=== PATIENT | male | born 1940 | race Caucasian/White ===

== ENCOUNTER 2016-06-24 04:19 | Emergency (ER) | payer MEDICARE, BC ==
[2016-06-24 04:48] VITALS: RESP 18; TEMP 97.8
[2016-06-24] MEDS ORDERED: LORazepam 2 MG/ML SYRINGE IV STA (05:15)
[2016-06-24] MEDS ORDERED: SODIUM CHLORIDE 0.9% 1,000 ML IV STA (05:15)
[2016-06-24] MEDS ORDERED: SODIUM CHLORIDE 0.9% 500 ML IV STA (05:15)
[2016-06-24] MEDS ORDERED: methylPREDNISolone SOD SUCCI 125 MG/2 ML VIAL IV STA (05:15)
[2016-06-24] MEDS ORDERED: HYDROmorphone 1 MG/ML 1 ML SYRINGE IVP STA (05:15)
--- NOTE | 2016-06-24 05:21 | ED ---
Neck Injury/Pain HPI - General Chief Complaint: Neck Pain/Injury Stated Complaint: back/neck pain, corey Time Seen by Provider: 06/24/16 04:55 Source: patient, RN notes reviewed Mode of arrival: wheelchair Limitations: no limitations - History of Present Illness Initial Comments: This is a 76-year-old male who states he had the onset about one week ago some left-sided neck pain it went away and came back as across both sides of his neck he states he has difficulty turning his head because of neck pain he points to the the paraspinous muscles especially on the left he denies any fevers chills sweats blurry vision loss of function to his upper or lower extremities no trauma. He states pain is sharp and 03/05 MD Complaint: neck pain - Related Data Home Medications Medication Instructions Recorded Confirmed Losartan [Cozaar] 50 mg PO DAILY 06/02/15 06/24/16 Metoprolol Tartrate 25 mg PO BID 06/02/15 06/24/16 Tamsulosin HCl [Flomax] 0.4 mg PO HS 06/02/15 06/24/16 Terazosin HCl 5 mg PO HS 06/02/15 06/24/16 Aspirin 81 mg PO DAILY 09/19/15 06/24/16 Prasugrel [Effient] 10 mg PO DAILY 09/19/15 06/24/16 Previous Rx's Medication Instructions Recorded Atorvastatin [Lipitor] 80 mg PO HS #30 tab 06/04/15 Nitroglycerin Sl Tabs [Nitrostat] 0.4 mg SUBLINGUAL Q5M PRN #25 tab 06/04/15 Hydrocodone/Acetaminophen [[place] 1 each PO Q6HR PRN #20 tab 06/24/16 5-325] predniSONE 20 mg PO BID #10 tab 06/24/16 Allergies Allergy/AdvReac Type Severity Reaction Status Date / Time No Known Allergies Allergy Verified 09/19/15 09:12 Review of Systems ROS Statement: Those systems with pertinent positive or pertinent negative responses have been documented in the HPI. ROS Other: All systems not noted in ROS Statement are negative. Past Medical History Past Medical History: Coronary Artery Disease (CAD), Heart Failure, GERD/Reflux , Hyperlipidemia, Hypertension, Myocardial Infarction ([place]), Osteoarthritis (OA) , Prostate Disorder, Thyroid Disorder Additional Past Medical History / Comment(s): Lumbar disc disease, HERNIATED DISC IN BACK. Diverticular disease with diverticulosis BPH dysthymia Last Myocardial Infarction Date:: UNK History of Any Multi-Drug Resistant Organisms: None Reported Past Surgical History: Adenoidectomy, Heart Catheterization With Stent, Joint Replacement, Tonsillectomy Additional Past Surgical History / Comment(s): LT KNEE REPLACMENT. polypectomy colon 2010, epidural steroid injections, 09-19-15 HEART CATH W/STENT TO CIRC. Past Anesthesia/Blood Transfusion Reactions: No Reported Reaction Date of Last Stent Placement:: UNK Past Psychological History: No Psychological Hx Reported Smoking Status: Former smoker Past Alcohol Use History: Occasional Past Drug Use History: None Reported - Past Family History Father History Unknown: Yes Family Medical History: Cancer Mother History Unknown: Yes Family Medical History: Congestive Heart Failure (CHF) Additional Family Medical History / Comment(s): AT AGE 94 General Exam - General Exam Comments Initial Comments: This is a well-developed well-nourished awake alert oriented x 3 male Limitations: no limitations General appearance: alert, in no apparent distress, anxious Head exam: Present: atraumatic, normocephalic, normal inspection Eye exam: Present: normal appearance, PERRL, EOMI. Absent: scleral icterus, conjunctival injection, periorbital swelling ENT exam: Present: normal exam, mucous membranes moist Neck exam: Present: normal inspection, tenderness, other (Tennis palpation of the paraspinous muscles especially the upper cervical spine.). Absent: meningismus, full ROM, lymphadenopathy Respiratory exam: Present: normal lung sounds bilaterally. Absent: respiratory distress, wheezes, rales, rhonchi, stridor Cardiovascular Exam: Present: regular rate, normal rhythm, normal heart sounds. Absent: systolic murmur, diastolic murmur, rubs, gallop, clicks GI/Abdominal exam: Present: soft, normal bowel sounds. Absent: distended, tenderness, guarding, rebound, rigid Extremities exam: Present: normal inspection, full ROM, normal capillary refill. Absent: tenderness, pedal edema, joint swelling, calf tenderness Back exam: Present: normal inspection Neurological exam: Present: alert, oriented X3, CN II-XII intact Psychiatric exam: Present: normal affect, normal mood Skin exam: Present: warm, dry, intact, normal color. Absent: rash Course Vital Signs 06/24/16 04:43 Temperature 97.8 F Pulse Rate 71 Respiratory 18 Rate Blood Pressure 118/65 O2 Sat by Pulse 98 Oximetry Medical Decision Making - Medical Decision Making Patient states he's been much improved his pain is on O2 at this time elected: Be discharged on appropriate medication is a follow-up with his doctor and return when necessary - Lab Data Result diagrams: 06/24/16 05:30 06/24/16 05:30 Lab Results 06/24/16 06/24/16 Range/Units 05:30 05:30 WBC 7.5 (3.8-10.6) k/uL RBC 5.06 (4.30-5.90) m/uL Hgb 14.1 (13.0-17.5) gm/dL Hct 43.3 (39.0-53.0) % MCV 85.5 (80.0-100.0) fL MCH 27.8 (25.0-35.0) pg MCHC 32.5 (31.0-37.0) g/dL RDW 13.7 (11.5-15.5) % Plt Count 124 L (150-450) k/uL Neutrophils % 68 % Lymphocytes % 22 % Monocytes % 6 % Eosinophils % 3 % Basophils % 1 % Neutrophils # 5.1 (1.3-7.7) k/uL Lymphocytes # 1.7 (1.0-4.8) k/uL Monocytes # 0.4 (0-1.0) k/uL Eosinophils # 0.2 (0-0.7) k/uL Basophils # 0.0 (0-0.2) k/uL Sodium 138 (137-145) mmol/L Potassium 4.6 (3.5-5.1) mmol/L Chloride 105 (98-107) mmol/L Carbon Dioxide 20 L (22-30) mmol/L Anion Gap 13 mmol/L BUN 32 H (9-20) mg/dL Creatinine 1.10 (0.66-1.25) mg/dL Est GFR (MDRD) Af Amer >60 (>60 ml/min/1.73 sqM) Est GFR (MDRD) Non-Af >60 (>60 ml/min/1.73 sqM) Glucose 105 H (74-99) mg/dL Calcium 9.5 (8.4-10.2) mg/dL Magnesium 2.1 (1.6-2.3) mg/dL Total Bilirubin 0.7 (0.2-1.3) mg/dL AST 16 L (17-59) U/L ALT 36 (21-72) U/L Alkaline Phosphatase 80 (38-126) U/L Total Protein 7.4 (6.3-8.2) g/dL Albumin 4.1 (3.5-5.0) g/dL - Radiology Data Radiology results: report reviewed (I did review the x-ray reports and degenerative changes noted.), image reviewed Disposition Clinical Impression: Strain of neck muscle Disposition: HOME SELF-CARE Condition: Good Instructions: Cervical Strain (ED) Prescriptions: Hydrocodone/Acetaminophen [[place] 5-325] 1 each PO Q6HR PRN #20 tab PRN Reason: Pain predniSONE 20 mg PO BID #10 tab
[2016-06-24 05:51] LABS: Basophils % (A) 1 %; CHCM 34.1; Eosinophils # (A) 0.2 k/uL (0-0.7); Eosinophils % (A) 3 %; HCT 43.3 % (39.0-53.0); HDW 2.51; HGB 14.1 gm/dL (13.0-17.5); Luc # (Auto) 0.07; Luc % (Auto) 1; Lymphocytes # (A) 1.7 k/uL (1.0-4.8); Lymphocytes % (A) 22 %; MCH 27.8 pg (25.0-35.0); MCHC 32.5 g/dL (31.0-37.0); MCV 85.5 fL (80.0-100.0); Mean Platelet Volume 8.1; Monocytes # (A) 0.4 k/uL (0-1.0); Monocytes % (A) 6 %; Neutrophils # (A) 5.1 k/uL (1.3-7.7); Neutrophils % (A) 68 %; RBC 5.06 m/uL (4.30-5.90); RDW 13.7 % (11.5-15.5); WBC 7.5 k/uL (3.8-10.6); WBC (Perox) 7.84
[2016-06-24 06:06] LABS: ALT 36 U/L (21-72); AST 16 U/L (17-59); Alkaline Phosphatase 80 U/L (38-126); Anion Gap 13 mmol/L; Blood Urea Nitrogen 32 mg/dL (9-20); Calcium 9.5 mg/dL (8.4-10.2); Carbon Dioxide 20 mmol/L (22-30); Chloride 105 mmol/L (98-107); Glucose 105 mg/dL (74-99); Magnesium 2.1 mg/dL (1.6-2.3); Non-African American GFR(MDRD) >60 (>60 ml/min/1.73 sqM); Potassium 4.6 mmol/L (3.5-5.1); Sodium 138 mmol/L (137-145); Total Bilirubin 0.7 mg/dL (0.2-1.3); Total Protein 7.4 g/dL (6.3-8.2)
--- NOTE | 2016-06-24 06:18 | XR ---
EXAMINATION TYPE: XR cervical spine comp DATE OF EXAM: 06/24/2016 6:02 AM COMPARISON: NONE HISTORY: Neck pain TECHNIQUE: 6 views FINDINGS: The vertebra have Fairly normal alignment. There are no cervical ribs. Atlantoaxial facet joint is no t displaced. There is mild spurring of the endplates. Posterior elements are intact. There is uncover tebral spurring and mild bilateral C5-6 neural foraminal impingement. IMPRESSION: Mild spondylotic changes. No fracture.
[2016-06-24 06:42] LABS: Creatine Kinase MB 0.4 ng/mL (0.0-2.4)
[2016-06-24 06:55] VITALS: BP 140/68; PULSE 74
== END 2016-06-24 06:54 | disposition home or self-care (01) ==
LOC: EC 04:19
DX: S16.1XXA Strain of muscle, fascia and tendon at neck level, initial encounter (principal); X58.XXXA Exposure to other specified factors, initial encounter; I10 Essential (primary) hypertension; E78.5 Hyperlipidemia, unspecified; I25.2 Old myocardial infarction; N40.0 Benign prostatic hyperplasia without lower urinary tract symptoms; I25.10 Atherosclerotic heart disease of native coronary artery without angina pectoris; Z79.02 Long term (current) use of antithrombotics/antiplatelets; Z79.899 Other long term (current) drug therapy; Z79.82 Long term (current) use of aspirin; Z95.5 Presence of coronary angioplasty implant and graft; Z87.891 Personal history of nicotine dependence
CPT/HCPCS: 36415; 80053; 82550; 82553; 83735; 85025; 72050; 99283; 96374; 96375; 96361; J2060; J2930; J1170

== ENCOUNTER 2020-03-20 05:23 | Observation (INO) | payer MEDICARE, BC ==
[2020-03-20 05:40] LABS: Glucose,Whole Blood 110 mg/dL (75-99)
[2020-03-20] MEDS ORDERED: MECLIZINE 12.5 MG TAB PO STA ×2 (05:48→08:25)
--- NOTE | 2020-03-20 05:59 | ED ---
Dizziness HPI - General Source: EMS Mode of arrival: EMS Limitations: no limitations - History of Present Illness MD Complaint: other (Vertigo) Onset/Timin -: hour(s) Timing: gradual onset Description: "room spinning" History of Same: No History of Trauma: No Severity: moderate Improves With: remaining still Worsens With: movement Associated Symptoms: denies other symptoms <Tomer Castanon - Last Filed: 03/20/20 05:55> <Issa Gonsalves - Last Filed: 03/20/20 10:19> - General Chief Complaint: Dizziness Stated Complaint: Dizziness Time Seen by Provider: 03/20/20 05:34 - History of Present Illness Initial Comments: This patient is an 79-year-old man who states that he had gotten up to use the bathroom tonight around 2 AM. When he sat up at the bedside he noticed that he had an intense spinning sensation and that he wanted to fall towards his right side. Patient states that now every time he tries to move his head the sensation recurs. The symptoms do improve if he remains very still. There is no chest pain, dyspnea, diaphoresis. No neurologic symptoms. No headache. (Tomer Castanon) - Related Data Home Medications Medication Instructions Recorded Confirmed Metoprolol Tartrate 25 mg PO BID 06/02/15 03/20/20 Terazosin HCl 5 mg PO HS 06/02/15 03/20/20 Aspirin 81 mg PO DAILY 09/19/15 03/20/20 Prasugrel [Effient] 10 mg PO DAILY 09/19/15 06/24/16 Hydrocodone/Acetaminophen [[place] 1 tab PO Q12H PRN 03/20/20 03/20/20 5-325] Losartan Potassium [Cozaar] 100 mg PO DAILY 03/20/20 03/20/20 Prednisolone Acetate/Pf 1 drop BOTH EYES BID 03/20/20 03/20/20 [Prednisolone Acet 1% Eye Drop] valACYclovir [Valtrex] 500 mg PO BID 03/20/20 03/20/20 Previous Rx's Medication Instructions Recorded Atorvastatin [Lipitor] 80 mg PO HS #30 tab 06/04/15 Nitroglycerin Sl Tabs [Nitrostat] 0.4 mg SUBLINGUAL Q5M PRN #25 tab 06/04/15 Allergies Allergy/AdvReac Type Severity Reaction Status Date / Time No Known Allergies Allergy Verified 03/20/20 05:36 Review of Systems ROS Other: All systems not noted in ROS Statement are negative. Constitutional: Denies: fever, chills, weakness Eyes: Denies: eye pain, vision change ENT: Denies: ear pain, hearing loss Respiratory: Denies: cough, dyspnea Cardiovascular: Denies: chest pain, palpitations, orthopnea, edema, syncope Gastrointestinal: Reports: nausea. Denies: abdominal pain, vomiting, diarrhea Genitourinary: Denies: dysuria, hematuria Musculoskeletal: Denies: back pain Skin: Denies: rash Neurological: Reports: vertigo. Denies: headache, weakness, numbness, paresthesias, confusion <KinaTomer - Last Filed: 03/20/20 05:55> ROS Other: All systems not noted in ROS Statement are negative. <Issa Gonsalves - Last Filed: 03/20/20 10:19> ROS Statement: Those systems with pertinent positive or pertinent negative responses have been documented in the HPI. Past Medical History Past Medical History: Coronary Artery Disease (CAD), Heart Failure, GERD/Reflux, Hyperlipidemia, Hypertension, Myocardial Infarction ([place]), Osteoarthritis (OA), Prostate Disorder, Thyroid Disorder Additional Past Medical History / Comment(s): Lumbar disc disease, HERNIATED DISC IN BACK. Diverticular disease with diverticulosis BPH dysthymia Last Myocardial Infarction Date:: UNK History of Any Multi-Drug Resistant Organisms: None Reported Past Surgical History: Adenoidectomy, Heart Catheterization With Stent, Joint Replacement, Tonsillectomy Additional Past Surgical History / Comment(s): LT KNEE REPLACMENT. polypectomy colon 2010, epidural steroid injections, 09-19-15 HEART CATH W/STENT TO CIRC. Past Anesthesia/Blood Transfusion Reactions: No Reported Reaction Date of Last Stent Placement:: UNK Past Psychological History: No Psychological Hx Reported Smoking Status: Former smoker Past Alcohol Use History: Occasional Past Drug Use History: None Reported - Past Family History Father History Unknown: Yes Family Medical History: Cancer Mother History Unknown: Yes Family Medical History: Congestive Heart Failure (CHF) Additional Family Medical History / Comment(s): AT AGE 94 <KinaTomer - Last Filed: 03/20/20 05:55> General Exam Limitations: no limitations General appearance: alert, in no apparent distress Head exam: Present: atraumatic, normocephalic Eye exam: Present: normal appearance, PERRL, EOMI, nystagmus. Absent: scleral icterus, conjunctival injection ENT exam: Present: normal oropharynx Neck exam: Present: normal inspection, full ROM. Absent: tenderness Respiratory exam: Present: normal lung sounds bilaterally. Absent: respiratory distress, wheezes, rales, rhonchi, stridor Cardiovascular Exam: Present: regular rate, normal rhythm, normal heart sounds. Absent: systolic murmur, diastolic murmur, rubs, gallop GI/Abdominal exam: Present: soft. Absent: distended, tenderness, guarding, rebound Extremities exam: Present: normal inspection, normal capillary refill. Absent: pedal edema, calf tenderness Neurological exam: Present: alert, oriented X3, CN II-XII intact. Absent: motor sensory deficit Skin exam: Present: warm, dry, intact, normal color. Absent: rash <Tomer Castanon - Last Filed: 03/20/20 05:55> Expanded Motor strength exam: RUE: 5, LUE: 5, RLE: 5, LLE: 5 <Issa Gonsalves - Last Filed: 03/20/20 10:19> Course <Issa Gonsalves - Last Filed: 03/20/20 10:19> Vital Signs 03/20/20 03/20/20 03/20/20 05:29 06:41 07:26 Temperature 98.3 F Pulse Rate 72 74 78 Respiratory 20 18 20 Rate Blood Pressure 170/101 142/91 146/89 O2 Sat by Pulse 98 95 98 Oximetry 03/20/20 08:54 Temperature 98.1 F Pulse Rate 77 Respiratory 16 Rate Blood Pressure 158/95 O2 Sat by Pulse 98 Oximetry - Reevaluation(s) Reevaluation #1: 03/20/20 08:31 patient reevaluated by myself, Dr. Gonsalves. Patient had earlier told Dr. Davis that he had felt better however at this time states he does feel no better than previous. Patient will be provided further medication and reevaluated. 03/20/20 09:53 patient again reevaluated and still does not feel all that much better. Patient states when he moves and tries to sit up he does feel dizzy and off balance. Patient updated on results and plan. Dr. Melvin has been paged for admission covering for Dr. Adames. 03/20/20 10:19 case was discussed with Dr. Melvin, who will admit. 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 - EKG Results: EKG: interpreted by ERMD, sinus rhythm (Rate 70 bpm), normal axis, normal ST/T <Tomer Castanon - Last Filed: 03/20/20 05:55> Medical Decision Making - Lab Data Result diagrams: 03/20/20 05:51 03/20/20 05:51 - Radiology Data Radiology results: report reviewed (CT angiogram head and neck shows moderate atrophy. No focal stenosis or aneurysmal change Stenosis right internal carotid artery 65% and left internal carotid artery 70%. No acute hemorrhage.) <Issa Gonsalves - Last Filed: 03/20/20 10:19> - Lab Data Lab Results 03/20/20 03/20/20 03/20/20 Range/Units 05:38 05:51 05:51 WBC 6.5 (3.8-10.6) k/uL RBC 4.96 (4.30-5.90) m/uL Hgb 14.2 (13.0-17.5) gm/dL Hct 44.3 (39.0-53.0) % MCV 89.3 (80.0-100.0) fL MCH 28.7 (25.0-35.0) pg MCHC 32.1 (31.0-37.0) g/dL RDW 14.2 (11.5-15.5) % Plt Count 153 (150-450) k/uL Neutrophils % 62 % Lymphocytes % 28 % Monocytes % 6 % Eosinophils % 3 % Basophils % 0 % Neutrophils # 4.0 (1.3-7.7) k/uL Lymphocytes # 1.8 (1.0-4.8) k/uL Monocytes # 0.4 (0-1.0) k/uL Eosinophils # 0.2 (0-0.7) k/uL Basophils # 0.0 (0-0.2) k/uL Sodium 135 L (137-145) mmol/L Potassium 4.6 (3.5-5.1) mmol/L Chloride 108 H (98-107) mmol/L Carbon Dioxide 20 L (22-30) mmol/L Anion Gap 7 mmol/L BUN 25 H (9-20) mg/dL Creatinine 1.00 (0.66-1.25) mg/dL Est GFR (CKD-EPI)AfAm 81 (>60 ml/min/1.73 sqM) Est GFR (CKD-EPI)NonAf 70 (>60 ml/min/1.73 sqM) Glucose 123 H (74-99) mg/dL POC Glucose (mg/dL) 110 H (75-99) mg/dL POC Glu [employer] Zarina Harrison Calcium 9.0 (8.4-10.2) mg/dL Total Bilirubin 0.5 (0.2-1.3) mg/dL AST 21 (17-59) U/L ALT 17 (4-49) U/L Alkaline Phosphatase 84 (38-126) U/L Troponin I (0.000-0.034) ng/mL Total Protein 7.0 (6.3-8.2) g/dL Albumin 3.9 (3.5-5.0) g/dL 03/20/20 Range/Units 05:51 WBC (3.8-10.6) k/uL RBC (4.30-5.90) m/uL Hgb (13.0-17.5) gm/dL Hct (39.0-53.0) % MCV (80.0-100.0) fL MCH (25.0-35.0) pg MCHC (31.0-37.0) g/dL RDW (11.5-15.5) % Plt Count (150-450) k/uL Neutrophils % % Lymphocytes % % Monocytes % % Eosinophils % % Basophils % % Neutrophils # (1.3-7.7) k/uL Lymphocytes # (1.0-4.8) k/uL Monocytes # (0-1.0) k/uL Eosinophils # (0-0.7) k/uL Basophils # (0-0.2) k/uL Sodium (137-145) mmol/L Potassium (3.5-5.1) mmol/L Chloride (98-107) mmol/L Carbon Dioxide (22-30) mmol/L Anion Gap mmol/L BUN (9-20) mg/dL Creatinine (0.66-1.25) mg/dL Est GFR (CKD-EPI)AfAm (>60 ml/min/1.73 sqM) Est GFR (CKD-EPI)NonAf (>60 ml/min/1.73 sqM) Glucose (74-99) mg/dL POC Glucose (mg/dL) (75-99) mg/dL POC Glu [employer]er D[employer] Ring ID Calcium (8.4-10.2) mg/dL Total Bilirubin (0.2-1.3) mg/dL AST (17-59) U/L ALT (4-49) U/L Alkaline Phosphatase (38-126) U/L Troponin I <0.012 (0.000-0.034) ng/mL Total Protein (6.3-8.2) g/dL Albumin (3.5-5.0) g/dL Disposition <Tomer Castanon - Last Filed: 03/20/20 05:55> Is patient prescribed a controlled substance at d/c from ED?: No Decision Time: 09:54 <Issa Gonsalves - Last Filed: 03/20/20 10:19> Clinical Impression: Vertigo Disposition: ADMITTED IP TO THIS HOSP
[2020-03-20 06:03] LABS: Basophils % (A) 0 %; Eosinophils # (A) 0.2 k/uL (0-0.7); Eosinophils % (A) 3 %; HCT 44.3 % (39.0-53.0); HGB 14.2 gm/dL (13.0-17.5); Lymphocytes # (A) 1.8 k/uL (1.0-4.8); Lymphocytes % (A) 28 %; MCH 28.7 pg (25.0-35.0); MCHC 32.1 g/dL (31.0-37.0); MCV 89.3 fL (80.0-100.0); Mean Platelet Volume 7.7; Monocytes # (A) 0.4 k/uL (0-1.0); Monocytes % (A) 6 %; Neutrophils % (A) 62 %; Platelet Count 153 k/uL (150-450); RBC 4.96 m/uL (4.30-5.90); RDW 14.2 % (11.5-15.5); WBC 6.5 k/uL (3.8-10.6)
[2020-03-20 06:10] LABS: Albumin 3.9 g/dL (3.5-5.0); Potassium 4.6 mmol/L (3.5-5.1); Total Bilirubin 0.5 mg/dL (0.2-1.3)
[2020-03-20] MEDS ORDERED: METOCLOPRAMIDE 5 MG/ML 2 ML VIAL IVP STA (08:25)
[2020-03-20] MEDS ORDERED: SCOPOLAMINE 1.5MG/72HR PATCH TRANSDERM STA (08:25)
--- NOTE | 2020-03-20 08:28 | CT ---
EXAMINATION TYPE: CT angio head neck DATE OF EXAM: 03/20/2020 HISTORY: dizziness code stroke. Acute onset neuro deficit. COMPARISON: None. CT DLP: 1741.4 mGycm. Automated Exposure Control for Dose Reduction was Utilized. TECHNIQUE: CTA scan of the head and neck are performed without and with IV Contrast, patient injecte d with 65 mL of Isovue 370, axial images are obtained, coronal and sagittal reformatted images are re viewed. Three-D reconstructed images are created on an independent workstation and reviewed. Noncontr ast CT head. FINDINGS: Carotid/Vascular Structures: Bovine-type arch. Moderate peripheral plaque in the arch vessels greates t in the left subclavian artery causing stenosis approaching but under 50%. Right common carotid ana maría ry shows normal origin from the right brachiocephalic artery. Some tortuous course to the right commo n carotid artery with mild to moderate mixed plaque distal aspects. No significant stenosis. Moderate mixed plaque right carotid bulb extends into proximal internal carotid artery with significant steno sis as there is more prominent posterior plaque, luminal diameter narrowed to 2.1 mm raw data image 3 95 and reconstitutes to 6.2 mm distal to this image 425. Remainder of right internal carotid artery shows mild to moderate calcified plaque supraclinoid segment without significant stenosis. Right exte rnal carotid artery shows no significant plaque or stenosis. Left common carotid artery shows tortuous course without significant plaque or stenosis. There is mor e severe mixed plaque predominantly noncalcified plaque at the left carotid bulb extending into proxi mal internal carotid artery causing significant stenosis. Lumen diameter narrowed to 2.1 mm raw data image 400 with reconstitution to 6.6 mm distally. Remainder left internal carotid artery shows mild t o moderate calcified plaque supraclinoid segment without significant stenosis. Patent external caroti d artery without significant stenosis. Codominant vertebrobasilar system. Vertebral arteries patent to basilar junction. No significant foca l stenosis or aneurysmal change in the posterior circulation. Patent left posterior communicating art garth. Hypoplastic right posterior communicating artery. Anterior circulation shows patent anterior communicating artery without significant focal stenosis or aneurysmal change. Incidental small caliber right A1 segment noted. Other: Noncontrast CT brain shows no acute intracranial hemorrhage or midline shift. Diffuse ventricu lar and sulcal prominence. Low-attenuation in the deep and periventricular white matter. Visualized s inuses are clear and globes are intact. Moderate to severe disc space narrowing C5-C6 and C6-C7 levels with mild to moderate spurring. Scolio tic curvature on coronal images. IMPRESSION: 1. Diffuse moderate cerebral atrophy and mild chronic small vessel ischemic change. 2. No significant focal stenosis or aneurysmal change at the level of the [place]. 3. Left greater than right atherosclerotic changes, hemodynamic significant stenosis proximal right i nternal carotid artery measured 65% and slightly Greater proximal left internal carotid artery measur ed near 70% noted.
[2020-03-20] MEDS ORDERED: NALOXONE 0.4 MG/ML 1 ML VIAL IV PRN (09:55)
[2020-03-20] MEDS ORDERED: MECLIZINE 25 MG TAB PO PRN (09:56)
[2020-03-20] MEDS: SODIUM CHLORIDE 0.9% 1,000 ML IV SCH ×2 (10:22→23:20)
--- NOTE | 2020-03-20 11:24 | P.CRDCN ---
History of Present Illness Consult date: 03/20/20 History of present illness: CHIEF COMPLAINT: dizziness HISTORY OF PRESENT ILLNESS: This is a 79-year old male with a past medical history significant for hypertension hyperlipidemia, chronic vertigo, and coronary disease. Patient follows in the office with Dr. Ritter. We have been asked to see the patient in consultation for vertigo. Patient examined this point the bedside with Dr. Ritter. Patient has a history of vertigo. Patient reports getting up to use them in the middle of the night and reports having a spinning sensation. According to the nurse the patient was swaying [id number] in the emergency room. However the patient was able to walk without any issues from the wheelchair to his bed upon admission to the medical floor. He currently denies chest pain or pressure. Denies shortness of breath. patient underwent cardiac catheterization with Dr. Ritter in 2016 with stent placement to the circumflex. Dr. Ritter reports patient had an echocardiogram completed recently on an outpatient basis which revealed an ejection fraction of 45%. Patient also underwent a Cassie scan stress test last week which was negative for reversible ischemia. EKG reviewed by Dr. Ritter revealed old inferior [place] with no evidence of ischemic changes. DIAGNOSTICS: EKG reviewed by Dr. Ritter revealed old inferior [place] with no evidence of ischemic changes. Similar to previous EKG Laboratory data: WBC 6.5. Hemoglobin 14.2. Platelet count 153. Sodium 135. Potassium 4.6. BUN 25. Creatinine 1.0. Troponin negative 1. Current home cardiac medications include metoprolol 25 mg daily, Cozaar 100 mg daily, aspirin [address] angiogram revealed 65% stenosis of right internal carotid artery and 70% elyssa nosis of left internal carotid artery REVIEW OF SYSTEMS: At the time of my exam: CONSTITUTIONAL: Denies fever or chills. HEENT: Denies blurred vision, vision changes, or eye pain. Denies hemoptysis CARDIOVASCULAR: Denies chest pain, orthopnea, PND or palpitations RESPIRATORY: No shortness of breath. GASTROINTESTINAL: Denies abdominal pain. Denies nausea or vomiting. HEMATOLOGIC: Denies bleeding disorders. GENITOURINARY: Denies any blood in urine. SKIN: Denies pruitis. Denies rash. PHYSICAL EXAM: VITAL SIGNS: Reviewed. GENERAL: Well-developed in no acute distress. HEENT: Head is normocephalic. Pupils are equal, round. Sclerae anicteric. Mucous membranes of the mouth are moist. Neck supple. No JVD or thyromegaly LUNGS: Respirations even and unlabored. Lungs essentially clear to auscultation bilaterally. HEART: Regular rate and rhythm. S1 and S2 heard. ABDOMEN: Soft. Nondistended. Nontender. EXTREMITIES: Normal range of motion. No clubbing or cyanosis. Peripheral pulses intact. No lower extremity edema NEUROLOGIC: Awake and alert. Oriented x 3. ASSESSMENT: Acute on chronic vertigo Coronary artery disease with previous stent placement to circumflex, 2016 Ischemic cardiomyopathy, EF 45% Hypertension Hyperlipidemia Carotid stenosis PLAN: Orthostatic blood pressures reviewed and were unremarkable Resume home cardiac medications Continue telemetry monitoring Vascular surgery and neurology on consult. Await evaluation. Patient had recent echo and stress test performed on an outpatient basis No intervention to be performed from a cardiac standpoint. Nurse practitioner note has been reviewed by physician. Signing provider agrees with the documented findings, assessment, and plan of care. Past Medical History Past Medical History: Coronary Artery Disease (CAD), Heart Failure, GERD/Reflux, Hyperlipidemia, Hypertension, Myocardial Infarction ([place]), Osteoarthritis (OA), Prostate Disorder, Thyroid Disorder Additional Past Medical History / Comment(s): Lumbar disc disease, HERNIATED DISC IN BACK. Diverticular disease with diverticulosis BPH dysthymia Last Myocardial Infarction Date:: UNK History of Any Multi-Drug Resistant Organisms: None Reported Past Surgical History: Adenoidectomy, Heart Catheterization With Stent, Joint Replacement, Tonsillectomy Additional Past Surgical History / Comment(s): LT KNEE REPLACMENT. polypectomy colon 2010, epidural steroid injections, 09-19-15 HEART CATH W/STENT TO CIRC. Past Anesthesia/Blood Transfusion Reactions: No Reported Reaction Date of Last Stent Placement:: UNK Past Psychological History: No Psychological Hx Reported Smoking Status: Former smoker Past Alcohol Use History: Occasional Past Drug Use History: None Reported - Past Family History Father History Unknown: Yes Family Medical History: Cancer Mother History Unknown: Yes Family Medical History: Congestive Heart Failure (CHF) Additional Family Medical History / Comment(s): AT AGE 94 Medications and Allergies Home Medications Medication Instructions Recorded Confirmed Type Metoprolol Tartrate 25 mg PO BID 06/02/15 03/20/20 History Terazosin HCl 5 mg PO HS 06/02/15 03/20/20 History Nitroglycerin Sl Tabs [Nitrostat] 0.4 mg SUBLINGUAL Q5M PRN #25 tab 06/04/15 03/20/20 Rx Aspirin 81 mg PO DAILY 09/19/15 03/20/20 History Hydrocodone/Acetaminophen [[place] 1 tab PO Q12H PRN 03/20/20 03/20/20 History 5-325] Losartan Potassium [Cozaar] 100 mg PO DAILY 03/20/20 03/20/20 History Prednisolone Acetate/Pf 1 drop BOTH EYES BID 03/20/20 03/20/20 History [Prednisolone Acet 1% Eye Drop] Tamsulosin [Flomax] 0.4 mg PO DAILY 03/20/20 03/20/20 History valACYclovir [Valtrex] 500 mg PO BID 03/20/20 03/20/20 History Allergies Allergy/AdvReac Type Severity Reaction Status Date / Time No Known Allergies Allergy Verified 03/20/20 05:36 Physical Exam Vitals: Vital Signs Temp Pulse Pulse Pulse Pulse Resp BP 03/20/20 10:59 97.5 F L 80 83 86 18 03/20/20 10:20 97.8 F 79 18 149/91 03/20/20 08:54 98.1 F 77 16 158/95 03/20/20 07:26 78 20 146/89 03/20/20 06:41 74 18 142/91 03/20/20 05:29 98.3 F 72 20 170/101 BP BP BP Pulse Ox 03/20/20 10:59 156/91 161/88 160/90 98 03/20/20 10:20 98 03/20/20 08:54 98 03/20/20 07:26 98 03/20/20 06:41 95 03/20/20 05:29 98 Intake and Output 03/19/20 03/20/20 03/20/20 22:59 06:59 14:59 Other: Weight 97.069 kg Results 03/20/20 05:51 03/20/20 05:51 Cardiac Enzymes 03/20/20 03/20/20 Range/Units 05:51 05:51 AST 21 (17-59) U/L Troponin I <0.012 (0.000-0.034) ng/mL CBC 03/20/20 Range/Units 05:51 WBC 6.5 (3.8-10.6) k/uL RBC 4.96 (4.30-5.90) m/uL Hgb 14.2 (13.0-17.5) gm/dL Hct 44.3 (39.0-53.0) % Plt Count 153 (150-450) k/uL Comprehensive Metabolic Panel 03/20/20 Range/Units 05:51 Sodium 135 L (137-145) mmol/L Potassium 4.6 (3.5-5.1) mmol/L Chloride 108 H (98-107) mmol/L Carbon Dioxide 20 L (22-30) mmol/L BUN 25 H (9-20) mg/dL Creatinine 1.00 (0.66-1.25) mg/dL Glucose 123 H (74-99) mg/dL Calcium 9.0 (8.4-10.2) mg/dL AST 21 (17-59) U/L ALT 17 (4-49) U/L Alkaline Phosphatase 84 (38-126) U/L Total Protein 7.0 (6.3-8.2) g/dL Albumin 3.9 (3.5-5.0) g/dL Current Medications Generic Name Dose Route Start Last Admin Trade Name Freq PRN Reason Stop Dose Admin Aspirin 81 mg 03/20/20 11:15 Aspirin 81 Mg PO DAILY ROSEANNA Atorvastatin Calcium 80 mg 03/20/20 21:00 Atorvastatin 80 Mg Tab PO HS ROSEANNA Sodium Chloride 1,000 mls @ 75 mls/hr 03/20/20 10:00 03/20/20 10:22 Saline 0.9% IV 75 mls/hr .[id number] ROSEANNA Administration Losartan Potassium 100 mg 03/20/20 11:15 Losartan 50 Mg Tab PO DAILY ROSEANNA Meclizine HCl 25 mg 03/20/20 16:00 Meclizine 25 Mg Tab PO TID ROSEANNA Metoclopramide HCl 10 mg 03/20/20 12:30 Metoclopramide 10 Mg Tab PO ACHS ROSEANNA Naloxone HCl 0.2 mg 03/20/20 09:55 Naloxone 0.4 Mg/Ml 1 Ml Vial IV Q2M PRN Opioid Reversal Intake and Output 03/19/20 03/20/20 03/20/20 22:59 06:59 14:59 Other: Weight 97.069 kg 03/20/20 05:51 03/20/20 05:51
[2020-03-20] MEDS: ASPIRIN 81 MG PO SCH (11:27)
[2020-03-20] MEDS: METOPROLOL TARTRATE 25 MG TAB PO SCH ×2 (11:28→20:26)
[2020-03-20] MEDS: LOSARTAN 50 MG TAB PO SCH (11:28)
[2020-03-20] MEDS ORDERED: HYDROcodone/APAP 5-325MG 1 EACH TAB PO PRN (12:30)
--- NOTE | 2020-03-20 12:38 | P.HPIM ---
History of Present Illness H&P Date: 03/20/20 HISTORY OF PRESENT ILLNESS This is an 79-year-old male patient of Dr. Ladd with past medical history of chronic back pain, coronary artery disease, hypertension, h yperlipidemia. History of acute DE in 2016 status post angioplasty and stent placement of the circumflex with previous angioplasty of the RCA. Patient states that he woke up at 2:30 in the morning to get to the bathroom and he had to sit on the side of the bed and all the sudden he had onset of dizziness and he had to hold onto the bed. He sat for a few minutes and then was able to get himself to the bathroom by hanging onto the regan. He returned to the bed and once he closed his eyes and laid down he felt better. He denies having any difficulty with eating or drinking. He denies any fever or chills. He denies any runny nose, ear pain. No ear pain, no sore throat No diarrhea. He denies any recent changes to medications. He is following with an dye house worker, Dr. Casper, regarding shingles to the left eye area. Patient presented to [facility] emergency center for evaluation. CBC unremarkable. Sodium 135, potassium 4.6, chloride 108, CO2 20, BUN 25 and creatinine 1. Blood sugar 123. Liver function tests normal. Troponin negative. CT angiogram of the brain revealed diffuse moderate cerebral atrophy and mild chronic small vessel ischemic change. No significant focal stenosis or aneurysm change at the [place]. Left greater than right atherosclerotic changes, hemodynamically significant stenosis in the proximal right internal carotid artery measuring 65% and slightly greater at 70% in the left internal carotid artery. He is status post scopolamine patch, Reglan, Antivert. He has been placed on the cardiac observation unit and neurology consult, cardiology consult, vascular surgery consult and MRI of the brain ordered. REVIEW OF SYSTEMS Constitutional: No fever, no chills, no night sweats. No weight change. No weakness, fatigue or lethargy. No daytime sleepiness. EENT: No headache. No blurred vision or double vision, no loss of vision. No loss of Hearing, no ringing in the ears, no dizziness. No nasal drainage or congestion. No epistaxis. No sore throat. Lungs: No shortness of breath, cough, no sputum production. No wheezing. Cardiovascular: No chest pain, no lower extremity edema. No palpitations. No paroxysmal nocturnal dyspnea. No orthopnea. No lightheadedness or dizziness. No syncopal episodes. Abdominal: No abdominal pain. No nausea, vomiting. No diarrhea. No constipation. No bloody or tarry stools.. No loss of appetite. Genitourinary: No dysuria, increased frequency, urgency. No urinary retention. Musculoskeletal: No myalgias. No muscle weakness, no gait dysfunction, no frequent falls. No back pain. No neck pain. Integumentary: No wounds, no lesions. No rash or pruritus. No unusual bruising. No change in hair or nails. Neurologic: No aphasia. No facial droop. No change in mentation. No head injury. No headache. No paralysis. No paresthesia. Psychiatric: No depression. No anxiety. No mood swings. Endocrine: No abnormal blood sugars. No weight change. No excessive sweating or thirst. No cold intolerance. PHYSICAL EXAMINATION Gen: This is an 79-year-old male. He is resting in bed and appears to be comfortable and in no acute distress. HEENT: Head is atraumatic, normocephalic. Pupils equal, round. Sclerae is anicteric. No nystagmus. NECK: Supple. No JVD. No lymphadenopathy. No thyromegaly. LUNGS: Clear to auscultation. No wheezes or rhonchi. No intercostal retractions. HEART: Regular rate and rhythm. Systolic murmur. ABDOMEN: Soft. Bowel sounds are present. No masses. No tenderness. EXTREMITIES: No pedal edema. No calf tenderness. NEUROLOGICAL: Patient is awake, alert and oriented x3. Cranial nerves 2 through 12 are grossly intact. ASSESSMENT AND PLAN 1. Dizziness. MRI of the brain, cardiology consult, neurology consult, mecliz ine 3 times daily, orthostatic vital signs. 2. Carotid artery disease, 70% left, 65% right. Consult with vascular surgery. 3. Hypertension. Continue Lopressor and Cozaar 100 mg daily. 4. Hyperlipidemia. Start Lipitor 80 mg at bedtime per cardiology. 5. History of coronary artery disease with previous DE and stenting. Continue aspirin 81 mg daily, Lipitor 80 mg daily, Lopressor 25 mg twice daily. 6. Shingles. Continue Valtrex 500 mg twice daily, prednisolone eyedrops. 7. Benign prostatic hypertrophy. Continue tamsulosin 0.4 mg daily, terazosin 5 mg at bedtime. 8. DVT prophylaxis. Heparin subcu. 9. GI prophylaxis. Protonix. Patient placed as an observation status. Discharge plan: Most likely home on Saturday. Impression and plan of care have been directed as dictated by the signing physician. Minerva Amador nurse practitioner acting as scribe for signing physician. 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 Diverticular disease with diverticulosis BPH dysthymia Last Myocardial Infarction Date:: UNK History of Any Multi-Drug Resistant Organisms: None Reported Past Surgical History: Adenoidectomy, Heart Catheterization With Stent, Joint Replacement, Tonsillectomy Additional Past Surgical History / Comment(s): LT KNEE REPLACMENT. polypectomy colon 2010, epidural steroid injections, 09-19-15 HEART CATH W/STENT TO CIRC. Past Anesthesia/Blood Transfusion Reactions: No Reported Reaction Date of Last Stent Placement:: UNK Past Psychological History: No Psychological Hx Reported Smoking Status: Former smoker Past Alcohol Use History: Occasional Past Drug Use History: None Reported - Past Family History Father History Unknown: Yes Family Medical History: Cancer Mother History Unknown: Yes Family Medical History: Congestive Heart Failure (CHF) Additional Family Medical History / Comment(s): AT AGE 94 Medications and Allergies Home Medications Medication Instructions Recorded Confirmed Type Metoprolol Tartrate 25 mg PO BID 06/02/15 03/20/20 History Terazosin HCl 5 mg PO HS 06/02/15 03/20/20 History Nitroglycerin Sl Tabs [Nitrostat] 0.4 mg SUBLINGUAL Q5M PRN #25 tab 06/04/15 03/20/20 Rx Aspirin 81 mg PO DAILY 09/19/15 03/20/20 History Hydrocodone/Acetaminophen [[place] 1 tab PO Q12H PRN 03/20/20 03/20/20 History 5-325] Losartan Potassium [Cozaar] 100 mg PO DAILY 03/20/20 03/20/20 History Prednisolone Acetate/Pf 1 drop BOTH EYES BID 03/20/20 03/20/20 History [Prednisolone Acet 1% Eye Drop] Tamsulosin [Flomax] 0.4 mg PO DAILY 03/20/20 03/20/20 History valACYclovir [Valtrex] 500 mg PO BID 03/20/20 03/20/20 History Allergies Allergy/AdvReac Type Severity Reaction Status Date / Time No Known Allergies Allergy Verified 03/20/20 05:36 Physical Exam Vitals: Vital Signs Temp Pulse Resp BP Pulse Ox 03/20/20 08:54 98.1 F 77 16 158/95 98 03/20/20 07:26 78 20 146/89 98 03/20/20 06:41 74 18 142/91 95 03/20/20 05:29 98.3 F 72 20 170/101 98 Intake and Output 03/19/20 03/20/20 03/20/20 22:59 06:59 14:59 Other: Weight 97.069 kg Results CBC & Chem 7: 03/20/20 05:51 03/20/20 05:51 Labs: Abnormal Lab Results - Last 24 Hours (Table) 03/20/20 03/20/20 Range/Units 05:38 05:51 Sodium 135 L (137-145) mmol/L Chloride 108 H (98-107) mmol/L Carbon Dioxide 20 L (22-30) mmol/L BUN 25 H (9-20) mg/dL Glucose 123 H (74-99) mg/dL POC Glucose (mg/dL) 110 H (75-99) mg/dL
[2020-03-20] MEDS: METOCLOPRAMIDE 10 MG TAB PO SCH ×3 (13:36→20:26)
[2020-03-20] MEDS: MECLIZINE 25 MG TAB PO SCH ×2 (15:28→21:45)
--- NOTE | 2020-03-20 15:35 | P.GSCN ---
History of Present Illness History of present illness: 79-year-old white male, patient came to the emergency room with history of dizziness this morning came to the emergency room. There is no history of TIA or M [place] S. Patient has been put on Antivert 3 times a day patient has hypertension, hyperlipidemia, coronary artery disease patient had a stroke ton CT angiogram showed chronic small vessel disease Right carotid is 65% stenosis left is 70% stenosis Surgical history patient had a history of coronary angioplasty by Dr. Ritter Neck examination neck is supple no bruit appreciated Chest is clear first and second sound normal Abdomen soft nontender Center system well oriented time and place normal motor function up lower extremity and a CT angiogram showed right-sided 65% left side 70% stenosis and chronic small vessel disease of the brain with atrophy Plan is patient is on Antivert, control of hypertension patient on her aspirin a day at this point no surgical intervention we'll follow with you Past Medical History Past Medical History: Coronary Artery Disease (CAD), Heart Failure, GERD/Reflux, Hyperlipidemia, Hypertension, Myocardial Infarction ([place]), Osteoarthritis (OA), Prostate Disorder, Thyroid Disorder Additional Past Medical History / Comment(s): Lumbar disc disease, HERNIATED DISC IN BACK. Diverticular disease with diverticulosis BPH dysthymia Last Myocardial Infarction Date:: UNK History of Any Multi-Drug Resistant Organisms: None Reported Past Surgical History: Adenoidectomy, Heart Catheterization With Stent, Joint Replacement, Tonsillectomy Additional Past Surgical History / Comment(s): LT KNEE REPLACMENT. polypectomy colon 2010, epidural steroid injections, 09-19-15 HEART CATH W/STENT TO CIRC. Past Anesthesia/Blood Transfusion Reactions: No Reported Reaction Date of Last Stent Placement:: UNK Past Psychological History: No Psychological Hx Reported Smoking Status: Former smoker Past Alcohol Use History: Occasional Past Drug Use History: None Reported - Past Family History Father History Unknown: Yes Family Medical History: Cancer Mother History Unknown: Yes Family Medical History: Congestive Heart Failure (CHF) Additional Family Medical History / Comment(s): AT AGE 94 Medications and Allergies Home Medications Medication Instructions Recorded Confirmed Type Metoprolol Tartrate 25 mg PO BID 06/02/15 03/20/20 History Terazosin HCl 5 mg PO HS 06/02/15 03/20/20 History Nitroglycerin Sl Tabs [Nitrostat] 0.4 mg SUBLINGUAL Q5M PRN #25 tab 01/09/16 10/25/20 Rx Aspirin 81 mg PO DAILY 09/19/15 03/20/20 History Hydrocodone/Acetaminophen [[place] 1 tab PO Q12H PRN 03/20/20 03/20/20 History 5-325] Losartan Potassium [Cozaar] 100 mg PO DAILY 03/20/20 03/20/20 History Prednisolone Acetate/Pf 1 drop BOTH EYES BID 03/20/20 03/20/20 History [Prednisolone Acet 1% Eye Drop] Tamsulosin [Flomax] 0.4 mg PO DAILY 03/20/20 03/20/20 History valACYclovir [Valtrex] 500 mg PO BID 03/20/20 03/20/20 History Allergies Allergy/AdvReac Type Severity Reaction Status Date / Time No Known Allergies Allergy Verified 03/20/20 05:36 Surgical - Exam Vital Signs Temp Pulse Resp BP Pulse Ox 98.3 F 72 20 170/101 98 03/20/20 05:29 03/20/20 05:29 03/20/20 05:29 03/20/20 05:29 03/20/20 05:29 Results - Labs 03/20/20 05:51 03/20/20 05:51 Abnormal Lab Results - Last 24 Hours (Table) 03/20/20 03/20/20 Range/Units 05:38 05:51 Sodium 135 L (137-145) mmol/L Chloride 108 H (98-107) mmol/L Carbon Dioxide 20 L (22-30) mmol/L BUN 25 H (9-20) mg/dL Glucose 123 H (74-99) mg/dL POC Glucose (mg/dL) 110 H (75-99) mg/dL Diabetes panel 03/20/20 Range/Units 05:51 Sodium 135 L (137-145) mmol/L Potassium 4.6 (3.5-5.1) mmol/L Chloride 108 H (98-107) mmol/L Carbon Dioxide 20 L (22-30) mmol/L BUN 25 H (9-20) mg/dL Creatinine 1.00 (0.66-1.25) mg/dL Glucose 123 H (74-99) mg/dL Calcium 9.0 (8.4-10.2) mg/dL AST 21 (17-59) U/L ALT 17 (4-49) U/L Alkaline Phosphatase 84 (38-126) U/L Total Protein 7.0 (6.3-8.2) g/dL Albumin 3.9 (3.5-5.0) g/dL Calcium panel 03/20/20 Range/Units 05:51 Calcium 9.0 (8.4-10.2) mg/dL Albumin 3.9 (3.5-5.0) g/dL Pituitary panel 03/20/20 Range/Units 05:51 Sodium 135 L (137-145) mmol/L Potassium 4.6 (3.5-5.1) mmol/L Chloride 108 H (98-107) mmol/L Carbon Dioxide 20 L (22-30) mmol/L BUN 25 H (9-20) mg/dL Creatinine 1.00 (0.66-1.25) mg/dL Glucose 123 H (74-99) mg/dL Calcium 9.0 (8.4-10.2) mg/dL Adrenal panel 03/20/20 Range/Units 05:51 Sodium 135 L (137-145) mmol/L Potassium 4.6 (3.5-5.1) mmol/L Chloride 108 H (98-107) mmol/L Carbon Dioxide 20 L (22-30) mmol/L BUN 25 H (9-20) mg/dL Creatinine 1.00 (0.66-1.25) mg/dL Glucose 123 H (74-99) mg/dL Calcium 9.0 (8.4-10.2) mg/dL Total Bilirubin 0.5 (0.2-1.3) mg/dL AST 21 (17-59) U/L ALT 17 (4-49) U/L Alkaline Phosphatase 84 (38-126) U/L Total Protein 7.0 (6.3-8.2) g/dL Albumin 3.9 (3.5-5.0) g/dL
[2020-03-20] MEDS: valACYclovir 500 MG TAB PO SCH (20:26)
[2020-03-20] MEDS: HEPARIN SODIUM,PORCINE 5,000 UNIT/ML 1 ML VIAL SQ SCH (20:26)
[2020-03-20] MEDS: prednisoLONE ACETATE 1% OPHTH DROPS 5 ML BTL BOTH EYES SCH (20:27)
[2020-03-20] MEDS ORDERED: ATORVASTATIN 80 MG TAB PO SCH (21:00)
[2020-03-20] MEDS ORDERED: DOXAZOSIN 4 MG TAB PO SCH (21:00)
[2020-03-21] MEDS: METOCLOPRAMIDE 10 MG TAB PO SCH ×2 (06:46→13:39)
[2020-03-21] MEDS ORDERED: PANTOPRAZOLE 40 MG TABLET PO SCH (07:30)
--- NOTE | 2020-03-21 08:00 | P.DS ---
Providers Date of admission: 03/20/20 09:57 Expected date of discharge: 03/21/20 Attending physician: Edna Melvin Consults: 03/20/20 09:55 Consult Physician Urgent Consulting Provider: Nohemy Norton Consult Reason/Comments: intractable vertigo Do you want consulting provider notified?: Yes 03/20/20 10:13 Consult Physician Routine Consulting Provider: Tl Magana Consult Reason/Comments: carotid artery disease Do you want consulting provider notified?: Yes 03/20/20 10:43 Consult Physician Routine Consulting Provider: Qiana Ritter Consult Reason/Comments: dizziness Do you want consulting provider notified?: Yes Primary care physician: [facility] Course: HISTORY OF PRESENT ILLNESS This is an 79-year-old male patient of Dr. Adames with past medical history of chronic back pain, coronary artery disease, hypertension, hyperlipidemia. History of acute AK in 2016 status post angioplasty and stent placement of the circumflex with previous angioplasty of the RCA. Patient states that he woke up at 2:30 in the morning to get to the bathroom and he had to sit on the side of the bed and all the sudden he had onset of dizziness and he had to hold onto the bed. He sat for a few minutes and then was able to get himself to the bathroom by hanging onto the regan. He returned to the bed and once he closed his eyes and laid down he felt better. He denies having any difficulty with eating or drinking. He denies any fever or chills. He denies any runny nose, ear pain. No ear pain, no sore throat No diarrhea. He denies any recent changes to medications. He is following with an skip loader, Dr. Casper, regarding shingles to the left eye area. Patient presented to [facility] emergency center for evaluation. CBC unremarkable. Sodium 135, potassium 4.6, chloride 108, CO2 20, BUN 25 and creatinine 1. Blood sugar 123. Liver function tests normal. Troponin negative. CT angiogram of the brain revealed diffuse moderate cerebral atrophy and mild chronic small vessel ischemic change. No significant focal stenosis or aneurysm change at the [place]. Left greater than right atherosclerotic changes, hemodynamically significant stenosis in the proximal right internal carotid artery measuring 65% and slightly greater at 70% in the left internal carotid artery. He is status post scopolamine patch, Reglan, Antivert. He has been placed on the cardiac observation unit and neurology consult, cardiology consult, vascular surgery consult and MRI of the brain ordered. 03/21: Patient has been seen by Dr. Samano with recommendations to continue meclizine 25 mg 3 times daily along with aspirin and Plavix but patient stated he had side effects from Plavix and thus Brilinta 90 mg twice daily was recommended as well as continuing Lipitor for the carotid stenosis. Patient will discuss use of Brilinta in the office on his next visit with Dr. Adames. Dr. Magana with recommendations to follow OP. MRI of the brain reveals age related changes of atrophy and probable chronic small vessel ischemia. Mild sinus disease. Patient will be discharged home today in stable condition. She was also cleared for discharge by Dr. Ritter with plan for follow-up in the office. Patient's dizziness is improved today. He has some slight nystagmus. Patient w ill be discharged home today in stable condition. ASSESSMENT AND PLAN 1. Acute vertigo, benign positional vertigo. 2. Carotid artery disease, 70% left, 65% right. 3. Hypertension. 4. Hyperlipidemia. 5. History of coronary artery disease with previous AK and stenting. 6. Shingles. 7. Benign prostatic hypertrophy. Discharge plan: home Impression and plan of care have been directed as dictated by the signing physician. Minerva Amador nurse practitioner acting as scribe for signing physician. Patient Condition at Discharge: Good Plan - Discharge Summary Discharge Rx Participant: No New Discharge Prescriptions: New Meclizine [Antivert] 25 mg PO TID tab Atorvastatin [Lipitor] 80 mg PO HS tab Continue Terazosin HCl 5 mg PO HS Metoprolol Tartrate 25 mg PO BID Nitroglycerin Sl Tabs [Nitrostat] 0.4 mg SUBLINGUAL Q5M PRN #25 tab PRN Reason: Chest Pain Aspirin 81 mg PO DAILY Hydrocodone/Acetaminophen [[place] 5-325] 1 tab PO Q12H PRN PRN Reason: Pain Losartan Potassium [Cozaar] 100 mg PO DAILY valACYclovir [Valtrex] 500 mg PO BID Prednisolone Acetate/Pf [Prednisolone Acet 1% Eye Drop] 1 drop BOTH EYES BID Tamsulosin [Flomax] 0.4 mg PO DAILY Discontinued Prasugrel [Effient] 10 mg PO DAILY Discharge Medication List Metoprolol Tartrate 25 mg PO BID 06/02/15 [History] Terazosin HCl 5 mg PO HS 06/02/15 [History] Nitroglycerin Sl Tabs [Nitrostat] 0.4 mg SUBLINGUAL Q5M PRN #25 tab 06/04/15 [Rx] Aspirin 81 mg PO DAILY 09/19/15 [History] Hydrocodone/Acetaminophen [[place] 5-325] 1 tab PO Q12H PRN 03/20/20 [History] Losartan Potassium [Cozaar] 100 mg PO DAILY 03/20/20 [History] Prednisolone Acetate/Pf [Prednisolone Acet 1% Eye Drop] 1 drop BOTH EYES BID 03/20/20 [History] Tamsulosin [Flomax] 0.4 mg PO DAILY 03/20/20 [History] valACYclovir [Valtrex] 500 mg PO BID 03/20/20 [History] Atorvastatin [Lipitor] 80 mg PO HS tab 03/21/20 [Rx] Meclizine [Antivert] 25 mg PO TID tab 03/21/20 [Rx] Follow up Appointment(s)/Referral(s): Qiana Ritter MD [STAFF PHYSICIAN] - 04/04/20 3:30 pm Armen Adames MD [Primary Care Provider] - 1 Week (Office is currently closed, please call the office Saturday am (03/22/20) to schedule appointment.) Patient Instructions/Handouts: Vertigo (DC) Discharge Disposition: HOME SELF-CARE
[2020-03-21] MEDS: ASPIRIN 81 MG PO SCH (08:14)
[2020-03-21] MEDS: LOSARTAN 50 MG TAB PO SCH (08:14)
[2020-03-21] MEDS: HEPARIN SODIUM,PORCINE 5,000 UNIT/ML 1 ML VIAL SQ SCH (08:14)
[2020-03-21] MEDS: MECLIZINE 25 MG TAB PO SCH ×2 (08:14→16:37)
[2020-03-21] MEDS: prednisoLONE ACETATE 1% OPHTH DROPS 5 ML BTL BOTH EYES SCH (08:15)
[2020-03-21] MEDS: METOPROLOL TARTRATE 25 MG TAB PO SCH (08:15)
[2020-03-21] MEDS: valACYclovir 500 MG TAB PO SCH (08:16)
[2020-03-21] MEDS ORDERED: TAMSULOSIN 0.4 MG CAP.ER.24H PO SCH (09:00)
--- NOTE | 2020-03-21 10:13 | P.PN ---
Subjective Progress Note Date: 03/21/20 CHIEF COMPLAINT: dizziness HISTORY OF PRESENT ILLNESS: Patient examined this morning at the bedside. He denies chest pain or pressure. Denies short of breath. Denies dizziness at the time of my examination. Vital signs are stable. PHYSICAL EXAM: VITAL SIGNS: Reviewed. GENERAL: Well-developed in no acute distress. HEENT: Head is normocephalic. Pupils are equal, round. Sclerae anicteric. Mucous membranes of the mouth are moist. Neck supple. No JVD or thyromegaly LUNGS: Respirations even and unlabored. Lungs essentially clear to auscultation bilaterally. HEART: Regular rate and rhythm. S1 and S2 heard. ABDOMEN: Soft. Nondistended. Nontender. EXTREMITIES: Normal range of motion. No clubbing or cyanosis. Peripheral pulses intact. No lower extremity edema NEUROLOGIC: Awake and alert. Oriented x 3. ASSESSMENT: Acute on chronic vertigo Coronary artery disease with previous stent placement to circumflex, 2016 Ischemic cardiomyopathy, EF 45% Hypertension Hyperlipidemia Carotid stenosis PLAN: Patient is stable for discharge home today from a cardiac standpoint. Will defer to internal medicine Patient to follow-up outpatient with Dr. Ritter Nurse practitioner note has been reviewed by physician. Signing provider agrees with the documented findings, assessment, and plan of care. Objective - Vital Signs Vital signs: Vital Signs Temp 97.4 F L 03/21/20 03:10 Pulse 63 03/21/20 03:10 Resp 18 03/21/20 03:10 BP 150/80 03/21/20 03:10 Pulse Ox 97 03/21/20 03:10 Intake & Output 03/20/20 03/21/20 03/21/20 18:59 06:59 18:59 Intake Total 775 Balance 775 Weight 97.069 kg Intake: Intake, IV Titration 525 Amount Sodium Chloride 0.9% 1, 525 000 ml @ 75 mls/hr IV . [id number] [facility] Rx#:[id number] Oral 250 Other: Voiding Method Toilet Toilet # Voids 3 1 # Bowel Movements 1 1 - Labs CBC & Chem 7: 03/20/20 05:51 03/20/20 05:51
[2020-03-21 10:34] VITALS: BP 138/81; RESP 16
--- NOTE | 2020-03-21 12:05 | P.CNNES ---
History of Present Illness Consult date: 03/21/20 Requesting physician: Issa Gonsalves Reason for Consult: dizziness History of Present Illness: 79-year-old right-handedgentleman with a medical history of coronary artery disease, hypertension, hyperlipidemia, myocardial infarction in 2016 status post angioplasty and stent that presented to the emergency department on 03/20/2020 for dizziness. On 03/20/2020 patient stated that he woke up to go the bathroom at around 2:30am and he felt the dizzy getting out of bed. He felt backward in bed. He could not describe the dizziness. Patient to hold onto the bed. Therefore he had to sit down for a few minutes and the patient was holding onto the regan to go to the bathroom. Upon returning to the bed he felt better. He felt the dizziness are provoked with position and alleviated with rest. Denies nausea or vomitting. Denies fever or chills. Denies ringing of the ears or new hearing loss. 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 Patient denies of any recent change in medication. Currently the patient is doing much better after starting on Meclizine. Of note patient sees an offal separator regarding shingles of the left eye. Hospital workup consisted of: Patient had the CT head with angiography of the head and neck which was reported as diffuse moderate cerebral atrophy and mild chronic small vessel ischemic change. No significant focal stenosis or aneurysm changes at the level of [place]. Left greater than right of his chronic changes, hemodynamic significant stenosis proximal right internal carotid artery measured 65% and slightly greater proximal left internal carotid artery measured near 70%. I personally reviewed the CT of the head and I did not see any acute ischemia or hemorrhage. There is no appreciable encephalomalacia seen. EKG was reported as normal sinus rhythm. Ventricular rate of 70. Anterior infarct, age undetermined. Abnormal EKG. Orthostatic vitals with heart rate was negative for orthostatic hypotension. Because of the carotid stenosis the vascular surgery team was consulted and they stated that no surgical intervention. Review of Systems Review of system: The 12 point system was reviewed and apparent positive and negative per HPI. Past Medical History Past Medical History: Coronary Artery Disease (CAD), Heart Failure, GERD/Reflux, Hyperlipidemia, Hypertension, Myocardial Infarction ([place]), Osteoarthritis (OA), Prostate Disorder, Thyroid Disorder Additional Past Medical History / Comment(s): Lumbar disc disease, HERNIATED DISC IN BACK. Diverticular disease with diverticulosis BPH dysthymia Last Myocardial Infarction Date:: UNK History of Any Multi-Drug Resistant Organisms: None Reported Past Surgical History: Adenoidectomy, Heart Catheterization With Stent, Joint Replacement, Tonsillectomy Additional Past Surgical History / Comment(s): LT KNEE REPLACMENT. polypectomy colon 2010, epidural steroid injections, 09-19-15 HEART CATH W/STENT TO CIRC. Past Anesthesia/Blood Transfusion Reactions: No Reported Reaction Date of Last Stent Placement:: UNK Past Psychological History: No Psychological Hx Reported Smoking Status: Former smoker Past Alcohol Use History: Occasional Past Drug Use History: None Reported - Past Family History Father History Unknown: Yes Family Medical History: Cancer Mother History Unknown: Yes Family Medical History: Congestive Heart Failure (CHF) Additional Family Medical History / Comment(s): AT AGE 94 Medications and Allergies Home Medications Medication Instructions Recorded Confirmed Type Metoprolol Tartrate 25 mg PO BID 06/02/15 03/20/20 History Terazosin HCl 5 mg PO HS 06/02/15 03/20/20 History Nitroglycerin Sl Tabs [Nitrostat] 0.4 mg SUBLINGUAL Q5M PRN #25 tab 06/04/15 03/20/20 Rx Aspirin 81 mg PO DAILY 09/19/15 03/20/20 History Hydrocodone/Acetaminophen [[place] 1 tab PO Q12H PRN 03/20/20 03/20/20 History 5-325] Losartan Potassium [Cozaar] 100 mg PO DAILY 03/20/20 03/20/20 History Prednisolone Acetate/Pf 1 drop BOTH EYES BID 03/20/20 03/20/20 History [Prednisolone Acet 1% Eye Drop] Tamsulosin [Flomax] 0.4 mg PO DAILY 03/20/20 03/20/20 History valACYclovir [Valtrex] 500 mg PO BID 03/20/20 03/20/20 History Atorvastatin [Lipitor] 80 mg PO HS tab 03/21/20 Rx Meclizine [Antivert] 25 mg PO TID tab 03/21/20 Rx Allergies Allergy/AdvReac Type Severity Reaction Status Date / Time No Known Allergies Allergy Verified 03/20/20 05:36 Physical Examination - Vital Signs Vital Signs: Vital Signs Temp Pulse Pulse Pulse Resp BP BP 03/21/20 09:00 98 F 64 69 58 L 16 123/68 123/68 03/21/20 03:10 97.4 F L 63 18 03/20/20 19:30 97.9 F 68 80 69 18 131/72 143/71 03/20/20 15:00 97.5 F L 65 16 BP Pulse Ox 03/21/20 09:00 138/81 97 03/21/20 03:10 150/80 97 03/20/20 19:30 138/90 95 03/20/20 15:00 132/70 96 Intake and Output 03/20/20 03/21/20 03/21/20 22:59 06:59 14:59 Intake Total 775 350 Balance 775 350 Intake: Intake, IV Titration 525 150 Amount Sodium Chloride 0.9% 1, 525 150 000 ml @ 75 mls/hr IV . [id number] [facility] Rx#:[id number] Oral 250 Tube Feeding 200 Other: Voiding Method Toilet Toilet Toilet # Voids 1 2 # Bowel Movements 1 GENERAL: The patient is lying in bed and is not in acute distress. CHEST: The heart rate is regular rate rhythm. No murmurs to auscultation. Carotid bruit on the left. . LUNG: Clear to auscultation bilaterally no wheezing noted throughout. Not labored breathing. ABDOMEN/GI: Bowel sounds present in all 4 quadrants. No tenderness to palpation throughout. NEUROLOGICAL: Higher mental function: The patient is awake, alert, oriented to self, place and time. Patient is following commands. No aphasia and no neglect. Cranial nerves: The pupils are round, equal and reactive to light and accommodation. Visual saini are full to confrontation throughout. Extraocular movement is intact no nystagmus is noted. Facial sensation is normal to touch throughout. The facial strength is normal throughout. Hearing is normal bilaterally to hand rub. Tongue is midline and moved [id number] without any difficulty. No dysarthria is noted. Shoulder shrug is normal bilaterally. Motor: Gait is wide based (has chronic knee problems). The strength is 5 over 5 throughout. Normal tone and bulk. Cerebellum: Normal finger to nose heel bilaterally. Sensation: Sensation is normal to touch throughout. Reflexes (right/left): 1+ throughout. Plantars are downgoing bilaterally. Results AST of 21, ALT of 17. - Laboratory Findings CBC and BMP: 03/20/20 05:51 03/20/20 05:51 Abnormal Lab Findings: Abnormal Labs 03/20/20 03/20/20 05:38 05:51 Sodium 135 L Chloride 108 H Carbon Dioxide 20 L BUN 25 H Glucose 123 H POC Glucose (mg/dL) 110 H Assessment and Plan Assessment: Acute vertigo and seem possibly benign position vertigo--improved Bilateral carotid stenosis (left > right with left 70% and right 65%) both are asymptomatic Hypertension Hyperlipidemia Coronary artery disease Plan: Continue meclizine 25 mg 1 tablet 3 times a day. Because of the carotid stenosis the vascular surgery team was consulted and they stated that no surgical intervention. For cartoid stenosis, patient is currently on aspirin 81 mg. Recommend the patient to be on dual antiplatelets aspirin 81mg and adding Plavix 75mg daily b ut he stated he had side-effects from Plavix but couldn't tell what. I recommended Adding Brilinta 90mg bid, he said he will talk to his Primary upon following-up with him as outpatient and will consider it Continue Lipitor 80 mg Thank you for the consult. No further work-up needed. Recommend patient to follow-up with neurologist and vascular team as outpatient for bilateral carotid stenosis. Moe Samano M.D. Neuro-hospitalist Time with Patient: Greater than 30
--- NOTE | 2020-03-21 12:53 | P.PN ---
Progress Note - Text 79-year-old gentleman came to the emergency room with history of dizzy spell no history of TIA or murmurs few venous patient responded to an to work head is angiogram which showe bilateral carotid stenosis(. Patient to has normal motor function patient is responding to antevert going home on aspirin and Plavix patient will follow with Dr. Keith Santa is office
--- NOTE | 2020-03-21 15:39 | MR ---
MR brain without contrast HISTORY: Dizziness Multiplanar multisequence imaging through the brain Correlation to head CT 03/20/2020 There is no restricted diffusion. Cortical atrophy is again seen. No hemorrhage or hydrocephalus. Cer ebellopontine angles, corpus callosum, pituitary, cervical medullary junction are normal. Periventric ular scattered hyperintensities are present on inversion recovery T2-weighted sequences, approximatel y 10-15 lesions. There are normal vascular flow voids. The orbits show symmetric appearance. Mild inf lammatory changes present in the ethmoid air cells, mastoids are well aerated. IMPRESSION: Age-related changes of atrophy and probable chronic small vessel ischemia. Mild sinus dis ease.
[2020-03-21 15:52] VITALS: PULSE 72; TEMP 97.6
== END 2020-03-21 16:52 | disposition home or self-care (01) ==
LOC: EC 05:23 → 3NCARDOBS 09:57
PROVIDERS: ADMIT Internal Medicine; ATTEND Internal Medicine
DX: R42 Dizziness and giddiness (principal); B02.9 Zoster without complications; E78.5 Hyperlipidemia, unspecified; H91.91 Unspecified hearing loss, right ear; I11.0 Hypertensive heart disease with heart failure; I25.10 Atherosclerotic heart disease of native coronary artery without angina pectoris; I25.2 Old myocardial infarction; I25.5 Ischemic cardiomyopathy; I50.9 Heart failure, unspecified; I65.23 Occlusion and stenosis of bilateral carotid arteries; I73.9 Peripheral vascular disease, unspecified; N40.0 Benign prostatic hyperplasia without lower urinary tract symptoms; Z79.02 Long term (current) use of antithrombotics/antiplatelets; Z79.82 Long term (current) use of aspirin; Z79.899 Other long term (current) drug therapy; Z82.49 Family history of ischemic heart disease and other diseases of the circulatory system; Z87.891 Personal history of nicotine dependence; Z95.5 Presence of coronary angioplasty implant and graft
CPT/HCPCS: 93005 ×2; 96361 ×2; 96372 ×2; 96374; 99285; 36415; 80053; 84484; 85025; 70496; 70498; 70551; G0378 ×2; J1644 ×2; J2765; Q9967

== ENCOUNTER 2020-07-22 13:16 | Emergency (ER) | payer MEDICARE, BC ==
[2020-07-22 13:32] VITALS: BP 148/87; PULSE 89; RESP 18; TEMP 97.6
--- NOTE | 2020-07-22 14:07 | ED ---
Eye Problem HPI - General Chief complaint: Eye Problems Stated complaint: eye problem Time Seen by Provider: 07/22/20 14:00 Source: patient, RN notes reviewed Mode of arrival: ambulatory Limitations: no limitations - History of Present Illness Initial comments: 80-year-old male complaining that he had a contact stuck in his eye. stuck in his eye since Saturday. He was in no apparent distress or pain while sitting up then and reexamined. He noted that the nurse saw the contact and easily removed form. She denied any blurry vision, pain, irritation after contact was removed. He does follow-up with an eye doctor due to having shingles in his eye. He noted that he was ready to go now the contact is out. He denied any headache chest pain short of breath nausea vomiting diarrhea constipation fever fatigue chills change in vision. - Related Data Home Medications Medication Instructions Recorded Confirmed Metoprolol Tartrate 25 mg PO BID 06/02/15 03/20/20 Terazosin HCl 5 mg PO HS 06/02/15 03/20/20 Aspirin 81 mg PO DAILY 09/19/15 03/20/20 Hydrocodone/Acetaminophen [[place] 1 tab PO Q12H PRN 03/20/20 03/20/20 5-325] Losartan Potassium [Cozaar] 100 mg PO DAILY 03/20/20 03/20/20 Prednisolone Acetate/Pf 1 drop BOTH EYES BID 03/20/20 03/20/20 [Prednisolone Acet 1% Eye Drop] Tamsulosin [Flomax] 0.4 mg PO DAILY 03/20/20 03/20/20 valACYclovir [Valtrex] 500 mg PO BID 03/20/20 03/20/20 Previous Rx's Medication Instructions Recorded Nitroglycerin Sl Tabs [Nitrostat] 0.4 mg SUBLINGUAL Q5M PRN #25 tab 06/04/15 Atorvastatin [Lipitor] 80 mg PO HS tab 03/21/20 Meclizine [Antivert] 25 mg PO TID tab 03/21/20 Allergies Allergy/AdvReac Type Severity Reaction Status Date / Time No Known Allergies Allergy Verified 07/22/20 13:31 Review of Systems ROS Statement: Those systems with pertinent positive or pertinent negative responses have been documented in the HPI. ROS Other: All systems not noted in ROS Statement are negative. Past Medical History Past Medical History: Coronary Artery Disease (CAD), Heart Failure, GERD/Reflux, Hyperlipidemia, Hypertension, Myocardial Infarction ([place]), Osteoarthritis (OA), Prostate Disorder, Thyroid Disorder Additional Past Medical History / Comment(s): Lumbar disc disease, HERNIATED DISC IN BACK. Diverticular disease with diverticulosis BPH dysthymia Last Myocardial Infarction Date:: UNK History of Any Multi-Drug Resistant Organisms: None Reported Past Surgical History: Adenoidectomy, Heart Catheterization With Stent, Joint Replacement, Tonsillectomy Additional Past Surgical History / Comment(s): LT KNEE REPLACMENT. polypectomy colon 2010, epidural steroid injections, 09-19-15 HEART CATH W/STENT TO CIRC. Past Anesthesia/Blood Transfusion Reactions: No Reported Reaction Date of Last Stent Placement:: UNK Past Psychological History: No Psychological Hx Reported Smoking Status: Former smoker Past Alcohol Use History: Occasional Past Drug Use History: None Reported - Past Family History Father History Unknown: Yes Family Medical History: Cancer Mother History Unknown: Yes Family Medical History: Congestive Heart Failure (CHF) Additional Family Medical History / Comment(s): AT AGE 94 General Exam Limitations: no limitations General appearance: alert, in no apparent distress Head exam: Present: atraumatic, normocephalic, normal inspection Eye exam: Present: normal appearance, PERRL, EOMI. Absent: scleral icterus, conjunctival injection, periorbital swelling Neck exam: Present: normal inspection. Absent: tenderness, meningismus, lymphadenopathy Respiratory exam: Present: normal lung sounds bilaterally. Absent: respiratory distress, wheezes, rales, rhonchi, stridor Cardiovascular Exam: Present: regular rate, normal rhythm, normal heart sounds. Absent: systolic murmur, diastolic murmur, rubs, gallop, clicks Extremities exam: Present: normal inspection, full ROM, normal capillary refill. Absent: tenderness, pedal edema, joint swelling, calf tenderness Neurological exam: Present: alert, oriented X3, CN II-XII intact Psychiatric exam: Present: normal affect, normal mood Skin exam: Present: warm, dry, intact, normal color. Absent: rash Course Vital Signs 07/22/20 13:27 Temperature 97.6 F Pulse Rate 89 Respiratory 18 Rate Blood Pressure 148/87 O2 Sat by Pulse 95 Oximetry Medical Decision Making - Medical Decision Making 80-year-old male complaining of contacts stuck in his eye.. Contact was removed without difficulty by nurse, patient no longer has complaint of pain or irritation. Inspection of eye did not reveal any scleral injection or gross abnormalities. Case discussed with Dr. Gonsalves, was decided patient could discharge home with follow-up to eye doctor. Disposition Clinical Impression: Contact lens stuck Disposition: HOME SELF-CARE Condition: Stable Instructions (If sedation given, give patient instructions): Eye Foreign Body (ED) Additional Instructions: Please return to the Emergency Department if symptoms worsen or any other concerns. Follow-up with primary care and furniture duster in 1-2 days. Continues to use at home medications as prescribed. Is patient prescribed a controlled substance at d/c from ED?: No Referrals: Armen Adames MD [Primary Care Provider] - 1-2 days Time of Disposition: 14:09
== END 2020-07-22 14:21 | disposition home or self-care (01) ==
LOC: EC 13:16
DX: H18.822 Corneal disorder due to contact lens, left eye (principal); I25.10 Atherosclerotic heart disease of native coronary artery without angina pectoris; I11.0 Hypertensive heart disease with heart failure; I50.9 Heart failure, unspecified; K21.9 Gastro-esophageal reflux disease without esophagitis; E78.5 Hyperlipidemia, unspecified; I25.2 Old myocardial infarction; M19.90 Unspecified osteoarthritis, unspecified site; N40.0 Benign prostatic hyperplasia without lower urinary tract symptoms; E07.9 Disorder of thyroid, unspecified; Z79.82 Long term (current) use of aspirin; Z79.899 Other long term (current) drug therapy; Z95.5 Presence of coronary angioplasty implant and graft; Z87.891 Personal history of nicotine dependence; Z96.652 Presence of left artificial knee joint
CPT/HCPCS: 99283

== ENCOUNTER → 2021-03-17 | Outpatient (CLI) | payer MEDICARE, BC | END | disposition home or self-care (01) | LOC: LABWHC1 09:13 | PROVIDERS: ATTEND Internal Medicine Geriatric Medicine | DX: Z53.9 Procedure and treatment not carried out, unspecified reason (principal) ==

== ENCOUNTER → 2021-03-17 | Outpatient (CLI) | payer MEDICARE, BC ==
[2021-03-17 10:19] LABS: Basophils % (A) 1 %; Eosinophils # (A) 0.1 k/uL (0-0.7); Eosinophils % (A) 2 %; HCT 44.7 % (39.0-53.0); HGB 14.6 gm/dL (13.0-17.5); Lymphocytes # (A) 1.7 k/uL (1.0-4.8); Lymphocytes % (A) 30 %; MCH 30.9 pg (25.0-35.0); MCHC 32.7 g/dL (31.0-37.0); MCV 94.4 fL (80.0-100.0); Mean Platelet Volume 7.9; Monocytes # (A) 0.4 k/uL (0-1.0); Monocytes % (A) 6 %; Neutrophils # (A) 3.5 k/uL (1.3-7.7); Neutrophils % (A) 60 %; Platelet Count 165 k/uL (150-450); RBC 4.73 m/uL (4.30-5.90); RDW 13.1 % (11.5-15.5); WBC 5.9 k/uL (3.8-10.6)
[2021-03-17 10:27] LABS: Appearance,Urine Clear (Clear); Bilirubin,Urine Negative (Negative); Blood,Urine Negative (Negative); Color,Urine Yellow; Glucose,Urine (UA) Negative (Negative); Ketones,Urine Negative (Negative); Leukocyte Esterase,Urine Negative (Negative); Nitrite,Urine Negative (Negative); Protein,Urine Negative (Negative); Specific Gravity,Urine 1.018 (1.001-1.035); Urobilinogen,Urine <2.0 mg/dL (<2.0)
[2021-03-17 10:31] LABS: Albumin 4.2 g/dL (3.5-5.0); Calcium 9.6 mg/dL (8.4-10.2); Potassium 5.3 mmol/L (3.5-5.1); Total Bilirubin 0.6 mg/dL (0.2-1.3); Total Protein 7.4 g/dL (6.3-8.2)
[2021-03-17 10:43] LABS: Partial Thromboplastin Time 26.3 sec (22.0-30.0); Prothrombin Time 10.9 sec (9.0-12.0)
== END | disposition home or self-care (01) ==
LOC: LABPAT 09:10
PROVIDERS: ATTEND Orthopaedic Surgery Sports Medicine
DX: Z01.812 Encounter for preprocedural laboratory examination (principal); M17.11 Unilateral primary osteoarthritis, right knee
CPT/HCPCS: 36415; 80053; 81003; 85025; 85610; 85730; 87070

== ENCOUNTER 2021-03-30 11:04 | Day surgery (SDC) | payer MEDICARE, BC ==
[2021-03-27 14:32] VITALS: BMI 30.1
[~2021-03-30 11:04] MED LIST: ACETAMINOPHEN TAB 500 MG TAB PO PRN; GABAPENTIN 300 MG CAP PO PRN; HYDROmorphone 0.5 MG/0.5 ML SYRINGE IVP PRN; MELOXICAM 7.5 MG TAB PO PRN; MIDAZOLAM 2 MG/2 ML VIAL IV PRN; ONDANSETRON 4 MG/2 ML VIAL IVP PRN; TRANEXAMIC ACID 1,000 MG in SODIUM CHLORIDE 0.9% 100 ML IVPB PRN
[2021-03-30] MEDS: LACTATED RINGERS 1,000 ML IV SCH ×3 (11:40→16:19)
[2021-03-30] MEDS ORDERED: MIDAZOLAM 2 MG/2 ML VIAL IVP ONE ×2 (11:52→12:00)
[2021-03-30 12:20] LABS: Albumin 4.2 g/dL (3.5-5.0); Calcium 9.5 mg/dL (8.4-10.2); Total Bilirubin 0.6 mg/dL (0.2-1.3); Total Protein 7.4 g/dL (6.3-8.2)
[2021-03-30] MEDS ORDERED: fentaNYL (PF) 50 MCG/ML 2 ML AMP ONE (12:35)
[2021-03-30] MEDS ORDERED: diphenhydrAMINE 50 MG/ML 1 ML VIAL ONE (12:35)
[2021-03-30] MEDS ORDERED: MIDAZOLAM 2 MG/2 ML VIAL ONE (12:35)
[2021-03-30] MEDS ORDERED: SODIUM CHLORIDE 0.9% 100 ML BAG ONE (12:35)
[2021-03-30] MEDS ORDERED: DEXAMETHASONE SOD PHOSPHATE 4 MG/ML 1 ML VIAL ONE (12:35)
[2021-03-30] MEDS ORDERED: ROPIVACAINE 5 MG/ML 30 ML VIAL ONE (12:35)
[2021-03-30] MEDS ORDERED: TRANEXAMIC ACID 1,000 MG/10 ML VIAL ONE (12:35)
[2021-03-30] MEDS ORDERED: PROPOFOL 10 MG/ML 20 ML VIAL IV ONE (12:35)
[2021-03-30] MEDS ORDERED: SODIUM CHLORIDE 0.9% (PF) 10 ML VIAL ONE (12:35)
[2021-03-30] MEDS ORDERED: ceFAZolin 3,000 MG in SODIUM CHLORIDE 0.9% IRRIGATIO 3,000 ML IRRIGATION ONE (12:42)
[2021-03-30] MEDS ORDERED: NA PHOS,M-B/NA PHOS,DI-BA 133 ML ENEMA RECTAL PRN (12:43)
[2021-03-30] MEDS ORDERED: HYDROcodone/APAP 5-325MG 1 EACH TAB PO PRN (12:43)
[2021-03-30] MEDS ORDERED: MAGNESIUM HYDROXIDE 2,400 MG/10 ML CUP PO PRN (12:43)
[2021-03-30] MEDS ORDERED: Acetaminophen-Codeine 300-30mg TAB PO PRN (12:43)
[2021-03-30] MEDS ORDERED: traMADol 50 MG TAB PO PRN (12:43)
[2021-03-30] MEDS ORDERED: bisacodyL 10 MG SUPP RECTAL PRN (12:43)
[2021-03-30] MEDS ORDERED: ONDANSETRON 4 MG/2 ML VIAL IVP PRN (12:43)
[2021-03-30] MEDS ORDERED: HYDROmorphone 0.5 MG/0.5 ML SYRINGE IVP PRN ×2 (12:43)
[2021-03-30] MEDS ORDERED: NALOXONE 0.4 MG/ML 1 ML VIAL IV PRN (12:43)
[2021-03-30] MEDS ORDERED: HYDROmorphone 0.2 MG/1 ML SYRINGE IVP PRN (12:43)
--- NOTE | 2021-03-30 12:56 | P.ANPRN ---
Procedure Note - Anesthesia - Nerve Block Performed Right Est[place]an[place] Single Time Out Performed: Yes Date of Procedure: 03/30/21 Location of Patient: PreOp Indication: Acute Post-Operative Pain, Requested by Surgeon Specifically requested for management of pain by DrChauncey: [facility] Sedation Type: Sedate with meaningful contact maintained Preparation: Sterile Prep, Sterile Dressing Position: Supine Catheter: None Needle Types: Pajunk Needle Gauge: 21 Ultrasound used to visualize needle placement: Yes Ultrasound used to observe medication spread: Yes Injectate: 0.5% Ropivacaine (see comment for volume) (10 ml of 0.5% Ropivacaine mixed with 10 ml of 09% Nacl and 10 mg of dexamethasone) Blood Aspirated: No Pain Paresthesia on Injection Noted: No Resistance on Injection: Normal Image Stored and Saved: Yes
--- NOTE | 2021-03-30 12:57 | P.ANPRN ---
Procedure Note - Anesthesia - Nerve Block Performed Right Adductor Canal Infusion Time Out Performed: Yes Date of Procedure: 03/30/21 Location of Patient: PreOp Indication: Acute Post-Operative Pain, Requested by Surgeon Specifically requested for management of pain by DrChauncey: [facility] Sedation Type: Sedate with meaningful contact maintained Preparation: Sterile Prep, Sterile Dressing Position: Supine Catheter: Indwelling Needle Types: [place]unk Needle Gauge: 18 Ultrasound used to visualize needle placement: Yes Ultrasound used to observe medication spread: Yes Injectate: 0.5% Ropivacaine (see comment for volume) (10 ml of 0.5% Ropivacaine mixed with 10 ml of 09% Nacl .) Blood Aspirated: No Pain Paresthesia on Injection Noted: No Resistance on Injection: Normal Image Stored and Saved: Yes Events: Uneventful and Well Tolerated
[2021-03-30] MEDS ORDERED: ROPIVACAINE 0.2%-NS ON-Q PUMP 1,090 MG, EMPTY PAIN BALL 1 EACH MISCELLANE PRN (14:28)
--- NOTE | 2021-03-30 14:57 | XR ---
EXAMINATION TYPE: XR knee limited RT DATE OF EXAM: 03/30/2021 COMPARISON: NONE TECHNIQUE: Two views submitted HISTORY: Post op FINDINGS: There is a prosthetic knee in near anatomic alignment. There is soft tissue edema and emphysema. Evette cency within the distal femur also noted may be chronic correlate clinically previous surgery or intr aosseous lesion. IMPRESSION: 1. Postoperative change. Appears in near-anatomic alignment. See above.
--- NOTE | 2021-03-30 15:00 | OP ---
OPERATIVE REPORT DATE OF PROCEDURE: 03/30/2021. SURGEON: Antione Heart MD. TOP LIFT TRIMMER: Tre MAXWELL. PREOP DIAGNOSIS: Right knee osteoarthrosis. POSTOP DIAGNOSIS: Right knee osteoarthrosis. OPERATION: Right total knee arthroplasty. ANESTHESIA: Spinal with sedation. ESTIMATED BLOOD LOSS: 100 mL. TOURNIQUET: Tourniquet time was 48 minutes at 250 mmHg. COMPLICATIONS: None apparent. DRAINS: None. DISPOSITION: Postanesthesia care unit. INDICATIONS: Ba is a very pleasant 80-year-old male with longstanding history of right knee pain. History and physical examination are consistent with advanced right knee osteoarthrosis. He has been through significant nonoperative management up to this point. Further treatment options were discussed. He has decided to go forward with right total knee arthroplasty. Risks of procedure were discussed in detail. These risks include, but not limited to risk of infection, nerve damage, bleeding, pain, risk of deep vein thrombosis which could lead to fatal pulmonary embolism. There is also risk of loosening of the implant which could require revision operation. The patient understands these risks. All of his questions were answered to his satisfaction. Appropriate informed consent was obtained. DESCRIPTION OF THE PROCEDURE: The patient was identified in preoperative holding area. Surgical site was marked by both the patient and myself. He was given 2 grams of Ancef IV for prophylactic purposes. He was then transferred to the operative suite. He was placed supine on the operative table. Spinal anesthetic was then administered, dosed per the anesthesia without apparent complication. Examination under anesthesia was then performed. The patient was 5-7 degrees shy of full extension. He had 95 degrees of flexion. Medial collateral ligament, lateral ligament, posterior cruciate ligaments were stable. Tourniquet was then placed high on the right upper thigh well-padded in preparation for surgery. The patient's right lower extremity than prepped and draped in usual sterile fashion. Standard surgical pause undertaken to ensure that we were operating on the correct site and that appropriate preoperative antibiotics were given. All staff in the room were in agreement and we proceeded. The outlines of the patella were marked with a surgical pen. A planned 12 cm vertical incision centered over the patella was marked with a surgical pen. The leg was then exsanguinated with an Esmarch dressing. The knee was flexed and tourniquet inflated to 250 mmHg. Total tourniquet time for the procedure was 48 minutes. Incision was then made with a 10 blade scalpel. Dissection carried down sharply overlying fascia. Great care was taken to minimize the skin flaps. The knee was then exposed using a standard medial parapatellar approach. A small cuff of quadriceps tendon was then left for suturing. He was in quite a bit of varus preoperatively. A standard medial release was then made. Superficial medial collateral ligament dissected off the bone of the posterior aspect of the proximal tibia. The medial meniscus was then excised as well. The lateral meniscus was also released anteriorly. The leg was then externally rotated. The patella was everted. The knee was flexed. The retractors were then placed to protect the collateral ligaments. I then proceeded to remove the infrapatellar fat pad. It was excised sharply tangentially with fibers of the patellar tendon. I then proceeded to remove the peripheral osteophytes. This was done with a rongeur. I then proceeded with the distal femoral resection. He did have a small flexion contracture. A planned 11 mm resection was then done. The femoral canal was then entered in the midline. The femur approximately 10 mm anterior to the origin of the posterior cruciate ligament. The star was then advanced down the center of the femur and placed intramedullary. Based on the preoperative radiographs, the angle between the anatomic and mechanical axis of the femur was approximately 4-5 degrees. The valgus angle of the distal femoral cutting guide was then set at 4 degrees for the right knee. The distal femoral cutting guide was then advanced over the intramedullary star. This was seated firmly against the femur. I then as mentioned planned to take 11 mm off the distal femur. The cutting block was then secured onto the femur with pins. The jig was then removed. The distal femoral cut was made through the slot of the block. The pins were then removed. The distal femoral cutting block was removed. The accuracy of the distal femoral cuts was checked with 2 flat bars. I then proceeded with femoral sizing. The posterior referencing sizing guide was held firmly against the resected distal surface of the femur. Posterior condyles were resting on the posterior plane of the guide. The sizing stylus was then placed on the anterior femur. The size was measured to a size 9. I then assessed for femoral rotation. Plan was for 3 degrees external rotation. Three degrees of external rotation was placed onto the jig. These holes were then marked. I then confirmed the rotation by 3 separate methods. This was done using epicondylar axis as well as Whitesides line and posterior referencing. It was deemed that the external rotation was proper. I then went forward with placing the femoral cutting block. This was placed over the previously placed pin holes. The Bruno wing was then placed onto the anterior slots to ensure that we would not notch the anterior femur with the anterior femoral cut. I then proceeded with the anterior femoral cut. This was flush with the anterior cortex of the femur. The posterior cuts were then made followed by the anterior chamfer cut, then the posterior chamfer cut. The cutting block was then removed. Throughout the resection, the collateral ligaments were protected with retractors. I then placed a trial size 9 femur. It fit very nice medial-lateral and fit flush with the distal end of the femur. The drill holes were then made. I then proceeded with the tibial cut. I planned for a cruciate-retaining knee. The guide was placed in separate varus valgus and for slope. Height set for approximate 2 mm resection from the medial tibial plateau which was the lower side. the alignment and amount of resection. The cutting block was then pinned to the proximal tibia. The alignment star was removed. The proximal tibia was resected with a reciprocating saw. Again, this was done with retractors protecting the collateral ligaments as well as the posterior cruciate ligament. I then proceeded to evaluate the flexion extension gaps. A 10 mm block was then placed. The flexion and extension gaps were equal. I then proceeded with the resection of posterior osteophytes. He had very minimal posterior osteophytes. This was done using a curved osteotome. We resected the posterior osteophytes and posterior capsule stripping was done off the posterior aspect of the femur at this time. The osteophytes were then removed. I then proceeded with resection of the patella. The thickness of the patella was measured using the caliper. The thickness was 24 mm. The thickness of the anticipated patellar dome was taken into account. Resection was then performed and confirmed to be equal in 4 quadrants using a caliper. Approximately 14 mm of bone remained after resection. A 35 x 9 standard patellar trial was then placed. The holes drilled. Trial was then placed. I then proceeded with sizing tibial plate. A size F tibial plate fit very nicely. I then placed the trial femur in the tibial tray and the patellar button. A 10 mm trial tibial insert was also placed. The components fits very nicely. He had full extension and flexion. The extension and flexion gaps were equal and stable to both varus and valgus stress. The patella tracked appropriately. The tibial tray rotation was then marked with a Bovie. This was externally rotated properly. I then proceeded with the tibial preparation. First drilled the femoral holes, removed femoral component. The tibial tray was then set for proper external rotation as well as mediolateral placement onto the tibia. It was then pinned in place. I then proceeded with punching the keel. I then decided to proceed with cementing of all of our components. The knee was thoroughly irrigated with sterile saline solution via pulse lavage. The lateral geniculate artery was identified and cauterized. All blood was removed from the bone of the tibia femur and patella with pulse lavage. I then proceed with cementing. Two packs of antibiotic bone cement were prepared on the back table by the surgical scrub technician. I then proceed with cementing the tibia first. The cement was impacted into the keel as well as deeply seated into the bone. A second coat of cement was then placed. The tibia was then impacted into place. Excess cement was removed with Miroslava's and Joker's. I then proceeded with cementing the femoral component. The femoral component was also cemented using standard technique. Excess cement was removed. A 10 mm trial insert was then placed in the knee. It was brought into full extension with a constant axial load placed until the cement had hardened. The patellar component was then cemented. This was held firmly with a compressive device until the cement had dried. When the cement had dried, the knee was taken out of extension. All excess cement was removed from around the prosthesis. I then trialed the knee with a 10 mm insert. Flexion extension gaps were appropriate. I then trialed with a 12 mm insert. The flexion and extension gaps felt much better. The knee was stable with a 12 mm insert. It came into full extension. I decided to go forward with a 12 mm medial congruent cross-linked cruciate-retaining tibial insert. Polyethylene was then placed on the tibial tray and locked into place. The knee was then reduced. The knee was again further irrigated with sterile saline solution with antibiotic added. The tourniquet was then deflated. Total tourniquet time for the procedure was 48 minutes at 250 mmHg. Final components were Pablo Persona size 9 cruciate-retaining femoral component, size F tibial tray, a 12 mm medial congruent cruciate-retaining polyethylene insert, and a 35 x 9 mm patella. I then proceeded with closure. Again, the knee was thoroughly irrigated. The quadriceps tendon and the medial retinaculum were reapproximated with #2 Ethibond suture. The extensor mechanism was then closed with a running #2 Quill suture. Subcutaneous tissues were closed with 2-0 Vicryl interrupted suture. The skin was closed with a running 3-0 Quill suture. Dermabond was applied to the incision. Sterile compressive dressing was then applied. All sponge and needle counts were deemed correct prior to closure. The patient tolerated the procedure without apparent complication. He was transferred recovery room in stable condition. MMODL / IJN: [id number] /
[2021-03-30] MEDS: ASPIRIN 81 MG PO SCH (20:39)
[2021-03-30] MEDS: HYDROcodone/APAP 10-325MG 1 EACH TAB PO PRN (20:40)
[2021-03-30] MEDS ORDERED: SENNOSIDES-DOCUSATE SODIUM 1 EACH TAB PO SCH (21:00)
[2021-03-31] MEDS: LACTATED RINGERS 1,000 ML IV SCH ×2 (00:53→10:45)
[2021-03-31 04:15] VITALS: RESP 16
[2021-03-31] MEDS: HYDROcodone/APAP 10-325MG 1 EACH TAB PO PRN (05:51)
[2021-03-31 06:18] VITALS: BP 142/96; PULSE 91; TEMP 98
--- NOTE | 2021-03-31 07:22 | P.PN ---
Progress Note - Text Progress Note Date: 03/31/21 Postoperative day # 1 status post total knee arthroplasty, and adductor canal catheter placed for postoperative analgesia, currently at ropivacaine 0.2% 8 mL per hour and continuous infusion, visual analogue scale is 2/10, patient using oral pain medication for breakthrough pain. Assessment and plan= Acute postoperative pain, adductor canal catheter for pain control, pain is well controlled we'll continue the same management.
[2021-03-31 09:19] LABS: Basophils # (A) 0.02 X 10*3/uL (0.00-0.10); Basophils % (A) 0.2 %; Eosinophils # (A) 0 X 10*3/uL (0.04-0.35); Eosinophils % (A) 0 %; HCT 42.8 % (39.6-50.0); Lymphocytes # (A) 1.65 X 10*3/uL (0.90-5.00); Lymphocytes % (A) 14.4 %; MCHC 32.7 g/dL (32.0-37.0); MCV 91.6 fL (80.0-97.0); Mean Platelet Volume 11.7 fL (9.5-12.2); Monocytes # (A) 0.45 X 10*3/uL (0.20-1.00); Monocytes % (A) 3.9 %; Neutrophils # (A) 9.29 X 10*3/uL (1.80-7.70); Platelet Count 190 X 10*3/uL (140-440); RBC 4.67 X 10*6/uL (4.40-5.60); RDW 13.4 % (11.5-14.5); WBC 11.47 X 10*3/uL (4.50-10.00)
[2021-03-31] MEDS: ASPIRIN 81 MG PO SCH (10:23)
[2021-03-31] MEDS ORDERED: MULTIVITAMINS, THERA 1 EACH TAB PO SCH (12:00)
--- NOTE | 2021-03-31 13:46 | P.CONS ---
History of Present Illness - Reason for Consult Consult date: 03/31/21 Medical management - History of Present Illness HISTORY OF PRESENT ILLNESS This is an 80-year-old male patient of Dr. Adames with past medical history of chronic back pain, coronary artery disease, hypertension, hyperlipidemia, benign prostatic hypertrophy, shingles, carotid artery disease with 70% on the left and 65% on the right. History of acute MA in 2016 status post angioplasty and stent placement of the circumflex with previous angioplasty of the RCA. Patient has been brought in the hospital under the care of Dr. Heart status post right total knee arthroplasty. Patient has adductor canal catheter for pain control. Patient states that he is doing very well with physical therapy. He is anticipating discharge home today. [facility] home care has been arranged by pillowcase cleaner. Medication reconciliation has been reviewed. REVIEW OF SYSTEMS Constitutional: No fever, no chills, no night sweats. No weight change. No weakness, fatigue or lethargy. No daytime sleepiness. EENT: No headache. No blurred vision or double vision, no loss of vision. No loss of Hearing, no ringing in the ears, no dizziness. No nasal drainage or congestion. No epistaxis. No sore throat. Lungs: No shortness of breath, cough, no sputum production. No wheezing. Cardiovascular: No chest pain, no lower extremity edema. No palpitations. No paroxysmal nocturnal dyspnea. No orthopnea. No lightheadedness or dizziness. No syncopal episodes. Abdominal: No abdominal pain. No nausea, vomiting. No diarrhea. No constipation. No bloody or tarry stools.. No loss of appetite. Genitourinary: No dysuria, increased frequency, urgency. No urinary retention. Musculoskeletal: No myalgias. No muscle weakness, no gait dysfunction, no frequent falls. No back pain. No neck pain. Right knee discomfort. Integumentary: No wounds, no lesions. No rash or pruritus. No unusual bruising. No change in hair or nails. Neurologic: No aphasia. No facial droop. No change in mentation. No head injury. No headache. No paralysis. No paresthesia. Psychiatric: No depression. No anxiety. No mood swings. Endocrine: No abnormal blood sugars. No weight change. No excessive sweating or thirst. No cold intolerance. PHYSICAL EXAMINATION Gen: This is an 80-year-old male. He is resting in bed and appears to be comfortable and in no acute distress. HEENT: Head is atraumatic, normocephalic. Pupils equal, round. Sclerae is anicteric. No nystagmus. NECK: Supple. No JVD. No lymphadenopathy. No thyromegaly. LUNGS: Clear to auscultation. No wheezes or rhonchi. No intercostal retractions. HEART: Regular rate and rhythm. Systolic murmur. ABDOMEN: Soft. Bowel sounds are present. No masses. No tenderness. EXTREMITIES: No pedal edema. No calf tenderness. Small dressing in place to the right knee. NEUROLOGICAL: Patient is awake, alert and oriented x3. Cranial nerves 2 through 12 are grossly intact. ASSESSMENT AND PLAN 1. Osteoarthritis status post right total knee arthroplasty. Continue PT, pain control per orthopedics. Continue incentive spirometry to reduce incidence of atelectasis and hospital-acquired pneumonia. Continue DVT prophylaxis with aspirin 81 mg twice daily for 1 month. 2. History of Carotid artery disease, 70% left, 65% right. Consult with vascular surgery. 3. Hypertension. Continue Lopressor 25 mg twice daily and Cozaar 100 mg daily. 4. Hyperlipidemia. Continue Lipitor 80 mg at bedtime. 5. History of coronary artery disease with previous MA and stenting. Continue aspirin 81 mg daily, Lipitor 80 mg daily, Lopressor 25 mg twice daily. 6. History of shingles. 7. Benign prostatic hypertrophy. Continue tamsulosin 0.4 mg daily, terazosin 5 mg at bedtime. 8. DVT prophylaxis. Aspirin Discharge plan: home with [facility]. Impression and plan of care have been directed as dictated by the signing physician. Minerva Amador nurse practitioner acting as scribe for signing physician. Past Medical History Past Medical History: Coronary Artery Disease (CAD), Heart Failure, GERD/Reflux, Hyperlipidemia, Hypertension, Myocardial Infarction (MA), Musculoskeletal Disorder, Osteoarthritis (OA), Prostate Disorder, Thyroid Disorder Additional Past Medical History / Comment(s): Lumbar disc disease, HERNIATED DISC IN BACK. Diverticular disease with diverticulosis, BPH, MA X2, unknown da roseline. Last Myocardial Infarction Date:: UNK History of Any Multi-Drug Resistant Organisms: None Reported Past Surgical History: Adenoidectomy, Heart Catheterization With Stent, Joint Replacement, Tonsillectomy Additional Past Surgical History / Comment(s): LEFT KNEE REPLACMENT. Colonoscopy with polypectomy, epidural steroid injections. Past Anesthesia/Blood Transfusion Reactions: No Reported Reaction Date of Last Stent Placement:: UNK Past Psychological History: No Psychological Hx Reported Smoking Status: Former smoker Past Alcohol Use History: Rare Additional Past Alcohol Use History / Comment(s): Quit smoking in 1966. Past Drug Use History: None Reported - Past Family History Sister(s) Family Medical History: Cancer Additional Family Medical History / Comment(s): Pancreatic cancer. Father History Unknown: Yes Family Medical History: Cancer Mother History Unknown: Yes Family Medical History: Congestive Heart Failure (CHF) Additional Family Medical History / Comment(s): AT AGE 94. Medications and Allergies Home Medications Medication Instructions Recorded Confirmed Type Metoprolol Tartrate 25 mg PO BID 06/02/15 03/30/21 History Terazosin HCl 5 mg PO HS 06/02/15 03/30/21 History Nitroglycerin Sl Tabs [Nitrostat] 0.4 mg SUBLINGUAL Q5M PRN #25 tab 06/04/15 03/30/21 Rx Aspirin 81 mg PO DAILY 09/19/15 03/30/21 History Hydrocodone/Acetaminophen [[place] 1 tab PO Q12H PRN 03/20/20 03/30/21 History 5-325] Losartan Potassium [Cozaar] 100 mg PO HS 03/20/20 03/30/21 History Prednisolone Acetate/Pf 1 drop BOTH EYES MOWEFR 03/20/20 03/30/21 History [Prednisolone Acet 1% Eye Drop] Tamsulosin [Flomax] 0.4 mg PO DAILY 03/20/20 03/30/21 History valACYclovir [Valtrex] 500 mg PO DAILY 03/20/20 03/30/21 History Atorvastatin [Lipitor] 80 mg PO HS tab 03/21/20 03/30/21 Rx Aspirin [Adult Low Dose Aspirin EC] 81 mg PO BID #60 tab 03/30/21 Rx Docusate [Colace] 100 mg PO BID #60 capsule 03/30/21 Rx HYDROcodone/APAP 7.5-325MG [[place] 1 - 2 each PO Q6HR PRN #42 tab 03/30/21 Rx 7.5-325] Allergies Allergy/AdvReac Type Severity Reaction Status Date / Time No Known Allergies Allergy Verified 03/30/21 11:22 Physical Exam Vitals: Vital Signs Temp Pulse Pulse Pulse Resp BP BP 03/31/21 06:17 98.0 F 91 16 142/96 03/31/21 02:00 97.8 F 72 16 142/78 03/30/21 21:39 97.4 F L 92 17 146/77 03/30/21 16:43 63 18 03/30/21 16:38 96.4 F L 63 18 162/88 03/30/21 15:55 55 L 16 142/80 03/30/21 15:40 61 16 139/75 03/30/21 15:25 57 L 16 139/80 03/30/21 15:10 59 L 16 135/75 03/30/21 14:55 55 L 16 135/73 03/30/21 14:40 50 L 16 134/66 03/30/21 14:25 97.1 F L 60 16 124/65 03/30/21 12:23 70 18 113/65 03/30/21 11:32 97.2 F L 79 18 139/75 Pulse Ox 03/31/21 06:17 93 L 03/31/21 02:00 94 L 03/30/21 21:39 97 03/30/21 16:43 03/30/21 16:38 97 03/30/21 15:55 98 03/30/21 15:40 97 03/30/21 15:25 98 03/30/21 15:10 98 03/30/21 14:55 98 03/30/21 14:40 99 03/30/21 14:25 98 03/30/21 12:23 97 03/30/21 11:32 97 Intake and Output 03/30/21 03/31/21 03/31/21 22:59 06:59 14:59 Intake Total 400 1300 Output Total 900 Balance 400 400 Intake: IV 200 Intake, IV Titration 200 1300 Amount Lactated Ringers 1,000 ml 200 1100 @ 100 mls/hr IV .Q10H ROSEANNA Rx#:[id number] ceFAZolin 2 gm In Sodium 200 Chloride 0.9% 50 ml @ 100 mls/hr IVPB Q8H ROSEANNA Rx#: [id number] Output: Urine 900 Uretheral ([place]) 900 Other: Weight 93.5 kg Results CBC & Chem 7: 03/31/21 05:53 03/30/21 11:40 Labs: Abnormal Lab Results - Last 24 Hours (Table) 03/30/21 03/31/21 Range/Units 11:40 05:53 WBC 11.47 H (4.50-10.00) X 10*3/uL Immature Gran # 0.06 H (0.00-0.04) X 10*3/uL Neutrophils # 9.29 H (1.80-7.70) X 10*3/uL Eosinophils # 0 L (0.04-0.35) X 10*3/uL Sodium 132 L (137-145) mmol/L BUN 23 H (9-20) mg/dL Glucose 103 H (74-99) mg/dL
--- NOTE | 2021-03-31 14:54 | P.DS ---
Providers Expected date of discharge: 03/31/21 Attending physician: Antione Heart Consults: 03/30/21 12:43 Consult Physician Routine Consulting Provider: Armen Adames Reason/Comments: post op medical management Do you want consulting provider notified?: Yes Primary care physician: Armen Adames - Discharge Diagnosis(es) (1) Osteoarthritis of right knee Patient was admitted to the OR on 03/30/21 to undergo a right total knee arthroplasty. She had failed conservative measures as an outpatient and desired to proceed with elective surgery after given informed consent. She underwent the above procedure which she tolerated well without complication. Postoperative hospital course has remained without complication. On day of discharge she is afebrile, vital signs stable, labs within acceptable ranges, tolerating by mouth meds and diet, voiding without difficulty, positive flatus, denies abdominal pain or calf pain, pain is controlled on oral pain medication and has no new complaints. Wound is benign, neurovascular status is intact, calf is soft and nontender, abdomen soft and nontender. Review of systems is negative for numbness, tingling, fever, chills, chest pain, shortness of breath, nausea, vomiting, dizziness, headaches, slurred speech or other. Status: Acute Priority: Medium Procedures: Patient was admitted to the OR on 03/30/21 to undergo a right total knee arthroplasty. She had failed conservative measures as an outpatient and desired to proceed with elective surgery after given informed consent. She underwent the above procedure which she tolerated well without complication. Postoperative hospital course has remained without complication. On day of discharge she is afebrile, vital signs stable, labs within acceptable ranges, tolerating by mouth meds and diet, voiding without difficulty, positive flatus, denies abdominal pain or calf pain, pain is controlled on oral pain medication and has no new complaints. Wound is benign, neurovascular status is intact, calf is soft and nontender, abdomen soft and nontender. Review of systems is negative for numbness, tingling, fever, chills, chest pain, shortness of breath, nausea, vomiting, dizziness, headaches, slurred speech or other. Patient Condition at Discharge: Good Plan - Discharge Summary Discharge Rx Participant: No New Discharge Prescriptions: New Aspirin [Adult Low Dose Aspirin EC] 81 mg PO BID #60 tab Docusate [Colace] 100 mg PO BID #60 capsule HYDROcodone/APAP 7.5-325MG [[place] 7.5-325] 1 - 2 each PO Q6HR PRN #42 tab PRN Reason: Pain No Action Terazosin HCl 5 mg PO HS Metoprolol Tartrate 25 mg PO BID Nitroglycerin Sl Tabs [Nitrostat] 0.4 mg SUBLINGUAL Q5M PRN #25 tab PRN Reason: Chest Pain Aspirin 81 mg PO DAILY Hydrocodone/Acetaminophen [[place] 5-325] 1 tab PO Q12H PRN PRN Reason: Pain Losartan Potassium [Cozaar] 100 mg PO HS valACYclovir [Valtrex] 500 mg PO DAILY Prednisolone Acetate/Pf [Prednisolone Acet 1% Eye Drop] 1 drop BOTH EYES MOWEFR Tamsulosin [Flomax] 0.4 mg PO DAILY Atorvastatin [Lipitor] 80 mg PO HS tab Discharge Medication List Metoprolol Tartrate 25 mg PO BID 06/02/15 [History] Terazosin HCl 5 mg PO HS 06/02/15 [History] Nitroglycerin Sl Tabs [Nitrostat] 0.4 mg SUBLINGUAL Q5M PRN #25 tab 06/04/15 [Rx] Aspirin 81 mg PO DAILY 09/19/15 [History] Hydrocodone/Acetaminophen [[place] 5-325] 1 tab PO Q12H PRN 03/20/20 [History] Losartan Potassium [Cozaar] 100 mg PO HS 03/20/20 [History] Prednisolone Acetate/Pf [Prednisolone Acet 1% Eye Drop] 1 drop BOTH EYES MOWEFR 03/20/20 [History] Tamsulosin [Flomax] 0.4 mg PO DAILY 03/20/20 [History] valACYclovir [Valtrex] 500 mg PO DAILY 03/20/20 [History] Atorvastatin [Lipitor] 80 mg PO HS tab 03/21/20 [Rx] Aspirin [Adult Low Dose Aspirin EC] 81 mg PO BID #60 tab 03/30/21 [Rx] Docusate [Colace] 100 mg PO BID #60 capsule 03/30/21 [Rx] HYDROcodone/APAP 7.5-325MG [[place] 7.5-325] 1 - 2 each PO Q6HR PRN #42 tab 03/30/21 [Rx] Follow up Appointment(s)/Referral(s): Armen Adames MD [Primary Care Provider] - 04/07/21 8:30 am [facility], [NON-STAFF] - ([facility] will call you to schedule your in home physical therapy visits. ) Antione Heart MD [STAFF PHYSICIAN] - 04/17/21 1:45 pm Patient Instructions/Handouts: *Surgery [facility] - On-Q Pain Pump Discharge Instructions, Knee Replacement (DC) Activity/Diet/Wound Care/Special Instructions: Keep wound clean and dry Take meds as directed Follow-up with Dr. Heart in office Weight bear as tolerated May shower in 3 days if no bleeding Discharge Disposition: HOME WITH HOME HEALTH SERVICES
== END 2021-03-31 11:37 | disposition home health service (06) ==
LOC: OR 11:04 → 4SSUR 16:03 → OR 03-31 11:37
PROVIDERS: ATTEND Orthopaedic Surgery Sports Medicine
DX: M17.11 Unilateral primary osteoarthritis, right knee (principal); M25.761 Osteophyte, right knee; I25.10 Atherosclerotic heart disease of native coronary artery without angina pectoris; I11.9 Hypertensive heart disease without heart failure; E78.00 Pure hypercholesterolemia, unspecified; E78.5 Hyperlipidemia, unspecified; H91.90 Unspecified hearing loss, unspecified ear; R26.81 Unsteadiness on feet; J44.9 Chronic obstructive pulmonary disease, unspecified; Z96.652 Presence of left artificial knee joint; Z82.49 Family history of ischemic heart disease and other diseases of the circulatory system; Z87.891 Personal history of nicotine dependence; I25.2 Old myocardial infarction; Z72.0 Tobacco use; Z79.82 Long term (current) use of aspirin; Z79.899 Other long term (current) drug therapy; Z88.8 Allergy status to other drugs, medicaments and biological substances
CPT/HCPCS: 97161; 64999; 64448; 76942; 80053; 85025; 88300; 87635; 73560; 27447; C1776; C1713; J2250; J1200; J1100; J0690 ×3; J2405; J3010; J2795 ×2; J2704; J1170

== ENCOUNTER 2022-10-30 14:50 | Emergency (ER) | payer MEDICARE, BC ==
[2022-10-30 15:05] VITALS: TEMP 97.9
--- NOTE | 2022-10-30 15:40 | ED ---
General Adult HPI - General Chief complaint: Chest Pain Stated complaint: rib pain Time Seen by Provider: 10/30/22 15:06 Source: patient, EMS Mode of arrival: EMS Limitations: no limitations - History of Present Illness Initial comments: This 82-year-old male presents with a complaint of some pain in his right lower abdomen and right flank. It radiated up into his chest as well. He states that it started very suddenly at 2 PM today. It has subsequently resolved. He states that it was very severe when it occurred. He denies any nausea, vomiting, diarrhea, fevers, or chills. He does complain of constipation and normally will take MiraLAX but has not been doing so recently. He denies any shortness of breath. He does have a history of cardiac disease with 4 previous cardiac stents. He denies any previous similar incidents like this. He denies any vascular history or known abdominal aortic aneurysms. He denies any hematuria, dysuria, or frequency of urination. He does state that he has an enlarged prostate and sometimes has difficulty with urination. He denies any history of kidney stones. No other complaints or modifying factors. - Related Data Home Medications Medication Instructions Recorded Confirmed Metoprolol Tartrate 25 mg PO BID 06/02/15 03/30/21 Terazosin HCl 5 mg PO HS 06/02/15 03/30/21 Aspirin 81 mg PO DAILY 09/19/15 03/30/21 Hydrocodone/Acetaminophen [[place] 1 tab PO Q12H PRN 03/20/20 03/30/21 5-325] Losartan Potassium [Cozaar] 100 mg PO HS 03/20/20 03/30/21 Prednisolone Acetate/Pf 1 drop BOTH EYES MOWEFR 03/20/20 03/30/21 [Prednisolone Acet 1% Eye Drop] Tamsulosin [Flomax] 0.4 mg PO DAILY 03/20/20 03/30/21 valACYclovir HCL [Valtrex] 500 mg PO DAILY 03/20/20 03/30/21 Previous Rx's Medication Instructions Recorded Nitroglycerin Sl Tabs [Nitrostat] 0.4 mg SUBLINGUAL Q5M PRN #25 tab 06/04/15 Atorvastatin [Lipitor] 80 mg PO HS tab 03/21/20 Aspirin [Adult Low Dose Aspirin EC] 81 mg PO BID #60 tab 11/04/21 Docusate [Colace] 100 mg PO BID #60 capsule 03/30/21 HYDROcodone/APAP 7.5-325MG [[facility] [place] 1 - 2 each PO Q6HR PRN #42 tab 03/30/21 7.5-325] Allergies Allergy/AdvReac Type Severity Reaction Status Date / Time No Known Allergies Allergy Verified 03/30/21 11:22 Review of Systems ROS Statement: Those systems with pertinent positive or pertinent negative responses have been documented in the HPI. ROS Other: All systems not noted in ROS Statement are negative. Past Medical History Past Medical History: Coronary Artery Disease (CAD), Heart Failure, GERD/Reflux, Hyperlipidemia, Hypertension, Myocardial Infarction (VT), Musculoskeletal Disorder, Osteoarthritis (OA), Prostate Disorder, Thyroid Disorder Additional Past Medical History / Comment(s): Lumbar disc disease, HERNIATED DISC IN BACK. Diverticular disease with diverticulosis, BPH, VT X2, unknown dates. Last Myocardial Infarction Date:: UNK History of Any Multi-Drug Resistant Organisms: None Reported Past Surgical History: Adenoidectomy, Heart Catheterization With Stent, Joint Replacement, Tonsillectomy Additional Past Surgical History / Comment(s): LEFT KNEE REPLACMENT. Colonoscopy with polypectomy, epidural steroid injections. Past Anesthesia/Blood Transfusion Reactions: No Reported Reaction Date of Last Stent Placement:: UNK Past Psychological History: No Psychological Hx Reported Smoking Status: Former smoker Past Alcohol Use History: Rare Past Drug Use History: None Reported - Past Family History Sister(s) Family Medical History: Cancer Additional Family Medical History / Comment(s): Pancreatic cancer. Father History Unknown: Yes Family Medical History: Cancer Mother History Unknown: Yes Family Medical History: Congestive Heart Failure (CHF) Additional Family Medical History / Comment(s): AT AGE 94. General Exam - General Exam Comments Initial Comments: GENERAL: The patient is well nourished and well hydrated. VITAL SIGNS: Heart rate, blood pressure, respiratory rate reviewed as recorded in nurse's notes. EYES: Pupils are round and reactive. Extraocular movements are intact. No conjunctival / lid redness or swelling. ENT: No external evidence of injury, swelling, or ecchymosis. Airway is patent. Throat is clear. NECK: Nontender. No swelling or evidence of injury. No subcutaneous emphysema. T rachea is midline. No thyroid mass. HEART: Regular rate and rhythm. Good peripheral pulses. LUNGS/CHEST: Breath sounds clear and equal bilaterally. No rales, rhonchi, or wheezes. No ecchymosis, subcutaneous emphysema, or tenderness. ABDOMEN: Abdomen soft without tenderness. No palpable masses or organomegaly. No peritoneal signs. No abdominal wall swelling or ecchymosis. EXTREMITIES: No extremity tenderness. Normal muscle tone and function. No thoracolumbar tenderness. NEUROLOGIC: Sensation is grossly intact. Cranial nerve exam reveals face is symmetrical, tongue is midline, speech is clear. SKIN: No abrasions or ecchymosis is noted. No induration or masses noted. PSYCHIATRIC: Alert and oriented. Appropriate behavior and judgment. Limitations: no limitations Course Vital Signs 10/30/22 10/30/22 10/30/22 14:55 16:21 17:58 Temperature 97.9 F Pulse Rate 63 64 72 Respiratory 20 18 18 Rate Blood Pressure 155/80 157/91 167/89 O2 Sat by Pulse 95 97 95 Oximetry Medical Decision Making - Medical Decision Making The patient was seen and examined. All diagnostics were reviewed. The EKG is completed and does show a normal sinus rhythm at a rate of 63. There is evidence of suspected left bundle branch block with associated ST-T wave changes identified. The QRS is widened at 146, and QTc interval is 439 per my interpretation. There is some T-wave inversions in leads V5 and V6 as well as the inferior leads. IV is established. He's not Any pain initially upon evaluation and does not require any pain medication.The patient had a computed tomography scan of his chest abdomen and pelvis. There is no evidence of any aortic dissection or ruptured abdominal aortic aneurysm. No acute processes noted per radiologist. Upon reevaluation, the patient states that all of his symptomatology has resolved and he would like to be discharged home. The exact cause of his symptoms is not definitively determined. It potentially could be related to some constipation. Nevertheless his symptoms have resolved. It is felt as though he stable for discharge home. Return parameters are discussed. Close follow-up recommended. Was pt. sent in by a medical professional or institution (, PA, [employer], urgent care, hospital, or [facility]...) When possible be specific @ -[No] Did you speak to anyone other than the patient for history (EMS, parent, family, police, friend...)? What history was obtained from this source @ -[No] Did you review nursing and triage notes (agree or disagree)? Why? @ -[I reviewed and agree with nursing and triage notes] Were old charts reviewed (outside hosp., previous admission, EMS record, old EKG, old radiological studies, urgent care reports/EKG's, [facility] records)? Report findings @ -old records are reviewed. Differential Diagnosis (chest pain, altered mental status, abdominal pain women, abdominal pain men, vaginal bleeding, weakness, fever, dyspnea, syncope, headache, dizziness, GI bleed, back pain, seizure, CVA, palpatations, mental health, musculoskeletal)? @ -[not applicable] EKG interpreted by me (3pts min.). @ -[As above] X-rays interpreted by me (1pt min.). @ -[None done] CT interpreted by me (1pt min.). @ -CT is interpreted by radiologist. U/S interpreted by me (1pt. min.). @ -[None done] What testing was considered but not performed or refused? (CT, X-rays, U/S, labs)? Why? @ -[None] What meds were considered but not given or refused? Why? @ -pain medications were considered but not given as patient is not in any pain initially or on recheck. Did you discuss the management of the patient with other professionals (professionals i.e. , PA, [employer], lab, RT, psych nurse, social services coordinator, mangle feeder, teacher, infantry weapons officer, immigration case worker)? Give summary @ -[No] Was smoking cessation discussed for >3mins.? @ -[No] Was critical care preformed (if so, how long)? @ -[No] Were there social determinants of health that impacted care today? How? (Homelessness, low income, unemployed, alcoholism, drug addiction, transportat ion, low edu. Level, literacy, decrease access to med. care, longterm, rehab)? @ -[No] Was there de-escalation of care discussed even if they declined (Discuss DNR or withdrawal of care, Hospice)? DNR status @ -[No] What co-morbidities impacted this encounter? (DM, HTN, Smoking, COPD, CAD, Cancer, CVA, ARF, Chemo, Hep., AIDS, mental health diagnosis, sleep apnea, morbid obesity)? @ -hypercholesterolemia Was patient admitted / discharged? Hospital course, mention meds given and route, prescriptions, significant lab abnormalities, going to OR and other pertinent info. @ -discharged home Undiagnosed new problem with uncertain prognosis? @ -[No] Drug Therapy requiring intensive monitoring for toxicity (Heparin, Nitro, Insulin, Cardizem)? @ -[No] Were any procedures done? @ -[No] Diagnosis/symptom? @ -as below Acute, or Chronic, or Acute on Chronic? @ acute Uncomplicated (without systemic symptoms) or Complicated (systemic symptoms)? @ -uncomplicated Side effects of treatment? @ -[No] Exacerbation, Progression, or Severe Exacerbation? @ -[No] Poses a threat to life or bodily function? How? (Chest pain, USA, VT, pneumonia, PE, COPD, DKA, ARF, appy, cholecystitis, CVA, Diverticulitis, Homicidal, Suicidal, threat to staff... and all critical care pts) @ -[No] - Lab Data Result diagrams: 10/30/22 15:29 10/30/22 15:29 Lab Results 10/30/22 10/30/22 10/30/22 Range/Units 15:29 15:29 15:29 WBC 5.8 (3.8-10.6) k/uL RBC 4.73 (4.30-5.90) m/uL Hgb 13.8 (13.0-17.5) gm/dL Hct 39.8 (39.0-53.0) % MCV 84.1 (80.0-100.0) fL MCH 29.2 (25.0-35.0) pg MCHC 34.7 (31.0-37.0) g/dL RDW 14.1 (11.5-15.5) % Plt Count 126 L (150-450) k/uL MPV 8.8 Neutrophils % 61 % Lymphocytes % 27 % Monocytes % 6 % Eosinophils % 4 % Basophils % 0 % Neutrophils # 3.6 (1.3-7.7) k/uL Lymphocytes # 1.6 (1.0-4.8) k/uL Monocytes # 0.4 (0-1.0) k/uL Eosinophils # 0.2 (0-0.7) k/uL Basophils # 0.0 (0-0.2) k/uL PT (9.0-12.0) sec INR (<1.2) APTT (22.0-30.0) sec Sodium 134 L (137-145) mmol/L Potassium 4.0 (3.5-5.1) mmol/L Chloride 102 (98-107) mmol/L Carbon Dioxide 23 (22-30) mmol/L Anion Gap 9 mmol/L BUN 28 H (9-20) mg/dL Creatinine 0.98 (0.66-1.25) mg/dL Est GFR (CKD-EPI)AfAm 82 (>60 ml/min/1.73 sqM) Est GFR (CKD-EPI)NonAf 71 (>60 ml/min/1.73 sqM) Glucose 109 H (74-99) mg/dL Calcium 9.0 (8.4-10.2) mg/dL Total Bilirubin 0.4 (0.2-1.3) mg/dL AST 21 (17-59) U/L ALT 18 (4-49) U/L Alkaline Phosphatase 74 (38-126) U/L Troponin I <0.012 (0.000-0.034) ng/mL Total Protein 7.0 (6.3-8.2) g/dL Albumin 4.0 (3.5-5.0) g/dL Amylase 77 (30-110) U/L Lipase 91 (23-300) U/L /11/16 Range/Units 16:14 WBC (3.8-10.6) k/uL RBC (4.30-5.90) m/uL Hgb (13.0-17.5) gm/dL Hct (39.0-53.0) % MCV (80.0-100.0) fL MCH (25.0-35.0) pg MCHC (31.0-37.0) g/dL RDW (11.5-15.5) % Plt Count (150-450) k/uL MPV Neutrophils % % Lymphocytes % % Monocytes % % Eosinophils % % Basophils % % Neutrophils # (1.3-7.7) k/uL Lymphocytes # (1.0-4.8) k/uL Monocytes # (0-1.0) k/uL Eosinophils # (0-0.7) k/uL Basophils # (0-0.2) k/uL PT 10.2 (9.0-12.0) sec INR 1.0 (<1.2) APTT 22.9 (22.0-30.0) sec Sodium (137-145) mmol/L Potassium (3.5-5.1) mmol/L Chloride (98-107) mmol/L Carbon Dioxide (22-30) mmol/L Anion Gap mmol/L BUN (9-20) mg/dL Creatinine (0.66-1.25) mg/dL Est GFR (CKD-EPI)AfAm (>60 ml/min/1.73 sqM) Est GFR (CKD-EPI)NonAf (>60 ml/min/1.73 sqM) Glucose (74-99) mg/dL Calcium (8.4-10.2) mg/dL Total Bilirubin (0.2-1.3) mg/dL AST (17-59) U/L ALT (4-49) U/L Alkaline Phosphatase (38-126) U/L Troponin I (0.000-0.034) ng/mL Total Protein (6.3-8.2) g/dL Albumin (3.5-5.0) g/dL Amylase (30-110) U/L Lipase (23-300) U/L Disposition Clinical Impression: Acute abdominal pain, Chest pain, Constipation Disposition: HOME SELF-CARE Instructions (If sedation given, give patient instructions): Chest Pain (ED), Constipation (ED), Abdominal Pain (ED) Additional Instructions: Please take your MiraLAX 1-2 times per day. Please return if your symptoms do reoccur or worsen. Is patient prescribed a controlled substance at d/c from ED?: No Referrals: Armen Adames MD [Primary Care Provider] - 1-2 days Time of Disposition: 17:42
[2022-10-30 15:52] LABS: Basophils % (A) 0 %; Eosinophils # (A) 0.2 k/uL (0-0.7); Eosinophils % (A) 4 %; HCT 39.8 % (39.0-53.0); HGB 13.8 gm/dL (13.0-17.5); Lymphocytes # (A) 1.6 k/uL (1.0-4.8); Lymphocytes % (A) 27 %; MCH 29.2 pg (25.0-35.0); MCHC 34.7 g/dL (31.0-37.0); MCV 84.1 fL (80.0-100.0); Mean Platelet Volume 8.8; Monocytes # (A) 0.4 k/uL (0-1.0); Monocytes % (A) 6 %; Neutrophils # (A) 3.6 k/uL (1.3-7.7); Neutrophils % (A) 61 %; Platelet Count 126 k/uL (150-450); RBC 4.73 m/uL (4.30-5.90); RDW 14.1 % (11.5-15.5); WBC 5.8 k/uL (3.8-10.6)
[2022-10-30 16:12] LABS: ALT 18 U/L (4-49); AST 21 U/L (17-59); African American GFR (CKD) 82 (>60 ml/min/1.73 sqM); Alkaline Phosphatase 74 U/L (38-126); Amylase 77 U/L (30-110); Anion Gap 9 mmol/L; Blood Urea Nitrogen 28 mg/dL (9-20); Carbon Dioxide 23 mmol/L (22-30); Chloride 102 mmol/L (98-107); Glucose 109 mg/dL (74-99); Lipase 91 U/L (23-300); Non-African American GFR(CKD) 71 (>60 ml/min/1.73 sqM); Sodium 134 mmol/L (137-145); Total Bilirubin 0.4 mg/dL (0.2-1.3)
[2022-10-30 16:22] VITALS: RESP 18
[2022-10-30 16:45] LABS: Partial Thromboplastin Time 22.9 sec (22.0-30.0); Prothrombin Time 10.2 sec (9.0-12.0)
--- NOTE | 2022-10-30 16:56 | CT ---
EXAMINATION TYPE: CT ChestAbdPelvis w con CT DLP: 1571.9 mGycm, Automated exposure control for dose reduction was used. DATE OF EXAM: 10/30/2022 4:39 PM COMPARISON: None. CLINICAL INDICATION:Male, 82 years old with history of chest and abdominal pain, right sided chest an d abdominal pain Technique: Multiple axial images of the chest, abdomen, and pelvis were obtained. Two-dimensional cor onal and sagittal reconstructions were obtained. Contrast used:100 mL of Isovue 300 with IV Contrast, Oral contrast used: without Oral Contrast Findings: CHEST: LUNGS/ PLEURA: No focal consolidation, pneumothorax or pleural effusion. Dependent atelectasis change s most proximal lung bases. AIRWAY: Patent and unremarkable. HEART: The heart is mildly enlarged for size. There is moderate to severe coronary artery calcificati ons. MEDIASTINUM: No gross evidence of adenopathy. VASCULATURE: No aortic aneurysm. MUSCULOSKELETAL: No acute osseous abnormalities. SOFT TISSUES/LYMPH NODES: Unremarkable. LOWER NECK: No significant findings. ABDOMEN: ABDOMEN LIVER: Appearing renal cysts. GALLBLADDER AND BILE DUCTS: Unremarkable. PANCREAS: Unremarkable. SPLEEN: Unremarkable. ADRENAL GLANDS: Unremarkable. KIDNEYS AND URETERS: No evidence of hydronephrosis or renal calculus. The ureters are unremarkable. Bilateral renal cysts. PELVIS BLADDER: Unremarkable REPRODUCTIVE: Prostate is enlarged in size measuring 6.1 cm in transverse dimension. ABDOMEN & PELVIS STOMACH AND BOWEL: No evidence of bowel obstruction. Colonic diverticula. The appendix is normal. Lar ge stool burden throughout the colon. PERITONEUM: No evidence of pneumoperitoneum or free fluid. VASCULATURE: Moderate atherosclerotic calcifications are present throughout the abdominal aorta and i ts branches. Retroaortic left renal vein. MUSCULOSKELETAL: No acute osseous abnormalities. Moderate disc degeneration changes are present throu ghout the thoracolumbar spine. Scoliosis changes levoscoliosis apex L3-L4. LYMPH NODES: No gross evidence for lymphadenopathy. SOFT TISSUE/ABDOMINAL WALL: Bilateral fat-containing inguinal hernias right greater than left. IMPRESSION: 1. No evidence for acute abdominal or thoracic process to explain the patient's right-sided pain. Th e appendix is normal. There is no obstructive uropathy. 2. Extensive colonic diverticula. 3. Prostatomegaly correlate with serum PSA. 4. Large stool burden throughout the colon.
[2022-10-30 17:59] VITALS: BP 167/89; PULSE 72
== END 2022-10-30 17:59 | disposition home or self-care (01) ==
LOC: EC 14:50
DX: R07.9 Chest pain, unspecified (principal); K59.00 Constipation, unspecified; R10.31 Right lower quadrant pain; I25.10 Atherosclerotic heart disease of native coronary artery without angina pectoris; I11.0 Hypertensive heart disease with heart failure; I50.9 Heart failure, unspecified; E78.00 Pure hypercholesterolemia, unspecified; I25.2 Old myocardial infarction; M19.90 Unspecified osteoarthritis, unspecified site; E07.9 Disorder of thyroid, unspecified; Z87.891 Personal history of nicotine dependence; Z79.82 Long term (current) use of aspirin; Z79.899 Other long term (current) drug therapy
CPT/HCPCS: 99285 ×2; 36415; 93005; 80053; 82150; 83690; 84484; 85025; 85610; 85730; 71260; 74177; Q9967

== ENCOUNTER 2022-11-12 16:25 | Inpatient (IN) | payer MEDICARE, BC ==
--- NOTE | 2022-11-12 16:34 | ED ---
Neuro HPI - General Stated Complaint: stroke symtoms Time Seen by Provider: 11/12/22 16:29 - History of Present Illness Is the patient presenting with stroke symptoms?: Yes Last Known Well Date: 11/12/22 Last Known Well Time: 15:45 Onset/Timin -: minutes(s) Initial Comments: This patient is an 82-year-old man who complains of having left sided weakness. The patient had been out shopping and then returned to his home. He was feeling well. He went to sit down on a bench and then noted that he had developed inability to move his left arm and leg. He states this resulted in him nearly falling off the bench. He was able to take out his phone and dial EMS who did find him with left-sided weakness. Patient denies headache. Denies sensory difficulty, no trouble with speech or swallowing. Patient denies history of bleeding or use of blood thinners other than aspirin 81 mg. Location: left arm, left leg History of same: No Place: home Severity: severe Quality: weak Improves With: none Worsens With: none On Anticoagulants: No Context: sudden onset Associated Symptoms: weakness Treatments Prior to Arrival: none - Related Data Home Medications: Home Medications Medication Instructions Recorded Confirmed Metoprolol Tartrate 25 mg PO BID 06/02/15 11/12/22 Terazosin HCl 5 mg PO HS 06/02/15 11/12/22 Aspirin 81 mg PO DAILY 09/19/15 11/12/22 Prednisolone Acetate/Pf 1 drop LEFT EYE DAILY 03/20/20 11/12/22 [Prednisolone Acet 1% Eye Drop] Tamsulosin [Flomax] 0.4 mg PO DAILY 03/20/20 11/12/22 Baclofen 5 - 10 mg PO BID PRN 11/12/22 11/12/22 Furosemide [Lasix] 40 mg PO DAILY 11/12/22 11/12/22 HYDROcodone/APAP 7.5-325MG [[place] 1 tab PO Q8H PRN 11/12/22 11/12/22 7.5-325] Losartan [Cozaar] 50 mg PO DAILY 11/12/22 11/12/22 Previous Rx's Medication Instructions Recorded Nitroglycerin Sl Tabs [Nitrostat] 0.4 mg SUBLINGUAL Q5M PRN #25 tab 06/04/15 Allergies/Adverse Reactions: Allergies Allergy/AdvReac Type Severity Reaction Status Date / Time No Known Allergies Allergy Verified 11/12/22 18:57 Review of Systems ROS Statement: Those systems with pertinent positive or pertinent negative responses have been documented in the HPI. ROS Other: All systems not noted in ROS Statement are negative. Constitutional: Denies: fever, chills Respiratory: Denies: cough, dyspnea Cardiovascular: Denies: chest pain, palpitations Gastrointestinal: Denies: abdominal pain, nausea, vomiting Genitourinary: Denies: dysuria Musculoskeletal: Denies: back pain Skin: Denies: rash Neurological: Denies: headache, weakness, numbness General Exam General appearance: alert, in no apparent distress Head exam: Present: atraumatic, normocephalic Eye exam: Present: normal appearance. Absent: scleral icterus, conjunctival injection ENT exam: Present: normal oropharynx Neck exam: Present: normal inspection Respiratory exam: Present: normal lung sounds bilaterally. Absent: respiratory distress, wheezes, rales, rhonchi, stridor Cardiovascular Exam: Present: regular rate, normal rhythm, normal heart sounds. Absent: systolic murmur, diastolic murmur, rubs, gallop GI/Abdominal exam: Present: soft. Absent: distended, tenderness, guarding, rebound, rigid Extremities exam: Present: normal inspection, normal capillary refill. Absent: pedal edema, calf tenderness Back exam: Present: normal inspection Neurological exam: Present: alert, oriented X3, CN II-XII intact, motor sensory deficit Skin exam: Present: warm, dry, intact, normal color. Absent: rash Stroke MDM - Lab Data Result diagrams: 11/19/22 06:37 11/19/22 06:37 Lab Results 11/12/22 11/12/22 11/12/22 Range/Units 16:21 16:21 16:21 WBC 8.2 (3.8-10.6) k/uL RBC 5.14 (4.30-5.90) m/uL Hgb 14.4 (13.0-17.5) gm/dL Hct 44.6 (39.0-53.0) % MCV 86.8 (80.0-100.0) fL MCH 28.1 (25.0-35.0) pg MCHC 32.4 (31.0-37.0) g/dL RDW 14.0 (11.5-15.5) % Plt Count 128 L (150-450) k/uL MPV 8.7 Neutrophils % 51 % Lymphocytes % 38 % Monocytes % 5 % Eosinophils % 4 % Basophils % 0 % Neutrophils # 4.2 (1.3-7.7) k/uL Lymphocytes # 3.1 (1.0-4.8) k/uL Monocytes # 0.4 (0-1.0) k/uL Eosinophils # 0.3 (0-0.7) k/uL Basophils # 0.0 (0-0.2) k/uL PT 9.8 (9.0-12.0) sec INR 0.9 (<1.2) APTT 20.9 L (22.0-30.0) sec Sodium 135 L (137-145) mmol/L Potassium 4.4 (3.5-5.1) mmol/L Chloride 105 (98-107) mmol/L Carbon Dioxide 20 L (22-30) mmol/L Anion Gap 10 mmol/L BUN 29 H (9-20) mg/dL Creatinine 1.11 (0.66-1.25) mg/dL Est GFR (CKD-EPI)AfAm 70 (>60 ml/min/1.73 sqM) Est GFR (CKD-EPI)NonAf 61 (>60 ml/min/1.73 sqM) Glucose 89 (74-99) mg/dL Calcium 9.1 (8.4-10.2) mg/dL Total Bilirubin 0.4 (0.2-1.3) mg/dL AST 21 (17-59) U/L ALT 19 (4-49) U/L Alkaline Phosphatase 73 (38-126) U/L Creatine Kinase 58 (55-170) U/L Troponin I (0.000-0.034) ng/mL Total Protein 7.3 (6.3-8.2) g/dL Albumin 4.1 (3.5-5.0) g/dL Triglycerides (0.00-149.00) mg/dL Cholesterol (0.00-200.00) mg/dL LDL Cholesterol, Calc (0.0-131.0) mg/dL VLDL Cholesterol, Calc (5.00-40.00) mg/dL HDL Cholesterol (40.00-60.00) mg/dL Cholesterol/HDL Ratio Ratio 11/12/22 11/12/22 Range/Units 16:21 16:21 WBC (3.8-10.6) k/uL RBC (4.30-5.90) m/uL Hgb (13.0-17.5) gm/dL Hct (39.0-53.0) % MCV (80.0-100.0) fL MCH (25.0-35.0) pg MCHC (31.0-37.0) g/dL RDW (11.5-15.5) % Plt Count (150-450) k/uL MPV Neutrophils % % Lymphocytes % % Monocytes % % Eosinophils % % Basophils % % Neutrophils # (1.3-7.7) k/uL Lymphocytes # (1.0-4.8) k/uL Monocytes # (0-1.0) k/uL Eosinophils # (0-0.7) k/uL Basophils # (0-0.2) k/uL PT (9.0-12.0) sec INR (<1.2) APTT (22.0-30.0) sec Sodium (137-145) mmol/L Potassium (3.5-5.1) mmol/L Chloride (98-107) mmol/L Carbon Dioxide (22-30) mmol/L Anion Gap mmol/L BUN (9-20) mg/dL Creatinine (0.66-1.25) mg/dL Est GFR (CKD-EPI)AfAm (>60 ml/min/1.73 sqM) Est GFR (CKD-EPI)NonAf (>60 ml/min/1.73 sqM) Glucose (74-99) mg/dL Calcium (8.4-10.2) mg/dL Total Bilirubin (0.2-1.3) mg/dL AST (17-59) U/L ALT (4-49) U/L Alkaline Phosphatase (38-126) U/L Creatine Kinase (55-170) U/L Troponin I <0.012 (0.000-0.034) ng/mL Total Protein (6.3-8.2) g/dL Albumin (3.5-5.0) g/dL Triglycerides 148.00 (0.00-149.00) mg/dL Cholesterol 206.00 H (0.00-200.00) mg/dL LDL Cholesterol, Calc 145.4 H (0.0-131.0) mg/dL VLDL Cholesterol, Calc 29.60 (5.00-40.00) mg/dL HDL Cholesterol 31.00 L (40.00-60.00) mg/dL Cholesterol/HDL Ratio 6.65 Ratio - NIH Stroke Scale 1a. Level of Consciousness: (0) alert 1b. LOC Questions: (0) answers correctly 1c. LOC Commands: (0) performs tasks correctly 2. Best Gaze: (0) normal 3. Visual: (0) no visual loss 4. Facial Palsy: (1) minor paralysis 5a. Motor Arm Left: (2) some gravity effort 5b. Motor Arm Right: (0) no drift 6a. Motor Leg Left: (2) some gravity effort 6b. Motor Leg Right: (0) no drift 7. Limb Ataxia: (2) present 2 limbs 8. Sensory: (0) normal 9. Best Language: (0) no aphasia 10. Dysarthria: (0) normal 11. Extinction/Inattention: (0) no abnormality - Medical Decision Making This patient is an 82-year-old man presenting with clinical picture consistent with acute ischemic stroke. The patient's workup started, he went for CT scan and CT angiography. I went to discuss possibility of TPA administration, and the patient had shown marked improvement, with an H score down to 1. The case discussed with neuro interventional team, and the patient will be admitted with further neurology workup. The patient had CT brain which I interpreted as negative for acute intracranial hemorrhage or bony injury. The patient had CT angiography that was interpreted by radiology. The patient had chest x-ray which I interpreted as being negative for acute infiltrate, pneumothorax, congestive heart failure Was pt. sent in by a medical professional or institution (, PA, MERCHANDISING TEAM LEAD, urgent care, hospital, or [facility]...) When possible be specific @ -[No] Did you speak to anyone other than the patient for history (EMS, parent, family, police, friend...)? What history was obtained from this source @ -[No] Did you review nursing and triage notes (agree or disagree)? Why? @ -[I reviewed and agree with nursing and triage notes] Were old charts reviewed (outside hosp., previous admission, EMS record, old EKG, old radiological studies, urgent care reports/EKG's, [facility] records)? Report findings @ -[No old charts were reviewed] Differential Diagnosis (chest pain, altered mental status, abdominal pain women, abdominal pain men, vaginal bleeding, weakness, fever, dyspnea, syncope, headache, dizziness, GI bleed, back pain, seizure, CVA, palpatations, mental health, musculoskeletal)? @ -[Differential CVA Ischemic stroke, hemorrhagic stroke, brain tumor, atypical migraine, Wernicke's encephalopathy, seizure, multiple sclerosis, meningitis, encephalitis, hypoglycemia, Guillain-[place], electrolytes disturbance, myasthenia gravis.... This is not meant to be an all-inclusive list EKG interpreted by me (3pts min.). @ -[As above] X-rays interpreted by me (1pt min.). @ -[I interpreted as above CT interpreted by me (1pt min.). @ -[I interpreted as above U/S interpreted by me (1pt. min.). @ -[None done] What testing was considered but not performed or refused? (CT, X-rays, U/S, labs)? Why? @ -[None] What meds were considered but not given or refused? Why? @ -[None] Did you discuss the management of the patient with other professionals (professionals i.e. , PA, MERCHANDISING TEAM LEAD, lab, RT, psych nurse, social media content manager, dragline engineer, teacher, public service officer, bottle caser)? Give summary @ -[Case is discussed with the neuro interventional list and also with the admitting physician Was smoking cessation discussed for >3mins.? @ -[No] Was critical care preformed (if so, how long)? @ -[Yes 35 minutes Were there social determinants of health that impacted care today? How? (Homelessness, low income, unemployed, alcoholism, drug addiction, transportation, low edu. Level, literacy, decrease access to med. care, retirement, rehab)? @ -[No] Was there de-escalation of care discussed even if they declined (Discuss DNR or withdrawal of care, Hospice)? DNR status @ -[No] What co-morbidities impacted this encounter? (DM, HTN, Smoking, COPD, CAD, Cancer, CVA, ARF, Chemo, Hep., AIDS, mental health diagnosis, sleep apnea, morbid obesity)? @ -[None] Was patient admitted / discharged? Hospital course, mention meds given and route, prescriptions, significant lab abnormalities, going to OR and other pertinent info. @ -[The patient will be admitted for further care and neurology consultation. Undiagnosed new problem with uncertain prognosis? @ -[No] Drug Therapy requiring intensive monitoring for toxicity (Heparin, Nitro, Insulin, Cardizem)? @ -[No] Were any procedures done? @ -[No] Diagnosis/symptom? @ -[Acute TIA Acute, or Chronic, or Acute on Chronic? @ -[default] Uncomplicated (without systemic symptoms) or Complicated (systemic symptoms)? @ -[Uncomplicated Side effects of treatment? @ -[No] Exacerbation, Progression, or Severe Exacerbation? @ -[No] Poses a threat to life or bodily function? How? (Chest pain, USA, NV, pneumonia, PE, COPD, DKA, ARF, appy, cholecystitis, CVA, Diverticulitis, Homicidal, Suicidal, threat to staff... and all critical care pts) @ -[Yes, in some cases TIA may indicate impending stroke with permanent neurologic disability/ - EKG Data -: EKG Interpreted by Me EKG shows normal: sinus rhythm (Rate 70 bpm), intervals (Prolonged QRS at 142 ms, consistent with left bundle branch block. 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 Diverticular disease with diverticulosis, BPH, NV X2, unknown dates. Last Myocardial Infarction Date:: UNK History of Any Multi-Drug Resistant Organisms: None Reported Past Surgical History: Adenoidectomy, Heart Catheterization With Stent, Joint Replacement, Tonsillectomy Additional Past Surgical History / Comment(s): LEFT KNEE REPLACMENT. Colonoscopy with polypectomy, epidural steroid injections. Past Anesthesia/Blood Transfusion Reactions: No Reported Reaction Date of Last Stent Placement:: UNK Past Psychological History: No Psychological Hx Reported Smoking Status: Former smoker Past Alcohol Use History: Rare Past Drug Use History: None Reported - Past Family History Sister(s) Family Medical History: Cancer Additional Family Medical History / Comment(s): Pancreatic cancer. Father History Unknown: Yes Family Medical History: Cancer Mother History Unknown: Yes Family Medical History: Congestive Heart Failure (CHF) Additional Family Medical History / Comment(s): AT AGE 94. Course Vital Signs 11/12/22 11/12/22 11/12/22 16:30 16:53 17:00 Temperature 98.3 F Pulse Rate 68 65 Respiratory 22 18 18 Rate Blood Pressure 166/84 166/84 O2 Sat by Pulse 97 98 96 Oximetry 11/12/22 11/12/22 11/12/22 17:15 17:30 17:35 Temperature 98.3 F Pulse Rate 70 64 69 Respiratory 20 16 18 Rate Blood Pressure 161/94 161/94 O2 Sat by Pulse 98 99 97 Oximetry 11/12/22 11/12/22 11/12/22 17:45 18:00 18:02 Temperature 98.4 F Pulse Rate 64 61 69 Respiratory 18 18 18 Rate Blood Pressure 173/94 173/94 165/94 O2 Sat by Pulse 98 98 97 Oximetry 11/12/22 11/13/22 11/13/22 21:09 00:36 02:30 Temperature Pulse Rate 65 56 L 71 Respiratory 18 16 18 Rate Blood Pressure 159/84 152/87 148/82 O2 Sat by Pulse 98 97 97 Oximetry 11/13/22 11/13/22 11/13/22 04:36 06:19 07:00 Temperature Pulse Rate 68 70 72 Respiratory 18 18 18 Rate Blood Pressure 169/92 166/89 172/95 O2 Sat by Pulse 97 96 96 Oximetry 11/13/22 11/13/22 11/13/22 07:52 08:00 09:00 Temperature Pulse Rate 74 74 Respiratory 19 19 Rate Blood Pressure 181/108 164/88 O2 Sat by Pulse 96 96 96 Oximetry 11/13/22 11/13/22 10:00 14:17 Temperature Pulse Rate 67 66 Respiratory 18 18 Rate Blood Pressure 157/82 154/87 O2 Sat by Pulse 99 97 Oximetry - Reevaluation(s) Reevaluation #1: 11/12/22 17:01 Reevaluation, the patient states she is feeling much better. He demonstrated that he is able to move his left arm and the drip is approximately symmetric to the right. He is able to lift his left leg off the bed against gravity. Following that I did discuss the case with Dr. Cazares, the stroke team and at this point patient not TPA candidate as he has had marked improvement and his NIH score is down to 1. The patient to be admitted with neurology consultation. Critical Care Time Critical Care Time: Yes (35 minutes) Disposition Clinical Impression: Transient cerebral ischemia Disposition: ADMITTED IP TO THIS HOSP
[2022-11-12 16:52] LABS: Basophils % (A) 0 %; Eosinophils # (A) 0.3 k/uL (0-0.7); Eosinophils % (A) 4 %; HCT 44.6 % (39.0-53.0); HGB 14.4 gm/dL (13.0-17.5); Lymphocytes # (A) 3.1 k/uL (1.0-4.8); Lymphocytes % (A) 38 %; MCH 28.1 pg (25.0-35.0); MCHC 32.4 g/dL (31.0-37.0); MCV 86.8 fL (80.0-100.0); Mean Platelet Volume 8.7; Monocytes # (A) 0.4 k/uL (0-1.0); Monocytes % (A) 5 %; Neutrophils # (A) 4.2 k/uL (1.3-7.7); Neutrophils % (A) 51 %; Platelet Count 128 k/uL (150-450); RBC 5.14 m/uL (4.30-5.90); WBC 8.2 k/uL (3.8-10.6)
[2022-11-12 17:00] LABS: ALT 19 U/L (4-49); AST 21 U/L (17-59); African American GFR (CKD) 70 (>60 ml/min/1.73 sqM); Albumin 4.1 g/dL (3.5-5.0); Alkaline Phosphatase 73 U/L (38-126); Anion Gap 10 mmol/L; Blood Urea Nitrogen 29 mg/dL (9-20); Calcium 9.1 mg/dL (8.4-10.2); Carbon Dioxide 20 mmol/L (22-30); Chloride 105 mmol/L (98-107); Creatine Kinase 58 U/L (55-170); Glucose 89 mg/dL (74-99); Non-African American GFR(CKD) 61 (>60 ml/min/1.73 sqM); Potassium 4.4 mmol/L (3.5-5.1); Sodium 135 mmol/L (137-145); Total Bilirubin 0.4 mg/dL (0.2-1.3); Total Protein 7.3 g/dL (6.3-8.2)
[2022-11-12 17:06] LABS: INR 0.9 (<1.2); Partial Thromboplastin Time 20.9 sec (22.0-30.0)
[2022-11-12 17:08] LABS: Prothrombin Time 9.8 sec (9.0-12.0)
--- NOTE | 2022-11-12 17:09 | CT ---
EXAMINATION TYPE: CT brain wo con for TPA CT DLP: 1863.9 mGycm, Automated exposure control for dose reduction was used. DATE OF EXAM: 11/12/2022 4:54 PM COMPARISON: MR brain 03/21/2020. CLINICAL INDICATION:Male, 82 years old with history of Neuro deficit, acute, stroke suspected, left s steve weakness TECHNIQUE: Brain: Axial CT images of the brain were obtained with coronal and sagittal reformats created and rev iewed. Contrast used: None. Oral contrast used: None. FINDINGS: Brain: Extra-axial spaces: No abnormal extra-axial fluid collections. Ventricular system: Dilatation in proportion to cerebral atrophy. Cerebral parenchyma: Cerebral atrophy. No acute intraparenchymal hemorrhage or mass effect. The randolph -white junction is well differentiated. Scattered hypoattenuating areas are seen within the white mat ter. Cerebellum: Unremarkable. Mass effect: No evidence of midline shift. Intracranial vasculature: Atherosclerotic calcifications of the intracranial vessels. Soft tissues: Normal. Calvarium/osseous structures: No depressed skull fracture. Paranasal sinuses and mastoid air cells: Mild scattered paranasal sinus disease. Visualized orbits: Bilateral aphakia IMPRESSION: 1. No acute intracranial process. 2. Nonspecific white matter changes, likely secondary to chronic small vessel ischemic disease.
--- NOTE | 2022-11-12 17:17 | CT ---
EXAMINATION TYPE: CT angio head neck CT DLP: 1863.9 mGycm, Automated exposure control for dose reduction was used. DATE OF EXAM: 11/12/2022 5:05 PM COMPARISON: 03/20/2020. CLINICAL INDICATION:Male, 82 years old with history of Neuro deficit, acute, stroke suspected; PHH, l eft side weakness TECHNIQUE: Axially acquired helical CT angiogram of the head and neck was obtained with contrast. Axi al images are supplemented with 3D reconstructions [facility] NASCET criteria used. Contrast used:65 mL of Isovue 370 with IV Contrast, Oral contrast used: None. FINDINGS: CTA HEAD: No evidence of acute intracranial hemorrhage, mass effect, or midline shift. The ventricles, sulci, a nd cisterns are unremarkable. The visualized portions of the internal carotid arteries, middle cerebral arteries, anterior cerebral arteries, and posterior cerebral arteries are patent. Atherosclerosis of the carotid siphons bilater ally. Diminutive right A1 segment. origin of the left posterior cerebral artery. The basilar and vertebral arteries are patent. CTA NECK: Right Carotid System: The common carotid and external carotid arteries are patent. There is approximately 25% stenosis sten osis at the carotid bifurcation and 50-70 % stenosis of the proximal internal carotid artery secondar y to calcified/noncalcified plaquing. The rest of the internal carotid artery is patent. Left Carotid System: The common carotid and external carotid arteries are patent. There is approximately greater than 70% % stenosis at the carotid bifurcation secondary to calcified/noncalcified plaquing. The rest of the i nternal carotid artery is patent. The right vertebral artery origin is patent. The left vertebral artery origin demonstrates 50% stenos is at the origin.. There is a 2 vessel aortic arche. The origins of the great vessels are patent. No evidence of hemodynamically significant stenosis. Atherosclerosis of the thoracic aorta. 25% stenosis of the proximal left subclavian artery secondary to noncalcified plaque. IMPRESSION: Overall findings similar 2019. 1. Greater than 70% stenosis of the left proximal internal carotid artery and 50-70% stenosis of the right proximal internal carotid artery. 2. At least 50% stenosis of the origin of left vertebral artery. 3. No evidence of dissection of the cervical internal carotid arteries or vertebral arteries. 4. No evidence of intracranial high-grade stenosis or intracranial aneurysm.
[2022-11-12] MEDS ORDERED: ASPIRIN 325 MG TAB PO STA (18:01)
[2022-11-12] MEDS ORDERED: NITROGLYCERIN SL TABS 0.4 MG TAB SUBLINGUAL PRN (18:04)
[2022-11-12] MEDS ORDERED: HYDROcodone/APAP 7.5-325MG 1 EACH TAB PO PRN (18:04)
--- NOTE | 2022-11-12 18:09 | XR ---
EXAMINATION TYPE: XR chest 2V DATE OF EXAM: 11/12/2022 5:34 PM COMPARISON: Chest radiographs from 09/19/2015 TECHNIQUE: XR chest 2V Frontal and lateral views of the chest. CLINICAL INDICATION:Male, 82 years old with history of altered mental status; FINDINGS: Lungs/Pleura: There is flattening of the diaphragm with increased lucency of the lungs. No evidence o f pneumothorax, pleural effusion or focal consolidation. Pulmonary vascularity: Unremarkable. Heart/mediastinum: Cardiomediastinal silhouette is prominent in size. Atherosclerotic calcifications are seen in the aorta. Musculoskeletal: No acute osseous pathology. IMPRESSION: 1. No acute cardiopulmonary disease process. 2. COPD changes.
[2022-11-12] MEDS: SODIUM CHLORIDE 0.9% 1,000 ML IV SCH (18:25)
[2022-11-12] MEDS: METOPROLOL TARTRATE 25 MG TAB PO SCH (20:51)
[2022-11-12] MEDS: DOXAZOSIN 4 MG TAB PO SCH (20:51)
[2022-11-12] MEDS: FAMOTIDINE 20 MG TAB PO SCH (20:51)
[2022-11-12] MEDS ORDERED: IBUPROFEN 400 MG TAB PO STA (20:55)
[2022-11-12] MEDS ORDERED: LOSARTAN 50 MG TAB PO SCH (21:00)
[2022-11-12] MEDS ORDERED: DOCUSATE 100 MG CAP PO SCH (21:00)
[2022-11-12] MEDS ORDERED: DOXAZOSIN 4 MG TAB PO SCH (21:00)
[2022-11-12] MEDS ORDERED: METOPROLOL TARTRATE 25 MG TAB PO SCH (21:00)
[2022-11-12] MEDS ORDERED: ATORVASTATIN 80 MG TAB PO SCH (21:00)
[2022-11-13] MEDS: DOCUSATE 100 MG CAP PO SCH ×3 (01:04→18:14)
[2022-11-13] MEDS ORDERED: TAMSULOSIN 0.4 MG CAP.ER.24H PO SCH (09:00)
[2022-11-13] MEDS: FAMOTIDINE 20 MG TAB PO SCH ×2 (09:04→19:39)
[2022-11-13] MEDS: METOPROLOL TARTRATE 25 MG TAB PO SCH ×2 (09:04→19:39)
[2022-11-13] MEDS: LOSARTAN 50 MG TAB PO SCH (09:04)
[2022-11-13] MEDS: TAMSULOSIN 0.4 MG CAP.ER.24H PO SCH (09:04)
[2022-11-13] MEDS: ASPIRIN 325 MG TAB PO SCH (09:05)
--- NOTE | 2022-11-13 11:18 | P.GSCN ---
History of Present Illness Consult date: 11/13/22 Reason for Consult: TIA Requesting physician: Dyllan Marshall History of present illness: This is a pleasant 82-year-old male who presented to the emergency department yesterday by EMS for stroke like symptoms. He states he got up yesterday and felt confused, he had an appointment with the manager process improvement and got lost. He t hen went to [employer] states he felt that he was somewhat disoriented in the store, then went home he was reading a paper when he states he felt like his head and neck Week, and then he got weak in the left upper and lower extremity. He denies any other focal deficits at that time including vision loss, difficulty speaking, or facial drooping. He states he was able to call 911. He has a past medical history including coronary artery disease, heart failure, GERD, hyperlipidemia, hypertension, BPH, thyroid disorder, myocardial infarction 2 status post 4 stents. He underwent a CT angiogram of head and neck which reported greater than 70% left proximal ICA 50-70% of right proximal ICA sten osis, 50% left vertebral artery stenosis. Vascular surgery was consulted for TIA with symptomatic ICA stenosis. It also was reported in the CTA that 2020 patient had similar results, that CT angiogram head and neck did report 70% left ICA stenosis approximately 65% right ICA stenosis. Patient denies any real knowledge of having ICA stenosis, does not believe he has followed with anybody. He denies any previous history of stroke symptoms. Brain CT shows no acute findings. Nonspecific white matter changes, likely secondary to Chronic small vessel ischemic disease. He currently states he has no chest pain, shortness of breath, abdominal pain, nausea or vomiting. He reports improved strength to his left upper extremity but still has left lower extremity weakness. Denies any other focal deficits. States he is right hand dominant. Denies any fall during the episode yesterday states he was able to brace himself with his right hand. Patient does report daily baby aspirin. Review of Systems A 14 point review systems was completed all pertinent positives and negatives as stated in the HPI. Past Medical History Past Medical History: Coronary Artery Disease (CAD), Heart Failure, GERD/Reflux, Hyperlipidemia, Hypertension, Myocardial Infarction ([place]), Musculoskeletal Disorder, Osteoarthritis (OA), Prostate Disorder, Thyroid Disorder Additional Past Medical History / Comment(s): Lumbar disc disease, HERNIATED DISC IN BACK. Diverticular disease with diverticulosis, BPH, [place] X2, unknown dates. Last Myocardial Infarction Date:: UNK History of Any Multi-Drug Resistant Organisms: None Reported Past Surgical History: Adenoidectomy, Heart Catheterization With Stent, Joint Replacement, Tonsillectomy Additional Past Surgical History / Comment(s): LEFT KNEE REPLACMENT. Colonoscopy with polypectomy, epidural steroid injections. Past Anesthesia/Blood Transfusion Reactions: No Reported Reaction Date of Last Stent Placement:: UNK Past Psychological History: No Psychological Hx Reported Smoking Status: Former smoker Past Alcohol Use History: Rare Past Drug Use History: None Reported - Past Family History Sister(s) Family Medical History: Cancer Additional Family Medical History / Comment(s): Pancreatic cancer. Father History Unknown: Yes Family Medical History: Cancer Mother History Unknown: Yes Family Medical History: Congestive Heart Failure (CHF) Additional Family Medical History / Comment(s): AT AGE 94. Medications and Allergies Home Medications Medication Instructions Recorded Confirmed Type Metoprolol Tartrate 25 mg PO BID 06/02/15 11/12/22 History Terazosin HCl 5 mg PO HS 06/02/15 11/12/22 History Nitroglycerin Sl Tabs [Nitrostat] 0.4 mg SUBLINGUAL Q5M PRN #25 tab 06/04/15 11/12/22 Rx Aspirin 81 mg PO DAILY 09/19/15 11/12/22 History Prednisolone Acetate/Pf 1 drop LEFT EYE DAILY 03/20/20 11/12/22 History [Prednisolone Acet 1% Eye Drop] Tamsulosin [Flomax] 0.4 mg PO DAILY 03/20/20 11/12/22 History Baclofen 5 - 10 mg PO BID PRN 11/12/22 11/12/22 History Furosemide [Lasix] 40 mg PO DAILY 11/12/22 11/12/22 History HYDROcodone/APAP 7.5-325MG [[place] 1 tab PO Q8H PRN 11/12/22 11/12/22 History 7.5-325] Losartan [Cozaar] 50 mg PO DAILY 11/12/22 11/12/22 History Allergies Allergy/AdvReac Type Severity Reaction Status Date / Time No Known Allergies Allergy Verified 11/12/22 18:57 Surgical - Exam Vital Signs Pulse Resp BP Pulse Ox 68 22 166/84 97 11/12/22 16:30 11/12/22 16:30 11/12/22 16:30 11/12/22 16:30 General appearance: The patient is alert, oriented, appears in no acute distres s. HET: Head is normocephalic and atraumatic. Pupils are equal and reactive. Neck: Supple. No carotid bruit. Heart: Regular. Lungs: Equal expansion, normal respiratory effort. Abdomen: Soft, nontender, nondistended. Extremities: Normal skin color and turgor. Neurological: She is alert and oriented 3. He has facial symmetry, speech is fluent, he is able to follow commands and answer questions appropriately. Bilateral upper extremities with good strength and tone. Left upper extremity with minimal weakness compared to right. Bilateral lower extremity with good tone, left lower extremity weakness. Results - Labs 11/12/22 16:21 11/12/22 16:21 Abnormal Lab Results - Last 24 Hours (Table) 11/12/22 11/12/22 11/12/22 Range/Units 16:21 16:21 16:21 Plt Count 128 L (150-450) k/uL APTT 20.9 L (22.0-30.0) sec Sodium 135 L (137-145) mmol/L Carbon Dioxide 20 L (22-30) mmol/L BUN 29 H (9-20) mg/dL Diabetes panel 11/12/22 Range/Units 16:21 Sodium 135 L (137-145) mmol/L Potassium 4.4 (3.5-5.1) mmol/L Chloride 105 (98-107) mmol/L Carbon Dioxide 20 L (22-30) mmol/L BUN 29 H (9-20) mg/dL Creatinine 1.11 (0.66-1.25) mg/dL Glucose 89 (74-99) mg/dL Calcium 9.1 (8.4-10.2) mg/dL AST 21 (17-59) U/L ALT 19 (4-49) U/L Alkaline Phosphatase 73 (38-126) U/L Total Protein 7.3 (6.3-8.2) g/dL Albumin 4.1 (3.5-5.0) g/dL Calcium panel 11/12/22 Range/Units 16:21 Calcium 9.1 (8.4-10.2) mg/dL Albumin 4.1 (3.5-5.0) g/dL Pituitary panel 11/12/22 Range/Units 16:21 Sodium 135 L (137-145) mmol/L Potassium 4.4 (3.5-5.1) mmol/L Chloride 105 (98-107) mmol/L Carbon Dioxide 20 L (22-30) mmol/L BUN 29 H (9-20) mg/dL Creatinine 1.11 (0.66-1.25) mg/dL Glucose 89 (74-99) mg/dL Calcium 9.1 (8.4-10.2) mg/dL Adrenal panel 11/12/22 Range/Units 16:21 Sodium 135 L (137-145) mmol/L Potassium 4.4 (3.5-5.1) mmol/L Chloride 105 (98-107) mmol/L Carbon Dioxide 20 L (22-30) mmol/L BUN 29 H (9-20) mg/dL Creatinine 1.11 (0.66-1.25) mg/dL Glucose 89 (74-99) mg/dL Calcium 9.1 (8.4-10.2) mg/dL Total Bilirubin 0.4 (0.2-1.3) mg/dL AST 21 (17-59) U/L ALT 19 (4-49) U/L Alkaline Phosphatase 73 (38-126) U/L Total Protein 7.3 (6.3-8.2) g/dL Albumin 4.1 (3.5-5.0) g/dL Assessment and Plan Assessment: 1. Left-sided weakness 2. Right-sided symptomatic ICA stenosis 50-70% per CT angiogram head and neck 3. Greater than 70% left ICA stenosis per CT angiogram head and neck 4. Coronary artery disease with history of myocardial infarction and cardiac stents 5. Heart failure 6. Hypertension and hyperlipidemia 7. BPH 8. Thyroid disorder Plan: 1. Continue symptomatic and supportive care 2. Will add atorvastatin 40 mg daily, continue aspirin and await recommendations for dual antiplatelet therapy per neurology 3. Carotid duplex ordered 4. PT/OT/ST on consult 5. Await further recommendations from neurology 6. Further recommendations forthcoming per vascular surgeon Thank you for this consultation, we will continue to follow. The impression and plan of care has been dictated as directed. I performed a history and examination of this patient, discussed the same with the dictator. I agree with the dictator's note ,documented as a scribe. Any additional findings or plans will be noted.
[2022-11-13] MEDS: prednisoLONE ACETATE 1% OPHTH DROPS 5 ML BTL LEFT EYE SCH (12:05)
[2022-11-13] MEDS ORDERED: CLOPIDOGREL 75 MG TAB PO STA (12:37)
--- NOTE | 2022-11-13 12:40 | US ---
EXAMINATION TYPE: US carotid duplex BILAT DATE OF EXAM: 11/13/2022 COMPARISON: CTA 11/12/2022 CLINICAL INDICATION: Male, 82 years old with history of TIA; TECHNIQUE: Carotid duplex ultrasound examination. Indirect Doppler criteria was utilized. FINDINGS: EXAM MEASUREMENTS: RIGHT: Peak Systolic Velocity (PSV) cm/sec ----- Right CCA: 63.6 ----- Right ICA: 95.1 ----- Right ECA: 82.3 ICA/CCA ratio: 1.5 RIGHT: End Diastole cm/sec ----- Right CCA: 13.0 ----- Right ICA: 27.3 ----- Right ECA: 0.0 LEFT: Peak Systolic Velocity (PSV) cm/sec ----- Left CCA: 55.7 ----- Left ICA: 172.5 ----- Left ECA: 106.2 ICA/CCA ratio: 3.1 LEFT: End Diastole cm/sec ----- Left CCA: 13.0 ----- Left ICA: 55.5 ----- Left ECA: 7.7 VERTEBRALS (direction of flow): Right Vertebral: Antegrade Left Vertebral: Antegrade Rhythm: Normal MINE ENVIRONMENTAL ENGINEER NOTES: Extensive shadowing plaque bilaterally, left greater than right. Elevated velociti es bulb into ICA. IMPRESSION: Extensive atherosclerotic plaque with findings suggestive approximately 50-69% stenosis involving the proximal left internal carotid artery. Criteria for Assigning % of Stenosis / Diameter reduction (Estimation based on the indirect measurements of the internal carotid artery velocities (ICA PSV). 1. Normal (no stenosis)=ICA PSV < 125 cm/s: ratio < 2.0: ICA EDV<40 cm/s. 2. Less than 50% stenosis=ICA PSV < 125 cm/s: ratio < 2.0: ICA EDV<40 cm/s. 3. 50 to 69% stenosis=ICA PSV of 125 to 230 cm/s: ration 2.0 ? 4.0: ICA EDV 40-100 cm/s. 4. Greater than 70% stenosis to near occlusion= ICA PSV > 230 cm/s: ratio > 4.0: ICA EDV > 100 cm/s. 5. Near occlusion= ICA PSV velocities may be low or undetectable: variable ratio and ICA EDV. 6. Total occlusion=unable to detect flow.
--- NOTE | 2022-11-13 12:43 | P.CNNES ---
History of Present Illness Consult date: 11/13/22 Requesting physician: Tomer Castanon Reason for Consult: right sided weakness History of Present Illness: This is an 82-year-old gentleman with history of hypertension, ptosis of the left eye with shingles coronary artery disease status post stent who presented because of sudden onset left-sided weakness. Patient is accompanied with his was at bedside. Seems that yesterday around 15:30 PM patient had new onset left-sided weakness. Patient presents our facility around 1625 yesterday. According to patient he could not the left and left upper extremity but that improved yesterday. But his left lower extremity continued to be weak and he has a left facial droop as well. According to the patient and his they state the he continues to have significant left-sided the leg weakness. Patient is on aspirin 81 mg daily. He is not on any anticoagulation. Denies history of atrial flutter blister flutter to his knowledge. As a result of stroke code was activated and according to the ED team his symptoms was improving NIH was a 1. No IV TPA since his symptoms was improving per the ED team and the risks outweigh the benefits of TPA since low NIH. CT of the head is reported as no acute intracranial process. CT angiography of the head and neck is reported as overall findings similar to 2020. Greater than 70% stenosis in the left proximal internal carotid artery and 5070% stenosis of the right proximal internal carotid artery. At least 50% stenosis of the origin of the left vertebral artery. No evidence of dissection of the cervical internal carotid artery or vertebral artery. No evidence of intracranial high-grade stenosis or intracranial aneurysm. Review of Systems Review of system: The 12 point system was reviewed and apparent positive and negative per HPI. Past Medical History Past Medical History: Coronary Artery Disease (CAD), Heart Failure, GERD/Reflux, Hyperlipidemia, Hypertension, Myocardial Infarction ([place]), Musculoskeletal Disorder, Osteoarthritis (OA), Prostate Disorder, Thyroid Disorder Additional Past Medical History / Comment(s): Lumbar disc disease, HERNIATED DISC IN BACK. Diverticular disease with diverticulosis, BPH, [place] X2, unknown dates. Last Myocardial Infarction Date:: UNK History of Any Multi-Drug Resistant Organisms: None Reported Past Surgical History: Adenoidectomy, Heart Catheterization With Stent, Joint Replacement, Tonsillectomy Additional Past Surgical History / Comment(s): LEFT KNEE REPLACMENT. Colonoscopy with polypectomy, epidural steroid injections. Past Anesthesia/Blood Transfusion Reactions: No Reported Reaction Date of Last Stent Placement:: UNK Past Psychological History: No Psychological Hx Reported Smoking Status: Former smoker Past Alcohol Use History: Rare Past Drug Use History: None Reported - Past Family History Sister(s) Family Medical History: Cancer Additional Family Medical History / Comment(s): Pancreatic cancer. Father History Unknown: Yes Family Medical History: Cancer Mother History Unknown: Yes Family Medical History: Congestive Heart Failure (CHF) Additional Family Medical History / Comment(s): AT AGE 94. Medications and Allergies Home Medications Medication Instructions Recorded Confirmed Type Metoprolol Tartrate 25 mg PO BID 06/02/15 11/12/22 History Terazosin HCl 5 mg PO HS 06/02/15 11/12/22 History Nitroglycerin Sl Tabs [Nitrostat] 0.4 mg SUBLINGUAL Q5M PRN #25 tab 06/04/15 11/12/22 Rx Aspirin 81 mg PO DAILY 09/19/15 11/12/22 History Prednisolone Acetate/Pf 1 drop LEFT EYE DAILY 03/20/20 11/12/22 History [Prednisolone Acet 1% Eye Drop] Tamsulosin [Flomax] 0.4 mg PO DAILY 03/20/20 11/12/22 History Baclofen 5 - 10 mg PO BID PRN 11/12/22 11/12/22 History Furosemide [Lasix] 40 mg PO DAILY 11/12/22 11/12/22 History HYDROcodone/APAP 7.5-325MG [[place] 1 tab PO Q8H PRN 11/12/22 11/12/22 History 7.5-325] Losartan [Cozaar] 50 mg PO DAILY 11/12/22 11/12/22 History Allergies Allergy/AdvReac Type Severity Reaction Status Date / Time No Known Allergies Allergy Verified 11/12/22 18:57 Physical Examination - Vital Signs Vital Signs: Vital Signs Temp Pulse Resp BP Pulse Ox 11/13/22 10:00 67 18 157/82 99 11/13/22 09:00 74 19 164/88 96 11/13/22 08:00 74 19 181/108 96 11/13/22 07:52 96 11/13/22 07:00 72 18 172/95 96 11/13/22 06:19 70 18 166/89 96 11/13/22 04:36 68 18 169/92 97 11/13/22 02:30 71 18 148/82 97 11/13/22 00:36 56 L 16 152/87 97 11/12/22 21:09 65 18 159/84 98 11/12/22 18:02 69 18 165/94 97 11/12/22 18:00 61 18 173/94 98 11/12/22 17:45 98.4 F 64 18 173/94 98 11/12/22 17:35 69 18 97 11/12/22 17:30 64 16 161/94 99 11/12/22 17:15 98.3 F 70 20 161/94 98 11/12/22 17:00 98.3 F 65 18 166/84 96 11/12/22 16:53 18 98 11/12/22 16:30 68 22 166/84 97 Intake and Output 11/12/22 11/13/22 11/13/22 22:59 06:59 14:59 Other: Weight 98.6 kg GENERAL: The patient is lying in bed and is not in acute distress. NEUROLOGICAL: Higher mental function: The patient is awake, alert, oriented to self, place and time. Patient is following commands. No aphasia and no neglect. Cranial nerves: The pupils are round, equal and reactive to light. Left eye ptosis (old). Visual saini are full to confrontation throughout. Extraocular movement is intact no nystagmus is noted. Facial sensation is normal to touch t hroughout. Left lower facial droop. Hearing is moderately decreased bilaterally to hand rub. Tongue is midline and moved [id number] without any difficulty. Mild dysarthria is noted. Shoulder shrug is normal bilaterally. Motor: The strength is 4+ over the left upper with hand field nurse 4+. Left lower is 1-2 with left ankle is 3-4. Otherwise the right side is 5/5. Normal bulk. Cerebellum: Normal finger to nose bilaterally. Sensation: Sensation is normal to touch throughout. Reflexes (right/left): 1+ throughout. Plantars are mute bilaterally. Results - Laboratory Findings CBC and BMP: 11/12/22 16:21 11/12/22 16:21 Abnormal Lab Findings: Abnormal Labs 11/12/22 11/12/22 11/12/22 16:21 16:21 16:21 Plt Count 128 L APTT 20.9 L Sodium 135 L Carbon Dioxide 20 L BUN 29 H Assessment and Plan Assessment: This is an 82-year-old gentleman who presented to our facility on 11/12/2022 because of the sudden onset left-sided weakness. It seems in the ED he had improvement of his symptoms per the ED and his NIH was a 1 so no IV TPA was given. Currently on examination he still has significant left-sided weakness on the left lower with mild weakness of left upper as well as facial and the dysarthria. Acute ischemic stroke. Etiology probable due to symptomatic right ICA (50-70% on CTA) Symptomatic right ICA A symptomatic left ICA of greater than 70% Hypertension History of coronary artery disease status post stent Plan: Patient was started on aspirin 325 daily by ED team (he was on ASA 81mg daily). In addition I saw the patient on Plavix 75 mg daily. He started on Lipitor 40 mg daily at bedtime for secondary stroke prophylaxis I ordered MRI of the brain, 2-D echo. Lipid panel is pending. Vascular surgery team is CONSULTED and the ordered carotid duplex Continue neuro checks Cardiac monitoring PT OT and SKIP MINER are consulted Keep the blood pressure permissive for 48 hours. Treatment of blood pressure if the systolic is more than 180 We'll defer the rest of the medical management to the primary team and other specialist For DVT prophylaxis I started the patient on subcu heparin 5000 units every 12 hours The plan discussed with the patient and his is at bedside. Also discussed with his nurse. Time with Patient: Greater than 30
--- NOTE | 2022-11-13 12:53 | P.HPIM ---
History of Present Illness H&P Date: 11/13/22 History of present illness; patient is a 82-year-old gentleman with past medical history significant for hypertension brought to the hospital because of left- sided weakness. Patient stated that he was out shopping when after returning home he started feeling unwell he went down to sit on the bed and noted that he started developing left-sided weakness involving both his arm and leg, there was no evidence of any slurred speech, no pain of any facial droop. Patient called EMS and was brought to the ER. The patient was worked up in the ER, his weakness had improved, NIH improved to 1. Initial lab work done in the ER showed WBC 8.2, hemoglobin 14.4, platelet count 128, sodium 135, potassium 4.4, BUN 29, creatinine 1.11, CT brain negative for any acute intracranial process CT angiogram head and neck showed greater than 70% stenosis of the left proximal internal carotid artery and 50%-70% stenosis of right proximal internal carotid artery Case was discussed by ER with the sales consultant residential manager stroke team, patient was not a candidate for any TPA, they recommended inpatient admission with consult to fernando thomason On discussion with patient's , patient still having left-sided leg weakness, status left upper extremity weakness has improved. Denies any slurred speech. REVIEW OF SYSTEMS: CONSTITUTIONAL: No fever, no malaise, no fatigue. HEENT: No recent visual problems or hearing problems. Denied any sore throat. CARDIOVASCULAR: No chest pain, orthopnea, PND, no palpitations, no syncope. PULMONARY: No shortness of breath, no cough, no hemoptysis. GASTROINTESTINAL: No diarrhea, no nausea, no vomiting, no abdominal pain. NEUROLOGICAL: As mentioned in HPI HEMATOLOGICAL: Denies any bleeding or petechiae. GENITOURINARY: Denies any burning micturition, frequency, or urgency. MUSCULOSKELETAL/RHEUMATOLOGICAL: Denies any joint pain, swelling, or any muscle pain. ENDOCRINE: Denies any polyuria or polydipsia. The rest of the 14-point review of systems is negative. PHYSICAL EXAMINATION: GENERAL: The patient is alert and oriented x3, not in any acute distress. Well developed, well nourished. HEENT: Pupils are round and equally reacting to light. EOMI. No scleral icterus. No conjunctival pallor. Normocephalic, atraumatic. No pharyngeal erythema. No thyromegaly. CARDIOVASCULAR: S1 and S2 present. No murmurs, rubs, or gallops. PULMONARY: Chest is clear to auscultation, no wheezing or crackles. ABDOMEN: Soft, nontender, nondistended, normoactive bowel sounds. No palpable organomegaly. MUSCULOSKELETAL: No joint swelling or deformity. EXTREMITIES: No cyanosis, clubbing, or pedal edema. NEUROLOGICAL: Gross neurological examination did not reveal any focal deficits. Cranial nerves II through XII intact, muscle strength is 5 over 5 in all extremities, muscle strength is 2/5 in left lower extremity SKIN: No rashes. Assessment and plan Acute CVA Symptomatic right ICA A symptomatic left ICA of greater than 70% Hypertension Plan; Monitor vital signs Monitor CBC Monitor CMP Continue neuro checks 2-D echo ordered MRI brain ordered Results of CTA head and neck noted, we'll consult vascular surgery. Continue aspirin and Lipitor Neurology consulted DVT prophylaxis: Past Medical History Past Medical History: Coronary Artery Disease (CAD), Heart Failure, GERD/Reflux, Hyperlipidemia, Hypertension, Myocardial Infarction ([place]), Musculoskeletal Disorder, Osteoarthritis (OA), Prostate Disorder, Thyroid Disorder Additional Past Medical History / Comment(s): Lumbar disc disease, HERNIATED DISC IN BACK. Diverticular disease with diverticulosis, BPH, [place] X2, unknown dates. Last Myocardial Infarction Date:: UNK History of Any Multi-Drug Resistant Organisms: None Reported Past Surgical History: Adenoidectomy, Heart Catheterization With Stent, Joint Replacement, Tonsillectomy Additional Past Surgical History / Comment(s): LEFT KNEE REPLACMENT. Colonoscopy with polypectomy, epidural steroid injections. Past Anesthesia/Blood Transfusion Reactions: No Reported Reaction Date of Last Stent Placement:: UNK Past Psychological History: No Psychological Hx Reported Smoking Status: Former smoker Past Alcohol Use History: Rare Past Drug Use History: None Reported - Past Family History Sister(s) Family Medical History: Cancer Additional Family Medical History / Comment(s): Pancreatic cancer. Father History Unknown: Yes Family Medical History: Cancer Mother History Unknown: Yes Family Medical History: Congestive Heart Failure (CHF) Additional Family Medical History / Comment(s): AT AGE 94. Medications and Allergies Home Medications Medication Instructions Recorded Confirmed Type Metoprolol Tartrate 25 mg PO BID 06/02/15 11/12/22 History Terazosin HCl 5 mg PO HS 06/02/15 11/12/22 History Nitroglycerin Sl Tabs [Nitrostat] 0.4 mg SUBLINGUAL Q5M PRN #25 tab 06/04/15 11/12/22 Rx Aspirin 81 mg PO DAILY 09/19/15 11/12/22 History Prednisolone Acetate/Pf 1 drop LEFT EYE DAILY 03/20/20 11/12/22 History [Prednisolone Acet 1% Eye Drop] Tamsulosin [Flomax] 0.4 mg PO DAILY 03/20/20 11/12/22 History Baclofen 5 - 10 mg PO BID PRN 11/12/22 11/12/22 History Furosemide [Lasix] 40 mg PO DAILY 11/12/22 11/12/22 History HYDROcodone/APAP 7.5-325MG [[place] 1 tab PO Q8H PRN 11/12/22 11/12/22 History 7.5-325] Losartan [Cozaar] 50 mg PO DAILY 11/12/22 11/12/22 History Allergies Allergy/AdvReac Type Severity Reaction Status Date / Time No Known Allergies Allergy Verified 11/12/22 18:57 Physical Exam Vitals: Vital Signs Temp Pulse Resp BP Pulse Ox 11/13/22 09:00 74 19 164/88 96 11/13/22 08:00 74 19 181/108 96 11/13/22 07:52 96 11/13/22 07:00 72 18 172/95 96 11/13/22 06:19 70 18 166/89 96 11/13/22 04:36 68 18 169/92 97 11/13/22 02:30 71 18 148/82 97 11/13/22 00:36 56 L 16 152/87 97 11/12/22 21:09 65 18 159/84 98 11/12/22 18:02 69 18 165/94 97 11/12/22 18:00 61 18 173/94 98 11/12/22 17:45 98.4 F 64 18 173/94 98 11/12/22 17:35 69 18 97 11/12/22 17:30 64 16 161/94 99 11/12/22 17:15 98.3 F 70 20 161/94 98 11/12/22 17:00 98.3 F 65 18 166/84 96 11/12/22 16:53 18 98 06/19/23 16:30 68 22 166/84 97 Intake and Output 11/12/22 11/13/22 11/13/22 22:59 06:59 14:59 Other: Weight 98.6 kg Results CBC & Chem 7: 11/12/22 16:21 11/12/22 16:21 Labs: Abnormal Lab Results - Last 24 Hours (Table) 11/12/22 11/12/22 11/12/22 Range/Units 16:21 16:21 16:21 Plt Count 128 L (150-450) k/uL APTT 20.9 L (22.0-30.0) sec Sodium 135 L (137-145) mmol/L Carbon Dioxide 20 L (22-30) mmol/L BUN 29 H (9-20) mg/dL
[2022-11-13 15:14] LABS: T4, Free (Free Thyroxine) 1.01 ng/dL (0.78-2.19)
[2022-11-13] MEDS: SODIUM CHLORIDE 0.9% 1,000 ML IV SCH (18:14)
[2022-11-13] MEDS: DOXAZOSIN 4 MG TAB PO SCH (19:39)
[2022-11-13] MEDS: ATORVASTATIN 40 MG TAB PO SCH (19:39)
[2022-11-13] MEDS: HEPARIN SODIUM,PORCINE/PF 5,000 UNIT/0.5 ML SYRINGE SQ SCH (19:39)
[2022-11-13] MEDS: HYDROcodone/APAP 7.5-325MG 1 EACH TAB PO PRN (21:12)
[2022-11-13 21:22] LABS: Chol/HDL Ratio 6.65 Ratio; LDL Cholesterol,Calculated 145.4 mg/dL (0.0-131.0)
[2022-11-14] MEDS ORDERED: DOCUSATE 100 MG CAP ONE (00:05)
[2022-11-14] MEDS ORDERED: prednisoLONE ACETATE 1% OPHTH DROPS 5 ML BTL BOTH EYES SCH (09:00)
[2022-11-14] MEDS: DOCUSATE 100 MG CAP PO SCH ×4 (09:33→23:38)
[2022-11-14] MEDS: CLOPIDOGREL 75 MG TAB PO SCH (09:35)
[2022-11-14] MEDS: TAMSULOSIN 0.4 MG CAP.ER.24H PO SCH (09:35)
[2022-11-14] MEDS: FUROSEMIDE 40 MG TAB PO SCH (09:35)
[2022-11-14] MEDS: LOSARTAN 50 MG TAB PO SCH (09:35)
[2022-11-14] MEDS: HEPARIN SODIUM,PORCINE/PF 5,000 UNIT/0.5 ML SYRINGE SQ SCH ×2 (09:35→20:26)
[2022-11-14] MEDS: METOPROLOL TARTRATE 25 MG TAB PO SCH ×2 (09:35→20:26)
[2022-11-14] MEDS: ASPIRIN 325 MG TAB PO SCH (09:35)
[2022-11-14] MEDS: prednisoLONE ACETATE 1% OPHTH DROPS 5 ML BTL LEFT EYE SCH (09:36)
[2022-11-14] MEDS: FAMOTIDINE 20 MG TAB PO SCH ×2 (09:36→20:26)
--- NOTE | 2022-11-14 10:05 | P.PN ---
Subjective Progress Note Date: 11/14/22 Principal diagnosis: Carotid stenosis Patient seen and examined today sitting up in his bed. He was just working with physical therapy and they were not able to get him up and ambulate him with a walker. He states that left lower extremity strength is improving. No new focal deficits through the night. MRI of the brain is ordered as well as echocardiogram, both pending. Neurology added Plavix 75 mg daily. Carotid duplex reported no significant stenosis in the right ICA, left ICA 50-69% stenosis of left proximal internal carotid artery. Carotid duplex as well as a CT angiogram imaging was reviewed by Dr. Esparza, he agrees with CTA head and neck right ICA closer to 50-70% stenosis. Objective - Vital Signs Vital signs: Vital Signs Temp 97.9 F 11/14/22 09:30 Pulse 81 11/14/22 09:30 Resp 16 11/14/22 09:30 BP 132/61 11/14/22 09:30 Pulse Ox 96 11/14/22 09:30 FiO2 Intake & Output 11/13/22 11/14/22 11/14/22 18:59 06:59 18:59 Intake Total 200 540 180 Output Total 650 Balance 200 -110 180 Weight 98.6 kg Intake: Oral 200 540 180 Output: Urine 650 Other: Voiding Method Bedside Commode Bedside Commode # Voids 2 2 - Exam General appearance: The patient is alert, oriented, appears in no acute distress. HET: Head is normocephalic and atraumatic. Pupils are equal and reactive. Neck: Supple. No bruit. Heart: Regular. Lungs: Equal expansion, normal respiratory effort. Abdomen: Soft, nontender, nondistended. Extremities: Normal skin color and turgor. Palpable bilateral radial and DP pulses. Neurological: Alert and oriented 3. Facial symmetry, speech is fluent. Bilateral upper extremity strength normal, mild left lower extremity weakness, improved from yesterday. - Labs CBC & Chem 7: 11/14/22 12:11 11/14/22 12:11 Labs: Abnormal Lab Results - Last 24 Hours (Table) 11/12/22 11/13/22 Range/Units 16:21 12:52 Cholesterol 206.00 H (0.00-200.00) mg/dL LDL Cholesterol, Calc 145.4 H (0.0-131.0) mg/dL HDL Cholesterol 31.00 L (40.00-60.00) mg/dL TSH 4.820 H (0.465-4.680) mIU/L Assessment and Plan Assessment: 1. MRI brain reports Scattered right CVA foci within the right srivastava radiata and right centrum semielemental involving the posterior right frontal lobe and parietal region with symptoms of left-sided weakness 2. Right-sided symptomatic ICA stenosis 50-70% per CT angiogram head and neck 3. Greater than 70% left ICA stenosis per CT angiogram head and neck 4. Coronary artery disease with history of myocardial infarction and cardiac stents 5. Heart failure, EF 25-30% 6. Hypertension and hyperlipidemia 7. BPH 8. Thyroid disorder Plan: 1. Continue symptomatic and supportive care 2. Continue Plavix, aspirin, atorvastatin as ordered 3. Carotid duplex ordered and reviewed 4. PT/OT/ST on consult 5. MRI and echocardiogram ordered per neurology Carotid duplex reported no significant stenosis in the right ICA, left 50-69% stenosis of left proximal internal carotid artery. Carotid duplex as well as a CT angiogram head and neck imaging was reviewed by Dr. Esparza, he agrees with CTA head and neck right ICA closer to 50-70% stenosis. Per neurology's notes they believe patient has symptomatic right internal carotid artery stenosis, and will need surgical intervention. Surgical options and risks and benefits discussed with patient for trans-carotid artery revascularization versus right carotid endarterectomy. Disk of CT angiogram head and neck will be reviewed by vendor to determine if patient is a candidate for trans-carotid artery revascularization. The patient will need to be on Plavix for minimum of 5 days prior to procedure. Timing to be determined and will be discussed with neurology. Patient will also need surgical intervention for left internal smith tid artery stenosis greater than 70% in the future. This will be further discussed in the outpatient setting. Cardiology consulted for cardiac clearance with known history of coronary artery disease and EF of 25-30%. Thank you for this consultation, we will continue to follow. The impression and plan of care has been dictated as directed. Dr. Potts I performed a history and examination of this patient, discussed the same with the dictator. I agree with the dictator's note ,documented as a scribe. Any additional findings or plans will be noted.
--- NOTE | 2022-11-14 11:15 | MR ---
EXAMINATION TYPE: MR brain wo con DATE OF EXAM: 11/14/2022 10:32 AM COMPARISON: 03/21/2020. CLINICAL INDICATION:Male, 82 years old with history of left hemiparesis. stroke; Left sided weakness TECHNIQUE: Multi planar, multi sequence imaging was performed through the brain including: T1, T2, In version recovery, Diffusion weighted imaging, and gradient echo imaging. No gadolinium was given. FINDINGS: Scattered areas of infarct are seen within the right centrum semiovale and right srivastava rad iata near the posterior right frontal lobe and right centrum semiovale. The randolph-white junctions, ventricular system, and cisterns appear unremarkable. Scattered foci of hi gh T2 signal intensity are seen within the periventricular white matter. Midline structures show no a bnormality. The susceptibility weighted images do not reveal any evidence for micro-hemorrhage. The bone marrow signal is within normal limits. Paranasal sinuses and mastoid air cells: No significant paranasal sinus disease. Visualized orbits: Bilateral aphakia IMPRESSION: 1. Scattered right CVA foci within the right srivastava radiata and right centrum semiovale involving th e posterior right frontal lobe and parietal region. 2. Nonspecific white matter changes likely secondary to chronic angiopathy. 3. Mild generalized atrophy changes.
[2022-11-14 12:34] LABS: Basophils % (A) 0 %; Eosinophils # (A) 0.2 k/uL (0-0.7); Eosinophils % (A) 3 %; HCT 44.8 % (39.0-53.0); Lymphocytes # (A) 1.9 k/uL (1.0-4.8); Lymphocytes % (A) 34 %; MCH 26.9 pg (25.0-35.0); MCHC 31.3 g/dL (31.0-37.0); MCV 85.8 fL (80.0-100.0); Mean Platelet Volume 8.2; Monocytes # (A) 0.3 k/uL (0-1.0); Monocytes % (A) 5 %; Neutrophils # (A) 3.2 k/uL (1.3-7.7); Neutrophils % (A) 56 %; Platelet Count 155 k/uL (150-450); RBC 5.22 m/uL (4.30-5.90); RDW 14.2 % (11.5-15.5); WBC 5.8 k/uL (3.8-10.6)
--- NOTE | 2022-11-14 12:45 | CA ---
Transthoracic Echo Report Name: Ba Sanchez Age: 82 Gender: M : 1940 Exam Date: 11/13/2022 13:52 Exam Location: [facility] Ht (in): 70 Wt (lb): 217 Ordering Physician: Moe Samano MD Attending/Referring Phys: Accounting Lecturer Chloe Louise RDCS Procedure CPT: Indications: stroke Cardiac Hx: Technical Quality: Good Contrast 1: Total Dose (mL): Contrast 2: Total Dose (mL): MEASUREMENTS (Male / Female) Normal Values 2D ECHO LV Diastolic Diameter PLAX 5.2 cm 4.2 - 5.9 / 3.9 - 5.3 cm LV Systolic Diameter PLAX 4.1 cm IVS Diastolic Thickness 1.3 cm 0.6 - 1.0 / 0.6 - 0.9 cm LVPW Diastolic Thickness 1.2 cm 0.6 - 1.0 / 0.6 - 0.9 cm LV Relative Wall Thickness 0.5 RV Internal Dim ED PLAX 3.5 cm LA Systolic Diameter LX 4.2 cm 3.0 - 4.0 / 2.7 - 3.8 cm LV Diastolic Volume MOD 4C 157.7 cm??? LV Systolic Volume MOD 4C 100.9 cm??? LV Ejection Fraction MOD 4C 36.1 % LV Diastolic Length 4C 10.0 cm LV Systolic Length 4C 8.7 cm LV Diastolic Volume MOD 2C 109.3 cm??? LV Systolic Volume MOD 2C 76.6 cm??? LV Ejection Fraction MOD 2C 29.9 % LV Diastolic Length 2C 10.2 cm LV Systolic Length 2C 8.9 cm LA Volume 77.7 cm??? 18 - 58 / 22 - 52 cm??? M-MODE Aortic Root Diameter MM 3.6 cm MV E Point Septal Separation 1.6 cm AV Cusp Separation MM 2.2 cm DOPPLER AV Peak Velocity 109.4 cm/s AV Peak Gradient 4.8 mmHg MV Area PHT 1.8 cm??? Mitral E Point Velocity 52.8 cm/s Mitral A Point Velocity 92.8 cm/s Mitral E to A Ratio 0.6 MV Deceleration Time 431.3 ms MV E' Velocity 3.4 cm/s Mitral E to MV E' Ratio 15.6 TR Peak Velocity 201.7 cm/s TR Peak Gradient 16.3 mmHg Right Ventricular Systolic Press 20.8 mmHg FINDINGS Left Ventricle Left ventricular ejection fraction is estimated at 25-30 %. Left ventricular cavity size normal. Mildly increased septal wall thickness. Severely reduced global left ventricular systolic function. Right Ventricle Mild right ventricular dilatation. Right ventricular systolic pressure within normal limits. Right Atrium Normal right atrial size. Left Atrium Mildly increased left atrial diameter. Moderately increased left atrial volume. Mildly increased left atrial area. Mitral Valve Structurally normal mitral valve. Trace mitral regurgitation. Aortic Valve Trileaflet aortic valve. No aortic valve stenosis or regurgitation. Tricuspid Valve Structurally normal tricuspid valve. Trace to mild tricuspid regurgitation. Pulmonic Valve Structurally normal pulmonic valve. Trace pulmonic regurgitation. Pericardium Normal pericardium. No pericardial effusion. Aorta Normal size aortic root and proximal ascending aorta. CONCLUSIONS Left ventricular ejection fraction 25-30% Mild increased left ventricular wall thickness Mild to moderately dilated left atrium Trace to mild tricuspid regurgitation Previewed by: Dr. Yordan Locke DO (Electronically Signed) Final Date: 14 November 2022 12:44
--- NOTE | 2022-11-14 12:53 | P.PN ---
Subjective Progress Note Date: 11/14/22 patient is a 82-year-old gentleman with past medical history significant for hypertension brought to the hospital because of left-sided weakness. Patient stated that he was out shopping when after returning home he started feeling unwell he went down to sit on the bed and noted that he started developing left- sided weakness involving both his arm and leg, there was no evidence of any slurred speech, no pain of any facial droop. Patient called EMS and was brought to the ER. The patient was worked up in the ER, his weakness had improved, NIH improved to 1. Initial lab work done in the ER showed WBC 8.2, hemoglobin 14.4, platelet count 128, sodium 135, potassium 4.4, BUN 29, creatinine 1.11, CT brain negative for any acute intracranial process CT angiogram head and neck showed greater than 70% stenosis of the left proximal internal carotid artery and 50%-70% stenosis of right proximal internal carotid artery Case was discussed by ER with the monument stonecutter stroke team, patient was not a candidate for any TPA, they recommended inpatient admission with consult to n eurology On discussion with patient's , patient still having left-sided leg weakness, status left upper extremity weakness has improved. Denies any slurred speech. 11/14. Patient seen and examined. States weakness of left lower extremity is improving REVIEW OF SYSTEMS: CONSTITUTIONAL: No fever, no malaise,. CARDIOVASCULAR: No chest pain, no palpitations, no syncope. PULMONARY: No shortness of breath, no cough, GASTROINTESTINAL: No diarrhea, no nausea, no vomiting, no abdominal pain. NEUROLOGICAL: No headaches, no weakness, PHYSICAL EXAMINATION: GENERAL: The patient is alert and oriented x3, not in any acute distress. Well developed, well nourished. HEENT: Pupils are round and equally reacting to light. EOMI. No scleral icterus. No conjunctival pallor. Normocephalic, atraumatic. No pharyngeal erythema. No thyromegaly. CARDIOVASCULAR: S1 and S2 present. No murmurs, rubs, or gallops. PULMONARY: Chest is clear to auscultation, no wheezing or crackles. ABDOMEN: Soft, nontender, nondistended, normoactive bowel sounds. No palpable organomegaly. MUSCULOSKELETAL: No joint swelling or deformity. EXTREMITIES: No cyanosis, clubbing, or pedal edema. NEUROLOGICAL: Gross neurological examination did not reveal any focal deficits. Muscle strength is 4 x 5 in left lower extremity, 5 x 5 in rest SKIN: No rashes. Assessment and plan Acute CVA Symptomatic right ICA A symptomatic left ICA of greater than 70% Hypertension Plan; Monitor vital signs Monitor CBC Monitor CMP Continue neuro checks 2-D echo ordered Ultrasound of carotids showed extensive atherosclerotic plaque with findings consistent of 50-69% stenosis of left ICA MRI brain showed scattered right CVA foci within the right srivastava radiata and right centrum semiovale involving the posterior right frontal lobe and parietal region Continue aspirin , Plavix and Lipitor Follow-up on PTOT recommendations Follow-up on neurology recommendations Follow-up on vascular surgery recommendations DVT prophylaxis: Objective - Vital Signs Vital signs: Vital Signs Temp 98.1 F 11/14/22 04:00 Pulse 76 11/14/22 04:00 Resp 18 11/14/22 04:00 BP 145/76 11/14/22 04:00 Pulse Ox 96 11/14/22 04:00 FiO2 Intake & Output 11/13/22 11/14/22 11/14/22 18:59 06:59 18:59 Intake Total 200 540 180 Output Total 650 Balance 200 -110 180 Weight 98.6 kg Intake: Oral 200 540 180 Output: Urine 650 Other: Voiding Method Bedside Commode Bedside Commode # Voids 2 2 - Labs CBC & Chem 7: 11/14/22 12:11 11/12/22 16:21 Labs: Abnormal Lab Results - Last 24 Hours (Table) 11/12/22 11/13/22 Range/Units 16:21 12:52 Cholesterol 206.00 H (0.00-200.00) mg/dL LDL Cholesterol, Calc 145.4 H (0.0-131.0) mg/dL HDL Cholesterol 31.00 L (40.00-60.00) mg/dL TSH 4.820 H (0.465-4.680) mIU/L
[2022-11-14 13:11] LABS: ALT 20 U/L (4-49); AST 31 U/L (17-59); African American GFR (CKD) 83 (>60 ml/min/1.73 sqM); Albumin 4.2 g/dL (3.5-5.0); Alkaline Phosphatase 70 U/L (38-126); Anion Gap 10 mmol/L; Blood Urea Nitrogen 21 mg/dL (9-20); Calcium 9.2 mg/dL (8.4-10.2); Carbon Dioxide 23 mmol/L (22-30); Chloride 103 mmol/L (98-107); Glucose 102 mg/dL (74-99); Non-African American GFR(CKD) 72 (>60 ml/min/1.73 sqM); Potassium 5.1 mmol/L (3.5-5.1); Sodium 136 mmol/L (137-145); Total Bilirubin 0.6 mg/dL (0.2-1.3); Total Protein 7.4 g/dL (6.3-8.2)
--- NOTE | 2022-11-14 15:02 | P.PN ---
Subjective Progress Note Date: 10/25/22 The patient is seen at bedside and feels he is doing much better. He feels he is lifting the left side much better. Objective - Vital Signs Vital signs: Vital Signs Temp 97.9 F 11/14/22 09:30 Pulse 81 11/14/22 09:30 Resp 16 11/14/22 09:30 BP 132/61 11/14/22 09:30 Pulse Ox 96 11/14/22 09:30 FiO2 Intake & Output 11/13/22 11/14/22 11/14/22 18:59 06:59 18:59 Intake Total 200 540 510 Output Total 650 Balance 200 -110 510 Weight 98.6 kg Intake: Oral 200 540 510 Output: Urine 650 Other: Voiding Method Bedside Commode Bedside Commode Bedside Commode # Voids 2 2 - Exam GENERAL: The patient is lying in bed and is not in acute distress. NEUROLOGICAL: Higher mental function: The patient is awake, alert, oriented to self, place and time. Patient is following commands. No aphasia and no neglect. Cranial nerves: The pupils are round, equal and reactive to light. Left eye ptosis (old). Visual saini are full to confrontation throughout. Extraocular movement is intact no nystagmus is noted. Facial sensation is normal to touch throughout. Left lower facial droop. Hearing is moderately decreased bilaterally to hand rub. Tongue is midline and moved [id number] without any difficulty. Mild dysarthria is noted. Shoulder shrug is normal bilaterally. Motor: The strength is 4+ over the left upper and lower. Otherwise the right side is 5/5. Normal bulk. Cerebellum: Normal finger to nose bilaterally. Sensation: Sensation is normal to touch throughout. Reflexes (right/left): 1+ throughout. Plantars are mute bilaterally. Some of the work-up consisted of: Lipid panel: TG 148, cholestrol 206, LDL 145, HDL 31 TSH: 4.82 and free T4 1.01 CT of the head is reported as no acute intracranial process. CT angiography of the head and neck is reported as overall findings similar to 2020. Greater than 70% stenosis in the left proximal internal carotid artery and 5070% stenosis of the right proximal internal carotid artery. At least 50% stenosis of the origin of the left vertebral artery. No evidence of dissection of the cervical internal carotid artery or vertebral artery. No evidence of intracranial high-grade stenosis or intracranial aneurysm. Carotid duplex: Extensive athersclerotic plaque with finding suggestive approximately 50-69% stenosis involving proximal left ICA. MRI Brain: Scattere right CVA foci within right srivastava radiata and right centrum semiovale involving the posterior right frontal lobe and parietal region. I agree with report. 2D Echo: Reported as left ventricular ejection fraction 25-30%. Mild increased left ventricular wall thickness. Mild to moderately dilated left atrium. Trace to mild tricuspid regurgitation. - Labs CBC & Chem 7: 11/14/22 12:11 11/14/22 12:11 Labs: Abnormal Lab Results - Last 24 Hours (Table) 11/12/22 11/14/22 Range/Units 16:21 12:11 Sodium 136 L (137-145) mmol/L BUN 21 H (9-20) mg/dL Glucose 102 H (74-99) mg/dL Cholesterol 206.00 H (0.00-200.00) mg/dL LDL Cholesterol, Calc 145.4 H (0.0-131.0) mg/dL HDL Cholesterol 31.00 L (40.00-60.00) mg/dL Assessment and Plan Assessment: This is an 82-year-old gentleman who presented to our facility on 11/12/2022 because of the sudden onset left-sided weakness. It seems in the ED he had improvement of his symptoms per the ED and his NIH was a 1 so no IV TPA was given. Currently on examination he still has significant left-sided weakness on the left lower with mild weakness of left upper as well as facial and the dysarthria. Acute ischemic stroke (right srivastava radiata, centrum semiovalve involving right frontal/parietal lobe). Etiology probable due to symptomatic right ICA (50-70% on CTA)--today having improvement in moving the left side. Symptomatic right ICA (discordant where CTA 50-70% while carotid is not significant). Per vascular surgery team is significant stenosis. Asymptomatic left ICA of greater than 70% Dyslipidemia Hypertension History of coronary artery disease status post stent Plan: Continue aspirin 325mg daily and Plavix 75mg daily (he was on ASA 81mg daily). Continue Lipitor 40 mg daily at bedtime for secondary stroke prophylaxis, goal of LDL <70 in stroke. Vascular surgery team is on board and they feel the right ICA is symptomatic and planning of surgery and pending date. Continue neuro checks Cardiac monitoring PT OT and MAIL LIST PROCESSOR are consulted Keep the blood pressure permissive for 24 hours. Treatment of blood pressure if the systolic is more than 180 We'll defer the rest of the medical management to the primary team and other specialist For DVT prophylaxis On subcu heparin 5000 units every 12 hours The plan discussed with the patient and his is at bedside. Also discussed with vascular surgery N.P. Time with Patient: Less than 30
[2022-11-14] MEDS: HYDROcodone/APAP 7.5-325MG 1 EACH TAB PO PRN (20:26)
[2022-11-14] MEDS: DOXAZOSIN 4 MG TAB PO SCH (20:26)
[2022-11-14] MEDS: ATORVASTATIN 40 MG TAB PO SCH (20:26)
[2022-11-14] MEDS: SODIUM CHLORIDE 0.9% 1,000 ML IV SCH (21:29)
[2022-11-15] MEDS: LOSARTAN 50 MG TAB PO SCH (08:57)
[2022-11-15] MEDS: HEPARIN SODIUM,PORCINE/PF 5,000 UNIT/0.5 ML SYRINGE SQ SCH ×2 (08:59→20:09)
[2022-11-15] MEDS: HYDROcodone/APAP 7.5-325MG 1 EACH TAB PO PRN ×2 (08:59→20:08)
[2022-11-15] MEDS: DOCUSATE 100 MG CAP PO SCH ×2 (09:00→16:39)
[2022-11-15] MEDS: CLOPIDOGREL 75 MG TAB PO SCH (09:00)
[2022-11-15] MEDS: FUROSEMIDE 40 MG TAB PO SCH (09:00)
[2022-11-15] MEDS: FAMOTIDINE 20 MG TAB PO SCH ×2 (09:00→20:08)
[2022-11-15] MEDS: TAMSULOSIN 0.4 MG CAP.ER.24H PO SCH (09:00)
[2022-11-15] MEDS: ASPIRIN 325 MG TAB PO SCH (09:00)
[2022-11-15] MEDS: prednisoLONE ACETATE 1% OPHTH DROPS 5 ML BTL LEFT EYE SCH (09:01)
[2022-11-15] MEDS: carvediloL 6.25 MG TAB PO SCH ×2 (09:05→16:39)
[2022-11-15 09:42] LABS: ALT 19 U/L (4-49); AST 22 U/L (17-59); African American GFR (CKD) 81 (>60 ml/min/1.73 sqM); Albumin 4.1 g/dL (3.5-5.0); Alkaline Phosphatase 74 U/L (38-126); Anion Gap 10 mmol/L; Blood Urea Nitrogen 22 mg/dL (9-20); Calcium 9.2 mg/dL (8.4-10.2); Carbon Dioxide 24 mmol/L (22-30); Chloride 101 mmol/L (98-107); Glucose 99 mg/dL (74-99); Non-African American GFR(CKD) 70 (>60 ml/min/1.73 sqM); Potassium 4.3 mmol/L (3.5-5.1); Sodium 135 mmol/L (137-145); Total Bilirubin 0.6 mg/dL (0.2-1.3); Total Protein 7.1 g/dL (6.3-8.2)
[2022-11-15 09:52] LABS: Basophils % (A) 0 %; Eosinophils # (A) 0.2 k/uL (0-0.7); Eosinophils % (A) 3 %; HCT 44.7 % (39.0-53.0); HGB 14.3 gm/dL (13.0-17.5); Lymphocytes % (A) 37 %; MCH 27.5 pg (25.0-35.0); Mean Platelet Volume 8.8; Monocytes # (A) 0.3 k/uL (0-1.0); Monocytes % (A) 5 %; Neutrophils # (A) 2.9 k/uL (1.3-7.7); Neutrophils % (A) 53 %; Platelet Count 141 k/uL (150-450); RBC 5.19 m/uL (4.30-5.90); RDW 14.2 % (11.5-15.5); WBC 5.5 k/uL (3.8-10.6)
--- NOTE | 2022-11-15 10:20 | P.CRDCN ---
History of Present Illness Consult date: 11/15/22 History of present illness: HISTORY OF PRESENT ILLNESS: This is an 82-year old male patient of Dr. RIK Ritterwith a past medical history significant for hypertension hyperlipidemia, chronic vertigo, and coronary disease. We have been asked to see the patient in consultation for surgical clearance for TCAR. Patient presented to the hospital with left-sided weakness and was positive for CVA. He was also found to have symptomatic right ICA and vascular surgery has evaluated the patient with plan for surgical intervention soon. He has been started on Plavix and aspirin as well as statin. Patient states he continues to have some residual weakness on the left side. He denies having any chest pain or shortness of breath. Over the last couple of weeks, with activity he denies having any chest pain or shortness of breath. He denies any orthopnea no PND. EKG sinus rhythm with left bundle branch block WBC 5.5, U Ac 14.3, platelet count 141. Sodium 135, potassium 4.3, BUN 22 and creatinine 0.99. Liver function tests are normal. TSH 4.82 and free T4 is normal at 1.01. Troponins negative 3. Echocardiogram reveals EF of 25-30% with mild increased left ventricular wall thickness. Mild to moderate dilated left atrium, trace to mild tricuspid regurgitation. Current home cardiac medications include aspirin 81 mg daily, Lasix 40 mg daily, losartan 50 mg daily, metoprolol tartrate 25 mg twice daily, Nitrostat as needed Cardiac catheterization 08/2015 in the setting of a non-ST CA revealed subtotal occlusion of the circumflex distal to the previous stent placed in May. 45% stenosis of the dominant RCA, 45% mid LAD lesion underwent PCI stenting of the circumflex. Echocardiogram 10/2020 revealed EF 52% with inferior wall hypokinesia. Mild kelly ral and tricuspid regurgitation. REVIEW OF SYSTEMS: At the time of my exam: CONSTITUTIONAL: Denies fever or chills. Left-sided weakness HEENT: Denies blurred vision, vision changes, or eye pain. Denies hemoptysis CARDIOVASCULAR: Denies chest pain, orthopnea, PND or palpitations RESPIRATORY: No shortness of breath. GASTROINTESTINAL: Denies abdominal pain. Denies nausea or vomiting. HEMATOLOGIC: Denies bleeding disorders. GENITOURINARY: Denies any blood in urine. SKIN: Denies pruitis. Denies rash. PHYSICAL EXAM: VITAL SIGNS: Reviewed. Blood pressure readings have been elevated [id number] GENERAL: Well-developed in no acute distress. HEENT: Head is normocephalic. Pupils are equal, round. Sclerae anicteric. Mucous membranes of the mouth are moist. Neck supple. No JVD or thyromegaly LUNGS: Respirations even and unlabored. Lungs essentially clear to auscultation bilaterally. HEART: Regular rate and rhythm. S1 and S2 heard. ABDOMEN: Soft. Nondistended. Nontender. EXTREMITIES: Normal range of motion. No clubbing or cyanosis. Peripheral pulses intact. No lower extremity edema NEUROLOGIC: Awake and alert. Oriented x 3. ASSESSMENT: CVA Internal carotid artery stenosis Coronary artery disease with previous stent placement Ischemic cardiomyopathy, EF 45% Hypertension Hyperlipidemia Carotid stenosis PLAN: Decrease aspirin to 81 mg daily Discontinue metoprolol Start patient on Coreg 6.25 mg twice daily for better blood pressure control Continue losartan at 50 mg daily Monitor blood pressure closely. Patient is cleared for surgical intervention as he is noted to be a at high risk. Recommend that vascular proceed with surgical intervention on this hospitalization so that his cardiomyopathy can be closely monitored as we will need to maximize medical therapy. Thank you kindly for this consultation Nurse practitioner note has been reviewed by physician. Signing provider agrees with the documented findings, assessment, and plan of care. Past Medical History Past Medical History: Coronary Artery Disease (CAD), Heart Failure, CVA/TIA, GERD/Reflux, Hyperlipidemia, Hypertension, Myocardial Infarction (CA), Musculoskeletal Disorder, Osteoarthritis (OA), Prostate Disorder, Thyroid Disorder Additional Past Medical History / Comment(s): Lumbar disc disease, HERNIATED DISC IN BACK. Diverticular disease with diverticulosis, BPH, CA X4, unknown dates Last Myocardial Infarction Date:: UNK History of Any Multi-Drug Resistant Organisms: None Reported Past Surgical History: Adenoidectomy, Heart Catheterization With Stent, Joint Replacement, Tonsillectomy Additional Past Surgical History / Comment(s): LEFT/RIGHT KNEE REPLACMENT. Colonoscopy with polypectomy, epidural steroid injections. Past Anesthesia/Blood Transfusion Reactions: No Reported Reaction Date of Last Stent Placement:: UNK Past Psychological History: No Psychological Hx Reported Smoking Status: Former smoker Past Alcohol Use History: Rare Additional Past Alcohol Use History / Comment(s): Quit smoking in 1966. Past Drug Use History: None Reported - Past Family History Sister(s) Family Medical History: Cancer Additional Family Medical History / Comment(s): Pancreatic cancer. Father History Unknown: Yes Family Medical History: Cancer Mother History Unknown: Yes Family Medical History: Congestive Heart Failure (CHF) Additional Family Medical History / Comment(s): AT AGE 94. Medications and Allergies Home Medications Medication Instructions Recorded Confirmed Type Metoprolol Tartrate 25 mg PO BID 06/02/15 11/12/22 History Terazosin HCl 5 mg PO HS 06/02/15 11/12/22 History Nitroglycerin Sl Tabs [Nitrostat] 0.4 mg SUBLINGUAL Q5M PRN #25 tab 06/04/15 11/12/22 Rx Aspirin 81 mg PO DAILY 09/19/15 11/12/22 History Prednisolone Acetate/Pf 1 drop LEFT EYE DAILY 03/20/20 11/12/22 History [Prednisolone Acet 1% Eye Drop] Tamsulosin [Flomax] 0.4 mg PO DAILY 03/20/20 11/12/22 History Baclofen 5 - 10 mg PO BID PRN 11/12/22 11/12/22 History Furosemide [Lasix] 40 mg PO DAILY 11/12/22 11/12/22 History HYDROcodone/APAP 7.5-325MG [[place] 1 tab PO Q8H PRN 11/12/22 11/12/22 History 7.5-325] Losartan [Cozaar] 50 mg PO DAILY 11/12/22 11/12/22 History Allergies Allergy/AdvReac Type Severity Reaction Status Date / Time No Known Allergies Allergy Verified 11/12/22 18:57 Physical Exam Vitals: Vital Signs Temp Pulse Resp BP Pulse Ox 11/15/22 07:44 98 11/15/22 04:00 72 17 149/72 98 11/14/22 23:39 97.8 F 76 18 129/58 97 11/14/22 20:00 98.1 F 76 18 169/91 97 11/14/22 16:10 98.3 F 77 18 153/87 98 11/14/22 12:00 97.9 F 74 16 150/72 97 11/14/22 09:30 97.9 F 81 16 132/61 96 Intake and Output 11/14/22 11/15/22 11/15/22 22:59 06:59 14:59 Intake Total 838 Output Total 700 Balance 838 -700 Intake: Oral 838 Output: Urine 700 Other: Voiding Method Bedside Commode Bedside Commode # Voids 3 Results 11/15/22 08:21 11/15/22 08:21 Cardiac Enzymes 11/14/22 Range/Units 12:11 AST 31 (17-59) U/L CBC 11/14/22 Range/Units 12:11 WBC 5.8 (3.8-10.6) k/uL RBC 5.22 (4.30-5.90) m/uL Hgb 14.0 (13.0-17.5) gm/dL Hct 44.8 (39.0-53.0) % Plt Count 155 (150-450) k/uL Comprehensive Metabolic Panel 11/14/22 Range/Units 12:11 Sodium 136 L (137-145) mmol/L Potassium 5.1 (3.5-5.1) mmol/L Chloride 103 (98-107) mmol/L Carbon Dioxide 23 (22-30) mmol/L BUN 21 H (9-20) mg/dL Creatinine 0.97 (0.66-1.25) mg/dL Glucose 102 H (74-99) mg/dL Calcium 9.2 (8.4-10.2) mg/dL AST 31 (17-59) U/L ALT 20 (4-49) U/L Alkaline Phosphatase 70 (38-126) U/L Total Protein 7.4 (6.3-8.2) g/dL Albumin 4.2 (3.5-5.0) g/dL Current Medications Generic Name Dose Route Start Last Admin Trade Name Poliq PRN Reason Stop Dose Admin Hydrocodone Bitart/Acetaminophen 1 each 11/12/22 19:09 11/14/22 20:26 Hydrocodone/Apap 7.5-325mg 1 Each Tab PO 1 each Q8H PRN Administration Pain Aspirin 325 mg 11/13/22 09:00 11/14/22 09:35 Aspirin 325 Mg Tab PO 325 mg DAILY ROSEANNA Administration Atorvastatin Calcium 40 mg 11/13/22 21:00 11/14/22 20:26 Atorvastatin 40 Mg Tab PO 40 mg HS ROSEANNA Administration Clopidogrel Bisulfate 75 mg 11/14/22 09:00 11/14/22 09:35 Clopidogrel 75 Mg Tab PO 75 mg DAILY ROSEANNA Administration Docusate Sodium 100 mg 11/13/22 00:00 11/14/22 23:38 Docusate 100 Mg Cap PO 100 mg Q8HR ROSEANNA Administration Doxazosin Mesylate 4 mg 11/12/22 21:00 11/14/22 20:26 Doxazosin 4 Mg Tab PO 4 mg HS ROSEANNA Administration Famotidine 20 mg 11/12/22 21:00 11/14/22 20:26 Famotidine 20 Mg Tab PO 20 mg BID ROSEANNA Administration Furosemide 40 mg 11/14/22 09:00 11/14/22 09:35 Furosemide 40 Mg Tab PO 40 mg DAILY ROSEANNA Administration Heparin Sodium (Porcine) 5,000 unit 11/13/22 21:00 11/14/22 20:26 Heparin Sodium,Porcine/Pf 5,000 Unit/0.5 Ml Syringe SQ 5,000 unit Q12HR ROSEANNA Administration Sodium Chloride 1,000 mls @ 20 mls/hr 11/12/22 18:15 11/14/22 21:29 Saline 0.9% IV Not Given .Q24H ROSEANNA Losartan Potassium 50 mg 11/13/22 09:00 11/14/22 09:35 Losartan 50 Mg Tab PO 50 mg DAILY ROSEANNA Administration Metoprolol Tartrate 25 mg 11/12/22 21:00 11/14/22 20:26 Metoprolol Tartrate 25 Mg Tab PO 25 mg BID ROSEANNA Administration Nitroglycerin 0.4 mg 11/12/22 18:04 Nitroglycerin Sl Tabs 0.4 Mg Tab SUBLINGUAL Q5M PRN Chest Pain Prednisolone Acetate 1 drops 11/13/22 09:00 11/14/22 09:36 Prednisolone Acetate 1% Ophth Drops 5 Ml Btl LEFT EYE 1 drops DAILY ROSEANNA Administration Tamsulosin HCl 0.4 mg 11/13/22 09:00 11/14/22 09:35 Tamsulosin 0.4 Mg Cap.Er.24h PO 0.4 mg DAILY ROSEANNA Administration Intake and Output 11/14/22 11/15/22 11/15/22 22:59 06:59 14:59 Intake Total 838 Output Total 700 Balance 838 -700 Intake: Oral 838 Output: Urine 700 Other: Voiding Method Bedside Commode Bedside Commode # Voids 3 11/14/22 12:11 11/14/22 12:11
--- NOTE | 2022-11-15 12:11 | P.PN ---
Subjective Progress Note Date: 11/15/22 Principal diagnosis: Carotid stenosis Patient seen and examined today sitting up in a bedside chair. He states he is feeling much better today. Continues to gain strength in the left lower extremity. Cardiology was consulted for clearance for surgical intervention for right internal carotid artery stenosis. They recommended decreasing aspirin 81 mg patient started on Coreg 6.2 mg twice a day, discontinue metoprolol and continued patient's losartan 50 mg daily. Patient was cleared for surgical intervention to be noted as high risk, and they are recommending proceeding with surgical intervention on his hospitalization so that patient's cardiomyopathy can be closely monitored as well as need to maximize medical therapy. Objective - Vital Signs Vital signs: Vital Signs Temp 98.5 F 11/15/22 08:00 Pulse 85 11/15/22 08:00 Resp 18 11/15/22 08:00 BP 138/77 11/15/22 08:00 Pulse Ox 97 11/15/22 08:00 FiO2 Intake & Output 11/14/22 11/15/22 11/15/22 18:59 06:59 18:59 Intake Total 1348 118 Output Total 700 Balance 1348 -700 118 Intake: Oral 1348 118 Output: Urine 700 Other: Voiding Method Bedside Commode Bedside Commode # Voids 3 - Exam General appearance: The patient is alert, oriented, appears in no acute distress. HET: Head is normocephalic and atraumatic. Pupils are equal and reactive. Neck: Supple. No bruit. Heart: Regular. Lungs: Equal expansion, normal respiratory effort. Abdomen: Soft, nontender, nondistended. Extremities: Normal skin color and turgor. Palpable bilateral radial and DP pulses. Neurological: Alert and oriented 3. Facial symmetry, speech is fluent. Bilateral upper extremity strength normal, mild left lower extremity weakness, improved from yesterday. - Labs CBC & Chem 7: 11/15/22 08:21 11/15/22 08:21 Labs: Abnormal Lab Results - Last 24 Hours (Table) 11/14/22 11/15/22 11/15/22 Range/Units 12:11 08:21 08:21 Plt Count 141 L (150-450) k/uL Sodium 136 L 135 L (137-145) mmol/L BUN 21 H 22 H (9-20) mg/dL Glucose 102 H (74-99) mg/dL Assessment and Plan Assessment: 1. MRI brain reports Scattered right CVA foci within the right srivastava radiata and right centrum semielemental involving the posterior right frontal lobe and parietal region with symptoms of left-sided weakness 2. Right-sided symptomatic ICA stenosis 50-70% per CT angiogram head and neck 3. Greater than 70% left ICA stenosis per CT angiogram head and neck 4. Coronary artery disease with history of myocardial infarction and cardiac stents 5. Heart failure, EF 25-30% 6. Hypertension and hyperlipidemia 7. BPH 8. Thyroid disorder Plan: 1. Continue symptomatic and supportive care 2. Continue Plavix, aspirin, atorvastatin as ordered 3. Carotid duplex ordered and reviewed, CTA head and neck findings are more accurate 4. PT/OT/ST on consult 5. Consult to cardiology completed, patient is cleared to proceed with carotid surgery however they recommend surgical intervention to be done during this hospitalization to monitor patient's cardiomyopathy, and maximize medical therapy 6. Tentative plan for right trans-carotid endarterectomy on 11/19/2022 patient good surgical candidate, otherwise will proceed with right carotid endarterectomy Carotid duplex reported no significant stenosis in the right ICA, left 50-69% stenosis of left proximal internal carotid artery. Carotid duplex as well as a CT angiogram head and neck imaging was reviewed by Dr. Esparza, he agrees with CTA head and neck right ICA closer to 50-70% stenosis. Per neurology's notes they believe patient has symptomatic right internal carotid artery stenosis, and will need surgical intervention. Surgical options and risks and benefits discussed with patient for trans-carotid artery revascularization versus right carotid endarterectomy. Disk of CT angiogram head and neck will be reviewed by vendor to determine if patient is a candidate for trans-carotid artery revascularization. The patient will need to be on Plavix for minimum of 5 days prior to procedure. It was discussed with patient recommendations from cardiology that patient have carotid surgery during this hospitalization with close monitoring for cardiomyopathy, with that being said patient needs to be on Plavix at least 5 days prior to surgical intervention and would tentatively be scheduled on 11/19/2022 patient at this time verbalizing that he does not want to stay in the hospital and would like to be discharged with outpatient follow-up next week with vascular surgery to then schedule right carotid surgery. It was also discussed with patient that if he is discharged he could be at increased risk for another stroke, as cardiology is concern for cardiomyopathy and blood pressure management. Patient is verbalizing unde rstanding. Thank you for this consultation, we will continue to follow. The impression and plan of care has been dictated as directed. Dr. Potts I performed a history and examination of this patient, discussed the same with the dictator. I agree with the dictator's note ,documented as a scribe. Any additional findings or plans will be noted.
--- NOTE | 2022-11-15 13:13 | P.PN ---
Subjective Progress Note Date: 11/15/22 patient is a 82-year-old gentleman with past medical history significant for hypertension brought to the hospital because of left-sided weakness. Patient stated that he was out shopping when after returning home he started feeling unwell he went down to sit on the bed and noted that he started developing left- sided weakness involving both his arm and leg, there was no evidence of any slurred speech, no pain of any facial droop. Patient called EMS and was brought to the ER. The patient was worked up in the ER, his weakness had improved, NIH improved to 1. Initial lab work done in the ER showed WBC 8.2, hemoglobin 14.4, platelet count 128, sodium 135, potassium 4.4, BUN 29, creatinine 1.11, CT brain negative for any acute intracranial process CT angiogram head and neck showed greater than 70% stenosis of the left proximal internal carotid artery and 50%-70% stenosis of right proximal internal carotid artery Case was discussed by ER with the refrigeration houseman stroke team, patient was not a candidate for any TPA, they recommended inpatient admission with consult to n eurology On discussion with patient's , patient still having left-sided leg weakness, status left upper extremity weakness has improved. Denies any slurred speech. 11/14. Patient seen and examined. States weakness of left lower extremity is improving 11/15. Patient seen and examined. Patient states weakness of left lower extremity has improved a lot. Working with PT and OT REVIEW OF SYSTEMS: CONSTITUTIONAL: No fever, no malaise,. CARDIOVASCULAR: No chest pain, no palpitations, no syncope. PULMONARY: No shortness of breath, no cough, GASTROINTESTINAL: No diarrhea, no nausea, no vomiting, no abdominal pain. NEUROLOGICAL: No headaches, no weakness, PHYSICAL EXAMINATION: GENERAL: The patient is alert and oriented x3, not in any acute distress. Well developed, well nourished. HEENT: Pupils are round and equally reacting to light. EOMI. No scleral icterus. No conjunctival pallor. Normocephalic, atraumatic. No pharyngeal erythema. No thyromegaly. CARDIOVASCULAR: S1 and S2 present. No murmurs, rubs, or gallops. PULMONARY: Chest is clear to auscultation, no wheezing or crackles. ABDOMEN: Soft, nontender, nondistended, normoactive bowel sounds. No palpable organomegaly. MUSCULOSKELETAL: No joint swelling or deformity. EXTREMITIES: No cyanosis, clubbing, or pedal edema. NEUROLOGICAL: Gross neurological examination did not reveal any focal deficits. Muscle strength is 4 x 5 in left lower extremity, 5 x 5 in rest SKIN: No rashes. Assessment and plan Acute CVA Symptomatic right ICA A symptomatic left ICA of greater than 70% Hypertension Ischemic cardiomyopathy Plan; Monitor vital signs Monitor CBC Monitor CMP Continue neuro checks Echocardiogram reveals EF of 25-30% with mild increased left ventricular wall thickness. Mild to moderate dilated left atrium, trace to mild tricuspid regurgitation. Ultrasound of carotids showed extensive atherosclerotic plaque with findings consistent of 50-69% stenosis of left ICA MRI brain showed scattered right CVA foci within the right srivastava radiata and right centrum semiovale involving the posterior right frontal lobe and parietal region Continue aspirin 325 per neurology , Plavix and Lipitor Follow-up on PT and OT recommendations Follow-up on neurology recommendations Cardiology evaluated the patient and recommended Start patient on Coreg 6.25 mg twice daily for better blood pressure control,Continue losartan at 50 mg daily.Patient is cleared for surgical intervention as he is noted to be a at high risk. Cardiology Recommend that vascular proceed with surgical intervention on this hospitalization so that his cardiomyopathy can be closely monitored as we will need to maximize medical therapy. Follow-up on vascular surgery recommendations, planning for endarterectomy for symptomatic right ICA DVT prophylaxis: Objective - Vital Signs Vital signs: Vital Signs Temp 98.5 F 11/15/22 08:00 Pulse 85 11/15/22 08:00 Resp 18 11/15/22 08:00 BP 138/77 11/15/22 08:00 Pulse Ox 97 11/15/22 08:00 FiO2 Intake & Output 11/14/22 11/15/22 11/15/22 18:59 06:59 18:59 Intake Total 1348 118 Output Total 700 Balance 1348 -700 118 Intake: Oral 1348 118 Output: Urine 700 Other: Voiding Method Bedside Commode Bedside Commode # Voids 3 - Labs CBC & Chem 7: 11/15/22 08:21 11/15/22 08:21 Labs: Abnormal Lab Results - Last 24 Hours (Table) 11/14/22 11/15/22 11/15/22 Range/Units 12:11 08:21 08:21 Plt Count 141 L (150-450) k/uL Sodium 136 L 135 L (137-145) mmol/L BUN 21 H 22 H (9-20) mg/dL Glucose 102 H (74-99) mg/dL
--- NOTE | 2022-11-15 16:20 | P.PN ---
Subjective Progress Note Date: 11/15/22 The patient is seen at bedside and feels he continues to be doing well. He denies of any new neurological issues. Objective - Vital Signs Vital signs: Vital Signs Temp 97.6 F 11/15/22 12:00 Pulse 84 11/15/22 12:00 Resp 20 11/15/22 12:00 BP 144/82 11/15/22 12:00 Pulse Ox 99 11/15/22 12:00 FiO2 Intake & Output 11/14/22 11/15/22 11/15/22 18:59 06:59 18:59 Intake Total 1348 236 Output Total 700 Balance 1348 -700 236 Intake: Oral 1348 236 Output: Urine 700 Other: Voiding Method Bedside Commode Bedside Commode # Voids 3 - Exam GENERAL: The patient is lying in bed and is not in acute distress. NEUROLOGICAL: Higher mental function: The patient is awake, alert, oriented to self, place and time. Patient is following commands. No aphasia and no neglect. Cranial nerves: The pupils are round, equal and reactive to light. Left eye ptosis (old). Visual saini are full to confrontation throughout. Extraocular movement is intact no nystagmus is noted. Facial sensation is normal to touch throughout. Left lower facial droop. Hearing is moderately decreased bilaterally to hand rub. Tongue is midline and moved [id number] without any difficulty. Mild dysarthria is noted. Shoulder shrug is normal bilaterally. Motor: The strength is 4+ to 5- over the left upper and lower. Otherwise the right side is 5/5. Normal bulk. Cerebellum: Normal finger to nose bilaterally. Sensation: Sensation is normal to touch throughout. Reflexes (right/left): 1+ throughout. Plantars are mute bilaterally. Some of the work-up consisted of: Lipid panel: TG 148, cholestrol 206, LDL 145, HDL 31 TSH: 4.82 and free T4 1.01 CT of the head is reported as no acute intracranial process. CT angiography of the head and neck is reported as overall findings similar to 2020. Greater than 70% stenosis in the left proximal internal carotid artery and 5070% stenosis of the right proximal internal carotid artery. At least 50% stenosis of the origin of the left vertebral artery. No evidence of dissection of the cervical internal carotid artery or vertebral artery. No evidence of intracranial high-grade stenosis or intracranial aneurysm. Carotid duplex: Extensive athersclerotic plaque with finding suggestive approximately 50-69% stenosis involving proximal left ICA. MRI Brain: Scattere right CVA foci within right srivastava radiata and right centrum semiovale involving the posterior right frontal lobe and parietal region. I agree with report. 2D Echo: Reported as left ventricular ejection fraction 25-30%. Mild increased left ventricular wall thickness. Mild to moderately dilated left atrium. Trace to mild tricuspid regurgitation. - Labs CBC & Chem 7: 11/15/22 08:21 11/15/22 08:21 Labs: Abnormal Lab Results - Last 24 Hours (Table) 11/13/22 11/15/22 11/15/22 Range/Units 12:52 08:21 08:21 Plt Count 141 L (150-450) k/uL Sodium 135 L (137-145) mmol/L BUN 22 H (9-20) mg/dL Hemoglobin A1c 6.2 H (<=6.0) % Assessment and Plan Assessment: This is an 82-year-old gentleman who presented to our facility on 11/12/2022 because of the sudden onset left-sided weakness. It seems in the ED he had improvement of his symptoms per the ED and his NIH was a 1 so no IV TPA was given. Currently on examination he still has significant left-sided weakness on the left lower with mild weakness of left upper as well as facial and the dysarthria. Acute ischemic stroke (right srivastava radiata, centrum semiovalve involving right frontal/parietal lobe). Etiology probable due to symptomatic right ICA (50-70% on CTA)-- having improvement in moving the left side for past two days Symptomatic right ICA (discordant where CTA 50-70% while carotid is not signifi cant). Per vascular surgery team is significant stenosis. Asymptomatic left ICA of greater than 70% Dyslipidemia Hypertension History of coronary artery disease status post stent Plan: Continue aspirin 325mg daily and Plavix 75mg daily (he was on ASA 81mg daily). Continue Lipitor 40 mg daily at bedtime for secondary stroke prophylaxis, goal of LDL <70 in stroke. Vascular surgery team is on board and they feel the right ICA is symptomatic and planning of surgery and pending date. Continue neuro checks Cardiac monitoring PT OT and FRONT END WEB DESIGNER are consulted We'll defer the rest of the medical management to the primary team and other specialist For DVT prophylaxis On subcu heparin 5000 units every 12 hours The plan discussed with the patient and vascular surgery team. Time with Patient: Less than 30
[2022-11-15] MEDS: SODIUM CHLORIDE 0.9% 1,000 ML IV SCH (20:07)
[2022-11-15] MEDS: ATORVASTATIN 40 MG TAB PO SCH (20:08)
[2022-11-15] MEDS: DOXAZOSIN 4 MG TAB PO SCH (20:08)
[2022-11-16] MEDS: DOCUSATE 100 MG CAP PO SCH ×4 (00:30→23:35)
[2022-11-16] MEDS: carvediloL 6.25 MG TAB PO SCH ×2 (06:37→16:45)
[2022-11-16 08:22] LABS: Basophils % (A) 0 %; Eosinophils # (A) 0.3 k/uL (0-0.7); Eosinophils % (A) 5 %; HCT 43.6 % (39.0-53.0); HGB 13.9 gm/dL (13.0-17.5); Lymphocytes % (A) 31 %; MCH 28.1 pg (25.0-35.0); MCV 88.1 fL (80.0-100.0); Mean Platelet Volume 8.3; Monocytes # (A) 0.3 k/uL (0-1.0); Monocytes % (A) 5 %; Neutrophils # (A) 3.8 k/uL (1.3-7.7); Neutrophils % (A) 58 %; Platelet Count 135 k/uL (150-450); RBC 4.95 m/uL (4.30-5.90); RDW 14.3 % (11.5-15.5); WBC 6.5 k/uL (3.8-10.6)
[2022-11-16] MEDS: prednisoLONE ACETATE 1% OPHTH DROPS 5 ML BTL LEFT EYE SCH (08:37)
[2022-11-16] MEDS: ASPIRIN 325 MG TAB PO SCH (08:37)
[2022-11-16] MEDS: TAMSULOSIN 0.4 MG CAP.ER.24H PO SCH (08:37)
[2022-11-16] MEDS: HEPARIN SODIUM,PORCINE/PF 5,000 UNIT/0.5 ML SYRINGE SQ SCH ×2 (08:37→19:54)
[2022-11-16] MEDS: LOSARTAN 50 MG TAB PO SCH (08:37)
[2022-11-16] MEDS: FUROSEMIDE 40 MG TAB PO SCH (08:37)
[2022-11-16] MEDS: FAMOTIDINE 20 MG TAB PO SCH ×2 (08:37→19:54)
[2022-11-16] MEDS: CLOPIDOGREL 75 MG TAB PO SCH (08:37)
[2022-11-16 08:47] LABS: ALT 19 U/L (4-49); AST 25 U/L (17-59); African American GFR (CKD) 74 (>60 ml/min/1.73 sqM); Albumin 3.8 g/dL (3.5-5.0); Alkaline Phosphatase 70 U/L (38-126); Anion Gap 7 mmol/L; Blood Urea Nitrogen 28 mg/dL (9-20); Calcium 8.8 mg/dL (8.4-10.2); Carbon Dioxide 24 mmol/L (22-30); Chloride 102 mmol/L (98-107); Glucose 120 mg/dL (74-99); Non-African American GFR(CKD) 64 (>60 ml/min/1.73 sqM); Potassium 4.3 mmol/L (3.5-5.1); Sodium 133 mmol/L (137-145); Total Bilirubin 0.7 mg/dL (0.2-1.3); Total Protein 6.8 g/dL (6.3-8.2)
--- NOTE | 2022-11-16 10:25 | P.PN ---
Subjective Progress Note Date: 11/16/22 HISTORY OF PRESENT ILLNESS: This is an 82-year old male patient of Dr. RIK Ritterwith a past medical history significant for hypertension hyperlipidemia, chronic vertigo, and coronary disease. We have been asked to see the patient in consultation for surgical clearance for TCAR. Patient presented to the hospital with left-sided weakness and was positive for CVA. He was also found to have symptomatic right ICA and vascular surgery has evaluated the patient with plan for surgical intervention soon. He has been started on Plavix and aspirin as well as statin. Patient states he continues to have some residual weakness on the left side. He denies having any chest pain or shortness of breath. Over the last couple of weeks, with activity he denies having any chest pain or shortness of breath. He denies any orthopnea no PND. EKG sinus rhythm with left bundle branch block WBC 5.5, U Ac 14.3, platelet count 141. Sodium 135, potassium 4.3, BUN 22 and creatinine 0.99. Liver function tests are normal. TSH 4.82 and free T4 is normal at 1.01. Troponins negative 3. Echocardiogram reveals EF of 25-30% with mild increased left ventricular wall thickness. Mild to moderate dilated left atrium, trace to mild tricuspid regurgitation. Current home cardiac medications include aspirin 81 mg daily, Lasix 40 mg daily, losartan 50 mg daily, metoprolol tartrate 25 mg twice daily, Nitrostat as needed Cardiac catheterization 08/2015 in the setting of a non-ST OR revealed subtotal occlusion of the circumflex distal to the previous stent placed in May. 45% stenosis of the dominant RCA, 45% mid LAD lesion underwent PCI stenting of the circumflex. Echocardiogram 10/2020 revealed EF 52% with inferior wall hypokinesia. Mild mitral and tricuspid regurgitation. 11/16 Patient is seen today in follow-up. Medications were changes were made yesterday to better address his hypertension. This morning blood pressure is 127/69, heart rate is in the 70s. Patient is scheduled for surgery with Dr. Potts on 11/19. Patient slept well last night. No chest pain, no shortness of breath. PHYSICAL EXAM: VITAL SIGNS: Reviewed. Blood pressure readings have been elevated [id number] GENERAL: Well-developed in no acute distress. HEENT: Head is normocephalic. Pupils are equal, round. Sclerae anicteric. Mucous membranes of the mouth are moist. LUNGS: Respirations even and unlabored. Lungs essentially clear to auscultation bilaterally. HEART: Regular rate and rhythm. S1 and S2 heard. ABDOMEN: Soft. Nondistended. Nontender. EXTREMITIES: Normal range of motion. No clubbing or cyanosis. Peripheral pulses intact. No lower extremity edema NEUROLOGIC: Awake and alert. Oriented x 3. ASSESSMENT: CVA Internal carotid artery stenosis Coronary artery disease with previous stent placement Ischemic cardiomyopathy, EF 45% Hypertension Hyperlipidemia Carotid stenosis PLAN: Continue aspirin to 81 mg daily, Coreg 6.25 mg twice daily, losartan at 50 mg daily Monitor blood pressure closely. Patient is cleared for surgical intervention as he is noted to be a at high risk. Recommend that vascular proceed with surgical intervention on this hospitalization so that his cardiomyopathy can be closely monitored as we will need to maximize medical therapy. Surgery is scheduled for 11/[address] Potts. Thank you kindly for this consultation Nurse practitioner note has been reviewed by physician. Signing provider agrees with the documented findings, assessment, and plan of care. Objective - Vital Signs Vital signs: Vital Signs Temp 97.9 F 11/15/22 23:23 Pulse 75 11/16/22 04:00 Resp 17 11/16/22 04:00 BP 127/69 11/16/22 04:00 Pulse Ox 96 11/16/22 07:41 FiO2 Intake & Output 11/15/22 11/16/22 11/16/22 18:59 06:59 18:59 Intake Total 604 Balance 604 Intake: Oral 604 Other: Voiding Method Toilet # Voids 3 - Labs CBC & Chem 7: 11/16/22 08:05 11/16/22 08:05 Labs: Abnormal Lab Results - Last 24 Hours (Table) 11/13/22 11/15/22 11/15/22 Range/Units 12:52 08:21 08:21 Plt Count 141 L (150-450) k/uL Sodium 135 L (137-145) mmol/L BUN 22 H (9-20) mg/dL Hemoglobin A1c 6.2 H (<=6.0) %
--- NOTE | 2022-11-16 11:25 | P.PN ---
Subjective Progress Note Date: 11/16/22 Principal diagnosis: Carotid stenosis Patient was seen and examined today in follow-up. He is sitting up at the bedside. He has been working with physical therapy and ambulating in the halls with assistance and walker. No new focal deficits. No acute changes through the night. Patient agreeable to stain the hospital through the weekend for planned right carotid surgical intervention on Saturday. Objective - Vital Signs Vital signs: Vital Signs Temp 98.4 F 11/16/22 08:35 Pulse 95 11/16/22 08:35 Resp 16 11/16/22 08:35 BP 135/81 11/16/22 08:35 Pulse Ox 98 11/16/22 08:35 FiO2 Intake & Output 11/15/22 11/16/22 11/16/22 18:59 06:59 18:59 Intake Total 604 180 Balance 604 180 Intake: Oral 604 180 Other: Voiding Method Toilet Toilet # Voids 3 - Exam General appearance: The patient is alert, oriented, appears in no acute distress. HET: Head is normocephalic and atraumatic. Pupils are equal and reactive. Neck: Supple. No bruit. Heart: Regular. Lungs: Equal expansion, normal respiratory effort. Abdomen: Soft, nontender, nondistended. Extremities: Normal skin color and turgor. Palpable bilateral radial and DP pulses. Neurological: Alert and oriented 3. Facial symmetry, speech is fluent. Bi lateral upper extremity strength normal, mild left lower extremity weakness, improved from yesterday. - Labs CBC & Chem 7: 11/16/22 08:05 11/16/22 08:05 Labs: Abnormal Lab Results - Last 24 Hours (Table) 11/13/22 11/16/22 11/16/22 Range/Units 12:52 08:05 08:05 Plt Count 135 L (150-450) k/uL Sodium 133 L (137-145) mmol/L BUN 28 H (9-20) mg/dL Glucose 120 H (74-99) mg/dL Hemoglobin A1c 6.2 H (<=6.0) % Assessment and Plan Assessment: 1. MRI brain reports Scattered right CVA foci within the right srivastava radiata and right centrum semielemental involving the posterior right frontal lobe and parietal region with symptoms of left-sided weakness 2. Right-sided symptomatic ICA stenosis 50-70% per CT angiogram head and neck 3. Greater than 70% left ICA stenosis per CT angiogram head and neck 4. Coronary artery disease with history of myocardial infarction and cardiac stents 5. Heart failure, EF 25-30% 6. Hypertension and hyperlipidemia 7. BPH 8. Thyroid disorder Plan: 1. Continue symptomatic and supportive care 2. Continue Plavix, aspirin, atorvastatin as ordered 3. Carotid duplex ordered and reviewed, CTA head and neck findings are more accurate 4. PT/OT/ST on consult 5. Consult to cardiology completed, patient is cleared to proceed with carotid surgery however they recommend surgical intervention to be done during this hospitalization to monitor patient's cardiomyopathy, and maximize medical therapy 6. Tentative plan for right trans-carotid endarterectomy on 11/19/2022 if patient good surgical candidate, otherwise will proceed with right carotid endarterectomy Carotid duplex reported no significant stenosis in the right ICA, left 50-69% stenosis of left proximal internal carotid artery. Carotid duplex as well as a CT angiogram head and neck imaging was reviewed by Dr. Esparza, he agrees with CTA head and neck right ICA closer to 50-70% stenosis. Per neurology's notes they believe patient has symptomatic right internal carotid artery stenosis, and will need surgical intervention. Surgical options and risks and benefits discussed with patient for trans-carotid artery revascularization versus right carotid endarterectomy. Disk of CT angiogram head and neck will be reviewed to determine if patient is a candidate for trans-carotid artery revascularization. The patient will need to be on Plavix for minimum of 5 days prior to procedure. It was discussed with patient recommendations from cardiology that patient have carotid surgery during this hospitalization with close monitoring for cardiomyopathy, with that being said patient needs to be on Plavix at least 5 d ays prior to surgical intervention and would tentatively be scheduled on 11/19/2022 patient at this time verbalizing that he does not want to stay in the hospital and would like to be discharged with outpatient follow-up next week with vascular surgery to then schedule right carotid surgery. It was also discussed with patient that if he is discharged he could be at increased risk for another stroke, as cardiology is concern for cardiomyopathy and blood pressure management. Patient is verbalizing understanding and agreeable to remain in the hospital until after surgical intervention for right carotid ICA stenosis. Thank you for this consultation, we will continue to follow. The impression and plan of care has been dictated as directed. Dr. Potts I performed a history and examination of this patient, discussed the same with the dictator. I agree with the dictator's note ,documented as a scribe. Any additional findings or plans will be noted.
--- NOTE | 2022-11-16 13:25 | P.PN ---
Subjective Progress Note Date: 11/16/22 patient is a 82-year-old gentleman with past medical history significant for hypertension brought to the hospital because of left-sided weakness. Patient stated that he was out shopping when after returning home he started feeling unwell he went down to sit on the bed and noted that he started developing left- sided weakness involving both his arm and leg, there was no evidence of any slurred speech, no pain of any facial droop. Patient called EMS and was brought to the ER. The patient was worked up in the ER, his weakness had improved, NIH improved to 1. Initial lab work done in the ER showed WBC 8.2, hemoglobin 14.4, platelet count 128, sodium 135, potassium 4.4, BUN 29, creatinine 1.11, CT brain negative for any acute intracranial process CT angiogram head and neck showed greater than 70% stenosis of the left proximal internal carotid artery and 50%-70% stenosis of right proximal internal carotid artery Case was discussed by ER with the hooker on stroke team, patient was not a candidate for any TPA, they recommended inpatient admission with consult to neurology On discussion with patient's , patient still having left-sided leg weakness, status left upper extremity weakness has improved. Denies any slurred speech. 11/14. Patient seen and examined. States weakness of left lower extremity is improving 11/15. Patient seen and examined. Patient states weakness of left lower ext remity has improved a lot. Working with PT and OT 11/16. Patient seen and examined. No acute issues overnight. REVIEW OF SYSTEMS: CONSTITUTIONAL: No fever, no malaise,. CARDIOVASCULAR: No chest pain, no palpitations, no syncope. PULMONARY: No shortness of breath, no cough, GASTROINTESTINAL: No diarrhea, no nausea, no vomiting, no abdominal pain. NEUROLOGICAL: No headaches, PHYSICAL EXAMINATION: GENERAL: The patient is alert and oriented x3, not in any acute distress. Well developed, well nourished. HEENT: Pupils are round and equally reacting to light. EOMI. No scleral icterus. No conjunctival pallor. Normocephalic, atraumatic. No pharyngeal erythema. No thyromegaly. CARDIOVASCULAR: S1 and S2 present. No murmurs, rubs, or gallops. PULMONARY: Chest is clear to auscultation, no wheezing or crackles. ABDOMEN: Soft, nontender, nondistended, normoactive bowel sounds. No palpable organomegaly. MUSCULOSKELETAL: No joint swelling or deformity. EXTREMITIES: No cyanosis, clubbing, or pedal edema. NEUROLOGICAL: Gross neurological examination did not reveal any focal deficits. Muscle strength is 4 x 5 in left lower extremity, 5 x 5 in rest SKIN: No rashes. Assessment and plan Acute CVA Symptomatic right ICA A symptomatic left ICA of greater than 70% Hypertension Ischemic cardiomyopathy Plan; Monitor vital signs Monitor CBC Monitor CMP Continue neuro checks Echocardiogram reveals EF of 25-30% with mild increased left ventricular wall thickness. Mild to moderate dilated left atrium, trace to mild tricuspid regurgitation. Ultrasound of carotids showed extensive atherosclerotic plaque with findings consistent of 50-69% stenosis of left ICA MRI brain showed scattered right CVA foci within the right rsivastava radiata and right centrum semiovale involving the posterior right frontal lobe and parietal region Continue aspirin 325 per neurology , Plavix Continue Lipitor 40 mg daily at bedtime for secondary stroke prophylaxis, goal of LDL <70 in stroke Follow-up on PT and OT recommendations Follow-up on neurology recommendations Cardiology evaluated the patient and recommended Start patient on Coreg 6.25 mg twice daily for better blood pressure control,Continue losartan at 50 mg daily.Patient is cleared for surgical intervention as he is noted to be a at high risk. Cardiology Recommend that vascular proceed with surgical intervent ion on this hospitalization so that his cardiomyopathy can be closely monitored as we will need to maximize medical therapy. Follow-up on vascular surgery recommendations, planning for endarterectomy for symptomatic right ICA on 11/19 DVT prophylaxis: Objective - Vital Signs Vital signs: Vital Signs Temp 98.4 F 11/16/22 08:35 Pulse 95 11/16/22 08:35 Resp 16 11/16/22 08:35 BP 135/81 11/16/22 08:35 Pulse Ox 98 11/16/22 08:35 FiO2 Intake & Output 11/15/22 11/16/22 11/16/22 18:59 06:59 18:59 Intake Total 604 180 Balance 604 180 Intake: Oral 604 180 Other: Voiding Method Toilet # Voids 3 - Labs CBC & Chem 7: 11/16/22 08:05 11/16/22 08:05 Labs: Abnormal Lab Results - Last 24 Hours (Table) 11/13/22 11/15/22 11/15/22 Range/Units 12:52 08:21 08:21 Plt Count 141 L (150-450) k/uL Sodium 135 L (137-145) mmol/L BUN 22 H (9-20) mg/dL Glucose (74-99) mg/dL Hemoglobin A1c 6.2 H (<=6.0) % 11/16/22 11/16/22 Range/Units 08:05 08:05 Plt Count 135 L (150-450) k/uL Sodium 133 L (137-145) mmol/L BUN 28 H (9-20) mg/dL Glucose 120 H (74-99) mg/dL Hemoglobin A1c (<=6.0) %
--- NOTE | 2022-11-16 14:57 | P.PN ---
Subjective Progress Note Date: 11/16/22 Patient is seen at bedside and feels about the same. Denies any new neurological issues. Objective - Vital Signs Vital signs: Vital Signs Temp 97.6 F 11/16/22 12:00 Pulse 61 11/16/22 12:00 Resp 16 11/16/22 12:00 BP 159/81 11/16/22 12:00 Pulse Ox 96 11/16/22 12:00 FiO2 Intake & Output 11/15/22 11/16/22 11/16/22 18:59 06:59 18:59 Intake Total 604 300 Balance 604 300 Intake: Oral 604 300 Other: Voiding Method Toilet Toilet # Voids 3 0 # Bowel Movements 0 - Exam GENERAL: The patient is lying in bed and is not in acute distress. NEUROLOGICAL: Higher mental function: The patient is awake, alert, oriented to self, place and time. Patient is following commands. No aphasia and no neglect. Cranial nerves: The pupils are round, equal and reactive to light. Left eye ptosis (old). Visual saini are full to confrontation throughout. Extraocular movement is intact no nystagmus is noted. Facial sensation is normal to touch throughout. Left lower facial droop. Hearing is moderately decreased bilaterally to hand rub. Tongue is midline and moved [id number] without any difficulty. Mild dysarthria is noted. Shoulder shrug is normal bilaterally. Motor: The strength is 4+ to 5- over the left upper and lower. Otherwise the right side is 5/5. Normal bulk. Cerebellum: Normal finger to nose bilaterally. Sensation: Sensation is normal to touch throughout. Reflexes (right/left): 1+ throughout. Plantars are mute bilaterally. Some of the work-up consisted of: Lipid panel: TG 148, cholestrol 206, LDL 145, HDL 31 TSH: 4.82 and free T4 1.01 CT of the head is reported as no acute intracranial process. CT angiography of the head and neck is reported as overall findings similar to 2020. Greater than 70% stenosis in the left proximal internal carotid artery and 5070% stenosis of the right proximal internal carotid artery. At least 50% stenosis of the origin of the left vertebral artery. No evidence of dissection of the cervical internal carotid artery or vertebral artery. No evidence of intracranial high-grade stenosis or intracranial aneurysm. Carotid duplex: Extensive athersclerotic plaque with finding suggestive approximately 50-69% stenosis involving proximal left ICA. MRI Brain: Scattere right CVA foci within right srivastava radiata and right centrum semiovale involving the posterior right frontal lobe and parietal region. I agree with report. 2D Echo: Reported as left ventricular ejection fraction 25-30%. Mild increased left ventricular wall thickness. Mild to moderately dilated left atrium. Trace to mild tricuspid regurgitation. - Labs CBC & Chem 7: 11/16/22 08:05 11/16/22 08:05 Labs: Abnormal Lab Results - Last 24 Hours (Table) 11/16/22 11/16/22 Range/Units 08:05 08:05 Plt Count 135 L (150-450) k/uL Sodium 133 L (137-145) mmol/L BUN 28 H (9-20) mg/dL Glucose 120 H (74-99) mg/dL Assessment and Plan Assessment: This is an 82-year-old gentleman who presented to our facility on 11/12/2022 because of the sudden onset left-sided weakness. It seems in the ED he had improvement of his symptoms per the ED and his NIH was a 1 so no IV TPA was given. Currently on examination he still has significant left-sided weakness on the left lower with mild weakness of left upper as well as facial and the dysarthria. Acute ischemic stroke (right srivastava radiata, centrum semiovalve involving right frontal/parietal lobe). Etiology probable due to symptomatic right ICA (50-70% on CTA)-- having improvement in moving the left side for past two days Symptomatic right ICA (discordant where CTA 50-70% while carotid is not si gnificant). Per vascular surgery team is significant stenosis. Asymptomatic left ICA of greater than 70% Dyslipidemia Hypertension History of coronary artery disease status post stent Plan: Continue aspirin 325mg daily and Plavix 75mg daily (he was on ASA 81mg daily). Continue Lipitor 40 mg daily at bedtime for secondary stroke prophylaxis, goal of LDL <70 in stroke. Vascular surgery team is on board and they feel the right ICA is symptomatic and planning of surgery on 11/19/2022 Continue neuro checks Cardiac monitoring PT OT and [employer] are consulted We'll defer the rest of the medical management to the primary team and other specialist For DVT prophylaxis On subcu heparin 5000 units every 12 hours The plan discussed with the patient. Will follow-up with patient sporadically. Dr. Norton will start service on 11/19/2022 A.M. Time with Patient: Less than 30
[2022-11-16] MEDS: HYDROcodone/APAP 7.5-325MG 1 EACH TAB PO PRN ×2 (16:47→23:35)
[2022-11-16] MEDS: DOXAZOSIN 4 MG TAB PO SCH (19:54)
[2022-11-16] MEDS: ATORVASTATIN 40 MG TAB PO SCH (19:54)
[2022-11-17] MEDS: carvediloL 6.25 MG TAB PO SCH ×2 (06:23→16:40)
[2022-11-17] MEDS: HEPARIN SODIUM,PORCINE/PF 5,000 UNIT/0.5 ML SYRINGE SQ SCH ×2 (09:16→20:09)
[2022-11-17] MEDS: LOSARTAN 50 MG TAB PO SCH (09:16)
[2022-11-17] MEDS: FUROSEMIDE 40 MG TAB PO SCH (09:16)
[2022-11-17] MEDS: CLOPIDOGREL 75 MG TAB PO SCH (09:16)
[2022-11-17] MEDS: TAMSULOSIN 0.4 MG CAP.ER.24H PO SCH (09:16)
[2022-11-17] MEDS: FAMOTIDINE 20 MG TAB PO SCH ×2 (09:16→20:08)
[2022-11-17] MEDS: ASPIRIN 325 MG TAB PO SCH (09:16)
[2022-11-17] MEDS: DOCUSATE 100 MG CAP PO SCH ×3 (09:16→23:22)
--- NOTE | 2022-11-17 11:04 | P.PN ---
Subjective Progress Note Date: 11/17/22 The patient is an 82-year-old male who follows in the office with Dr. RIK Ritter. The patient is currently admitted to the hospital with an acute CVA. He was found to have severe right ICA disease and will be undergoing surgical intervention with Dr. Potts. The patient has been cleared to proceed with the procedure on 11/19/2022. Patient was interviewed and examined resting comfortably in the recliner chair. He states he did well overnight. No chest pain or chest pressure. No heart racing or fluttering. No dizziness or lightheadedness. He does have some residual weakness in his left lower extremity. GENERAL: Well-appearing, well-nourished and in no acute distress. NECK: Supple without JVD or thyromegaly. LUNGS: Breath sounds clear to auscultation bilaterally. Respiration equal and unlabored. No wheezes, rales or rhonchi. HEART: Regular rate and rhythm. S1 and S2 heard. EXTREMITIES: Normal range of motion, no edema. No clubbing or cyanosis. Peripheral pulses intact and strong. TELEMETRY: Sinus rhythm overnight IMPRESSION: Acute CVA Internal carotid artery stenosis Ischemic cardiomyopathy, EF 45% Coronary artery disease with prior stenting Hypertension Hyperlipidemia PLAN: Continue current medication regimen Patient may proceed with surgery as clinically indicated Further recommendations based on clinical course I am dictating on behalf of Dr Tristin Roe's history/physical and assessment/plan. Objective - Vital Signs Vital signs: Vital Signs Temp 97.4 F L 11/17/22 09:18 Pulse 74 11/17/22 09:18 Resp 15 11/17/22 09:18 BP 121/74 11/17/22 09:18 Pulse Ox 97 11/17/22 09:18 FiO2 21 11/17/22 09:02 Intake & Output 11/16/22 11/17/22 11/17/22 18:59 06:59 18:59 Intake Total 420 180 Balance 420 180 Intake: Oral 420 180 Other: Voiding Method Toilet Toilet # Voids 0 2 # Bowel Movements 0 - Labs CBC & Chem 7: 11/16/22 08:05 11/16/22 08:05
--- NOTE | 2022-11-17 13:45 | P.PN ---
Subjective Progress Note Date: 11/17/22 patient is a 82-year-old gentleman with past medical history significant for hypertension brought to the hospital because of left-sided weakness. Patient stated that he was out shopping when after returning home he started feeling unwell he went down to sit on the bed and noted that he started developing left- sided weakness involving both his arm and leg, there was no evidence of any slurred speech, no pain of any facial droop. Patient called EMS and was brought to the ER. The patient was worked up in the ER, his weakness had improved, NIH improved to 1. Initial lab work done in the ER showed WBC 8.2, hemoglobin 14.4, platelet count 128, sodium 135, potassium 4.4, BUN 29, creatinine 1.11, CT brain negative for any acute intracranial process CT angiogram head and neck showed greater than 70% stenosis of the left proximal internal carotid artery and 50%-70% stenosis of right proximal internal carotid artery Case was discussed by ER with the electronic technologist stroke team, patient was not a candidate for any TPA, they recommended inpatient admission with consult to neurology On discussion with patient's , patient still having left-sided leg weakness, status left upper extremity weakness has improved. Denies any slurred speech. 11/14. Patient seen and examined. States weakness of left lower extremity is improving 11/15. Patient seen and examined. Patient states weakness of left lower ext remity has improved a lot. Working with PT and OT 11/16. Patient seen and examined. No acute issues overnight. 11/17. Patient seen and examined laying comfortably in the bed. Denies any lightheadedness or dizziness. Vital signs stable REVIEW OF SYSTEMS: CONSTITUTIONAL: No fever, no malaise,. CARDIOVASCULAR: No chest pain, no palpitations, no syncope. PULMONARY: No shortness of breath, no cough, GASTROINTESTINAL: No diarrhea, no nausea, no vomiting, no abdominal pain. NEUROLOGICAL: No headaches, PHYSICAL EXAMINATION: GENERAL: The patient is alert and oriented x3, not in any acute distress. Well developed, well nourished. HEENT: Pupils are round and equally reacting to light. EOMI. No scleral icterus. No conjunctival pallor. Normocephalic, atraumatic. No pharyngeal erythema. No thyromegaly. CARDIOVASCULAR: S1 and S2 present. No murmurs, rubs, or gallops. PULMONARY: Chest is clear to auscultation, no wheezing or crackles. ABDOMEN: Soft, nontender, nondistended, normoactive bowel sounds. No palpable organomegaly. MUSCULOSKELETAL: No joint swelling or deformity. EXTREMITIES: No cyanosis, clubbing, or pedal edema. NEUROLOGICAL: Gross neurological examination did not reveal any focal deficits. Muscle strength is 4 x 5 in left lower extremity, 5 x 5 in rest SKIN: No rashes. Assessment and plan Acute CVA Symptomatic right ICA A symptomatic left ICA of greater than 70% Hypertension Ischemic cardiomyopathy Plan; Monitor vital signs Monitor CBC Monitor CMP Continue neuro checks Echocardiogram reveals EF of 25-30% with mild increased left ventricular wall thickness. Mild to moderate dilated left atrium, trace to mild tricuspid regurgitation. Ultrasound of carotids showed extensive atherosclerotic plaque with findings consistent of 50-69% stenosis of left ICA MRI brain showed scattered right CVA foci within the right srivastava radiata and right centrum semiovale involving the posterior right frontal lobe and parietal region Continue aspirin 325 per neurology , Plavix Continue Lipitor 40 mg daily at bedtime for secondary stroke prophylaxis, goal of LDL <70 in stroke Follow-up on PT and OT recommendations Follow-up on neurology recommendations Cardiology evaluated the patient and recommended Start patient on Coreg 6.25 mg twice daily for better blood pressure control,Continue losartan at 50 mg daily.Patient is cleared for surgical intervention as he is noted to be a at high risk. Cardiology Recommend that vascular proceed with surgical intervention on this hospitalization so that his cardiomyopathy can be closely monitored as we will need to maximize medical therapy. Follow-up on vascular surgery recommendations, planning for endarterectomy for symptomatic right ICA on 11/19 DVT prophylaxis: Objective - Vital Signs Vital signs: Vital Signs Temp 97.4 F L 11/17/22 09:18 Pulse 74 11/17/22 09:18 Resp 15 11/17/22 09:18 BP 121/74 11/17/22 09:18 Pulse Ox 97 11/17/22 09:18 FiO2 21 11/17/22 09:02 Intake & Output 11/16/22 11/17/22 11/17/22 18:59 06:59 18:59 Intake Total 420 180 Balance 420 180 Intake: Oral 420 180 Other: Voiding Method Toilet Toilet # Voids 0 2 # Bowel Movements 0 - Labs CBC & Chem 7: 11/16/22 08:05 11/16/22 08:05
[2022-11-17] MEDS: DOXAZOSIN 4 MG TAB PO SCH (20:08)
[2022-11-17] MEDS: ATORVASTATIN 40 MG TAB PO SCH (20:08)
[2022-11-17] MEDS: HYDROcodone/APAP 7.5-325MG 1 EACH TAB PO PRN (20:08)
[2022-11-17] MEDS: prednisoLONE ACETATE 1% OPHTH DROPS 5 ML BTL LEFT EYE SCH (22:06)
[2022-11-18] MEDS: HYDROcodone/APAP 7.5-325MG 1 EACH TAB PO PRN ×2 (04:01→16:34)
[2022-11-18] MEDS: carvediloL 6.25 MG TAB PO SCH ×2 (06:26→16:34)
[2022-11-18] MEDS: TAMSULOSIN 0.4 MG CAP.ER.24H PO SCH (09:41)
[2022-11-18] MEDS: FUROSEMIDE 40 MG TAB PO SCH (09:41)
[2022-11-18] MEDS: ASPIRIN 325 MG TAB PO SCH (09:41)
[2022-11-18] MEDS: DOCUSATE 100 MG CAP PO SCH ×2 (09:41→16:33)
[2022-11-18] MEDS: LOSARTAN 50 MG TAB PO SCH (09:41)
[2022-11-18] MEDS: CLOPIDOGREL 75 MG TAB PO SCH (09:41)
[2022-11-18] MEDS: FAMOTIDINE 20 MG TAB PO SCH ×2 (09:41→20:13)
[2022-11-18] MEDS: HEPARIN SODIUM,PORCINE/PF 5,000 UNIT/0.5 ML SYRINGE SQ SCH ×2 (09:43→20:13)
[2022-11-18] MEDS: prednisoLONE ACETATE 1% OPHTH DROPS 5 ML BTL LEFT EYE SCH (09:43)
--- NOTE | 2022-11-18 12:05 | P.PN ---
Subjective Progress Note Date: 11/18/22 The patient is an 82-year-old male who follows in the office with Dr. RIK Ritter. The patient is currently admitted to the hospital with an acute CVA. He was found to have severe right ICA disease and will be undergoing surgical intervention with Dr. Potts. The patient has been cleared to proceed with the procedure on 11/19/2022. Patient was interviewed and examined resting comfortably in the recliner chair. He just ambulated to the restroom. He states he did well overnight and is eager to be discharged from the hospital. No chest pain or chest pressure. No heart racing or fluttering. No dizziness or lightheadedness. He does have some residual weakness in his left lower extremity. GENERAL: Well-appearing, well-nourished and in no acute distress. NECK: Supple without JVD or thyromegaly. LUNGS: Breath sounds clear to auscultation bilaterally. Respiration equal and unlabored. No wheezes, rales or rhonchi. HEART: Regular rate and rhythm. S1 and S2 heard. EXTREMITIES: Normal range of motion, no edema. No clubbing or cyanosis. Peripheral pulses intact and strong. TELEMETRY: Sinus rhythm overnight IMPRESSION: Acute CVA Internal carotid artery stenosis Ischemic cardiomyopathy, prior EF 45%, recent repeat testing 25-30% Coronary artery disease with prior stenting Hypertension Hyperlipidemia PLAN: Continue current medication regimen Patient may proceed with surgery as clinically indicated Primary lead generation marketing manager Dr. RIK Ritter to address low ejection fraction outpatient Further recommendations based on clinical course I am dictating on behalf of Dr Tristin Roe's history/physical and assessment/plan. Objective - Vital Signs Vital signs: Vital Signs Temp 97.8 F 11/18/22 09:24 Pulse 74 11/18/22 09:24 Resp 18 11/18/22 09:24 BP 139/79 11/18/22 09:24 Pulse Ox 98 11/18/22 09:24 FiO2 21 11/17/22 09:02 Intake & Output 11/17/22 11/18/22 11/18/22 18:59 06:59 18:59 Intake Total 400 250 Balance 400 250 Intake: IV 10 Invasive Line 3 10 Oral 400 240 Other: Voiding Method Toilet Toilet Toilet # Voids 3 2 - Labs CBC & Chem 7: 11/16/22 08:05 06/23/23 08:05
--- NOTE | 2022-11-18 13:37 | P.PN ---
Subjective Progress Note Date: 11/18/22 patient is a 82-year-old gentleman with past medical history significant for hypertension brought to the hospital because of left-sided weakness. Patient stated that he was out shopping when after returning home he started feeling unwell he went down to sit on the bed and noted that he started developing left- sided weakness involving both his arm and leg, there was no evidence of any slurred speech, no pain of any facial droop. Patient called EMS and was brought to the ER. The patient was worked up in the ER, his weakness had improved, NIH improved to 1. Initial lab work done in the ER showed WBC 8.2, hemoglobin 14.4, platelet count 128, sodium 135, potassium 4.4, BUN 29, creatinine 1.11, CT brain negative for any acute intracranial process CT angiogram head and neck showed greater than 70% stenosis of the left proximal internal carotid artery and 50%-70% stenosis of right proximal internal carotid artery Case was discussed by ER with the substation operator conversion stroke team, patient was not a candidate for any TPA, they recommended inpatient admission with consult to neurology On discussion with patient's , patient still having left-sided leg weakness, status left upper extremity weakness has improved. Denies any slurred speech. 11/14. Patient seen and examined. States weakness of left lower extremity is improving 11/15. Patient seen and examined. Patient states weakness of left lower ext remity has improved a lot. Working with PT and OT 11/16. Patient seen and examined. No acute issues overnight. 11/17. Patient seen and examined laying comfortably in the bed. Denies any lightheadedness or dizziness. Vital signs stable 11/18. Patient seen and examined. Temperature 97.8, heart rate 66, blood pressure 140/79. No acute issues overnight. Patient ready for carotid endarterectomy for tomorrow REVIEW OF SYSTEMS: CONSTITUTIONAL: No fever, no malaise,. CARDIOVASCULAR: No chest pain, no palpitations, no syncope. PULMONARY: No shortness of breath, no cough, GASTROINTESTINAL: No diarrhea, no nausea, no vomiting, no abdominal pain. NEUROLOGICAL: No headaches, PHYSICAL EXAMINATION: GENERAL: The patient is alert and oriented x3, not in any acute distress. Well developed, well nourished. HEENT: Pupils are round and equally reacting to light. EOMI. No scleral icterus. No conjunctival pallor. Normocephalic, atraumatic. No pharyngeal erythema. No th yromegaly. CARDIOVASCULAR: S1 and S2 present. No murmurs, rubs, or gallops. PULMONARY: Chest is clear to auscultation, no wheezing or crackles. ABDOMEN: Soft, nontender, nondistended, normoactive bowel sounds. No palpable organomegaly. MUSCULOSKELETAL: No joint swelling or deformity. EXTREMITIES: No cyanosis, clubbing, or pedal edema. NEUROLOGICAL: Gross neurological examination did not reveal any focal deficits. Muscle strength is 4 x 5 in left lower extremity, 5 x 5 in rest SKIN: No rashes. Assessment and plan Acute CVA Symptomatic right ICA A symptomatic left ICA of greater than 70% Hypertension Ischemic cardiomyopathy Plan; Monitor vital signs Monitor CBC Monitor CMP Continue neuro checks Echocardiogram reveals EF of 25-30% with mild increased left ventricular wall thickness. Mild to moderate dilated left atrium, trace to mild tricuspid regurgitation. Ultrasound of carotids showed extensive atherosclerotic plaque with findings consistent of 50-69% stenosis of left ICA MRI brain showed scattered right CVA foci within the right srivastava radiata and right centrum semiovale involving the posterior right frontal lobe and parietal region Continue aspirin 325 per neurology , Plavix Continue Lipitor 40 mg daily at bedtime for secondary stroke prophylaxis, goal of LDL <70 in stroke Cardiology evaluated the patient and recommended Coreg 6.25 mg twice daily for better blood pressure control,Continue losartan at 50 mg daily.Patient is cleared for surgical intervention as he is noted to be a at high risk. Cardiology Recommend that vascular proceed with surgical intervention on this hospitalization so that his cardiomyopathy can be closely monitored as we will n eed to maximize medical therapy. Follow-up on vascular surgery recommendations, planning for endarterectomy for symptomatic right ICA on 11/19, SCOURING MACHINE OPERATOR after midnight DVT prophylaxis: Objective - Vital Signs Vital signs: Vital Signs Temp 97.8 F 11/18/22 09:24 Pulse 74 11/18/22 09:24 Resp 18 11/18/22 09:24 BP 139/79 11/18/22 09:24 Pulse Ox 98 11/18/22 09:24 FiO2 21 11/17/22 09:02 Intake & Output 11/17/22 11/18/22 11/18/22 18:59 06:59 18:59 Intake Total 400 250 Balance 400 250 Intake: IV 10 Invasive Line 3 10 Oral 400 240 Other: Voiding Method Toilet Toilet Toilet # Voids 3 2 - Labs CBC & Chem 7: 11/16/22 08:05 11/16/22 08:05
[2022-11-18] MEDS: DOXAZOSIN 4 MG TAB PO SCH (20:13)
[2022-11-18] MEDS: ATORVASTATIN 40 MG TAB PO SCH (20:13)
[2022-11-19] MEDS: DOCUSATE 100 MG CAP PO SCH ×3 (00:40→18:33)
[2022-11-19] MEDS: carvediloL 6.25 MG TAB PO SCH ×2 (06:25→18:32)
[2022-11-19 08:08] LABS: Basophils % (A) 0 %; Eosinophils # (A) 0.3 k/uL (0-0.7); Eosinophils % (A) 5 %; HCT 44.9 % (39.0-53.0); HGB 14.2 gm/dL (13.0-17.5); Lymphocytes # (A) 1.6 k/uL (1.0-4.8); Lymphocytes % (A) 29 %; MCH 27.3 pg (25.0-35.0); MCHC 31.6 g/dL (31.0-37.0); MCV 86.4 fL (80.0-100.0); Mean Platelet Volume 8.5; Monocytes # (A) 0.3 k/uL (0-1.0); Monocytes % (A) 6 %; Neutrophils # (A) 3.2 k/uL (1.3-7.7); Neutrophils % (A) 58 %; Platelet Count 145 k/uL (150-450); RDW 14.1 % (11.5-15.5); WBC 5.4 k/uL (3.8-10.6)
[2022-11-19 08:35] LABS: ALT 51 U/L (4-49); AST 44 U/L (17-59); African American GFR (CKD) 70 (>60 ml/min/1.73 sqM); Albumin 4.1 g/dL (3.5-5.0); Alkaline Phosphatase 77 U/L (38-126); Anion Gap 8 mmol/L; Blood Urea Nitrogen 28 mg/dL (9-20); Calcium 8.9 mg/dL (8.4-10.2); Carbon Dioxide 26 mmol/L (22-30); Chloride 99 mmol/L (98-107); Glucose 87 mg/dL (74-99); Non-African American GFR(CKD) 61 (>60 ml/min/1.73 sqM); Potassium 4.2 mmol/L (3.5-5.1); Sodium 133 mmol/L (137-145); Total Bilirubin 0.6 mg/dL (0.2-1.3); Total Protein 7.1 g/dL (6.3-8.2)
[2022-11-19] MEDS: HEPARIN SODIUM,PORCINE/PF 5,000 UNIT/0.5 ML SYRINGE SQ SCH ×2 (08:56→20:16)
[2022-11-19] MEDS: CLOPIDOGREL 75 MG TAB PO SCH (08:56)
[2022-11-19] MEDS: FAMOTIDINE 20 MG TAB PO SCH ×2 (08:57→20:16)
[2022-11-19] MEDS: LOSARTAN 50 MG TAB PO SCH (08:57)
[2022-11-19] MEDS: ASPIRIN 325 MG TAB PO SCH (08:57)
[2022-11-19] MEDS: TAMSULOSIN 0.4 MG CAP.ER.24H PO SCH (08:57)
[2022-11-19] MEDS: FUROSEMIDE 40 MG TAB PO SCH (08:57)
[2022-11-19] MEDS: SODIUM CHLORIDE 0.9% 1,000 ML IV SCH (08:58)
[2022-11-19] MEDS: prednisoLONE ACETATE 1% OPHTH DROPS 5 ML BTL LEFT EYE SCH (08:59)
[2022-11-19] MEDS ORDERED: RX INFO: IV CONTRAST WAS GIVEN 1 EACH MISC MISCELLANE PRN (09:00)
--- NOTE | 2022-11-19 10:19 | P.PN ---
Subjective HISTORY OF PRESENT ILLNESS: This is an 82-year-old male who follows in the office with Dr. Ritter. Patient is admitted to the hospital secondary to acute CVA. Patient was found to have severe right ICA disease. He is scheduled for surgical intervention today with vascular surgery. He continues to report left lower extremity weakness. He denies chest pain or pressure. He denies shortness of breath. PHYSICAL EXAM: VITAL SIGNS: Reviewed. GENERAL: Well-developed in no acute distress. NECK: Supple. No JVD or thyromegaly LUNGS: Respirations even and unlabored. Lungs essentially clear to auscultation bilaterally. HEART: Regular rate and rhythm. S1 and S2 heard. EXTREMITIES: Normal range of motion. No clubbing or cyanosis. Peripheral pulses intact. No lower extremity edema ASSESSMENT: Acute CVA Right internal carotid artery stenosis Ischemic cardiomyopathy, previous EF 45%, now 25-30% Coronary artery disease with previous stenting (x 4 per patient) Hypertension Hyperlipidemia PLAN: Continue current cardiac medications Patient was cleared for surgery yesterday by Dr. Roe Further recommendations pending patient course Nurse practitioner note has been reviewed by physician. Signing provider agrees with the documented findings, assessment, and plan of care. Objective - Vital Signs Vital signs: Vital Signs Temp 97.9 F 11/19/22 04:00 Pulse 98 11/19/22 04:00 Resp 18 11/19/22 04:00 BP 130/80 11/19/22 04:00 Pulse Ox 96 11/19/22 10:02 FiO2 21 11/17/22 09:02 Intake & Output 11/18/22 11/19/22 11/19/22 18:59 06:59 18:59 Intake Total 380 20 Balance 380 20 Intake: IV 20 20 Invasive Line 3 20 20 Oral 360 Other: Voiding Method Toilet Toilet # Voids 2 2 - Labs CBC & Chem 7: 11/19/22 06:37 11/19/22 06:37 Labs: Abnormal Lab Results - Last 24 Hours (Table) 11/19/22 11/19/22 Range/Units 06:37 06:37 Plt Count 145 L (150-450) k/uL Sodium 133 L (137-145) mmol/L BUN 28 H (9-20) mg/dL ALT 51 H (4-49) U/L
--- NOTE | 2022-11-19 11:23 | CDI ---
Documentation Clarification Form Date: 11/19/2022 10:52:01 AM From: Ember Mckenzie RN, CCDS Admit Date: 11/12/2022 06:01:00 PM Patient Name: Ba Sanchez Visit Number: [id number] Discharge Date: ATTENTION: The Clinical Documentation Specialists (CDI) and [facility] Coding Staff appreciate your assistance in clarifying documentation. Please respond to the clarification below the line at the bottom and electronically sign. The CDI & [facility] Coding staff will review the response and follow-up if needed. Please note: Queries are made part of the Legal Health Record. If you have any questions, please contact the author of this message via ITS. Dr. Dyllan Marshall Your patient has the documented past medical history of unspecified CHF. Additional information regarding the type, acuity of CHF is requested. History/Risk Factors: Coronary artery disease, Heart Failure, Hyperlipidemia, Hypertension, IA, Thyroid disorder Clinical indicators: 82-year-old male present with complaints of left side weakness. He has a past medical history of heart failure. Further clarification is requested. 11/12 VS: 166/84 68 22 97 % RA 11/12 Chest X Ray: No acute cardiopulmonary disease process. 11/13 ECHO: Left ventricular ejection fraction is estimated at 25-30 %. Left ventricular cavity size normal. Mildly increased septal wall thickness. Severely reduced global left ventricular systolic function. Treatment: Cardiac Telemetry monitoring ASA 81 MG PO Daily Coreg 6.25 MG PO BID, Losartan 50 MG PO Daily 11/13-11/19 Lasix 40 MG PO Daily 11/14-11/19 In your professional opinion, can you please clarify the [acuity and type] of CHF if known? [ ] Chronic Systolic Heart Failure (reduced EF) [x ] Other, please specify [ ] Unable to determine (Template Last Revised: June 2020) MTDD
[2022-11-19 12:02] VITALS: BMI 31.1
[2022-11-19] MEDS ORDERED: LIDOCAINE 1% INJ 10MG/ML (20 ML MDV) ONE (13:30)
[2022-11-19] MEDS ORDERED: LABETALOL 5 MG/ML VIAL MDV ONE (13:34)
[2022-11-19] MEDS ORDERED: NITROGLYCERIN-D5W PMX 50 MG/250 ML BOTTLE IV ONE (13:34)
[2022-11-19] MEDS ORDERED: GLYCOPYRROLATE 0.2 MG/ML 2 ML VIAL ONE (13:34)
[2022-11-19] MEDS ORDERED: hydrALAZINE HCL 20 MG/ML 1 ML VIAL ONE (13:34)
[2022-11-19] MEDS ORDERED: HEPARIN SODIUM,PORCINE 10,000 UNIT/ML 1 ML VIAL ONE (13:34)
[2022-11-19] MEDS ORDERED: PROTAMINE SULFATE 10 MG/ML 5 ML VIAL IV ONE (13:34)
[2022-11-19] MEDS ORDERED: fentaNYL (PF) 50 MCG/ML 2 ML AMP ONE (13:34)
--- NOTE | 2022-11-19 13:59 | P.PN ---
Subjective Progress Note Date: 11/19/22 patient is a 82-year-old gentleman with past medical history significant for hypertension brought to the hospital because of left-sided weakness. Patient stated that he was out shopping when after returning home he started feeling unwell he went down to sit on the bed and noted that he started developing left- sided weakness involving both his arm and leg, there was no evidence of any slurred speech, no pain of any facial droop. Patient called EMS and was brought to the ER. The patient was worked up in the ER, his weakness had improved, NIH improved to 1. Initial lab work done in the ER showed WBC 8.2, hemoglobin 14.4, platelet count 128, sodium 135, potassium 4.4, BUN 29, creatinine 1.11, CT brain negative for any acute intracranial process CT angiogram head and neck showed greater than 70% stenosis of the left proximal internal carotid artery and 50%-70% stenosis of right proximal internal carotid artery Case was discussed by ER with the union organizer stroke team, patient was not a candidate for any TPA, they recommended inpatient admission with consult to neurology On discussion with patient's , patient still having left-sided leg weakness, status left upper extremity weakness has improved. Denies any slurred speech. 11/14. Patient seen and examined. States weakness of left lower extremity is improving 11/15. Patient seen and examined. Patient states weakness of left lower ext remity has improved a lot. Working with PT and OT 11/16. Patient seen and examined. No acute issues overnight. 11/17. Patient seen and examined laying comfortably in the bed. Denies any lightheadedness or dizziness. Vital signs stable 11/18. Patient seen and examined. Temperature 97.8, heart rate 66, blood pressure 140/79. No acute issues overnight. Patient ready for carotid endarterectomy for tomorrow 11/19. Patient seen and examined. WBC 5.4, hemoglobin 14.2, sodium 133, potassium 4.2,. Going for carotid endarterectomy today REVIEW OF SYSTEMS: CONSTITUTIONAL: No fever, no malaise,. CARDIOVASCULAR: No chest pain, no palpitations, no syncope. PULMONARY: No shortness of breath, no cough, GASTROINTESTINAL: No diarrhea, no nausea, no vomiting, no abdominal pain. NEUROLOGICAL: No headaches, PHYSICAL EXAMINATION: GENERAL: The patient is alert and oriented x3, not in any acute distress. Well developed, well nourished. HEENT: Pupils are round and equally reacting to light. EOMI. No scleral icterus. No conjunctival pallor. Normocephalic, atraumatic. No pharyngeal erythema. No thyromegaly. CARDIOVASCULAR: S1 and S2 present. No murmurs, rubs, or gallops. PULMONARY: Chest is clear to auscultation, no wheezing or crackles. ABDOMEN: Soft, nontender, nondistended, normoactive bowel sounds. No palpable organomegaly. MUSCULOSKELETAL: No joint swelling or deformity. EXTREMITIES: No cyanosis, clubbing, or pedal edema. NEUROLOGICAL: Gross neurological examination did not reveal any focal deficits. Muscle strength is 4 x 5 in left lower extremity, 5 x 5 in rest SKIN: No rashes. Assessment and plan Acute CVA Symptomatic right ICA A symptomatic left ICA of greater than 70% Hypertension Ischemic cardiomyopathy chronic systolic CHF Plan; Monitor vital signs Monitor CBC Monitor CMP Continue neuro checks Echocardiogram reveals EF of 25-30% with mild increased left ventricular wall thickness. Mild to moderate dilated left atrium, trace to mild tricuspid regurgitation. Ultrasound of carotids showed extensive atherosclerotic plaque with findings consistent of 50-69% stenosis of left ICA MRI brain showed scattered right CVA foci within the right srivastava radiata and right centrum semiovale involving the posterior right frontal lobe and parietal region Continue aspirin 325 per neurology , Plavix Continue Lipitor 40 mg daily at bedtime for secondary stroke prophylaxis, goal of LDL <70 in stroke Cardiology evaluated the patient and recommended Coreg 6.25 mg twice daily for better blood pressure control,Continue losartan at 50 mg daily.Patient is cleared for surgical intervention as he is noted to be a at high risk. Cardio logy Recommend that vascular proceed with surgical intervention on this hospitalization so that his cardiomyopathy can be closely monitored as we will need to maximize medical therapy. Follow-up on vascular surgery recommendations, planning for endarterectomy for symptomatic right ICA, scheduled for today DVT prophylaxis: Objective - Vital Signs Vital signs: Vital Signs Temp 97.9 F 11/19/22 04:00 Pulse 98 11/19/22 04:00 Resp 18 11/19/22 04:00 BP 130/80 11/19/22 04:00 Pulse Ox 98 11/19/22 04:00 FiO2 21 11/17/22 09:02 Intake & Output 11/18/22 11/19/2211/19/23 18:59 06:59 18:59 Intake Total 380 20 Balance 380 20 Intake: IV 20 20 Invasive Line 3 20 20 Oral 360 Other: Voiding Method Toilet Toilet # Voids 2 2 - Labs CBC & Chem 7: 11/19/22 06:37 11/19/22 06:37 Labs: Abnormal Lab Results - Last 24 Hours (Table) 11/19/22 11/19/22 Range/Units 06:37 06:37 Plt Count 145 L (150-450) k/uL Sodium 133 L (137-145) mmol/L BUN 28 H (9-20) mg/dL ALT 51 H (4-49) U/L
[2022-11-19] MEDS ORDERED: LIDOCAINE 1% INJ 10MG/ML (30 ML VIAL-PF) SQ ONE (14:03)
[2022-11-19] MEDS ORDERED: IV FLUID CONTINUATION 1,000 ML IV ONE (14:04)
[2022-11-19] MEDS ORDERED: IOPAMIDOL-250 100ML BTL INTRAARTER ONE (14:57)
[2022-11-19] MEDS ORDERED: ATROPINE SULFATE 0.1 MG/ML 10ML SYRINGE IV PRN (15:43)
[2022-11-19] MEDS ORDERED: MAG HYDROX/AL HYDROX/SIMETH 30 ML CUP PO PRN (15:43)
--- NOTE | 2022-11-19 15:43 | P.OP ---
Date of Procedure: 11/19/22 Description of Procedure: Preoperative diagnosis: Symptomatic right internal carotid artery stenosis, ischemic cardiomyopathy EF 25-30%, coronary artery disease Postoperative diagnosis: Same Procedure: RightTranscarotid artery revascularization with stenting. Right common femoral vein central venous catheter placement under ultrasound guidance Surgeon: Desiree Potts DO Naval Marine Engineer: Willow Wilson Anesthesia: Conscious sedation Complications: None Condition: Stable Flow reversal time: 15 minutes Lesion length: 2 cm Indication for procedure: Patient is an 82-year-old male who presented to the hospital with left-sided weakness and was found to have 5-60% right ICA stenosis as well as severe left ICA stenosis. Given his dramatic nature and is new onset ischemic cardiomyopathy, it was decided to perform the procedure inpatient. He has been on Plavix and aspirin for the past week. He presents today for trans- carotid artery revascularization and stent. Risks and benefits were discussed, he seemingly understood and was willing to proceed. Operative narrative: After written and informed consent was obtained the patient all risks benefits and competitions were described the patient was brought to the [facility] and laid in a supine position. The area of the neck and groins were prepped and draped in usual sterile fashion after appropriate anesthetic was performed per the anesthesiologist. A timeout was performed in normal fashion and antibiotics were administered prior to incision. Utilizing ultrasound the right common carotid artery was located and a transverse incision was created overlying this area after proper anesthetization. Dissection was carried between the sternocleidomastoid musculature down to the carotid sheath. The sheath was then incised and the common carotid artery was located and dissected free in a circumferential manner and controlled with umbilical tape. Once controlled, attention was placed down to the common femoral vein and utilizing ultrasound the vein was cannulated and the 8-Austrian sheath was placed in normal fashion. Attention was then placed back to the carotid artery and the patient was administered heparin and followed with ACTs and redosed as needed for ACT above 250. A pursestring suture was then placed at the common carotid artery with 5-0 Prolene and utilizing a micropuncture needle the common carotid artery was accessed and wire was placed followed by a 4-Austrian sheath. Carotid angiogram was then obtained demonstrating significant stenosis in the internal carotid artery. Stiff wire was then placed followed by the 8 [place] sheath. Flow reversal was then established with the enroute GREENHOUSE ASSISTANT system after patient's blood pressure was increased to above 160, heart rate above 60 and ACT above 250. 014 wire was then placed across the lesion followed by a 5.5 x 30 mm [place] balloon and balloon angioplasty was performed followed by an 9 x 40 mm Silk[place] stent. Postdilatation was not performed and final angiogram was obtained demonstrating complete resolution of the stenosis. All guidewires and catheters were removed and the sheath was removed and the arteriotomy was secured with the previously placed pursestring suture. Hemostasis was assured with Gelfoam and thrombin. The area was irrigated and closed. The platysma was closed with 3-0 Vicryl. The skin was closed with running 4-0 Monocryl in subcuticular fashionThe femoral sheath was also removed and pressure was held for hemostasis. The patient all procedure well and was moving all extremities and following commands. The patient was then sent to PACU for recovery.
[2022-11-19 16:07] LABS: Glucose,Whole Blood 103 mg/dL (70-110)
[2022-11-19] MEDS: PHENYLEPHRINE 40 MG in SODIUM CHLORIDE 0.9% 250 ML IV SCH ×2 (16:28→17:45)
[2022-11-19] MEDS ORDERED: HYDROmorphone 0.5 MG/0.5 ML SYRINGE IVP ONE (16:41)
[2022-11-19] MEDS ORDERED: PSEUDOEPHEDRINE 30 MG TAB PO SCH (17:00)
[2022-11-19] MEDS ORDERED: SODIUM CHLORIDE 0.9% 1,000 ML IV ONE (17:20)
[2022-11-19] MEDS: DEXMEDETOMIDINE/0.9% NACL(PMX) 400 MCG in EMPTY BAG 1 BAG IV SCH (17:26)
[2022-11-19 17:37] LABS: Glucose,Whole Blood 102 mg/dL (70-110)
--- NOTE | 2022-11-19 19:47 | P.PN ---
Subjective Progress Note Date: 11/19/22 Some of the work-up consisted of: Lipid panel: TG 148, cholestrol 206, LDL 145, HDL 31 TSH: 4.82 and free T4 1.01 CT of the head is reported as no acute intracranial process. CT angiography of the head and neck is reported as overall findings similar to 2020. Greater than 70% stenosis in the left proximal internal carotid artery and 5070% stenosis of the right proximal internal carotid artery. At least 50% stenosis of the origin of the left vertebral artery. No evidence of dissection of the cervical internal carotid artery or vertebral artery. No evidence of int racranial high-grade stenosis or intracranial aneurysm. Carotid duplex: Extensive athersclerotic plaque with finding suggestive approximately 50-69% stenosis involving proximal left ICA. MRI Brain: Scattere right CVA foci within right srivastava radiata and right centrum semiovale involving the posterior right frontal lobe and parietal region. I agree with report. 2D Echo: Reported as left ventricular ejection fraction 25-30%. Mild increased left ventricular wall thickness. Mild to moderately dilated left atrium. Trace to mild tricuspid regurgitation. Objective - Vital Signs Vital signs: Vital Signs Temp 97.2 F L 11/19/22 17:34 Pulse 60 11/19/22 19:00 Resp 25 H 11/19/22 19:00 BP 132/82 11/19/22 19:00 Pulse Ox 94 L 11/19/22 19:00 FiO2 21 11/19/22 17:00 Intake & Output 11/19/22 11/19/22 11/20/22 06:59 18:59 06:59 Intake Total 20 650 50 Output Total 1300 Balance 20 -650 50 Weight 98.6 kg Intake: IV 20 650 50 Invasive Line 3 20 Sodium Chloride 0.9% 1, 50 50 000 ml @ 50 mls/hr IV . Q20H [facility] Rx#:[id number] Output: Urine 1300 Straight 650 Other: Voiding Method Toilet Toilet # Voids 2 ABP, PAP, CO, CI - Last Documented Arterial Blood Pressure 148/60 - Exam Patient's mental status, speech-language functions are normal. No aphasia or dysarthria. Patient can name and repeat very well. Cranial nerves are normal except for left facial weakness, central type. Visual saini are full on confrontation with no neglect. Extraocular muscles are intact. Tongue protrudes the midline. On muscle strength testing, patient has significant problem with the right shoulder from pain from arthritis, therefore has right pronation. Right deltoid not checked because of pain. Otherwise the strength is normal in the arms and legs distally and proximally. Sensations with touch is equal with no neglect. Cerebellar function showed no ataxia. - Labs CBC & Chem 7: 11/19/22 06:37 11/19/22 06:37 Labs: Abnormal Lab Results - Last 24 Hours (Table) 11/19/22 11/19/22 Range/Units 06:37 06:37 Plt Count 145 L (150-450) k/uL Sodium 133 L (137-145) mmol/L BUN 28 H (9-20) mg/dL ALT 51 H (4-49) U/L Assessment and Plan Assessment: This is an 82-year-old gentleman who presented to our facility on 11/12/2022 because of the sudden onset left-sided weakness. It seems in the ED he had improvement of his symptoms per the ED and his NIH was a 1 so no IV TPA was given. Currently on examination he still has significant left-sided weakness on the left lower with mild weakness of left upper as well as facial and the dysarthria. Acute ischemic stroke (right srivastava radiata, centrum semiovalve involving right frontal/parietal lobe). Etiology probable due to symptomatic right ICA (50-70% on CTA)-- having improvement in moving the left side for past two days Symptomatic right ICA (discordant where CTA 50-70% while carotid is not significant). Per vascular surgery team is significant stenosis. Asymptomatic left ICA of greater than 70% Patient is status post right TCAR as of today. Dyslipidemia Hypertension History of coronary artery disease status post stent Plan: Continue aspirin 325mg daily and Plavix 75mg daily (he was on ASA 81mg daily). Continue Lipitor 40 mg daily at bedtime for secondary stroke prophylaxis, goal of LDL <70 in stroke. Choice of long-term antiplatelet medication as per vascular surgery. Continue Pepcid 20 mg twice a day. Vascular surgery team is on board and they feel the right ICA is symptomatic and patient is status post right TCAR today on 11/19/2022 Continue neuro checks. Neurological examination is stable. Cardiac monitoring PT OT and PAINTER AND BODY MECHANIC APPRENTICE are consulted Blood pressure is well controlled. We'll defer the rest of the medical management to the primary team and other specialist For DVT prophylaxis On subcu heparin 5000 units every 12 hours Neurologically clear, when cleared by vascular surgery.
[2022-11-19] MEDS: HYDROcodone/APAP 7.5-325MG 1 EACH TAB PO PRN (20:15)
[2022-11-19] MEDS: ATORVASTATIN 40 MG TAB PO SCH (20:16)
[2022-11-19] MEDS: DOXAZOSIN 4 MG TAB PO SCH (20:47)
--- NOTE | 2022-11-19 22:42 | IR ---
EXAMINATION TYPE: IR stent intravas non coronary DATE OF EXAM: 11/19/2022 CLINICAL HISTORY: Carotid Stenosis. TECHNIQUE: Fluoroscopy. COMPARISON: None. FINDINGS: Fluoroscopic guidance was provided during Carotid stenosis treatment procedure performed sunita Potts. A total of 4 minutes 6 seconds of fluoroscopic time was utilized during the procedure a nd 148 spot images was acquired. Images show carotid angiogram . Please refer to procedure note for further details. IMPRESSION: As Above.
[2022-11-19] MEDS ORDERED: NALOXONE 0.4 MG/ML 1 ML VIAL IV PRN (22:59)
[2022-11-20] MEDS: DOCUSATE 100 MG CAP PO SCH ×3 (00:02→18:54)
--- NOTE | 2022-11-20 02:17 | P.CNPUL ---
History of Present Illness Consult date: 11/20/22 Requesting physician: Desiree Potts Reason for consult: other (ICU management) Chief complaint: Left-sided weakness History of present illness: I am seeing this patient in new consultation today 11/20/2022 in the intensive care unit for CVA and postoperative management following a right TCAR postoperative day #1. Patient is a 82-year-old white male with past medical history significant for coronary artery disease with four prior cardiac stents, hypertension, hyperlipidemia, BPH, and is a remote ex-smoker. Patient presented to the emergency room back on November 12 for concerns of left-sided weakness. Apparently, the patient had been out shopping and noticed some left-sided weakness. He presented to the emergency room approximately one hour after symptoms started. His left-sided hemiparesis spontaneously improved, and he did not receive TPA. NIH on arrival was 1. Brain CT without contrast on arrival showed no acute intracranial process. Follow-up brain CTA showed 50-70% elyssa nosis of the right proximal ICA and 70% stenosis of the left proximal ICA. There was also 50% stenosis of the left vertebral artery. There was no evidence of intracranial aneurysm, dissection, or high-grade stenosis. Brain MRI did confirm scattered right CVA foci within the right srivastava radiata and right centrum semiovale involving the posterior right frontal lobe and parietal region. A transthoracic echo showed a reduced ejection fraction of 25-30%. The patient's right ICA stenosis was felt to be symptomatic, and the patient did undergo right trans-carotid artery revascularization with stenting yesterday. No immediate perioperative complications reported. The patient was hypotensive following the procedure, and was started on a Leon-Synephrine infusion which is currently infusing at 0.7 mcg/kg/m. Patient also has normal saline infusing at 50 mL per hour. Patient is currently sitting up in bed, on room air, in no acute distress. His left-sided hemiparesis appears to have resolved. He is on a combination of Plavix and aspirin. CBC and BMP from yesterday were unremarkable. Troponins on arrival were negative 3. Patient will be monitored in the intensive care unit. Review of Systems REVIEW OF SYSTEMS: CONSTITUTIONAL: Denies any recent significant weight loss or weight gain. EYES: Denies change in vision. EARS, NOSE, MOUTH, THROAT: Denies headaches, denies sore throat. CARDIOVASCULAR: Denies chest pain, palpitations or syncopal episodes. RESPIRATORY: Denies shortness of breath, cough, congestion or hemoptysis. GASTROINTESTINAL: Denies change in appetite, abdominal pain, nausea and vomiting, or diarrhea GENITOURINARY: Denies hematuria, denies infections. MUSKULOSKELETAL: Denies pain, denies swelling. INTEGUMENTARY: Denies rash, denies eczema. NEUROLOGICAL: Denies recent memory loss, no recent seizure activity. Left-sided weakness improved PSYCHIATRIC: Denies anxiety, denies depression. HEMATOLOGIC/LYMPHATIC: Denies anemia, denies enlarged lymph node Past Medical History Past Medical History: Coronary Artery Disease (CAD), Heart Failure, GERD/Reflux, Hyperlipidemia, Hypertension, Myocardial Infarction (MD), Musculoskeletal Disorder, Osteoarthritis (OA), Prostate Disorder, Thyroid Disorder Additional Past Medical History / Comment(s): Lumbar disc disease, HERNIATED DISC IN BACK. Diverticular disease with diverticulosis, BPH, MD X2, unknown dates. Last Myocardial Infarction Date:: UNK History of Any Multi-Drug Resistant Organisms: None Reported Past Surgical History: Adenoidectomy, Heart Catheterization With Stent, Joint Replacement, Tonsillectomy Additional Past Surgical History / Comment(s): LEFT KNEE REPLACMENT. Colonoscopy with polypectomy, epidural steroid injections. Past Anesthesia/Blood Transfusion Reactions: No Reported Reaction Date of Last Stent Placement:: UNK Past Psychological History: No Psychological Hx Reported Smoking Status: Former smoker Past Alcohol Use History: Rare Past Drug Use History: None Reported - Past Family History Sister(s) Family Medical History: Cancer Additional Family Medical History / Comment(s): Pancreatic cancer. Father History Unknown: Yes Family Medical History: Cancer Mother History Unknown: Yes Family Medical History: Congestive Heart Failure (CHF) Additional Family Medical History / Comment(s): AT AGE 94. Medications and Allergies Home Medications Medication Instructions Recorded Confirmed Type Metoprolol Tartrate 25 mg PO BID 06/02/15 11/12/22 History Terazosin HCl 5 mg PO HS 06/02/15 11/12/22 History Nitroglycerin Sl Tabs [Nitrostat] 0.4 mg SUBLINGUAL Q5M PRN #25 tab 06/04/15 11/12/22 Rx Aspirin 81 mg PO DAILY 09/19/15 11/12/22 History Prednisolone Acetate/Pf 1 drop LEFT EYE DAILY 03/20/20 11/12/22 History [Prednisolone Acet 1% Eye Drop] Tamsulosin [Flomax] 0.4 mg PO DAILY 03/20/20 11/12/22 History Baclofen 5 - 10 mg PO BID PRN 11/12/22 11/12/22 History Furosemide [Lasix] 40 mg PO DAILY 11/12/22 11/12/22 History HYDROcodone/APAP 7.5-325MG [[place] 1 tab PO Q8H PRN 11/12/22 11/12/22 History 7.5-325] Losartan [Cozaar] 50 mg PO DAILY 11/12/22 11/12/22 History Allergies Allergy/AdvReac Type Severity Reaction Status Date / Time No Known Allergies Allergy Verified 11/12/22 18:57 Physical Exam Vitals: Vital Signs Temp Pulse Pulse Pulse Pulse Resp BP 11/20/22 01:15 71 16 11/20/22 01:00 86 21 11/20/22 00:45 62 12 11/20/22 00:30 71 18 11/20/22 00:15 72 16 11/20/22 00:06 78 18 11/20/22 00:00 97.7 F 67 14 148/82 11/19/22 23:45 55 L 15 11/19/22 23:30 66 13 11/19/22 23:15 59 L 12 11/19/22 23:00 82 19 11/19/22 22:45 73 23 11/19/22 22:30 56 L 14 11/19/22 22:15 54 L 10 L 11/19/22 22:00 76 21 11/19/22 21:45 69 27 H 11/19/22 21:30 86 23 11/19/22 21:15 51 L 19 11/19/22 21:00 65 14 11/19/22 20:45 84 25 H 134/85 11/19/22 20:30 77 16 134/85 11/19/22 20:15 64 12 11/19/22 20:00 97.8 F 71 19 11/19/22 19:45 89 16 11/19/22 19:30 75 19 130/64 11/19/22 19:15 70 16 130/64 11/19/22 19:00 60 25 H 132/82 11/19/22 18:30 62 25 H 132/82 11/19/22 18:00 71 17 142/92 11/19/22 17:45 11/19/22 17:34 97.2 F L 71 22 142/92 11/19/22 17:00 68 16 11/19/22 16:45 64 16 11/19/22 16:30 68 16 11/19/22 16:15 76 16 11/19/22 16:00 75 18 11/19/22 15:45 76 16 11/19/22 15:30 96.8 F L 75 16 11/19/22 10:51 72 18 11/19/22 10:02 11/19/22 07:54 98.1 F 76 18 11/19/22 04:00 97.9 F 98 18 BP BP BP Pulse Ox FiO2 11/20/22 01:15 93 L 11/20/22 01:00 92 L 11/20/22 00:45 91 L 11/20/22 00:30 91 L 11/20/22 00:15 91 L 11/20/22 00:06 93 L 11/20/22 00:00 91 L 11/19/22 23:45 90 L 11/19/22 23:30 91 L 11/19/22 23:15 92 L 11/19/22 23:00 91 L 11/19/22 22:45 92 L 11/19/22 22:30 91 L 11/19/22 22:15 91 L 11/19/22 22:00 93 L 11/19/22 21:45 93 L 11/19/22 21:30 93 L 11/19/22 21:15 94 L 11/19/22 21:00 11/19/22 20:45 92 L 11/19/22 20:30 92 L 11/19/22 20:15 92 L 11/19/22 20:00 94 L 11/19/22 19:45 95 11/19/22 19:30 94 L 11/19/22 19:15 94 L 11/19/22 19:00 94 L 11/19/22 18:30 94 L 11/19/22 18:00 96 11/19/22 17:45 96 11/19/22 17:34 95 11/19/22 17:00 144/58 151/77 99 21 11/19/22 16:45 143/62 138/70 100 11/19/22 16:30 134/67 126/64 100 11/19/22 16:15 109/69 98/60 99 11/19/22 16:00 121/60 104/57 99 11/19/22 15:45 123/68 100 11/19/22 15:30 120/65 96 11/19/22 10:51 142/76 98 11/19/22 10:02 96 11/19/22 07:54 127/79 96 11/19/22 04:00 130/80 98 Intake and Output 11/19/22 11/19/22 11/20/22 14:59 22:59 06:59 Intake Total 400 510.796 218.309 Output Total 1300 Balance 400 -789.204 218.309 Intake: IV 400 450 150 Sodium Chloride 0.9% 1, 250 150 000 ml @ 50 mls/hr IV . Q20H [facility] Rx#:[id number] Intake, IV Titration 60.796 68.309 Amount Phenylephrine 40 mg In 60.796 68.309 Sodium Chloride 0.9% 250 ml @ 0.5 MCG/KG/MIN 18. 783 mls/hr IV .[id number] [facility] Rx#:[id number] Output: Urine 1300 Straight 650 Other: Voiding Method Toilet # Voids 0 0 Weight 98.6 kg 98.6 kg ABP, PAP, CO, CI - Last 8 Hours Arterial Blood Pressure 134/58 Arterial Blood Pressure 139/69 Arterial Blood Pressure 143/57 Arterial Blood Pressure 153/61 Arterial Blood Pressure 152/63 Arterial Blood Pressure 165/67 Arterial Blood Pressure 153/61 Arterial Blood Pressure 130/53 Arterial Blood Pressure 142/61 Arterial Blood Pressure 143/58 Arterial Blood Pressure 156/61 Arterial Blood Pressure 158/68 Arterial Blood Pressure 121/48 Arterial Blood Pressure 135/57 Arterial Blood Pressure 159/73 Arterial Blood Pressure 149/57 Arterial Blood Pressure 150/68 Arterial Blood Pressure 135/51 Arterial Blood Pressure 137/52 Arterial Blood Pressure 154/69 Arterial Blood Pressure 149/60 Arterial Blood Pressure 144/63 Arterial Blood Pressure 157/66 Arterial Blood Pressure 164/77 Arterial Blood Pressure 165/73 Arterial Blood Pressure 157/68 Arterial Blood Pressure 148/60 Arterial Blood Pressure 141/66 Arterial Blood Pressure 139/78 Arterial Blood Pressure 148/78 GENERAL EXAM: Alert, 82-year-old male, comfortable in no apparent distress. HEAD: Normocephalic and atraumatic EYES: Normal reaction of pupils, equal size. Left eye ptosis NOSE: Clear with pink turbinates. THROAT: No erythema or exudates. NECK: No masses, no JVD. CHEST: No chest wall deformity. LUNGS: Equal air entry with bilateral inspiratory crackles. No wheeze, rhonchi or dullness. On room air. No conversational dyspnea or accessory muscle use.. CVS: S1 and S2 normal with no audible murmur, regular rhythm. No extra heart sounds ABDOMEN: No hepatosplenomegaly, active bowel sounds, no guarding or rigidity. SPINE: No scoliosis or deformity SKIN: No rashes CENTRAL NERVOUS SYSTEM: No focal deficits, tone is normal in all 4 extremities. Bilateral extremities have 5/5 motor strength. DTRs are 1+ bilaterally EXTREMITIES: There is no peripheral edema, clubbing, or cyanosis. Peripheral pulses are intact. Results - Laboratory Findings CBC and BMP: 11/19/22 06:37 11/19/22 06:37 PT/INR, D-dimer PT 9.8 sec (9.0-12.0) 11/12/22 16:21 INR 0.9 (<1.2) 11/12/22 16:21 Abnormal lab findings: Abnormal Labs 11/12/22 11/12/22 11/12/22 16:21 16:21 16:21 Plt Count 128 L APTT 20.9 L Sodium 135 L Carbon Dioxide 20 L BUN 29 H Glucose Hemoglobin A1c ALT Cholesterol LDL Cholesterol, Calc HDL Cholesterol TSH 11/12/22 11/13/22 11/13/22 16:21 12:52 12:52 Plt Count APTT Sodium Carbon Dioxide BUN Glucose Hemoglobin A1c 6.2 H ALT Cholesterol 206.00 H LDL Cholesterol, Calc 145.4 H HDL Cholesterol 31.00 L TSH 4.820 H 11/14/22 11/15/22 11/15/22 12:11 08:21 08:21 Plt Count 141 L APTT Sodium 136 L 135 L Carbon Dioxide BUN 21 H 22 H Glucose 102 H Hemoglobin A1c ALT Cholesterol LDL Cholesterol, Calc HDL Cholesterol TSH 11/16/22 11/16/22 11/19/22 08:05 08:05 06:37 Plt Count 135 L 145 L APTT Sodium 133 L Carbon Dioxide BUN 28 H Glucose 120 H Hemoglobin A1c ALT Cholesterol LDL Cholesterol, Calc HDL Cholesterol TSH 11/19/22 06:37 Plt Count APTT Sodium 133 L Carbon Dioxide BUN 28 H Glucose Hemoglobin A1c ALT 51 H Cholesterol LDL Cholesterol, Calc HDL Cholesterol TSH - Diagnostic Findings Chest x-ray: image reviewed Assessment and Plan Assessment: Acute CVA with left-sided hemiparesis which is improved. Patient did not receive TPA on arrival, due to improvement in symptoms and an NIH of 1. Brain CT without contrast on arrival showed no acute intracranial process. Follow-up brain CTA showed 50-70% stenosis of the right proximal ICA and 70% stenosis of the left proximal ICA. There was also 50% stenosis of the left vertebral artery. There was no evidence of intracranial aneurysm, dissection, or high- grade stenosis. Brain MRI did confirm scattered right CVA foci within the right srivastava radiata and right centrum semiovale involving the posterior right frontal lobe and parietal region. Bilateral carotid artery stenosis status post operative day #1 for right trans- carotid artery revascularization and stenting. The patient was hypotensive following the procedure, requiring vasopressor support. Postoperative hypotension Ischemic cardiomyopathy with an ejection fraction of 25-30%. Coronary artery disease with previous cardiac stents Essential hypertension Hyperlipidemia BPH Remote ex-smoker Plan: Patient's medications, labs, chest x-ray reviewed On room air Continue Leon-Synephrine infusion for hypotension Continue antiplatelet medications per vascular surgery Continue statin Hold antihypertensives Heparin for DVT prophylaxis Pepcid for GI prophylaxis We will continue to monitor patient in intensive care I have personally seen and examined the patient, performed the documentation and the assessment and plan as written. Number of minutes spent on the visit:20 t. Time with Patient: Greater than 30
[2022-11-20] MEDS: PHENYLEPHRINE 40 MG in SODIUM CHLORIDE 0.9% 250 ML IV SCH (03:55)
[2022-11-20 04:44] LABS: Basophils % (A) 0 %; Eosinophils # (A) 0.1 k/uL (0-0.7); Eosinophils % (A) 1 %; HCT 41.2 % (39.0-53.0); HGB 13.6 gm/dL (13.0-17.5); Lymphocytes # (A) 1.8 k/uL (1.0-4.8); Lymphocytes % (A) 23 %; MCH 28.6 pg (25.0-35.0); MCHC 33.1 g/dL (31.0-37.0); MCV 86.3 fL (80.0-100.0); Mean Platelet Volume 8.5; Monocytes # (A) 0.4 k/uL (0-1.0); Monocytes % (A) 6 %; Neutrophils # (A) 5.3 k/uL (1.3-7.7); Neutrophils % (A) 69 %; Platelet Count 165 k/uL (150-450); RBC 4.77 m/uL (4.30-5.90); RDW 14.1 % (11.5-15.5); WBC 7.7 k/uL (3.8-10.6)
[2022-11-20 04:55] LABS: African American GFR (CKD) 84 (>60 ml/min/1.73 sqM); Anion Gap 10 mmol/L; Blood Urea Nitrogen 29 mg/dL (9-20); Calcium 8.5 mg/dL (8.4-10.2); Carbon Dioxide 18 mmol/L (22-30); Chloride 105 mmol/L (98-107); Glucose 87 mg/dL (74-99); Non-African American GFR(CKD) 73 (>60 ml/min/1.73 sqM); Potassium 3.8 mmol/L (3.5-5.1); Sodium 133 mmol/L (137-145)
[2022-11-20] MEDS ORDERED: Potassium Replacement Protocol 1 EACH MISC MISCELLANE PRN (05:38)
[2022-11-20] MEDS ORDERED: POTASSIUM CHLORIDE ER 20 MEQ TAB.ER PO SCH (06:00)
[2022-11-20] MEDS: SODIUM CHLORIDE 0.9% 1,000 ML IV SCH (06:38)
[2022-11-20] MEDS: carvediloL 6.25 MG TAB PO SCH ×2 (07:39→18:54)
[2022-11-20] MEDS: FAMOTIDINE 20 MG TAB PO SCH ×2 (08:38→20:48)
[2022-11-20] MEDS: HEPARIN SODIUM,PORCINE/PF 5,000 UNIT/0.5 ML SYRINGE SQ SCH ×2 (08:38→20:48)
[2022-11-20] MEDS: CLOPIDOGREL 75 MG TAB PO SCH (08:38)
[2022-11-20] MEDS: ASPIRIN 325 MG TAB PO SCH (08:38)
[2022-11-20] MEDS: prednisoLONE ACETATE 1% OPHTH DROPS 5 ML BTL LEFT EYE SCH (08:43)
[2022-11-20] MEDS: TAMSULOSIN 0.4 MG CAP.ER.24H PO SCH (08:45)
[2022-11-20] MEDS: DEXMEDETOMIDINE/0.9% NACL(PMX) 400 MCG in EMPTY BAG 1 BAG IV SCH (09:26)
[2022-11-20] MEDS: FUROSEMIDE 40 MG TAB PO SCH (11:06)
--- NOTE | 2022-11-20 11:31 | P.PN ---
Subjective Progress Note Date: 11/20/22 Principal diagnosis: Carotid stenosis Patient seen and examined in the ICU. He is postop day #1 for right trans- carotid artery revascularization. Patient was hypotensive postprocedure and was started on Leon-synephrine infusion and admitted to PICU for close observation, and currently is still maintained on it. He is without any complaints at this time. No shortness of breath, chest pain, no complaints of any focal deficits. Objective - Vital Signs Vital signs: Vital Signs Temp 97.9 F 11/20/22 08:00 Pulse 63 11/20/22 08:30 Resp 17 11/20/22 08:30 BP 118/62 11/20/22 08:30 Pulse Ox 93 L 11/20/22 08:30 FiO2 21 11/19/22 17:00 Intake & Output 11/19/22 11/20/22 11/20/22 18:59 06:59 18:59 Intake Total 650 1218.952 487.520 Output Total 1300 760 0 Balance -650 458.952 487.520 Weight 98.6 kg 93.8 kg Intake: IV 650 600 100 Sodium Chloride 0.9% 1, 50 600 100 000 ml @ 50 mls/hr IV . Q20H [facility] Rx#:[id number] Intake, IV Titration 218.952 187.520 Amount Phenylephrine 40 mg In 218.952 187.520 Sodium Chloride 0.9% 250 ml @ 0.5 MCG/KG/MIN 18. 783 mls/hr IV .[id number] [facility] Rx#:[id number] Oral 400 200 Output: Urine 1300 760 0 Straight 650 760 Other: Voiding Method Toilet Urinal # Voids 0 0 # Bowel Movements 0 ABP, PAP, CO, CI - Last Documented Arterial Blood Pressure 132/57 - Exam General appearance: The patient is alert, oriented, appears in no acute distress. HET: Head is normocephalic and atraumatic. Pupils are equal and reactive. Neck: Supple. Right incision well approximated, no hematoma. Heart: Regular. Lungs: Equal expansion, normal respiratory effort. Abdomen: Soft, nontender, nondistended. Extremities: Normal skin color and turgor. Palpable bilateral radial and DP pulses. Neurological: Alert and oriented 3. No focal deficits. - Labs CBC & Chem 7: 11/20/22 04:00 11/20/22 09:49 Labs: Abnormal Lab Results - Last 24 Hours (Table) 11/20/22 Range/Units 04:00 Sodium 133 L (137-145) mmol/L Carbon Dioxide 18 L (22-30) mmol/L BUN 29 H (9-20) mg/dL Assessment and Plan Assessment: 1. Right-sided symptomatic ICA stenosis status post trans-carotid artery revascularization 2. Postoperative hypotension 3. Acute ischemic stroke 4. 70% left ICA stenosis 5. Coronary artery disease with history of myocardial infarction and cardiac stents 6. Heart failure, EF 25-30% 7. Hypertension and hyperlipidemia 8. BPH 9. Thyroid disorder Plan: 1. Patient may have heart healthy diet 2. Encourage Activity as tolerated 3. Flomax added 4. Continue with ICU recommendations 5. Continue with recommendations from cardiology 6. Continue aspirin, Plavix, statin The impression and plan of care has been dictated as directed. I performed a history and examination of this patient, discussed the same with the dictator. I agree with the dictator's note ,documented as a scribe. Any additional findings or plans will be noted.
--- NOTE | 2022-11-20 12:45 | PN ---
PROGRESS NOTE HISTORY OF PRESENT ILLNESS: This is an 82-year-old gentleman, who is admitted to hospital with CVA. He has severe right carotid artery disease, for which he underwent right carotid stenting. This morning, he is feeling better. PHYSICAL EXAMINATION: GENERAL: Comfortable at rest. VITAL SIGNS: Stable. CHEST: Reveals good air entry bilaterally. HEART: Reveals first and second heart sounds. Systolic murmur at the apex. ABDOMEN: Soft. EXTREMITIES: Did not reveal any edema. LABORATORY DATA: Labs show a hemoglobin of 15.6, potassium is 3.8, creatinine 0.96. ASSESSMENT: 1. Cerebrovascular accident, status post right carotid stenting. 2. Ischemic cardiomyopathy. 3. Coronary artery disease. PLAN: The patient will continue the aspirin, Lipitor, Coreg, Plavix, Cardura, and Lasix that he is currently on. MMODL / IJN: [id number] /
--- NOTE | 2022-11-20 15:16 | P.PN ---
Subjective Progress Note Date: 11/20/22 patient is a 82-year-old gentleman with past medical history significant for hypertension brought to the hospital because of left-sided weakness. Patient stated that he was out shopping when after returning home he started feeling unwell he went down to sit on the bed and noted that he started developing left- sided weakness involving both his arm and leg, there was no evidence of any slurred speech, no pain of any facial droop. Patient called EMS and was brought to the ER. The patient was worked up in the ER, his weakness had improved, NIH improved to 1. Initial lab work done in the ER showed WBC 8.2, hemoglobin 14.4, platelet count 128, sodium 135, potassium 4.4, BUN 29, creatinine 1.11, CT brain negative for any acute intracranial process CT angiogram head and neck showed greater than 70% stenosis of the left proximal internal carotid artery and 50%-70% stenosis of right proximal internal carotid artery Case was discussed by ER with the monogram technician stroke team, patient was not a candidate for any TPA, they recommended inpatient admission with consult to neurology On discussion with patient's , patient still having left-sided leg weakness, status left upper extremity weakness has improved. Denies any slurred speech. 11/14. Patient seen and examined. States weakness of left lower extremity is improving 11/15. Patient seen and examined. Patient states weakness of left lower ext remity has improved a lot. Working with PT and OT 11/16. Patient seen and examined. No acute issues overnight. 11/17. Patient seen and examined laying comfortably in the bed. Denies any lightheadedness or dizziness. Vital signs stable 11/18. Patient seen and examined. Temperature 97.8, heart rate 66, blood pressure 140/79. No acute issues overnight. Patient ready for carotid endarterectomy for tomorrow 11/19. Patient seen and examined. WBC 5.4, hemoglobin 14.2, sodium 133, potassium 4.2,. Going for carotid endarterectomy today 11/20. Patient seen and examined. Patient underwent carotid endarterectomy yesterday. Currently sitting comfortably in the bed. Denies any lightheaded ness or dizziness. Vital signs stable REVIEW OF SYSTEMS: CONSTITUTIONAL: No fever, no malaise,. CARDIOVASCULAR: No chest pain, no palpitations, no syncope. PULMONARY: No shortness of breath, no cough, GASTROINTESTINAL: No diarrhea, no nausea, no vomiting, no abdominal pain. NEUROLOGICAL: No headaches, PHYSICAL EXAMINATION: GENERAL: The patient is alert and oriented x3, not in any acute distress. Well developed, well nourished. HEENT: Pupils are round and equally reacting to light. EOMI. No scleral icterus. No conjunctival pallor. Normocephalic, atraumatic. No pharyngeal erythema. No thyromegaly. Right-sided carotid endarterectomy incision seen CARDIOVASCULAR: S1 and S2 present. No murmurs, rubs, or gallops. PULMONARY: Chest is clear to auscultation, no wheezing or crackles. ABDOMEN: Soft, nontender, nondistended, normoactive bowel sounds. No palpable o rganomegaly. MUSCULOSKELETAL: No joint swelling or deformity. EXTREMITIES: No cyanosis, clubbing, or pedal edema. NEUROLOGICAL: Gross neurological examination did not reveal any focal deficits. Muscle strength is 4 x 5 in left lower extremity, 5 x 5 in rest SKIN: No rashes. Assessment and plan Acute CVA Symptomatic right ICA A symptomatic left ICA of greater than 70% Hypertension Ischemic cardiomyopathy chronic systolic CHF Plan; Monitor vital signs Monitor CBC Monitor CMP Continue neuro checks Echocardiogram reveals EF of 25-30% with mild increased left ventricular wall thickness. Mild to moderate dilated left atrium, trace to mild tricuspid regurgitation. Ultrasound of carotids showed extensive atherosclerotic plaque with findings consistent of 50-69% stenosis of left ICA MRI brain showed scattered right CVA foci within the right srivastava radiata and right centrum semiovale involving the posterior right frontal lobe and parietal region Continue aspirin 325 per neurology , Plavix Currently on sandra syn for hyportension, being weaned off it Continue Lipitor 40 mg daily at bedtime for secondary stroke prophylaxis, goal of LDL <70 in stroke Cardiology evaluated the patient and recommended Coreg and losartan, currently blood pressure medication on hold secondary to hypotension Follow-up on vascular surgery recommendations, right-sided carotid arterectomy done on 11/19 postop management per vascular surgery DVT prophylaxis: Objective - Vital Signs Vital signs: Vital Signs Temp 97.9 F 11/20/22 08:00 Pulse 63 11/20/22 08:30 Resp 17 11/20/22 08:30 BP 118/62 11/20/22 08:30 Pulse Ox 93 L 11/20/22 08:30 FiO2 21 11/19/22 17:00 Intake & Output 11/19/22 11/20/22 11/20/22 18:59 06:59 18:59 Intake Total 650 1218.952 487.520 Output Total 1300 760 0 Balance -650 458.952 487.520 Weight 98.6 kg 93.8 kg Intake: IV 650 600 100 Sodium Chloride 0.9% 1, 50 600 100 000 ml @ 50 mls/hr IV . Q20H [facility] Rx#:[id number] Intake, IV Titration 218.952 187.520 Amount Phenylephrine 40 mg In 218.952 187.520 Sodium Chloride 0.9% 250 ml @ 0.5 MCG/KG/MIN 18. 783 mls/hr IV .[id number] [facility] Rx#:[id number] Oral 400 200 Output: Urine 1300 760 0 Straight 650 760 Other: Voiding Method Toilet Urinal # Voids 0 0 # Bowel Movements 0 ABP, PAP, CO, CI - Last Documented Arterial Blood Pressure 132/57 - Labs CBC & Chem 7: 11/20/22 04:00 11/20/22 09:49 Labs: Abnormal Lab Results - Last 24 Hours (Table) 11/20/22 Range/Units 04:00 Sodium 133 L (137-145) mmol/L Carbon Dioxide 18 L (22-30) mmol/L BUN 29 H (9-20) mg/dL
[2022-11-20] MEDS: HYDROcodone/APAP 7.5-325MG 1 EACH TAB PO PRN (20:34)
[2022-11-20] MEDS: ATORVASTATIN 40 MG TAB PO SCH (20:48)
[2022-11-20] MEDS: DOXAZOSIN 4 MG TAB PO SCH (20:51)
[2022-11-21] MEDS: DOCUSATE 100 MG CAP PO SCH ×2 (00:25→09:50)
[2022-11-21] MEDS: carvediloL 6.25 MG TAB PO SCH (06:20)
[2022-11-21 07:29] LABS: Basophils % (A) 0 %; Eosinophils # (A) 0.3 k/uL (0-0.7); Eosinophils % (A) 4 %; HCT 40.7 % (39.0-53.0); HGB 13.2 gm/dL (13.0-17.5); Lymphocytes # (A) 2.1 k/uL (1.0-4.8); Lymphocytes % (A) 31 %; MCH 28.1 pg (25.0-35.0); MCHC 32.3 g/dL (31.0-37.0); MCV 86.9 fL (80.0-100.0); Mean Platelet Volume 8.4; Monocytes # (A) 0.4 k/uL (0-1.0); Monocytes % (A) 6 %; Neutrophils # (A) 3.9 k/uL (1.3-7.7); Neutrophils % (A) 57 %; Platelet Count 125 k/uL (150-450); RBC 4.69 m/uL (4.30-5.90); RDW 14.1 % (11.5-15.5); WBC 6.8 k/uL (3.8-10.6)
[2022-11-21 08:07] LABS: African American GFR (CKD) 81 (>60 ml/min/1.73 sqM); Anion Gap 8 mmol/L; Blood Urea Nitrogen 28 mg/dL (9-20); Calcium 8.5 mg/dL (8.4-10.2); Carbon Dioxide 24 mmol/L (22-30); Chloride 101 mmol/L (98-107); Glucose 101 mg/dL (74-99); Non-African American GFR(CKD) 70 (>60 ml/min/1.73 sqM); Sodium 133 mmol/L (137-145)
[2022-11-21 08:24] LABS: Potassium 4.3 mmol/L (3.5-5.1)
[2022-11-21 09:49] VITALS: RESP 16; TEMP 97.8
[2022-11-21] MEDS: TAMSULOSIN 0.4 MG CAP.ER.24H PO SCH (09:50)
[2022-11-21] MEDS: HEPARIN SODIUM,PORCINE/PF 5,000 UNIT/0.5 ML SYRINGE SQ SCH (09:50)
[2022-11-21] MEDS: ASPIRIN 325 MG TAB PO SCH (09:50)
[2022-11-21] MEDS: FUROSEMIDE 40 MG TAB PO SCH (09:50)
[2022-11-21] MEDS: FAMOTIDINE 20 MG TAB PO SCH (09:50)
[2022-11-21] MEDS: prednisoLONE ACETATE 1% OPHTH DROPS 5 ML BTL LEFT EYE SCH (09:50)
--- NOTE | 2022-11-21 10:08 | P.GSCN ---
History of Present Illness Consult date: 11/21/22 Reason for Consult: urinary retention History of present illness: This is a 82 yo male S/P Carotid endarterectomy, urology is consulted for ur inary retention. Patient has a Potts catheter placed yesterday for retention. He indicated to baseline he does have obstructive urinary symptoms and does strain to void and has urinary frequency. He was placed on Flomax by his primary care physician. Denies any previous history of urinary retention recurrent UTIs or kidney stones. Potts catheter is currently in place draining clear yellow urine Review of Systems - Constitutional Denies fever, Denies weight loss - Cardiovascular Denies chest pain, Denies shortness of breath - Respiratory Denies cough, Denies 7 - Gastrointestinal Reports as per HPI - Genitourinary Denies dysuria Past Medical History Past Medical History: Coronary Artery Disease (CAD), Heart Failure, GERD/Reflux, Hyperlipidemia, Hypertension, Myocardial Infarction (NM), Musculoskeletal Disorder, Osteoarthritis (OA), Prostate Disorder, Thyroid Disorder Additional Past Medical History / Comment(s): Lumbar disc disease, HERNIATED DISC IN BACK. Diverticular disease with diverticulosis, BPH, NM X2, unknown dates. Last Myocardial Infarction Date:: UNK History of Any Multi-Drug Resistant Organisms: None Reported Past Surgical History: Adenoidectomy, Heart Catheterization With Stent, Joint Replacement, Tonsillectomy Additional Past Surgical History / Comment(s): LEFT KNEE REPLACMENT. Colonoscopy with polypectomy, epidural steroid injections. Past Anesthesia/Blood Transfusion Reactions: No Reported Reaction Date of Last Stent Placement:: UNK Past Psychological History: No Psychological Hx Reported Smoking Status: Former smoker Past Alcohol Use History: Rare Past Drug Use History: None Reported - Past Family History Sister(s) Family Medical History: Cancer Additional Family Medical History / Comment(s): Pancreatic cancer. Father History Unknown: Yes Family Medical History: Cancer Mother History Unknown: Yes Family Medical History: Congestive Heart Failure (CHF) Additional Family Medical History / Comment(s): AT AGE 94. Medications and Allergies Home Medications Medication Instructions Recorded Confirmed Type Metoprolol Tartrate 25 mg PO BID 06/02/15 11/12/22 History Terazosin HCl 5 mg PO HS 06/02/15 11/12/22 History Nitroglycerin Sl Tabs [Nitrostat] 0.4 mg SUBLINGUAL Q5M PRN #25 tab 06/04/15 11/12/22 Rx Aspirin 81 mg PO DAILY 09/19/15 11/12/22 History Prednisolone Acetate/Pf 1 drop LEFT EYE DAILY 03/20/20 11/12/22 History [Prednisolone Acet 1% Eye Drop] Tamsulosin [Flomax] 0.4 mg PO DAILY 03/20/20 11/12/22 History Baclofen 5 - 10 mg PO BID PRN 11/12/22 11/12/22 History Furosemide [Lasix] 40 mg PO DAILY 11/12/22 11/12/22 History HYDROcodone/APAP 7.5-325MG [[place] 1 tab PO Q8H PRN 11/12/22 11/12/22 History 7.5-325] Losartan [Cozaar] 50 mg PO DAILY 11/12/22 11/12/22 History Allergies Allergy/AdvReac Type Severity Reaction Status Date / Time No Known Allergies Allergy Verified 11/12/22 18:57 Surgical - Exam Vital Signs Pulse Resp BP Pulse Ox 68 22 166/84 97 11/12/22 16:30 11/12/22 16:30 11/12/22 16:30 11/12/22 16:30 - General no distress, no pain - ENT normal nares, normal mucosa - Respiratory normal expansion, normal respiratory effort - Abdomen Abdomen: soft, non tender, no distended - Genitourinary normal penis with no external lesions, testicles present, testicles non-tender - Psychiatric oriented to time, oriented to person, oriented to place Results - Labs 11/21/22 07:08 11/21/22 07:08 Abnormal Lab Results - Last 24 Hours (Table) 11/21/22 11/21/22 Range/Units 07:08 07:08 Plt Count 125 L (150-450) k/uL Sodium 133 L (137-145) mmol/L BUN 28 H (9-20) mg/dL Glucose 101 H (74-99) mg/dL Diabetes panel 11/20/22 11/21/22 Range/Units 09:49 07:08 Sodium 133 L (137-145) mmol/L Potassium 4.1 4.3 (3.5-5.1) mmol/L Chloride 101 (98-107) mmol/L Carbon Dioxide 24 (22-30) mmol/L BUN 28 H (9-20) mg/dL Creatinine 0.99 (0.66-1.25) mg/dL Glucose 101 H (74-99) mg/dL Calcium 8.5 (8.4-10.2) mg/dL Calcium panel 11/21/22 Range/Units 07:08 Calcium 8.5 (8.4-10.2) mg/dL Pituitary panel 11/20/22 11/21/22 Range/Units 09:49 07:08 Sodium 133 L (137-145) mmol/L Potassium 4.1 4.3 (3.5-5.1) mmol/L Chloride 101 (98-107) mmol/L Carbon Dioxide 24 (22-30) mmol/L BUN 28 H (9-20) mg/dL Creatinine 0.99 (0.66-1.25) mg/dL Glucose 101 H (74-99) mg/dL Calcium 8.5 (8.4-10.2) mg/dL Adrenal panel 11/20/22 11/21/22 Range/Units 09:49 07:08 Sodium 133 L (137-145) mmol/L Potassium 4.1 4.3 (3.5-5.1) mmol/L Chloride 101 (98-107) mmol/L Carbon Dioxide 24 (22-30) mmol/L BUN 28 H (9-20) mg/dL Creatinine 0.99 (0.66-1.25) mg/dL Glucose 101 H (74-99) mg/dL Calcium 8.5 (8.4-10.2) mg/dL Assessment and Plan Assessment: 82-year-old male with urinary retention. Does have obstructive urinary symptoms at baseline. On flomax at baseline. I discussed with him I recommend keeping in the catheter for 1 week to allow for bladder decompression,. Patient does not want to go home with the Potts catheter. at this time we can repeat trial of void this morning. If patient able to void and postvoid residuals less than 400 then he can be discharged without Potts catheter. But his postvoid is greater than 400 then Potts catheter can be reinserted and he can follow-up as an outpatient in our office in 7-10 days.
[2022-11-21] MEDS: CLOPIDOGREL 75 MG TAB PO SCH (10:21)
--- NOTE | 2022-11-21 10:30 | CDI ---
Documentation Clarification Form Date: 11/21/2022 09:19:46 AM From: Ember Mckenzie RN, CCDS Admit Date: 11/12/2022 06:01:00 PM Patient Name: Ba Sanchez Visit Number: [id number] Discharge Date: ATTENTION: The Clinical Documentation Specialists (CDI) and [facility] Coding Staff appreciate your assistance in clarifying documentation. Please respond to the clarification below the line at the bottom and electronically sign. The CDI & [facility] Coding staff will review the response and follow-up if needed. Please note: Queries are made part of the Legal Health Record. If you have any questions, please contact the author of this message via ITS. Dr. Desiree Potts Postoperative hypotension is documented in the pulmonary consult on 11/20/2022 and patient had Right Transcarotid artery revascularization with stenting on 11/19/2022. Additional clarification is requested regarding the relationship, if any, that exists between the diagnosis and the procedure. 11/20 Pulmonary progress notes: Patient is status post right Transcarotid artery revascularization and stenting with postoperative hypotension requiring Leon- Synephrine, and will continue to monitor in the ICU. His arterial line pressure is not accurate mostly because the waveform does not seem to be in normal waveform, and it is not correlating with the cuff pressure. Patients Preoperative Diagnosis: Symptomatic right internal carotid artery stenosis Ischemic cardiomyopathy EF 25-30%, coronary artery disease Post-Operative Diagnosis: Same Procedure performed: Right Transcarotid artery revascularization with stenting History/Risk Factors: Hypertension, Ischemic cardiomyopathy, chronic systolic CHF Clinical Indicators: 82-year-old male present with left-sided weakness. He was worked up in ER. CT angiogram head and neck showed greater than 70% stenosis of the left proximal internal carotid artery and 50-70% stenosis of right proximal internal carotid artery. He was ruled in for Acute CVA, symptomatic right and left ICA of greater than70& 11/19 Right Transcarotid artery revascularization with stenting (Procedure end time 15:08 11/19 VS: (15:30) 120/65 75 16 96% 2/L, (15:45) 123/68 76 16 100 % 2/L, (16:15) 98/60 76 16 99% 2/L NC (16:30) 126/64 68 16 100 % 2 L NC, 11/20 VS: (03:15) 118/65 75 22 95% RA, (03:30) 97/60 75 21, (03:45 129/50 61 14 91% Treatment: ICU/Telemetry monitoring Leon-Synephrine Drip per orders 11/19-11/20 .9NS IV@ 50 MLS/HR 11/19-11/20 ASA 325 MG PO Daily, Lipitor 40 MG PO HS, Coreg 6.25 MG PO BID, Plavix 75MG PO Daily, Cardura 4 MG PO HS, Lasix 40 MG PO Daily 11/20 Cardiology progress note: The patient will continue the aspirin, Lipitor, Coreg, Plavix, Cordur, and Lasix that he is currently on. What relationship, if any, exists between the diagnosis of Postoperative Hypotension and the procedure? [ ] Postoperative Hypotension is a complication of surgical procedure. [xx ] Postoperative Hypotension is an expected occurrence of the surgical procedure. [ ] Postoperative Hypotension is related to patients co-morbid condition(s) of [insert co-morbid dxs] & not a complication of the procedure. [ ] Other please specify ____ [ ] Unable to determine (Template Last Revised: July 2020) MTDD
--- NOTE | 2022-11-21 11:50 | P.PN ---
Subjective Progress Note Date: 11/21/22 Principal diagnosis: Acute CVA with left-sided hemiparesis I am seeing this patient in new consultation today 11/20/2022 in the intensive care unit for CVA and postoperative management following a right TCAR postoperative day #1. Patient is a 82-year-old white male with past medical history significant for coronary artery disease with four prior cardiac stents, hypertension, hyperlipidemia, BPH, and is a remote ex-smoker. Patient presented to the emergency room back on November 12 for concerns of left-sided weakness. Apparently, the patient had been out shopping and noticed some left-sided weakness. He presented to the emergency room approximately one hour after sympt oms started. His left-sided hemiparesis spontaneously improved, and he did not receive TPA. NIH on arrival was 1. Brain CT without contrast on arrival showed no acute intracranial process. Follow-up brain CTA showed 50-70% stenosis of the right proximal ICA and 70% stenosis of the left proximal ICA. There was also 50% stenosis of the left vertebral artery. There was no evidence of intracranial aneurysm, dissection, or high-grade stenosis. Brain MRI did confirm scattered right CVA foci within the right srivastava radiata and right centrum semiovale involving the posterior right frontal lobe and parietal region. A transthoracic echo showed a reduced ejection fraction of 25-30%. The patient's right ICA stenosis was felt to be symptomatic, and the patient did undergo right trans-carotid artery revascularization with stenting yesterday. No immediate perioperative complications reported. The patient was hypotensive following the procedure, and was started on a Leon-Synephrine infusion which is currently infusing at 0.7 mcg/kg/m. Patient also has normal saline infusing at 50 mL per hour. Patient is currently sitting up in bed, on room air, in no acute distress. His left-sided hemiparesis appears to have resolved. He is on a combination of Plavix and aspirin. CBC and BMP from yesterday were unremarkable. Troponins on arrival were negative 3. Patient will be monitored in the intensive care unit. Reevaluated today on 11/21/2022, patient is doing great, he is now on the medical floor, not in any distress, I believe the patient is being considered positive for discharge home today if cleared by all consultants on the case. Pulmonary- castillo I will clear the patient for certain. Objective - Vital Signs Vital signs: Vital Signs Temp 97.8 F 11/21/22 08:00 Pulse 68 11/21/22 08:00 Resp 16 11/21/22 08:00 BP 151/71 11/21/22 08:00 Pulse Ox 96 11/21/22 08:52 FiO2 21 11/19/22 17:00 Intake & Output 11/20/22 11/21/22 11/21/22 18:59 06:59 18:59 Intake Total 723.171 40 678 Output Total 825 700 400 Balance -101.829 -660 278 Weight 91.5 kg Intake: IV 320 40 20 Invasive Line 3 40 20 10 Invasive Line 5 30 20 10 Sodium Chloride 0.9% 1, 250 000 ml @ 50 mls/hr IV . Q20H [facility] Rx#:[id number] Intake, IV Titration 203.171 Amount Phenylephrine 40 mg In 203.171 Sodium Chloride 0.9% 250 ml @ 0.5 MCG/KG/MIN 18. 783 mls/hr IV .[id number] [facility] Rx#:[id number] Oral 200 658 Output: Urine 825 700 400 Stool 0 Other: Voiding Method Indwelling Catheter Indwelling Catheter Indwelling Catheter # Voids 0 # Bowel Movements 1 ABP, PAP, CO, CI - Last Documented Arterial Blood Pressure 132/57 - Exam GENERAL EXAM: 82-year-old R room air in no distress HEAD: Normocephalic and atraumatic EYES: Normal reaction of pupils, equal size. Left eye ptosis NOSE: Clear with pink turbinates. THROAT: No erythema or exudates. NECK: No masses, no JVD. CHEST: No chest wall deformity. LUNGS: Symmetrical chest expansion, clear throughout no crackles or rhonchi or wheezes CVS: Normal S1 and S2, no S3 gallop. No murmur. ABDOMEN: No hepatosplenomegaly, active bowel sounds, no guarding or rigidity. SKIN: No rashes CENTRAL NERVOUS SYSTEM: Alert and oriented 3 no gross focal deficit EXTREMITIES: No clubbing edema or cyanosis - Labs CBC & Chem 7: 11/21/22 07:08 11/21/22 07:08 Labs: Abnormal Lab Results - Last 24 Hours (Table) 11/21/22 11/21/22 Range/Units 07:08 07:08 Plt Count 125 L (150-450) k/uL Sodium 133 L (137-145) mmol/L BUN 28 H (9-20) mg/dL Glucose 101 H (74-99) mg/dL Assessment and Plan Assessment: Impression: Acute CVA with left-sided hemiparesis, resolved. Status post right track as carotid artery revascularization and stenting postoperative day #2 Ischemic cardiomyopathy and LV dysfunction with ejection fraction of 25-30% Coronary arteriosclerosis and previous stent placement Benign essential hypertension Dyslipidemia Ex-smoker Recommendation: Continue present medications Continue GI and DVT prophylaxis Consider discharge planning if cleared by other consultants on the case. Will follow as needed Time with Patient: Less than 30
--- NOTE | 2022-11-21 12:01 | P.PN ---
Subjective Progress Note Date: 11/21/22 Principal diagnosis: Carotid stenosis Patient is seen and examined for follow-up for trans-carotid artery revascularization. He was transferred to the stepdown unit yesterday. Blood pressures have stabilized. He denies any focal deficits. No complaints of shortness of breath, chest pain, nausea or vomiting. Objective - Vital Signs Vital signs: Vital Signs Temp 98.2 F 11/21/22 04:10 Pulse 73 11/21/22 04:10 Resp 20 11/21/22 04:10 BP 138/70 11/21/22 04:10 Pulse Ox 96 11/21/22 08:52 FiO2 21 11/19/22 17:00 Intake & Output 11/20/22 11/21/22 11/21/22 18:59 06:59 18:59 Intake Total 723.171 40 678 Output Total 825 700 Balance -101.829 -660 678 Weight 91.5 kg Intake: IV 320 40 20 Invasive Line 3 40 20 10 Invasive Line 5 30 20 10 Sodium Chloride 0.9% 1, 250 000 ml @ 50 mls/hr IV . Q20H [facility] Rx#:[id number] Intake, IV Titration 203.171 Amount Phenylephrine 40 mg In 203.171 Sodium Chloride 0.9% 250 ml @ 0.5 MCG/KG/MIN 18. 783 mls/hr IV .[id number] [facility] Rx#:[id number] Oral 200 658 Output: Urine 825 700 Stool 0 Other: Voiding Method Indwelling Catheter Indwelling Catheter # Voids 0 # Bowel Movements 1 ABP, PAP, CO, CI - Last Documented Arterial Blood Pressure 132/57 - Exam General appearance: The patient is alert, oriented, appears in no acute distress. HET: Head is normocephalic and atraumatic. Pupils are equal and reactive. Neck: Supple. Right incision well approximated, no hematoma, some ecchymosis present. Heart: Regular. Lungs: Equal expansion, normal respiratory effort. Abdomen: Soft, nontender, nondistended. Extremities: Normal skin color and turgor. Palpable bilateral radial and DP pul ses. Neurological: Alert and oriented 3. No focal deficits. - Labs CBC & Chem 7: 11/21/22 07:08 11/21/22 07:08 Labs: Abnormal Lab Results - Last 24 Hours (Table) 11/21/22 11/21/22 Range/Units 07:08 07:08 Plt Count 125 L (150-450) k/uL Sodium 133 L (137-145) mmol/L BUN 28 H (9-20) mg/dL Glucose 101 H (74-99) mg/dL Assessment and Plan Assessment: 1. Right-sided symptomatic ICA stenosis status post trans-carotid artery revascularization 2. Postoperative hypotension, resolved 3. Acute ischemic stroke 4. 70% left ICA stenosis 5. Coronary artery disease with history of myocardial infarction and cardiac stents 6. Heart failure, EF 25-30% 7. Hypertension and hyperlipidemia 8. BPH 9. Thyroid disorder Plan: 1. Patient may have heart healthy diet 2. Encourage Activity as tolerated 3. Flomax added 4. Continue aspirin, Plavix, statin 5. The patient is cleared from vascular surgery for discharge. Follow-up in 2 weeks. Discharge instructions reviewed with patient. The impression and plan of care has been dictated as directed. I performed a history and examination of this patient, discussed the same with the dictator. I agree with the dictator's note ,documented as a scribe. Any additional findings or plans will be noted.
--- NOTE | 2022-11-21 13:11 | P.PN ---
Subjective Progress Note Date: 11/21/22 HISTORY OF PRESENT ILLNESS: This is an 82-year-old male who follows in the office with Dr. Ritter. Patient is admitted to the hospital secondary to acute CVA. Patient was found to have severe right ICA disease. He is scheduled for surgical intervention today with vascular surgery. He continues to report left lower extremity weakness. He denies chest pain or pressure. He denies shortness of breath. 11/21/2022 Patient is status post trans-carotid artery vascularization. Patient examined this might the bedside. Patient denies chest pain or pressure. He denies shortness of breath. Vital signs are stable. He is hoping to be discharged home today. PHYSICAL EXAM: VITAL SIGNS: Reviewed. GENERAL: Well-developed in no acute distress. NECK: Supple. No JVD or thyromegaly LUNGS: Respirations even and unlabored. Lungs essentially clear to auscultation bilaterally. HEART: Regular rate and rhythm. S1 and S2 heard. EXTREMITIES: Normal range of motion. No clubbing or cyanosis. Peripheral pulses intact. No lower extremity edema ASSESSMENT: Acute CVA Right internal carotid artery stenosis Ischemic cardiomyopathy, previous EF 45%, now 25-30% Coronary artery disease with previous stenting (x 4 per patient) Hypertension Hyperlipidemia PLAN: Continue current cardiac medications Patient is stable for discharge home today from a cardiac standpoint Nurse practitioner note has been reviewed by physician. Signing provider agrees with the documented findings, assessment, and plan of care. Objective - Vital Signs Vital signs: Vital Signs Temp 97.8 F 11/21/22 08:00 Pulse 68 11/21/22 08:00 Resp 16 11/21/22 08:00 BP 151/71 11/21/22 08:00 Pulse Ox 96 11/21/22 08:52 FiO2 21 11/19/22 17:00 Intake & Output 11/20/22 11/21/22 11/21/22 18:59 06:59 18:59 Intake Total 723.171 40 678 Output Total 825 700 400 Balance -101.829 -660 278 Weight 91.5 kg Intake: IV 320 40 20 Invasive Line 3 40 20 10 Invasive Line 5 30 20 10 Sodium Chloride 0.9% 1, 250 000 ml @ 50 mls/hr IV . Q20H [facility] Rx#:[id number] Intake, IV Titration 203.171 Amount Phenylephrine 40 mg In 203.171 Sodium Chloride 0.9% 250 ml @ 0.5 MCG/KG/MIN 18. 783 mls/hr IV .[id number] [facility] Rx#:[id number] Oral 200 658 Output: Urine 825 700 400 Stool 0 Other: Voiding Method Indwelling Catheter Indwelling Catheter Indwelling Catheter # Voids 0 # Bowel Movements 1 ABP, PAP, CO, CI - Last Documented Arterial Blood Pressure 132/57 - Labs CBC & Chem 7: 11/21/22 07:08 11/21/22 07:08 Labs: Abnormal Lab Results - Last 24 Hours (Table) 11/21/22 11/21/22 Range/Units 07:08 07:08 Plt Count 125 L (150-450) k/uL Sodium 133 L (137-145) mmol/L BUN 28 H (9-20) mg/dL Glucose 101 H (74-99) mg/dL
[2022-11-21 13:13] VITALS: BP 133/67; PULSE 62
--- NOTE | 2022-11-22 01:16 | P.DS ---
Providers Date of admission: 11/12/22 18:01 Attending physician: Reyna Mccloud Consults: 11/12/22 18:02 Consult Physician Routine Consulting Provider: Nohemy Norton Consult Reason/Comments: Right sided weakness Do you want consulting provider notified?: Yes 11/13/22 09:18 Consult Physician Routine Consulting Provider: Desiree Potts Consult Reason/Comments: Carotid artery stenosis, TIA Do you want consulting provider notified?: Yes 11/14/22 13:17 Consult Physician Routine Consulting Provider: Tristin Roe Consult Reason/Comments: Cardiac clearance for TCAR, possible carotid arterectomy endarterectomy Do you want consulting provider notified?: Yes 11/19/22 17:13 Consult Physician Routine Consulting Provider: Rolando Astudillo Consult Reason/Comments: post op TCAR, vasopressor infusion Do you want consulting provider notified?: Already Contacted 11/20/22 19:36 Consult Physician Routine Consulting Provider: Good Gutierrez Consult Reason/Comments: urinary retention Do you want consulting provider notified?: Yes, Notify in am Primary care physician: Armen Adames [facility] Course: Final Diagnosis Acute CVA with MRI positive for acute ischemic stroke posterior right frontal lobe and parietal region Symptomatic right ICA stenosis s/p trans carotid artery revascularization on 11/19/22 Left ICA stenosis of 70% History of coronary artery disease with prior [place] and cardiac stenting Hypertension Ischemic cardiomyopathy EF 25-30% Chronic systolic CHF History of BPH History of thyroid disorder Full Code Discharge Disposition Patient is stable for discharge home. Recommending to establish care with a neurologist on discharge. Neurology recommending to discharge on apsirin 325 mg daily as well as plavix 75 mg daily. Losartan has been discontinued on discharge. Patient to see vascular surgery in 2 weeks outpatient. Patient has been started on flomax. Repeat BMP in 2 to 3 days and follow up with primary provider Dr. Adames on discharge. Hospital Course patient is a 82-year-old gentleman with past medical history significant for hypertension brought to the hospital because of left-sided weakness. Patient stated that he was out shopping when after returning home he started feeling unwell he went down to sit on the bed and noted that he started developing left- sided weakness involving both his arm and leg, there was no evidence of any slurred speech, no pain of any facial droop. Patient called EMS and was brought to the ER. Weakness in the upper arm left sided had improved in the ER, NIH score was 1 and for this patient did not receive TPA. Had mildly elevated creatinine on admission at 1.11. CT brain negative for any acute intracranial process on admission. Admitted to the hospital under medicine with neurology consultation and stroke work up. CT angiogram head and neck showed greater than 70% stenosis of the left proximal internal carotid artery and 50%-70% stenosis of right proximal internal carotid artery. Vascular service was consulted and patient underwent right carotid endartectomy. He had postoperative hypotension which is improved. MRI brain showed scattered right CVA foci within the right srivastava radiata and right centrum semiovale involving the posterior right frontal lobe and parietal region. Neurology recommending combination of aspirin 325 mg daily plavix 75 mg daily and high dose lipitor. Recommending skilled nursing anticoagulation to be discussed with vascular surgery on discharge. Patient is post op day 2 right ICA revascularization has been cleared by consultations for discharge. PT recommending home with homecare. Patient is currently alert x 3. He is denying chest pain, no shortness of breath, dizziness or lightheadedness. Neuro deficits are stable. Continues on regular diet. Patients lungs are clear, S1 S2 auscultated abdomen is soft and nontender. No nausea vomiting or diarrhea abdomen is soft and nontender. He is tolerating diet. Kidney function stable. Cleared for discharge. Please see medication reconciliation for a list of current medication. Thank you for allowing us to participate in the care of this patient. The impression and plan of care has been dictated by Tess Cardozo, Nurse Practitioner as directed. Dr. Quinten MD I have performed a history and physical examination and medical decision making of this patient, discussed the same with the dictator, and agree with the dictators assessment and plan as written, documented as a scribe. Based on total visit time, I have performed more than 50% of this visit. Patient Condition at Discharge: Stable Plan - Discharge Summary New Discharge Prescriptions: New Docusate [Colace] 100 mg PO BID PRN #40 cap PRN Reason: Constipation Aspirin 325 mg PO DAILY #30 tab carvediloL [Coreg] 6.25 mg PO BID-W/MEALS #60 tab Atorvastatin [Lipitor] 40 mg PO HS #30 tab Famotidine [Pepcid] 20 mg PO BID #60 tab Clopidogrel [Plavix] 75 mg PO DAILY #30 tab Continue Terazosin HCl 5 mg PO HS Nitroglycerin Sl Tabs [Nitrostat] 0.4 mg SUBLINGUAL Q5M PRN #25 tab PRN Reason: Chest Pain Prednisolone Acetate/Pf [Prednisolone Acet 1% Eye Drop] 1 drop LEFT EYE DAILY Tamsulosin [Flomax] 0.4 mg PO DAILY HYDROcodone/APAP 7.5-325MG [[place] 7.5-325] 1 tab PO Q8H PRN PRN Reason: Pain Furosemide [Lasix] 40 mg PO DAILY Discontinued Metoprolol Tartrate 25 mg PO BID Aspirin 81 mg PO DAILY Baclofen 5 - 10 mg PO BID PRN PRN Reason: Pain Losartan [Cozaar] 50 mg PO DAILY Discharge Medication List Terazosin HCl 5 mg PO HS 06/02/15 [History] Nitroglycerin Sl Tabs [Nitrostat] 0.4 mg SUBLINGUAL Q5M PRN #25 tab 06/04/15 [Rx] Prednisolone Acetate/Pf [Prednisolone Acet 1% Eye Drop] 1 drop LEFT EYE DAILY 03/20/20 [History] Tamsulosin [Flomax] 0.4 mg PO DAILY 03/20/20 [History] Furosemide [Lasix] 40 mg PO DAILY 11/12/22 [History] HYDROcodone/APAP 7.5-325MG [[place] 7.5-325] 1 tab PO Q8H PRN 11/12/22 [History] Aspirin 325 mg PO DAILY #30 tab 11/21/22 [Rx] Atorvastatin [Lipitor] 40 mg PO HS #30 tab 11/21/22 [Rx] Clopidogrel [Plavix] 75 mg PO DAILY #30 tab 11/21/22 [Rx] Docusate [Colace] 100 mg PO BID PRN #40 cap 11/21/22 [Rx] Famotidine [Pepcid] 20 mg PO BID #60 tab 11/21/22 [Rx] carvediloL [Coreg] 6.25 mg PO BID-W/MEALS #60 tab 11/21/22 [Rx] Follow up Appointment(s)/Referral(s): Qiana Ritter MD [STAFF PHYSICIAN] - 1 Week (please call office to book appointment) Armen Adames MD [Primary Care Provider] - 11/29/22 3:45 pm Desiree Potts DO [STAFF PHYSICIAN] - 12/05/22 11:45 am Asif Armenta DO [STAFF PHYSICIAN] - 1 Week (office to call with appointment) Ambulatory/Diagnostic Orders: Basic Metabolic Panel [LAB.AMB] Time Frame: 3 Days, Location: None Selected Patient Instructions/Handouts: Clopidogrel (By mouth), Carotid Artery Stent Placement (DC) Activity/Diet/Wound Care/Special Instructions: Continue on aspirin 325 mg daily, plavix 75 mg daily and lipitor 40 mg daily for primary stroke prevention. medical terminologist antiplatelet medication to be discussed on follow up with vascular surgery. Patient to establish care with a neurologist on discharge. No strenuous activity or heavy lifting greater than 10 pounds. May shower but no tub bathing or soaking. Watch incision site for infection including redness, drainage, or temperature greater than 100.4. If you notice he symptoms please call office Discharge Disposition: HOME WITH HOME HEALTH SERVICES
== END 2022-11-21 15:09 | disposition home health service (06) | DRG 35 ==
LOC: EC 16:25 → 3SCARD 18:01 → 2SICU 11-19 14:14 → 3SCARD 11-20 20:42
PROVIDERS: ADMIT Hospitalist; ATTEND Hospitalist
PROC: 3E043XZ Introduction of Vasopressor into Central Vein, Percutaneous Approach (ICD-10-PCS; 2022-11-19)
PROC: 06HY33Z Insertion of Infusion Device into Lower Vein, Percutaneous Approach (ICD-10-PCS; principal; 2022-11-19 12:30)
PROC: 037K3DZ Dilation of Right Internal Carotid Artery with Intraluminal Device, Percutaneous Approach (ICD-10-PCS; principal; 2022-11-19 12:30)
DX: I63.233 Cerebral infarction due to unspecified occlusion or stenosis of bilateral carotid arteries (principal); G81.94 Hemiplegia, unspecified affecting left nondominant side; I50.22 Chronic systolic (congestive) heart failure; R29.701 NIHSS score 1; Z87.891 Personal history of nicotine dependence; Z95.5 Presence of coronary angioplasty implant and graft; Z86.73 Personal history of transient ischemic attack (TIA), and cerebral infarction without residual deficits; Z82.49 Family history of ischemic heart disease and other diseases of the circulatory system; Z79.899 Other long term (current) drug therapy; Z79.82 Long term (current) use of aspirin; R33.8 Other retention of urine; R29.810 Facial weakness; N40.1 Benign prostatic hyperplasia with lower urinary tract symptoms; E07.9 Disorder of thyroid, unspecified; E78.5 Hyperlipidemia, unspecified; I11.0 Hypertensive heart disease with heart failure; I25.10 Atherosclerotic heart disease of native coronary artery without angina pectoris; I25.2 Old myocardial infarction; I25.5 Ischemic cardiomyopathy; I44.7 Left bundle-branch block, unspecified; I95.9 Hypotension, unspecified; M51.36 Other intervertebral disc degeneration, lumbar region; Z79.02 Long term (current) use of antithrombotics/antiplatelets; K21.9 Gastro-esophageal reflux disease without esophagitis; K57.30 Diverticulosis of large intestine without perforation or abscess without bleeding; Z96.652 Presence of left artificial knee joint
CPT/HCPCS: 36415; 37215; 70450; 70496; 70498; 70551; 71046; 80048; 80053; 80061; 82550; 83036; 84132; 84439; 84443; 84484; 85025; 85610; 85730; 86850; 86900; 86901; 93005; 93306; 93880; 94760; 99291

== ENCOUNTER 2022-12-25 10:32 | Emergency (ER) | payer MEDICARE, BC ==
--- NOTE | 2022-12-25 12:50 | ED ---
General Adult HPI - General Chief complaint: Skin/Abscess/Foreign Body Stated complaint: lump on neck Time Seen by Provider: 12/25/22 12:12 Source: patient, RN notes reviewed, old records reviewed Mode of arrival: ambulatory Limitations: no limitations - History of Present Illness Initial comments: 82-year-old male presents for evaluation of pain and swelling on the back of his neck, right side. Patient denies any drainage. States that he has pain in that area. He states it is tender to the touch. He denies injury. Denies any other rash. Denies chest pain or dyspnea. - Related Data Home Medications Medication Instructions Recorded Confirmed Terazosin HCl 5 mg PO HS 06/02/15 11/12/22 Prednisolone Acetate/Pf 1 drop LEFT EYE DAILY 03/20/20 11/12/22 [Prednisolone Acet 1% Eye Drop] Tamsulosin [Flomax] 0.4 mg PO DAILY 03/20/20 11/12/22 Furosemide [Lasix] 40 mg PO DAILY 11/12/22 11/12/22 HYDROcodone/APAP 7.5-325MG [[place] 1 tab PO Q8H PRN 11/12/22 11/12/22 7.5-325] Previous Rx's Medication Instructions Recorded Nitroglycerin Sl Tabs [Nitrostat] 0.4 mg SUBLINGUAL Q5M PRN #25 tab 06/04/15 Aspirin 325 mg PO DAILY #30 tab 11/21/22 Atorvastatin [Lipitor] 40 mg PO HS #30 tab 11/21/22 Clopidogrel [Plavix] 75 mg PO DAILY #30 tab 11/21/22 Docusate [Colace] 100 mg PO BID PRN #40 cap 11/21/22 Famotidine [Pepcid] 20 mg PO BID #60 tab 11/21/22 carvediloL [Coreg] 6.25 mg PO BID-W/MEALS #60 tab 11/21/22 Cephalexin [Keflex] 500 mg PO Q6HR 10 Days #28 cap 12/25/22 Allergies Allergy/AdvReac Type Severity Reaction Status Date / Time No Known Allergies Allergy Verified 12/25/22 11:37 Review of Systems ROS Statement: Those systems with pertinent positive or pertinent negative responses have been documented in the HPI. ROS Other: All systems not noted in ROS Statement are negative. Past Medical History Past Medical History: Coronary Artery Disease (CAD), Heart Failure, GERD/Reflux, Hyperlipidemia, Hypertension, Myocardial Infarction (SD), Musculoskeletal Disorder, Osteoarthritis (OA), Prostate Disorder, Thyroid Disorder Additional Past Medical History / Comment(s): Lumbar disc disease, HERNIATED DISC IN BACK. Diverticular disease with diverticulosis, BPH, SD X2, unknown dates. Last Myocardial Infarction Date:: UNK History of Any Multi-Drug Resistant Organisms: None Reported Past Surgical History: Adenoidectomy, Heart Catheterization With Stent, Joint Replacement, Tonsillectomy Additional Past Surgical History / Comment(s): LEFT KNEE REPLACMENT. Colonoscopy with polypectomy, epidural steroid injections. carotid stents Past Anesthesia/Blood Transfusion Reactions: No Reported Reaction Date of Last Stent Placement:: UNK Past Psychological History: No Psychological Hx Reported Smoking Status: Former smoker Past Alcohol Use History: Rare Past Drug Use History: None Reported - Past Family History Sister(s) Family Medical History: Cancer Additional Family Medical History / Comment(s): Pancreatic cancer. Father History Unknown: Yes Family Medical History: Cancer Mother History Unknown: Yes Family Medical History: Congestive Heart Failure (CHF) Additional Family Medical History / Comment(s): AT AGE 94. General Exam Limitations: no limitations General appearance: alert, in no apparent distress Head exam: Present: atraumatic, normocephalic Eye exam: Present: normal appearance, PERRL Neck exam: Present: other (Subcentimeter nodule on the posterior right side of his neck. There is tenderness to palpation. There is no induration, no erythema, no warmth) Respiratory exam: Present: normal lung sounds bilaterally. Absent: respiratory distress, wheezes Cardiovascular Exam: Present: regular rate, normal rhythm GI/Abdominal exam: Present: soft. Absent: distended, tenderness Extremities exam: Present: normal inspection, normal capillary refill Neurological exam: Present: alert, oriented X3, CN II-XII intact. Absent: motor sensory deficit Psychiatric exam: Present: normal affect, normal mood Skin exam: Present: warm, dry, intact. Absent: rash Course Vital Signs 12/25/22 12/25/22 11:33 12:54 Temperature 98.6 F 98.9 F Pulse Rate 84 87 Respiratory 22 16 Rate Blood Pressure 157/83 154/81 O2 Sat by Pulse 96 97 Oximetry Medical Decision Making - Medical Decision Making Was pt. sent in by a medical professional or institution ([facility], PHLEBOTOMY SERVICES REPRESENTATIVE, urgent care, hospital, or jail...) When possible be specific @ -No Did you speak to anyone other than the patient for history (EMS, parent, family, police, friend...)? What history was obtained from this source @ -No Did you review nursing and triage notes (agree or disagree)? Why? @ -I reviewed and agree with nursing and triage notes Were old charts reviewed (outside hosp., previous admission, EMS record, old EKG, old radiological studies, urgent care reports/EKG's, jail records)? Report findings @ -No old charts were reviewed Differential Diagnosis (chest pain, altered mental status, abdominal pain women, abdominal pain men, vaginal bleeding, weakness, fever, dyspnea, syncope, headache, dizziness, GI bleed, back pain, seizure, CVA, palpatations, mental health, musculoskeletal)? @ -[Folliculitis, lymphadenopathy, cyst EKG interpreted by me (3pts min.). @ -As above X-rays interpreted by me (1pt min.). @ -None done CT interpreted by me (1pt min.). @ -None done U/S interpreted by me (1pt. min.). @ -None done What testing was considered but not performed or refused? (CT, X-rays, U/S, labs)? Why? @ -None What meds were considered but not given or refused? Why? @ -None Did you discuss the management of the patient with other professionals (professionals i.e. [employer], PHLEBOTOMY SERVICES REPRESENTATIVE, lab, RT, psych nurse, child welfare social worker, specimen boss, teacher, juvenile detention officer, pillowcase cutter)? Give summary @ -[Dr. Adames will ensure close outpatient follow-up. Was smoking cessation discussed for >3mins.? @ -No Was critical care preformed (if so, how long)? @ -No Were there social determinants of health that impacted care today? How? (Homelessness, low income, unemployed, alcoholism, drug addiction, transportation, low edu. Level, literacy, decrease access to med. care, intermediate, rehab)? @ -No Was there de-escalation of care discussed even if they declined (Discuss DNR or withdrawal of care, Hospice)? DNR status @ -No What co-morbidities impacted this encounter? (DM, HTN, Smoking, COPD, CAD, Cancer, CVA, ARF, Chemo, Hep., AIDS, mental health diagnosis, sleep apnea, morbid obesity)? @ -None Was patient admitted / discharged? Hospital course, mention meds given and route, prescriptions, significant lab abnormalities, going to OR and other pertinent info. @ -[82-year-old male with pain and swelling of the back of his neck. There is a subcentimeter nodule either related to lymph node or cystic structure. It is tender to the touch but is not erythematous, not draining. I do feel this is appropriate for outpatient follow-up. Undiagnosed new problem with uncertain prognosis? @ -No Drug Therapy requiring intensive monitoring for toxicity (Heparin, Nitro, Insulin, Cardizem)? @ -No Were any procedures done? @ -No Diagnosis/symptom? @ -[Cystic structure posterior neck Acute, or Chronic, or Acute on Chronic? @ -[Acute Uncomplicated (without systemic symptoms) or Complicated (systemic symptoms)? @ -default Side effects of treatment? @ -No Exacerbation, Progression, or Severe Exacerbation? @ -No Poses a threat to life or bodily function? How? (Chest pain, [place], SD, pneumonia, PE, COPD, DKA, ARF, appy, cholecystitis, CVA, Diverticulitis, Homicidal, Suicidal, threat to staff... and all critical care pts) @ -[Low-risk Disposition Clinical Impression: Folliculitis Disposition: HOME SELF-CARE Condition: Good Instructions (If sedation given, give patient instructions): Folliculitis (ED), Cyst (ED) Additional Instructions: Please apply warm compresses, please evaluate the nodule daily. Please follow up closely with her primary care physician. Return with worsening symptoms, pain, or fever. Prescriptions: Cephalexin [Keflex] 500 mg PO Q6HR 10 Days #28 cap Is patient prescribed a controlled substance at d/c from ED?: No Referrals: Armen Adames MD [Primary Care Provider] - 1-2 days Time of Disposition: 12:49
[2022-12-25 12:57] VITALS: BP 154/81; PULSE 87; RESP 16; TEMP 98.9
== END 2022-12-25 13:00 | disposition home or self-care (01) ==
LOC: EC 10:32
DX: L73.9 Follicular disorder, unspecified (principal); I11.0 Hypertensive heart disease with heart failure; E78.5 Hyperlipidemia, unspecified; I25.10 Atherosclerotic heart disease of native coronary artery without angina pectoris; I25.2 Old myocardial infarction; I50.9 Heart failure, unspecified; Z79.899 Other long term (current) drug therapy; Z87.891 Personal history of nicotine dependence
CPT/HCPCS: 99283

== ENCOUNTER 2023-01-13 17:16 | Emergency (ER) | payer MEDICARE, BC ==
[2023-01-13] MEDS ORDERED: ACETAMINOPHEN TAB 500 MG TAB PO STA (17:54)
--- NOTE | 2023-01-13 18:03 | ED ---
General Adult HPI - General Chief complaint: Fever Stated complaint: Fever Time Seen by Provider: 01/13/23 17:38 Source: patient, family, RN notes reviewed Mode of arrival: wheelchair Limitations: no limitations - History of Present Illness Initial comments: Patient is a pleasant 82-year-old male presenting to the emergency Department with with concerns for fever. Onset was yesterday. Patient does have chills. Patient has myalgias. Fatigue. No cough. No dyspnea. No abdominal or back pain. No headache. No urinary symptoms. - Related Data Home Medications Medication Instructions Recorded Confirmed Terazosin HCl 5 mg PO HS 06/02/15 11/12/22 Prednisolone Acetate/Pf 1 drop LEFT EYE DAILY 03/20/20 11/12/22 [Prednisolone Acet 1% Eye Drop] Tamsulosin [Flomax] 0.4 mg PO DAILY 03/20/20 11/12/22 Furosemide [Lasix] 40 mg PO DAILY 11/12/22 11/12/22 HYDROcodone/APAP 7.5-325MG [[place] 1 tab PO Q8H PRN 11/12/22 11/12/22 7.5-325] Previous Rx's Medication Instructions Recorded Nitroglycerin Sl Tabs [Nitrostat] 0.4 mg SUBLINGUAL Q5M PRN #25 tab 06/04/15 Aspirin 325 mg PO DAILY #30 tab 11/21/22 Atorvastatin [Lipitor] 40 mg PO HS #30 tab 11/21/22 Clopidogrel [Plavix] 75 mg PO DAILY #30 tab 11/21/22 Docusate [Colace] 100 mg PO BID PRN #40 cap 11/21/22 Famotidine [Pepcid] 20 mg PO BID #60 tab 11/21/22 carvediloL [Coreg] 6.25 mg PO BID-W/MEALS #60 tab 11/21/22 Cephalexin [Keflex] 500 mg PO Q6HR 10 Days #28 cap 12/25/22 Allergies Allergy/AdvReac Type Severity Reaction Status Date / Time No Known Allergies Allergy Verified 01/13/23 17:36 Review of Systems ROS Statement: Those systems with pertinent positive or pertinent negative responses have been documented in the HPI. ROS Other: All systems not noted in ROS Statement are negative. Constitutional: Reports: fever, chills Eyes: Denies: eye pain ENT: Denies: ear pain Respiratory: Denies: cough, dyspnea Cardiovascular: Denies: chest pain Endocrine: Reports: fatigue Gastrointestinal: Denies: abdominal pain Genitourinary: Denies: urgency Musculoskeletal: Denies: back pain Skin: Reports: as per HPI Neurological: Denies: weakness Past Medical History Past Medical History: Coronary Artery Disease (CAD), Heart Failure, GERD/Reflux, Hyperlipidemia, Hypertension, Myocardial Infarction ([place]), Musculoskeletal Disorder, Osteoarthritis (OA), Prostate Disorder, Thyroid Disorder Additional Past Medical History / Comment(s): Lumbar disc disease, HERNIATED DISC IN BACK. Diverticular disease with diverticulosis, BPH, [place] X2, unknown dates. Last Myocardial Infarction Date:: UNK History of Any Multi-Drug Resistant Organisms: None Reported Past Surgical History: Adenoidectomy, Heart Catheterization With Stent, Joint Replacement, Tonsillectomy Additional Past Surgical History / Comment(s): LEFT KNEE REPLACMENT. Colonoscopy with polypectomy, epidural steroid injections. carotid stents-23 Past Anesthesia/Blood Transfusion Reactions: No Reported Reaction Date of Last Stent Placement:: UNK Past Psychological History: No Psychological Hx Reported Smoking Status: Former smoker Past Alcohol Use History: Rare Past Drug Use History: None Reported - Past Family History Sister(s) Family Medical History: Cancer Additional Family Medical History / Comment(s): Pancreatic cancer. Father History Unknown: Yes Family Medical History: Cancer Mother History Unknown: Yes Family Medical History: Congestive Heart Failure (CHF) Additional Family Medical History / Comment(s): AT AGE 94. General Exam Limitations: no limitations General appearance: alert, in no apparent distress Head exam: Present: normocephalic Eye exam: Present: normal appearance ENT exam: Present: normal oropharynx Neck exam: Present: normal inspection. Absent: meningismus Respiratory exam: Present: normal lung sounds bilaterally Cardiovascular Exam: Present: regular rate, normal rhythm GI/Abdominal exam: Present: soft. Absent: distended, tenderness, guarding, rebound Extremities exam: Present: normal inspection, full ROM. Absent: tenderness, calf tenderness Back exam: Present: normal inspection Neurological exam: Present: alert Psychiatric exam: Present: normal affect, normal mood Skin exam: Present: other Course Vital Signs 01/13/23 01/13/23 01/13/23 17:29 18:25 18:30 Temperature 102.8 F H Pulse Rate 83 80 Respiratory 18 20 20 Rate Blood Pressure 150/75 138/82 O2 Sat by Pulse 94 L 98 Oximetry 01/13/23 19:33 Temperature 98.6 F Pulse Rate 76 Respiratory 18 Rate Blood Pressure 94/64 O2 Sat by Pulse 93 L Oximetry Medical Decision Making - Medical Decision Making Was pt. sent in by a medical professional or institution (, PA, PHERESIS SPECIALIST, urgent care, hospital, or [facility]...) When possible be specific @ -No Did you speak to anyone other than the patient for history (EMS, parent, family, police, friend...)? What history was obtained from this source @ - is present and helps right history including onset Did you review nursing and triage notes (agree or disagree)? Why? @ -I reviewed and agree with nursing and triage notes Were old charts reviewed (outside hosp., previous admission, EMS record, old EKG, old radiological studies, urgent care reports/EKG's, [facility] records)? Report findings @ -Previous chest x-ray reviewed Differential Diagnosis (chest pain, altered mental status, abdominal pain women, abdominal pain men, vaginal bleeding, weakness, fever, dyspnea, syncope, headache, dizziness, GI bleed, back pain, seizure, CVA, palpatations, mental health, musculoskeletal)? @ -Differential Fever: Pneumonia, viral URI, endocarditis, myocarditis, pericarditis, otitis, sinusitis, peritonsillar Abscess, retropharyngeal Abscess, epiglottitis, peritonitis, appendicitis, Angie cystitis, diverticulitis, hepatitis, colitis, UTI, PID, TOA, pyelonephritis, prostatitis, epididymitis, meningitis, encephalitis, pulmonary embolism, CVA, thyroid storm, pancreatitis, adrenal crisis, cavernous sinus thrombosis, this is not meant to be an all-inclusive list. EKG interpreted by me (3pts min.). @ -As above X-rays interpreted by me (1pt min.). @ -Chest x-ray shows no acute process CT interpreted by me (1pt min.). @ -None done U/S interpreted by me (1pt. min.). @ -None done What testing was considered but not performed or refused? (CT, X-rays, U/S, labs)? Why? @ -Complete metabolic panel ordered however lab and down and unclear initially resulted What meds were considered but not given or refused? Why? @ -None Did you discuss the management of the patient with other professionals (professionals i.e. Dr., PA, PHERESIS SPECIALIST, lab, RT, psych nurse, vp digital marketing social media and crm, wire rigger, teacher, chief business officer, immigration case worker)? Give summary @ -No Was smoking cessation discussed for >3mins.? @ -No Was critical care preformed (if so, how long)? @ -No Were there social determinants of health that impacted care today? How? (Homelessness, low income, unemployed, alcoholism, drug addiction, transportation, low edu. Level, literacy, decrease access to med. care, retirement, rehab)? @ -No Was there de-escalation of care discussed even if they declined (Discuss DNR or withdrawal of care, Hospice)? DNR status @ -No What co-morbidities impacted this encounter? (DM, HTN, Smoking, COPD, CAD, Cancer, CVA, ARF, Chemo, Hep., AIDS, mental health diagnosis, sleep apnea, morbid obesity)? @ -None Was patient admitted / discharged? Hospital course, mention meds given and route, prescriptions, significant lab abnormalities, going to OR and other pertinent info. @ -Patient reevaluated and resting comfortably in bed. Patient feeling much better. Patient would like to be discharged. Patient and family are updated regarding delay in lab and they do not want to wait for this. They are agreeab le to follow-up with primary care physician tomorrow regarding labs as well as follow-up. It is felt unlikely to be clinically significant however patient and family are made aware that there still could be abnormality. Follow-up is essential. Undiagnosed new problem with uncertain prognosis? @ -Etiology of fever is unclear. Patient and family are made aware of this. Likely viral syndrome however not definitive. Drug Therapy requiring intensive monitoring for toxicity (Heparin, Nitro, Insulin, Cardizem)? @ -No Were any procedures done? @ -No Diagnosis/symptom? @ -Fever Acute, or Chronic, or Acute on Chronic? @ -Acute Uncomplicated (without systemic symptoms) or Complicated (systemic symptoms)? @ -default Side effects of treatment? @ -No Exacerbation, Progression, or Severe Exacerbation? @ -No Poses a threat to life or bodily function? How? (Chest pain, [place], [place], pneumonia, PE, COPD, DKA, ARF, appy, cholecystitis, CVA, Diverticulitis, Homicidal, Suicidal, threat to staff... and all critical care pts) @ -No - Lab Data Result diagrams: 01/13/23 18:24 Lab Results 01/13/23 01/13/23 01/13/23 Range/Units 18:24 18:24 18:24 WBC 5.9 (3.8-10.6) k/uL RBC 4.82 (4.30-5.90) m/uL Hgb 14.0 (13.0-17.5) gm/dL Hct 41.6 (39.0-53.0) % MCV 86.3 (80.0-100.0) fL MCH 28.9 (25.0-35.0) pg MCHC 33.5 (31.0-37.0) g/dL RDW 13.6 (11.5-15.5) % Plt Count 137 L (150-450) k/uL MPV 8.6 Neutrophils % 71 % Lymphocytes % 21 % Monocytes % 6 % Eosinophils % 0 % Basophils % 0 % Neutrophils # 4.2 (1.3-7.7) k/uL Lymphocytes # 1.3 (1.0-4.8) k/uL Monocytes # 0.4 (0-1.0) k/uL Eosinophils # 0.0 (0-0.7) k/uL Basophils # 0.0 (0-0.2) k/uL PT 10.2 (9.0-12.0) sec INR 1.0 (<1.2) APTT 25.6 (22.0-30.0) sec Plasma Lactic Acid Hunter (0.7-2.0) mmol/L Urine Color Yellow Urine Appearance Clear (Clear) Urine pH 6.0 (5.0-8.0) Ur Specific [place] 1.020 (1.001-1.035) Urine Protein Trace H (Negative) Urine Glucose (UA) Negative (Negative) Urine Ketones Negative (Negative) Urine Blood Negative (Negative) Urine Nitrite Negative (Negative) Urine Bilirubin Negative (Negative) Urine Urobilinogen <2.0 (<2.0) mg/dL Ur Leukocyte Esterase Negative (Negative) Influenza Type A (PCR) (Not Detectd) Influenza Type B (PCR) (Not Detectd) RSV (PCR) (Not Detectd) SARS-CoV-2 (PCR) (Not Detectd) 01/13/23 01/13/23 Range/Units 18:24 18:24 WBC (3.8-10.6) k/uL RBC (4.30-5.90) m/uL Hgb (13.0-17.5) gm/dL Hct (39.0-53.0) % MCV (80.0-100.0) fL MCH (25.0-35.0) pg MCHC (31.0-37.0) g/dL RDW (11.5-15.5) % Plt Count (150-450) k/uL MPV Neutrophils % % Lymphocytes % % Monocytes % % Eosinophils % % Basophils % % Neutrophils # (1.3-7.7) k/uL Lymphocytes # (1.0-4.8) k/uL Monocytes # (0-1.0) k/uL Eosinophils # (0-0.7) k/uL Basophils # (0-0.2) k/uL PT (9.0-12.0) sec INR (<1.2) APTT (22.0-30.0) sec Plasma Lactic Acid Hunter 1.2 (0.7-2.0) mmol/L Urine Color Urine Appearance (Clear) Urine pH (5.0-8.0) Ur Specific [place] (1.001-1.035) Urine Protein (Negative) Urine Glucose (UA) (Negative) Urine Ketones (Negative) Urine Blood (Negative) Urine Nitrite (Negative) Urine Bilirubin (Negative) Urine Urobilinogen (<2.0) mg/dL Ur Leukocyte Esterase (Negative) Influenza Type A (PCR) Not Detected (Not Detectd) Influenza Type B (PCR) Not Detected (Not Detectd) RSV (PCR) Not Detected (Not Detectd) SARS-CoV-2 (PCR) Not Detected (Not Detectd) Disposition Clinical Impression: Fever Disposition: HOME SELF-CARE Condition: Stable Additional Instructions: Please follow-up to in the morning. Please inform your doctor that lab was down and have your doctor checked results as soon as possible. Return for increased fever, weakness, cough or shortness of breath, abdominal pain, worsening or change in symptoms, headache or neck pain, or any other concerns. [id number] Tylenol or Aleve if needed. Is patient prescribed a controlled substance at d/c from ED?: No Referrals: Armen Adames MD [Primary Care Provider] - 1-2 days Time of Disposition: 20:56
[2023-01-13 19:06] LABS: Appearance,Urine Clear (Clear); Basophils % (A) 0 %; Bilirubin,Urine Negative (Negative); Blood,Urine Negative (Negative); Color,Urine Yellow; Eosinophils % (A) 0 %; Glucose,Urine (UA) Negative (Negative); HCT 41.6 % (39.0-53.0); Ketones,Urine Negative (Negative); Leukocyte Esterase,Urine Negative (Negative); Lymphocytes # (A) 1.3 k/uL (1.0-4.8); Lymphocytes % (A) 21 %; MCH 28.9 pg (25.0-35.0); MCHC 33.5 g/dL (31.0-37.0); MCV 86.3 fL (80.0-100.0); Mean Platelet Volume 8.6; Monocytes # (A) 0.4 k/uL (0-1.0); Monocytes % (A) 6 %; Neutrophils # (A) 4.2 k/uL (1.3-7.7); Neutrophils % (A) 71 %; Nitrite,Urine Negative (Negative); Platelet Count 137 k/uL (150-450); Protein,Urine Trace (Negative); RBC 4.82 m/uL (4.30-5.90); RDW 13.6 % (11.5-15.5); Urobilinogen,Urine <2.0 mg/dL (<2.0); WBC 5.9 k/uL (3.8-10.6)
--- NOTE | 2023-01-13 19:07 | XR ---
EXAMINATION TYPE: XR chest 2V DATE OF EXAM: 01/13/2023 6:38 PM COMPARISON: Chest radiographs from 11/12/2022. TECHNIQUE: XR chest 2V Frontal and lateral views of the chest. CLINICAL INDICATION:Male, 82 years old with history of Fever; FINDINGS: Lungs/Pleura: There is no evidence of pleural effusion, focal consolidation, or pneumothorax. Streak y flat atelectasis in the left lung base. Pulmonary vascularity: Unremarkable. Heart/mediastinum: Cardiomediastinal silhouette is unremarkable. Atherosclerotic calcifications are seen in the aorta. Musculoskeletal: No acute osseous pathology. IMPRESSION: Chronic changes without acute pulmonary process. No significant change from prior.
[2023-01-13 19:18] LABS: Partial Thromboplastin Time 25.6 sec (22.0-30.0); Prothrombin Time 10.2 sec (9.0-12.0)
[2023-01-13 19:40] VITALS: RESP 18
[2023-01-13 19:57] LABS: ALT 21 U/L (4-49); African American GFR (CKD) 71 (>60 ml/min/1.73 sqM); Albumin 4.1 g/dL (3.5-5.0); Glucose 109 mg/dL (74-99); Non-African American GFR(CKD) 61 (>60 ml/min/1.73 sqM); Total Bilirubin 0.6 mg/dL (0.2-1.3); Total Protein 7.3 g/dL (6.3-8.2)
[2023-01-13 21:01] LABS: AST 23 U/L (17-59); Alkaline Phosphatase 83 U/L (38-126); Anion Gap 11 mmol/L; Blood Urea Nitrogen 29 mg/dL (9-20); Calcium 8.9 mg/dL (8.4-10.2); Carbon Dioxide 24 mmol/L (22-30); Chloride 97 mmol/L (98-107); Potassium 4.5 mmol/L (3.5-5.1); Sodium 132 mmol/L (137-145)
[2023-01-13 21:22] VITALS: BP 112/77; PULSE 66; TEMP 99.4
== END 2023-01-13 21:22 | disposition home or self-care (01) ==
LOC: EC 17:16
DX: R50.9 Fever, unspecified (principal); I11.0 Hypertensive heart disease with heart failure; I50.9 Heart failure, unspecified; I25.10 Atherosclerotic heart disease of native coronary artery without angina pectoris; I25.2 Old myocardial infarction; M19.90 Unspecified osteoarthritis, unspecified site; Z87.891 Personal history of nicotine dependence; Z79.899 Other long term (current) drug therapy; Z20.822 Contact with and (suspected) exposure to COVID-19
CPT/HCPCS: 36415; 71046; 80053; 81003; 83605; 85025; 85610; 85730; 87040; 87636; 99284

== ENCOUNTER 2023-02-28 06:09 | Day surgery (SDC) | payer MEDICARE, BC ==
[~2023-02-28 06:09] MED LIST changes: -ACETAMINOPHEN TAB 500 MG TAB PO PRN; +ALPRAZolam 0.25 MG TAB PO PRN; +ALPRAZolam 0.5 MG TAB PO PRN; +ASPIRIN 325 MG TAB PO STA; +ATORVASTATIN 80 MG TAB PO STA; -GABAPENTIN 300 MG CAP PO PRN; +HEPARIN SODIUM,PORCINE (1 ML) 2,500 UNIT in SODIUM CHLORIDE 0.9% 250 ML IRRIGATION PRN; +HEPARIN SODIUM,PORCINE 10,000 UNIT in SODIUM CHLORIDE 0.9% 1,000 ML IRRIGATION PRN; -HYDROmorphone 0.5 MG/0.5 ML SYRINGE IVP PRN; -MELOXICAM 7.5 MG TAB PO PRN; -MIDAZOLAM 2 MG/2 ML VIAL IV PRN; +NITROGLYCERIN SL TABS 0.4 MG TAB SUBLINGUAL PRN; -ONDANSETRON 4 MG/2 ML VIAL IVP PRN; +SODIUM CHLORIDE 0.9% 1,000 ML in EMPTY BAG 1 BAG IV SCH; -TRANEXAMIC ACID 1,000 MG in SODIUM CHLORIDE 0.9% 100 ML IVPB PRN
[2023-02-28] MEDS ORDERED: CLOPIDOGREL 75 MG TAB ONE (06:52)
[2023-02-28 07:04] VITALS: RESP 18; TEMP 97.7
[2023-02-28] MEDS ORDERED: HEPARIN SODIUM 1,000 UN/ML (10ML VL) ONE (07:18)
[2023-02-28] MEDS ORDERED: VERAPAMIL 2.5 MG/ML 2 ML AMP ONE (07:18)
[2023-02-28] MEDS ORDERED: MIDAZOLAM 2 MG/2 ML VIAL IVP ONE (07:45)
[2023-02-28] MEDS ORDERED: LIDOCAINE 1% INJ 10MG/ML (5 ML VIAL-PF) SQ ONE (07:50)
[2023-02-28] MEDS ORDERED: VERAPAMIL SYRINGE (5 MG/10 ML) INTRAARTER ONE (07:52)
[2023-02-28] MEDS ORDERED: HEPARIN SODIUM 1,000 UN/ML (10ML VL) IVP ONE (07:53)
[2023-02-28] MEDS ORDERED: NITROGLYCERIN 1000MCG/10ML SYRINGE INTRAARTER ONE (07:58)
[2023-02-28] MEDS ORDERED: IOPAMIDOL-370 100ML BTL INJ ONE (08:20)
[2023-02-28] MEDS ORDERED: ISOSORBIDE MONONITRATE ER 30 MG TAB.ER.24H PO STA (08:28)
[2023-02-28] MEDS ORDERED: NITROGLYCERIN SL TABS 0.4 MG TAB SUBLINGUAL PRN (08:29)
[2023-02-28] MEDS ORDERED: HYDROcodone/APAP 7.5-325MG 1 EACH TAB PO PRN (08:29)
[2023-02-28] MEDS ORDERED: RX INFO: IV CONTRAST WAS GIVEN 1 EACH MISC MISCELLANE PRN (08:39)
[2023-02-28] MEDS ORDERED: LOSARTAN 50 MG TAB PO STA (08:48)
[2023-02-28] MEDS ORDERED: FUROSEMIDE 40 MG TAB PO SCH (09:00)
[2023-02-28] MEDS ORDERED: TAMSULOSIN 0.4 MG CAP.ER.24H PO SCH (09:00)
--- NOTE | 2023-02-28 09:34 | CC ---
CARDIAC CATHETERIZATION REPORT PROCEDURES PERFORMED: Left heart catheterization, coronary angiography. PERFORMED BY: Dr. Brianda Ritter. ANESTHESIA: Moderate conscious sedation time was 25 minutes. The patient was administered Versed. Oxygen saturation, hemodynamics, and EKG were monitored closely. CLINICAL INFORMATION: Mr. Sanchez is an 82-year-old gentleman with history of CAD, multivessel PCI, hypertension, hyperlipidemia, CVA with a right carotid endarterectomy performed recently. He has developed worsening shortness of breath and also LV function has decreased and he has chest tightness with moderate effort. He was therefore advised cardiac cath after due discussion with the patient as well as family members. PROCEDURE NOTE: Under strict aseptic precautions and local anesthesia, a 6-Arabic introducer was placed in the right radial artery using a micropuncture needle technique. A JL4.0 and JR4.0 catheters were used to perform coronary angiography and the same right catheter was used to check LV pressures. There was a lot of spasm in the arterial system. Following the procedure, the sheath was taken out and TR band applied as per protocol with saturation in the fingers of the right hand of about 94%. The patient tolerated the procedure well without complications. CARDIAC CATHETERIZATION FINDINGS: The left ventricular end-diastolic pressure was about 15 to 18 mmHg without any gradient across aortic valve. CORONARY ANGIOGRAPHY FINDINGS: Right coronary artery: Dominant vessel. This was stented in 2006. The stented segment is patent. It is a very dominant vessel. In the proximal portion, before the stent, there is a tortuosity with a 40% narrowing and after the stent, there is another 55% narrowing. The caliber of the vessel improves and it bifurcates into a large PLV and a relatively smaller PDA, both of which have minor irregularities, but there is diffuse disease in the PDA. RCA therefore has a mid 55% lesion. The stent is patent and proximal to the stent, there is a 40% lesion. Left main coronary artery. There is a mild 10% narrowing in the distal left main and bifurcates into LAD and circumflex. Left anterior descending coronary artery: Good-caliber vessel, which had no more than 45% lesion in 2016, now has a very significant lesion. The lesion starts in the proximal portion. As it comes off from the left main, there is 80% narrowing and the lesion extends all the way into the mid LAD and through this diseased area of about 80% to 85%, there is a septal and a good-sized diagonal branch comes off. The LAD therefore is a long lesion that involves the septal and diagonal branch and starts right after the origin and extends to the mid LAD. There is moderate calcification noted. Left posterior circumflex coronary artery: Nondominant vessel that was stented in 2016. The stented segment is widely patent, but the first OM has a 70% narrowing and the groove branch has 80% narrowing. The stented segment, which is a nondominant circumflex marginal, is widely patent with good flow. Left ventriculogram was not performed. FINAL IMPRESSION: This patient has a right-dominant system, elevated filling pressures, no gradient. Right coronary has a 55% mid lesion distal to the stent, 40% proximal lesion before the stent. The stent itself is patent with good flow. The left main has mild narrowing of 10% to 15%. The LAD has a long 80% lesion extending from the ostium all the way to the midportion that also involves the major diagonal branch of 2.25 caliber and a septal branch. The distal LAD is of good caliber and graftable. The circumflex is nondominant. Stented segment in the midportion of the obtuse marginal is patent. High first obtuse marginal has a 70% narrowing and a groove branch has 80% narrowing, but both of these are small branches. Filling pressures are slightly elevated. LV-gram was not performed. RECOMMENDATIONS: I am recommending evaluation for his cardiac surgery with a bypass graft to LAD, diagonal, distal RCA as well as circumflex marginal. I have requested Dr. Romero to see the patient today and I have spoken to him as well. If they feel surgery is high risk, then I will bring him back and from the right femoral approach, perform PCI of the long lesion in the LAD and perform FFR of RCA. I discussed my thoughts in detail with the patient and family. I expect he will be discharged later on today after seen by Dr. Romero. MMODL / IJN: [id number] /
[2023-02-28 14:00] VITALS: BP 156/90; PULSE 86
[2023-02-28] MEDS ORDERED: carvediloL 6.25 MG TAB PO SCH (17:30)
--- NOTE | 2023-02-28 17:44 | CA ---
Transthoracic Echo Report Name: Ba Sanchez Age: 82 Gender: M : 1940 Exam Date: 02/28/2023 11:21 Exam Location: [facility] Ht (in): 70 Wt (lb): 200 Ordering Physician: Qiana Ritter MD ([id number]) Attending/Referring Phys: Design Eng Dalton Cleary Procedure CPT: Indications: LV FUNCTION AND MITRAL VALVE FX Cardiac Hx: Technical Quality: Fair Contrast 1: Lumason Total Dose (mL): 5 Contrast 2: Total Dose (mL): MEASUREMENTS (Male / Female) Normal Values 2D ECHO LV Diastolic Diameter PLAX 5.3 cm 4.2 - 5.9 / 3.9 - 5.3 cm LV Systolic Diameter PLAX 4.6 cm IVS Diastolic Thickness 1.3 cm 0.6 - 1.0 / 0.6 - 0.9 cm LVPW Diastolic Thickness 1.3 cm 0.6 - 1.0 / 0.6 - 0.9 cm LV Relative Wall Thickness 0.5 RV Internal Dim ED PLAX 3.0 cm LVOT Diameter 2.3 cm Aortic Root Diameter 3.4 cm LA Systolic Diameter LX 2.4 cm 3.0 - 4.0 / 2.7 - 3.8 cm LV Diastolic Volume MOD BP 76.7 cm??? 67 - 155 / 56 - 104 cm??? LV Systolic Volume MOD BP 45.9 cm??? 22 - 58 / 19 - 49 cm??? LV Ejection Fraction MOD BP 40.2 % >= 55 % LV Cardiac Index MOD BP 1025.0 cm???/min???m??? LV Diastolic Volume MOD 4C 85.5 cm??? LV Systolic Volume MOD 4C 52.3 cm??? LV Ejection Fraction MOD 4C 38.8 % LV Cardiac Index MOD 4C 1102.1 cm???/min???m??? LV Diastolic Length 4C 8.0 cm LV Systolic Length 4C 6.5 cm LV Diastolic Volume MOD 2C 66.4 cm??? LV Systolic Volume MOD 2C 38.2 cm??? LV Ejection Fraction MOD 2C 42.4 % LV Cardiac Index MOD 2C 935.5 cm???/min???m??? LV Diastolic Length 2C 7.6 cm LV Systolic Length 2C 7.0 cm LA Volume 56.6 cm??? 18 - 58 / 22 - 52 cm??? LA Volume Index 26.5 cm???/m??? 16 - 28 cm???/m??? DOPPLER AV Peak Velocity 107.4 cm/s AV Peak Gradient 4.6 mmHg LVOT Peak Velocity 64.5 cm/s LVOT Peak Gradient 1.7 mmHg LVOT Velocity Time Integral 15.0 cm LVOT Stroke Volume 62.9 cm??? LVOT Stroke Volume Index 30.1 ml/m??? LVOT Cardiac Index 2089.8 cm???/min???m??? AV Area Cont Eq pk 2.5 cm??? MV Peak Velocity 107.9 cm/s MV Peak Gradient 4.7 mmHg MV Mean Velocity 47.7 cm/s MV Mean Gradient 1.1 mmHg MV Velocity Time Integral 34.6 cm MR Peak Velocity 359.5 cm/s MR Peak Gradient 51.7 mmHg Mitral E Point Velocity 59.4 cm/s Mitral A Point Velocity 110.0 cm/s Mitral E to A Ratio 0.5 MV Deceleration Time 285.4 ms MV E' Velocity 4.7 cm/s Mitral E to MV E' Ratio 12.5 TR Peak Velocity 214.0 cm/s TR Peak Gradient 18.3 mmHg Right Ventricular Systolic Press 23.6 mmHg PV Peak Velocity 77.5 cm/s PV Peak Gradient 2.4 mmHg FINDINGS Left Ventricle Normal LV size.Mild concentric LVH. Left ventricular ejection fraction is estimated at 25-30 %. Right Ventricle Normal right ventricular size. RVSP= 28mmHg. Right Atrium Normal right atrial size. Left Atrium Normal left atrial size. Mitral Valve Structurally normal mitral valve. Trace MR.No mitral stenosis. Aortic Valve Aortic valve not well visualized. Trileaflet aortic valve. No aortic valve stenosis or regurgitation. Tricuspid Valve Structurally normal tricuspid valve. Trace TR. Pulmonic Valve Pulmonic valve not well visualized. No pulmonic regurgitation. Pericardium Normal pericardium. Aorta Normal size aortic root . CONCLUSIONS Severe LV systolic dysfunction with an ejection fraction of 30% Previewed by: Dr. Benoit Garrett MD (Electronically Signed) Final Date: 28 February 2023 17:43
--- NOTE | 2023-02-28 17:59 | P.GSCN ---
History of Present Illness Consult date: 02/28/23 Reason for Consult: Multivessel coronary artery disease Requesting physician: Qiana Ritter History of present illness: This is an 82-year-old gentleman who follows on an outpatient basis with Dr. Armen Adames for his primary care service and with Dr. RIK Ritter for his cardiology care. 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 Recently, the patient has had complaints of shortness of breath and feeling fatigued to the point where he feels exhausted. The patient reports that he is still in physical therapy due to his recent CVA. He denies any recent fever, chills, nausea, vomiting, diarrhea, constipation, headache, chest pain, chest pressure, presyncope or or syncope. The patient underwent a recent transthoracic 2-D echocardiogram which showed a left ventricular ejection fraction of 25-30%, trace mitral valve regurgitation, trace tricuspid valve regurgitation, and normal size aortic root. The patient underwent a transthoracic 2-D ech ocardiogram in October 2022 which showed ejection fraction in the 30% range. Due to the patient's history of coronary artery disease and his recent complaints of shortness of breath and feeling fatigued he was recommended to undergo a cardiac catheterization which was completed today by Dr. IRK Ritter. The cardiac catheterization demonstrated a 10% stenosis to his left main coronary artery, a 55% stenosis to his mid right coronary artery, a 40% stenosis to a circumflex coronary artery, and 80% stenosis to his proximal left anterior descending coronary artery, and an 85% stenosis to his mid left anterior descending coronary artery. Due to the findings on the cardiac catheterization a consult was placed to Dr. Johnson Romero from cardiothoracic surgery for further evaluation and treatment recommendations including myocardial revascularization surgery. Review of Systems A 14 point review of systems was completed and was negative except as mentioned in the HPI. Past Medical History Past Medical History: Coronary Artery Disease (CAD), Heart Failure, CVA/TIA, GERD/Reflux, Hyperlipidemia, Hypertension, Myocardial Infarction (IN), Musculoskeletal Disorder, Osteoarthritis (OA), Prostate Disorder, Thyroid Disorder Additional Past Medical History / Comment(s): Lumbar disc disease, HERNIATED DISC IN BACK. Diverticular disease with diverticulosis, BPH, IN X2, unknown dates. lft leg weakness post cva Last Myocardial Infarction Date:: UNK History of Any Multi-Drug Resistant Organisms: None Reported Past Surgical History: Adenoidectomy, Heart Catheterization With Stent, Joint Replacement, Tonsillectomy Additional Past Surgical History / Comment(s): Chato KNEE REPLACMENT. Colonoscopy with polypectomy, epidural steroid injections. carotid stents- Past Anesthesia/Blood Transfusion Reactions: No Reported Reaction Date of Last Stent Placement:: UNK Smoking Status: Former smoker - Past Family History Sister(s) Family Medical History: Cancer Additional Family Medical History / Comment(s): Pancreatic cancer. Father History Unknown: Yes Family Medical History: Cancer Mother History Unknown: Yes Family Medical History: Congestive Heart Failure (CHF) Additional Family Medical History / Comment(s): AT AGE 94. Medications and Allergies Home Medications Medication Instructions Recorded Confirmed Type Terazosin HCl 5 mg PO HS 06/02/15 02/28/23 History Nitroglycerin Sl Tabs [Nitrostat] 0.4 mg SUBLINGUAL Q5M PRN #25 tab 06/04/15 02/28/23 Rx Tamsulosin [Flomax] 0.4 mg PO DAILY 03/20/20 02/28/23 History Furosemide [Lasix] 40 mg PO DAILY 11/12/22 02/28/23 History HYDROcodone/APAP 7.5-325MG [Anthony 1 tab PO Q8H PRN 11/12/22 02/28/23 History 7.5-325] Aspirin 325 mg PO DAILY #30 tab 11/21/22 02/28/23 Rx Atorvastatin [Lipitor] 40 mg PO HS #30 tab 11/21/22 02/28/23 Rx Clopidogrel [Plavix] 75 mg PO DAILY #30 tab 11/21/22 02/28/23 Rx carvediloL [Coreg] 6.25 mg PO BID-W/MEALS #60 tab 11/21/22 02/28/23 Rx Allergies Allergy/AdvReac Type Severity Reaction Status Date / Time No Known Allergies Allergy Verified 02/28/23 06:48 Surgical - Exam Vital Signs Temp Pulse Resp BP Pulse Ox 97.7 F 92 18 174/90 98 02/28/23 06:53 02/28/23 06:53 02/28/23 06:53 02/28/23 06:53 02/28/23 06:53 - General well developed, well nourished, no distress, no pain, chronically ill, obese - Eyes Erythema to his left eye, chronic PERRL, normal ocular movement, no pale - ENT normal pinna, normal nares, normal mucosa, no hearing loss, no congestion - Neck Neck is supple, no lymphadenopathy. no masses, no bruits, trachea midline, no venous distension - Respiratory Lungs sounds essentially clear throughout, diminished to his bilateral bases. Respirations are symmetrical and nonlabored. No wheezes, rhonchi or crackles. - Cardiovascular Regular rhythm and rate. S1 and S2 present, negative for S3, gallop or murmur. - Abdomen Abdomen is soft, nontender and nondistended. Active bowel sounds present in all 4 abdominal quadrants. No guarding or rigidity. No organomegaly appreciated. - Genitourinary Deferred - Rectum Deferred - Integumentary Skin is warm and dry. No clubbing or cyanosis is present. no rash, no growths, no abnormal pigmentation - Neurologic Residual left sided weakness from previous CVA. normal sensation - Musculoskeletal Moves All 4 extremities, although has some residual left-sided weakness from previous CVA - Psychiatric oriented to time, oriented to person, oriented to place, speech is normal, memory intact Results - Imaging Additional studies: Cardiac catheterization films reviewed by Dr. Johnson Romero Assessment and Plan Assessment: Multivessel coronary artery disease, with history of coronary artery disease with previous stenting to his RCA in 2006 and stenting to his circumflex coronary artery in 2016 Left ventricular ejection fraction estimated at 25-30% Hypertension Hyperlipidemia History of CVA in October 2022 with some residual left-sided weakness History of right internal carotid artery stenosis, status post stenting of his right internal carotid artery History of shingles to his left eye, with some continued to visual disturbances BPH Osteoarthritis Remote history of nicotine dependence quit over 60 years ago Plan: Patient was seen and examined in conjunction with Dr. Johnson Romero at the patient's bedside in the extended stay unit. The patient's chart and diagnostics were reviewed. Dr. Romero discussed treatment options with the patient including myocardial revascularization surgery. Due to the patient's multiple comorbidities Dr. Romero feels like the patient would be a high risk surgical candidate and spoke with Dr. Ritter and is recommending to proceed with PCI. Continue to maximize medical therapy. Medical management and other comorbidities per primary care and cardiology service. Thank you Dr. Ritter for this consult. I have personally seen and examined the patient, performed the documentation and the assessment and plan as written. 30 minutes spent on the visit. Roger DELCIDC Attending addendum: Pt seen and evaluated with SMALL BUSINESS DIRECTOR above. Agree with his assessment and plan. I spent 35 minutes reviewing the data and discussing the plan of care with the team and the patient. Time with Patient: Greater than 30
[2023-02-28] MEDS ORDERED: TERAZOSIN HCL 5 MG PO SCH (21:00)
[2023-02-28] MEDS ORDERED: ATORVASTATIN 40 MG TAB PO SCH (21:00)
[2023-02-28] MEDS ORDERED: LOSARTAN 50 MG TAB PO SCH (21:00)
[2023-03-01] MEDS ORDERED: ASPIRIN 325 MG TAB PO SCH (09:00)
[2023-03-01] MEDS ORDERED: CLOPIDOGREL 75 MG TAB PO SCH (09:00)
== END 2023-02-28 13:52 | disposition home or self-care (01) ==
LOC: CATHCVL 06:09
PROVIDERS: ATTEND Internal Medicine Interventional Cardiology
DX: I25.10 Atherosclerotic heart disease of native coronary artery without angina pectoris (principal); I11.0 Hypertensive heart disease with heart failure; I50.9 Heart failure, unspecified; I25.2 Old myocardial infarction; E78.5 Hyperlipidemia, unspecified; K21.9 Gastro-esophageal reflux disease without esophagitis; M19.90 Unspecified osteoarthritis, unspecified site; N40.0 Benign prostatic hyperplasia without lower urinary tract symptoms; Z79.02 Long term (current) use of antithrombotics/antiplatelets; Z79.82 Long term (current) use of aspirin; Z87.891 Personal history of nicotine dependence; Z95.5 Presence of coronary angioplasty implant and graft; Z79.899 Other long term (current) drug therapy; Z86.73 Personal history of transient ischemic attack (TIA), and cerebral infarction without residual deficits
CPT/HCPCS: 94150; 93458; C8929; C1769; C1894; J2250; J2001; J1644; Q9950; Q9967; J2305; 93306

== ENCOUNTER → 2023-03-18 | Outpatient (CLI) | payer MEDICARE, BC ==
[2023-03-18 16:28] LABS: Blood Urea Nitrogen 17.1 mg/dL (9.0-27.0); Carbon Dioxide 22.1 mmol/L (21.6-31.8); Chloride 103 mmol/L (96-109); Potassium 4.7 mmol/L (3.5-5.5); Sodium 136 mmol/L (135-145)
[2023-03-18 17:04] LABS: HCT 38.2 % (39.6-50.0); HGB 12.2 d/dL (13.0-17.0); MCH 28.4 pg (27.0-32.0); MCHC 31.9 d/dL (32.0-37.0); Mean Platelet Volume 11.5 FL (9.5-12.2); NRBC Per 100 WBC 0 X 10*3/uL (0.00-0.01); Platelet Count 192 X 10*3/uL (140-440); RBC 4.29 X 10*6/uL (4.40-5.60); RDW 15.1 % (11.5-14.5)
== END | disposition home or self-care (01) ==
LOC: LABPAT 10:25
PROVIDERS: ATTEND Internal Medicine Interventional Cardiology
DX: Z01.812 Encounter for preprocedural laboratory examination (principal); I25.5 Ischemic cardiomyopathy
CPT/HCPCS: 36415; 80051; 82565; 84520; 85027

== ENCOUNTER 2023-03-21 07:41 | Inpatient (IN) | payer MEDICARE, BC ==
[~2023-03-21 07:41] MED LIST changes: -SODIUM CHLORIDE 0.9% 1,000 ML in EMPTY BAG 1 BAG IV SCH
[2023-03-21] MEDS ORDERED: IV FLUID CONTINUATION 1,000 ML IV ONE (09:50)
[2023-03-21] MEDS ORDERED: HEPARIN SODIUM 1,000 UN/ML (10ML VL) ONE ×2 (10:08→12:54)
[2023-03-21] MEDS ORDERED: MIDAZOLAM 2 MG/2 ML VIAL IVP ONE (10:10)
[2023-03-21] MEDS ORDERED: LIDOCAINE 1% INJ 10MG/ML (20 ML MDV) SQ ONE (10:23)
[2023-03-21] MEDS ORDERED: HYDROmorphone 0.5 MG/0.5 ML SYRINGE IVP ONE ×4 (10:33→12:26)
[2023-03-21] MEDS ORDERED: HEPARIN SODIUM 1,000 UN/ML (10ML VL) IVP ONE ×2 (10:40→12:07)
[2023-03-21] MEDS ORDERED: NITROGLYCERIN-D5W PMX 50 MG in DEXTROSE/WATER 1 250ML.BAG IV ONE (10:45)
[2023-03-21] MEDS: HEPARIN SODIUM 1,000 UN/ML (10ML VL) IVP ONE ×2 (11:34→12:50)
[2023-03-21] MEDS ORDERED: NITROGLYCERIN SL TABS 0.4 MG TAB SUBLINGUAL ONE ×2 (11:41→11:44)
[2023-03-21] MEDS ORDERED: MORPHINE SULFATE 4 MG/ML SYRINGE ONE ×2 (11:42→12:27)
[2023-03-21] MEDS: MORPHINE SULFATE 4 MG/ML SYRINGE IVP ONE ×2 (11:44→12:57)
[2023-03-21] MEDS: NITROGLYCERIN 1000MCG/10ML SYRINGE INTRACORON ONE ×2 (11:47→12:39)
[2023-03-21] MEDS ORDERED: IOPAMIDOL-370 100ML BTL INJ ONE ×3 (11:48→12:49)
[2023-03-21] MEDS ORDERED: PHENYLEPHRINE-0.9% NACL SYG 1,000 MCG/10 ML SYRINGE IVP ONE (11:52)
[2023-03-21] MEDS ORDERED: MORPHINE SULFATE 4 MG/ML SYRINGE IVP ONE ×2 (12:12→12:29)
[2023-03-21] MEDS ORDERED: METOPROLOL TARTRATE 5 MG/5 ML VIAL IVP ONE (12:34)
[2023-03-21] MEDS: METOPROLOL TARTRATE 5 MG/5 ML VIAL IVP ONE ×2 (12:35→12:45)
[2023-03-21] MEDS ORDERED: FUROSEMIDE 10 MG/ML 4 ML VIAL ONE (12:43)
[2023-03-21] MEDS ORDERED: TICAGRELOR 90 MG TAB ONE (12:43)
[2023-03-21] MEDS ORDERED: TICAGRELOR 90 MG TAB PO ONE (12:48)
[2023-03-21] MEDS ORDERED: FUROSEMIDE 10 MG/ML 4 ML VIAL IV ONE (12:49)
[2023-03-21] MEDS ORDERED: MAG HYDROX/AL HYDROX/SIMETH 30 ML CUP PO PRN (12:58)
[2023-03-21] MEDS ORDERED: NITROGLYCERIN SL TABS 0.4 MG TAB SUBLINGUAL PRN (12:58)
[2023-03-21] MEDS ORDERED: RX INFO: IV CONTRAST WAS GIVEN 1 EACH MISC MISCELLANE PRN (12:58)
[2023-03-21] MEDS ORDERED: ZOLPIDEM 5 MG TAB PO PRN (12:58)
[2023-03-21] MEDS ORDERED: ATROPINE SULFATE 0.1 MG/ML 10ML SYRINGE IV PRN (12:58)
[2023-03-21] MEDS ORDERED: HEPARIN SOD,PORK IN 0.45% NACL 25,000 UNIT in 0.45% NACL 1 250ML.BAG IV SCH (13:15)
[2023-03-21] MEDS ORDERED: NITROGLYCERIN-D5W PMX 50 MG in DEXTROSE/WATER 1 250ML.BAG IV SCH (13:15)
[2023-03-21 13:33] LABS: Glucose,Whole Blood 143 mg/dL (70-110)
[2023-03-21 16:25] LABS: African American GFR (CKD) 68 (>60 ml/min/1.73 sqM); Anion Gap 9 mmol/L; Blood Urea Nitrogen 22 mg/dL (9-20); Calcium 8.5 mg/dL (8.4-10.2); Carbon Dioxide 20 mmol/L (22-30); Chloride 107 mmol/L (98-107); Glucose 139 mg/dL (74-99); Non-African American GFR(CKD) 59 (>60 ml/min/1.73 sqM); Potassium 4.3 mmol/L (3.5-5.1); Sodium 136 mmol/L (137-145)
[2023-03-21] MEDS ORDERED: ONDANSETRON 4 MG/2 ML VIAL IVP PRN (17:12)
[2023-03-21] MEDS: FUROSEMIDE 10 MG/ML 2 ML VIAL IV SCH ×2 (17:39→23:36)
[2023-03-21] MEDS: carvediloL 12.5 MG TAB PO SCH (17:39)
[2023-03-21] MEDS: TAMSULOSIN 0.4 MG CAP.ER.24H PO SCH (17:39)
[2023-03-21] MEDS: SODIUM CHLORIDE 0.9% 1,000 ML in EMPTY BAG 1 BAG IV SCH ×3 (19:50→19:51)
[2023-03-21] MEDS: ATORVASTATIN 40 MG TAB PO SCH (19:51)
[2023-03-21] MEDS: LOSARTAN 50 MG TAB PO SCH (20:07)
[2023-03-21] MEDS: TICAGRELOR 90 MG TAB PO SCH (20:07)
[2023-03-22] MEDS: SODIUM CHLORIDE 0.9% 1,000 ML in EMPTY BAG 1 BAG IV SCH ×2 (05:50→09:29)
[2023-03-22 06:06] LABS: Basophils % (A) 0 %; Eosinophils % (A) 0 %; HCT 30.8 % (39.0-53.0); HGB 10.3 gm/dL (13.0-17.5); Lymphocytes # (A) 1.4 k/uL (1.0-4.8); Lymphocytes % (A) 16 %; MCH 30.4 pg (25.0-35.0); MCHC 33.6 g/dL (31.0-37.0); MCV 90.6 fL (80.0-100.0); Monocytes # (A) 0.5 k/uL (0-1.0); Monocytes % (A) 6 %; Neutrophils # (A) 6.6 k/uL (1.3-7.7); Neutrophils % (A) 77 %; Platelet Count 148 k/uL (150-450); RDW 15.1 % (11.5-15.5); WBC 8.6 k/uL (3.8-10.6)
[2023-03-22 06:13] LABS: African American GFR (CKD) 68 (>60 ml/min/1.73 sqM); Anion Gap 9 mmol/L; Blood Urea Nitrogen 26 mg/dL (9-20); Calcium 8.5 mg/dL (8.4-10.2); Carbon Dioxide 20 mmol/L (22-30); Chloride 106 mmol/L (98-107); Glucose 105 mg/dL (74-99); Non-African American GFR(CKD) 59 (>60 ml/min/1.73 sqM); Potassium 4.4 mmol/L (3.5-5.1); Sodium 135 mmol/L (137-145)
[2023-03-22] MEDS: carvediloL 12.5 MG TAB PO SCH ×2 (06:47→17:43)
--- NOTE | 2023-03-22 07:38 | CC ---
CARDIAC CATHETERIZATION REPORT PROCEDURES PERFORMED: 1. PTCA and stenting of major diagonal branch of LAD with MARC. 2. PTCA and stenting of proximal and mid LAD with drug-eluting stents. PERFORMED BY: Dr. Brianda Ritter. ANESTHESIA: Moderate conscious sedation time was 2 hours and 18 minutes. Patient was administered Versed, Dilaudid, and morphine. Oxygen saturation, hemodynamics, and EKG were monitored closely. CLINICAL INFORMATION: Mr. Ba Sanchez is 82-year-old gentleman with a known history of CAD, previous multivessel PCI involving the circumflex and RCA. He also has history of hypertension, hyperlipidemia, decreased LV function. He underwent a right carotid endarterectomy following a CVA. I performed cardiac catheterization on February 28 and noted that he had elevated filling pressures, no gradient. RCA had a 55% mid lesion distal to a stent and 40% proximal lesion before the stent. Left main had a 15% to 20% narrowing. The LAD had a long 80% stenosis from the ostium to the midportion and from this diseased area came off a large diagonal branch. The circumflex that was stented before was patent with a high OM having a 70% narrowing and also a groove branch with a 70% narrowing. He was advised aortocoronary bypass surgery, but was seen by the Cardiac surgeon, Dr. Romero, who felt he was too high risk for an open surgery and therefore suggested percutaneous intervention. I saw the patient in the office with his , explained to them the rationale, risks, benefits, options and they understood the procedure would be a fairly high risk with a bifurcation lesion. He was brought in for the procedure after due discussion. PROCEDURE NOTE: Under local anesthesia and strict aseptic precautions, a 6-Togolese introducer was placed in the right femoral artery. Micropuncture needle technique was used. I checked LV end-diastolic pressure with a pigtail catheter and this was about 17 mmHg. There was no gradient across aortic valve. I proceeded to perform intervention. I tried a JL4 guide catheter and then an XB LAD, both of which were not easy to cannulate the left main. Finally, a JL3.5 guide catheter was used to cannulate the left main coronary artery. This was a 7-Togolese caliber catheter. There was no damping. Left main had about a 20% narrowing, looks worse in a cranial projection. I used a long run- through wire and advanced and positioned it in the diagonal branch. A short Whisper wire with a J-tip was used to pass and to advance into the distal LAD. Without predilatation, I performed PTCA with a 2.25 caliber NC Trek balloon of the diagonal branch at its origin and distally. I then deployed a 2.25 caliber 15 mm long Xience stent and this stent was placed just beyond the ostium of the diagonal branch into the lesion, which was quite tight. Excellent angiographic result was achieved. I then advanced a 2.5 caliber NC Trek balloon and dilated the entire length of LAD just distal to the diagonal branch. Subsequently, a 12 mm long 3.25 caliber Xience stent was deployed just distal to the diagonal branch. This stent was deployed at 13 to 14 atmospheres. Excellent angiographic result was achieved, but the patient suddenly lost flow in the diagonal branch, developed chest pain and transient hypotension. I used 100 mg of phenylephrine for the blood pressure. I tried to quickly wire the diagonal, but was unsuccessful. After several attempts, using a 45-degree SuperCross catheter and a Whisper wire, I was able to get into the diagonal branch and then used a 2.0 caliber balloon and dilated. Multiple inflations were given at the origin. This improved the situation, the patient's chest pain improved and he remained hemodynamically stable. After multiple attempts, I advanced and positioned a 2.0 caliber Willits stent into the ostium of the diagonal branch and the proximal end of the stent was in the LAD and this stent was deployed at 14 atmospheres. I then went ahead and dilated the stent with a 2.5 NC Trek balloon. There was significant improvement in the flow in the diagonal. I then stented the entire proximal LAD from the previously placed stent proximally toward the ostium. An 18 mm long 3.25 caliber Xience stent was deployed at 14 atmospheres. Excellent angiographic result was achieved of the LAD. However, we lost flow again in the diagonal branch and I had to go back and rewire the diagonal wire and at this time, I used a 2.25 caliber NC Trek balloon and dilated the origin of the diagonal with a good result. There was a good SULAIMAN-3 flow in the diagonal noted. The patient had relief of chest pain. His pain was about 2.2/10, hemodynamically stable. The sheath was sutured. He was sent to the room in a stable condition. The patient received 180 mg of Brilinta. He will be on aspirin and Brilinta without interruption for 1 year. He also received intravenous heparin. ACT was 264. Additional 2000 units of heparin was given as the procedure continued. Results were discussed with the patient and family. The patient will have some damage in the diagonal distribution because of the transient vessel occlusion, but hemodynamically he is stable. He was almost completely pain free. EKG is baseline with an IVCD type picture and QS pattern. The patient was sent to the ICU and will be watched very closely. Prognosis remains guarded given his poor LV function. He will also be on Lasix as well. Prognosis remains guarded. Result eventually was good and there was excellent flow in LAD and also fairly decent flow in the diagonal branch. MMKAMILLAL / IJN: [id number] / MTDD
--- NOTE | 2023-03-22 08:09 | P.PN ---
Subjective Progress Note Date: 03/22/23 Principal diagnosis: This a gentleman was admitted electively yesterday for a high risk PCI. He had some history of multivessel PCI in the past. Of late his ejection fraction was 25-30% and recently had a stroke and a carotid endarterectomy. He had a significant long area of disease in the LAD as well as a ostial and proximal portion of a major diagonal branch of about 2.25 caliber. He also has moderate disease in RCA and high obtuse minor disease of circumflex. Previously stented RCA and circumflex were patent. He was initially advised to surgery but so surgeons felt he was high risk and therefore I recommended PCI and had extensive discussion with the patient and family. Procedure was performed yesterday. There was transient occlusion of the diagonal branch. LAD had an excellent result. During the transient occlusion patient had chest pain that this was anny ntually opened up and stented as well. End result was good patient was asymptomatic comfortable. He had a very restful night he has no chest pain his EKG is baseline. He is hemodynamically stable. Urine output is good. Physical exam revealed a blood pressure is about 134/78 pulse rate is 70/m no JVD S1-S2 heard normally no significant murmurs lungs are clear abdomen is soft right groin is clean and dry the sheath is in place. Labs are good. Impression #1 ischemic cardiomyopathy with a high risk PCI performed yesterday of LAD and diagonal with strands and diagonal occlusion #2 hypertension #3 hyperlipidemia #4 history of previous multivessel PCI #5 history of CVA with carotid endarterectomy in the last few weeks. Recommendations: I am recommending that we will switch him from IV to oral Lasix tomorrow. Today he will receive 20 mg IV Lasix every 12 hours and tomorrow we will switch him to 40 mg by mouth daily. We will continue all his other oral medications. Nitroglycerin drip will be discontinued and heparin drip has already been held. His sheath will be pulled in the next 20-30 minutes. He will have an echocardiogram performed tomorrow to assess LV function. We will move him to telemetry today and possible discharge tomorrow and he has an office visit with me within a week. Discussed my thoughts in detail with the patient and also with the nurse. Patient can be moved to telemetry this evening. The femoral sheath will be pulled shortly. We will also advance his diet. Objective - Vital Signs Vital signs: Vital Signs Temp 98.5 F 03/22/23 04:00 Pulse 60 03/22/23 07:00 Resp 19 03/22/23 07:00 BP 125/66 03/22/23 01:30 Pulse Ox 99 03/22/23 07:00 FiO2 Intake & Output 03/21/23 03/22/23 03/22/23 18:59 06:59 18:59 Intake Total 914 1037.833 53.35 Output Total 1700 1550 Balance -786 -512.167 53.35 Weight 89.9 kg 90 kg Intake: IV 914 955 Heparin Sod,Pork in 0.45% 14 91 NaCl 25,000 unit In 0.45 % NaCl 1 250ml.bag @ 700 UNIT/HR 7 mls/hr IV .Q24H ROSEANNA Rx#:[id number] Nitroglycerin-D5w Pmx 50 15 39 mg In Dextrose/Water 1 250ml.bag @ 10 MCG/MIN 3 mls/hr IV .Q24H ROSEANNA Rx#: [id number] Sodium Chloride 0.9% 1, 375 825 000 ml In Empty Bag 1 bag @ 75 mls/hr IV .[id number] ROSEANNA Rx#:[id number] Intake, IV Titration 82.833 53.35 Amount Heparin Sod,Pork in 0.45% 82.833 NaCl 25,000 unit In 0.45 % NaCl 1 250ml.bag @ 700 UNIT/HR 7 mls/hr IV .Q24H ROSEANNA Rx#:[id number] Nitroglycerin-D5w Pmx 50 53.35 mg In Dextrose/Water 1 250ml.bag @ 10 MCG/MIN 3 mls/hr IV .Q24H ROSEANNA Rx#: [id number] Output: Urine 1700 1550 Other: Voiding Method Indwelling Catheter Indwelling Catheter ABP, PAP, CO, CI - Last Documented Arterial Blood Pressure 136/61 - Labs CBC & Chem 7: 03/22/23 05:44 03/22/23 05:44 Labs: Abnormal Lab Results - Last 24 Hours (Table) 03/21/23 03/21/23 03/22/23 Range/Units 13:31 15:35 05:44 RBC 3.40 L (4.30-5.90) m/uL Hgb 10.3 L (13.0-17.5) gm/dL Hct 30.8 L (39.0-53.0) % Plt Count 148 L (150-450) k/uL Sodium 136 L (137-145) mmol/L Carbon Dioxide 20 L (22-30) mmol/L BUN 22 H (9-20) mg/dL Glucose 139 H (74-99) mg/dL POC Glucose (mg/dL) 143 H (70-110) mg/dL 03/22/23 Range/Units 05:44 RBC (4.30-5.90) m/uL Hgb (13.0-17.5) gm/dL Hct (39.0-53.0) % Plt Count (150-450) k/uL Sodium 135 L (137-145) mmol/L Carbon Dioxide 20 L (22-30) mmol/L BUN 26 H (9-20) mg/dL Glucose 105 H (74-99) mg/dL POC Glucose (mg/dL) (70-110) mg/dL
[2023-03-22] MEDS ORDERED: ATROPINE SULFATE 0.1 MG/ML 10ML SYRINGE ONE (08:33)
[2023-03-22] MEDS: ASPIRIN 81 MG PO SCH (09:20)
[2023-03-22] MEDS: ATORVASTATIN 40 MG TAB PO SCH (09:20)
[2023-03-22] MEDS: FUROSEMIDE 10 MG/ML 2 ML VIAL IV SCH ×2 (09:21→20:18)
[2023-03-22] MEDS: TICAGRELOR 90 MG TAB PO SCH ×2 (09:29→20:18)
[2023-03-22] MEDS ORDERED: HYDROmorphone 0.5 MG/0.5 ML SYRINGE IVP STA (09:48)
[2023-03-22 10:08] VITALS: BMI 28.4
[2023-03-22] MEDS ORDERED: HYDROmorphone 0.5 MG/0.5 ML SYRINGE IVP PRN (10:46)
--- NOTE | 2023-03-22 15:53 | P.HPIM ---
History of Present Illness H&P Date: 03/22/23 History of present illness; patient is a 82-year-old gentleman with past medical history significant for coronary disease with multiple stents, hypertension, hyperlipidemia, CVA status post right carotid endarterectomy, cardiomyopathy who presented to the hospital for elective high risk PCI on 03/21/23. Patient was being followed up outpatient by cardiology and cardiac surgery, recent cardiac cath done on February 28 showed multivessel coronary disease, patient initially was advised CABG but patient was seen by cardiac surgery and they recommended him to be too much high risk for open surgery and recommended high risk PCI. Patient was scheduled for PCI yesterday and underwent PTCA and stenting of major diagonal branch of LAD with MARC and PTCA and stenting of proximal and mid LAD with drug-eluting stents. Post cath, internal medicine team was consulted for medical management REVIEW OF SYSTEMS: CONSTITUTIONAL: No fever, no malaise, no fatigue. HEENT: No recent visual problems or hearing problems. Denied any sore throat. CARDIOVASCULAR: No orthopnea, PND, no palpitations, no syncope. Had episode of chest pain this morning PULMONARY: No shortness of breath, no cough, no hemoptysis. GASTROINTESTINAL: No diarrhea, no nausea, no vomiting, no abdominal pain. NEUROLOGICAL: No headaches, no weakness, no numbness. HEMATOLOGICAL: Denies any bleeding or petechiae. GENITOURINARY: Denies any burning micturition, frequency, or urgency. MUSCULOSKELETAL/RHEUMATOLOGICAL: Denies any joint pain, swelling, or any muscle pain. ENDOCRINE: Denies any polyuria or polydipsia. The rest of the 14-point review of systems is negative. PHYSICAL EXAMINATION: GENERAL: The patient is alert and oriented x3, not in any acute distress. Well developed, well nourished. HEENT: Pupils are round and equally reacting to light. EOMI. No scleral icterus. No conjunctival pallor. Normocephalic, atraumatic. No pharyngeal erythema. No thyromegaly. CARDIOVASCULAR: S1 and S2 present. No murmurs, rubs, or gallops. PULMONARY: Chest is clear to auscultation, no wheezing or crackles. ABDOMEN: Soft, nontender, nondistended, normoactive bowel sounds. No palpable organomegaly. MUSCULOSKELETAL: No joint swelling or deformity. EXTREMITIES: No cyanosis, clubbing, or pedal edema. NEUROLOGICAL: Gross neurological examination did not reveal any focal deficits. SKIN: No rashes. Assessment and plan PTCA and stenting of major diagonal branch of LAD with MARC PTCA and stenting of proximal and mid LAD with drug-eluting stents. Hypertension Hyperlipidemia History of coronary artery disease History of previous CVA Symptomatic right ICA stenosis s/p trans carotid artery revascularization on 11/19/22 Left ICA stenosis of 70% Monitor vital signs Monitor CBC Monitor CMP Continue telemetry monitoring Continue aspirin and brilinta Strict I's and O's Daily weights Continue IV Lasix 20 mg every 12 Continue Lipitor, Coreg, losartan Cardiology following Labs and medication were reviewed.. Continue same treatment. Continue with symptomatic treatment. Resume home medication. Monitor labs and vitals. DVT and GI prophylaxis. Further recommendations as per clinical course of the patient Dictation was produced using [employer] dictation software. please excuse any grammatical, word or spelling errors. Past Medical History Past Medical History: Coronary Artery Disease (CAD), Heart Failure, CVA/TIA, GERD/Reflux, Hyperlipidemia, Hypertension, Myocardial Infarction ([place]), Musculoskeletal Disorder, Osteoarthritis (OA), Prostate Disorder, Skin Disorder, Thyroid Disorder Additional Past Medical History / Comment(s): Lumbar disc disease, HERNIATED DISC IN BACK. Diverticular disease with diverticulosis, BPH, [place] X2, unknown dates. lft leg weakness post cva (NO ASSISTED DEVICES). SHINGLES IN LEFT EYE. Last Myocardial Infarction Date:: UNK History of Any Multi-Drug Resistant Organisms: None Reported Past Surgical History: Adenoidectomy, Heart Catheterization With Stent, Joint Replacement, Tonsillectomy Additional Past Surgical History / Comment(s): Chato KNEE REPLACMENT. Colonoscopy with polypectomy, epidural steroid injections. carotid stents-23 Past Anesthesia/Blood Transfusion Reactions: No Reported Reaction Date of Last Stent Placement:: UNK Past Psychological History: No Psychological Hx Reported Smoking Status: Former smoker Past Alcohol Use History: Rare Additional Past Alcohol Use History / Comment(s): Quit smoking in 1966. Past Drug Use History: None Reported - Past Family History Sister(s) Family Medical History: Cancer Additional Family Medical History / Comment(s): Pancreatic cancer. Father History Unknown: Yes Family Medical History: Cancer Mother History Unknown: Yes Family Medical History: Congestive Heart Failure (CHF) Additional Family Medical History / Comment(s): AT AGE 94. Medications and Allergies Home Medications Medication Instructions Recorded Confirmed Type Terazosin HCl 5 mg PO HS 06/02/15 03/21/23 History Nitroglycerin Sl Tabs [Nitrostat] 0.4 mg SUBLINGUAL Q5M PRN #25 tab 06/04/15 03/19/23 Rx Tamsulosin [Flomax] 0.4 mg PO HS 03/20/20 03/21/23 History Furosemide [Lasix] 40 mg PO QAM 11/12/22 03/21/23 History HYDROcodone/APAP 7.5-325MG [[place] 1 tab PO Q8H PRN 11/12/22 03/19/23 History 7.5-325] Atorvastatin [Lipitor] 40 mg PO HS #30 tab 11/21/22 03/21/23 Rx Sodium Chloride 5% Ophth Oint 1 applicate LEFT EYE DAILY 03/19/23 03/21/23 History [Betty 128] Aspirin 81 mg PO DAILY tab 03/22/23 Rx Losartan [Cozaar] 50 mg PO HS #90 tab 03/22/23 Rx Ticagrelor [Brilinta] 90 mg PO BID #180 tab 03/22/23 Rx carvediloL [Coreg*] 12.5 mg PO BID-W/MEALS #180 tab 03/22/23 Rx Allergies Allergy/AdvReac Type Severity Reaction Status Date / Time No Known Allergies Allergy Verified 03/19/23 11:11 Physical Exam Vitals: Vital Signs Temp Pulse Pulse Resp BP BP Pulse Ox 03/22/23 15:00 73 18 100/54 97 03/22/23 14:45 67 13 100/54 96 03/22/23 14:30 70 15 112/53 96 03/22/23 14:15 68 13 112/53 94 L 03/22/23 14:00 66 12 108/54 97 03/22/23 13:45 66 15 108/54 97 03/22/23 13:30 64 24 113/58 98 03/22/23 13:15 68 17 113/58 96 03/22/23 13:00 80 23 123/68 96 03/22/23 12:45 64 18 123/68 97 03/22/23 12:30 68 19 124/70 96 03/22/23 12:15 82 31 H 124/70 95 03/22/23 12:00 98.0 F 61 16 130/79 96 03/22/23 11:45 58 L 15 96 03/22/23 11:30 66 19 124/72 94 L 03/22/23 11:15 61 30 H 96 03/22/23 11:00 63 16 127/63 95 03/22/23 10:45 59 L 9 L 96 03/22/23 10:30 63 20 95 03/22/23 10:15 61 20 127/66 95 03/22/23 10:00 60 13 123/69 98 03/22/23 09:45 63 22 96 03/22/23 09:30 62 19 95 03/22/23 09:15 67 23 129/57 91 L 03/22/23 09:00 65 21 102/88 93 L 03/22/23 08:52 92 L 03/22/23 08:45 65 20 101/47 79 L 03/22/23 08:30 61 18 100/66 95 03/22/23 08:15 73 20 98 03/22/23 08:00 98.1 F 63 29 H 95 03/22/23 07:45 64 20 93 L 03/22/23 07:30 66 26 H 116/67 95 03/22/23 07:15 59 L 18 95 03/22/23 07:00 60 19 99 03/22/23 06:45 73 14 95 03/22/23 06:30 62 15 95 03/22/23 06:15 60 95 03/22/23 06:00 61 15 95 03/22/23 05:45 63 22 95 03/22/23 05:30 60 96 03/22/23 05:15 56 L 96 03/22/23 05:00 61 96 03/22/23 04:45 61 16 94 L 03/22/23 04:30 54 L 17 96 03/22/23 04:15 62 15 95 03/22/23 04:00 98.5 F 64 15 96 03/22/23 03:45 70 13 98 03/22/23 03:30 70 22 95 03/22/23 03:15 60 98 03/22/23 03:00 61 95 03/22/23 02:45 66 15 96 03/22/23 02:30 73 16 93 L 03/22/23 02:15 74 95 03/22/23 02:00 60 91 L 03/22/23 01:45 60 18 94 L 03/22/23 01:30 73 18 125/66 95 03/22/23 01:15 60 15 96 03/22/23 01:00 70 16 95 03/22/23 00:45 68 20 94 L 03/22/23 00:30 61 15 95 03/22/23 00:15 63 13 125/66 93 L 03/22/23 00:00 62 17 93 L 03/21/23 23:45 61 13 138/83 95 03/21/23 23:30 70 12 95 03/21/23 23:15 67 24 95 03/21/23 23:00 61 95 03/21/23 22:45 59 L 13 96 03/21/23 22:30 67 14 96 03/21/23 22:15 75 22 97 03/21/23 22:00 64 16 94 L 03/21/23 21:45 63 15 98 03/21/23 21:30 64 93 L 03/21/23 21:15 67 13 96 03/21/23 21:08 65 96 03/21/23 21:00 62 21 95 03/21/23 20:45 77 14 96 03/21/23 20:30 62 14 93 L 03/21/23 20:15 64 14 92 L 03/21/23 20:00 98 F 76 21 136/80 94 L 03/21/23 19:45 65 19 94 L 03/21/23 19:30 64 15 97 03/21/23 19:15 71 14 135/78 96 03/21/23 19:00 68 14 147/83 96 03/21/23 18:45 64 14 146/78 97 03/21/23 18:30 61 12 132/82 95 03/21/23 18:15 64 14 142/84 95 03/21/23 18:00 64 16 147/77 95 03/21/23 17:45 73 18 138/79 97 03/21/23 17:30 60 15 165/92 96 03/21/23 17:15 82 12 145/91 96 03/21/23 17:00 64 20 144/113 93 L 03/21/23 16:45 72 14 133/73 95 03/21/23 16:30 61 14 140/85 93 L 03/21/23 16:23 98 F 55 L 15 156/72 03/21/23 16:15 60 14 130/77 96 03/21/23 16:00 97.8 F 55 L 16 130/77 97 03/21/23 15:45 57 L 14 123/77 96 Intake and Output 03/22/23 03/22/23 03/22/23 06:59 14:59 22:59 Intake Total 697.833 503.35 75 Output Total 900 910 0 Balance -202.167 -406.65 75 Intake: IV 615 450 75 Heparin Sod,Pork in 0.45% 63 NaCl 25,000 unit In 0.45 % NaCl 1 250ml.bag @ 700 UNIT/HR 7 mls/hr IV .Q24H ROSEANNA Rx#:[id number] Nitroglycerin-D5w Pmx 50 27 mg In Dextrose/Water 1 250ml.bag @ 10 MCG/MIN 3 mls/hr IV .Q24H ROSEANNA Rx#: [id number] Sodium Chloride 0.9% 1, 525 450 75 000 ml In Empty Bag 1 bag @ 75 mls/hr IV .[id number] ROSEANNA Rx#:[id number] Intake, IV Titration 82.833 53.35 Amount Heparin Sod,Pork in 0.45% 82.833 NaCl 25,000 unit In 0.45 % NaCl 1 250ml.bag @ 700 UNIT/HR 7 mls/hr IV .Q24H ROSEANNA Rx#:[id number] Nitroglycerin-D5w Pmx 50 53.35 mg In Dextrose/Water 1 250ml.bag @ 10 MCG/MIN 3 mls/hr IV .Q24H ROSEANNA Rx#: [id number] Output: Urine 900 910 0 Other: Voiding Method Indwelling Catheter Indwelling Catheter Weight 90 kg 90 kg ABP, PAP, CO, CI - Last 8 Hours Arterial Blood Pressure 121/54 Arterial Blood Pressure 150/67 Arterial Blood Pressure 135/57 Arterial Blood Pressure 140/62 Results CBC & Chem 7: 03/22/23 05:44 03/22/23 05:44 Labs: Abnormal Lab Results - Last 24 Hours (Table) 03/21/23 03/22/23 03/22/23 Range/Units 15:35 05:44 05:44 RBC 3.40 L (4.30-5.90) m/uL Hgb 10.3 L (13.0-17.5) gm/dL Hct 30.8 L (39.0-53.0) % Plt Count 148 L (150-450) k/uL Sodium 136 L 135 L (137-145) mmol/L Carbon Dioxide 20 L 20 L (22-30) mmol/L BUN 22 H 26 H (9-20) mg/dL Glucose 139 H 105 H (74-99) mg/dL Thrombosis Risk Factor Assmnt - Choose All That Apply Any of the Below Risk Factors Present?: No Other Risk Factors: No Each Risk Factor Represents 3 Points: Age 75 years or older Other congenital or acquired thrombophilia - If yes, enter type in comment: No Thrombosis Risk Factor Assessment Total Risk Factor Score: 3 Thrombosis Risk Factor Assessment Level: Very Low Risk
[2023-03-22] MEDS ORDERED: HYDROcodone/APAP 7.5-325MG 1 EACH TAB PO PRN (16:34)
[2023-03-22] MEDS: TAMSULOSIN 0.4 MG CAP.ER.24H PO SCH (17:49)
[2023-03-22] MEDS: LOSARTAN 50 MG TAB PO SCH (20:18)
[2023-03-23] MEDS: SODIUM CHLORIDE 0.9% 1,000 ML in EMPTY BAG 1 BAG IV SCH ×2 (01:29→10:06)
[2023-03-23] MEDS: carvediloL 12.5 MG TAB PO SCH (06:08)
[2023-03-23] MEDS ORDERED: FUROSEMIDE 10 MG/ML 4 ML VIAL IV SCH (09:00)
[2023-03-23] MEDS ORDERED: FUROSEMIDE 40 MG TAB PO SCH (09:00)
[2023-03-23] MEDS: ASPIRIN 81 MG PO SCH (09:18)
[2023-03-23] MEDS: ATORVASTATIN 40 MG TAB PO SCH (09:18)
[2023-03-23] MEDS: TICAGRELOR 90 MG TAB PO SCH (09:19)
[2023-03-23 10:02] VITALS: BP 124/76; PULSE 76; RESP 20; TEMP 97.9
--- NOTE | 2023-03-23 11:52 | CA ---
Transthoracic Echo Report Name: Ba Sanchez Age: 82 Gender: M : 1940 Exam Date: 03/23/2023 08:20 Exam Location: [place] [facility] Ht (in): 70 Wt (lb): 198 Ordering Physician: Qiana Ritter MD Attending/Referring Phys: Accelerator Technician Bella Galeano [facility] Procedure CPT: Indications: Assess LV function, do study on Mar 23 not befor Cardiac Hx: Technical Quality: Fair Contrast 1: Total Dose (mL): Contrast 2: Total Dose (mL): MEASUREMENTS (Male / Female) Normal Values 2D ECHO LV Diastolic Diameter PLAX 5.6 cm 4.2 - 5.9 / 3.9 - 5.3 cm LV Systolic Diameter PLAX 4.8 cm IVS Diastolic Thickness 1.1 cm 0.6 - 1.0 / 0.6 - 0.9 cm LVPW Diastolic Thickness 1.1 cm 0.6 - 1.0 / 0.6 - 0.9 cm LV Relative Wall Thickness 0.4 LV Diastolic Volume MOD BP 147.3 cm??? 67 - 155 / 56 - 104 cm??? LV Systolic Volume MOD BP 95.9 cm??? 22 - 58 / 19 - 49 cm??? LV Ejection Fraction MOD BP 34.9 % >= 55 % LV Cardiac Index MOD BP 1690.7 cm???/min???m??? LV Diastolic Volume MOD 4C 161.4 cm??? LV Systolic Volume MOD 4C 96.5 cm??? LV Ejection Fraction MOD 4C 40.2 % LV Cardiac Index MOD 4C 2136.3 cm???/min???m??? LV Diastolic Length 4C 9.5 cm LV Systolic Length 4C 9.3 cm LV Diastolic Volume MOD 2C 130.1 cm??? LV Systolic Volume MOD 2C 85.6 cm??? LV Ejection Fraction MOD 2C 34.2 % LV Cardiac Index MOD 2C 1465.0 cm???/min???m??? LV Diastolic Length 2C 9.1 cm LV Systolic Length 2C 8.2 cm DOPPLER Mitral E Point Velocity 56.7 cm/s Mitral A Point Velocity 85.5 cm/s Mitral E to A Ratio 0.7 MV Deceleration Time 171.7 ms LV E' Lateral Velocity 10.0 cm/s Mitral E to LV E' Lateral Ratio 5.7 LV E' Septal Velocity 4.1 cm/s Mitral E to LV E' Septal Ratio 13.8 TR Peak Velocity 285.2 cm/s TR Peak Gradient 32.5 mmHg Right Atrial Pressure 8.0 mmHg Pulmonary Artery Systolic Pressu 40.5 mmHg Right Ventricular Systolic Press 40.5 mmHg FINDINGS Left Ventricle Mildly increased left ventricular wall thickness. Left ventricular cavity size at the upper limits of normal. Severely increased left ventricular systolic volume. Moderately decreased left ventricular ejection fraction. Left ventricular ejection fraction is estimated at 30-35%. Mid-basal inferoseptum is hypokinetic. Inferior wall is hypokinetic. Right Ventricle Mild-moderate pulmonary hypertension. Right Atrium Left Atrium Mitral Valve Aortic Valve Tricuspid Valve Structurally normal tricuspid valve. Trace tricuspid regurgitation. Pulmonic Valve Pericardium No pericardial effusion. Aorta CONCLUSIONS Limited study for LV function Left ventricular ejection fraction 30-35% with inferior hypokinesis RVSP 40 Previewed by: Dr. Yordan Locke DO (Electronically Signed) Final Date: 23 March 2023 11:51
--- NOTE | 2023-03-23 13:19 | P.DS ---
Providers Date of admission: 03/21/23 13:13 Expected date of discharge: 03/23/23 Attending physician: Qiana Ritter Consults: 03/21/23 12:58 Consult Physician Routine Consulting Provider: Cardiology Amber Consult Reason/Comments: Post Interventional Patient Do you want consulting provider notified?: Already Contacted 03/22/23 05:56 Consult Physician Routine Consulting Provider: Reyna Mccloud Consult Reason/Comments: Medical Management Do you want consulting provider notified?: Yes, Notify in am Primary care physician: [facility] Course: Discharge diagnoses; PTCA and stenting of major diagonal branch of LAD with MARC PTCA and stenting of proximal and mid LAD with drug-eluting stents. Hypertension Hyperlipidemia History of coronary artery disease History of previous CVA Symptomatic right ICA stenosis s/p trans carotid artery revascularization on 11/19/22 Left ICA stenosis of 70% Hospital course; patient is a 82-year-old gentleman with past medical history significant for coronary disease with multiple stents, hypertension, hyperlipidemia, CVA status post right carotid endarterectomy, cardiomyopathy who presented to the hospital for elective high risk PCI on 03/21/23. Patient was being followed up outpatient by cardiology and cardiac surgery, recent cardiac cath done on February 28 showed multivessel coronary disease, patient initially was advised CABG but patient was seen by cardiac surgery and they recommended him to be too much high risk for open surgery and recommended high risk PCI. Patient was scheduled for PCI yesterday and underwent PTCA and stenting of major diagonal branch of LAD with MARC and PTCA and stenting of proximal and mid LAD with drug- eluting stents. Post cath, internal medicine team was consulted for medical management 03/23. Patient seen and examined. Cardiology recommended discharging patient on aspirin, brilinta,Lipitor, Coreg, losartan. Cardiology cleared the patient for discharge PHYSICAL EXAMINATION: GENERAL: The patient is alert and oriented x3, not in any acute distress. Well developed, well nourished. HEENT: Pupils are round and equally reacting to light. EOMI. No scleral icterus. No conjunctival pallor. Normocephalic, atraumatic. No pharyngeal erythema. No thyromegaly. CARDIOVASCULAR: S1 and S2 present. No murmurs, rubs, or gallops. PULMONARY: Chest is clear to auscultation, no wheezing or crackles. ABDOMEN: Soft, nontender, nondistended, normoactive bowel sounds. No palpable organomegaly. MUSCULOSKELETAL: No joint swelling or deformity. EXTREMITIES: No cyanosis, clubbing, or pedal edema. NEUROLOGICAL: Gross neurological examination did not reveal any focal deficits. SKIN: No rashes. Dictation was produced using [employer] dictation software. please excuse any grammatical, word or spelling errors. Patient Condition at Discharge: Good Plan - Discharge Summary Discharge Rx Participant: No New Discharge Prescriptions: New Aspirin 81 mg PO DAILY tab Ticagrelor [Brilinta] 90 mg PO BID #180 tab carvediloL [Coreg*] 12.5 mg PO BID-W/MEALS #180 tab Losartan [Cozaar] 50 mg PO HS #90 tab Continue Terazosin HCl 5 mg PO HS Nitroglycerin Sl Tabs [Nitrostat] 0.4 mg SUBLINGUAL Q5M PRN #25 tab PRN Reason: Chest Pain Tamsulosin [Flomax] 0.4 mg PO HS HYDROcodone/APAP 7.5-325MG [[place] 7.5-325] 1 tab PO Q8H PRN PRN Reason: Pain Furosemide [Lasix] 40 mg PO QAM Sodium Chloride 5% Ophth Oint [Betty 128] 1 applicate LEFT EYE DAILY Atorvastatin [Lipitor] 40 mg PO HS #30 tab Discontinued Aspirin 325 mg PO DAILY #30 tab Clopidogrel [Plavix] 75 mg PO QAM carvediloL [Coreg] 6.25 mg PO BID-W/MEALS #60 tab Discharge Medication List Terazosin HCl 5 mg PO HS 06/02/15 [History] Nitroglycerin Sl Tabs [Nitrostat] 0.4 mg SUBLINGUAL Q5M PRN #25 tab 06/04/15 [Rx] Tamsulosin [Flomax] 0.4 mg PO HS 03/20/20 [History] Furosemide [Lasix] 40 mg PO QAM 11/12/22 [History] HYDROcodone/APAP 7.5-325MG [[place] 7.5-325] 1 tab PO Q8H PRN 11/12/22 [History] Atorvastatin [Lipitor] 40 mg PO HS #30 tab 11/21/22 [Rx] Sodium Chloride 5% Ophth Oint [Betty 128] 1 applicate LEFT EYE DAILY 03/19/23 [History] Aspirin 81 mg PO DAILY tab 03/22/23 [Rx] Losartan [Cozaar] 50 mg PO HS #90 tab 03/22/23 [Rx] Ticagrelor [Brilinta] 90 mg PO BID #180 tab 03/22/23 [Rx] carvediloL [Coreg*] 12.5 mg PO BID-W/MEALS #180 tab 03/22/23 [Rx] Follow up Appointment(s)/Referral(s): Qiana Ritter MD [STAFF PHYSICIAN] - 1 Week (KEEP APPOINTMENT ALREADY MADE ON March @ 3:15PM ) Patient Instructions/Handouts: Moderate Sedation (DC), Coronary Intravascular Stent Placement (DC), After Radial Heart Catheterization (GEN) Activity/Diet/Wound Care/Special Instructions: *NO LIFTING, PUSHING, OR PULLING ANYTHING OVER 5 POUNDS FOR 5 DAYS *NO DRIVING FOR 3 DAYS *YOU CAN REMOVE YOUR DRESSING TOMORROW AND YOU CAN SHOWER AT THAT TIME - DO NOT SUBMERSE YOUR PUNCTURE SITE IN WATER FOR A FEW DAYS TO PREVENT INFECTION - SO NO TUB BATHS, POOLS, HOT TUBS, DISHES...ETC *ANY SIGNS OF BLEEDING (HARDNESS, SWELLING, OR EXCESSIVE BRUISING) HOLD DIRECT PRESSURE ON YOUR PUNCTURE SITE AND COME TO THE NEAREST EMERGENCY ROOM TO GET YOUR PUNCTURE SITE LOOKED AT - DO NOT DRIVE YOURSELF! EITHER CALL EMS OR HAVE SOMEONE DRIVE YOU! Discharge Disposition: HOME SELF-CARE
--- NOTE | 2023-03-25 20:17 | CDI ---
Documentation Clarification Form Date: 03/25/2023 08:10:54 PM From: Scarlet Garcia Phone: Admit Date: 03/21/2023 01:13:00 PM Patient Name: Ba Sanchez Visit Number: [id number] Discharge Date: 03/23/2023 12:20:00 PM ATTENTION: The Clinical Documentation Specialists (CDI) and [facility] Coding Staff appreciate your assistance in clarifying documentation. Please respond to the clarification below the line at the bottom and electronically sign. The CDI & [facility] Coding staff will review the response and follow-up if needed. Please note: Queries are made part of the Legal Health Record. If you have any questions, please contact the author of this message via ITS. Dr. Dyllan Marshall Your patient has the documented diagnosis of unspecified CHF per H&P. Additional information regarding the type of CHF is requested. History/Risk Factors: 82yo M, CAD, HTN, HLD, Hx CVA, LICA stenosis, BPH, ICM, Hx CA Clinical Indicators: VS/Pulse OX: 99 Echocardiogram Results: Limitedstudyfor LV function Left ventricular ejection fraction 30-35% with inferior hypokinesis; RVSP 40 Treatment: Patient seen and examined. Cardiology recommended discharging patient on aspirin, brilinta, Lipitor, Coreg, losartan. Cardiology cleared the patient for discharge In your professional opinion, can you please clarify the type of CHF if known? [ ] Chronic Systolic Heart Failure (reduced EF) [ x ] Chronic Diastolic Heart Failure (preserved EF) [ ] Chronic Systolic & Diastolic Heart Failure [ ] Other, please specify [ ] Unable to determine (Template Last Revised: June 2020) MTDD
--- NOTE | 2023-03-27 09:22 | CDI ---
Documentation Clarification Form Date: 03/27/2023 08:50:36 AM From: Soraya Montenegro RN CCDS Phone: [phone] Admit Date: 03/21/2023 01:13:00 PM Patient Name: Ba Sanchez Visit Number: [id number] Discharge Date: 03/23/2023 12:20:00 PM ATTENTION: The Clinical Documentation Specialists (CDI) and [facility] Coding Staff appreciate your assistance in clarifying documentation. Please respond to the clarification below the line at the bottom and electronically sign. The CDI & [facility] Coding staff will review the response and follow-up if needed. Please note: Queries are made part of the Legal Health Record. If you have any questions, please contact the author of this message via ITS. Dr. Qiana Ritter Hypotension is documented 03/21, Cardiac Catheterization note and patient had Cardiac Catheterization 03/21. Additional clarification is requested regarding the relationship, if any, that exists between the diagnosis and the procedure. Patients Admitting Diagnosis: Coronary Artery disease Post-Operative Diagnosis: Coronary Artery disease Procedure performed: PTCA and stenting of major diagonal branch of LAD with MARC. PTCA and stenting of proximal and mid LAD with drug-eluting stents. History/Risk Factors: 82-year-old male presented for elective PTCA and stenting as patient was high risk of CABG. Medical History: CAD, CHF, HLD, [place] x 2 and Heart catheterization with stents. 03/22, H&P. Clinical Indicators: PTCA note, 03/21: Excellent angiographic result was achieved, but the patient suddenly lost flow in the diagonal branch, developed chest pain and transient hypotension. Treatment: Phylephrine 100mg IV x 1 What relationship, if any, exists between the diagnosis of hypotension and the procedure: [ ] Hypotension is a complication of surgical procedure [ ] Hypotension is an expected outcome of the surgical procedure [ ] Hypotension is related to patients co-morbid condition(s) of [insert co- morbid dxs] & not a complication of the procedure [ ] Other please specify ____ [ ] Unable to determine (Template Last Revised: July 2020) Hypotension is a complication of surgical procedure MTDD
== END 2023-03-23 12:20 | disposition home or self-care (01) | DRG 321 ==
LOC: CATHCVL 07:41 → 2SICU 12:42 → CATHCVL 13:13
PROVIDERS: ADMIT Internal Medicine Interventional Cardiology; ATTEND Internal Medicine Interventional Cardiology
PROC: 4A023N7 Measurement of Cardiac Sampling and Pressure, Left Heart, Percutaneous Approach (ICD-10-PCS; principal; 2023-03-22)
PROC: 027137Z Dilation of Coronary Artery, Two Arteries with Four or More Drug-eluting Intraluminal Devices, Percutaneous Approach (ICD-10-PCS; 2023-03-22)
PROC: B2111ZZ Fluoroscopy of Multiple Coronary Arteries using Low Osmolar Contrast (ICD-10-PCS; 2023-03-22)
PROC: 3E043XZ Introduction of Vasopressor into Central Vein, Percutaneous Approach (ICD-10-PCS; 2023-03-22)
DX: I25.10 Atherosclerotic heart disease of native coronary artery without angina pectoris (principal); I50.32 Chronic diastolic (congestive) heart failure; I11.0 Hypertensive heart disease with heart failure; I69.344 Monoplegia of lower limb following cerebral infarction affecting left non-dominant side; I95.81 Postprocedural hypotension; E78.5 Hyperlipidemia, unspecified; I65.22 Occlusion and stenosis of left carotid artery; K21.9 Gastro-esophageal reflux disease without esophagitis; M51.9 Unspecified thoracic, thoracolumbar and lumbosacral intervertebral disc disorder; N40.0 Benign prostatic hyperplasia without lower urinary tract symptoms; I25.5 Ischemic cardiomyopathy; I25.2 Old myocardial infarction; Z79.02 Long term (current) use of antithrombotics/antiplatelets; Z79.82 Long term (current) use of aspirin; Z79.899 Other long term (current) drug therapy; Z87.891 Personal history of nicotine dependence; Z82.49 Family history of ischemic heart disease and other diseases of the circulatory system; Z95.5 Presence of coronary angioplasty implant and graft
CPT/HCPCS: 80048; 85025; 85730; 93308

== ENCOUNTER 2023-04-04 11:15 | Inpatient (IN) | payer MEDICARE, BC ==
[2023-04-04 12:37] LABS: Basophils % (A) 1 %; Eosinophils # (A) 0.5 k/uL (0-0.7); Eosinophils % (A) 7 %; HCT 30.9 % (39.0-53.0); HGB 10.5 gm/dL (13.0-17.5); Lymphocytes # (A) 1.5 k/uL (1.0-4.8); Lymphocytes % (A) 19 %; MCH 30.5 pg (25.0-35.0); MCHC 34.1 g/dL (31.0-37.0); MCV 89.5 fL (80.0-100.0); Mean Platelet Volume 8.1; Monocytes # (A) 0.4 k/uL (0-1.0); Monocytes % (A) 5 %; Neutrophils # (A) 5.3 k/uL (1.3-7.7); Neutrophils % (A) 69 %; Platelet Count 245 k/uL (150-450); RBC 3.45 m/uL (4.30-5.90); RDW 14.1 % (11.5-15.5); WBC 7.7 k/uL (3.8-10.6)
[2023-04-04 12:43] LABS: ALT 17 U/L (4-49); African American GFR (CKD) 41 (>60 ml/min/1.73 sqM); Albumin 3.8 g/dL (3.5-5.0); Anion Gap 14 mmol/L; Blood Urea Nitrogen 41 mg/dL (9-20); Carbon Dioxide 23 mmol/L (22-30); Chloride 97 mmol/L (98-107); Glucose 136 mg/dL (74-99); Non-African American GFR(CKD) 35 (>60 ml/min/1.73 sqM); Partial Thromboplastin Time 24.6 sec (22.0-30.0); Prothrombin Time 10.9 sec (10.0-12.5); Sodium 134 mmol/L (137-145); Total Bilirubin 0.6 mg/dL (0.2-1.3); Total Protein 6.7 g/dL (6.3-8.2)
[2023-04-04 13:01] LABS: AST 24 U/L (17-59); Alkaline Phosphatase 70 U/L (38-126); Potassium 3.5 mmol/L (3.5-5.1)
--- NOTE | 2023-04-04 14:33 | ED ---
Weakness HPI - General Chief complaint: Weakness Stated complaint: heart/chest pains sob Time Seen by Provider: 04/04/23 14:03 Source: patient Mode of arrival: wheelchair Limitations: no limitations - History of Present Illness Initial comments: Patient's 82-year-old gentleman with history of coronary artery disease recent stent placement 2 weeks ago, hyperlipidemia and other comorbidities who presents emergency room with complaints of shortness of breath and deterioration in condition. Patient states he has not felt well since having the stents placed 2 weeks ago. Patient states he is deteriorated significantly. He has intermittent shortness of breath at rest and while ambulating. He is now fairly bedbound because he is so weak. Patient has intermittent swelling to the left leg but denies any new pain. Denies any history of DVT or PE. Denies any fevers. Patient denies any hemoptysis. He has some Brilinta and Plavix. Patient called her conductor road freight's office today who told him to come into the emergency room. - Related Data Home Medications Medication Instructions Recorded Confirmed Terazosin HCl 5 mg PO HS 06/02/15 04/04/23 Tamsulosin [Flomax] 0.4 mg PO HS 03/20/20 04/04/23 Furosemide [Lasix] 40 mg PO BID@0700,1400 11/12/22 04/04/23 HYDROcodone/APAP 7.5-325MG [[place] 1 tab PO Q8H PRN 11/12/22 04/04/23 7.5-325] Previous Rx's Medication Instructions Recorded Nitroglycerin Sl Tabs [Nitrostat] 0.4 mg SUBLINGUAL Q5M PRN #25 tab 06/04/15 Atorvastatin [Lipitor] 40 mg PO HS #30 tab 11/21/22 Aspirin 81 mg PO DAILY tab 03/22/23 Losartan [Cozaar] 50 mg PO HS #90 tab 03/22/23 Ticagrelor [Brilinta] 90 mg PO BID #180 tab 03/22/23 carvediloL [Coreg*] 12.5 mg PO BID-W/MEALS #180 tab 03/22/23 Allergies Allergy/AdvReac Type Severity Reaction Status Date / Time No Known Allergies Allergy Verified 04/04/23 15:58 Review of Systems ROS Statement: Those systems with pertinent positive or pertinent negative responses have been documented in the HPI. ROS Other: All systems not noted in ROS Statement are negative. Past Medical History Past Medical History: Coronary Artery Disease (CAD), Heart Failure, CVA/TIA, GERD/Reflux, Hyperlipidemia, Hypertension, Myocardial Infarction (WA), Musculoskeletal Disorder, Osteoarthritis (OA), Prostate Disorder, Skin Disorder, Thyroid Disorder Additional Past Medical History / Comment(s): Lumbar disc disease, HERNIATED DISC IN BACK. Diverticular disease with diverticulosis, BPH, [place] X2, unknown dates. lft leg weakness post cva (NO ASSISTED DEVICES). SHINGLES IN LEFT EYE. Last Myocardial Infarction Date:: UNK History of Any Multi-Drug Resistant Organisms: None Reported Past Surgical History: Adenoidectomy, Heart Catheterization With Stent, Joint Replacement, Tonsillectomy Additional Past Surgical History / Comment(s): Chato KNEE REPLACMENT. Colonoscopy with polypectomy, epidural steroid injections. carotid stents-23 Past Anesthesia/Blood Transfusion Reactions: No Reported Reaction Date of Last Stent Placement:: UNK Past Psychological History: No Psychological Hx Reported Smoking Status: Former smoker Past Alcohol Use History: Rare Past Drug Use History: None Reported - Past Family History Sister(s) Family Medical History: Cancer Additional Family Medical History / Comment(s): Pancreatic cancer. Father History Unknown: Yes Family Medical History: Cancer Mother History Unknown: Yes Family Medical History: Congestive Heart Failure (CHF) Additional Family Medical History / Comment(s): AT AGE 94. General Exam Limitations: no limitations General appearance: alert, in no apparent distress Head exam: Present: atraumatic Eye exam: Present: normal appearance, PERRL, EOMI. Absent: scleral icterus, conjunctival injection, periorbital swelling Respiratory exam: Present: normal lung sounds bilaterally, accessory muscle use (Intermittent dyspnea and occasionally working harder to breathe however lungs are clear to auscultation), other Cardiovascular Exam: Present: regular rate, normal rhythm GI/Abdominal exam: Present: soft Extremities exam: Present: full ROM Back exam: Present: full ROM Neurological exam: Present: alert, oriented X3, CN II-XII intact Psychiatric exam: Present: normal affect, normal mood Skin exam: Present: warm, dry Course Vital Signs 04/04/23 04/04/23 04/04/23 11:34 13:48 15:00 Temperature 98.4 F Pulse Rate 71 72 66 Respiratory 418 H 20 20 Rate Blood Pressure 111/65 121/77 147/75 O2 Sat by Pulse 100 100 99 Oximetry - Reevaluation(s) Reevaluation #1: 04/04/23 16:51 Patient will be admitted to the hospital for CHF exacerbation and elevated troponins. They will trend the troponin is down. Patient was given IV Lasix in the emergency room and will be given further doses of IV Lasix. We'll likely need an echo. I discussed the admission with the patient and family at the bedside. I discussed patient's symptoms are And admission plan with attending physician Dr. Canchola today. 04/04/23 16:52 EKG Findings - EKG Comments: EKG Findings:: EKG shows sinus rhythm at a rate of 68 bpm, left bundle branch block, comparable to more recent EKG. No acute ST segment elevation Medical Decision Making - Medical Decision Making Was pt. sent in by a medical professional or institution (, DEMETRIUS, TUBE CLEANING OPERATOR, urgent care, hospital, or fpc...) When possible be specific @ -Sent in by conductor road freight Did you speak to anyone other than the patient for history (EMS, parent, family, police, friend...)? What history was obtained from this source @ - and daughter at the bedside Did you review nursing and triage notes (agree or disagree)? Why? @ -[I reviewed and agree with nursing and triage notes] Were old charts reviewed (outside hosp., previous admission, EMS record, old EKG, old radiological studies, urgent care reports/EKG's, fpc records)? Report findings @ -Yes recent charts were reviewed including recent cardiac surgery, cardiac admission and medication records Differential Diagnosis (chest pain, altered mental status, abdominal pain women, abdominal pain men, vaginal bleeding, weakness, fever, dyspnea, syncope, headache, dizziness, GI bleed, back pain, seizure, CVA, palpatations, mental health, musculoskeletal)? @ -CHF exacerbation, pneumonia, WA, angina EKG interpreted by me (3pts min.). @ -EKG shows sinus rhythm with left bundle branch block, rate of 68 beats per minute, no acute ST segment elevation X-rays interpreted by me (1pt min.). @ -No vascular congestion or pneumonia seen on chest x-ray. No pneumothorax. CT interpreted by me (1pt min.). @ -[None done] U/S interpreted by me (1pt. min.). @ -[None done] What testing was considered but not performed or refused? (CT, X-rays, U/S, labs)? Why? @ -[None] What meds were considered but not given or refused? Why? @ -[None] Did you discuss the management of the patient with other professionals (professionals i.e. Dr., PA, TUBE CLEANING OPERATOR, lab, RT, psych nurse, social sciences professor, janitor helper, teacher, security flex officer, case work aide)? Give summary @ -[I spoke with admitting the [facility] physician Dr. Stephens regarding patient's admitted for CHF exacerbation and elevated troponins. He will continue further cardiac care upon admission Was smoking cessation discussed for >3mins.? @ -[No] Was critical care preformed (if so, how long)? @ -[No] Were there social determinants of health that impacted care today? How? (Homelessness, low income, unemployed, alcoholism, drug addiction, transportation, low edu. Level, literacy, decrease access to med. care, snf, rehab)? @ -[No] Was there de-escalation of care discussed even if they declined (Discuss DNR or withdrawal of care, Hospice)? DNR status @ -[No] What co-morbidities impacted this encounter? (DM, HTN, Smoking, COPD, CAD, C ancer, CVA, ARF, Chemo, Hep., AIDS, mental health diagnosis, sleep apnea, morbid obesity)? @ -Recent cardiac stents 4 Was patient admitted / discharged? Hospital course, mention meds given and route, prescriptions, significant lab abnormalities, going to OR and other pertinent info. @ -Patient will be admitted to the hospital for continued cardiac evaluation and further management of these new onset CHF exacerbation. We'll continue IV L asix and trending the troponins. Undiagnosed new problem with uncertain prognosis? @ -Yes CHF Drug Therapy requiring intensive monitoring for toxicity (Heparin, Nitro, Insulin, Cardizem)? @ -[No] Were any procedures done? @ -[No] Diagnosis/symptom? @ -New-onset CHF, dyspnea, elevated troponin Acute, or Chronic, or Acute on Chronic? @ -Acute Uncomplicated (without systemic symptoms) or Complicated (systemic symptoms)? @ -Gated Side effects of treatment? @ -[No] Exacerbation, Progression, or Severe Exacerbation? @ -Progression Poses a threat to life or bodily function? How? (Chest pain, USA, WA, pneumonia, PE, COPD, DKA, ARF, appy, cholecystitis, CVA, Diverticulitis, Homicidal, Suicidal, threat to staff... and all critical care pts) @ -Since a threat to life or deformity or organ failure - Lab Data Result diagrams: 04/04/23 12:12 04/04/23 12:12 Lab Results 04/04/23 04/04/23 04/04/23 Range/Units 12:12 12:12 12:12 WBC 7.7 (3.8-10.6) k/uL RBC 3.45 L (4.30-5.90) m/uL Hgb 10.5 L (13.0-17.5) gm/dL Hct 30.9 L (39.0-53.0) % MCV 89.5 (80.0-100.0) fL MCH 30.5 (25.0-35.0) pg MCHC 34.1 (31.0-37.0) g/dL RDW 14.1 (11.5-15.5) % Plt Count 245 (150-450) k/uL MPV 8.1 Neutrophils % 69 % Lymphocytes % 19 % Monocytes % 5 % Eosinophils % 7 % Basophils % 1 % Neutrophils # 5.3 (1.3-7.7) k/uL Lymphocytes # 1.5 (1.0-4.8) k/uL Monocytes # 0.4 (0-1.0) k/uL Eosinophils # 0.5 (0-0.7) k/uL Basophils # 0.0 (0-0.2) k/uL PT 10.9 (10.0-12.5) sec INR 1.0 (<1.2) APTT 24.6 (22.0-30.0) sec Sodium 134 L (137-145) mmol/L Potassium 3.5 (3.5-5.1) mmol/L Chloride 97 L (98-107) mmol/L Carbon Dioxide 23 (22-30) mmol/L Anion Gap 14 mmol/L BUN 41 H (9-20) mg/dL Creatinine 1.74 H (0.66-1.25) mg/dL Est GFR (CKD-EPI)AfAm 41 (>60 ml/min/1.73 sqM) Est GFR (CKD-EPI)NonAf 35 (>60 ml/min/1.73 sqM) Glucose 136 H (74-99) mg/dL Calcium 9.0 (8.4-10.2) mg/dL Total Bilirubin 0.6 (0.2-1.3) mg/dL AST 24 (17-59) U/L ALT 17 (4-49) U/L Alkaline Phosphatase 70 (38-126) U/L Troponin I (0.000-0.034) ng/mL NT-Pro-B Natriuret Pep pg/mL Total Protein 6.7 (6.3-8.2) g/dL Albumin 3.8 (3.5-5.0) g/dL 04/04/23 04/04/23 04/04/23 Range/Units 12:12 14:43 14:43 WBC (3.8-10.6) k/uL RBC (4.30-5.90) m/uL Hgb (13.0-17.5) gm/dL Hct (39.0-53.0) % MCV (80.0-100.0) fL MCH (25.0-35.0) pg MCHC (31.0-37.0) g/dL RDW (11.5-15.5) % Plt Count (150-450) k/uL MPV Neutrophils % % Lymphocytes % % Monocytes % % Eosinophils % % Basophils % % Neutrophils # (1.3-7.7) k/uL Lymphocytes # (1.0-4.8) k/uL Monocytes # (0-1.0) k/uL Eosinophils # (0-0.7) k/uL Basophils # (0-0.2) k/uL PT 10.7 (10.0-12.5) sec INR 1.0 (<1.2) APTT 25.1 (22.0-30.0) sec Sodium (137-145) mmol/L Potassium (3.5-5.1) mmol/L Chloride (98-107) mmol/L Carbon Dioxide (22-30) mmol/L Anion Gap mmol/L BUN (9-20) mg/dL Creatinine (0.66-1.25) mg/dL Est GFR (CKD-EPI)AfAm (>60 ml/min/1.73 sqM) Est GFR (CKD-EPI)NonAf (>60 ml/min/1.73 sqM) Glucose (74-99) mg/dL Calcium (8.4-10.2) mg/dL Total Bilirubin (0.2-1.3) mg/dL AST (17-59) U/L ALT (4-49) U/L Alkaline Phosphatase (38-126) U/L Troponin I 0.619 H* (0.000-0.034) ng/mL NT-Pro-B Natriuret Pep 4400 pg/mL Total Protein (6.3-8.2) g/dL Albumin (3.5-5.0) g/dL - EKG Data -: EKG Interpreted by Me - Radiology Data Radiology results: report reviewed, image reviewed Disposition Clinical Impression: CHF (congestive heart failure), Elevated troponin Disposition: ADMITTED IP TO THIS [facility] Condition: Fair Is patient prescribed a controlled substance at d/c from ED?: No Referrals: Armen Adames MD [Primary Care Provider] - 1-2 days Decision to Admit Reason: Admit from [facility] Decision Time: 16:55
--- NOTE | 2023-04-04 15:05 | XR ---
EXAMINATION TYPE: XR chest 2V DATE OF EXAM: 04/04/2023 2:58 PM CLINICAL INDICATION:Male, 82 years old with history of shortness of breath; PHH COMPARISON: Chest radiographs from 01/13/2023 TECHNIQUE: XR chest 2V Frontal and lateral views of the chest. FINDINGS: Lungs/Pleura: There is flattening of the diaphragm with increased lucency of the lungs. No evidence o f pneumothorax, pleural effusion or focal consolidation. Pulmonary vascularity: Unremarkable. Heart/mediastinum: Cardiomediastinal silhouette is unremarkable. Musculoskeletal: No acute osseous pathology. IMPRESSION: 1. No acute cardiopulmonary disease process. 2. COPD changes.
[2023-04-04 15:08] LABS: Partial Thromboplastin Time 25.1 sec (22.0-30.0); Prothrombin Time 10.7 sec (10.0-12.5)
--- NOTE | 2023-04-04 15:42 | US ---
EXAMINATION TYPE: US venous doppler duplex LE LT DATE OF EXAM: 04/04/2023 3:35 PM COMPARISON: NONE CLINICAL INDICATION: Male, 82 years old with history of swelling; Swelling to left leg, no known prio r DVT SIDE PERFORMED: Left TECHNIQUE: The lower extremity deep venous system is examined utilizing real time linear array sonog melvi with graded compression, doppler sonography and color-flow sonography. VESSELS IMAGED: Common Femoral Vein Deep Femoral Vein Greater Saphenous Vein * Femoral Vein Popliteal Vein Small Saphenous Vein * Proximal Calf Veins (* superficial vessels) Left Leg: Negative for DVT IMPRESSION: 1. Left lower extremity ultrasound negative for deep venous thrombosis.
[2023-04-04] MEDS ORDERED: FUROSEMIDE 10 MG/ML 4 ML VIAL IV STA (16:24)
[2023-04-04] MEDS ORDERED: FUROSEMIDE 10 MG/ML 4 ML VIAL IV SCH (16:30)
[2023-04-04 17:55] LABS: NT-Pro-B-Type Natriuretic Pept 4550 pg/mL
[2023-04-05] MEDS: FUROSEMIDE 10 MG/ML 4 ML VIAL IV SCH ×4 (00:30→23:04)
[2023-04-05 02:31] LABS: Chol/HDL Ratio 4.54 Ratio; LDL Cholesterol,Calculated 61.5 mg/dL (0.0-131.0)
[2023-04-05] MEDS ORDERED: ONDANSETRON 4 MG/2 ML VIAL IVP STA (07:50)
[2023-04-05] MEDS ORDERED: ONDANSETRON 4 MG/2 ML VIAL IVP PRN (07:50)
[2023-04-05] MEDS ORDERED: NITROGLYCERIN SL TABS 0.4 MG TAB SUBLINGUAL PRN (07:51)
--- NOTE | 2023-04-05 08:00 | P.HPIM ---
History of Present Illness This is a pleasant 52 years old male with past medical history of chronic Heart Failure, CVA/TIA, GERD/Reflux, Hyperlipidemia, Hypertension, coronary artery disease status post stent,Osteoarthritis , BPH, hypothyroidism pt has Multivessel coronary artery disease, CVS team found the pt is not a good surgical candidate , instead he got pci to LAD AND Diagonal branch on 03/22 Since the procedure patient has been feeling generally weak and some short of breath, he called his metaphysicist office dr rodriguez yesterday who advised him to come to the hospital pt is lying in bed generally weak, with malaise. Mildly tachypneic no ortho pnea, no paroxysmal nocturnal dyspnea. Patient denies chest pain or discomfort. Patient says that his symptoms been going on since his been discharged from the hospital about 2 weeks ago, denies worsening dyspnea. Also he complains from lower abdominal cramps, 12/03. Low appetite with occasional nausea especially prandial nausea. He has also loses stool once every other day and he wanted 1 yesterday. No vomiting. No dysuria Vitals are stable Patient has unremarkable CBC, INR. Creatinine 1.7 ProBNP is elevated 4550 Troponin elevated 0.062 and 0.5 Rest of BMP is unremarkable. Liver enzymes not elevated. LDL is 61 EKG showing normal sinus rhythm at [address]-T changes, left bundle branch block Chest x-ray: 1. No acute cardiopulmonary disease process. 2. COPD changes. I reviewed chest x-ray and agree with these findings Duplex ultrasound: Negative for DVT. Patient was started on IV Lasix 40 mg every 8 hours Review of Systems Review of systems CONSTITUTIONAL: No fever, no malaise, no fatigue. HEENT: No recent visual problems or hearing problems. Denied any sore throat. CARDIOVASCULAR: No orthopnea, PND, no palpitations, no syncope. PULMONARY: No chest wall tenderness, no hemoptysis. GASTROINTESTINAL: No diarrhea, no nausea, no vomiting, no abdominal pain. Normoactive bowel sounds. NEUROLOGICAL: No headaches, no weakness, no numbness. HEMATOLOGICAL: Denies any bleeding or petechiae. GENITOURINARY: Denies any burning micturition, frequency, or urgency. MUSCULOSKELETAL/RHEUMATOLOGICAL: Denies any joint pain, swelling, or any muscle pain. ENDOCRINE: Denies any polyuria or polydipsia. 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 Diverticular disease with diverticulosis, BPH, PR X2, unknown dates. lft leg weakness post cva (NO ASSISTED DEVICES). SHINGLES IN LEFT EYE. 03/19 cardiac stents Last Myocardial Infarction Date:: UNK History of Any Multi-Drug Resistant Organisms: None Reported Past Surgical History: Adenoidectomy, Heart Catheterization With Stent, Joint Replacement, Tonsillectomy Additional Past Surgical History / Comment(s): Chato KNEE REPLACMENT. Colonoscopy with polypectomy, epidural steroid injections. carotid stents- Past Anesthesia/Blood Transfusion Reactions: No Reported Reaction Date of Last Stent Placement:: UNK Past Psychological History: No Psychological Hx Reported Smoking Status: Former smoker Past Alcohol Use History: Rare Additional Past Alcohol Use History / Comment(s): Quit smoking in 1966. Past Drug Use History: None Reported - Past Family History Sister(s) Family Medical History: Cancer Additional Family Medical History / Comment(s): Pancreatic cancer. Father History Unknown: Yes Family Medical History: Cancer Mother History Unknown: Yes Family Medical History: Congestive Heart Failure (CHF) Additional Family Medical History / Comment(s): AT AGE 94. Medications and Allergies Home Medications Medication Instructions Recorded Confirmed Type Terazosin HCl 5 mg PO HS 06/02/15 04/04/23 History Nitroglycerin Sl Tabs [Nitrostat] 0.4 mg SUBLINGUAL Q5M PRN #25 tab 06/04/15 04/04/23 Rx Tamsulosin [Flomax] 0.4 mg PO HS 03/20/20 04/04/23 History Furosemide [Lasix] 40 mg PO BID@0700,1400 11/12/22 04/04/23 History HYDROcodone/APAP 7.5-325MG [[place] 1 tab PO Q8H PRN 11/12/22 04/04/23 History 7.5-325] Atorvastatin [Lipitor] 40 mg PO HS #30 tab 11/21/22 04/04/23 Rx Aspirin 81 mg PO DAILY tab 03/22/23 04/04/23 Rx Losartan [Cozaar] 50 mg PO HS #90 tab 03/22/23 04/04/23 Rx Ticagrelor [Brilinta] 90 mg PO BID #180 tab 03/22/23 04/04/23 Rx carvediloL [Coreg*] 12.5 mg PO BID-W/MEALS #180 tab 03/22/23 04/04/23 Rx Allergies Allergy/AdvReac Type Severity Reaction Status Date / Time No Known Allergies Allergy Verified 04/04/23 15:58 Physical Exam Vitals: Vital Signs Temp Pulse Pulse Resp BP BP Pulse Ox 04/05/23 04:00 98.0 F 76 18 142/81 96 04/05/23 00:00 97.3 F L 83 18 131/66 96 04/04/23 20:00 97.5 F L 74 18 120/67 97 04/04/23 16:43 66 18 126/79 99 04/04/23 16:00 66 16 122/104 98 04/04/23 15:00 67 16 134/79 94 L 04/04/23 14:00 62 18 121/77 100 04/04/23 13:48 72 20 121/77 100 04/04/23 13:44 21 04/04/23 11:34 98.4 F 71 418 H 111/65 100 Intake and Output 04/04/23 04/05/23 04/05/23 22:59 06:59 14:59 Other: Weight 83.915 kg GENERAL: The patient is alert and oriented x3, not in any acute distress. Well developed, well nourished. HEENT: Pupils are round and equally reacting to light. EOMI. No scleral icterus. No conjunctival pallor. Normocephalic, atraumatic. No pharyngeal erythema. No thyromegaly. CARDIOVASCULAR: S1 and S2 present. No murmurs, rubs, or gallops. PULMONARY: Chest is clear to auscultation, no wheezing , no crackles. ABDOMEN: Soft, nontender, nondistended, normoactive bowel sounds. No palpable organomegaly. MUSCULOSKELETAL: No joint swelling or deformity. EXTREMITIES: No cyanosis, clubbing, or pedal edema. NEUROLOGICAL: Gross neurological examination did not reveal any focal deficits. SKIN: No rashes. no petechiae. Results CBC & Chem 7: 04/04/23 12:12 04/04/23 12:12 Labs: Abnormal Lab Results - Last 24 Hours (Table) 04/04/23 04/04/23 04/04/23 Range/Units 12:12 12:12 12:12 RBC 3.45 L (4.30-5.90) m/uL Hgb 10.5 L (13.0-17.5) gm/dL Hct 30.9 L (39.0-53.0) % Sodium 134 L (137-145) mmol/L Chloride 97 L (98-107) mmol/L BUN 41 H (9-20) mg/dL Creatinine 1.74 H (0.66-1.25) mg/dL Glucose 136 H (74-99) mg/dL Troponin I 0.619 H* (0.000-0.034) ng/mL HDL Cholesterol (40.00-60.00) mg/dL 04/04/23 04/04/23 04/04/23 Range/Units 17:11 17:11 20:44 RBC (4.30-5.90) m/uL Hgb (13.0-17.5) gm/dL Hct (39.0-53.0) % Sodium (137-145) mmol/L Chloride (98-107) mmol/L BUN (9-20) mg/dL Creatinine (0.66-1.25) mg/dL Glucose (74-99) mg/dL Troponin I 0.615 H* 0.528 H* (0.000-0.034) ng/mL HDL Cholesterol 24.90 L (40.00-60.00) mg/dL Thrombosis Risk Factor Assmnt - Choose All That Apply Each Factor Represents 1 point: Obesity (BMI >25) Each Risk Factor Represents 3 Points: Age 75 years or older Thrombosis Risk Factor Assessment Total Risk Factor Score: 4 Thrombosis Risk Factor Assessment Level: Moderate Risk Assessment and Plan Assessment: Generalized weakness Left lower quadrant abdominal pain and tenderness Ischemic cardiomyopathy with congestive heart failure, ejection fraction 25-30% Acute kidney injury Multivessel coronary artery disease, surgical candidate status post pci to LAD AND Diagonal branch on 03/22 Elevated troponin most likely secondary to CHF and renal disease History of CVA and left hemiparesis, improved Internal carotid artery stenosis status post right carotid artery stenting Hypertension Hyperlipidemia History of coronary artery disease status post stent History of osteoarthritis BPH Hypothyroidism Plan: check ct of bad and pelvis without iv contrast c diff hold losartan for jorge c/w aspirin and brilinta Cardiology consult Labs and medication were reviewed.. Continue same treatment. Continue with symptomatic treatment. Resume home medication. Monitor labs and vitals. DVT and GI prophylaxis. Further recommendations as per clinical course of the patient DVT prophylaxis: Subcutaneous heparin GI Prophylaxis: Pepcid PT/OT: Pending Prognosis is guarded
[2023-04-05] MEDS: TICAGRELOR 90 MG TAB PO SCH ×2 (09:23→19:38)
[2023-04-05] MEDS: IOPAMIDOL CONTRAST (ORAL USE) VIAL PO PRN ×2 (09:23→10:28)
[2023-04-05] MEDS: ASPIRIN 81 MG PO SCH (09:23)
--- NOTE | 2023-04-05 10:16 | CONS ---
CONSULTATION CHIEF COMPLAINT: Shortness of breath. HISTORY OF PRESENT ILLNESS: Ba is an 82-year-old gentleman with history of ischemic cardiomyopathy, multivessel coronary artery disease, status post angioplasty of right coronary artery and circumflex coronary artery, who recently underwent cardiac catheterization and was found to have significant disease involving LAD and diagonal with a moderate disease in circumflex coronary artery, was evaluated by Surgery, thought not to be a good surgical candidate and underwent angioplasty of the LAD with a diagonal branch. It was a very complicated intervention with transient occlusion of the vessels during intervention and dayana-intervention myocardial infarction. This procedure was done on March [address] Michael Ritter, who has evaluated him in his office on 03/27/2023. The patient states that he has been feeling poorly ever since the intervention had been done. Yesterday, he called our office stating that he is feeling more and more short of breath and Dr. Ritter asked him to come to see him in the office. The patient decided to come to hospital from where he had been admitted. I am evaluating the patient this morning, he appears comfortable at rest, not in distress. He states that he is short of breath with activity. He does not have any chest pain or leg edema. He is being treated with intravenous diuretics and he developed renal insufficiency following the recent intervention. His baseline creatinine was 1.1, today it is 1.7. His BUN is 41 and baseline BUN was 22. His troponins are in the randolph zone at 0.6, 0.6, and 0.5, not suggestive of myocardial infarction. The BNP is elevated at 4550 suggestive of congestive heart failure. The patient's clinical presentation is consistent with acute- onset systolic heart failure secondary to recent myocardial infarction in the dayana- angioplasty setting. PAST MEDICAL HISTORY: Significant for multivessel coronary artery disease, status post multivessel angioplasty, cardiomyopathy, hypertension, and dyslipidemia. MEDICATIONS: Medications at home include: 1. Aspirin. 2. Lipitor. 3. Coreg. 4. Lasix. 5. Lowman. 6. Losartan. 7. Flomax. 8. Terazosin. 9. Brilinta. ALLERGIES: No known drug allergies. FAMILY HISTORY: Negative for premature coronary artery disease. SOCIAL HISTORY: Negative for current smoking, EtOH abuse, or drug abuse. REVIEW OF SYSTEMS: HEENT: Unremarkable. CARDIAC: As described above. RESPIRATORY: As described above. GI: Negative. GENITOURINARY: Negative. ALLERGY/IMMUNOLOGY: Negative. SKIN: Negative. MUSCULOSKELETAL: Significant for arthritis. PSYCHOSOCIAL: Negative. DERM: Negative. CONSTITUTIONAL: Negative. ONCOLOGICAL: Negative. Rest of the system review is not relevant. PHYSICAL EXAMINATION: GENERAL: Comfortable at rest. VITAL SIGNS: Stable. O2 saturation is 96% on room air. NECK: There is no jugular venous distention. Carotid upstroke is normal. There is no bruit. CHEST: Reveals good air entry bilaterally. HEART: Reveals first and second heart sounds. Systolic murmur at the apex. ABDOMEN: Soft. EXTREMITIES: Reveals mild edema. Peripheral pulses are palpable. DIAGNOSTIC STUDIES: EKG shows sinus rhythm with left bundle branch block. A chest x-ray did not reveal any evidence of congestive heart failure. Venous duplex was negative for DVT. ASSESSMENT: 1. Acute-onset systolic heart failure. 2. Multivessel coronary artery disease, status post angioplasty. 3. Recent myocardial infarction in the post angioplasty setting. PLAN: I will treat the patient with intravenous diuretics. Continue rest of his medications. Obtain a 2D echo to re-evaluate the LV function. His baseline EF is 25% to 30%. The patient does not wish to go through any more invasive procedures. MMODL / IJN: [id number] /
[2023-04-05 12:29] LABS: Appearance,Urine Clear (Clear); Bilirubin,Urine Negative (Negative); Blood,Urine Negative (Negative); Color,Urine Colorless; Glucose,Urine (UA) Negative (Negative); Ketones,Urine Negative (Negative); Leukocyte Esterase,Urine Negative (Negative); Nitrite,Urine Negative (Negative); Protein,Urine Negative (Negative); Specific Gravity,Urine 1.009 (1.001-1.035); Urobilinogen,Urine <2.0 mg/dL (<2.0)
[2023-04-05] MEDS: SERTRALINE 25 MG TAB PO SCH (12:40)
--- NOTE | 2023-04-05 12:46 | CT ---
EXAMINATION TYPE: CT abdomen pelvis wo con DATE OF EXAM: 04/05/2023 COMPARISON: 10/30/2022 HISTORY: 82-year-old male left lower quadrant pain LLQ pain CT DLP: 658.9 mGycm. Automated exposure control for dose reduction was used. TECHNIQUE: Contiguous axial scanning of the abdomen and pelvis without IV contrast. Coronal and sagit fernando reconstructions performed. FINDINGS: Heart normal size without pericardial effusion. Extensive three-vessel coronary artery calcifications are present. Some strandy scarring or atelectasis in the lower lungs without pleural effusion. Lobulated cyst redemonstrated left hepatic dome measuring up to 5.6 cm. Smaller cyst right liver lobe is redemonstrated measuring 1.3 cm. Gallbladder mildly hydropic at 5.1 cm wide probably related to fasting state. No surrounding inflamma tion by CT. Adrenal glands, spleen, and atrophic pancreas show no gross abnormality. Retroaortic left renal vein. Similar mild bilateral perinephric edema which could be chronic for the patient. A few bilateral agbbi l cortical cysts measuring up to 2.6 cm on the left. No nephrolithiasis or hydronephrosis seen. Moderate atherosclerotic calcifications abdominal aorta and common iliac arteries. There is mild fusi form aneurysm of the mid abdominal aorta up to 3.2 cm. Normal appendix. There is moderate stool burden. Oral contrast progressed into the cecum. Extensive sigmoid diverticulosis. Mild wall thickening and minimal pericolonic hazy density proximal sigmoid colon, axial image 74. Bladder urine distended. Prostate gland is enlarged at 5.9 cm wide. Left-sided pelvic phlebolith. No abnormal fluid collection in the pelvis or pelvic lymphadenopathy. Both colon moderate degenerative change of the hips. Moderate to advanced multilevel spondylotic change in the visualized spine. IMPRESSION: 1. Extensive sigmoid diverticulosis. There is some associated mild wall thickening. Additionally, th ere is minimal pericolonic hazy density along the proximal sigmoid colon. Correlate for possible mild acute diverticulitis. No abscess or free air. 2. Extensive three-vessel coronary artery calcifications. Midabdominal AAA at 3.2 cm. Moderate stool burden. Prostatomegaly of 5.9 cm wide.
[2023-04-05] MEDS ORDERED: AMOXIC-POT CLAV 875-125MG 1 EACH TAB PO SCH (13:00)
--- NOTE | 2023-04-05 14:16 | P.GSCN ---
History of Present Illness Consult date: 04/05/23 History of present illness: CHIEF COMPLAINT: Shortness of breath HISTORY OF PRESENT ILLNESS: This is a 82-year-old male who presented to the hospital with complaints of weakness and worsening shortness of breath. He is being treated for an acute CHF exacerbation as on IV Lasix. Patient has a history of coronary disease with recent cardiac stenting 2 weeks ago. He is on Brilenta. He has known EF of 25-30%. Patient has computed tomography scan of abdomen and pelvis completed due to left lower quadrant abdominal pain. Report states extensive sigmoid diverticulosis. There is some associated mild wall thickening. There is a minimal pericolonic hazy density along the proximal sigmoid colon. Correlate for possible mild acute diverticulitis. No abscess or free air. Patient has had no other prior episodes of diverticulitis. Last colonoscopy was over 10 years ago and he reports having colon polyps. He denies any blood in his stools. His stools of been mostly loose. He denies any nausea or vomiting. He reports that his abdominal pain has been present for about one week. He was able to tolerate regular diet today with no increase in abdominal pain. PAST MEDICAL HISTORY: Coronary Artery Disease (CAD), Heart Failure, CVA/TIA, GERD/Reflux, Hyper lipidemia, Hypertension, Myocardial Infarction (HI), Musculoskeletal Disorder, Osteoarthritis (OA), Prostate Disorder, Skin Disorder, Thyroid Disorder. Lumbar disc disease, HERNIATED DISC IN BACK. Diverticular disease with diverticulosis, BPH, HI X2, unknown dates. lft leg weakness post cva (NO ASSISTED DEVICES). SHINGLES IN LEFT EYE. PAST SURGICAL HISTORY: Adenoidectomy, Heart Catheterization With Stent, Joint Replacement, Tonsillectomy, carotid stents in 2022 MEDICATIONS: See below ALLERGIES: See below SOCIAL HISTORY: No illicit drug use. REVIEW OF SYSTEMS: CONSTITUTIONAL: Denies fever or chills. HEENT: Denies blurred vision, vision changes, or eye pain. Denies hemoptysis CARDIOVASCULAR: Denies chest pain or pressure. RESPIRATORY: No shortness of breath. GASTROINTESTINAL: See HPI for pertinent findings HEMATOLOGIC: Denies bleeding disorders. GENITOURINARY: Denies any blood in urine or increased urinary frequency. SKIN: Denies pruitis. Denies rash. PHYSICAL EXAM: VITAL SIGNS: Reviewed GENERAL: Well-developed in no acute distress. ABDOMEN: Soft. Nondistended. Mild tenderness with palpation of left lower quadrant and suprapubic area NEUROLOGIC: Alert and oriented. Cranial nerves II through XII grossly intact. LABORATORY DATA: WBC is 7.7 Hgb 10.5 platelets 245 INR 1.0 Sodium 134 potassium 3.5 creatinine 1.74 Troponins elevated 3 BNP 4550 Urinalysis negative IMAGING: Computed tomography scan abdomen and pelvis extensive sigmoid diverticulosis. There is some associated mild wall thickening. Additionally there is a minimally pericolonic hazy density along the proximal sigmoid colon. Correlate for possible mild acute diverticulitis. No abscess or free air. Extensive 3 vessel coronary artery calcifications. Mid abdominal aortic aneurysm at 3.2 cm. Moderate stool burden. Prostamegaly 5.97 m wide. ASSESSMENT: 1. Mild acute sigmoid diverticulitis PLAN: -Start IV antibiotics -Continue regular diet for now -Recommend repeat computed tomography scan abdomen and pelvis if patient has symptomatic changes Thank you for this consultation Physician Technical Support Assistant note has been reviewed by physician. Signing provider agrees with the documented findings, assessment, and plan of care. Past Medical History Past Medical History: Coronary Artery Disease (CAD), Heart Failure, CVA/TIA, GERD/Reflux, Hyperlipidemia, Hypertension, Myocardial Infarction (HI), Musculoskeletal Disorder, Osteoarthritis (OA), Prostate Disorder, Skin Disorder, Thyroid Disorder Additional Past Medical History / Comment(s): Lumbar disc disease, HERNIATED DISC IN BACK. Diverticular disease with diverticulosis, BPH, HI X2, unknown dates. lft leg weakness post cva (NO ASSISTED DEVICES). SHINGLES IN LEFT EYE. 03/19 cardiac stents Last Myocardial Infarction Date:: UNK History of Any Multi-Drug Resistant Organisms: None Reported Past Surgical History: Adenoidectomy, Heart Catheterization With Stent, Joint Replacement, Tonsillectomy Additional Past Surgical History / Comment(s): Chato KNEE REPLACMENT. Colonoscopy with polypectomy, epidural steroid injections. carotid stents-23 Past Anesthesia/Blood Transfusion Reactions: No Reported Reaction Date of Last Stent Placement:: UNK Past Psychological History: No Psychological Hx Reported Smoking Status: Former smoker Past Alcohol Use History: Rare Additional Past Alcohol Use History / Comment(s): Quit smoking in 1966. Past Drug Use History: None Reported - Past Family History Sister(s) Family Medical History: Cancer Additional Family Medical History / Comment(s): Pancreatic cancer. Father History Unknown: Yes Family Medical History: Cancer Mother History Unknown: Yes Family Medical History: Congestive Heart Failure (CHF) Additional Family Medical History / Comment(s): AT AGE 94. Medications and Allergies Home Medications Medication Instructions Recorded Confirmed Type Terazosin HCl 5 mg PO HS 06/02/15 04/04/23 History Nitroglycerin Sl Tabs [Nitrostat] 0.4 mg SUBLINGUAL Q5M PRN #25 tab 06/04/15 04/04/23 Rx Tamsulosin [Flomax] 0.4 mg PO HS 03/20/20 04/04/23 History Furosemide [Lasix] 40 mg PO BID@0700,1400 11/12/22 04/04/23 History HYDROcodone/APAP 7.5-325MG [[place] 1 tab PO Q8H PRN 11/12/22 04/04/23 History 7.5-325] Atorvastatin [Lipitor] 40 mg PO HS #30 tab 11/21/22 04/04/23 Rx Aspirin 81 mg PO DAILY tab 03/22/23 04/04/23 Rx Losartan [Cozaar] 50 mg PO HS #90 tab 03/22/23 04/04/23 Rx Ticagrelor [Brilinta] 90 mg PO BID #180 tab 03/22/23 04/04/23 Rx carvediloL [Coreg*] 12.5 mg PO BID-W/MEALS #180 tab 03/22/23 04/04/23 Rx Allergies Allergy/AdvReac Type Severity Reaction Status Date / Time No Known Allergies Allergy Verified 04/04/23 15:58 Surgical - Exam Vital Signs Temp Pulse Resp BP Pulse Ox 98.4 F 71 418 H 111/65 100 04/04/23 11:34 04/04/23 11:34 04/04/23 11:34 04/04/23 11:34 04/04/23 11:34 Results - Labs 04/04/23 12:12 04/04/23 12:12 Abnormal Lab Results - Last 24 Hours (Table) 04/04/23 04/04/23 04/04/23 Range/Units 17:11 17:11 20:44 Troponin I 0.615 H* 0.528 H* (0.000-0.034) ng/mL HDL Cholesterol 24.90 L (40.00-60.00) mg/dL Diabetes panel 04/04/23 Range/Units 17:11 Triglycerides 133.00 (0.00-149.00) mg/dL HDL Cholesterol 24.90 L (40.00-60.00) mg/dL
[2023-04-05 14:28] VITALS: BMI 26.5
[2023-04-05] MEDS: PIPERACILLIN-TAZOBACTAM 3.375 GM in SODIUM CHLORIDE 0.9% 100 ML IVPB SCH ×2 (16:00→23:04)
[2023-04-05] MEDS: carvediloL 12.5 MG TAB PO SCH (16:56)
[2023-04-05] MEDS: DOXAZOSIN 4 MG TAB PO SCH (19:38)
[2023-04-05] MEDS: MELATONIN 5 MG TABLET PO PRN (19:38)
[2023-04-05] MEDS: ATORVASTATIN 40 MG TAB PO SCH (19:38)
[2023-04-05] MEDS: TAMSULOSIN 0.4 MG CAP.ER.24H PO SCH (19:38)
[2023-04-05] MEDS ORDERED: LOSARTAN 50 MG TAB PO SCH (21:00)
[2023-04-06] MEDS: carvediloL 12.5 MG TAB PO SCH ×2 (06:20→16:38)
[2023-04-06] MEDS: PIPERACILLIN-TAZOBACTAM 3.375 GM in SODIUM CHLORIDE 0.9% 100 ML IVPB SCH ×3 (07:44→23:36)
[2023-04-06] MEDS: SERTRALINE 25 MG TAB PO SCH (07:45)
[2023-04-06] MEDS: FUROSEMIDE 10 MG/ML 4 ML VIAL IV SCH (07:45)
[2023-04-06] MEDS: TICAGRELOR 90 MG TAB PO SCH ×2 (07:45→19:49)
[2023-04-06] MEDS: ASPIRIN 81 MG PO SCH (07:45)
--- NOTE | 2023-04-06 09:30 | P.PN ---
Subjective Progress Note Date: 04/06/23 History of present illness: This is an 82-year-old male with past medical history of Patient states that shortness of breath is improved. His nurse is concerned that he has shortness of breath and fatigue since he had stents done. His lower extremity edema has resolved. His blood pressure 129/63, heart rate 60 and 70s, he's been afebrile pulse ox 97% on room air. Telemetry is sinus rhythm Patient's been maintained on Lasix 40 mg every 8 hours. His home dose is Lasix 40 mg twice daily. Patient's main concern is abdominal discomfort. He is hoping to go home today. Physical examination: Gen: This is a [ ] VS: reviewed HEENT: Head is atraumatic, normocephalic. Pupils equal, round. Sclerae is anicteric. NECK: Supple. No JVD. . LUNGS: Clear to auscultation. No wheezes or rhonchi. No intercostal retractions. HEART: Regular rate and rhythm. No murmur. ABDOMEN: Soft No tenderness. EXTREMITIES: No pedal edema. No calf tenderness. NEUROLOGICAL: Patient is awake, alert and oriented x3. Assessment: [ ] Plan: Continue current cardiac medications Transition IV Lasix to oral 40 mg twice daily At the time of discharge, patient will follow up with his primary honing machine operator in 1-2 weeks. Nurse practitioner note has been reviewed, I agree with documented findings and plan of care. Patient was seen and examined. Objective - Vital Signs Vital signs: Vital Signs Temp 97.3 F L 04/06/23 07:43 Pulse 67 04/06/23 07:43 Resp 18 04/06/23 07:43 BP 129/63 04/06/23 07:43 Pulse Ox 97 04/06/23 07:43 FiO2 Intake & Output 04/05/23 04/06/23 04/06/23 18:59 06:59 18:59 Intake Total 350 5 Balance 350 5 Weight 83.915 kg 83.8 kg Intake: IV 10 5 Invasive Line 1 10 5 Intake, IV Titration 100 Amount Piperacillin-Tazobactam 3 100 .375 gm In Sodium Chloride 0.9% 100 ml @ 25 mls/hr IVPB Q8HR [facility] Rx# :[id number] Oral 240 Other: Voiding Method Toilet Toilet # Voids 1 1 - Labs CBC & Chem 7: 04/04/23 12:12 04/04/23 12:12
--- NOTE | 2023-04-06 09:34 | P.PN ---
Subjective This is a pleasant 52 years old male with past medical history of chronic Heart Failure, CVA/TIA, GERD/Reflux, Hyperlipidemia, Hypertension, coronary artery disease status post stent,Osteoarthritis , BPH, hypothyroidism pt has Multivessel coronary artery disease, CVS team found the pt is not a good surgical candidate , instead he got pci to LAD AND Diagonal branch on 03/22 Since the procedure patient has been feeling generally weak and some short of breath, he called his automation consultant office dr rodriguez yesterday who advised him to come to the hospital pt is lying in bed generally weak, with malaise. Mildly tachypneic no orthopnea, no paroxysmal nocturnal dyspnea. Patient denies chest pain or discomfort. Patient says that his symptoms been going on since his been discharged from the hospital about 2 weeks ago, denies worsening dyspnea. Also he complains from lower abdominal cramps, 12/03. Low appetite with occasional nausea especially prandial nausea. He has also loses stool once every other day and he wanted 1 yesterday. No vomiting. No dysuria Vitals are stable Patient has unremarkable CBC, INR. Creatinine 1.7 ProBNP is elevated 4550 Troponin elevated 0.062 and 0.5 Rest of BMP is unremarkable. Liver enzymes not elevated. LDL is 61 EKG showing normal sinus rhythm at [address]-T changes, left bundle branch block Chest x-ray: 1. No acute cardiopulmonary disease process. 2. COPD changes. I reviewed chest x-ray and agree with these findings Duplex ultrasound: Negative for DVT. Patient was started on IV Lasix 40 mg every 8 hours 04/06/2023 Patient feels better today He says his breathing is better No abdominal pain or left lower quadrant tenderness He still has loose bowel movements, had 3 yesterday, suspicion of significant flow but we will check this anyway. He eats well. (Table. Labs pending Currently on IV Lasix 40 mg every 8 hours and Zosyn. Also aspirin and brillinta Objective - Vital Signs Vital signs: Vital Signs Temp 97.3 F L 04/06/23 07:43 Pulse 67 04/06/23 07:43 Resp 18 04/06/23 07:43 BP 129/63 04/06/23 07:43 Pulse Ox 97 04/06/23 07:43 FiO2 Intake & Output 04/05/23 04/06/23 04/06/23 18:59 06:59 18:59 Intake Total 350 123 Balance 350 123 Weight 83.915 kg 83.8 kg Intake: IV 10 5 Invasive Line 1 10 5 Intake, IV Titration 100 Amount Piperacillin-Tazobactam 3 100 .375 gm In Sodium Chloride 0.9% 100 ml @ 25 mls/hr IVPB Q8HR [facility] Rx# :[id number] Oral 240 118 Other: Voiding Method Toilet Toilet # Voids 1 1 - Exam GENERAL: The patient is alert and oriented x3, not in any acute distress. Well developed, well nourished. HEENT: Pupils are round and equally reacting to light. EOMI. No scleral icterus. No conjunctival pallor. Normocephalic, atraumatic. No pharyngeal erythema. No thyromegaly. CARDIOVASCULAR: S1 and S2 present. No murmurs, rubs, or gallops. PULMONARY: Chest is clear to auscultation, no wheezing , no crackles. ABDOMEN: Soft, nontender, nondistended, normoactive bowel sounds. No palpable organomegaly. MUSCULOSKELETAL: No joint swelling or deformity. EXTREMITIES: No cyanosis, clubbing, or pedal edema. NEUROLOGICAL: Gross neurological examination did not reveal any focal deficits. SKIN: No rashes. no petechiae. - Labs CBC & Chem 7: 04/04/23 12:12 04/04/23 12:12 Assessment and Plan Assessment: Generalized weakness Left lower quadrant abdominal pain and tenderness secondary to acute diverticulitis Ischemic cardiomyopathy with congestive heart failure, ejection fraction 25-30% Acute kidney injury Multivessel coronary artery disease, surgical candidate status post pci to LAD AND Diagonal branch on 03/22 Elevated troponin most likely secondary to CHF and renal disease History of CVA and left hemiparesis, improved Internal carotid artery stenosis status post right carotid artery stenting Hypertension Hyperlipidemia History of coronary artery disease status post stent History of osteoarthritis BPH Hypothyroidism Plan: Continue Zosyn c diff, felt less likely hold losartan for jorge c/w aspirin and brilinta Cardiology consult Labs and medication were reviewed.. Continue same treatment. Continue with symptomatic treatment. Resume home medication. Monitor labs and vitals. DVT and GI prophylaxis. Further recommendations as per clinical course of the patient DVT prophylaxis: Subcutaneous heparin GI Prophylaxis: Pepcid PT/OT: Pending Prognosis is guarded
--- NOTE | 2023-04-06 10:04 | P.PN ---
Subjective Progress Note Date: 04/06/23 History of present illness: This is an 82-year-old male with past medical history of ischemic cardiomyopat hy, multivessel coronary artery disease status post injury plasty of the right coronary artery and circumflex coronary artery recently underwent cardiac catheterization found to have significant disease involving LAD and diagonal and moderate disease in circumflex was evaluated by surgery thought not to be a good surgical candidate and underwent angioplasty of the LAD and diagonal. It was a very complicated intervention with transient occlusion of the vessels during intervention and NE interval intervention myocardial infarction. Procedure was performed on March [address] Maria. Patient was evaluated in the office on 03/27. Patient has been feeling poorly with fatigue and shortness of breath since procedure was done. He was having more shortness of breath and he was sent in from the office to hospital for further evaluation. Patient was started on heart failure treatment and Lasix 40 mg every 8 hours. At this time, patient states his shortness of breath is resolved. No lower extremity edema. He does have abdominal discomfort and seen by general surgery for sigmoid diverticulitis found on CAT scan. His blood pressure 129/63, heart rate 60 and 70s, he's been afebrile pulse ox 97% on room air. Telemetry is sinus rhythm Patient's been maintained on Lasix 40 mg every 8 hours. His home dose is Lasix 40 mg twice daily. Patient's main concern is abdominal discomfort. He is hoping to go home today. Physical examination: Gen: This is an 82-year-old male. He is resting on the edge of the bed and appears comfortable and in no acute distress VS: reviewed HEENT: Head is atraumatic, normocephalic. Pupils equal, round. Sclerae is anicteric. NECK: Supple. No JVD. . LUNGS: Clear to auscultation. No wheezes or rhonchi. No intercostal retractions. HEART: Regular rate and rhythm. Systolic murmur. ABDOMEN: Soft No tenderness. EXTREMITIES: No pedal edema. No calf tenderness. NEUROLOGICAL: Patient is awake, alert and oriented x3. Assessment: Acute systolic heart failure Multivessel coronary artery disease status post angioplasty Recent myocardial infarction in the post angioplasty stenting Ischemic cardiomyopathy with EF of 25-30% Diverticulitis Plan: Continue current cardiac medications Transition IV Lasix to oral 40 mg twice daily Patient is cleared for discharge from cardiology At the time of discharge, patient will follow up with Dr. RIK Ritter in 1-2 weeks. Nurse practitioner note has been reviewed, I agree with documented findings and plan of care. Patient was seen and examined. Objective - Vital Signs Vital signs: Vital Signs Temp 97.3 F L 04/06/23 07:43 Pulse 67 04/06/23 07:43 Resp 18 04/06/23 07:43 BP 129/63 04/06/23 07:43 Pulse Ox 97 04/06/23 07:43 FiO2 Intake & Output 04/05/23 04/06/23 04/06/23 18:59 06:59 18:59 Intake Total 350 123 Balance 350 123 Weight 83.915 kg 83.8 kg Intake: IV 10 5 Invasive Line 1 10 5 Intake, IV Titration 100 Amount Piperacillin-Tazobactam 3 100 .375 gm In Sodium Chloride 0.9% 100 ml @ 25 mls/hr IVPB Q8HR [facility] Rx# :[id number] Oral 240 118 Other: Voiding Method Toilet Toilet # Voids 1 1 - Labs CBC & Chem 7: 04/04/23 12:12 04/04/23 12:12
[2023-04-06 10:06] LABS: Basophils % (A) 0 %; Eosinophils # (A) 0.1 k/uL (0-0.7); Eosinophils % (A) 2 %; HCT 30.5 % (39.0-53.0); HGB 10.2 gm/dL (13.0-17.5); Lymphocytes # (A) 1.4 k/uL (1.0-4.8); Lymphocytes % (A) 20 %; MCH 29.9 pg (25.0-35.0); MCHC 33.5 g/dL (31.0-37.0); MCV 89.2 fL (80.0-100.0); Monocytes # (A) 0.3 k/uL (0-1.0); Monocytes % (A) 4 %; Neutrophils # (A) 5.1 k/uL (1.3-7.7); Neutrophils % (A) 73 %; Platelet Count 242 k/uL (150-450); RBC 3.42 m/uL (4.30-5.90); RDW 13.8 % (11.5-15.5)
[2023-04-06 10:19] LABS: African American GFR (CKD) 31 (>60 ml/min/1.73 sqM); Anion Gap 18 mmol/L; Blood Urea Nitrogen 43 mg/dL (9-20); Calcium 9.1 mg/dL (8.4-10.2); Carbon Dioxide 23 mmol/L (22-30); Chloride 94 mmol/L (98-107); Glucose 146 mg/dL (74-99); Non-African American GFR(CKD) 26 (>60 ml/min/1.73 sqM); Potassium 3.4 mmol/L (3.5-5.1); Sodium 135 mmol/L (137-145)
[2023-04-06] MEDS ORDERED: POTASSIUM CHLORIDE ER 10 MEQ TAB.ER.PRT PO STA (10:58)
--- NOTE | 2023-04-06 11:06 | P.PN ---
Subjective Progress Note Date: 04/06/23 Pain is better tolerating diet positive bowel movement okay for discharge from surgical perspective on antibiotics Objective - Vital Signs Vital signs: Vital Signs Temp 97.3 F L 04/06/23 07:43 Pulse 67 04/06/23 07:43 Resp 18 04/06/23 07:43 BP 129/63 04/06/23 07:43 Pulse Ox 97 04/06/23 07:43 FiO2 Intake & Output 04/05/23 04/06/23 04/06/23 18:59 06:59 18:59 Intake Total 350 123 Balance 350 123 Weight 83.915 kg 83.8 kg Intake: IV 10 5 Invasive Line 1 10 5 Intake, IV Titration 100 Amount Piperacillin-Tazobactam 3 100 .375 gm In Sodium Chloride 0.9% 100 ml @ 25 mls/hr IVPB Q8HR [facility] Rx# :[id number] Oral 240 118 Other: Voiding Method Toilet Toilet # Voids 1 1 - Constitutional General appearance: Present: no acute distress - EENT Eyes: Present: PERRLA ENT: Present: normal oropharynx Ears: bilateral: normal - Respiratory Respiratory: bilateral: CTA - Cardiovascular Rhythm: regular - Gastrointestinal General gastrointestinal: Present: normal bowel sounds, soft Localized gastrointestinal: tender: LLQ (Improved from yesterday according to patient) - Integumentary Integumentary: Present: normal - Neurologic Neurologic: Present: CNII-XII intact - Psychiatric Psychiatric: Present: appropriate affect - Labs CBC & Chem 7: 04/06/23 08:52 04/06/23 08:52 Labs: Abnormal Lab Results - Last 24 Hours (Table) 04/06/23 04/06/23 Range/Units 08:52 08:52 RBC 3.42 L (4.30-5.90) m/uL Hgb 10.2 L (13.0-17.5) gm/dL Hct 30.5 L (39.0-53.0) % Sodium 135 L (137-145) mmol/L Potassium 3.4 L (3.5-5.1) mmol/L Chloride 94 L (98-107) mmol/L BUN 43 H (9-20) mg/dL Creatinine 2.21 H (0.66-1.25) mg/dL Glucose 146 H (74-99) mg/dL Assessment and Plan Assessment: Improve diverticulitis Plan: Okay for diet and discharge per primary service with by mouth antibiotics
[2023-04-06] MEDS: HYDROcodone/APAP 7.5-325MG 1 EACH TAB PO PRN ×2 (14:57→22:17)
[2023-04-06] MEDS: FUROSEMIDE 40 MG TAB PO SCH (14:57)
[2023-04-06] MEDS: DOXAZOSIN 4 MG TAB PO SCH (19:49)
[2023-04-06] MEDS: ATORVASTATIN 40 MG TAB PO SCH (19:49)
[2023-04-06] MEDS: TAMSULOSIN 0.4 MG CAP.ER.24H PO SCH (19:49)
[2023-04-06] MEDS: MELATONIN 5 MG TABLET PO PRN (19:49)
[2023-04-07] MEDS: carvediloL 12.5 MG TAB PO SCH ×2 (06:18→11:41)
[2023-04-07] MEDS: FUROSEMIDE 40 MG TAB PO SCH (08:01)
[2023-04-07] MEDS: SERTRALINE 25 MG TAB PO SCH (08:01)
[2023-04-07] MEDS: ASPIRIN 81 MG PO SCH (08:01)
[2023-04-07] MEDS: TICAGRELOR 90 MG TAB PO SCH (08:01)
[2023-04-07] MEDS: PIPERACILLIN-TAZOBACTAM 3.375 GM in SODIUM CHLORIDE 0.9% 100 ML IVPB SCH ×2 (08:02→11:40)
[2023-04-07 08:50] LABS: African American GFR (CKD) 30 (>60 ml/min/1.73 sqM); Anion Gap 14 mmol/L; Blood Urea Nitrogen 41 mg/dL (9-20); Carbon Dioxide 25 mmol/L (22-30); Chloride 94 mmol/L (98-107); Glucose 179 mg/dL (74-99); Non-African American GFR(CKD) 26 (>60 ml/min/1.73 sqM); Potassium 3.2 mmol/L (3.5-5.1); Sodium 133 mmol/L (137-145)
[2023-04-07] MEDS ORDERED: Potassium Replacement Protocol 1 EACH MISC MISCELLANE PRN (09:06)
--- NOTE | 2023-04-07 09:10 | P.PN ---
Subjective This is a pleasant 52 years old male with past medical history of chronic Heart Failure, CVA/TIA, GERD/Reflux, Hyperlipidemia, Hypertension, coronary artery disease status post stent,Osteoarthritis , BPH, hypothyroidism pt has Multivessel coronary artery disease, CVS team found the pt is not a good surgical candidate , instead he got pci to LAD AND Diagonal branch on 03/22 Since the procedure patient has been feeling generally weak and some short of breath, he called his production counter office dr rodriguez yesterday who advised him to come to the hospital pt is lying in bed generally weak, with malaise. Mildly tachypneic no orthopnea, no paroxysmal nocturnal dyspnea. Patient denies chest pain or discomfort. Patient says that his symptoms been going on since his been discharged from the hospital about 2 weeks ago, denies worsening dyspnea. Also he complains from lower abdominal cramps, 12/03. Low appetite with occasional nausea especially prandial nausea. He has also loses stool once every other day and he wanted 1 yesterday. No vomiting. No dysuria Vitals are stable Patient has unremarkable CBC, INR. Creatinine 1.7 ProBNP is elevated 4550 Troponin elevated 0.062 and 0.5 Rest of BMP is unremarkable. Liver enzymes not elevated. LDL is 61 EKG showing normal sinus rhythm at [address]-T changes, left bundle branch block Chest x-ray: 1. No acute cardiopulmonary disease process. 2. COPD changes. I reviewed chest x-ray and agree with these findings Duplex ultrasound: Negative for DVT. Patient was started on IV Lasix 40 mg every 8 hours 04/06/2023 Patient feels better today He says his breathing is better No abdominal pain or left lower quadrant tenderness He still has loose bowel movements, had 3 yesterday, suspicion of significant flow but we will check this anyway. He eats well. (Table. Labs pending Currently on IV Lasix 40 mg every 8 hours and Zosyn. Also aspirin and brillinta 04/07/2023 Patient breathing is better and easy, No more abdominal pain or left lower quadrant tenderness, no bowel movement but he is eating well Is that area was stopped. Patient generally feels well and ask if he can be discharged. His creatinine is still elevated at 2.2 Discussed with staff to hold Lasix and consult nephrology service. Currently patient on oral Lasix 40 mg twice daily and Zosyn Objective - Vital Signs Vital signs: Vital Signs Temp 97.7 F 04/07/23 08:00 Pulse 68 04/07/23 08:00 Resp 18 04/07/23 08:00 BP 116/64 04/07/23 08:00 Pulse Ox 98 04/07/23 08:00 FiO2 Intake & Output 04/06/23 04/07/23 04/07/23 18:59 06:59 18:59 Intake Total 566 10 603 Balance 566 10 603 Intake: IV 10 10 5 Invasive Line 1 10 10 5 Intake, IV Titration 200 Amount Piperacillin-Tazobactam 3 200 .375 gm In Sodium Chloride 0.9% 100 ml @ 25 mls/hr IVPB Q8HR [facility] Rx# :[id number] Oral 356 598 Other: Voiding Method Toilet Toilet # Voids 2 1 # Bowel Movements 1 - Exam GENERAL: The patient is alert and oriented x3, not in any acute distress. Well developed, well nourished. HEENT: Pupils are round and equally reacting to light. EOMI. No scleral icterus. No conjunctival pallor. Normocephalic, atraumatic. No pharyngeal erythema. No thyromegaly. CARDIOVASCULAR: S1 and S2 present. No murmurs, rubs, or gallops. PULMONARY: Chest is clear to auscultation, no wheezing , no crackles. ABDOMEN: Soft, nontender, nondistended, normoactive bowel sounds. No palpable organomegaly. MUSCULOSKELETAL: No joint swelling or deformity. EXTREMITIES: No cyanosis, clubbing, or pedal edema. NEUROLOGICAL: Gross neurological examination did not reveal any focal deficits. SKIN: No rashes. no petechiae. - Labs CBC & Chem 7: 04/06/23 08:52 04/07/23 08:09 Labs: Abnormal Lab Results - Last 24 Hours (Table) 04/06/23 04/06/23 04/07/23 Range/Units 08:52 08:52 08:09 RBC 3.42 L (4.30-5.90) m/uL Hgb 10.2 L (13.0-17.5) gm/dL Hct 30.5 L (39.0-53.0) % Sodium 135 L 133 L (137-145) mmol/L Potassium 3.4 L 3.2 L (3.5-5.1) mmol/L Chloride 94 L 94 L (98-107) mmol/L BUN 43 H 41 H (9-20) mg/dL Creatinine 2.21 H 2.24 H (0.66-1.25) mg/dL Glucose 146 H 179 H (74-99) mg/dL Assessment and Plan Assessment: Generalized weakness Left lower quadrant abdominal pain and tenderness secondary to acute diverticu litis Ischemic cardiomyopathy with congestive heart failure, ejection fraction 25-30% Acute kidney injury Multivessel coronary artery disease, surgical candidate status post pci to LAD AND Diagonal branch on 03/22 Elevated troponin most likely secondary to CHF and renal disease History of CVA and left hemiparesis, improved Internal carotid artery stenosis status post right carotid artery stenting Hypertension Hyperlipidemia History of coronary artery disease status post stent History of osteoarthritis BPH Hypothyroidism Plan: Continue Zosyn hold losartan for jorge Nephrology consult c/w aspirin and brilinta Cardiology consult will place patient on oral Lasix 40 mg twice daily Labs and medication were reviewed.. Continue same treatment. Continue with symptomatic treatment. Resume home medication. Monitor labs and vitals. DVT and GI prophylaxis. Further recommendations as per clinical course of the patient DVT prophylaxis: Subcutaneous heparin GI Prophylaxis: Pepcid PT/OT: Pending Prognosis is guarded
--- NOTE | 2023-04-07 09:37 | P.PN ---
Subjective Progress Note Date: 04/07/23 History of present illness: This is an 82-year-old male with past medical history of ischemic cardiomyopat hy, multivessel coronary artery disease status post injury plasty of the right coronary artery and circumflex coronary artery recently underwent cardiac catheterization found to have significant disease involving LAD and diagonal and moderate disease in circumflex was evaluated by surgery thought not to be a good surgical candidate and underwent angioplasty of the LAD and diagonal. It was a very complicated intervention with transient occlusion of the vessels during intervention and HI interval intervention myocardial infarction. Procedure was performed on March [address] Maria. Patient was evaluated in the office on 03/27. Patient has been feeling poorly with fatigue and shortness of breath since procedure was done. He was having more shortness of breath and he was sent in from the office to hospital for further evaluation. Patient was started on heart failure treatment and Lasix 40 mg every 8 hours. At this time, patient states his shortness of breath is resolved. No lower extremity edema. He does have abdominal discomfort and seen by general surgery for sigmoid diverticulitis found on CAT scan. His blood pressure 129/63, heart rate 60 and 70s, he's been afebrile pulse ox 97% on room air. Telemetry is sinus rhythm Patient's been maintained on Lasix 40 mg every 8 hours. His home dose is Lasix 40 mg twice daily. Patient's main concern is abdominal discomfort. He is hoping to go home today. 04/07 Patient was cleared for discharge from cardiology yesterday but his discharge was held when his blood work came back he had a BUN of 43 creatinine 2.21 and potassium 3.4. Repeat blood work this morning is potassium 3.2, BUN 41 and creatinine 2.24. Patient denies any new concerns today. No chest pain, no lightheadedness or dizziness, no palpitations, no shortness of breath. Yesterday, IV Lasix was transitioned to oral 40 mg twice daily. Physical examination: Gen: This is an 82-year-old male. He is resting on the edge of the bed and appears comfortable and in no acute distress VS: reviewed HEENT: Head is atraumatic, normocephalic. Pupils equal, round. Sclerae is anicteric. NECK: Supple. No JVD. . LUNGS: Clear to auscultation. No wheezes or rhonchi. No intercostal retractions. HEART: Regular rate and rhythm. Systolic murmur. ABDOMEN: Soft No tenderness. EXTREMITIES: No pedal edema. No calf tenderness. NEUROLOGICAL: Patient is awake, alert and oriented x3. Assessment: Acute systolic heart failure Multivessel coronary artery disease status post angioplasty Recent myocardial infarction in the post angioplasty stenting Ischemic cardiomyopathy with EF of 25-30% Diverticulitis Plan: Continue current cardiac medications Continue Lasix oral 40 mg twice daily Patient is cleared for discharge from cardiology At the time of discharge, patient will follow up with Dr. RIK Ritter in 1-2 weeks. Nurse practitioner note has been reviewed, I agree with documented findings and plan of care. Patient was seen and examined. Objective - Vital Signs Vital signs: Vital Signs Temp 97.9 F 04/07/23 04:00 Pulse 75 04/07/23 04:00 Resp 16 04/07/23 04:00 BP 117/75 04/07/23 04:00 Pulse Ox 96 04/07/23 04:00 FiO2 Intake & Output 04/06/23 04/07/23 04/07/23 18:59 06:59 18:59 Intake Total 566 10 5 Balance 566 10 5 Intake: IV 10 10 5 Invasive Line 1 10 10 5 Intake, IV Titration 200 Amount Piperacillin-Tazobactam 3 200 .375 gm In Sodium Chloride 0.9% 100 ml @ 25 mls/hr IVPB Q8HR [facility] Rx# :[id number] Oral 356 Other: Voiding Method Toilet # Voids 2 1 # Bowel Movements 1 - Labs CBC & Chem 7: 04/06/23 08:52 04/07/23 08:09 Labs: Abnormal Lab Results - Last 24 Hours (Table) 04/06/23 04/06/23 Range/Units 08:52 08:52 RBC 3.42 L (4.30-5.90) m/uL Hgb 10.2 L (13.0-17.5) gm/dL Hct 30.5 L (39.0-53.0) % Sodium 135 L (137-145) mmol/L Potassium 3.4 L (3.5-5.1) mmol/L Chloride 94 L (98-107) mmol/L BUN 43 H (9-20) mg/dL Creatinine 2.21 H (0.66-1.25) mg/dL Glucose 146 H (74-99) mg/dL
--- NOTE | 2023-04-07 10:37 | P.NPCON ---
History of Present Illness - Reason for Consult acute renal failure - History of Present Illness Patient is an 82-year-old male with history of hypertension, coronary artery disease, CHF, CVA who was admitted to the hospital with complaints of shortness of breath and increased weakness. Patient stated that he had increased leg swelling as well. Patient has been diuresed for CHF exacerbation and volume overload. Patient states he is feeling better. He is currently voiding on his own. Blood pressure is borderline low with systolic at 10 8 mmHg. Serum creatinine 1.7 on admission and increased to 2.2 for today. Previous creatinine 1.1 on 03/22/2023. Patient was on losartan which was discontinued ye . Lasix has been switched to oral. CT abdomen does not show any evidence of obstruction. UA is completely benign. Review of Systems As per HPI Past Medical History Past Medical History: Coronary Artery Disease (CAD), Heart Failure, CVA/TIA, GERD/Reflux, Hyperlipidemia, Hypertension, Myocardial Infarction ([place]), Musculoskeletal Disorder, Osteoarthritis (OA), Prostate Disorder, Skin Disorder, Thyroid Disorder Additional Past Medical History / Comment(s): Lumbar disc disease, HERNIATED DISC IN BACK. Diverticular disease with diverticulosis, BPH, [place] X2, unknown dates. lft leg weakness post cva (NO ASSISTED DEVICES). SHINGLES IN LEFT EYE. 03/19 cardiac stents Last Myocardial Infarction Date:: UNK History of Any Multi-Drug Resistant Organisms: None Reported Past Surgical History: Adenoidectomy, Heart Catheterization With Stent, Joint Replacement, Tonsillectomy Additional Past Surgical History / Comment(s): Chato KNEE REPLACMENT. Colonoscopy with polypectomy, epidural steroid injections. carotid stents-23 Past Anesthesia/Blood Transfusion Reactions: No Reported Reaction Date of Last Stent Placement:: UNK Past Psychological History: No Psychological Hx Reported Smoking Status: Former smoker Past Alcohol Use History: Rare Additional Past Alcohol Use History / Comment(s): Quit smoking in 1966. Past Drug Use History: None Reported - Past Family History Sister(s) Family Medical History: Cancer Additional Family Medical History / Comment(s): Pancreatic cancer. Father History Unknown: Yes Family Medical History: Cancer Mother History Unknown: Yes Family Medical History: Congestive Heart Failure (CHF) Additional Family Medical History / Comment(s): AT AGE 94. Medications and Allergies Home Medications Medication Instructions Recorded Confirmed Type Terazosin HCl 5 mg PO HS 06/02/15 04/04/23 History Nitroglycerin Sl Tabs [Nitrostat] 0.4 mg SUBLINGUAL Q5M PRN #25 tab 06/04/15 04/04/23 Rx Tamsulosin [Flomax] 0.4 mg PO HS 03/20/20 04/04/23 History Furosemide [Lasix] 40 mg PO BID@0700,1400 11/12/22 04/04/23 History HYDROcodone/APAP 7.5-325MG [[place] 1 tab PO Q8H PRN 11/12/22 04/04/23 History 7.5-325] Atorvastatin [Lipitor] 40 mg PO HS #30 tab 11/21/22 04/04/23 Rx Aspirin 81 mg PO DAILY tab 03/22/23 04/04/23 Rx Losartan [Cozaar] 50 mg PO HS #90 tab 03/22/23 04/04/23 Rx Ticagrelor [Brilinta] 90 mg PO BID #180 tab 03/22/23 04/04/23 Rx carvediloL [Coreg*] 12.5 mg PO BID-W/MEALS #180 tab 03/22/23 04/04/23 Rx Allergies Allergy/AdvReac Type Severity Reaction Status Date / Time No Known Allergies Allergy Verified 04/04/23 15:58 Physical Exam Vitals: Vital Signs Temp Pulse Resp BP Pulse Ox 04/07/23 08:00 97.7 F 68 18 116/64 98 04/07/23 04:00 97.9 F 75 16 117/75 96 04/07/23 00:00 98.0 F 63 16 108/63 94 L 04/06/23 19:55 98.2 F 71 16 119/74 95 04/06/23 15:17 72 16 142/94 96 04/06/23 12:02 70 16 147/77 97 Intake and Output 04/06/23 04/07/23 04/07/23 22:59 06:59 14:59 Intake Total 123 5 603 Balance 123 5 603 Intake: IV 5 5 5 Invasive Line 1 5 5 5 Oral 118 598 Other: Voiding Method Toilet # Voids 1 Patient is comfortable awake. Not in any acute distress Examination of the heart S1 and S2 Examination of the lungs bilateral breath sounds are heard Abdomen is soft nontender Examination of the lower extremity shows no evidence of edema [employer] exam grossly intact Results - Lab Results Most recent lab results Calcium 9.0 mg/dL (8.4-10.2) 04/07/23 08:09 04/06/23 08:52 04/07/23 08:09 Assessment and Plan Assessment: 1. Acute kidney injury associated with recent diuresis. Rule out urine retention. UA is completely benign. No evidence of obstruction noted on CAT scan. 2. Coronary artery disease with significant disease and not a candidate for surgical intervention. 3. Ischemic cardiomyopathy with EF of 25-30% 4. History of CVA 5. Hypertension, currently controlled and off of losartan Plan: Check post void residual Continue to hold losartan Repeat labs in a.m. Decrease Lasix to once a day. Thank you for the consultation. We will continue to follow the patient with you during his hospitalization.
[2023-04-07] MEDS ORDERED: POTASSIUM CHLORIDE ER 20 MEQ TAB.ER PO STA (10:59)
[2023-04-07 11:45] VITALS: BP 128/84; PULSE 69; RESP 16; TEMP 97.6
--- NOTE | 2023-04-07 20:32 | P.DS ---
Providers Date of admission: 04/04/23 15:02 Attending physician: Tiff Stephens Consults: 04/04/23 16:21 Consult Physician Stat Consulting Provider: [facility] Consult Reason/Comments: CHF exacerbation, chest pain, recent stents Do you want consulting provider notified?: Yes 04/05/23 12:47 Consult Physician Routine Consulting Provider: Lc Saldaña Consult Reason/Comments: diverticulsis and colitis Do you want consulting provider notified?: Yes 04/06/23 10:57 Consult Physician Routine Consulting Provider: Juju Doty Consult Reason/Comments: jorge Do you want consulting provider notified?: Yes Primary care physician: [facility] Course: This clinically stable. Since morning patient's wanting to leave, please back to his normal baseline. He is completely asymptomatic and this morning. He is breathing quietly with no dyspnea chest pain or coughing. Abdomen soft no tenderness no pain. no Diarrhea, or urinary complaints. We kept him in the morning because of elevated creatinine. Repeat creatinine this morning shows stable level 2.21 And 2.24. We checked Urine analysis and is completely benign and normal. We checked a bladder scan and there is no urinary retention, resolved just above 100 mL the case with steel rigger Dr. Doty who cleared him for discharge today with recommendation for close outpatient follow- up. Cardiology team or the posterior the patient this morning. Surgery team also cleared the patient to be discharged on oral antibiotic. I checked on the patient in the afternoon he remains clinically stable. at bedside and all questions were answered to the patient and . Both and agree for patient to go home today and follow up closely as an outpatient as instructed below. Patient was cleared for discharge by all consultants as above Problems and management plan were discussed with the patient and he verbalized understanding and acceptance Patient was found stable and can be discharged home in guarded prognosis however he needs follow-up as an outpatient. Patient was instructed to follow up with PCP Dr. Zuniga within one week and patient agrees Patient was instructed to follow up with steel rigger Dr. Doty in one week, forestry laborer Dr. Ritter in 1-[address] Alanis in 1-2 weeks and both patient and agreed to call and make appointment as today is weakened. Also patient was instructed to check labs in 2-3 days with his PCP and he is agreeable. written instructions provided (( Please refer to progress note from today for more details)) Time spent more than 35 minutes Patient Condition at Discharge: Fair Plan - Discharge Summary Discharge Rx Participant: No New Discharge Prescriptions: New Amoxic-Pot Clav 500-125 mg [Augmentin 500-125 mg] 1 tab PO Q12HR 7 Days #14 tab Furosemide [Lasix] 40 mg PO DAILY 30 Days #30 tab Sertraline [Zoloft] 25 mg PO DAILY 30 Days #30 tab Continue Terazosin HCl 5 mg PO HS Nitroglycerin Sl Tabs [Nitrostat] 0.4 mg SUBLINGUAL Q5M PRN #25 tab PRN Reason: Chest Pain Tamsulosin [Flomax] 0.4 mg PO HS Aspirin 81 mg PO DAILY tab Ticagrelor [Brilinta] 90 mg PO BID #180 tab carvediloL [Coreg*] 12.5 mg PO BID-W/MEALS #180 tab Atorvastatin [Lipitor] 40 mg PO HS #30 tab Discontinued HYDROcodone/APAP 7.5-325MG [[place] 7.5-325] 1 tab PO Q8H PRN PRN Reason: Pain Furosemide [Lasix] 40 mg PO BID@0700,1400 Losartan [Cozaar] 50 mg PO HS #90 tab Discharge Medication List Terazosin HCl 5 mg PO HS 06/02/15 [History] Nitroglycerin Sl Tabs [Nitrostat] 0.4 mg SUBLINGUAL Q5M PRN #25 tab 06/04/15 [Rx] Tamsulosin [Flomax] 0.4 mg PO HS 03/20/20 [History] Atorvastatin [Lipitor] 40 mg PO HS #30 tab 11/21/22 [Rx] Aspirin 81 mg PO DAILY tab 03/22/23 [Rx] Ticagrelor [Brilinta] 90 mg PO BID #180 tab 03/22/23 [Rx] carvediloL [Coreg*] 12.5 mg PO BID-W/MEALS #180 tab 03/22/23 [Rx] Amoxic-Pot Clav 500-125 mg [Augmentin 500-125 mg] 1 tab PO Q12HR 7 Days #14 tab 04/07/23 [Rx] Furosemide [Lasix] 40 mg PO DAILY 30 Days #30 tab 04/07/23 [Rx] Sertraline [Zoloft] 25 mg PO DAILY 30 Days #30 tab 04/07/23 [Rx] Follow up Appointment(s)/Referral(s): Juju Doty MD [STAFF PHYSICIAN] - 1 Week (Offices are closed, please call tomorrow to make a post hospital follow up appointment.) Qiana Ritter MD [STAFF PHYSICIAN] - 10 Days (Offices are closed, please call tomorrow to make a post hospital follow up appointment.) Armen Adames MD [Primary Care Provider] - 1-2 days (Offices are closed, please call tomorrow to make a post hospital follow up appointment.) [facility] Visiting Nurse, [NON-STAFF] - Lc Saldaña MD [STAFF PHYSICIAN] - 2 Weeks (general surgeon , we recoomend evaluation for possible coloonoscopy with your doctor ) Ambulatory/Diagnostic Orders: Basic Metabolic Panel [LAB.AMB] Time Frame: 2 Days, Location: None Selected Patient Instructions/Handouts: Heart Failure (DC), Colitis (ED) Activity/Diet/Wound Care/Special Instructions: heart healthy diet , low salt and protein diet activity is restricted till you see your doctor we recommend to check your blood test (basic metabolic panel) including your electrolytes and kidney function test with your doctor in 2-3 days please follow up with your visiting nurse tomorrow Discharge Disposition: HOME WITH HOME HEALTH SERVICES
[2023-04-08] MEDS ORDERED: FUROSEMIDE 40 MG TAB PO SCH (09:00)
== END 2023-04-07 12:14 | disposition home health service (06) | DRG 291 ==
LOC: EC 11:15 → 3SCARD 15:02
PROVIDERS: ADMIT Internal Medicine; ATTEND Internal Medicine
DX: I11.0 Hypertensive heart disease with heart failure (principal); I50.23 Acute on chronic systolic (congestive) heart failure; I69.354 Hemiplegia and hemiparesis following cerebral infarction affecting left non-dominant side; K57.32 Diverticulitis of large intestine without perforation or abscess without bleeding; N17.9 Acute kidney failure, unspecified; I25.119 Atherosclerotic heart disease of native coronary artery with unspecified angina pectoris; E78.5 Hyperlipidemia, unspecified; I25.2 Old myocardial infarction; R79.89 Other specified abnormal findings of blood chemistry; M51.36 Other intervertebral disc degeneration, lumbar region; M19.90 Unspecified osteoarthritis, unspecified site; I25.5 Ischemic cardiomyopathy; K21.9 Gastro-esophageal reflux disease without esophagitis; I44.7 Left bundle-branch block, unspecified; N40.0 Benign prostatic hyperplasia without lower urinary tract symptoms; I65.29 Occlusion and stenosis of unspecified carotid artery; L98.9 Disorder of the skin and subcutaneous tissue, unspecified; K52.9 Noninfective gastroenteritis and colitis, unspecified; Z86.010 Personal history of colon polyps; Z74.01 Bed confinement status; Z79.02 Long term (current) use of antithrombotics/antiplatelets; Z79.82 Long term (current) use of aspirin; Z79.899 Other long term (current) drug therapy; Z82.49 Family history of ischemic heart disease and other diseases of the circulatory system; Z95.5 Presence of coronary angioplasty implant and graft; Z86.19 Personal history of other infectious and parasitic diseases; Z96.653 Presence of artificial knee joint, bilateral
CPT/HCPCS: 36415; 71046; 74176; 80048; 80053; 80061; 81003; 83880; 84484; 85025; 85610; 85730; 93005; 94760; 96374; 99285

== ENCOUNTER 2023-04-25 17:12 | Emergency (ER) | payer MEDICARE, BC ==
--- NOTE | 2023-04-25 18:21 | ED ---
Abdominal Pain HPI - General Source: patient Mode of arrival: wheelchair Limitations: no limitations <Kaz Sullivan - Last Filed: 04/25/23 18:23> <Yessi Sharma - Last Filed: 04/26/23 17:53> - General Chief Complaint: Abdominal Pain Stated Complaint: constipation Time Seen by Provider: 04/25/23 18:23 - History of Present Illness Initial Comments: 82-year-old male presenting to the ED with a chief complaint of constipation. Patient states that he has not had a bowel movement in the past week. Now states that he is having some abdominal pain. Notes that he has nausea at baseline states is not worse than usual. (Kaz Sullivan) 82-year-old male presents emergency department chief complaint of constipation. He states that he has not had a bowel movement in 1 week. He is passing gas. Denies nausea, vomiting. He does report some lower abdominal discomfort. He does have history of diverticulosis and diverticulitis. Denies fever, chills. (Ysesi Sharma) - Related Data Home Medications Medication Instructions Recorded Confirmed Terazosin HCl 5 mg PO HS 06/02/15 04/25/23 Tamsulosin [Flomax] 0.4 mg PO HS 03/20/20 04/25/23 Gabapentin [Neurontin] 200 mg PO HS 04/25/23 04/25/23 Lactulose 10 gm PO DAILY PRN 04/25/23 04/25/23 Potassium Chloride ER [K-Dur 10] 10 meq PO DAILY 04/25/23 04/25/23 carvediloL [Coreg*] 12.5 mg PO DAILY 04/25/23 04/25/23 Empagliflozin [Jardiance] 10 mg PO DAILY 04/26/23 04/26/23 Previous Rx's Medication Instructions Recorded Nitroglycerin Sl Tabs [Nitrostat] 0.4 mg SUBLINGUAL Q5M PRN #25 tab 06/04/15 Atorvastatin [Lipitor] 40 mg PO HS #30 tab 11/21/22 Aspirin 81 mg PO DAILY tab 03/22/23 Ticagrelor [Brilinta] 90 mg PO BID #180 tab 03/22/23 Furosemide [Lasix] 40 mg PO DAILY 30 Days #30 tab 04/07/23 Sertraline [Zoloft] 25 mg PO DAILY 30 Days #30 tab 04/07/23 Amoxic-Pot Clav 875-125Mg 1 tab PO Q12HR #20 tab 04/25/23 [Augmentin 875-125] Allergies Allergy/AdvReac Type Severity Reaction Status Date / Time No Known Allergies Allergy Verified 04/25/23 22:30 Review of Systems ROS Other: All systems not noted in ROS Statement are negative. <Kaz Sullivan - Last Filed: 04/25/23 18:23> ROS Other: All systems not noted in ROS Statement are negative. <Yessi Sharma - Last Filed: 04/26/23 17:53> ROS Statement: Those systems with pertinent positive or pertinent negative responses have been documented in the HPI. Past Medical History Past Medical History: Coronary Artery Disease (CAD), Heart Failure, CVA/TIA, GERD/Reflux, Hyperlipidemia, Hypertension, Myocardial Infarction (GA), Musculoskeletal Disorder, Osteoarthritis (OA), Prostate Disorder, Skin Disorder, Thyroid Disorder Additional Past Medical History / Comment(s): Lumbar disc disease, HERNIATED DISC IN BACK. Diverticular disease with diverticulosis, BPH, GA X2, unknown dates. lft leg weakness post cva (NO ASSISTED DEVICES). SHINGLES IN LEFT EYE. 03/19 cardiac stents Last Myocardial Infarction Date:: UNK History of Any Multi-Drug Resistant Organisms: None Reported Past Surgical History: Adenoidectomy, Heart Catheterization With Stent, Joint Replacement, Tonsillectomy Additional Past Surgical History / Comment(s): Chato KNEE REPLACMENT. Colonoscopy with polypectomy, epidural steroid injections. carotid stents- Past Anesthesia/Blood Transfusion Reactions: No Reported Reaction Date of Last Stent Placement:: UNK Past Psychological History: No Psychological Hx Reported Smoking Status: Former smoker Past Alcohol Use History: Rare Past Drug Use History: None Reported - Past Family History Sister(s) Family Medical History: Cancer Additional Family Medical History / Comment(s): Pancreatic cancer. Father History Unknown: Yes Family Medical History: Cancer Mother History Unknown: Yes Family Medical History: Congestive Heart Failure (CHF) Additional Family Medical History / Comment(s): AT AGE 94. <Kaz Sullivan - Last Filed: 04/25/23 18:23> General Exam Limitations: no limitations <Kaz Sullivan - Last Filed: 04/25/23 18:23> Limitations: no limitations General appearance: alert, in no apparent distress Head exam: Present: atraumatic, normocephalic, normal inspection Eye exam: Present: normal appearance, PERRL, EOMI. Absent: scleral icterus, conjunctival injection, periorbital swelling ENT exam: Present: normal exam, mucous membranes moist Neck exam: Present: normal inspection. Absent: tenderness, meningismus, lymph adenopathy Respiratory exam: Present: normal lung sounds bilaterally. Absent: respiratory distress, wheezes, rales, rhonchi, stridor Cardiovascular Exam: Present: regular rate, normal rhythm, normal heart sounds. Absent: systolic murmur, diastolic murmur, rubs, gallop, clicks GI/Abdominal exam: Present: soft, tenderness (LLQ), normal bowel sounds. Absent: distended, guarding, rebound, rigid Back exam: Present: normal inspection Neurological exam: Present: alert, oriented X3 Psychiatric exam: Present: normal affect, normal mood Skin exam: Present: warm, dry, intact, normal color. Absent: rash <Yessi Sharma - Last Filed: 04/26/23 17:53> Course Vital Signs 04/25/23 04/25/23 04/25/23 17:40 20:41 23:00 Temperature 97.9 F Pulse Rate 65 97 71 Respiratory 16 18 18 Rate Blood Pressure 126/72 137/69 150/90 O2 Sat by Pulse 97 97 97 Oximetry 04/26/23 00:30 Temperature 97.9 F Pulse Rate 72 Respiratory 16 Rate Blood Pressure 157/103 O2 Sat by Pulse 96 Oximetry Medical Decision Making <Kaz Sullivan - Last Filed: 04/25/23 18:23> - Lab Data Result diagrams: 04/25/23 21:14 04/25/23 21:14 <Yessi Sharma - Last Filed: 04/26/23 17:53> - Medical Decision Making Quicknote portion performed. Signed Kaz Sullivan PA-C (Kaz Sullivan) Was pt. sent in by a medical professional or institution ([facility], PERSONAL FINANCE INSTRUCTOR, urgent care, hospital, or assisted...) When possible be specific @ -No Did you speak to anyone other than the patient for history (EMS, parent, family, police, friend...)? What history was obtained from this source @ -No Did you review nursing and triage notes (agree or disagree)? Why? @ -I reviewed and agree with nursing and triage notes Were old charts reviewed (outside hosp., previous admission, EMS record, old EKG, old radiological studies, urgent care reports/EKG's, assisted records)? Report findings @ -No old charts were reviewed Differential Diagnosis (chest pain, altered mental status, abdominal pain women, abdominal pain men, vaginal bleeding, weakness, fever, dyspnea, syncope, headache, dizziness, GI bleed, back pain, seizure, CVA, palpatations, mental health, musculoskeletal)? @ -Differential Abdominal Pain Men: Appendicitis, cholecystitis, diverticulosis, ischemic bowel, pancreatitis, hepatitis, UTI, gastroenteritis, AAA, incarcerated hernia, bowel obstruction, constipation, inflammatory bowel, hepatitis, peptic ulcer disease, splenic infarction, perforated viscus, testicular torsion, this is not meant to be an all-inclusive list EKG interpreted by me (3pts min.). @ -None X-rays interpreted by me (1pt min.). @ -KUB x-ray shows pancolonic stool CT interpreted by me (1pt min.). @ -CT abdomen and pelvis shows mild diverticulitis, large stool burden U/S interpreted by me (1pt. min.). @ -None done What testing was considered but not performed or refused? (CT, X-rays, U/S, labs)? Why? @ -None What meds were considered but not given or refused? Why? @ -None Did you discuss the management of the patient with other professionals (professionals i.e. , PA, PERSONAL FINANCE INSTRUCTOR, lab, RT, psych nurse, social work faculty member, cattle feeder, teacher, intelligence support officer, nurse case management)? Give summary @ -No Was smoking cessation discussed for >3mins.? @ -No Was critical care preformed (if so, how long)? @ -No Were there social determinants of health that impacted care today? How? (Homelessness, low income, unemployed, alcoholism, drug addiction, transportation, low edu. Level, literacy, decrease access to med. care, nursing home, rehab)? @ -No Was there de-escalation of care discussed even if they declined (Discuss DNR or withdrawal of care, Hospice)? DNR status @ -No What co-morbidities impacted this encounter? (DM, HTN, Smoking, COPD, CAD, Cancer, CVA, ARF, Chemo, Hep., AIDS, mental health diagnosis, sleep apnea, morb id obesity)? @ -None Was patient admitted / discharged? Hospital course, mention meds given and route, prescriptions, significant lab abnormalities, going to OR and other pertinent info. @ -Discharged. Patient presented to the emergency department chief complaint of cuts patient and abdominal pain. Laboratory studies baseline for patient. CT abdomen and pelvis shows mild diverticulitis with large stool burden. Patient will be given GoLYTELY for constipation relief and Augmentin for mild diverticulitis. Patient understood and agreeable with plan. Patient stable at discharge. Case discussed with Dr. Castanon. Undiagnosed new problem with uncertain prognosis? @ -No Drug Therapy requiring intensive monitoring for toxicity (Heparin, Nitro, Insulin, Cardizem)? @ -No Were any procedures done? @ -No Diagnosis/symptom? @ -Diverticulitis, constipation Acute, or Chronic, or Acute on Chronic? @ -Acute Uncomplicated (without systemic symptoms) or Complicated (systemic symptoms)? @ -uncomplicated Side effects of treatment? @ -No Exacerbation, Progression, or Severe Exacerbation? @ -No Poses a threat to life or bodily function? How? (Chest pain, USA, GA, pneumonia, PE, COPD, DKA, ARF, appy, cholecystitis, CVA, Diverticulitis, Homicidal, Suicidal, threat to staff... and all critical care pts) @ -No (Yessi Sharma) - Lab Data Lab Results 04/25/23 04/25/23 04/25/23 Range/Units 21:14 21:14 21:14 WBC 10.8 H (3.8-10.6) k/uL RBC 3.87 L (4.30-5.90) m/uL Hgb 11.6 L (13.0-17.5) gm/dL Hct 34.6 L (39.0-53.0) % MCV 89.3 (80.0-100.0) fL MCH 29.9 (25.0-35.0) pg MCHC 33.5 (31.0-37.0) g/dL RDW 14.1 (11.5-15.5) % Plt Count 148 L (150-450) k/uL MPV 9.0 Neutrophils % 71 % Lymphocytes % 20 % Monocytes % 4 % Eosinophils % 4 % Basophils % 0 % Neutrophils # 7.7 (1.3-7.7) k/uL Lymphocytes # 2.2 (1.0-4.8) k/uL Monocytes # 0.5 (0-1.0) k/uL Eosinophils # 0.4 (0-0.7) k/uL Basophils # 0.0 (0-0.2) k/uL PT 10.7 (10.0-12.5) sec INR 1.0 (<1.2) APTT 25.2 (22.0-30.0) sec Sodium (137-145) mmol/L Potassium (3.5-5.1) mmol/L Chloride (98-107) mmol/L Carbon Dioxide (22-30) mmol/L Anion Gap mmol/L BUN (9-20) mg/dL Creatinine (0.66-1.25) mg/dL Est GFR (CKD-EPI)AfAm (>60 ml/min/1.73 sqM) Est GFR (CKD-EPI)NonAf (>60 ml/min/1.73 sqM) Glucose (74-99) mg/dL Plasma Lactic Acid Hunter (0.7-2.0) mmol/L Calcium (8.4-10.2) mg/dL Total Bilirubin (0.2-1.3) mg/dL AST (17-59) U/L ALT (4-49) U/L Alkaline Phosphatase (38-126) U/L Total Protein (6.3-8.2) g/dL Albumin (3.5-5.0) g/dL Amylase (30-110) U/L Lipase (23-300) U/L Urine Color Colorless Urine Appearance Clear (Clear) Urine pH 5.5 (5.0-8.0) Ur Specific Lynn 1.013 (1.001-1.035) Urine Protein Negative (Negative) Urine Glucose (UA) 3+ H (Negative) Urine Ketones Negative (Negative) Urine Blood Negative (Negative) Urine Nitrite Negative (Negative) Urine Bilirubin Negative (Negative) Urine Urobilinogen <2.0 (<2.0) mg/dL Ur Leukocyte Esterase Negative (Negative) 11/30/23 11/30/23 Range/Units 21:14 21:14 WBC (3.8-10.6) k/uL RBC (4.30-5.90) m/uL Hgb (13.0-17.5) gm/dL Hct (39.0-53.0) % MCV (80.0-100.0) fL MCH (25.0-35.0) pg MCHC (31.0-37.0) g/dL RDW (11.5-15.5) % Plt Count (150-450) k/uL MPV Neutrophils % % Lymphocytes % % Monocytes % % Eosinophils % % Basophils % % Neutrophils # (1.3-7.7) k/uL Lymphocytes # (1.0-4.8) k/uL Monocytes # (0-1.0) k/uL Eosinophils # (0-0.7) k/uL Basophils # (0-0.2) k/uL PT (10.0-12.5) sec INR (<1.2) APTT (22.0-30.0) sec Sodium 135 L (137-145) mmol/L Potassium 3.5 (3.5-5.1) mmol/L Chloride 98 (98-107) mmol/L Carbon Dioxide 22 (22-30) mmol/L Anion Gap 15 mmol/L BUN 52 H (9-20) mg/dL Creatinine 2.21 H (0.66-1.25) mg/dL Est GFR (CKD-EPI)AfAm 31 (>60 ml/min/1.73 sqM) Est GFR (CKD-EPI)NonAf 26 (>60 ml/min/1.73 sqM) Glucose 104 H (74-99) mg/dL Plasma Lactic Acid Hunter 1.0 (0.7-2.0) mmol/L Calcium 9.2 (8.4-10.2) mg/dL Total Bilirubin 0.6 (0.2-1.3) mg/dL AST 25 (17-59) U/L ALT 21 (4-49) U/L Alkaline Phosphatase 95 (38-126) U/L Total Protein 6.8 (6.3-8.2) g/dL Albumin 4.0 (3.5-5.0) g/dL Amylase 80 (30-110) U/L Lipase 152 (23-300) U/L Urine Color Urine Appearance (Clear) Urine pH (5.0-8.0) Ur Specific Lynn (1.001-1.035) Urine Protein (Negative) Urine Glucose (UA) (Negative) Urine Ketones (Negative) Urine Blood (Negative) Urine Nitrite (Negative) Urine Bilirubin (Negative) Urine Urobilinogen (<2.0) mg/dL Ur Leukocyte Esterase (Negative) Disposition <Kaz Sullivan - Last Filed: 04/25/23 18:23> Is patient prescribed a controlled substance at d/c from ED?: No <Yessi Sharma - Last Filed: 04/26/23 17:53> Clinical Impression: Diverticulitis, Constipation Disposition: HOME SELF-CARE Condition: Stable Additional Instructions: Please follow up with your primary care provider. Return to the emergency department for new or worsening symptoms. Prescriptions: Amoxic-Pot Clav 875-125Mg [Augmentin 875-125] 1 tab PO Q12HR #20 tab Referrals: Armen Adames MD [Primary Care Provider] - 1-2 days
[2023-04-25 19:13] VITALS: TEMP 97.9
--- NOTE | 2023-04-25 19:22 | XR ---
EXAMINATION TYPE: XR KUB DATE OF EXAM: 04/25/2023 6:45 PM CLINICAL HISTORY: Constipated TECHNIQUE: 2 upright views were obtained. COMPARISON: None. FINDINGS: There is a single bowel loop projecting over the right lower lumbar transverse processes which appear s mildly gas-distended. Otherwise, scattered gas is seen in non-distended small bowel loops in all 4 quadrants. Gas and fecal material is seen in non-distended colon. Excessive pancolonic stool volume n oted. There is no visceromegaly, pneumoperitoneum, or abnormal calcification appreciated. The lung bases are clear and the osseous structures are intact. IMPRESSION: Excessive pancolonic stool volume.
[2023-04-25 21:30] LABS: Basophils % (A) 0 %; Eosinophils # (A) 0.4 k/uL (0-0.7); Eosinophils % (A) 4 %; HCT 34.6 % (39.0-53.0); HGB 11.6 gm/dL (13.0-17.5); Lymphocytes # (A) 2.2 k/uL (1.0-4.8); Lymphocytes % (A) 20 %; MCH 29.9 pg (25.0-35.0); MCHC 33.5 g/dL (31.0-37.0); MCV 89.3 fL (80.0-100.0); Monocytes # (A) 0.5 k/uL (0-1.0); Monocytes % (A) 4 %; Neutrophils # (A) 7.7 k/uL (1.3-7.7); Neutrophils % (A) 71 %; Platelet Count 148 k/uL (150-450); RBC 3.87 m/uL (4.30-5.90); RDW 14.1 % (11.5-15.5); WBC 10.8 k/uL (3.8-10.6)
[2023-04-25 21:51] LABS: Partial Thromboplastin Time 25.2 sec (22.0-30.0); Prothrombin Time 10.7 sec (10.0-12.5)
[2023-04-25 21:52] LABS: ALT 21 U/L (4-49); AST 25 U/L (17-59); African American GFR (CKD) 31 (>60 ml/min/1.73 sqM); Alkaline Phosphatase 95 U/L (38-126); Amylase 80 U/L (30-110); Anion Gap 15 mmol/L; Blood Urea Nitrogen 52 mg/dL (9-20); Calcium 9.2 mg/dL (8.4-10.2); Carbon Dioxide 22 mmol/L (22-30); Chloride 98 mmol/L (98-107); Glucose 104 mg/dL (74-99); Lipase 152 U/L (23-300); Non-African American GFR(CKD) 26 (>60 ml/min/1.73 sqM); Potassium 3.5 mmol/L (3.5-5.1); Sodium 135 mmol/L (137-145); Total Bilirubin 0.6 mg/dL (0.2-1.3); Total Protein 6.8 g/dL (6.3-8.2)
[2023-04-25 22:30] LABS: Appearance,Urine Clear (Clear); Bilirubin,Urine Negative (Negative); Blood,Urine Negative (Negative); Color,Urine Colorless; Glucose,Urine (UA) 3+ (Negative); Ketones,Urine Negative (Negative); Leukocyte Esterase,Urine Negative (Negative); Nitrite,Urine Negative (Negative); PH, Urine 5.5 (5.0-8.0); Protein,Urine Negative (Negative); Specific Gravity,Urine 1.013 (1.001-1.035); Urobilinogen,Urine <2.0 mg/dL (<2.0)
--- NOTE | 2023-04-25 23:29 | CT ---
EXAM: CT Abdomen and Pelvis Without Intravenous Contrast CLINICAL HISTORY: ITS.REASON CT Reason: LLQ pain, hx diverticulitis TECHNIQUE: Axial computed tomography images of the abdomen and pelvis without intravenous contrast. CTDI is 10.1 mGy and DLP is 600.9 mGy-cm. This CT exam was performed using one or more of the following dose reduction techniques: automated exposure control, adjustment of the mA and/or kV according to patient size, and/or use of iterative reconstruction technique. COMPARISON: No relevant prior studies available. FINDINGS: ABDOMEN: Liver: Hepatic cysts the largest in the left hepatic lobe measuring 5. 3 cm. Gallbladder and bile ducts: Unremarkable. Pancreas: Unremarkable. Spleen: Unremarkable. Adrenals: Unremarkable. Kidneys and ureters: Exophytic cortical cysts on the left kidney. No lesions on the right. No hydronephrosis. Nonspecific perinephric fat stranding bilaterally. Stomach and bowel: Mild acute diverticulitis of the sigmoid colon. No perforation or abscess. Excess colonic stool burden consistent with constipation. PELVIS: Appendix: No findings to suggest acute appendicitis. Bladder: Unremarkable. Reproductive: Unremarkable as visualized. ABDOMEN and PELVIS: Intraperitoneal space: Unremarkable. No free air. No significant fluid collection. Bones/joints: No acute fracture. Soft tissues: Unremarkable. Vasculature: Ectatic aorta measuring 3 cm. Moderate atherosclerotic calcifications. Lymph nodes: Unremarkable. IMPRESSION: 1. Mild acute diverticulitis of the sigmoid colon. No perforation or abscess. 2. Excess colonic stool burden consistent with constipation. 3. Ectatic aorta measuring 3 cm. Moderate atherosclerotic calcifications.
[2023-04-25] MEDS ORDERED: AMOXIC-POT CLAV 875-125MG 1 EACH TAB PO STA (23:47)
[2023-04-25] MEDS ORDERED: PEG 3350 (236 GM/BTL) + LYTES 4,000 ML BOTTLE PO ONE (23:47)
[2023-04-26 01:08] VITALS: BP 157/103; PULSE 72; RESP 16
== END 2023-04-26 00:35 | disposition home or self-care (01) ==
LOC: EC 17:12
DX: K57.32 Diverticulitis of large intestine without perforation or abscess without bleeding (principal); I25.2 Old myocardial infarction; I25.10 Atherosclerotic heart disease of native coronary artery without angina pectoris; I11.0 Hypertensive heart disease with heart failure; I50.9 Heart failure, unspecified; Z87.891 Personal history of nicotine dependence; Z86.73 Personal history of transient ischemic attack (TIA), and cerebral infarction without residual deficits; Z79.01 Long term (current) use of anticoagulants; Z79.899 Other long term (current) drug therapy
CPT/HCPCS: 36415; 74018; 74176; 80053; 81003; 82150; 83605; 83690; 85025; 85610; 85730; 99284

== ENCOUNTER 2023-05-16 07:09 | Inpatient (IN) | payer MEDICARE, BC ==
[2023-05-16] MEDS ORDERED: MORPHINE SULFATE 4 MG/ML SYRINGE IV STA (07:15)
[2023-05-16] MEDS ORDERED: LABETALOL 5 MG/ML VIAL MDV IVP STA (07:15)
[2023-05-16] MEDS ORDERED: SODIUM CHLORIDE 0.9% 500 ML 500 ML IV STA (07:15)
--- NOTE | 2023-05-16 07:16 | ED ---
SOB HPI - General Stated Complaint: Chest Pain Time Seen by Provider: 05/16/23 07:14 Source: EMS, RN notes reviewed, old records reviewed Mode of arrival: EMS Limitations: no limitations - History of Present Illness Initial Comments: This is a 82-year-old male to the emergency department for evaluation today. Presents today for evaluation of shortness of breath called EMS secondary to shortness of breath here in the emergency prior. Patient denies any chest pain here in the ER. Patient is brought in by EMS with concerning EKG changes. Patient relatively ER states he does feel better he is not significantly low oxygen currently which is helping with his breathing. Patient denies any recent fevers cough congestion does have a long metal: History including significant heart history MD Complaint: shortness of breath, cough, anxiety -: days(s) Severity: moderate Consistency: constant Improves With: oxygen Known History Of: COPD Context: recent URI, recent illness Associated Symptoms: denies other symptoms - Related Data Home Medications Medication Instructions Recorded Confirmed Terazosin HCl 2 mg PO HS 06/02/15 05/18/23 Tamsulosin [Flomax] 0.4 mg PO HS 03/20/20 05/16/23 Gabapentin [Neurontin] 200 mg PO BID 04/25/23 05/16/23 Empagliflozin [Jardiance] 10 mg PO DAILY 05/16/23 05/16/23 HYDROcodone/APAP 7.5-325MG [[place] 1 tab PO Q8H PRN 05/16/23 05/16/23 7.5-325] Previous Rx's Medication Instructions Recorded Nitroglycerin Sl Tabs [Nitrostat] 0.4 mg SUBLINGUAL Q5M PRN #25 tab 06/04/15 Atorvastatin [Lipitor] 40 mg PO HS #30 tab 11/21/22 Aspirin 81 mg PO DAILY tab 03/22/23 Ticagrelor [Brilinta] 90 mg PO BID #180 tab 03/22/23 Furosemide [Lasix] 40 mg PO BID@0900,1600 #60 tab 05/18/23 Losartan [Cozaar] 12.5 mg PO HS #30 tab 05/18/23 Potassium Chloride ER [K-Dur 20] 20 meq PO DAILY #30 tab 05/18/23 carvediloL [Coreg] 6.25 mg PO BID-W/MEALS #60 tab 05/18/23 Allergies Allergy/AdvReac Type Severity Reaction Status Date / Time No Known Allergies Allergy Verified 05/16/23 08:54 Review of Systems ROS Statement: Those systems with pertinent positive or pertinent negative responses have been documented in the HPI. ROS Other: All systems not noted in ROS Statement are negative. Past Medical History Past Medical History: Coronary Artery Disease (CAD), Heart Failure, CVA/TIA, GERD/Reflux, Hyperlipidemia, Hypertension, Myocardial Infarction (MA), Musculoskeletal Disorder, Osteoarthritis (OA), Prostate Disorder, Skin Disorder, Thyroid Disorder Additional Past Medical History / Comment(s): Lumbar disc disease, HERNIATED DISC IN BACK. Diverticular disease with diverticulosis, BPH, MA X2, unknown dates. lft leg weakness post cva (NO ASSISTED DEVICES). SHINGLES IN LEFT EYE. 03/19 cardiac stents Last Myocardial Infarction Date:: UNK History of Any Multi-Drug Resistant Organisms: None Reported Past Surgical History: Adenoidectomy, Heart Catheterization With Stent, Joint Replacement, Tonsillectomy Additional Past Surgical History / Comment(s): Chato KNEE REPLACMENT. Colonoscopy with polypectomy, epidural steroid injections. carotid stents- Past Anesthesia/Blood Transfusion Reactions: No Reported Reaction Date of Last Stent Placement:: UNK Past Psychological History: No Psychological Hx Reported Smoking Status: Former smoker Past Alcohol Use History: Rare Past Drug Use History: None Reported - Past Family History Sister(s) Family Medical History: Cancer Additional Family Medical History / Comment(s): Pancreatic cancer. Father History Unknown: Yes Family Medical History: Cancer Mother History Unknown: Yes Family Medical History: Congestive Heart Failure (CHF) Additional Family Medical History / Comment(s): AT AGE 94. General Exam Limitations: no limitations General appearance: alert, in no apparent distress, anxious Head exam: Present: atraumatic, normocephalic, normal inspection Eye exam: Present: normal appearance, PERRL, EOMI. Absent: scleral icterus, conjunctival injection, periorbital swelling ENT exam: Present: normal exam, mucous membranes dry Neck exam: Present: normal inspection. Absent: tenderness, meningismus, lymphadenopathy Respiratory exam: Present: respiratory distress. Absent: wheezes, rales, rhonchi, stridor Cardiovascular Exam: Present: regular rate, normal rhythm, normal heart sounds. Absent: systolic murmur, diastolic murmur, rubs, gallop, clicks GI/Abdominal exam: Present: soft, normal bowel sounds. Absent: distended, tenderness, guarding, rebound, rigid Extremities exam: Present: normal inspection, full ROM, normal capillary refill. Absent: tenderness, pedal edema, joint swelling, calf tenderness Back exam: Present: normal inspection Neurological exam: Present: alert, oriented X3, CN II-XII intact Psychiatric exam: Present: normal affect, normal mood Skin exam: Present: warm, dry, intact, normal color. Absent: rash Course Vital Signs 05/16/23 05/16/23 05/16/23 07:11 12:36 13:01 Temperature 98.2 F 97.4 F L 97.8 F Pulse Rate 106 H 92 Pulse Rate [ 112 H Pulse Oximetery ] Respiratory 24 22 20 Rate Blood Pressure 131/97 149/102 Blood Pressure 143/95 [Right Arm] O2 Sat by Pulse 93 L 92 L 96 Oximetry 05/16/23 05/16/23 05/16/23 15:29 16:00 20:37 Temperature Pulse Rate 92 97 135 H Pulse Rate [ Pulse Oximetery ] Respiratory 16 18 30 H Rate Blood Pressure 153/101 139/81 157/116 Blood Pressure [Right Arm] O2 Sat by Pulse 97 92 L Oximetry 05/16/23 05/16/23 05/16/23 21:16 22:01 23:25 Temperature Pulse Rate 134 H 152 H 110 H Pulse Rate [ Pulse Oximetery ] Respiratory 30 H 34 H Rate Blood Pressure 173/119 110/85 Blood Pressure [Right Arm] O2 Sat by Pulse 95 93 L Oximetry 05/16/23 05/16/23 23:30 23:31 Temperature 96.9 F L Pulse Rate 108 H 110 H Pulse Rate [ Pulse Oximetery ] Respiratory 21 Rate Blood Pressure 140/103 Blood Pressure [Right Arm] O2 Sat by Pulse 97 Oximetry - Reevaluation(s) Reevaluation #1: 05/16/23 07:53 Records reviewed Reevaluation #2: Has minimal improvement in symptoms, oxygenation is improved Reevaluation #3: Patient informed results questions answered Reevaluation #4: 05/16/23 07:53 Was pt. sent in by a medical professional or institution (, PA, ICE SKATING TEACHER, urgent care, hospital, or fdc...) When possible be specific @ -no Did you speak to anyone other than the patient for history (EMS, parent, family, police, friend...)? What history was obtained from this source @ -no Did you review nursing and triage notes (agree or disagree)? Why? @ -agree Are old charts reviewed (outside hosp., previous admission, EMS record, old EKG, old radiological studies, urgent care reports/EKG's, fdc records)? Report findings @ -yes Differential Diagnosis (chest pain, altered mental status, abdominal pain women, abdominal pain men, vaginal bleeding, weakness, fever, dyspnea, syncope, headache, dizziness, GI bleed, back pain, seizure, CVA, palpatations, mental health, musculoskeletal)? @ -prior EKG interpreted by me (3pts min.). @ -yes X-rays interpreted by me (1pt min.). @ -yes positive for pulmonary edema CT interpreted by me (1pt min.). @ -no U/S interpreted by me (1pt. min.). @ -no What testing was considered but not performed or refused? (CT, X-rays, U/S, labs)? Why? @ -none What meds were considered but not given or refused? Why? @ -none Did you discuss the management of the patient with other professionals (professionals i.e. , PA, ICE SKATING TEACHER, lab, RT, psych nurse, social work associate, interventional cardiologist, teacher, third officer, protective services case worker)? Give summary @ -no Was smoking cessation discussed for >3mins.? @ -no Was critical care preformed (if so, how long)? @ -yes31 Were there social determinants of health that impacted care today? How? (Homelessness, low income, unemployed, alcoholism, drug addiction, transportation, low edu. Level, literacy, decrease access to med. care, usp, rehab)? @ -none Was there de-escalation of care discussed even if they declined (Discuss DNR or withdrawal of care, Hospice)? DNR status @ -no What co-morbidities impacted this encounter? (DM, HTN, Smoking, COPD, CAD, Cancer, CVA, ARF, Chemo, Hep., AIDS, mental health diagnosis, sleep apnea, morbid obesity)? @ -none Was patient admitted / discharged? Hospital course, mention meds given and route, prescriptions, significant lab abnormalities, going to OR and other per tinent info. @ - 82 male DF for evaluation of shortness of breath weakness, hypoxia found here in the emergency with significant CHF and pulmonary edema and x-ray, patient be admitted for further supportive care diuresis Admitted Undiagnosed new problem with uncertain prognosis? @ -no Drug Therapy requiring intensive monitoring for toxicity (Heparin, Nitro, Insulin, Cardizem)? @ -no Were any procedures done? @ -no Diagnosis/symptom? @ -CHF with hypoxia Acute, or Chronic, or Acute on Chronic? @ -Acute Uncomplicated (without systemic symptoms) or Complicated (systemic symptoms)? @ -Complicated Side effects of treatment? @ -no Exacerbation, Progression, or Severe Exacerbation? @ -exacerbation Poses a threat to life or bodily function? How? (Chest pain, USA, MA, pneumonia, PE, COPD, DKA, ARF, appy, cholecystitis, CVA, Diverticulitis, Homicidal, Suicidal, threat to staff... and all critical care pts) @ -yes severe hypoxia and CHF Reevaluation #5: 05/16/23 07:53 Differential Dyspnea: Coronary syndrome, arrhythmia, tamponade, asthma, COPD, pulmonary embolism, pneumonia, pneumothorax, pulmonary effusion, anaphylaxis, diabetic ketoacidosis, flailed chest, pulmonary contusion, diaphragmatic rupture, anemia, neuromuscular, this is not meant to be an all-inclusive list. - Consultations Consultation #1: Spoke with PMH were agrees to admit this patient Medical Decision Making - Medical Decision Making 82 male to the emergency department for evaluation severe shortness breath found to be in CHF with hypoxia and significantly acute pulmonary edema, patient be admitted for supportive care - Lab Data Result diagrams: 05/19/23 07:14 05/19/23 07:14 Lab Results 05/16/23 05/16/23 05/16/23 Range/Units 07:15 07:18 07:18 WBC 9.5 (3.8-10.6) k/uL RBC 3.74 L (4.30-5.90) m/uL Hgb 11.1 L (13.0-17.5) gm/dL Hct 32.7 L (39.0-53.0) % MCV 87.3 (80.0-100.0) fL MCH 29.5 (25.0-35.0) pg MCHC 33.9 (31.0-37.0) g/dL RDW 13.8 (11.5-15.5) % Plt Count 187 (150-450) k/uL MPV 8.5 Neutrophils % 66 % Lymphocytes % 23 % Monocytes % 4 % Eosinophils % 5 % Basophils % 0 % Neutrophils # 6.3 (1.3-7.7) k/uL Lymphocytes # 2.2 (1.0-4.8) k/uL Monocytes # 0.4 (0-1.0) k/uL Eosinophils # 0.4 (0-0.7) k/uL Basophils # 0.0 (0-0.2) k/uL PT 10.5 (10.0-12.5) sec INR 0.9 (<1.2) APTT 24.6 (22.0-30.0) sec Sodium (137-145) mmol/L Potassium (3.5-5.1) mmol/L Chloride (98-107) mmol/L Carbon Dioxide (22-30) mmol/L Anion Gap mmol/L BUN (9-20) mg/dL Creatinine (0.66-1.25) mg/dL Est GFR (CKD-EPI)AfAm (>60 ml/min/1.73 sqM) Est GFR (CKD-EPI)NonAf (>60 ml/min/1.73 sqM) Glucose (74-99) mg/dL POC Glucose (mg/dL) 122 H (70-110) mg/dL POC Glu Spa Attendant ID [place] Plasma Lactic Acid Hunter (0.7-2.0) mmol/L Calcium (8.4-10.2) mg/dL Phosphorus (2.5-4.5) mg/dL Magnesium (1.6-2.3) mg/dL Total Bilirubin (0.2-1.3) mg/dL AST (17-59) U/L ALT (4-49) U/L Alkaline Phosphatase (38-126) U/L Troponin I (0.000-0.034) ng/mL NT-Pro-B Natriuret Pep pg/mL Total Protein (6.3-8.2) g/dL Albumin (3.5-5.0) g/dL Influenza Type A (PCR) (Not Detectd) Influenza Type B (PCR) (Not Detectd) RSV (PCR) (Not Detectd) SARS-CoV-2 (PCR) (Not Detectd) 05/16/23 05/16/23 05/16/23 Range/Units 07:18 07:18 07:18 WBC (3.8-10.6) k/uL RBC (4.30-5.90) m/uL Hgb (13.0-17.5) gm/dL Hct (39.0-53.0) % MCV (80.0-100.0) fL MCH (25.0-35.0) pg MCHC (31.0-37.0) g/dL RDW (11.5-15.5) % Plt Count (150-450) k/uL MPV Neutrophils % % Lymphocytes % % Monocytes % % Eosinophils % % Basophils % % Neutrophils # (1.3-7.7) k/uL Lymphocytes # (1.0-4.8) k/uL Monocytes # (0-1.0) k/uL Eosinophils # (0-0.7) k/uL Basophils # (0-0.2) k/uL PT (10.0-12.5) sec INR (<1.2) APTT (22.0-30.0) sec Sodium 135 L (137-145) mmol/L Potassium 3.3 L (3.5-5.1) mmol/L Chloride 101 (98-107) mmol/L Carbon Dioxide 19 L (22-30) mmol/L Anion Gap 15 mmol/L BUN 48 H (9-20) mg/dL Creatinine 2.34 H (0.66-1.25) mg/dL Est GFR (CKD-EPI)AfAm 28 (>60 ml/min/1.73 sqM) Est GFR (CKD-EPI)NonAf 25 (>60 ml/min/1.73 sqM) Glucose 116 H (74-99) mg/dL POC Glucose (mg/dL) (70-110) mg/dL POC Glu Spa Attendant ID Plasma Lactic Acid Hunter 1.0 (0.7-2.0) mmol/L Calcium 9.0 (8.4-10.2) mg/dL Phosphorus 4.3 (2.5-4.5) mg/dL Magnesium 2.4 H (1.6-2.3) mg/dL Total Bilirubin 0.7 (0.2-1.3) mg/dL AST 21 (17-59) U/L ALT 16 (4-49) U/L Alkaline Phosphatase 106 (38-126) U/L Troponin I 0.085 H* (0.000-0.034) ng/mL NT-Pro-B Natriuret Pep 86760 pg/mL Total Protein 6.9 (6.3-8.2) g/dL Albumin 4.0 (3.5-5.0) g/dL Influenza Type A (PCR) (Not Detectd) Influenza Type B (PCR) (Not Detectd) RSV (PCR) (Not Detectd) SARS-CoV-2 (PCR) (Not Detectd) 05/16/23 Range/Units 09:33 WBC (3.8-10.6) k/uL RBC (4.30-5.90) m/uL Hgb (13.0-17.5) gm/dL Hct (39.0-53.0) % MCV (80.0-100.0) fL MCH (25.0-35.0) pg MCHC (31.0-37.0) g/dL RDW (11.5-15.5) % Plt Count (150-450) k/uL MPV Neutrophils % % Lymphocytes % % Monocytes % % Eosinophils % % Basophils % % Neutrophils # (1.3-7.7) k/uL Lymphocytes # (1.0-4.8) k/uL Monocytes # (0-1.0) k/uL Eosinophils # (0-0.7) k/uL Basophils # (0-0.2) k/uL PT (10.0-12.5) sec INR (<1.2) APTT (22.0-30.0) sec Sodium (137-145) mmol/L Potassium (3.5-5.1) mmol/L Chloride (98-107) mmol/L Carbon Dioxide (22-30) mmol/L Anion Gap mmol/L BUN (9-20) mg/dL Creatinine (0.66-1.25) mg/dL Est GFR (CKD-EPI)AfAm (>60 ml/min/1.73 sqM) Est GFR (CKD-EPI)NonAf (>60 ml/min/1.73 sqM) Glucose (74-99) mg/dL POC Glucose (mg/dL) (70-110) mg/dL POC Glu Spa Attendant ID Plasma Lactic Acid Hunter (0.7-2.0) mmol/L Calcium (8.4-10.2) mg/dL Phosphorus (2.5-4.5) mg/dL Magnesium (1.6-2.3) mg/dL Total Bilirubin (0.2-1.3) mg/dL AST (17-59) U/L ALT (4-49) U/L Alkaline Phosphatase (38-126) U/L Troponin I (0.000-0.034) ng/mL NT-Pro-B Natriuret Pep pg/mL Total Protein (6.3-8.2) g/dL Albumin (3.5-5.0) g/dL Influenza Type A (PCR) Not Detected (Not Detectd) Influenza Type B (PCR) Not Detected (Not Detectd) RSV (PCR) Not Detected (Not Detectd) SARS-CoV-2 (PCR) Not Detected (Not Detectd) - EKG Data -: EKG Interpreted by Me (EKG is sinus tachycardia 104 MN 102 QRS 157 QTc 467) Rate: normal (EKG shows persistent left bundle-branch block) - Radiology Data Radiology results: report reviewed (xr positive for significant pulmonary edema ), image reviewed Critical Care Time Critical Care Time: Yes Total Critical Care Time: 31 Disposition Clinical Impression: CHF (congestive heart failure), Hypoxia, Dyspnea, Acute pulmonary edema Disposition: ADMITTED IP TO THIS HOSP Condition: Fair Is patient prescribed a controlled substance at d/c from ED?: No Time of Disposition: 23:40
[2023-05-16 07:17] LABS: Glucose,Whole Blood 122 mg/dL (70-110)
[2023-05-16 07:31] LABS: Basophils % (A) 0 %; Eosinophils # (A) 0.4 k/uL (0-0.7); Eosinophils % (A) 5 %; HCT 32.7 % (39.0-53.0); HGB 11.1 gm/dL (13.0-17.5); Lymphocytes # (A) 2.2 k/uL (1.0-4.8); Lymphocytes % (A) 23 %; MCH 29.5 pg (25.0-35.0); MCHC 33.9 g/dL (31.0-37.0); MCV 87.3 fL (80.0-100.0); Mean Platelet Volume 8.5; Monocytes # (A) 0.4 k/uL (0-1.0); Monocytes % (A) 4 %; Neutrophils # (A) 6.3 k/uL (1.3-7.7); Neutrophils % (A) 66 %; Platelet Count 187 k/uL (150-450); RBC 3.74 m/uL (4.30-5.90); RDW 13.8 % (11.5-15.5); WBC 9.5 k/uL (3.8-10.6)
--- NOTE | 2023-05-16 07:38 | XR ---
EXAMINATION TYPE: XR chest 1V portable DATE OF EXAM: 05/16/2023 Comparison: 04/04/2023 Clinical History: 82-year-old male with chest pain Findings: Heart borderline in size. Diffuse interstitial opacities, more patchy confluent at the lower lungs. P ossible trace right effusion. Impression: Diffuse interstitial opacities are new. Opacities are more patchy and confluent at the lung bases and there is possible trace right effusion. Correlate for possible etiologies including infectious or as piration pneumonitis, COVID pneumonia, or interstitial pulmonary edema.
[2023-05-16 07:42] LABS: INR 0.9 (<1.2); Partial Thromboplastin Time 24.6 sec (22.0-30.0); Prothrombin Time 10.5 sec (10.0-12.5)
[2023-05-16 07:52] LABS: ALT 16 U/L (4-49); AST 21 U/L (17-59); African American GFR (CKD) 28 (>60 ml/min/1.73 sqM); Alkaline Phosphatase 106 U/L (38-126); Anion Gap 15 mmol/L; Blood Urea Nitrogen 48 mg/dL (9-20); Carbon Dioxide 19 mmol/L (22-30); Chloride 101 mmol/L (98-107); Glucose 116 mg/dL (74-99); Magnesium 2.4 mg/dL (1.6-2.3); Non-African American GFR(CKD) 25 (>60 ml/min/1.73 sqM); Phosphorus 4.3 mg/dL (2.5-4.5); Potassium 3.3 mmol/L (3.5-5.1); Sodium 135 mmol/L (137-145); Total Bilirubin 0.7 mg/dL (0.2-1.3); Total Protein 6.9 g/dL (6.3-8.2)
[2023-05-16 07:58] LABS: NT-Pro-B-Type Natriuretic Pept 19800 pg/mL
[2023-05-16] MEDS ORDERED: FUROSEMIDE 10 MG/ML 10 ML VIAL IV STA (11:38)
[2023-05-16] MEDS: FUROSEMIDE 10 MG/ML 10 ML VIAL IV SCH ×2 (12:17→23:32)
[2023-05-16] MEDS ORDERED: POTASSIUM CHLORIDE ER 20 MEQ TAB.ER PO STA (16:28)
[2023-05-16] MEDS ORDERED: NITROGLYCERIN SL TABS 0.4 MG TAB SUBLINGUAL PRN (16:29)
[2023-05-16] MEDS ORDERED: HYDROcodone/APAP 7.5-325MG 1 EACH TAB PO PRN (16:29)
[2023-05-16] MEDS: POTASSIUM CHLORIDE ER 20 MEQ TAB.ER PO SCH (17:12)
[2023-05-16] MEDS: TICAGRELOR 90 MG TAB PO SCH (20:31)
[2023-05-16] MEDS: ATORVASTATIN 40 MG TAB PO SCH (20:31)
[2023-05-16] MEDS: GABAPENTIN 100 MG CAP PO SCH (20:31)
[2023-05-16] MEDS: TAMSULOSIN 0.4 MG CAP.ER.24H PO SCH (20:31)
[2023-05-16] MEDS: DOXAZOSIN 4 MG TAB PO SCH (20:31)
[2023-05-16] MEDS ORDERED: IPRATROPIUM-ALBUTEROL 3 ML NEB IH STA (22:30)
[2023-05-16 22:38] LABS: ABG Base Excess -2.2 mmol/L; ABG HCO3 23 mmol/L (21-25); ABG PCO2 36 mmHg (35-45); ABG PH 7.41 (7.35-7.45); ABG PO2 77 mmHg (83-108); ABG TCO2 24 mmol/L (19-24); Allen Test Performed? Yes
--- NOTE | 2023-05-16 23:24 | P.HPIM ---
History of Present Illness H&P Date: 05/16/23 Chief Complaint: Difficulty in breathing Patient is a 82-year-old male with a known history of ischemic cardiomyopathy with ejection fraction 25%, multivessel coronary artery disease s/p angioplasty of RCA and is also found to have significant disease involving LAD and diagonal with some moderate disease in the circumflex artery., Not a candidate for bypass graft transfer CT surgery, history of CVA/TIA, GERD, hypertension, hyperpnea, history DE, BPH, prior history of smoking presents to ER with complaints of worsening shortness of breath since morning. Patient's called EMS and was brought to ER. Patient was found to be hypoxic requiring oxygen via nasal cannula en route to ER. Patient otherwise denies any complaints of chest pain while in the ER. Denies any complaints of fever or chills. Denies any cough or sputum production. Patient does have minimal leg swelling. Chest x-ray on admission showed diffuse interstitial opacities are new. Opacities are more patchy and confluent at the lung bases and there is possible trace right effusion. Correlate for possible etiologies including infectious aspiration pneumonitis, COVID-pneumonia, interstitial pulmonary edema. EKG showed sinus tachycardia with short DC interval. Laboratory showed WBC 9.5 hemoglobin 11.1 and platelets 13.8 Sodium 135 potassium 3.3, chloride 101 bicarb is 19 BUN 48 and creatinine 2.34 and blood sugar 116 Troponin 0.085, 0.149 and 0.144 proBNP Influenza, RSV and COVID-19 PCR not detected. Review of Systems Constitutional: Patient denies any fever or chills . no Generalized weakness. Abdomen: Patient denied any nausea or vomiting or abd. pain Cardiovascular: Patient denies any chest pain. Patient does complain of shortness of breath and leg swelling. Respiratory: patient denied any cough . no sputum production. No shortness of breath Neurologic: Patient denied any numbness or tingling or headache. Musculoskeletal: Patient denies any complaints of joint swelling or deformity. Skin: Negative Psychiatric: Negative Endocrine: No heat or cold intolerance. No recent weight gain. Genitourinary: No dysuria or hematuria. All other 14 point ROS negative except the above Past Medical History Past Medical History: Coronary Artery Disease (CAD), Heart Failure, CVA/TIA, GERD/Reflux, Hyperlipidemia, Hypertension, Myocardial Infarction (DE), Musculoskeletal Disorder, Osteoarthritis (OA), Prostate Disorder, Skin Disorder, Thyroid Disorder Additional Past Medical History / Comment(s): Lumbar disc disease, HERNIATED DISC IN BACK. Diverticular disease with diverticulosis, BPH, [place] X2, unknown dates. lft leg weakness post cva (NO ASSISTED DEVICES). SHINGLES IN LEFT EYE. 03/19 cardiac stents Last Myocardial Infarction Date:: UNK History of Any Multi-Drug Resistant Organisms: None Reported Past Surgical History: Adenoidectomy, Heart Catheterization With Stent, Joint Replacement, Tonsillectomy Additional Past Surgical History / Comment(s): Chato KNEE REPLACMENT. Colonoscopy with polypectomy, epidural steroid injections. carotid stents- Past Anesthesia/Blood Transfusion Reactions: No Reported Reaction Date of Last Stent Placement:: UNK Past Psychological History: No Psychological Hx Reported Smoking Status: Former smoker Past Alcohol Use History: Rare Past Drug Use History: None Reported - Past Family History Sister(s) Family Medical History: Cancer Additional Family Medical History / Comment(s): Pancreatic cancer. Father History Unknown: Yes Family Medical History: Cancer Mother History Unknown: Yes Family Medical History: Congestive Heart Failure (CHF) Additional Family Medical History / Comment(s): AT AGE 94. Medications and Allergies Home Medications Medication Instructions Recorded Confirmed Type Terazosin HCl 5 mg PO HS 06/02/15 05/16/23 History Nitroglycerin Sl Tabs [Nitrostat] 0.4 mg SUBLINGUAL Q5M PRN #25 tab 06/04/15 05/16/23 Rx Tamsulosin [Flomax] 0.4 mg PO HS 03/20/20 05/16/23 History Atorvastatin [Lipitor] 40 mg PO HS #30 tab 11/21/22 05/16/23 Rx Aspirin 81 mg PO DAILY tab 03/22/23 05/16/23 Rx Ticagrelor [Brilinta] 90 mg PO BID #180 tab 03/22/23 05/16/23 Rx Furosemide [Lasix] 40 mg PO DAILY 30 Days #30 tab 04/07/23 05/16/23 Rx Gabapentin [Neurontin] 200 mg PO BID 04/25/23 05/16/23 History Potassium Chloride ER [K-Dur 10] 10 meq PO DAILY 04/25/23 05/16/23 History carvediloL [Coreg*] 12.5 mg PO DAILY 04/25/23 05/16/23 History Empagliflozin [Jardiance] 10 mg PO DAILY 05/16/23 05/16/23 History HYDROcodone/APAP 7.5-325MG [[place] 1 tab PO Q8H PRN 05/16/23 05/16/23 History 7.5-325] Allergies Allergy/AdvReac Type Severity Reaction Status Date / Time No Known Allergies Allergy Verified 05/16/23 08:54 Physical Exam Vitals: Vital Signs Temp Pulse Resp BP Pulse Ox 05/16/23 16:00 97 18 139/81 97 05/16/23 15:29 92 16 153/101 05/16/23 12:36 97.4 F L 92 22 149/102 92 L 05/16/23 07:11 98.2 F 106 H 24 131/97 93 L Intake and Output 05/16/23 05/16/23 05/16/23 06:59 14:59 22:59 Other: Weight 84.595 kg PHYSICAL EXAMINATION: Patient is lying in the bed comfortably, no acute distress, awake alert and oriented.. HEENT: Normocephalic. Neck is supple. Pupils reactive. Nostrils clear. Oral cavity is moist. Neck reveals no JVD, carotid bruits, or thyromegaly. CHEST EXAMINATION: Trachea is central. Symmetrical expansion. Bibasilar coarse sounds. Nonlabored breathing.. CARDIAC: Normal S1, S2 with no gallops. No murmurs ABDOMEN: Soft. Bowel sounds present. Nontender. No organomegaly. No abdominal bruits. Extremities: Bilateral lower extremity trace edema. No clubbing or cyanosis Neurologically awake, alert, oriented x3 with well-coordinated movements. No focal deficits noted Skin: No rash or skin lesions. Psychiatric: Coperative. Nonsuicidal, Musculoskeletal: No joint swelling or deformity. Normal range of motion. Results CBC & Chem 7: 05/16/23 07:18 05/16/23 07:18 Labs: Abnormal Lab Results - Last 24 Hours (Table) 05/16/23 05/16/23 05/16/23 Range/Units 07:15 07:18 07:18 RBC 3.74 L (4.30-5.90) m/uL Hgb 11.1 L (13.0-17.5) gm/dL Hct 32.7 L (39.0-53.0) % Sodium 135 L (137-145) mmol/L Potassium 3.3 L (3.5-5.1) mmol/L Carbon Dioxide 19 L (22-30) mmol/L BUN 48 H (9-20) mg/dL Creatinine 2.34 H (0.66-1.25) mg/dL Glucose 116 H (74-99) mg/dL POC Glucose (mg/dL) 122 H (70-110) mg/dL Magnesium 2.4 H (1.6-2.3) mg/dL Troponin I (0.000-0.034) ng/mL 05/16/23 05/16/23 Range/Units 07:18 13:17 RBC (4.30-5.90) m/uL Hgb (13.0-17.5) gm/dL Hct (39.0-53.0) % Sodium (137-145) mmol/L Potassium (3.5-5.1) mmol/L Carbon Dioxide (22-30) mmol/L BUN (9-20) mg/dL Creatinine (0.66-1.25) mg/dL Glucose (74-99) mg/dL POC Glucose (mg/dL) (70-110) mg/dL Magnesium (1.6-2.3) mg/dL Troponin I 0.085 H* 0.149 H* (0.000-0.034) ng/mL Thrombosis Risk Factor Assmnt - DVT/VTE Prophylaxis DVT/VTE Prophylaxis: Pharmacologic Prophylaxis ordered Assessment and Plan Assessment: Acute on chronic CHF with systolic dysfunction. Ejection fraction 25 to 30%. Acute kidney injury with creatinine level 2.34 and baseline 1.14. Possible cardiorenal. Acute hypoxic respiratory failure requiring 100% nonrebreather on admission and currently at 2 L via nasal cannula. Ischemic cardiomyopathy Multivessel coronary artery disease status post recent stenting of major diagonal branch of LAD with MARC and proximal and mid LAD with drug-eluting stents. Not a candidate for bypass graft as per CT surgery. Hypertension Hyperlipidemia History of DE Osteoarthritis Prior history of smoking and history of right carotid artery revascularization with stenting Hypokalemia GI and DVT prophylaxis with PPI and heparin subcu. Plan: Patient will be continued on telemonitoring. Continue with oxygen supplementation. Continue with IV diuresis with Lasix and monitor renal function. Ultrasound renal to rule out obstruction. Continue with aspirin, Coreg and statins. Replace electrolytes. Cardiology was consulted and follow-up closely. Prognosis is guarded at this time. Time with Patient: Greater than 30
[2023-05-16] MEDS: HEPARIN SODIUM,PORCINE 5,000 UNIT/ML 1 ML VIAL SQ SCH (23:32)
--- NOTE | 2023-05-17 01:01 | XR ---
EXAM: XR Chest, 1 View CLINICAL HISTORY: ITS.REASON XR Reason: Resp distress TECHNIQUE: Frontal view of the chest. COMPARISON: No relevant prior studies available. FINDINGS: Lungs: Dependent consolidations, likely atelectasis versus mild pneumonia. Correlate clinically. Emphysema. Pleural space: Trace bilateral pleural effusions. No pneumothorax. Heart: Cardiomegaly. Mediastinum: Unremarkable. Normal mediastinal contour. Bones/joints: Unremarkable. No acute fracture. Vasculature: Calcified aorta. IMPRESSION: 1. Dependent consolidations, likely atelectasis versus mild pneumonia. Correlate clinically. 2. Trace bilateral pleural effusions.
[2023-05-17] MEDS ORDERED: carvediloL 6.25 MG TAB PO SCH ×2 (07:30→17:30)
--- NOTE | 2023-05-17 07:39 | CA ---
Transthoracic Echo Report Name: Ba Sanchez Age: 82 Gender: M : 1940 Exam Date: 05/16/2023 16:02 Exam Location: [facility] Ht (in): 70 Wt (lb): 186 Ordering Physician: Malachi Carmichael DO Attending/Referring Phys: [id number], [employer] Sarah Ayala RDCS Procedure CPT: Indications: Heart failure Cardiac Hx: Technical Quality: Technically difficult study Contrast 1: Definity Total Dose (mL): 2 Contrast 2: Total Dose (mL): MEASUREMENTS (Male / Female) Normal Values 2D ECHO LV Diastolic Diameter PLAX 4.9 cm 4.2 - 5.9 / 3.9 - 5.3 cm LV Systolic Diameter PLAX 5.3 cm IVS Diastolic Thickness 1.6 cm 0.6 - 1.0 / 0.6 - 0.9 cm LVPW Diastolic Thickness 1.2 cm 0.6 - 1.0 / 0.6 - 0.9 cm LV Relative Wall Thickness 0.6 LV Diastolic Volume MOD BP 166.9 cm??? 67 - 155 / 56 - 104 cm??? LV Systolic Volume MOD BP 117.9 cm??? 22 - 58 / 19 - 49 cm??? LV Ejection Fraction MOD BP 29.4 % >= 55 % LV Cardiac Index MOD BP 2935.4 cm???/min???m??? LV Diastolic Volume MOD 4C 198.9 cm??? LV Systolic Volume MOD 4C 135.2 cm??? LV Ejection Fraction MOD 4C 32.0 % LV Cardiac Index MOD 4C 3811.7 cm???/min???m??? LV Diastolic Length 4C 9.6 cm LV Systolic Length 4C 8.3 cm LV Diastolic Volume MOD 2C 124.7 cm??? LV Systolic Volume MOD 2C 94.0 cm??? LV Ejection Fraction MOD 2C 24.6 % LV Cardiac Index MOD 2C 1840.4 cm???/min???m??? LV Diastolic Length 2C 8.5 cm LV Systolic Length 2C 7.6 cm LA Volume 98.9 cm??? 18 - 58 / 22 - 52 cm??? LA Volume Index 48.1 cm???/m??? 16 - 28 cm???/m??? DOPPLER AV Peak Velocity 83.8 cm/s AV Peak Gradient 2.8 mmHg AV Mean Velocity 63.2 cm/s AV Mean Gradient 1.7 mmHg AV Velocity Time Integral 12.5 cm LVOT Peak Velocity 58.1 cm/s LVOT Peak Gradient 1.3 mmHg LVOT Velocity Time Integral 10.6 cm MV Area PHT 5.0 cm??? Mitral E Point Velocity 78.6 cm/s Mitral A Point Velocity 2.0 cm/s Mitral E to A Ratio 38.8 MV Deceleration Time 152.1 ms TR Peak Velocity 321.2 cm/s TR Peak Gradient 41.3 mmHg Right Ventricular Systolic Press 46.3 mmHg FINDINGS Left Ventricle Moderately increased left ventricular wall thickness. Severely increased left ventricular systolic volume. Severely decreased left ventricular ejection fraction. Left ventricular ejection fraction is estimated at 20-25 %. Severe global hypokinesis with anteroapical and anteroseptal akinesis Right Ventricle Normal right ventricular size. Mild pulmonary hypertension. Right Atrium Normal right atrial size. Left Atrium Severely increased left atrial volume. Mildly increased left atrial area. Mitral Valve Structurally normal mitral valve. Moderate mitral annular calcification. Mild- to-moderate mitral regurgitation. Aortic Valve Aortic valve not well visualized. Tricuspid Valve Mild to moderate tricuspid regurgitation.structurally normal tricuspid valve. Pulmonic Valve Pulmonic valve not well visualized. Pericardium No pericardial effusion. Aorta Normal size aortic root and proximal ascending aorta. CONCLUSIONS Technically difficult study. Definity ECHO contrast used for improved visualization of the endocardial borders (inadequate visualization of two or more contiguous segments). Severely impaired left ventricular systolic function with segmental wall motion study Mild to moderate and tricuspid regurgitation with mild pulmonary hypertension Previewed by: Dr. Damaris Adams MD (Electronically Signed) Final Date: 17 May 2023 07:39
--- NOTE | 2023-05-17 08:34 | US ---
EXAMINATION TYPE: US kidneys/renal and bladder DATE OF EXAM: 05/17/2023 COMPARISON: 04/25/2023. CLINICAL INDICATION: Male, 82 years old with history of CATRACHITO; CATRACHITO EXAM MEASUREMENTS: Right Kidney: 11.4 x 4.5 x 4.7 cm Left Kidney: 10.6 x 4.2 x 3.7 cm Right Kidney: anechoic lesions noted, largest = 1.6 x 1.6 x 1.8cm lower pole Left Kidney: anechoic lesions noted, largest = 3.8 x 2.5 x 3.6cm Bladder: Potts Catheter There is no evidence for hydronephrosis at this point in time. No nephrolithiasis is seen. No ovi s are identified. The urinary bladder is anechoic. Bilateral ureteral jets are seen. IMPRESSION: 1. No evidence for acute process. 2. Bilateral simple renal cysts.
[2023-05-17] MEDS ORDERED: FUROSEMIDE 10 MG/ML 10 ML VIAL IV STA (09:12)
[2023-05-17] MEDS: GABAPENTIN 100 MG CAP PO SCH ×2 (09:21→21:59)
[2023-05-17] MEDS: TICAGRELOR 90 MG TAB PO SCH ×2 (09:21→21:59)
[2023-05-17] MEDS: HEPARIN SODIUM,PORCINE 5,000 UNIT/ML 1 ML VIAL SQ SCH ×2 (09:21→15:40)
[2023-05-17] MEDS: ASPIRIN 81 MG PO SCH (09:21)
[2023-05-17] MEDS: POTASSIUM CHLORIDE ER 20 MEQ TAB.ER PO SCH (09:21)
[2023-05-17 09:39] LABS: Basophils % (A) 0 %; Eosinophils % (A) 0 %; HCT 32.1 % (39.0-53.0); HGB 10.7 gm/dL (13.0-17.5); Lymphocytes # (A) 1.4 k/uL (1.0-4.8); Lymphocytes % (A) 15 %; MCH 29.3 pg (25.0-35.0); MCHC 33.3 g/dL (31.0-37.0); Mean Platelet Volume 8.8; Monocytes # (A) 0.4 k/uL (0-1.0); Monocytes % (A) 5 %; Neutrophils # (A) 7.3 k/uL (1.3-7.7); Neutrophils % (A) 79 %; Platelet Count 174 k/uL (150-450); RBC 3.64 m/uL (4.30-5.90); RDW 13.8 % (11.5-15.5); WBC 9.2 k/uL (3.8-10.6)
--- NOTE | 2023-05-17 09:55 | CONS ---
CONSULTATION HISTORY OF PRESENT ILLNESS: This is an unfortunate 82-year-old gentleman who I have seen for nearly 2 decades. He has history of ischemic cardiomyopathy. He has had previous PCI of RCA and more recently a month or 2 ago underwent stenting of a very complex LAD and diagonal. The diagonal intervention resulted in somewhat sluggish flow, but LAD result was excellent. He was discharged home, but he continues to have poor LV function, ejection fraction in the 25% range with recurrent episodes of systolic heart failure. The patient also has chronic kidney disease with a creatinine in the range of 2.2 or so. He came in to the hospital with increasing shortness of breath, requiring more oxygen. His breathing is a lot better today. He has mild lower extremity edema, elevated BNP. I saw him this morning. He is resting comfortably with intravenous diuretics. His shortness of breath has improved, on 2 L of nasal cannula he is 98% today. He is feeling better, but he still complains of generalized weakness. I spent a lot of time with him and I will adjust his medications and see how he does. I am suggesting that I will increase the Lasix to 60 mg p.o. b.i.d. after 1 dose of IV Lasix this morning and increase the carvedilol to 12.5 mg in the morning, 6.25 mg in the evening. Even though his creatinine is elevated, I will use a small dose of losartan 12.5 mg at bedtime and hopefully Dr. Doty will not have any objection. PAST MEDICAL HISTORY: 1. Ischemic cardiomyopathy with multivessel intervention in the past, most recently a couple of months ago of LAD and diagonal. 2. Hypertension. 3. Hyperlipidemia. 4. History of CVA with carotid surgery. MEDICATIONS: At home include, 1. Flomax. 2. Atorvastatin. 3. Aspirin. 4. Brilinta. 5. Lasix 40 mg p.o. daily. 6. Potassium 10 mEq daily. 7. Carvedilol 6.25 mg b.i.d. 8. Jardiance 10 mg daily. 9. Watson. ALLERGIES: None. PHYSICAL EXAMINATION: VITAL SIGNS: Blood pressure is 118/70, pulse rate is about 90 per minute sinus with left bundle. HEENT: Unremarkable. Fundus was not examined by me. NECK: Supple, JVD 1 cm. No carotid bruit. HEART: Reveals S1, S2 with a short systolic murmur. LUNGS: Reveal improved air entry bilateral lung saini. ABDOMEN: Soft, nontender. EXTREMITIES: Lower extremity edema is almost resolved. NEUROLOGIC: Central nervous system grossly, no focal deficits, but there is generalized weakness. IMPRESSION: 1. Exacerbation of systolic heart failure. 2. Ischemic cardiomyopathy. 3. Hypertension. 4. History of CVA. RECOMMENDATIONS: I am recommending that we switch him to oral Lasix 60 mg p.o. b.i.d. after this morning IV dose of 60 mg. Coreg will be 12.5 mg in the morning, 6.25 in the evening and I will add losartan 12.5 mg at bedtime. Check CBC, BMP tomorrow and also we will request Physical Therapy to see him and increase activity in the room and see how he does. Prognosis remains guarded. Thank you very much for the consult. ORQUIDEA / WILIAM: [id number] /
[2023-05-17 09:57] LABS: African American GFR (CKD) 27 (>60 ml/min/1.73 sqM); Anion Gap 16 mmol/L; Blood Urea Nitrogen 50 mg/dL (9-20); Calcium 9.2 mg/dL (8.4-10.2); Carbon Dioxide 25 mmol/L (22-30); Chloride 98 mmol/L (98-107); Glucose 118 mg/dL (74-99); Non-African American GFR(CKD) 24 (>60 ml/min/1.73 sqM); Potassium 3.9 mmol/L (3.5-5.1); Sodium 139 mmol/L (137-145)
--- NOTE | 2023-05-17 12:15 | P.NPCON ---
History of Present Illness - Reason for Consult acute renal failure - History of Present Illness Patient is an 82-year-old male with history of coronary artery disease and ischemic cardiomyopathy with EF of 20 -25%. Patient is admitted to the hospital with complaints of shortness of breath. He had some swelling of his lower extremities. No history of fever No history of nausea vomiting or diarrhea. Pressure is not low Currently maintained on oral Lasix. Chest x-ray did not show significant pulmonary vascular congestion however small bilateral pleural effusions were noted. Serum creatinine was 2.3 on admission it increased to 2.4 today. Previous creatinine has been 1.7-2.2 mg/dL in March 2023. Prior to that creatinine was 1.14 on 03/22/2023. Patient had significant urine retention with 2 L of urine obtained on Potts catheter placement. Review of Systems As per HPI Past Medical History Past Medical History: Coronary Artery Disease (CAD), Heart Failure, CVA/TIA, GERD/Reflux, Hyperlipidemia, Hypertension, Myocardial Infarction (AK), Musculoskeletal Disorder, Osteoarthritis (OA), Prostate Disorder, Skin Disorder, Thyroid Disorder Additional Past Medical History / Comment(s): Lumbar disc disease, HERNIATED DISC IN BACK. Diverticular disease with diverticulosis, BPH, AK X2, unknown dates. lft leg weakness post cva (NO ASSISTED DEVICES). SHINGLES IN LEFT EYE. 03/19 cardiac stents Last Myocardial Infarction Date:: UNK History of Any Multi-Drug Resistant Organisms: None Reported Past Surgical History: Adenoidectomy, Heart Catheterization With Stent, Joint Replacement, Tonsillectomy Additional Past Surgical History / Comment(s): Chato KNEE REPLACMENT. Colonoscopy with polypectomy, epidural steroid injections. carotid stents- Past Anesthesia/Blood Transfusion Reactions: No Reported Reaction Date of Last Stent Placement:: UNK Past Psychological History: No Psychological Hx Reported Smoking Status: Former smoker Past Alcohol Use History: Rare Past Drug Use History: None Reported - Past Family History Sister(s) Family Medical History: Cancer Additional Family Medical History / Comment(s): Pancreatic cancer. Father History Unknown: Yes Family Medical History: Cancer Mother History Unknown: Yes Family Medical History: Congestive Heart Failure (CHF) Additional Family Medical History / Comment(s): AT AGE 94. Medications and Allergies Home Medications Medication Instructions Recorded Confirmed Type Terazosin HCl 5 mg PO HS 06/02/15 05/16/23 History Nitroglycerin Sl Tabs [Nitrostat] 0.4 mg SUBLINGUAL Q5M PRN #25 tab 06/04/15 05/16/23 Rx Tamsulosin [Flomax] 0.4 mg PO HS 03/20/20 05/16/23 History Atorvastatin [Lipitor] 40 mg PO HS #30 tab 11/21/22 05/16/23 Rx Aspirin 81 mg PO DAILY tab 03/22/23 05/16/23 Rx Ticagrelor [Brilinta] 90 mg PO BID #180 tab 03/22/23 05/16/23 Rx Furosemide [Lasix] 40 mg PO DAILY 30 Days #30 tab 04/07/23 05/16/23 Rx Gabapentin [Neurontin] 200 mg PO BID 04/25/23 05/16/23 History Potassium Chloride ER [K-Dur 10] 10 meq PO DAILY 04/25/23 05/16/23 History carvediloL [Coreg*] 12.5 mg PO DAILY 04/25/23 05/16/23 History Empagliflozin [Jardiance] 10 mg PO DAILY 05/16/23 05/16/23 History HYDROcodone/APAP 7.5-325MG [Ingalls 1 tab PO Q8H PRN 05/16/23 05/16/23 History 7.5-325] Allergies Allergy/AdvReac Type Severity Reaction Status Date / Time No Known Allergies Allergy Verified 05/16/23 08:54 Physical Exam Vitals: Vital Signs Temp Pulse Pulse Resp BP BP Pulse Ox 05/17/23 11:46 90 18 127/81 98 05/17/23 08:00 97.8 F 85 20 129/81 96 05/17/23 04:00 98.1 F 91 20 112/77 97 05/17/23 02:00 113 H 20 05/17/23 00:00 97.8 F 91 20 143/95 96 05/16/23 23:31 110 H 05/16/23 23:30 96.9 F L 108 H 21 140/103 97 05/16/23 23:25 110 H 05/16/23 22:01 152 H 34 H 110/85 93 L 05/16/23 21:16 134 H 30 H 173/119 95 05/16/23 20:37 135 H 30 H 157/116 92 L 05/16/23 16:00 97 18 139/81 97 05/16/23 15:29 92 16 153/101 05/16/23 13:01 97.8 F 112 H 20 143/95 96 05/16/23 12:36 97.4 F L 92 22 149/102 92 L Intake and Output 05/16/23 05/17/23 05/17/23 22:59 06:59 14:59 Intake Total 480 Output Total 1999 675 Balance -1999 Intake: Oral 480 Output: Urine 19995 Other: Voiding Method Indwelling Catheter Indwelling Catheter Weight 78.9 kg On examination patient is awake, comfortable, no acute distress Alert oriented 3 Examination of the heart S1 and S2 Examination of the lungs shows decreased breath sounds at the bases Abdomen is soft nontender Examination lower extremities shows trace edema ENVIRONMENTAL PROTECTION SPECIALIST exam grossly intact Results - Lab Results Most recent lab results ABG pH 7.41 (7.35-7.45) 05/16/23 22:35 ABG pCO2 36 mmHg (35-45) 05/16/23 22:35 ABG pO2 77 mmHg (83-108) L 05/16/23 22:35 ABG HCO3 23 mmol/L (21-25) 05/16/23 22:35 ABG O2 Saturation 96.0 % (94-97) 05/16/23 22:35 Calcium 9.2 mg/dL (8.4-10.2) 05/17/23 08:09 Phosphorus 4.3 mg/dL (2.5-4.5) 05/16/23 07:18 Magnesium 2.4 mg/dL (1.6-2.3) H 05/16/23 07:18 05/17/23 08:09 05/17/23 08:09 Assessment and Plan Assessment: 1. Acute kidney injury, mostly secondary to urine retention currently with indwelling Potts catheter. Possible component of cardiorenal syndrome as well. Check urine analysis. Ultrasound does not show any significant hydronephrosis however this was done after Potts catheter placement. 2. Cardiomyopathy with EF of 20-25%, ischemic 3. Acute on top of chronic systolic CHF currently improved 4. Anemia rule out iron deficiency 5. Chronic kidney disease stage IIIa with previous creatinine 1.1 on 03/22/2023 and episode of acute kidney injury noted in March most likely is associated with obstructive uropathy and urine retention. Plan: Continue with Potts catheter Okay to continue with low-dose losartan. Repeat labs in a.m. Accurate I's and O's Check iron profile Thank you for the consultation. We will continue to follow the patient with you during his hospitalization.
--- NOTE | 2023-05-17 12:41 | P.PN ---
Subjective Progress Note Date: 05/17/23 Patient is a 82-year-old male with a known history of ischemic cardiomyopathy with ejection fraction 25%, multivessel coronary artery disease s/p angioplasty of RCA and is also found to have significant disease involving LAD and diagonal with some moderate disease in the circumflex artery., Not a candidate for bypass graft transfer CT surgery, history of CVA/TIA, GERD, hypertension, hyperpnea, history AL, BPH, prior history of smoking presents to ER with complaints of worsening shortness of breath since morning. Patient's called EMS and was brought to ER. Patient was found to be hypoxic requiring oxygen via nasal cannula en route to ER. Patient otherwise denies any complaints of chest pain while in the ER. Denies any complaints of fever or chills. Denies any cough or sputum production. Patient does have minimal leg swelling. Chest x-ray on admission showed diffuse interstitial opacities are new. Opacities are more patchy and confluent at the lung bases and there is possible trace right effusion. Correlate for possible etiologies including infectious aspiration pneumonitis, COVID-pneumonia, interstitial pulmonary edema. EKG showed sinus tachycardia with short TX interval. Laboratory showed WBC 9.5 hemoglobin 11.1 and platelets 13.8 Sodium 135 potassium 3.3, chloride 101 bicarb is 19 BUN 48 and creatinine 2.34 and blood sugar 116 Troponin 0.085, 0.149 and 0.144 proBNP Influenza, RSV and COVID-19 PCR not detected. 05/17/2023 patient is seen in follow-up this morning with cardiology following as well as nephrology. Patient came in with significant shortness of breath currently weaning FiO2 as tolerated and down to 2 L and maintaining oxygen saturations ov er 95%. Discussed with nursing staff about evaluating for possible home O2 in the event patient will require it and given is a holiday weekend if patient were to be discharged will not be elbow leave if oxygen was arranged if requiring it. Patient does not normally wear oxygen outpatient. Patient also being followed by nephrology as kidney functions are trending up and patient was requiring ind welling Potts catheter for significant retention recommending to continue with indwelling Potts catheter. Patient has been transitioned oral Lasix from IV Lasix and low-dose losartan has been added by cardiology. Will follow-up with repeat labs in a.m. and continue to monitor kidney functions closely. Patient has been encouraged to increase activity as tolerated and walk frequently in the halls. Okay for compression stockings or Maxwell wraps to bilateral lower extremities and instructed the patient to elevate lower extremities while at rest. Review of systems: Constitutional: No reports of fatigue, fever, or chills Cardiovascular: No reports of chest pain or palpitations Respiratory: reports of shortness of breath with exertion although feels improved from when previously coming in GI: No reports of nausea, vomiting, or diarrhea : No reports of dysuria reported some retention requiring indwelling Potts catheter Neurovascular: No reports of weakness or numbness All medications have been reviewed PHYSICAL EXAMINATION: Patient is sitting up in the chair, awake alert and oriented.. Well-developed, well-nourished, elderly-appearing HEENT: Normocephalic. Neck is supple. Pupils reactive. Nostrils clear. Oral cavity is moist. Neck reveals no JVD, carotid bruits, or thyromegaly. CHEST EXAMINATION: Trachea is central. Symmetrical expansion. Bibasilar coarse sounds. Nonlabored breathing.. CARDIAC: S1, S2 are muffled ABDOMEN: Soft. Bowel sounds present. Nontender. No organomegaly. No abdominal bruits. Extremities: Bilateral lower extremity trace edema. No clubbing or cyanosis Neurologically awake, alert, oriented x3 with well-coordinated movements. No focal deficits noted Skin: No rash or skin lesions. Psychiatric: Cooperative. Non-suicidal, Musculoskeletal: No joint swelling or deformity. Normal range of motion. Assessment: Acute on chronic CHF with systolic dysfunction. Ejection fraction 25 to 30%. Acute kidney injury with creatinine level 2.34 and baseline 1.14. Possible cardiorenal. Acute hypoxic respiratory failure secondary to CHF exacerbation Ischemic cardiomyopathy Multivessel coronary artery disease status post recent stenting of major diago nal branch of LAD with MARC and proximal and mid LAD with drug-eluting stents. Not a candidate for bypass graft as per CT surgery. Chronic kidney disease stage IIIa Urinary retention requiring indwelling Potts catheter most likely secondary to obstructive uropathy as well as chronic kidney disease Hypertension Hyperlipidemia History of AL Osteoarthritis Prior history of smoking and history of right carotid artery revascularization with stenting Hypokalemia, improved GI and DVT prophylaxis with PPI and heparin subcu. No code Plan: Patient will be continued on telemetry monitoring with cardiology following. Patient has been transitioned oral Lasix given worsening kidney functions and nephrology has been consulted. Continue with oxygen supplementation and wean FiO2 as tolerated. Patient is down to 2 L maintaining oxygen saturations above 95%. Discussed with patient as well as nursing staff and case management in the event patient will require oxygen during this holiday weekend will obtain a home oxygen assessment to make arrangements if needed to do so for discharge. Encouraged continued weaning of FiO2 as tolerated Patient requiring indwelling Potts catheter for retention and has had good output will continue with indwelling Potts catheter per nephrology Continue with aspirin, Coreg and statins. Multiple medications being adjusted per cardiology recommending continued monitoring Due to multiple complex medical issues, prognosis is guarded The impression and plan of care has been dictated by Lexis Jennings, Nurse Practitioner as directed. Dr. Angelo MD I have performed a history and examination and MDM of this patient, discussed the same with the dictator, and agree with the dictator's assessment and plan as written ,documented as a scribe. Based on total visit time, I have performed more than 50% of the visit. Objective - Vital Signs Vital signs: Vital Signs Temp 98.1 F 05/17/23 04:00 Pulse 91 05/17/23 04:00 Resp 20 05/17/23 04:00 BP 112/77 05/17/23 04:00 Pulse Ox 97 05/17/23 04:00 FiO2 Intake & Output 05/16/23 05/17/23 05/17/23 18:59 06:59 18:59 Intake Total 240 Output Total 2000 Balance -1999 240 Weight 84.595 kg 78.9 kg Intake: Oral 240 Output: Urine 2000 Other: Voiding Method Indwelling Catheter - Labs CBC & Chem 7: 05/17/23 08:09 05/17/23 08:09 Labs: Abnormal Lab Results - Last 24 Hours (Table) 05/16/23 05/16/23 05/16/23 Range/Units 13:17 15:57 22:35 RBC (4.30-5.90) m/uL Hgb (13.0-17.5) gm/dL Hct (39.0-53.0) % D-Dimer (<0.60) mg/L FEU ABG pO2 77 L (83-108) mmHg BUN (9-20) mg/dL Creatinine (0.66-1.25) mg/dL Glucose (74-99) mg/dL Troponin I 0.149 H* 0.144 H* (0.000-0.034) ng/mL 05/16/23 05/17/23 05/17/23 Range/Units 23:54 08:09 08:09 RBC 3.64 L (4.30-5.90) m/uL Hgb 10.7 L (13.0-17.5) gm/dL Hct 32.1 L (39.0-53.0) % D-Dimer 1.86 H (<0.60) mg/L FEU ABG pO2 (83-108) mmHg BUN 50 H (9-20) mg/dL Creatinine 2.43 H (0.66-1.25) mg/dL Glucose 118 H (74-99) mg/dL Troponin I (0.000-0.034) ng/mL
[2023-05-17 13:10] LABS: Appearance,Urine Clear (Clear); Bacteria,Urine Rare /hpf; Bilirubin,Urine Negative (Negative); Blood,Urine Large (Negative); Color,Urine Colorless; Glucose,Urine (UA) 2+ (Negative); Hyaline Casts,Urine 4 /lpf (0-2); Ketones,Urine Negative (Negative); Leukocyte Esterase,Urine Moderate (Negative); Mucus,Urine Rare /hpf; Nitrite,Urine Negative (Negative); Protein,Urine Trace (Negative); RBC,Urine 88 /hpf (0-5); Specific Gravity,Urine 1.009 (1.001-1.035); Squamous Epithelial Cell,Urine <1 /hpf (0-4); Urobilinogen,Urine <2.0 mg/dL (<2.0); WBC,Urine 22 /hpf (0-5)
[2023-05-17 14:16] VITALS: BMI 24.9
[2023-05-17] MEDS: FUROSEMIDE 20 MG TAB PO SCH (15:40)
--- NOTE | 2023-05-17 18:34 | NM ---
EXAMINATION TYPE: NM pul vent and perfuse DATE OF EXAM: 05/17/2023 CLINICAL INDICATION: Male, 82 years old with history of shortness of breath, Elevated D-dimer, CATRACHITO; Comparison: 05/16/2023 radiograph TECHNIQUE: Utilizing inhalation of 69.0 mCi Tc 99m DTPA aerosol and intravenous injection of 5.2 mCi of Tc 99m MAA, ventilation and perfusion images are acquired post injection in multiple projections. FINDINGS: Heterogeneity of ventilation and perfusion throughout the lungs. No mismatch perfusion defect is iden tified. Small amount of clumping of tracer within the central airways. Some contamination is indicate d along the peripheral aspect of the right upper lung by the technologist. IMPRESSION: 1. Very low probability for pulmonary embolus. 2. Some findings which may be seen in the setting of COPD.
[2023-05-17] MEDS: DOXAZOSIN 4 MG TAB PO SCH (21:59)
[2023-05-17] MEDS: TAMSULOSIN 0.4 MG CAP.ER.24H PO SCH (21:59)
[2023-05-17] MEDS: LOSARTAN 25 MG TAB PO SCH (21:59)
[2023-05-17] MEDS: ATORVASTATIN 40 MG TAB PO SCH (21:59)
[2023-05-18] MEDS: HEPARIN SODIUM,PORCINE 5,000 UNIT/ML 1 ML VIAL SQ SCH ×4 (00:10→23:47)
[2023-05-18] MEDS ORDERED: carvediloL 12.5 MG TAB PO SCH (09:00)
[2023-05-18 09:12] VITALS: TEMP 97.5
[2023-05-18] MEDS: carvediloL 6.25 MG TAB PO SCH ×2 (09:27→17:07)
[2023-05-18] MEDS: FUROSEMIDE 20 MG TAB PO SCH (09:27)
[2023-05-18] MEDS: POTASSIUM CHLORIDE ER 20 MEQ TAB.ER PO SCH (09:27)
[2023-05-18] MEDS: GABAPENTIN 100 MG CAP PO SCH ×2 (09:27→19:45)
[2023-05-18] MEDS: TICAGRELOR 90 MG TAB PO SCH ×2 (09:27→19:46)
[2023-05-18] MEDS: ASPIRIN 81 MG PO SCH (09:27)
--- NOTE | 2023-05-18 10:54 | P.PN ---
Subjective Patient is seen for follow-up for acute kidney injury. Mostly obstructive uropathy, currently with indwelling Potts catheter. No significant complaints today. Maintained on oral Lasix Blood pressure is on the lower side with systolic in the 92-93 range and Coreg dose will be decreased further. 24-hour urine output at 1.9 L Objective - Vital Signs Vital signs: Vital Signs Temp 97.5 F L 05/18/23 08:00 Pulse 71 05/18/23 08:00 Resp 17 05/18/23 08:00 BP 93/49 05/18/23 08:00 Pulse Ox 97 05/18/23 08:51 FiO2 Intake & Output 05/17/23 05/18/23 05/18/23 18:59 06:59 18:59 Intake Total 830 240 Output Total 1050 850 Balance -220 -610 Weight 78.9 kg Intake: Oral 830 240 Output: Urine 1050 850 Other: Voiding Method Indwelling Catheter Indwelling Catheter - Exam On examination patient is awake, comfortable, no acute distress Alert oriented 3 Examination of the heart S1 and S2 Examination of the lungs shows decreased breath sounds at the bases Abdomen is soft nontender Examination lower extremities shows trace edema CASTING COORDINATOR exam grossly intact - Labs CBC & Chem 7: 05/17/23 08:09 05/17/23 08:09 Labs: Abnormal Lab Results - Last 24 Hours (Table) 05/17/23 Range/Units 12:57 Urine Protein Trace H (Negative) Urine Glucose (UA) 2+ H (Negative) Urine Blood Large H (Negative) Ur Leukocyte Esterase Moderate H (Negative) Urine RBC 88 H (0-5) /hpf Urine WBC 22 H (0-5) /hpf Urine WBC Clumps Occasional H (None) /hpf Urine Bacteria Rare H (None) /hpf Hyaline Casts 4 H (0-2) /lpf Urine Mucus Rare H (None) /hpf Assessment and Plan Assessment: 1. Acute kidney injury, mostly secondary to urine retention currently with indwelling Potts catheter. Possible component of cardiorenal syndrome as well. Check urine analysis. Ultrasound does not show any significant hydronephrosis however this was done after Potts catheter placement. 2. Cardiomyopathy with EF of 20-25%, ischemic 3. Acute on top of chronic systolic CHF currently improved 4. Anemia rule out iron deficiency 5. Chronic kidney disease stage IIIa with previous creatinine 1.1 on 03/22/2023 and episode of acute kidney injury noted in March most likely is associated with obstructive uropathy and urine retention. Plan: Continue with Potts catheter Okay to continue with low-dose losartan but with parameters to hold for systolic blood pressure less than 110 mmHg. Decrease Coreg as blood pressure remains quite low Check labs today Accurate I's and O's
[2023-05-18 13:53] LABS: African American GFR (CKD) 23 (>60 ml/min/1.73 sqM); Anion Gap 15 mmol/L; Blood Urea Nitrogen 56 mg/dL (9-20); Calcium 8.5 mg/dL (8.4-10.2); Carbon Dioxide 22 mmol/L (22-30); Chloride 96 mmol/L (98-107); Glucose 126 mg/dL (74-99); Non-African American GFR(CKD) 20 (>60 ml/min/1.73 sqM); Potassium 3.7 mmol/L (3.5-5.1); Sodium 133 mmol/L (137-145)
--- NOTE | 2023-05-18 15:39 | P.PN ---
Subjective Progress Note Date: 05/18/23 The patient is an 82-year-old male who follows in the office with Dr. RIK Ritter. Patient presented to the hospital with worsening shortness of breath and has subsequently been treated for heart failure. The patient had an elevation of creatinine level in early March. No renal or bladder obstruction noted on ultrasound of the abdomen. The patient states he still has shortness of breath but it is slowly improving. He states he is a little weak and tired but is able to ambulate with a rolling walker. No current chest pain. He does report having dizziness and lightheadedness with standing. GENERAL: Well-appearing, well-nourished and in no acute distress. NECK: Supple without JVD or thyromegaly. LUNGS: Breath sounds diminished to auscultation bilaterally. Respiration equal and unlabored. No wheezes, rales or rhonchi. HEART: Regular rate and rhythm without murmurs, rubs or gallops. S1 and S2 heard. EXTREMITIES: Normal range of motion, no edema. No clubbing or cyanosis. Peripheral pulses intact and strong. TELEMETRY: Sinus rhythm IMPRESSION: Coronary artery disease with recent PCI of RCA Congestive heart failure, systolic Ischemic cardiomyopathy, EF 25% Acute on chronic kidney injury, post coronary intervention Enlarged prostate PLAN: Reduce doxazosin to avoid orthostatic hypotension Reduce furosemide Continue cardiomyopathy medications Encourage ambulation Further recommendations based on clinical course I am dictating on behalf of Dr Tristin Roe's history/physical and assessment/plan. Objective - Vital Signs Vital signs: Vital Signs Temp 97.5 F L 05/18/23 08:00 Pulse 69 05/18/23 14:00 Resp 17 05/18/23 14:00 BP 87/53 05/18/23 12:00 Pulse Ox 96 05/18/23 12:00 FiO2 Intake & Output 05/17/23 05/18/23 05/18/23 18:59 06:59 18:59 Intake Total 830 240 120 Output Total 1050 850 Balance -220 -610 120 Weight 78.9 kg 80.7 kg Intake: Oral 830 240 120 Output: Urine 1050 850 Other: Voiding Method Indwelling Catheter Indwelling Catheter Indwelling Catheter - Labs CBC & Chem 7: 05/17/23 08:09 05/18/23 12:48 Labs: Abnormal Lab Results - Last 24 Hours (Table) 05/18/23 Range/Units 12:48 Sodium 133 L (137-145) mmol/L Chloride 96 L (98-107) mmol/L BUN 56 H (9-20) mg/dL Creatinine 2.77 H (0.66-1.25) mg/dL Glucose 126 H (74-99) mg/dL
[2023-05-18] MEDS: FUROSEMIDE 40 MG TAB PO SCH (17:07)
[2023-05-18] MEDS: TAMSULOSIN 0.4 MG CAP.ER.24H PO SCH (19:45)
[2023-05-18] MEDS: ATORVASTATIN 40 MG TAB PO SCH (19:45)
[2023-05-18] MEDS: LOSARTAN 25 MG TAB PO SCH (19:45)
[2023-05-18] MEDS ORDERED: DOXAZOSIN 2 MG TAB PO SCH (21:00)
[2023-05-18 21:27] VITALS: RESP 16
--- NOTE | 2023-05-18 22:14 | PN ---
PROGRESS NOTE DATE OF SERVICE: 05/18/2023 SUBJECTIVE: This is an 82-year-old gentleman, who was admitted with CHF acute exacerbation, ejection fraction 25% to 30%, is on p.o. Lasix at this time. No chest pain. No palpitations. No fever. OBJECTIVE: VITAL SIGNS: Pulse is 69, blood pressure 87/53, respirations 17. CHEST: A few scattered rhonchi. ABDOMEN: Soft. NERVOUS SYSTEM: Nonfocal. LABORATORY DATA: Reviewed. ASSESSMENT: 1. Congestive heart failure acute exacerbation with acute on chronic systolic dysfunction, ejection fraction 25% to 30%. 2. Acute kidney injury. 3. Acute hypoxic respiratory failure. 4. Ischemic cardiomyopathy. 5. Multiple medical issues. RECOMMENDATIONS: Recommend to continue current medications. Continue symptomatic treatment. Otherwise, we will continue with the current medications and monitor blood pressure closely. Repeat labs as well as repeat chest x-ray. Guarded prognosis. Further recommendations to follow. MMODL / IJN: [id number] /
[2023-05-19] MEDS: carvediloL 6.25 MG TAB PO SCH (06:23)
--- NOTE | 2023-05-19 07:54 | XR ---
EXAMINATION TYPE: XR chest 1V portable DATE OF EXAM: 05/19/2023 6:43 AM CLINICAL INDICATION:Male, 82 years old with history of chf; COMPARISON: Portable radiograph taken at 05/16/2023. TECHNIQUE: XR chest 1V portable Frontal view of the chest. FINDINGS: Lungs/Pleura: No evidence of focal consolidation or pneumothorax. Blunting of the costophrenic angles is present. Pulmonary vascularity: Pulmonary vascular congestion. Heart/mediastinum: Cardiomediastinal silhouette is unremarkable. Atherosclerotic calcifications are seen in the aorta. Musculoskeletal: No acute osseous pathology. IMPRESSION: Similar, Cardiomegaly, pulmonary vascular congestion and bilateral pleural effusions.
[2023-05-19 07:56] LABS: Basophils % (A) 0 %; Eosinophils # (A) 0.5 k/uL (0-0.7); Eosinophils % (A) 7 %; HCT 29.4 % (39.0-53.0); HGB 9.5 gm/dL (13.0-17.5); Lymphocytes # (A) 1.7 k/uL (1.0-4.8); Lymphocytes % (A) 25 %; MCH 28.3 pg (25.0-35.0); MCHC 32.1 g/dL (31.0-37.0); MCV 87.9 fL (80.0-100.0); Mean Platelet Volume 8.7; Monocytes # (A) 0.3 k/uL (0-1.0); Monocytes % (A) 5 %; Neutrophils # (A) 4.3 k/uL (1.3-7.7); Neutrophils % (A) 62 %; Platelet Count 176 k/uL (150-450); RBC 3.35 m/uL (4.30-5.90); RDW 13.9 % (11.5-15.5); WBC 6.9 k/uL (3.8-10.6)
[2023-05-19] MEDS: GABAPENTIN 100 MG CAP PO SCH (09:29)
[2023-05-19] MEDS: FUROSEMIDE 40 MG TAB PO SCH (09:29)
[2023-05-19] MEDS: TICAGRELOR 90 MG TAB PO SCH (09:29)
[2023-05-19] MEDS: ASPIRIN 81 MG PO SCH (09:29)
[2023-05-19] MEDS: HEPARIN SODIUM,PORCINE 5,000 UNIT/ML 1 ML VIAL SQ SCH (09:30)
[2023-05-19 11:00] VITALS: BP 96/51; PULSE 71
--- NOTE | 2023-05-19 11:12 | P.PN ---
Subjective Patient is seen for follow-up for acute kidney injury. Status post Potts catheter placement on initial admission, now removed.. No significant complaints today. Maintained on oral Lasix Blood pressure is on the lower side with systolic in the 92-93 range and Coreg was decreased further. 24-hour urine output at 1.9 L Patient wants to go home. Objective - Vital Signs Vital signs: Vital Signs Temp 97.5 F L 05/18/23 20:00 Pulse 71 05/19/23 08:00 Resp 16 05/19/23 08:00 BP 96/51 05/19/23 08:00 Pulse Ox 96 05/19/23 08:00 FiO2 Intake & Output 05/18/23 05/19/23 05/19/23 18:59 06:59 18:59 Intake Total 665 1080 240 Output Total 387 Balance 665 1080 -147 Weight 80.7 kg 80.8 kg Intake: Oral 665 1080 240 Output: Post Void Residual 387 Other: Voiding Method Indwelling Catheter Indwelling Catheter Indwelling Catheter - Exam On examination patient is awake, comfortable, no acute distress Alert oriented 3 Examination of the heart S1 and S2 Examination of the lungs shows decreased breath sounds at the bases Abdomen is soft nontender Examination lower extremities shows trace edema WELL TENDER exam grossly intact - Labs CBC & Chem 7: 05/19/23 07:14 05/18/23 12:48 Labs: Abnormal Lab Results - Last 24 Hours (Table) 05/18/23 05/19/23 Range/Units 12:48 07:14 RBC 3.35 L (4.30-5.90) m/uL Hgb 9.5 L (13.0-17.5) gm/dL Hct 29.4 L (39.0-53.0) % Sodium 133 L (137-145) mmol/L Chloride 96 L (98-107) mmol/L BUN 56 H (9-20) mg/dL Creatinine 2.77 H (0.66-1.25) mg/dL Glucose 126 H (74-99) mg/dL Assessment and Plan Assessment: 1. Acute kidney injury, cardiorenal syndrome and element of urine retention. UA shows trace protein WBCs 20 to large blood Ultrasound does not show any significant hydronephrosis however this was done after Potts catheter placement. 2. Cardiomyopathy with EF of 20-25%, ischemic 3. Acute on top of chronic systolic CHF currently improved 4. Anemia rule out iron deficiency 5. Chronic kidney disease stage IIIa with previous creatinine 1.1 on 03/22/2023 and episode of acute kidney injury noted in March most likely is associated with obstructive uropathy and urine retention. Plan: Check post void residual Follow-up on labs from today Agree with decreasing dose of diuretics. Patient can be discharged if renal function is not worse. May need to hold Coreg up on discharge as blood pressure remains low.
[2023-05-19 11:34] LABS: African American GFR (CKD) 22 (>60 ml/min/1.73 sqM); Anion Gap 12 mmol/L; Blood Urea Nitrogen 57 mg/dL (9-20); Calcium 8.3 mg/dL (8.4-10.2); Carbon Dioxide 22 mmol/L (22-30); Chloride 98 mmol/L (98-107); Glucose 96 mg/dL (74-99); Non-African American GFR(CKD) 19 (>60 ml/min/1.73 sqM); Potassium 3.2 mmol/L (3.5-5.1); Sodium 132 mmol/L (137-145)
--- NOTE | 2023-05-19 12:26 | DS ---
DISCHARGE SUMMARY FINAL DIAGNOSES: 1. CHF acute exacerbation, acute on chronic systolic dysfunction, ejection fraction 25% to 30%. 2. Acute kidney injury. 3. Acute hypoxic respiratory failure. 4. Ischemic cardiomyopathy. 5. Multiple medical issues. DISCHARGE DISPOSITION: The patient will be discharged in stable condition. Guarded prognosis. Total time taken 35 minutes. HISTORY OF PRESENT ILLNESS: This 82-year-old gentleman with past medical history as mentioned, admitted with CHF acute exacerbation, the treatment is monitor, creatinine is stable at 2.77. RECOMMENDATIONS: Recommended to continue the diuretics and follow up with Nephrology and Cardiology in the outpatient setting after discharge. PHYSICAL EXAMINATION: VITALS: Stable. CARDIOVASCULAR: S1, S2 muffled. RESPIRATIONS: Few scattered rhonchi. ABDOMEN: Soft, nontender. DISCHARGE MEDICATIONS: 1. Coreg 6.25 mg b.i.d. 2. KCl 20 mEq p.o. daily. 3. Cozaar 12.5 mg q.h.s. 4. Lasix 40 mg p.o. b.i.d. Follow up with primary physician in 1-2 days. Follow up with Nephrology, Dr. Doty and Cardiology as recommended. MMODL / IJN: [id number] /
--- NOTE | 2023-05-19 12:52 | P.PN ---
Subjective Progress Note Date: 05/19/23 This is Lon Pritchard NP, I'm dictating on behalf of Dr. Roe's H&P and A&P. Patient was interviewed and examined. Patient's a pleasant 82-year-old male who presented to the hospital with worsening shortness of breath, and was found to be in congestive heart failure. Patient also has elevated creatinine. This morning the patient reports that he is feeling okay today. He does report some mild dizziness with standing and walking, but states is much improved from previously. Patient has been urin ating adequately per his own report. Patient had a reduction and oxytocin and furosemide yesterday, which does appear to helped his orthostatic hypotension. Blood pressure is more stable at this time. GENERAL: Well-appearing, well-nourished and in no acute distress. NECK: Supple without JVD or thyromegaly. LUNGS: Breath sounds clear to auscultation bilaterally. Respiration equal and unlabored. No wheezes, rales or rhonchi. HEART: Regular rate and rhythm without murmurs, rubs or gallops. S1 and S2 heard. EXTREMITIES: Normal range of motion, no edema. No clubbing or cyanosis. Peripheral pulses intact and strong. VITALS: Pulse 71, respirations 16, blood pressure 96/51, O2 saturation 96% on room air TELEMETRY: Sinus mechanism LABS: White count 6.9, hemoglobin 9.5, platelets 176, sodium 132, potassium 3.2, BUN 57, creatinine 2.85, calcium 8.3 IMPRESSION: 1. Coronary artery disease with recent PCI of RCA 2. Congestive heart failure, systolic 3. Ischemic cardiomyopathy, EF 25% 4. Acute on chronic kidney injury, post coronary intervention 5. Enlarged prostate PLAN: Continue Cardura. Continue Lasix as ordered. Patient may be discharged from a cardiology standpoint. Thank you for allowing us participate in the care of this patient. Objective - Vital Signs Vital signs: Vital Signs Temp 97.5 F L 05/18/23 20:00 Pulse 71 05/19/23 08:00 Resp 16 05/19/23 08:00 BP 96/51 05/19/23 08:00 Pulse Ox 96 05/19/23 08:00 FiO2 Intake & Output 05/18/23 05/19/23 05/19/23 18:59 06:59 18:59 Intake Total 665 1080 240 Output Total 387 Balance 665 5752 -447 Weight 80.7 kg 80.8 kg Intake: Oral 665 1080 240 Output: Post Void Residual 387 Other: Voiding Method Indwelling Catheter Indwelling Catheter Indwelling Catheter - Labs CBC & Chem 7: 05/19/23 07:14 05/19/23 07:14 Labs: Abnormal Lab Results - Last 24 Hours (Table) 05/18/23 05/19/23 05/19/23 Range/Units 12:48 07:14 07:14 RBC 3.35 L (4.30-5.90) m/uL Hgb 9.5 L (13.0-17.5) gm/dL Hct 29.4 L (39.0-53.0) % Sodium 133 L 132 L (137-145) mmol/L Potassium 3.2 L (3.5-5.1) mmol/L Chloride 96 L (98-107) mmol/L BUN 56 H 57 H (9-20) mg/dL Creatinine 2.77 H 2.85 H (0.66-1.25) mg/dL Glucose 126 H (74-99) mg/dL Calcium 8.3 L (8.4-10.2) mg/dL
== END 2023-05-19 13:07 | disposition home or self-care (01) | DRG 291 ==
LOC: EC 07:09 → 3SCARD 11:53
PROVIDERS: ADMIT Hospitalist; ATTEND Hospitalist
DX: I13.0 Hypertensive heart and chronic kidney disease with heart failure and stage 1 through stage 4 chronic kidney disease, or unspecified chronic kidney disease (principal); I50.23 Acute on chronic systolic (congestive) heart failure; J96.01 Acute respiratory failure with hypoxia; N17.9 Acute kidney failure, unspecified; I69.354 Hemiplegia and hemiparesis following cerebral infarction affecting left non-dominant side; N13.8 Other obstructive and reflux uropathy; Z20.822 Contact with and (suspected) exposure to COVID-19; N18.31 Chronic kidney disease, stage 3a; I95.1 Orthostatic hypotension; J44.9 Chronic obstructive pulmonary disease, unspecified; N40.1 Benign prostatic hyperplasia with lower urinary tract symptoms; I25.5 Ischemic cardiomyopathy; I25.10 Atherosclerotic heart disease of native coronary artery without angina pectoris; I25.2 Old myocardial infarction; E78.5 Hyperlipidemia, unspecified; E87.6 Hypokalemia; I08.1 Rheumatic disorders of both mitral and tricuspid valves; F41.9 Anxiety disorder, unspecified; R00.0 Tachycardia, unspecified; K57.30 Diverticulosis of large intestine without perforation or abscess without bleeding; M51.36 Other intervertebral disc degeneration, lumbar region; M19.90 Unspecified osteoarthritis, unspecified site; Z79.02 Long term (current) use of antithrombotics/antiplatelets; Z79.82 Long term (current) use of aspirin; Z79.84 Long term (current) use of oral hypoglycemic drugs; Z79.899 Other long term (current) drug therapy; Z82.49 Family history of ischemic heart disease and other diseases of the circulatory system; Z87.891 Personal history of nicotine dependence; Z95.5 Presence of coronary angioplasty implant and graft
CPT/HCPCS: 36415; 36600; 51702; 71045; 76770; 78582; 80048; 80053; 81001; 82805; 83605; 83735; 83880; 84100; 84145; 84484; 85025; 85379; 85610; 85730; 87636; 93005; 93306; 94760; 96361; 96374; 96375; 96376; 99291

== ENCOUNTER 2023-06-02 13:05 | Inpatient (IN) | payer MEDICARE, BC ==
--- NOTE | 2023-06-02 13:53 | ED ---
General Adult HPI - General Source: patient, EMS, RN notes reviewed, old records reviewed Mode of arrival: EMS Limitations: no limitations <Malachi Orourke - Last Filed: 06/02/23 15:38> <Javier Canchola - Last Filed: 06/02/23 20:09> - General Chief complaint: Abdominal Pain Stated complaint: Dizzy Time Seen by Provider: 06/02/23 13:10 - History of Present Illness Initial comments: This is an 82-year-old male who presents emergency Department complaining of constipation. Patient states his been 16 days since he's constipation. Patient states he was taking lactulose but hasn't helped and today took lactulose was making him gag so he had to stop taking it and he came to the emergency department to get some assistance. Patient denies any fever chills or cough per patient denies any back pain. Patient denies any dysuria hematuria urinary frequency. Patient denies any chest pain or difficulty breathing. patient is taking narcotics. (Malachi Orourke) - Related Data Home Medications Medication Instructions Recorded Confirmed Terazosin HCl 2 mg PO HS 06/02/15 05/18/23 Tamsulosin [Flomax] 0.4 mg PO HS 03/20/20 05/16/23 Gabapentin [Neurontin] 200 mg PO BID 04/25/23 05/16/23 Empagliflozin [Jardiance] 10 mg PO DAILY 05/16/23 05/16/23 HYDROcodone/APAP 7.5-325MG [Huddy 1 tab PO Q8H PRN 05/16/23 05/16/23 7.5-325] Previous Rx's Medication Instructions Recorded Nitroglycerin Sl Tabs [Nitrostat] 0.4 mg SUBLINGUAL Q5M PRN #25 tab 06/04/15 Atorvastatin [Lipitor] 40 mg PO HS #30 tab 11/21/22 Aspirin 81 mg PO DAILY tab 03/22/23 Ticagrelor [Brilinta] 90 mg PO BID #180 tab 03/22/23 Furosemide [Lasix] 40 mg PO BID@0900,1600 #60 tab 05/18/23 Losartan [Cozaar] 12.5 mg PO HS #30 tab 05/18/23 Potassium Chloride ER [K-Dur 20] 20 meq PO DAILY #30 tab 05/18/23 carvediloL [Coreg] 6.25 mg PO BID-W/MEALS #60 tab 05/18/23 Allergies Allergy/AdvReac Type Severity Reaction Status Date / Time No Known Allergies Allergy Verified 05/16/23 08:54 Review of Systems ROS Other: All systems not noted in ROS Statement are negative. <Malachi Orourke - Last Filed: 06/02/23 15:38> ROS Other: All systems not noted in ROS Statement are negative. <Javier Canchola - Last Filed: 06/02/23 20:09> ROS Statement: Those systems with pertinent positive or pertinent negative responses have been documented in the HPI. Past Medical History Past Medical History: Coronary Artery Disease (CAD), Heart Failure, CVA/TIA, GERD/Reflux, Hyperlipidemia, Hypertension, Myocardial Infarction ([place]), Musculoskeletal Disorder, Osteoarthritis (OA), Prostate Disorder, Skin Disorder, Thyroid Disorder Additional Past Medical History / Comment(s): Lumbar disc disease, HERNIATED DISC IN BACK. Diverticular disease with diverticulosis, BPH, [place] X2, unknown dates. lft leg weakness post cva (NO ASSISTED DEVICES). SHINGLES IN LEFT EYE. 03/19 cardiac stents Last Myocardial Infarction Date:: UNK History of Any Multi-Drug Resistant Organisms: None Reported Past Surgical History: Adenoidectomy, Heart Catheterization With Stent, Joint Replacement, Tonsillectomy Additional Past Surgical History / Comment(s): Chato KNEE REPLACMENT. Colonoscopy with polypectomy, epidural steroid injections. carotid stents- Past Anesthesia/Blood Transfusion Reactions: No Reported Reaction Date of Last Stent Placement:: UNK Past Psychological History: No Psychological Hx Reported Smoking Status: Former smoker Past Alcohol Use History: Rare Past Drug Use History: None Reported - Past Family History Sister(s) Family Medical History: Cancer Additional Family Medical History / Comment(s): Pancreatic cancer. Father History Unknown: Yes Family Medical History: Cancer Mother History Unknown: Yes Family Medical History: Congestive Heart Failure (CHF) Additional Family Medical History / Comment(s): AT AGE 94. <Malachi Orourke - Last Filed: 06/02/23 15:38> General Exam Limitations: no limitations <Malachi Orourke - Last Filed: 06/02/23 15:38> - General Exam Comments Initial Comments: GENERAL: Patient is well-developed and well-nourished. Patient is nontoxic and well- hydrated and is in mild distress. ENT: Neck is soft and supple. No significant lymphadenopathy is noted. Oropharynx is clear. Moist mucous membranes. Neck has full range of motion without eliciting any pain. EYES: The sclera were anicteric and conjunctiva were pink and moist. Extraocular movements were intact and pupils were equal round and reactive to light. Eyelids were unremarkable. PULMONARY: Unlabored respirations. Good breath sounds bilaterally. No audible rales rhonchi or wheezing was noted. CARDIOVASCULAR: There is a regular rate and rhythm without any murmurs gallops or rubs. ABDOMEN: Mild left-sided abdominal pain SKIN: Skin is clear with no lesions or rashes and otherwise unremarkable. NEUROLOGIC: Patient is alert and oriented x3. Cranial nerves II through XII are grossly intact. Motor and sensory are also intact. Normal speech, volume and content. Symmetrical smile. MUSCULOSKELETAL: Normal extremities with adequate strength and full range of motion. LYMPHATICS: No significant lymphadenopathy is noted PSYCHIATRIC: Normal psychiatric evaluation. (Malachi Orourke) Course <Javier Canchola - Last Filed: 06/02/23 20:09> Vital Signs 06/02/23 06/02/23 13:08 19:04 Temperature 97.8 F 98.1 F Pulse Rate 96 72 Respiratory 18 18 Rate Blood Pressure 138/79 132/80 O2 Sat by Pulse 94 L 97 Oximetry - Reevaluation(s) Reevaluation #1: 06/02/23 16:41 The patient was endorsed to me at our shift change by Dr. Orourke pending bowel movement from medication. Thus far no medication the patient does complain of left lower quadrant pain 4/10 severity. There is tenderness on palpation over this area. Labs and a CT will be ordered. The patient is in agreement with this he denies any fevers chills sweats diarrhea he has been constipated for at least a week he states. This is happened to him before he does admit the study history of diverticulitis. (Javier Canchola) Medical Decision Making <Malachi Orourke - Last Filed: 06/02/23 15:38> - Lab Data Result diagrams: 06/02/23 16:56 06/02/23 16:56 <Javier Canchola - Last Filed: 06/02/23 20:09> - Medical Decision Making Was pt. sent in by a medical professional or institution ([facility], [facility], urgent care, hospital, or detention...) When possible be specific @ -[No] Did you speak to anyone other than the patient for history (EMS, parent, family, police, friend...)? What history was obtained from this source @ -[No] Did you review nursing and triage notes (agree or disagree)? Why? @ -[I reviewed and agree with nursing and triage notes] Were old charts reviewed (outside hosp., previous admission, EMS record, old E KG, old radiological studies, urgent care reports/EKG's, detention records)? Report findings @ -I reviewed prior to elaborate on this patient Differential Diagnosis (chest pain, altered mental status, abdominal pain women, abdominal pain men, vaginal bleeding, weakness, fever, dyspnea, syncope, headache, dizziness, GI bleed, back pain, seizure, CVA, palpatations, mental health, musculoskeletal)? @ -[not applicable] EKG interpreted by me (3pts min.). @ -[As above] X-rays interpreted by me (1pt min.). @ -To be shows moderate amount of constipation CT interpreted by me (1pt min.). @ -[None done] U/S interpreted by me (1pt. min.). @ -[None done] What testing was considered but not performed or refused? (CT, X-rays, U/S, labs)? Why? @ -[None] What meds were considered but not given or refused? Why? @ -[None] Did you discuss the management of the patient with other professionals (prof idaionals i.e. [facility], [facility], lab, RT, psych nurse, social science teacher, purchasing administrator, teacher, helicopter officer, correctional counselor/case manager)? Give summary @ -[No] Was smoking cessation discussed for >3mins.? @ -[No] Was critical care preformed (if so, how long)? @ -[No] Were there social determinants of health that impacted care today? How? (Homelessness, low income, unemployed, alcoholism, drug addiction, trans portation, low edu. Level, literacy, decrease access to med. care, long-term, rehab)? @ -[No] Was there de-escalation of care discussed even if they declined (Discuss DNR or withdrawal of care, Hospice)? DNR status @ -[No] What co-morbidities impacted this encounter? (DM, HTN, Smoking, COPD, CAD, Cancer, CVA, ARF, Chemo, Hep., AIDS, mental health diagnosis, sleep apnea, morbid obesity)? @ -[None] Was patient admitted / discharged? Hospital course, mention meds given and route, prescriptions, significant lab abnormalities, going to OR and other pertinent info. @ -Enema was attempted with milk and molasses and was unsuccessful. A second enema will be given with soapsuds. Patient will also be given GoLYTELY. Dr. Canchola will be taking over the care of the patient at 4 PM (Malachi Orourke) The patient was endorsed to me at our shift change pending evaluation after attempts at treating him and having him successfully have a bowel movement. He did not have one labs were obtained as well as a CAT scan the abdomen pelvis. Patient does have a history of renal insufficiencies IV contrast could not be used the CAT scan did show evidence of extensive diverticulosis he also had evidence of diverticulitis of the sigmoid colon. Additionally the patient started developing profound nausea and had 4 out of 10 right-sided abdominal pain. The case with soapy covering for Dr. Mccloud patient will be admitted place an IV antibiotics IV fluids. Was pt. sent in by a medical professional or institution (, [facility], [facility], urgent care, hospital, or detention...) hen possible be specific @ [Dr. Orourke at our shift change] Did you speak to anyone other than the patient for history (EMS, parent, family, police, friend...)? What history was otained from [facility] source @ -[Patient's ] Did you review nursing and triage notes (aree or disagree)? Why? @ -[I reviewed and agreewith nursing and triage notes] Were old charts reviewed (outside hosp., previous admission, EMS record, old EKG, old radiological studies, urgent care reports/EKG's, detention rcords)? Report findings @ -[Multiple preious old charts were reviewed] Differential Diagnosis (chest pain, altered mental status, abdominal pain women, abdominal pain men, vaginal bleeding, weakness, fever, dyspnea, syncope, headache, dizziness, GI bleed, back pain, seizure, CVA, palpatations, mental halth, musculoskeletal)? @ -[Abdominal pain constipation, diverticulitis] EKG interreted by me (pts min.). @ -[Not indicated] X-rays intepreted by me(1pt min.). @ -[Constipation] CT intepreted by me (1pt min.). @ -[CT abdomen pelvis noncontrast interpreted by me showed evidence of d iverticulitis as well as diverticulosis inspection of the sigmoid colon. No evidenc of perforation at this time.] U/S interreted by e (1pt. min.). @ -[None done] What testing was considered but not performed or refused? (CT,X-jeannine, U/S, labs)? Why? @ -[None] What meds were considered but nt gien or refused? Why? @ -[None] Did you discuss the management of the patient with other professionals (professionals i.e. , PA, [facility], lab, RT, psych nurse, social science teacher, purchasing administrator, teacher, helicopter officer, manager pest)? Give summary @ -Tess covering for Dr. Mccloud] Was smoking cessatin iscussed for >3mins.? @ -[No] Was critical care preored (if so, how long)? @ -[No] Were there social determinants of health that impacted care today? How? (Homelessness, low income, unemployed, alcoholism, drug addiction, transportation, low edu. Level, literacy, decrease access tome. care, long-term, rehab)? @ -[No] Was there de-escalation of care discussed even if they declined (Discuss DNR or withdrawal of cre Hospice)? DNR status @ -[No] What co-morbidities impacted this encounter? (DM, HTN, Smoking, COPD, CAD, Cancer, CVA, ARF, Chemo, Hep., AIDS, mental health diagnosis, slee apnea, morbid obesity)? @ -[Diverticulosis, history of diverticulitis, hitory of chronic renal disease] Was patient admitted / discharged? Hospital course, mention meds given and route, prescriptions, significant lab abnormalities, going to OR nd other pertinent info. @ -[hospital course patient was admitted for IV hydration treatment for diverticulitis with IV antibiotics also IV fluids nd control of nausea vomiting] Undiagnosed new problem it uncertain prognosis? @ -[No] Drug Therapy requiring intensive monitoring for toxicity (Heparin, Ntr, Insulin, Cardizem)? @ -[No] er any procedures done? @ -[No] Diagnosis/symptom? @ -[Acute diverticulitis, abdominal pain, nausea vomiting, dehyration, chronic renal failure] Acute, or Chroic, o Acute on Chronic? @ -[Acute] Uncomplicated (without systemic symptoms) or Complicted (systemc symptoms)? @ -[Complicated] Sdeeffects of treatment? @ -[No] Exacerbation, Progression o Severe Exacerbation? @ -[No] Poses a threat to life or bodily function? How? (Chest pain, [place], [place], pneumonia, PE, COPD, DKA, ARF, appy, cholecystitis, CVA, Diverticulitis, Homicidal, Suicidal, threat to staff... ad all critical care pts) @ -[Potential, diveticulitis with abdominal pain] (Javier Canchola) - Lab Data Lab Results 06/02/23 06/02/23 06/02/23 Range/Units 16:56 16:56 16:56 WBC 7.9 (3.8-10.6) k/uL RBC 3.95 L (4.30-5.90) m/uL Hgb 11.1 L (13.0-17.5) gm/dL Hct 33.2 L (39.0-53.0) % MCV 84.0 (80.0-100.0) fL MCH 28.1 (25.0-35.0) pg MCHC 33.4 (31.0-37.0) g/dL RDW 14.2 (11.5-15.5) % Plt Count 196 (150-450) k/uL MPV 8.7 Neutrophils % 75 % Lymphocytes % 19 % Monocytes % 4 % Eosinophils % 2 % Basophils % 0 % Neutrophils # 5.9 (1.3-7.7) k/uL Lymphocytes # 1.5 (1.0-4.8) k/uL Monocytes # 0.3 (0-1.0) k/uL Eosinophils # 0.1 (0-0.7) k/uL Basophils # 0.0 (0-0.2) k/uL Sodium 131 L (137-145) mmol/L Potassium 4.4 (3.5-5.1) mmol/L Chloride 96 L (98-107) mmol/L Carbon Dioxide 20 L (22-30) mmol/L Anion Gap 15 mmol/L BUN 54 H (9-20) mg/dL Creatinine 2.38 H (0.66-1.25) mg/dL Est GFR (CKD-EPI)AfAm 28 (>60 ml/min/1.73 sqM) Est GFR (CKD-EPI)NonAf 24 (>60 ml/min/1.73 sqM) Glucose 120 H (74-99) mg/dL Plasma Lactic Acid Hunter 1.3 (0.7-2.0) mmol/L Calcium 8.9 (8.4-10.2) mg/dL Total Bilirubin 1.0 (0.2-1.3) mg/dL AST 29 (17-59) U/L ALT 16 (4-49) U/L Alkaline Phosphatase 78 (38-126) U/L Creatine Kinase 24 L (55-170) U/L Total Protein 7.3 (6.3-8.2) g/dL Albumin 4.0 (3.5-5.0) g/dL Disposition <Malachi Orourke - Last Filed: 06/02/23 15:38> Decision Date: 06/02/23 Decision Time: 20:09 <Javier Canchola - Last Filed: 06/02/23 20:09> Clinical Impression: Acute diverticulitis of intestine, Intractable nausea and vomiting, Chronic renal failure (CRF), stage 3 (moderate), Dehydration, Acute abdominal pain Disposition: ADMITTED IP TO THIS HOSP Condition: Fair Referrals: Armen Adames MD [Primary Care Provider] - 1-2 days
--- NOTE | 2023-06-02 13:59 | XR ---
EXAMINATION TYPE: XR KUB DATE OF EXAM: 06/02/2023 Comparison: 04/25/2023 Clinical History: 82-year-old male Constipation Findings: Patchy bibasilar opacities. No evidence for free intraperitoneal air. No dilated small bowel or air-fluid levels. There is moderate stool seen throughout the abdomen and pelvis with air and stool extending distally to the rectum. S-shaped scoliosis lower thoracic and lumbar spine. Impression: 1. Patchy bibasilar opacities. Correlate for possible infectious or aspiration pneumonia. 2. No evidence for free air or bowel obstruction. 3. Moderate stool burden, possible constipation.
[2023-06-02] MEDS ORDERED: PEG 3350 (236 GM/BTL) + LYTES 4,000 ML BOTTLE PO ONE (15:32)
[2023-06-02 17:26] LABS: Basophils % (A) 0 %; Eosinophils # (A) 0.1 k/uL (0-0.7); Eosinophils % (A) 2 %; HCT 33.2 % (39.0-53.0); HGB 11.1 gm/dL (13.0-17.5); Lymphocytes # (A) 1.5 k/uL (1.0-4.8); Lymphocytes % (A) 19 %; MCH 28.1 pg (25.0-35.0); MCHC 33.4 g/dL (31.0-37.0); Mean Platelet Volume 8.7; Monocytes # (A) 0.3 k/uL (0-1.0); Monocytes % (A) 4 %; Neutrophils # (A) 5.9 k/uL (1.3-7.7); Neutrophils % (A) 75 %; Platelet Count 196 k/uL (150-450); RBC 3.95 m/uL (4.30-5.90); RDW 14.2 % (11.5-15.5); WBC 7.9 k/uL (3.8-10.6)
[2023-06-02 17:36] LABS: ALT 16 U/L (4-49); AST 29 U/L (17-59); African American GFR (CKD) 28 (>60 ml/min/1.73 sqM); Alkaline Phosphatase 78 U/L (38-126); Anion Gap 15 mmol/L; Blood Urea Nitrogen 54 mg/dL (9-20); Calcium 8.9 mg/dL (8.4-10.2); Carbon Dioxide 20 mmol/L (22-30); Chloride 96 mmol/L (98-107); Creatine Kinase 24 U/L (55-170); Glucose 120 mg/dL (74-99); Non-African American GFR(CKD) 24 (>60 ml/min/1.73 sqM); Sodium 131 mmol/L (137-145); Total Protein 7.3 g/dL (6.3-8.2)
[2023-06-02 17:49] LABS: Potassium 4.4 mmol/L (3.5-5.1)
--- NOTE | 2023-06-02 18:55 | CT ---
EXAMINATION TYPE: CT abdomen pelvis wo con DATE OF EXAM: 06/02/2023 COMPARISON: 04/25/2023 HISTORY: 82-year-old male LLQ abd pain. Hx of diverticulitis CT DLP: 599.9 mGycm. Automated exposure control for dose reduction was used. TECHNIQUE: Contiguous axial scanning of the abdomen and pelvis without IV contrast. Coronal and sagit fernando reconstructions performed. FINDINGS: Heart is borderline enlarged without pericardial effusion. Coronary artery calcifications are present . Prominent septal lines and patchy basilar opacities along with trace pleural effusions. Lobulated cyst left liver lobe measuring 5.7 cm. Smaller 1.3 cm right liver lobe cyst. Gallbladder hy dropic and 5.1 cm wide open without any surrounding inflammation. Adrenal glands, spleen, and pancreas are no gross abnormality. Redemonstrated bilateral renal cortical cysts measuring up to 3.7 cm. Scattered moderate atherosclerotic calcifications throughout the abdominal aorta. Mild aneurysm in th e abdominal aorta to 3.0 cm unchanged. Fusiform ectasia infrarenal abdominal aorta up to 2.9 cm. Poss ible severe focal stenosis proximal right common iliac artery and some mild poststenotic dilatation u p to 1.7 cm. No dilated small bowel, free fluid, or free air. Retroaortic left renal vein. No mesenteric or retro peritoneal adenopathy. Normal appendix. Mild to moderate stool burden. Left-sided colon diverticulosis, greatest in the sigm oid colon. There is circumferential wall thickening along the proximal to mid sigmoid colon with some mild pericolonic fat stranding in this region. Prominent distention of the urinary bladder. Prostate gland is enlarged at 5.8 cm wide. Pelvic phlebo lith. No abnormal fluid collection in the pelvis or pelvic lymphadenopathy. Bones: Degenerative levoconvex curvature mid to lower lumbar spine. Moderate degenerative change in b oth hips. IMPRESSION: 1. Trace bilateral pleural effusions with prominent septal lines and patchy opacity at the lung base s. Correlate for mild CHF versus patchy bibasilar infiltrates. 2. Left-sided colonic diverticulosis, extensive in the sigmoid colon. Exam positive for mild acute diverticulitis along the proximal to mid sigmoid colon. No abscess or free air. 3. 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 4. Prostatomegaly at 5.8 cm wide.
[2023-06-02] MEDS ORDERED: ONDANSETRON 4 MG/2 ML VIAL IVP STA (19:16)
[2023-06-02] MEDS ORDERED: PIPERACILLIN-TAZOBACTAM 3.375 GM in SODIUM CHLORIDE 0.9% 100 ML IVPB STA (20:02)
[2023-06-02] MEDS ORDERED: SODIUM CHLORIDE 0.9% 1,000 ML IV STA (20:02)
[2023-06-02] MEDS ORDERED: NALOXONE 0.4 MG/ML 1 ML VIAL IV PRN (20:09)
[2023-06-02] MEDS ORDERED: HYDROmorphone 1 MG/ML 1 ML SYRINGE IVP PRN (20:09)
[2023-06-02] MEDS ORDERED: ONDANSETRON 4 MG/2 ML VIAL IVP PRN (20:09)
[2023-06-02] MEDS ORDERED: NITROGLYCERIN SL TABS 0.4 MG TAB SUBLINGUAL PRN (20:11)
[2023-06-02] MEDS: SODIUM CHLORIDE 0.9% 1,000 ML IV SCH (20:18)
[2023-06-02] MEDS: TAMSULOSIN 0.4 MG CAP.ER.24H PO SCH (22:20)
[2023-06-02] MEDS: GABAPENTIN 100 MG CAP PO SCH (22:20)
[2023-06-02] MEDS: ATORVASTATIN 40 MG TAB PO SCH (22:20)
[2023-06-02] MEDS: TICAGRELOR 90 MG TAB PO SCH (22:22)
[2023-06-02] MEDS: DOXAZOSIN 2 MG TAB PO SCH (23:26)
[2023-06-03] MEDS: PIPERACILLIN-TAZOBACTAM 3.375 GM in SODIUM CHLORIDE 0.9% 100 ML IVPB SCH ×3 (05:04→21:18)
[2023-06-03] MEDS: SODIUM CHLORIDE 0.9% 1,000 ML IV SCH ×2 (05:04→11:45)
[2023-06-03] MEDS: carvediloL 6.25 MG TAB PO SCH ×2 (06:42→14:44)
[2023-06-03] MEDS: ASPIRIN 81 MG PO SCH (08:21)
[2023-06-03] MEDS: PANTOPRAZOLE 40 MG/10 ML VIAL IV SCH (08:21)
[2023-06-03] MEDS: GABAPENTIN 100 MG CAP PO SCH ×2 (08:21→21:18)
[2023-06-03] MEDS: POTASSIUM CHLORIDE ER 20 MEQ TAB.ER PO SCH (08:21)
[2023-06-03] MEDS: DAPAGLIFLOZIN PROPANEDIOL 5 MG TABLET PO SCH (08:22)
[2023-06-03] MEDS: TICAGRELOR 90 MG TAB PO SCH ×2 (08:22→21:18)
--- NOTE | 2023-06-03 08:57 | P.HPIM ---
History of Present Illness This is a pleasant 82 years old male with multiple medical problems presents with constipation for 4 days He has chronic left lower quadrant tenderness as he describes with nonspecific nonradiating pain, currently mild with mild tenderness on the rebound tenderness. He describes the patient has 2/10 in severity chronic 4 months, nonspecific nonradiating He had no vomiting, No urinary symptoms, no headache dizziness weakness or numbness He has history of stroke last October and his left side is weak chronically and he uses a walker at home He denies smoking alcohol or illicit drugs. His vitals looks stable Hemoglobin 11.1, rest of CBC is unremarkable Creatinine elevated to 0.3, it was less than 1 about 2 months ago since March and increased about 2-2-2.4 CT of the abdomen and pelvis show circumferential thickening of the proximal and mid sigmoid colon with mild pericolic fat stranding Currently he is on normal saline with 30 mL per hour, Zosyn and aspirin. Patient says that he has a bowel movement this morning Review of Systems Review of systems CONSTITUTIONAL: No fever, no malaise, no fatigue. HEENT: No recent visual problems or hearing problems. Denied any sore throat. CARDIOVASCULAR: No orthopnea, PND, no palpitations, no syncope. PULMONARY: No shortness of breath, no cough, no hemoptysis. GASTROINTESTINAL: No diarrhea, . Normoactive bowel sounds. NEUROLOGICAL: No headaches, no weakness, no numbness. HEMATOLOGICAL: Denies any bleeding or petechiae. GENITOURINARY: Denies any burning micturition, frequency, or urgency. MUSCULOSKELETAL/RHEUMATOLOGICAL: Denies any joint pain, swelling, or any muscle pain. ENDOCRINE: Denies any polyuria or polydipsia. Past Medical History Past Medical History: Coronary Artery Disease (CAD), Heart Failure, CVA/TIA, GERD/Reflux, Hyperlipidemia, Hypertension, Myocardial Infarction ([place]), Musculoskeletal Disorder, Osteoarthritis (OA), Prostate Disorder, Skin Disorder, Thyroid Disorder Additional Past Medical History / Comment(s): Lumbar disc disease, HERNIATED DISC IN BACK. Diverticular disease with diverticulosis, BPH, [place] X2, unknown da roseline. lft leg weakness post cva (NO ASSISTED DEVICES). SHINGLES IN LEFT EYE. 03/19 cardiac stents Last Myocardial Infarction Date:: 03/2023 History of Any Multi-Drug Resistant Organisms: None Reported Past Surgical History: Adenoidectomy, Heart Catheterization With Stent, Joint Replacement, Tonsillectomy Additional Past Surgical History / Comment(s): Chato KNEE REPLACMENT. Colonoscopy with polypectomy, epidural steroid injections. carotid stents-23 Past Anesthesia/Blood Transfusion Reactions: No Reported Reaction Date of Last Stent Placement:: UNK Past Psychological History: No Psychological Hx Reported Smoking Status: Former smoker Past Alcohol Use History: Rare Additional Past Alcohol Use History / Comment(s): Quit smoking in 1966. Past Drug Use History: None Reported - Past Family History Sister(s) Family Medical History: Cancer Additional Family Medical History / Comment(s): Pancreatic cancer. Father History Unknown: Yes Family Medical History: Cancer Mother History Unknown: Yes Family Medical History: Congestive Heart Failure (CHF) Additional Family Medical History / Comment(s): AT AGE 94. Medications and Allergies Home Medications Medication Instructions Recorded Confirmed Type Tamsulosin [Flomax] 0.4 mg PO HS 03/20/20 06/02/23 History Atorvastatin [Lipitor] 40 mg PO HS #30 tab 11/21/22 06/02/23 Rx Aspirin 81 mg PO DAILY tab 03/22/23 06/02/23 Rx Ticagrelor [Brilinta] 90 mg PO BID #180 tab 03/22/23 06/02/23 Rx Gabapentin [Neurontin] 200 mg PO BID 04/25/23 06/02/23 History Empagliflozin [Jardiance] 10 mg PO DAILY 05/16/23 06/02/23 History HYDROcodone/APAP 7.5-325MG [[place] 1 tab PO Q8H PRN 05/16/23 06/02/23 History 7.5-325] Furosemide [Lasix] 40 mg PO BID@0900,1600 #60 tab 05/18/23 06/02/23 Rx Potassium Chloride ER [K-Dur 20] 20 meq PO DAILY #30 tab 05/18/23 06/02/23 Rx carvediloL [Coreg] 6.25 mg PO BID-W/MEALS #60 tab 05/18/23 06/02/23 Rx Lactulose 10 gm PO DAILY PRN 06/02/23 06/02/23 History Nitroglycerin Sl Tabs [Nitrostat] 0.4 mg SL Q5M PRN 06/02/23 06/02/23 History Terazosin [Hytrin] 2 mg PO HS 06/02/23 06/02/23 History Allergies Allergy/AdvReac Type Severity Reaction Status Date / Time No Known Allergies Allergy Verified 06/02/23 20:09 Physical Exam Vitals: Vital Signs Temp Pulse Pulse Resp BP BP Pulse Ox 06/03/23 08:26 79 16 106/67 94 L 06/03/23 06:23 98.7 F 80 16 113/73 93 L 06/03/23 02:00 97.7 F 93 21 126/79 95 06/02/23 22:13 13 06/02/23 20:55 97.9 F 96 16 114/73 97 06/02/23 19:04 98.1 F 72 18 132/80 97 06/02/23 13:08 97.8 F 96 18 138/79 94 L Intake and Output 06/02/23 06/03/23 06/03/23 22:59 06:59 14:59 Intake Total 1780 Balance 1780 Intake: Intake, IV Titration 1300 Amount Sodium Chloride 0.9% 1, 1300 000 ml @ 130 mls/hr IV . Q7H42M [facility] Rx#:[id number] Oral 480 Other: Voiding Method Toilet # Voids 3 # Bowel Movements 1 Weight 79.832 kg GENERAL: The patient is alert and oriented x3, not in any acute distress. Well developed, well nourished. HEENT: Pupils are round and equally reacting to light. EOMI. No scleral icterus. No conjunctival pallor. Normocephalic, atraumatic. No pharyngeal erythema. No thyromegaly. CARDIOVASCULAR: S1 and S2 present. No murmurs, rubs, or gallops. PULMONARY: Chest is clear to auscultation, no wheezing , no crackles. -ABDOMEN: Soft, mild LLQ tenderness, no rebound tenderness or guarding, nondistended, normoactive bowel sounds. No palpable organomegaly. MUSCULOSKELETAL: No joint swelling or deformity. EXTREMITIES: No cyanosis, clubbing, or pedal edema. NEUROLOGICAL: Gross neurological examination did not reveal any focal deficits. SKIN: No rashes. no petechiae. Results CBC & Chem 7: 06/02/23 16:56 06/02/23 16:56 Labs: Abnormal Lab Results - Last 24 Hours (Table) 06/02/23 06/02/23 06/02/23 Range/Units 16:56 16:56 16:56 RBC 3.95 L (4.30-5.90) m/uL Hgb 11.1 L (13.0-17.5) gm/dL Hct 33.2 L (39.0-53.0) % Sodium 131 L (137-145) mmol/L Chloride 96 L (98-107) mmol/L Carbon Dioxide 20 L (22-30) mmol/L BUN 54 H (9-20) mg/dL Creatinine 2.38 H (0.66-1.25) mg/dL Glucose 120 H (74-99) mg/dL Creatine Kinase 24 L (55-170) U/L Procalcitonin 0.10 H (0.02-0.09) ng/mL Thrombosis Risk Factor Assmnt - Choose All That Apply Any of the Below Risk Factors Present?: Yes Each Factor Represents 1 point: Obesity (BMI >25) Other Risk Factors: Yes Each Risk Factor Represents 3 Points: Age 75 years or older Thrombosis Risk Factor Assessment Total Risk Factor Score: 4 Thrombosis Risk Factor Assessment Level: Moderate Risk Assessment and Plan Assessment: Acute sigmoid colitis with possible diverticulitis, acute on chronic Left liver lobulated cyst 5.7 cm Chronic kidney disease stage IV with 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 surgery consult Nephrology consult Labs and medication were reviewed.. Continue same treatment. Continue with symptomatic treatment. Resume home medication. Monitor labs and vitals. DVT and GI prophylaxis. Further recommendations as per clinical course of the patient DVT prophylaxis: Subcutaneous heparin GI Prophylaxis: Pepcid PT/OT: Pending Prognosis is guarded
[2023-06-03] MEDS ORDERED: FAMOTIDINE 20 MG/2 ML VIAL IV SCH (09:00)
[2023-06-03] MEDS: FAMOTIDINE 20 MG/2 ML VIAL IV SCH (11:45)
[2023-06-03] MEDS: HEPARIN SODIUM,PORCINE 5,000 UNIT/ML 1 ML VIAL SQ SCH ×2 (11:45→21:18)
--- NOTE | 2023-06-03 12:28 | P.GSCN ---
History of Present Illness Consult date: 06/03/23 History of present illness: CHIEF COMPLAINT: Abdominal pain HISTORY OF PRESENT ILLNESS: This is a 82-year-old male who presents to the hospital with complaints of left lower quadrant abdominal pain and constipation. Patient reports his been several days since his last bowel movement. He had taken lactulose with no improvement. Patient does report a history of dive rticulitis. Patient reports he feels that he has flare up of the diverticulitis a couple times each month over the last several years. Patient does report that it usually goes when sewn and he has not required antibiotics. He did have a large bowel movement yesterday. Computed tomography scan of the abdomen and pelvis that showed mild diverticulitis of the sigmoid colon. He reports his last colonoscopy was about 10 years ago and reports having colon polyps. He does have a known history of cardiac stents that were placed in March 2023 and is on Brilenta. He denies any prior abdominal surgeries. 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 Diverticular disease with diverticulosis, BPH, [place] X2, PAST SURGICAL HISTORY: Adenoidectomy, Heart Catheterization With Stent, Joint Replacement, Tonsillectomy, Colonoscopy with polypectomy, MEDICATIONS: See below ALLERGIES: See below SOCIAL HISTORY: No illicit drug use. REVIEW OF SYSTEMS: CONSTITUTIONAL: Denies fever or chills. HEENT: Denies blurred vision, vision changes, or eye pain. Denies hemoptysis CARDIOVASCULAR: Denies chest pain or pressure. RESPIRATORY: No shortness of breath. GASTROINTESTINAL: See HPI for pertinent findings HEMATOLOGIC: Denies bleeding disorders. GENITOURINARY: Denies any blood in urine or increased urinary frequency. SKIN: Denies pruitis. Denies rash. PHYSICAL EXAM: VITAL SIGNS: Reviewed GENERAL: Well-developed in no acute distress. HEENT: No sclera icterus. Extraocular movements grossly intact. Moist buccal mucosa. Head is atraumatic, normocephalic. No nasal drainage. ABDOMEN: Soft. Obese. Nondistended. Tenderness with palpation to right lower quadrant. NEUROLOGIC: Alert and oriented. Cranial nerves II through XII grossly intact. LABORATORY DATA: WBC 7.9 HGB 11.1 Plt 196 Na 131 K 4.4 Cr 2.38 Lactic acid 1.3 IMAGING: CT scan abdomen and pelvis trace bilateral pleural effusions and patchy opacity at the lung bases. Correlate for mild CHF versus bibasilar infiltrates. Left- sided colonic diverticulosis, extensive in the sigmoid colon. Positive for mild acute diverticulitis along the proximal and mid sigmoid colon. No abscess or free air. Mid abdominal aortic aneurysm at 3 cm unchanged. 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 Prostamegaly at 5.8 cm. ASSESSMENT: 1. Acute sigmoid diverticulitis 2. Constipation PLAN: -Continue IV antibiotics -Continue clear liquids -Continue to monitor -Repeat CBC in AM Physician Television Production Assistant note has been reviewed by physician. Signing provider agrees with the documented findings, assessment, and plan of care. Past Medical History Past Medical History: Coronary Artery Disease (CAD), Heart Failure, CVA/TIA, GERD/Reflux, Hyperlipidemia, Hypertension, Myocardial Infarction ([place]), Musculos keletal Disorder, Osteoarthritis (OA), Prostate Disorder, Skin Disorder, Thyroid Disorder Additional Past Medical History / Comment(s): Lumbar disc disease, HERNIATED DISC IN BACK. Diverticular disease with diverticulosis, BPH, [place] X2, unknown dates. lft leg weakness post cva (NO ASSISTED DEVICES). SHINGLES IN LEFT EYE. 03/19 cardiac stents Last Myocardial Infarction Date:: 03/2023 History of Any Multi-Drug Resistant Organisms: None Reported Past Surgical History: Adenoidectomy, Heart Catheterization With Stent, Joint Replacement, Tonsillectomy Additional Past Surgical History / Comment(s): Chato KNEE REPLACMENT. Colonoscopy with polypectomy, epidural steroid injections. carotid stents-23 Past Anesthesia/Blood Transfusion Reactions: No Reported Reaction Date of Last Stent Placement:: UNK Past Psychological History: No Psychological Hx Reported Smoking Status: Former smoker Past Alcohol Use History: Rare Additional Past Alcohol Use History / Comment(s): Quit smoking in 1966. Past Drug Use History: None Reported - Past Family History Sister(s) Family Medical History: Cancer Additional Family Medical History / Comment(s): Pancreatic cancer. Father History Unknown: Yes Family Medical History: Cancer Mother History Unknown: Yes Family Medical History: Congestive Heart Failure (CHF) Additional Family Medical History / Comment(s): AT AGE 94. Medications and Allergies Home Medications Medication Instructions Recorded Confirmed Type Tamsulosin [Flomax] 0.4 mg PO HS 03/20/20 06/02/23 History Atorvastatin [Lipitor] 40 mg PO HS #30 tab 11/21/22 06/02/23 Rx Aspirin 81 mg PO DAILY tab 03/22/23 06/02/23 Rx Ticagrelor [Brilinta] 90 mg PO BID #180 tab 03/22/23 06/02/23 Rx Gabapentin [Neurontin] 200 mg PO BID 04/25/23 06/02/23 History Empagliflozin [Jardiance] 10 mg PO DAILY 05/16/23 06/02/23 History HYDROcodone/APAP 7.5-325MG [[place] 1 tab PO Q8H PRN 05/16/23 06/02/23 History 7.5-325] Furosemide [Lasix] 40 mg PO BID@0900,1600 #60 tab 05/18/23 06/02/23 Rx Potassium Chloride ER [K-Dur 20] 20 meq PO DAILY #30 tab 05/18/23 06/02/23 Rx carvediloL [Coreg] 6.25 mg PO BID-W/MEALS #60 tab 05/18/23 06/02/23 Rx Lactulose 10 gm PO DAILY PRN 06/02/23 06/02/23 History Nitroglycerin Sl Tabs [Nitrostat] 0.4 mg SL Q5M PRN 06/02/23 06/02/23 History Terazosin [Hytrin] 2 mg PO HS 06/02/23 06/02/23 History Allergies Allergy/AdvReac Type Severity Reaction Status Date / Time No Known Allergies Allergy Verified 06/02/23 20:09 Surgical - Exam Vital Signs Temp Pulse Resp BP Pulse Ox 97.8 F 96 18 138/79 94 L 06/02/23 13:08 06/02/23 13:08 06/02/23 13:08 06/02/23 13:08 06/02/23 13:08 Results - Labs 06/02/23 16:56 06/02/23 16:56 Abnormal Lab Results - Last 24 Hours (Table) 06/02/23 06/02/23 06/02/23 Range/Units 16:56 16:56 16:56 RBC 3.95 L (4.30-5.90) m/uL Hgb 11.1 L (13.0-17.5) gm/dL Hct 33.2 L (39.0-53.0) % Sodium 131 L (137-145) mmol/L Chloride 96 L (98-107) mmol/L Carbon Dioxide 20 L (22-30) mmol/L BUN 54 H (9-20) mg/dL Creatinine 2.38 H (0.66-1.25) mg/dL Glucose 120 H (74-99) mg/dL Creatine Kinase 24 L (55-170) U/L Procalcitonin 0.10 H (0.02-0.09) ng/mL Diabetes panel 06/02/23 Range/Units 16:56 Sodium 131 L (137-145) mmol/L Potassium 4.4 (3.5-5.1) mmol/L Chloride 96 L (98-107) mmol/L Carbon Dioxide 20 L (22-30) mmol/L BUN 54 H (9-20) mg/dL Creatinine 2.38 H (0.66-1.25) mg/dL Glucose 120 H (74-99) mg/dL Calcium 8.9 (8.4-10.2) mg/dL AST 29 (17-59) U/L ALT 16 (4-49) U/L Alkaline Phosphatase 78 (38-126) U/L Total Protein 7.3 (6.3-8.2) g/dL Albumin 4.0 (3.5-5.0) g/dL Calcium panel 06/02/23 Range/Units 16:56 Calcium 8.9 (8.4-10.2) mg/dL Albumin 4.0 (3.5-5.0) g/dL Pituitary panel 06/02/23 Range/Units 16:56 Sodium 131 L (137-145) mmol/L Potassium 4.4 (3.5-5.1) mmol/L Chloride 96 L (98-107) mmol/L Carbon Dioxide 20 L (22-30) mmol/L BUN 54 H (9-20) mg/dL Creatinine 2.38 H (0.66-1.25) mg/dL Glucose 120 H (74-99) mg/dL Calcium 8.9 (8.4-10.2) mg/dL Adrenal panel 06/02/23 Range/Units 16:56 Sodium 131 L (137-145) mmol/L Potassium 4.4 (3.5-5.1) mmol/L Chloride 96 L (98-107) mmol/L Carbon Dioxide 20 L (22-30) mmol/L BUN 54 H (9-20) mg/dL Creatinine 2.38 H (0.66-1.25) mg/dL Glucose 120 H (74-99) mg/dL Calcium 8.9 (8.4-10.2) mg/dL Total Bilirubin 1.0 (0.2-1.3) mg/dL AST 29 (17-59) U/L ALT 16 (4-49) U/L Alkaline Phosphatase 78 (38-126) U/L Total Protein 7.3 (6.3-8.2) g/dL Albumin 4.0 (3.5-5.0) g/dL
--- NOTE | 2023-06-03 12:41 | P.NPCON ---
History of Present Illness - Reason for Consult chronic renal failure - History of Present Illness Patient is an 82-year-old male with history of coronary artery disease, hypertension, CVA and chronic kidney disease NKF stage IV with serum creatinine staying at about 2.2 mg/dL since March 2023. Patient had ischemic cardiomyopathy with EF of 20-25%. History of significant urine retention of about 2 L during last hospitalization about 3 weeks ago. Serum creatinine had peaked at 2.8 mg/dL and is 2.38 this admission. Prior creatinine 2.2 on 04/06/2023 and 1.1 on 03/22/2023. Potts catheter was removed prior to discharge and patient was able to void with no urine retention noted prior to discharge. Admitted to the hospital this time with abdominal pain. No complaints of nausea or vomiting. No significant urinary symptoms. CT of the abdomen shows thickening in the proximal and mid sigmoid colon. No complaints of fever chest pains or shortness of breath. Blood pressure is on the lower side but lowest systolic blood pressure was 10 6 mmHg. Urine output not charted. Review of Systems As per HPI. 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 Diverticular disease with diverticulosis, BPH, [place] X2, unknown dates. lft leg weakness post cva (NO ASSISTED DEVICES). SHINGLES IN LEFT EYE. 1 cardiac stents Last Myocardial Infarction Date:: 03/2023 History of Any Multi-Drug Resistant Organisms: None Reported Past Surgical History: Adenoidectomy, Heart Catheterization With Stent, Joint Replacement, Tonsillectomy Additional Past Surgical History / Comment(s): Chato KNEE REPLACMENT. Colonoscopy with polypectomy, epidural steroid injections. carotid stents-23 Past Anesthesia/Blood Transfusion Reactions: No Reported Reaction Date of Last Stent Placement:: UNK Past Psychological History: No Psychological Hx Reported Smoking Status: Former smoker Past Alcohol Use History: Rare Additional Past Alcohol Use History / Comment(s): Quit smoking in 1966. Past Drug Use History: None Reported - Past Family History Sister(s) Family Medical History: Cancer Additional Family Medical History / Comment(s): Pancreatic cancer. Father History Unknown: Yes Family Medical History: Cancer Mother History Unknown: Yes Family Medical History: Congestive Heart Failure (CHF) Additional Family Medical History / Comment(s): AT AGE 94. Medications and Allergies Home Medications Medication Instructions Recorded Confirmed Type Tamsulosin [Flomax] 0.4 mg PO HS 03/20/20 06/02/23 History Atorvastatin [Lipitor] 40 mg PO HS #30 tab 11/21/22 06/02/23 Rx Aspirin 81 mg PO DAILY tab 03/22/23 06/02/23 Rx Ticagrelor [Brilinta] 90 mg PO BID #180 tab 03/22/23 06/02/23 Rx Gabapentin [Neurontin] 200 mg PO BID 04/25/23 06/02/23 History Empagliflozin [Jardiance] 10 mg PO DAILY 05/16/23 06/02/23 History HYDROcodone/APAP 7.5-325MG [[place] 1 tab PO Q8H PRN 05/16/23 06/02/23 History 7.5-325] Furosemide [Lasix] 40 mg PO BID@0900,1600 #60 tab 05/18/23 06/02/23 Rx Potassium Chloride ER [K-Dur 20] 20 meq PO DAILY #30 tab 05/18/23 06/02/23 Rx carvediloL [Coreg] 6.25 mg PO BID-W/MEALS #60 tab 05/18/23 06/02/23 Rx Lactulose 10 gm PO DAILY PRN 06/02/23 06/02/23 History Nitroglycerin Sl Tabs [Nitrostat] 0.4 mg SL Q5M PRN 06/02/23 06/02/23 History Terazosin [Hytrin] 2 mg PO HS 06/02/23 06/02/23 History Allergies Allergy/AdvReac Type Severity Reaction Status Date / Time No Known Allergies Allergy Verified 06/02/23 20:09 Physical Exam Vitals: Vital Signs Temp Pulse Pulse Resp BP BP Pulse Ox 06/03/23 08:26 79 16 106/67 94 L 06/03/23 06:23 98.7 F 80 16 113/73 93 L 06/03/23 02:00 97.7 F 93 21 126/79 95 06/02/23 22:13 13 06/02/23 20:55 97.9 F 96 16 114/73 97 06/02/23 19:04 98.1 F 72 18 132/80 97 06/02/23 13:08 97.8 F 96 18 138/79 94 L Intake and Output 06/02/23 06/03/23 06/03/23 22:59 06:59 14:59 Intake Total 1780 480 Balance 1780 480 Intake: Intake, IV Titration 1300 Amount Sodium Chloride 0.9% 1, 1300 000 ml @ 130 mls/hr IV . Q7H42M [facility] Rx#:[id number] Oral 480 480 Other: Voiding Method Toilet Toilet # Voids 3 # Bowel Movements 1 Weight 79.832 kg Patient is awake, comfortable, no acute distress Examination of the heart S1 and S2 Examination of the lungs bilateral breath sounds are heard Abdomen is soft nontender Examination of lower extremities shows no significant edema. MANAGER EQUITY exam grossly intact Results - Lab Results Most recent lab results Calcium 8.9 mg/dL (8.4-10.2) 06/02/23 16:56 06/02/23 16:56 06/02/23 16:56 Assessment and Plan Assessment: 1. Acute kidney injury from last admission about 3 weeks ago, at that time it was mostly urine retention and ATN associated with hypotension. Serum creatinine had peaked at 2.8 and it is down to 2.3 now. Continue with IV fluids and check post void residual volume. UA on 05/17/2023 showed trace protein and large blood but this was a Potts specimen. Computed tomography scan of the abd omen on 06/02/2023 does not show any obstructive uropathy. 2. Abdominal pain, most likely sigmoid colitis. Maintained on antibiotics and IV fluids. 3. CK D stage IV secondary to nephrosclerosis with episodes of acute kidney injury in March and April 2023 associated with hypotension and urine retention. 4. History of urine retention 5. Cardiomyopathy with EF of 20-25% Plan: Continue with IV fluids. Decrease rate of IV fluids. Check post void residual Repeat labs in a.m. DC Coreg if blood pressure remains low. Continue with farxiga. Next Thank you for the consultation. We will continue to follow the patient with you during his hospitalization.
[2023-06-03] MEDS: HYDROcodone/APAP 7.5-325MG 1 EACH TAB PO PRN ×2 (14:43→22:46)
[2023-06-03 21:13] LABS: Glucose,Whole Blood 125 mg/dL (70-110)
[2023-06-03] MEDS: TAMSULOSIN 0.4 MG CAP.ER.24H PO SCH (21:18)
[2023-06-03] MEDS: DOXAZOSIN 2 MG TAB PO SCH (21:18)
[2023-06-03] MEDS: ATORVASTATIN 40 MG TAB PO SCH (21:18)
[2023-06-03 22:54] VITALS: RESP 19
[2023-06-04] MEDS: PIPERACILLIN-TAZOBACTAM 3.375 GM in SODIUM CHLORIDE 0.9% 100 ML IVPB SCH ×2 (03:27→11:58)
[2023-06-04] MEDS: SODIUM CHLORIDE 0.9% 1,000 ML IV SCH (03:28)
[2023-06-04] MEDS: carvediloL 6.25 MG TAB PO SCH (06:16)
[2023-06-04 08:34] LABS: Basophils % (A) 0 %; Eosinophils # (A) 0.4 k/uL (0-0.7); Eosinophils % (A) 5 %; HGB 10.4 gm/dL (13.0-17.5); Hypochromasia Slight; Lymphocytes # (A) 1.5 k/uL (1.0-4.8); Lymphocytes % (A) 20 %; MCH 28.2 pg (25.0-35.0); MCHC 32.5 g/dL (31.0-37.0); Mean Platelet Volume 9.5; Monocytes # (A) 0.3 k/uL (0-1.0); Monocytes % (A) 5 %; Neutrophils # (A) 5.1 k/uL (1.3-7.7); Neutrophils % (A) 69 %; Platelet Count 182 k/uL (150-450); RBC 3.68 m/uL (4.30-5.90); RDW 13.9 % (11.5-15.5); WBC 7.4 k/uL (3.8-10.6)
[2023-06-04] MEDS: HEPARIN SODIUM,PORCINE 5,000 UNIT/ML 1 ML VIAL SQ SCH (08:41)
[2023-06-04] MEDS: FAMOTIDINE 20 MG/2 ML VIAL IV SCH (08:41)
[2023-06-04] MEDS: GABAPENTIN 100 MG CAP PO SCH (08:42)
[2023-06-04] MEDS: PANTOPRAZOLE 40 MG/10 ML VIAL IV SCH (08:42)
[2023-06-04] MEDS: DAPAGLIFLOZIN PROPANEDIOL 5 MG TABLET PO SCH (08:42)
[2023-06-04] MEDS: POTASSIUM CHLORIDE ER 20 MEQ TAB.ER PO SCH (08:42)
[2023-06-04] MEDS: ASPIRIN 81 MG PO SCH (08:42)
[2023-06-04] MEDS: TICAGRELOR 90 MG TAB PO SCH (08:43)
[2023-06-04 08:57] VITALS: TEMP 98
--- NOTE | 2023-06-04 11:56 | P.PN ---
Subjective Patient is seen for follow-up for chronic kidney disease. He is currently doing well. Patient is asking to go home. Denies abdominal pain today. Objective - Vital Signs Vital signs: Vital Signs Temp 98.0 F 06/04/23 08:44 Pulse 69 06/04/23 08:44 Resp 19 06/04/23 04:37 BP 106/68 06/04/23 08:44 Pulse Ox 95 06/04/23 08:44 FiO2 Intake & Output 06/03/23 06/04/23 06/04/23 18:59 06:59 18:59 Intake Total 1860 Output Total 300 Balance 1860 -300 Intake: Intake, IV Titration 900 Amount Piperacillin-Tazobactam 3 100 .375 gm In Sodium Chloride 0.9% 100 ml @ 25 mls/hr IVPB Q8H [facility] Rx#: [id number] Sodium Chloride 0.9% 1, 800 000 ml @ 60 mls/hr IV . [id number] [facility] Rx#:[id number] Oral 960 Output: Urine 300 Other: Voiding Method Toilet Toilet Toilet # Voids 2 - Exam Patient is awake, comfortable, no acute distress Examination of the heart S1 and S2 Examination of the lungs bilateral breath sounds are heard Abdomen is soft nontender Examination of lower extremities shows no significant edema. 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 Acute kidney injury from last admission about 3 weeks ago, at that time it was mostly urine retention and ATN associated with hypotension. Serum creatinine had peaked at 2.8 and it is down to 2.3 now. Continue with IV fluids and check post void residual volume. UA on 05/17/2023 showed trace protein and large blood but this was a Potts specimen. Computed tomography scan of the abdomen on 06/02/2023 does not show any obstructive uropathy. 2. Abdominal pain, most likely sigmoid colitis. Maintained on antibiotics and IV fluids. 3. CK D stage IV secondary to nephrosclerosis with episodes of acute kidney injury in March and April 2023 associated with hypotension and urine retention. 4. History of urine retention 5. Cardiomyopathy with EF of 20-25% Plan: DC IV fluids DC Coreg as blood pressure remains low. Continue with [email or web address].
[2023-06-04 12:12] LABS: African American GFR (CKD) 20 (>60 ml/min/1.73 sqM); Anion Gap 13 mmol/L; Blood Urea Nitrogen 50 mg/dL (9-20); Calcium 8.9 mg/dL (8.4-10.2); Carbon Dioxide 23 mmol/L (22-30); Chloride 98 mmol/L (98-107); Glucose 98 mg/dL (74-99); Non-African American GFR(CKD) 18 (>60 ml/min/1.73 sqM); Potassium 4.4 mmol/L (3.5-5.1); Sodium 134 mmol/L (137-145)
--- NOTE | 2023-06-04 13:23 | P.PN ---
Subjective Progress Note Date: 06/04/23 CHIEF COMPLAINT: Diverticulitis HISTORY OF PRESENT ILLNESS: Patient reports no abdominal pain. He tolerated the clear liquids. Denies any nausea or vomiting. Afebrile. White count remains normal at 7.4 Hgb 10.4 platelets 182 PHYSICAL EXAM: VITAL SIGNS: Reviewed. GENERAL: Well-developed in no acute distress. ABDOMEN: Soft. Nondistended. Nontender. NEUROLOGIC: Alert and oriented. Cranial nerves II through XII grossly intact. ASSESSMENT: 1. Acute mild sigmoid diverticulitis resolving PLAN: -Patient can be discharged from surgical standpoint -Recommend antibiotics at discharge -Recommend follow-up with Dr. harris in 1 week -Educated patient to be on a good bowel regimen and to avoid constipation Physician Food And Beverage Order Clerk note has been reviewed by physician. Signing provider agrees with the documented findings, assessment, and plan of care. Objective - Vital Signs Vital signs: Vital Signs Temp 98.0 F 06/04/23 08:44 Pulse 69 06/04/23 08:44 Resp 19 06/04/23 04:37 BP 106/68 06/04/23 08:44 Pulse Ox 95 06/04/23 08:44 FiO2 Intake & Output 06/03/23 06/04/23 06/04/23 18:59 06:59 18:59 Intake Total 1860 Output Total 300 Balance 1860 -300 Intake: Intake, IV Titration 900 Amount Piperacillin-Tazobactam 3 100 .375 gm In Sodium Chloride 0.9% 100 ml @ 25 mls/hr IVPB Q8H ROSEANNA Rx#: [id number] Sodium Chloride 0.9% 1, 800 000 ml @ 60 mls/hr IV . [id number] ROSEANNA Rx#:[id number] Oral 960 Output: Urine 300 Other: Voiding Method Toilet Toilet Toilet # Voids 2 - Labs CBC & Chem 7: 06/04/23 07:28 06/04/23 11:35 Labs: Abnormal Lab Results - Last 24 Hours (Table) 06/03/23 06/04/23 06/04/23 Range/Units 21:11 07:28 11:35 RBC 3.68 L (4.30-5.90) m/uL Hgb 10.4 L (13.0-17.5) gm/dL Hct 32.0 L (39.0-53.0) % Sodium 134 L (137-145) mmol/L BUN 50 H (9-20) mg/dL Creatinine 3.06 H (0.66-1.25) mg/dL POC Glucose (mg/dL) 125 H (70-110) mg/dL Microbiology - Last 24 Hours (Table) 06/02/23 17:11 Blood Culture - Preliminary Blood
[2023-06-04 14:42] VITALS: BP 116/77; PULSE 89
== END 2023-06-04 16:30 | disposition home or self-care (01) | DRG 392 ==
LOC: EC 13:05 → 1SOBS 20:13 → OBSVTOIN 06-04 06:51
PROVIDERS: ADMIT Hospitalist; ATTEND Hospitalist
DX: K57.32 Diverticulitis of large intestine without perforation or abscess without bleeding (principal); I13.0 Hypertensive heart and chronic kidney disease with heart failure and stage 1 through stage 4 chronic kidney disease, or unspecified chronic kidney disease; N17.9 Acute kidney failure, unspecified; N18.4 Chronic kidney disease, stage 4 (severe); K82.1 Hydrops of gallbladder; M51.36 Other intervertebral disc degeneration, lumbar region; E78.5 Hyperlipidemia, unspecified; E86.0 Dehydration; I50.9 Heart failure, unspecified; I25.10 Atherosclerotic heart disease of native coronary artery without angina pectoris; K21.9 Gastro-esophageal reflux disease without esophagitis; M19.90 Unspecified osteoarthritis, unspecified site; K76.89 Other specified diseases of liver; I25.2 Old myocardial infarction; I25.5 Ischemic cardiomyopathy; K59.00 Constipation, unspecified; I69.344 Monoplegia of lower limb following cerebral infarction affecting left non-dominant side; I70.8 Atherosclerosis of other arteries; K52.9 Noninfective gastroenteritis and colitis, unspecified; N40.1 Benign prostatic hyperplasia with lower urinary tract symptoms; R33.8 Other retention of urine; Z95.5 Presence of coronary angioplasty implant and graft; Z28.310 Unvaccinated for COVID-19; Z28.21 Immunization not carried out because of patient refusal; Z86.010 Personal history of colon polyps; Z96.653 Presence of artificial knee joint, bilateral; Z86.61 Personal history of infections of the central nervous system; Z79.82 Long term (current) use of aspirin; Z79.899 Other long term (current) drug therapy
CPT/HCPCS: 36415; 74018; 74176; 80048; 80053; 82550; 83605; 84145; 85025; 87040; 96365; 96375; 99285

== ENCOUNTER 2023-06-14 08:03 | Inpatient (IN) | payer MEDICARE, BC ==
[2023-06-14] MEDS ORDERED: ASPIRIN 81 MG PO STA (08:13)
--- NOTE | 2023-06-14 08:21 | ED ---
General Adult HPI - General Stated complaint: weakness Time Seen by Provider: 06/14/23 08:08 Source: patient, EMS, RN notes reviewed Mode of arrival: EMS Limitations: no limitations - History of Present Illness Initial comments: 83-year-old male presents emergency Department with chief complaint chest pain, weakness. Patient states started overnight. He states he has since had chest pain, dizziness. Patient was recently hospitalized for CHF, diverticulitis. Patient states he has 4 prior cardiac stents. Patient denies any shortness breath denies fevers chills cough like symptoms. Patient states he feels very weak all over from his chest discomfort. - Related Data Home Medications Medication Instructions Recorded Confirmed Tamsulosin [Flomax] 0.4 mg PO HS 03/20/20 06/14/23 Gabapentin [Neurontin] 200 mg PO BID 04/25/23 06/14/23 Empagliflozin [Jardiance] 10 mg PO DAILY 05/16/23 06/14/23 HYDROcodone/APAP 7.5-325MG [[place] 1 tab PO Q8H PRN 05/16/23 06/14/23 7.5-325] Lactulose 10 gm PO DAILY PRN 06/02/23 06/14/23 Nitroglycerin Sl Tabs [Nitrostat] 0.4 mg SL Q5M PRN 06/02/23 06/14/23 Previous Rx's Medication Instructions Recorded Atorvastatin [Lipitor] 40 mg PO HS #30 tab 11/21/22 Aspirin 81 mg PO DAILY tab 03/22/23 Ticagrelor [Brilinta] 90 mg PO BID #180 tab 03/22/23 Levofloxacin [Levaquin] 250 mg PO DAILY 10 Days #10 tablet 06/04/23 Omeprazole [PriLOSEC] 20 mg PO AC-BRKFST #30 cap 06/04/23 Terazosin [Hytrin] 1 mg PO HS #30 cap 06/04/23 carvediloL [Coreg] 3.125 mg PO BID #60 tablet 06/04/23 metroNIDAZOLE [Flagyl] 500 mg PO TID 10 Days #30 tab 06/04/23 Allergies Allergy/AdvReac Type Severity Reaction Status Date / Time No Known Allergies Allergy Verified 06/14/23 08:56 Review of Systems ROS Statement: Those systems with pertinent positive or pertinent negative responses have been documented in the HPI. ROS Other: All systems not noted in ROS Statement are negative. Past Medical History Past Medical History: Coronary Artery Disease (CAD), Heart Failure, CVA/TIA, GERD/Reflux, Hyperlipidemia, Hypertension, Myocardial Infarction ([place]), Musculoskeletal Disorder, Osteoarthritis (OA), Prostate Disorder, Skin Disorder, Thyroid Disorder Additional Past Medical History / Comment(s): Lumbar disc disease, HERNIATED DISC IN BACK. Diverticular disease with diverticulosis, BPH, [place] X2, unknown dates. lft leg weakness post cva (NO ASSISTED DEVICES). SHINGLES IN LEFT EYE. 03/19 cardiac stents Last Myocardial Infarction Date:: 03/2023 History of Any Multi-Drug Resistant Organisms: None Reported Past Surgical History: Adenoidectomy, Heart Catheterization With Stent, Joint Replacement, Tonsillectomy Additional Past Surgical History / Comment(s): Chato KNEE REPLACMENT. Colonoscopy with polypectomy, epidural steroid injections. carotid stents- Past Anesthesia/Blood Transfusion Reactions: No Reported Reaction Date of Last Stent Placement:: UNK Past Psychological History: No Psychological Hx Reported Smoking Status: Former smoker Past Alcohol Use History: Rare Additional Past Alcohol Use History / Comment(s): Quit smoking in 1966. Past Drug Use History: None Reported - Past Family History Sister(s) Family Medical History: Cancer Additional Family Medical History / Comment(s): Pancreatic cancer. Father History Unknown: Yes Family Medical History: Cancer Mother History Unknown: Yes Family Medical History: Congestive Heart Failure (CHF) Additional Family Medical History / Comment(s): AT AGE 94. General Exam Limitations: no limitations General appearance: alert, in no apparent distress Head exam: Present: atraumatic, normocephalic, normal inspection Eye exam: Present: normal appearance, PERRL, EOMI. Absent: scleral icterus, conjunctival injection, periorbital swelling ENT exam: Present: normal exam, normal oropharynx, mucous membranes moist Neck exam: Present: normal inspection, full ROM. Absent: tenderness, meningismus, lymphadenopathy Respiratory exam: Present: normal lung sounds bilaterally. Absent: respiratory distress, wheezes, rales, rhonchi, stridor Cardiovascular Exam: Present: regular rate, normal rhythm, normal heart sounds. Absent: systolic murmur, diastolic murmur, rubs, gallop, clicks GI/Abdominal exam: Present: soft, normal bowel sounds. Absent: distended, tenderness, guarding, rebound, rigid Neurological exam: Present: alert, oriented X3 Course Vital Signs 06/14/23 06/14/23 06/14/23 08:15 08:20 08:30 Temperature 97.7 F Pulse Rate 77 77 Respiratory 18 18 Rate Blood Pressure 113/73 O2 Sat by Pulse 98 96 96 Oximetry 06/14/23 06/14/23 06/14/23 08:40 08:50 09:00 Temperature Pulse Rate 79 80 76 Respiratory 17 17 19 Rate Blood Pressure O2 Sat by Pulse 96 96 88 L Oximetry 06/14/23 06/14/23 06/14/23 09:10 09:20 09:30 Temperature Pulse Rate 77 75 75 Respiratory 19 6 L 6 L Rate Blood Pressure 116/99 116/99 116/99 O2 Sat by Pulse 95 96 97 Oximetry 06/14/23 06/14/23 06/14/23 09:40 09:50 10:00 Temperature Pulse Rate 76 75 Respiratory Rate Blood Pressure 123/87 123/87 123/87 O2 Sat by Pulse 96 Oximetry 06/14/23 06/14/23 06/14/23 10:10 10:20 10:30 Temperature Pulse Rate 75 75 Respiratory Rate Blood Pressure 120/86 120/86 120/86 O2 Sat by Pulse 96 95 96 Oximetry 06/14/23 06/14/23 06/14/23 10:40 10:50 15:09 Temperature Pulse Rate 80 79 Respiratory 18 Rate Blood Pressure 118/79 118/79 126/86 O2 Sat by Pulse 95 96 93 L Oximetry EKG Findings - EKG Comments: EKG Findings:: EKG performed 8:41 sinus rhythm with a rate of 78 SD 137 QRS 172 QT status QTC 464/498 and noted left bundle - EKG Results: EKG: interpreted by ERMD Medical Decision Making - Medical Decision Making Was pt. sent in by a medical professional or institution (, PA, MANAGER PACKAGING, urgent care, hospital, or group home...) When possible be specific @ -No Did you speak to anyone other than the patient for history (EMS, parent, family, police, friend...)? What history was obtained from this source @ -No Did you review nursing and triage notes (agree or disagree)? Why? @ -I reviewed and agree with nursing and triage notes Were old charts reviewed (outside hosp., previous admission, EMS record, old EKG, old radiological studies, urgent care reports/EKG's, group home records)? Report findings @ -Reviewed prior laboratory studies, admission records Differential Diagnosis (chest pain, altered mental status, abdominal pain women, abdominal pain men, vaginal bleeding, weakness, fever, dyspnea, syncope, headache, dizziness, GI bleed, back pain, seizure, CVA, palpatations, mental health, musculoskeletal)? @ -ADifferential Chest Pain: Stable Angina, Unstable Angina, STEMI, NSTEMI Aortic Dissection, Pneumothorax, Musculoskeletal, Esophageal Spasm GERD, Cholecystitis, Pancreatitis, Zoster, this is not meant to be an all-inclusive list. EKG interpreted by me (3pts min.). @ -As above X-rays interpreted by me (1pt min.). @ -[Chest x-ray shows pulmonary edema, pleural effusions CT interpreted by me (1pt min.). @ -None done U/S interpreted by me (1pt. min.). @ -None done What testing was considered but not performed or refused? (CT, X-rays, U/S, labs)? Why? @ -None What meds were considered but not given or refused? Why? @ -None Did you discuss the management of the patient with other professionals (professionals i.e. , PA, MANAGER PACKAGING, lab, RT, psych nurse, social work lecturer, mail order sorter, teacher, interface control officer, director of casework department)? Give summary @ -EMH for admission secondary to elevated troponin, CHF exacerbation Was smoking cessation discussed for >3mins.? @ -No Was critical care preformed (if so, how long)? @ -No Were there social determinants of health that impacted care today? How? (Homelessness, low income, unemployed, alcoholism, drug addiction, transportation, low edu. Level, literacy, decrease access to med. care, long term, rehab)? @ -No Was there de-escalation of care discussed even if they declined (Discuss DNR or withdrawal of care, Hospice)? DNR status @ -No What co-morbidities impacted this encounter? (DM, HTN, Smoking, COPD, CAD, Cancer, CVA, ARF, Chemo, Hep., AIDS, mental health diagnosis, sleep apnea, morbid obesity)? @ -CHF, CAD Was patient admitted / discharged? Hospital course, mention meds given and route, prescriptions, significant lab abnormalities, going to OR and other pertinent info. @ -Admitted patient presented for chest pain, dyspnea patient has moderate hypokalemia which was replaced, patient does have elevated troponin may related to acute cardiac injury versus chronic renal disease patient does have home edema has not been on Lasix appropriately Undiagnosed new problem with uncertain prognosis? @ -No Drug Therapy requiring intensive monitoring for toxicity (Heparin, Nitro, Insulin, Cardizem)? @ -No Were any procedures done? @ -No Diagnosis/symptom? @ -Chest pain, dyspnea, CHF Acute, or Chronic, or Acute on Chronic? @ -Acute Uncomplicated (without systemic symptoms) or Complicated (systemic symptoms)? @ -[Complicated Side effects of treatment? @ -No Exacerbation, Progression, or Severe Exacerbation? @ -Exacerbation Poses a threat to life or bodily function? How? (Chest pain, [place], [place], pneumonia, PE, COPD, DKA, ARF, appy, cholecystitis, CVA, Diverticulitis, Homicidal, Suicidal, threat to staff... and all critical care pts) @ -[Yes, possible ACS - Lab Data Result diagrams: 06/14/23 08:19 06/14/23 12:48 Lab Results 06/14/23 06/14/23 06/14/23 Range/Units 08:19 08:19 08:19 WBC 8.1 (3.8-10.6) k/uL RBC 4.13 L (4.30-5.90) m/uL Hgb 11.6 L (13.0-17.5) gm/dL Hct 34.9 L (39.0-53.0) % MCV 84.5 (80.0-100.0) fL MCH 28.1 (25.0-35.0) pg MCHC 33.3 (31.0-37.0) g/dL RDW 14.9 (11.5-15.5) % Plt Count 156 (150-450) k/uL MPV 8.8 Neutrophils % 78 % Lymphocytes % 15 % Monocytes % 5 % Eosinophils % 1 % Basophils % 0 % Neutrophils # 6.3 (1.3-7.7) k/uL Lymphocytes # 1.2 (1.0-4.8) k/uL Monocytes # 0.4 (0-1.0) k/uL Eosinophils # 0.1 (0-0.7) k/uL Basophils # 0.0 (0-0.2) k/uL PT 11.2 (10.0-12.5) sec INR 1.0 (<1.2) APTT 25.5 (22.0-30.0) sec Sodium 134 L (137-145) mmol/L Potassium 2.8 L (3.5-5.1) mmol/L Chloride 98 (98-107) mmol/L Carbon Dioxide 24 (22-30) mmol/L Anion Gap 12 mmol/L BUN 40 H (9-20) mg/dL Creatinine 2.52 H (0.66-1.25) mg/dL Est GFR (CKD-EPI)AfAm 26 (>60 ml/min/1.73 sqM) Est GFR (CKD-EPI)NonAf 22 (>60 ml/min/1.73 sqM) Glucose 111 H (74-99) mg/dL Calcium 9.0 (8.4-10.2) mg/dL Magnesium 2.5 H (1.6-2.3) mg/dL Total Bilirubin 0.8 (0.2-1.3) mg/dL AST 26 (17-59) U/L ALT 15 (4-49) U/L Alkaline Phosphatase 77 (38-126) U/L Troponin I (0.000-0.034) ng/mL NT-Pro-B Natriuret Pep 51995 pg/mL Total Protein 6.7 (6.3-8.2) g/dL Albumin 3.8 (3.5-5.0) g/dL 06/14/23 Range/Units 08:19 WBC (3.8-10.6) k/uL RBC (4.30-5.90) m/uL Hgb (13.0-17.5) gm/dL Hct (39.0-53.0) % MCV (80.0-100.0) fL MCH (25.0-35.0) pg MCHC (31.0-37.0) g/dL RDW (11.5-15.5) % Plt Count (150-450) k/uL MPV Neutrophils % % Lymphocytes % % Monocytes % % Eosinophils % % Basophils % % Neutrophils # (1.3-7.7) k/uL Lymphocytes # (1.0-4.8) k/uL Monocytes # (0-1.0) k/uL Eosinophils # (0-0.7) k/uL Basophils # (0-0.2) k/uL PT (10.0-12.5) sec INR (<1.2) APTT (22.0-30.0) sec Sodium (137-145) mmol/L Potassium (3.5-5.1) mmol/L Chloride (98-107) mmol/L Carbon Dioxide (22-30) mmol/L Anion Gap mmol/L BUN (9-20) mg/dL Creatinine (0.66-1.25) mg/dL Est GFR (CKD-EPI)AfAm (>60 ml/min/1.73 sqM) Est GFR (CKD-EPI)NonAf (>60 ml/min/1.73 sqM) Glucose (74-99) mg/dL Calcium (8.4-10.2) mg/dL Magnesium (1.6-2.3) mg/dL Total Bilirubin (0.2-1.3) mg/dL AST (17-59) U/L ALT (4-49) U/L Alkaline Phosphatase (38-126) U/L Troponin I 0.066 H* (0.000-0.034) ng/mL NT-Pro-B Natriuret Pep pg/mL Total Protein (6.3-8.2) g/dL Albumin (3.5-5.0) g/dL Disposition Clinical Impression: CHF (congestive heart failure), Hypokalemia, Renal disease, Elevated troponin Disposition: ADMITTED IP TO THIS HOSP Condition: Fair Time of Disposition: 10:01
[2023-06-14 08:40] LABS: Basophils % (A) 0 %; Eosinophils # (A) 0.1 k/uL (0-0.7); Eosinophils % (A) 1 %; HCT 34.9 % (39.0-53.0); HGB 11.6 gm/dL (13.0-17.5); Lymphocytes # (A) 1.2 k/uL (1.0-4.8); Lymphocytes % (A) 15 %; MCH 28.1 pg (25.0-35.0); MCHC 33.3 g/dL (31.0-37.0); MCV 84.5 fL (80.0-100.0); Mean Platelet Volume 8.8; Monocytes # (A) 0.4 k/uL (0-1.0); Monocytes % (A) 5 %; Neutrophils # (A) 6.3 k/uL (1.3-7.7); Neutrophils % (A) 78 %; Platelet Count 156 k/uL (150-450); RBC 4.13 m/uL (4.30-5.90); RDW 14.9 % (11.5-15.5); WBC 8.1 k/uL (3.8-10.6)
--- NOTE | 2023-06-14 08:44 | XR ---
EXAMINATION TYPE: XR chest 2V DATE OF EXAM: 06/14/2023 COMPARISON: 05/19/2023 TECHNIQUE: PA and lateral views submitted. HISTORY: Chest pain FINDINGS: Limited inspiration with bibasilar subsegmental consolidation. Underlying COPD is present. Bilateral shoulder arthropathy. Heart size normal. No pneumothorax. Tiny right-sided pleural effusion. Arthropa thy of the shoulders. Degenerative changes IMPRESSION: 1. Cardiomegaly with bibasilar atelectasis and small effusions underlying pneumonia not excluded. Cor relate clinically for mild venous congestion.
[2023-06-14 08:48] LABS: Partial Thromboplastin Time 25.5 sec (22.0-30.0); Prothrombin Time 11.2 sec (10.0-12.5)
[2023-06-14 08:56] LABS: ALT 15 U/L (4-49); AST 26 U/L (17-59); African American GFR (CKD) 26 (>60 ml/min/1.73 sqM); Albumin 3.8 g/dL (3.5-5.0); Alkaline Phosphatase 77 U/L (38-126); Anion Gap 12 mmol/L; Blood Urea Nitrogen 40 mg/dL (9-20); Carbon Dioxide 24 mmol/L (22-30); Chloride 98 mmol/L (98-107); Glucose 111 mg/dL (74-99); Magnesium 2.5 mg/dL (1.6-2.3); Non-African American GFR(CKD) 22 (>60 ml/min/1.73 sqM); Potassium 2.8 mmol/L (3.5-5.1); Sodium 134 mmol/L (137-145); Total Bilirubin 0.8 mg/dL (0.2-1.3); Total Protein 6.7 g/dL (6.3-8.2)
[2023-06-14 09:05] LABS: NT-Pro-B-Type Natriuretic Pept 26000 pg/mL
[2023-06-14] MEDS ORDERED: POTASSIUM CHLORIDE ER 20 MEQ TAB.ER PO STA ×2 (09:58→16:48)
[2023-06-14] MEDS: FUROSEMIDE 10 MG/ML 4 ML VIAL IV SCH ×2 (10:44→20:41)
[2023-06-14] MEDS ORDERED: ONDANSETRON 4 MG/2 ML VIAL IVP PRN (12:42)
[2023-06-14] MEDS ORDERED: NALOXONE 0.4 MG/ML 1 ML VIAL IV PRN (12:42)
--- NOTE | 2023-06-14 12:46 | P.NPCON ---
History of Present Illness - Reason for Consult acute renal failure, chronic renal failure - History of Present Illness Reason for consultation: Acute kidney injury on chronic kidney disease History of present illness: Patient is a 83-year-old male seen in renal consultation for chronic kidney disease. Patient has chronic kidney disease stage IV with baseline creatinine near 2.2 from March 2023. Patient was admitted at this facility in April 2023 and creatinine ranged from 2.34-2.85. This admission patient's creatinine was 2.5. He came to the hospital due to generalized weakness. He also complained of mild chest pain and difficulty breathing. He is currently on room air. Hemodynamically stable. Patient has history of systolic CHF with ejection fraction of 20-25% and mild to moderate mitral and tricuspid regurgitation. He denies history of diabetes. He does have history of coronary artery disease and multiple cardiac stents. Patient also has history of urinary retention. CAT scan from earlier this month showed no evidence of hydronephrosis. He does admit to taking Aleve about twice a week as needed for pain. He denies gross hematuria or dysuria. Appetite has been fair. Vital signs are stable. General: No acute distress. HEENT: Head exam is unremarkable. LUNGS: No audible rhonchi or wheezes. HEART: Rate and Rhythm are regular. ABDOMEN: Nontender. EXTREMITITES: No edema. Past Medical History Past Medical History: Coronary Artery Disease (CAD), Heart Failure, CVA/TIA, GERD/Reflux, Hyperlipidemia, Hypertension, Myocardial Infarction ([place]), Musculoskeletal Disorder, Osteoarthritis (OA), Prostate Disorder, Skin Disorder, Thyroid Disorder Additional Past Medical History / Comment(s): Lumbar disc disease, HERNIATED DISC IN BACK. Diverticular disease with diverticulosis, BPH, [place] X2, unknown dates. lft leg weakness post cva (NO ASSISTED DEVICES). SHINGLES IN LEFT EYE. 03/19 cardiac stents Last Myocardial Infarction Date:: 03/2023 History of Any Multi-Drug Resistant Organisms: None Reported Past Surgical History: Adenoidectomy, Heart Catheterization With Stent, Joint Replacement, Tonsillectomy Additional Past Surgical History / Comment(s): Chato KNEE REPLACMENT. Colonoscopy with polypectomy, epidural steroid injections. carotid stents-23 Past Anesthesia/Blood Transfusion Reactions: No Reported Reaction Date of Last Stent Placement:: UNK Past Psychological History: No Psychological Hx Reported Smoking Status: Former smoker Past Alcohol Use History: Rare Additional Past Alcohol Use History / Comment(s): Quit smoking in 1966. Past Drug Use History: None Reported - Past Family History Sister(s) Family Medical History: Cancer Additional Family Medical History / Comment(s): Pancreatic cancer. Father History Unknown: Yes Family Medical History: Cancer Mother History Unknown: Yes Family Medical History: Congestive Heart Failure (CHF) Additional Family Medical History / Comment(s): AT AGE 94. Medications and Allergies Home Medications Medication Instructions Recorded Confirmed Type Tamsulosin [Flomax] 0.4 mg PO HS 03/20/20 06/14/23 History Atorvastatin [Lipitor] 40 mg PO HS #30 tab 11/21/22 06/14/23 Rx Aspirin 81 mg PO DAILY tab 03/22/23 06/14/23 Rx Ticagrelor [Brilinta] 90 mg PO BID #180 tab 03/22/23 06/14/23 Rx Gabapentin [Neurontin] 200 mg PO BID 04/25/23 06/14/23 History Empagliflozin [Jardiance] 10 mg PO DAILY 05/16/23 06/14/23 History HYDROcodone/APAP 7.5-325MG [[place] 1 tab PO Q8H PRN 05/16/23 06/14/23 History 7.5-325] Lactulose 10 gm PO DAILY PRN 06/02/23 06/14/23 History Nitroglycerin Sl Tabs [Nitrostat] 0.4 mg SL Q5M PRN 06/02/23 06/14/23 History Levofloxacin [Levaquin] 250 mg PO DAILY 10 Days #10 tablet 06/04/23 06/14/23 Rx Omeprazole [PriLOSEC] 20 mg PO AC-BRKFST #30 cap 06/04/23 06/14/23 Rx Terazosin [Hytrin] 1 mg PO HS #30 cap 06/04/23 06/14/23 Rx carvediloL [Coreg] 3.125 mg PO BID #60 tablet 06/04/23 06/14/23 Rx metroNIDAZOLE [Flagyl] 500 mg PO TID 10 Days #30 tab 06/04/23 06/14/23 Rx Allergies Allergy/AdvReac Type Severity Reaction Status Date / Time No Known Allergies Allergy Verified 06/14/23 08:56 Physical Exam Vitals: Vital Signs Temp Pulse Resp BP Pulse Ox 06/14/23 10:50 118/79 96 06/14/23 10:40 80 118/79 95 06/14/23 10:30 120/86 96 06/14/23 10:20 75 120/86 95 06/14/23 10:10 75 120/86 96 06/14/23 10:00 75 123/87 96 06/14/23 09:50 123/87 06/14/23 09:40 76 123/87 06/14/23 09:30 75 6 L 116/99 97 06/14/23 09:20 75 6 L 116/99 96 06/14/23 09:10 77 19 116/99 95 06/14/23 09:00 76 19 88 L 06/14/23 08:50 80 17 96 06/14/23 08:40 79 17 96 06/14/23 08:30 77 18 96 06/14/23 08:20 96 06/14/23 08:15 97.7 F 77 18 113/73 98 Intake and Output 06/13/23 06/14/23 06/14/23 22:59 06:59 14:59 Other: Weight 79.379 kg Results - Lab Results Most recent lab results Calcium 9.0 mg/dL (8.4-10.2) 06/14/23 08:19 Magnesium 2.5 mg/dL (1.6-2.3) H 06/14/23 08:19 06/14/23 08:19 06/14/23 08:19 Assessment and Plan Plan: Assessment: 1. Acute kidney injury secondary to ATN secondary to cardiorenal syndrome. Rule out urinary retention. Creatinine 2.5-1 admission. CAT scan from earlier this month showed no evidence of hydronephrosis. 2. Chronic kidney disease stage IV with baseline creatinine near 2.2 secondary to nephrosclerosis and cardiorenal syndrome. 3. History of urinary retention. 4. Hypokalemia from diuresis. 5. Coronary artery disease with cardiac stents. 6. Fluid overload. 7. Acute on chronic systolic CHF with ejection fraction of 20-25% and mild to moderate mitral and tricuspid regurgitation. Plan: Maintain IV Lasix. Potassium replaced. Check another potassium level today. Check urinalysis. Check bladder scan to rule out urinary retention. Resume Flomax. Avoid nephrotoxins. Continue to monitor renal function and urine output. Thank you for the consultation. I will continue to follow the patient with you during his hospital stay.
[2023-06-14] MEDS: ASPIRIN 81 MG PO SCH (12:47)
[2023-06-14] MEDS: POTASSIUM CHLORIDE 10 MEQ in WATER FOR INJECTION 1 100ML.BAG IVPB SCH ×2 (13:47→16:23)
[2023-06-14] MEDS: PANTOPRAZOLE 40 MG TABLET PO SCH (14:18)
[2023-06-14] MEDS: carvediloL 3.125 MG TAB PO SCH ×2 (14:18→16:24)
[2023-06-14] MEDS: GABAPENTIN 100 MG CAP PO SCH ×2 (14:18→20:40)
[2023-06-14] MEDS: TICAGRELOR 90 MG TAB PO SCH ×2 (14:18→20:40)
--- NOTE | 2023-06-14 14:51 | P.HPIM ---
History of Present Illness H&P Date: 06/14/23 Chief Complaint: Shortness of breath, chest pain, weakness * 83-year-old gentleman with past medical history significant for congestive heart failure systolic dysfunction, BPH, history of CVA, gastroesophageal reflux disease, degenerative disease of spine, was recently hospitalized with colitis and discharged home on 06/04/23 with plan to complete 10 day course of antibiotic * Patient presents back to the emergency department with complains of weakness, chest pain, shortness of breath, dizziness and generalized weakness * Workup initiated in ER included WBC count of 8.1 hemoglobin 11.6 platelet count of 156, serum chemistry showed sodium of 134 potassium 2.8 carbon dioxid e 24 BU and 40 2.5 to magnesium of 2.5 ALT of 15 AST 26 N-terminal proBNP of 26,000 albumin of 3.8 initial troponin obtained in ER was 0.066, EKG obtained negative for acute ST segment changes * Patient has previously followed up with cardiology and had echocardiogram done April 2023 which showed ejection fraction of 20-25% and mild pulmonary hypertension and valvular heart disease * Chest x-ray obtained this admission shows pulmonary vascular congestion * Patient was started on IV Lasix and admitted to medical floor with consultation from cardiology as well as nephrology REVIEW OF SYSTEMS: Shortness of breath, weakness, chest pain CONSTITUTIONAL: No fever, no malaise, no fatigue. HEENT: No recent visual problems or hearing problems. Denied any sore throat. CARDIOVASCULAR: No chest pain, orthopnea, PND, no palpitations, no syncope. PULMONARY: No shortness of breath, no cough, no hemoptysis. GASTROINTESTINAL: No diarrhea, no nausea, no vomiting, no abdominal pain. NEUROLOGICAL: No headaches, no weakness, no numbness. HEMATOLOGICAL: Denies any bleeding or petechiae. GENITOURINARY: Denies any burning micturition, frequency, or urgency. MUSCULOSKELETAL/RHEUMATOLOGICAL: Denies any joint pain, swelling, or any muscle pain. ENDOCRINE: Denies any polyuria or polydipsia. PHYSICAL EXAMINATION: GENERAL: The patient is alert and oriented x3, chronically ill appearance HEENT: Pupils are round and equally reacting to light. EOMI Normocephalic, atraumatic. No pharyngeal erythema. No thyromegaly. CARDIOVASCULAR: S1 and S2 present. No murmurs, rubs, or gallops. PULMONARY: Decreased breath sounds bilaterally ABDOMEN: Soft, nontender, nondistended, normoactive bowel sounds. No palpable organomegaly. MUSCULOSKELETAL: No joint swelling or deformity. EXTREMITIES: No cyanosis, clubbing, or pedal edema. NEUROLOGICAL: Gross neurological examination did not reveal any focal deficits. SKIN: No rashes. Past Medical History Past Medical History: Coronary Artery Disease (CAD), Heart Failure, CVA/TIA, GERD/Reflux, Hyperlipidemia, Hypertension, Myocardial Infarction ([place]), Musculos keletal Disorder, Osteoarthritis (OA), Prostate Disorder, Skin Disorder, Thyroid Disorder Additional Past Medical History / Comment(s): Lumbar disc disease, HERNIATED DISC IN BACK. Diverticular disease with diverticulosis, BPH, [place] X2, unknown dates. lft leg weakness post cva (NO ASSISTED DEVICES). SHINGLES IN LEFT EYE. 03/19 cardiac stents Last Myocardial Infarction Date:: 03/2023 History of Any Multi-Drug Resistant Organisms: None Reported Past Surgical History: Adenoidectomy, Heart Catheterization With Stent, Joint Replacement, Tonsillectomy Additional Past Surgical History / Comment(s): Chato KNEE REPLACMENT. Colonoscopy with polypectomy, epidural steroid injections. carotid stents- Past Anesthesia/Blood Transfusion Reactions: No Reported Reaction Date of Last Stent Placement:: UNK Past Psychological History: No Psychological Hx Reported Smoking Status: Former smoker Past Alcohol Use History: Rare Additional Past Alcohol Use History / Comment(s): Quit smoking in 1966. Past Drug Use History: None Reported - Past Family History Sister(s) Family Medical History: Cancer Additional Family Medical History / Comment(s): Pancreatic cancer. Father History Unknown: Yes Family Medical History: Cancer Mother History Unknown: Yes Family Medical History: Congestive Heart Failure (CHF) Additional Family Medical History / Comment(s): AT AGE 94. Medications and Allergies Home Medications Medication Instructions Recorded Confirmed Type Tamsulosin [Flomax] 0.4 mg PO HS 03/20/20 06/14/23 History Atorvastatin [Lipitor] 40 mg PO HS #30 tab 11/21/22 06/14/23 Rx Aspirin 81 mg PO DAILY tab 03/22/23 06/14/23 Rx Ticagrelor [Brilinta] 90 mg PO BID #180 tab 03/22/23 06/14/23 Rx Gabapentin [Neurontin] 200 mg PO BID 04/25/23 06/14/23 History Empagliflozin [Jardiance] 10 mg PO DAILY 05/16/23 06/14/23 History HYDROcodone/APAP 7.5-325MG [[place] 1 tab PO Q8H PRN 05/16/23 06/14/23 History 7.5-325] Lactulose 10 gm PO DAILY PRN 06/02/23 06/14/23 History Nitroglycerin Sl Tabs [Nitrostat] 0.4 mg SL Q5M PRN 06/02/23 06/14/23 History Levofloxacin [Levaquin] 250 mg PO DAILY 10 Days #10 tablet 06/04/23 06/14/23 Rx Omeprazole [PriLOSEC] 20 mg PO AC-BRKFST #30 cap 06/04/23 06/14/23 Rx Terazosin [Hytrin] 1 mg PO HS #30 cap 06/04/23 06/14/23 Rx carvediloL [Coreg] 3.125 mg PO BID #60 tablet 06/04/23 06/14/23 Rx metroNIDAZOLE [Flagyl] 500 mg PO TID 10 Days #30 tab 06/04/23 06/14/23 Rx Allergies Allergy/AdvReac Type Severity Reaction Status Date / Time No Known Allergies Allergy Verified 06/14/23 08:56 Physical Exam Vitals: Vital Signs Temp Pulse Resp BP Pulse Ox 06/14/23 10:50 118/79 96 06/14/23 10:40 80 118/79 95 06/14/23 10:30 120/86 96 06/14/23 10:20 75 120/86 95 06/14/23 10:10 75 120/86 96 06/14/23 10:00 75 123/87 96 06/14/23 09:50 123/87 06/14/23 09:40 76 123/87 06/14/23 09:30 75 6 L 116/99 97 06/14/23 09:20 75 6 L 116/99 96 06/14/23 09:10 77 19 116/99 95 06/14/23 09:00 76 19 88 L 06/14/23 08:50 80 17 96 06/14/23 08:40 79 17 96 06/14/23 08:30 77 18 96 06/14/23 08:20 96 06/14/23 08:15 97.7 F 77 18 113/73 98 Intake and Output 06/13/23 06/14/23 06/14/23 22:59 06:59 14:59 Other: Weight 79.379 kg Results CBC & Chem 7: 06/14/23 08:19 06/14/23 12:48 Labs: Abnormal Lab Results - Last 24 Hours (Table) 06/14/23 06/14/23 06/14/23 Range/Units 08:19 08:19 08:19 RBC 4.13 L (4.30-5.90) m/uL Hgb 11.6 L (13.0-17.5) gm/dL Hct 34.9 L (39.0-53.0) % Sodium 134 L (137-145) mmol/L Potassium 2.8 L (3.5-5.1) mmol/L BUN 40 H (9-20) mg/dL Creatinine 2.52 H (0.66-1.25) mg/dL Glucose 111 H (74-99) mg/dL Magnesium 2.5 H (1.6-2.3) mg/dL Troponin I 0.066 H* (0.000-0.034) ng/mL 06/14/23 Range/Units 10:28 RBC (4.30-5.90) m/uL Hgb (13.0-17.5) gm/dL Hct (39.0-53.0) % Sodium (137-145) mmol/L Potassium (3.5-5.1) mmol/L BUN (9-20) mg/dL Creatinine (0.66-1.25) mg/dL Glucose (74-99) mg/dL Magnesium (1.6-2.3) mg/dL Troponin I 0.069 H* (0.000-0.034) ng/mL Assessment and Plan Assessment: Assessment and plan * Acute on chronic congestive heart failure systolic dysfunction * Valvular heart disease, pulmonary hypertension mild * Chronic kidney disease stage IV with hyponatremia hypokalemia * Coronary artery disease with history of PCI Chronically elevated troponin * Dyslipidemia * Hypertension * History of BPH * Recent hospitalization for colitis * In regards to congestive heart failure acute exacerbation, continue patient on IV Lasix, cardiology consulted, heart failure pathway initiated continue to monitor intake and output, daily weights. Patient on low-salt diet * In regards to chronic kidney disease, nephrology consulted * In regards to history of coronary artery disease, troponin minimally elevated, flat, EKG no changes for acute ischemia cardiology consulted continue medical management aspirin, Lipitor, Coreg, will enter * In regards to history of hypertension continue Coreg, on IV Lasix * In regards to history of BPH continue Flomax and terazosin * CODE STATUS is FULL CODE Time with Patient: Greater than 30
[2023-06-14] MEDS: DOXAZOSIN 1 MG TAB PO SCH (20:40)
[2023-06-14] MEDS: TAMSULOSIN 0.4 MG CAP.ER.24H PO SCH (20:40)
[2023-06-14] MEDS: ATORVASTATIN 40 MG TAB PO SCH (20:40)
[2023-06-14] MEDS: HEPARIN SODIUM,PORCINE 5,000 UNIT/ML 1 ML VIAL SQ SCH (20:41)
[2023-06-15] MEDS: carvediloL 3.125 MG TAB PO SCH ×2 (06:01→17:19)
[2023-06-15] MEDS: PANTOPRAZOLE 40 MG TABLET PO SCH (06:01)
[2023-06-15] MEDS: GABAPENTIN 100 MG CAP PO SCH ×2 (08:47→20:16)
[2023-06-15] MEDS: TICAGRELOR 90 MG TAB PO SCH ×2 (08:47→20:16)
[2023-06-15] MEDS: ASPIRIN 81 MG PO SCH (08:47)
[2023-06-15] MEDS: HEPARIN SODIUM,PORCINE 5,000 UNIT/ML 1 ML VIAL SQ SCH ×2 (08:48→20:16)
[2023-06-15] MEDS: FUROSEMIDE 10 MG/ML 4 ML VIAL IV SCH (08:48)
[2023-06-15 09:04] LABS: HCT 33.8 % (39.0-53.0); HGB 10.7 gm/dL (13.0-17.5); Hypochromasia Moderate; MCH 27.6 pg (25.0-35.0); MCHC 31.8 g/dL (31.0-37.0); MCV 86.8 fL (80.0-100.0); Mean Platelet Volume 9.3; Platelet Count 134 k/uL (150-450); RBC 3.89 m/uL (4.30-5.90); WBC 7.7 k/uL (3.8-10.6)
[2023-06-15 09:24] LABS: African American GFR (CKD) 26 (>60 ml/min/1.73 sqM); Anion Gap 10 mmol/L; Blood Urea Nitrogen 44 mg/dL (9-20); Calcium 8.7 mg/dL (8.4-10.2); Carbon Dioxide 24 mmol/L (22-30); Chloride 101 mmol/L (98-107); Glucose 151 mg/dL (74-99); Magnesium 2.4 mg/dL (1.6-2.3); Non-African American GFR(CKD) 22 (>60 ml/min/1.73 sqM); Potassium 3.5 mmol/L (3.5-5.1); Sodium 135 mmol/L (137-145)
[2023-06-15] MEDS: ACETAMINOPHEN TAB 325 MG TAB PO PRN ×2 (09:52→23:17)
--- NOTE | 2023-06-15 10:42 | P.PN ---
Subjective Patient is seen in follow-up for acute kidney injury on chronic kidney disease. Renal function stable. On room air. Vital signs are stable. General: No acute distress. HEENT: Head exam is unremarkable. LUNGS: No audible rhonchi or wheezes. HEART: Rate and Rhythm are regular. ABDOMEN: Nontender. EXTREMITITES: No edema. Objective - Vital Signs Vital signs: Vital Signs Temp 97.8 F 06/15/23 08:46 Pulse 81 06/15/23 08:46 Resp 15 06/15/23 08:46 BP 108/64 06/15/23 08:46 Pulse Ox 97 06/15/23 08:46 FiO2 Intake & Output 06/14/23 06/15/23 06/15/23 18:59 06:59 18:59 Intake Total 120 Output Total 200 Balance -80 Weight 79.379 kg Intake: Oral 120 Output: Urine 200 Other: Voiding Method Toilet Urinal # Voids 3 1 - Labs CBC & Chem 7: 06/15/23 07:58 06/15/23 07:58 Labs: Abnormal Lab Results - Last 24 Hours (Table) 06/14/23 06/14/23 06/14/23 Range/Units 10:28 12:48 12:48 RBC (4.30-5.90) m/uL Hgb (13.0-17.5) gm/dL Hct (39.0-53.0) % Plt Count (150-450) k/uL Sodium (137-145) mmol/L Potassium 2.9 L (3.5-5.1) mmol/L BUN (9-20) mg/dL Creatinine (0.66-1.25) mg/dL Glucose (74-99) mg/dL Magnesium (1.6-2.3) mg/dL Troponin I 0.069 H* 0.068 H* (0.000-0.034) ng/mL 06/15/23 06/15/23 Range/Units 07:58 07:58 RBC 3.89 L (4.30-5.90) m/uL Hgb 10.7 L (13.0-17.5) gm/dL Hct 33.8 L (39.0-53.0) % Plt Count 134 L (150-450) k/uL Sodium 135 L (137-145) mmol/L Potassium (3.5-5.1) mmol/L BUN 44 H (9-20) mg/dL Creatinine 2.55 H (0.66-1.25) mg/dL Glucose 151 H (74-99) mg/dL Magnesium 2.4 H (1.6-2.3) mg/dL Troponin I (0.000-0.034) ng/mL Assessment and Plan Plan: Assessment: 1. Acute kidney injury secondary to ATN secondary to cardiorenal syndrome. Rule out urinary retention. Creatinine stable at 2.5 this admission. CAT scan from earlier this month showed no evidence of hydronephrosis. 2. Chronic kidney disease stage IV with baseline creatinine near 2.2 secondary to nephrosclerosis and cardiorenal syndrome. 3. History of urinary retention. On Flomax. 4. Hypokalemia from diuresis. Replaced. Better. 5. Coronary artery disease with cardiac stents. 6. Fluid overload. Improving with diuresis. 7. Acute on chronic systolic CHF with ejection fraction of 20-25% and mild to moderate mitral and tricuspid regurgitation. Plan: Stop IV Lasix. Add oral Lasix 40 mg twice daily. Add maintenance potassium supplementation. Follow-up urinalysis. Check bladder scan to rule out urinary retention. Avoid nephrotoxins. Continue to monitor renal function and urine output. Repeat chest x-ray.
[2023-06-15 11:18] LABS: Appearance,Urine Clear (Clear); Bilirubin,Urine Negative (Negative); Blood,Urine Negative (Negative); Color,Urine Light Yellow; Glucose,Urine (UA) 3+ (Negative); Ketones,Urine Negative (Negative); Leukocyte Esterase,Urine Negative (Negative); Nitrite,Urine Negative (Negative); PH, Urine 5.5 (5.0-8.0); Protein,Urine Trace (Negative); Specific Gravity,Urine 1.012 (1.001-1.035); Urobilinogen,Urine <2.0 mg/dL (<2.0)
[2023-06-15] MEDS: POTASSIUM CHLORIDE ER 20 MEQ TAB.ER PO SCH (11:21)
--- NOTE | 2023-06-15 12:47 | P.PN ---
Subjective Progress Note Date: 06/15/23 * 83-year-old gentleman with past medical history significant for congestive heart failure systolic dysfunction, BPH, history of CVA, gastroesophageal reflux disease, degenerative disease of spine, was recently hospitalized with colitis and discharged home on 06/04/23 with plan to complete 10 day course of a ntibiotic * Patient presents back to the emergency department with complains of weakness, chest pain, shortness of breath, dizziness and generalized weakness * Workup initiated in ER included WBC count of 8.1 hemoglobin 11.6 platelet count of 156, serum chemistry showed sodium of 134 potassium 2.8 carbon dioxide 24 BU and 40 2.5 to magnesium of 2.5 ALT of 15 AST 26 N-terminal proBNP of 26,000 albumin of 3.8 initial troponin obtained in ER was 0.066, EKG obtained negative for acute ST segment changes * Patient has previously followed up with cardiology and had echocardiogram done April 2023 which showed ejection fraction of 20-25% and mild pulmonary hypertension and valvular heart disease * Chest x-ray obtained this admission shows pulmonary vascular congestion * Patient was started on IV Lasix and admitted to medical floor with consultation from cardiology as well as nephrology * 06/15/2023: Patient seen and evaluated bedside, patient is alert and oriented to person and situation. Patient states her breathing has improved, chest pain has improved as well and resolved. Blood work reviewed hemoglobin 10.7 WBC 7.7 serum chemistry showed sodium 135 creatinine 2.55 magnesium 2.4 patient seen by nephrology as well as cardiology PHYSICAL EXAMINATION: GENERAL: The patient is alert and oriented x3, chronically ill appearance HEENT: Pupils are round and equally reacting to light. EOMI Normocephalic, atraumatic. No pharyngeal erythema. No thyromegaly. CARDIOVASCULAR: S1 and S2 present. No murmurs, rubs, or gallops. PULMONARY: Decreased breath sounds bilaterally ABDOMEN: Soft, nontender, nondistended, normoactive bowel sounds. No palpable organomegaly. MUSCULOSKELETAL: No joint swelling or deformity. EXTREMITIES: No cyanosis, clubbing, or pedal edema. NEUROLOGICAL: Gross neurological examination did not reveal any focal deficits. SKIN: No rashes. Objective - Vital Signs Vital signs: Vital Signs Temp 97.8 F 06/15/23 08:46 Pulse 74 06/15/23 11:21 Resp 16 06/15/23 11:21 BP 89/61 06/15/23 11:21 Pulse Ox 98 06/15/23 11:21 FiO2 Intake & Output 06/14/23 06/15/23 06/15/23 18:59 06:59 18:59 Intake Total 120 Output Total 200 400 Balance -80 -400 Weight 79.379 kg Intake: Oral 120 Output: Urine 200 400 Other: Voiding Method Toilet Urinal # Voids 3 1 - Labs CBC & Chem 7: 06/15/23 07:58 06/15/23 07:58 Labs: Abnormal Lab Results - Last 24 Hours (Table) 06/14/23 06/14/23 06/15/23 Range/Units 12:48 12:48 07:58 RBC 3.89 L (4.30-5.90) m/uL Hgb 10.7 L (13.0-17.5) gm/dL Hct 33.8 L (39.0-53.0) % Plt Count 134 L (150-450) k/uL Sodium (137-145) mmol/L Potassium 2.9 L (3.5-5.1) mmol/L BUN (9-20) mg/dL Creatinine (0.66-1.25) mg/dL Glucose (74-99) mg/dL Magnesium (1.6-2.3) mg/dL Troponin I 0.068 H* (0.000-0.034) ng/mL Urine Protein (Negative) Urine Glucose (UA) (Negative) 06/15/23 06/15/23 Range/Units 07:58 11:00 RBC (4.30-5.90) m/uL Hgb (13.0-17.5) gm/dL Hct (39.0-53.0) % Plt Count (150-450) k/uL Sodium 135 L (137-145) mmol/L Potassium (3.5-5.1) mmol/L BUN 44 H (9-20) mg/dL Creatinine 2.55 H (0.66-1.25) mg/dL Glucose 151 H (74-99) mg/dL Magnesium 2.4 H (1.6-2.3) mg/dL Troponin I (0.000-0.034) ng/mL Urine Protein Trace H (Negative) Urine Glucose (UA) 3+ H (Negative) Assessment and Plan Assessment: Assessment and plan * Acute on chronic congestive heart failure systolic dysfunction * Valvular heart disease, pulmonary hypertension mild * Chronic kidney disease stage IV with hyponatremia hypokalemia * Coronary artery disease with history of PCI Chronically elevated troponin * Dyslipidemia * Hypertension * History of BPH * Recent hospitalization for colitis * In regards to congestive heart failure acute exacerbation, continue patient on Lasix>> IV transition to oral, continue to monitor intake and output and daily weights * In regards to chronic kidney disease, nephrology consulted appreciate input * In regards to history of coronary artery disease, troponin minimally elevated, flat, EKG no changes for acute ischemia cardiology consulted continue medical management aspirin, Lipitor, Coreg, * In regards to history of hypertension continue Coreg, on Lasix * In regards to history of BPH continue Flomax and terazosin * CODE STATUS is FULL CODE Time with Patient: Greater than 30
[2023-06-15] MEDS: FUROSEMIDE 40 MG TAB PO SCH (15:42)
[2023-06-15] MEDS: ATORVASTATIN 40 MG TAB PO SCH (20:15)
[2023-06-15] MEDS: DOXAZOSIN 1 MG TAB PO SCH (20:16)
[2023-06-15] MEDS: TAMSULOSIN 0.4 MG CAP.ER.24H PO SCH (20:16)
--- NOTE | 2023-06-15 20:33 | P.CRDCN ---
History of Present Illness Consult date: 06/15/23 History of present illness: HISTORY OF PRESENTING ILLNESS 73-year-old with PMH of CHF, ischemic adenopathy, CVA, was recently hospitalized for colitis and discharged home 10 days ago. He presented to the hospital because of shortness of breath dizziness and generalized weakness. WBC count of 8.1 hemoglobin 11.6 platelet count of 156, serum chemistry showed sodium of 134 potassium 2.8 carbon dioxide 24 BU and 40 2.5 to magnesium of 2.5 ALT of 15 AST 26 N-terminal proBNP of 26,000 ECG shows sinus rhythm with left bundle-branch block which is unchanged essentially LVEF 30-35% inferior hypokinesia from February 2023 Heart cath showed proximal mid LAD PCI, diagonal PCI by Dr. Ritter. 40-50% disease in mid RCA. REVIEW OF SYSTEMS 14 point review of system is negative except what is mentioned above in HPI. PHYSICAL EXAMINATION BP 108/64, heart rate 81 Lungs: Reduced air entry bilateral lower lung saini Heart: Regular rate and rhythm, S1-S2, no S3, no murmur or rub. Abdomen: Soft, mildly distended, mild tenderness Extremities: 1+ pitting edema. Neuro: Alert, oritented, detailed neuro exam was not performed ASSESSMENT Mild elevation of troponin at 0.06 with a flat pattern. 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 Continue Lasix 40 mg twice a day Continue Coreg 3.125 mg twice a day. We are unable to intensify further heart failure medication as we are limited with blood pressure and kidney function. Past Medical History Past Medical History: Coronary Artery Disease (CAD), Heart Failure, CVA/TIA, GERD/Reflux, Hyperlipidemia, Hypertension, Myocardial Infarction ([place]), Mus culoskeletal Disorder, Osteoarthritis (OA), Prostate Disorder, Skin Disorder, Thyroid Disorder Additional Past Medical History / Comment(s): Lumbar disc disease, HERNIATED DIS C IN BACK. Diverticular disease with diverticulosis, BPH, [place] X2, unknown dates. lft leg weakness post cva (NO ASSISTED DEVICES). SHINGLES IN LEFT EYE. 03/19 cardiac stents Last Myocardial Infarction Date:: 03/2023 History of Any Multi-Drug Resistant Organisms: None Reported Past Surgical History: Adenoidectomy, Heart Catheterization With Stent, Joint Replacement, Tonsillectomy Additional Past Surgical History / Comment(s): Chato KNEE REPLACMENT. Colonoscopy with polypectomy, epidural steroid injections. carotid stents-23 Past Anesthesia/Blood Transfusion Reactions: No Reported Reaction Date of Last Stent Placement:: UNK Past Psychological History: No Psychological Hx Reported Smoking Status: Former smoker Past Alcohol Use History: Rare Additional Past Alcohol Use History / Comment(s): Quit smoking in 1966. Past Drug Use History: None Reported - Past Family History Sister(s) Family Medical History: Cancer Additional Family Medical History / Comment(s): Pancreatic cancer. Father History Unknown: Yes Family Medical History: Cancer Mother History Unknown: Yes Family Medical History: Congestive Heart Failure (CHF) Additional Family Medical History / Comment(s): AT AGE 94. Medications and Allergies Home Medications Medication Instructions Recorded Confirmed Type Tamsulosin [Flomax] 0.4 mg PO HS 03/20/20 06/14/23 History Atorvastatin [Lipitor] 40 mg PO HS #30 tab 11/21/22 06/14/23 Rx Aspirin 81 mg PO DAILY tab 03/22/23 06/14/23 Rx Ticagrelor [Brilinta] 90 mg PO BID #180 tab 03/22/23 06/14/23 Rx Gabapentin [Neurontin] 200 mg PO BID 04/25/23 06/14/23 History Empagliflozin [Jardiance] 10 mg PO DAILY 05/16/23 06/14/23 History HYDROcodone/APAP 7.5-325MG [[place] 1 tab PO Q8H PRN 05/16/23 06/14/23 History 7.5-325] Lactulose 10 gm PO DAILY PRN 06/02/23 06/14/23 History Nitroglycerin Sl Tabs [Nitrostat] 0.4 mg SL Q5M PRN 06/02/23 06/14/23 History Levofloxacin [Levaquin] 250 mg PO DAILY 10 Days #10 tablet 06/04/23 06/14/23 Rx Omeprazole [PriLOSEC] 20 mg PO AC-BRKFST #30 cap 06/04/23 06/14/23 Rx Terazosin [Hytrin] 1 mg PO HS #30 cap 06/04/23 06/14/23 Rx carvediloL [Coreg] 3.125 mg PO BID #60 tablet 06/04/23 06/14/23 Rx metroNIDAZOLE [Flagyl] 500 mg PO TID 10 Days #30 tab 06/04/23 06/14/23 Rx Allergies Allergy/AdvReac Type Severity Reaction Status Date / Time No Known Allergies Allergy Verified 06/14/23 08:56 Physical Exam Vitals: Vital Signs Temp Pulse Resp BP Pulse Ox 06/15/23 20:08 97.8 F 91 17 98/92 98 06/15/23 15:07 82 17 104/68 99 06/15/23 11:21 74 16 89/61 98 06/15/23 08:46 97.8 F 81 15 108/64 97 06/15/23 04:15 81 16 115/73 97 06/15/23 02:00 81 06/14/23 23:51 84 16 109/71 95 Intake and Output 06/15/23 06/15/23 06/15/23 06:59 14:59 22:59 Intake Total 120 Output Total 400 Balance -400 120 Intake: Oral 120 Output: Urine 400 Other: Voiding Method Toilet Urinal # Voids 3 1 Weight 79.379 kg Results 06/15/23 07:58 06/15/23 07:58 CBC 06/15/23 Range/Units 07:58 WBC 7.7 (3.8-10.6) k/uL RBC 3.89 L (4.30-5.90) m/uL Hgb 10.7 L (13.0-17.5) gm/dL Hct 33.8 L (39.0-53.0) % Plt Count 134 L (150-450) k/uL Comprehensive Metabolic Panel 06/15/23 Range/Units 07:58 Sodium 135 L (137-145) mmol/L Potassium 3.5 (3.5-5.1) mmol/L Chloride 101 (98-107) mmol/L Carbon Dioxide 24 (22-30) mmol/L BUN 44 H (9-20) mg/dL Creatinine 2.55 H (0.66-1.25) mg/dL Glucose 151 H (74-99) mg/dL Calcium 8.7 (8.4-10.2) mg/dL Current Medications Generic Name Dose Route Start Last Admin Trade Name Freq PRN Reason Stop Dose Admin Acetaminophen 650 mg 06/14/23 12:42 06/15/23 09:52 Acetaminophen Tab 325 Mg Tab PO 650 mg Q6HR PRN Administration Mild Pain or Fever > 100.5 Aspirin 81 mg 06/14/23 12:45 06/15/23 08:47 Aspirin 81 Mg PO 81 mg DAILY ROSEANNA Administration Atorvastatin Calcium 40 mg 06/14/23 21:00 06/15/23 20:15 Atorvastatin 40 Mg Tab PO 40 mg HS ROSEANNA Administration Carvedilol 3.125 mg 06/14/23 13:00 06/15/23 17:19 Carvedilol 3.125 Mg Tab PO 3.125 mg AC-BID ROSEANNA Administration Doxazosin Mesylate 1 mg 06/14/23 21:00 06/15/23 20:16 Doxazosin 1 Mg Tab PO 1 mg HS ROSEANNA Administration Furosemide 40 mg 06/15/23 16:00 06/15/23 15:42 Furosemide 40 Mg Tab PO 40 mg BID@0900,1600 ROSEANNA Administration Gabapentin 200 mg 06/14/23 13:00 06/15/23 20:16 Gabapentin 100 Mg Cap PO 200 mg BID ROSEANNA Administration Heparin Sodium (Porcine) 5,000 unit 06/14/23 21:00 06/15/23 20:16 Heparin Sodium,Porcine 5,000 Unit/Ml 1 Ml Vial SQ 5,000 unit Q12HR ROSEANNA Administration Naloxone HCl 0.2 mg 06/14/23 12:42 Naloxone 0.4 Mg/Ml 1 Ml Vial IV Q2M PRN Opioid Reversal Ondansetron HCl 4 mg 06/14/23 12:42 Ondansetron 4 Mg/2 Ml Vial IVP Q8HR PRN Nausea And Vomiting Pantoprazole Sodium 40 mg 06/14/23 13:00 06/15/23 06:01 Pantoprazole 40 Mg Tablet PO 40 mg AC-BRKFST ROSEANNA Administration Potassium Chloride 20 meq 06/15/23 10:45 06/15/23 11:21 Potassium Chloride Er 20 Meq Tab.Er PO 20 meq DAILY ROSEANNA Administration Tamsulosin HCl 0.4 mg 06/14/23 21:00 06/15/23 20:16 Tamsulosin 0.4 Mg Cap.Er.24h PO 0.4 mg HS ROSEANNA Administration Ticagrelor 90 mg 06/14/23 13:00 06/15/23 20:16 Ticagrelor 90 Mg Tab PO 90 mg BID ROSEANNA Administration Intake and Output 06/15/23 06/15/23 06/15/23 06:59 14:59 22:59 Intake Total 120 Output Total 400 Balance -400 120 Intake: Oral 120 Output: Urine 400 Other: Voiding Method Toilet Urinal # Voids 3 1 Weight 79.379 kg Patient Weight 06/16/23 06:59 Weight 79.379 kg 06/15/23 07:58 06/15/23 07:58
[2023-06-16] MEDS: PANTOPRAZOLE 40 MG TABLET PO SCH (06:31)
[2023-06-16] MEDS: MIDODRINE 5 MG TAB PO SCH ×3 (06:31→16:57)
[2023-06-16] MEDS: carvediloL 3.125 MG TAB PO SCH (06:31)
--- NOTE | 2023-06-16 07:54 | XR ---
EXAMINATION TYPE: XR chest 1V DATE OF EXAM: 06/16/2023 COMPARISON: 05/19/2023 HISTORY: Shortness of breath TECHNIQUE: Single frontal view of the chest is obtained. FINDINGS: There is mild cardiomegaly but no definite pulmonary vascular congestion. There is mild diffuse inter stitial prominence greatest in the lung bases essentially unchanged compared to previous. A small par tially consolidated focal infiltrate is seen at the left lung base to the costophrenic angle which wa s seen previously and is slightly smaller in the interval. The osseous structures are intact IMPRESSION: 1. Mild cardiomegaly. 2. Probable mild chronic interstitial changes. 3. Small left lower lobe focal infiltrate similar but slightly smaller compared to the prior study.
[2023-06-16 08:08] LABS: HCT 31.8 % (39.0-53.0); HGB 10.3 gm/dL (13.0-17.5); Hypochromasia Slight; MCH 27.7 pg (25.0-35.0); MCHC 32.4 g/dL (31.0-37.0); MCV 85.5 fL (80.0-100.0); Mean Platelet Volume 9.7; Platelet Count 132 k/uL (150-450); RBC 3.71 m/uL (4.30-5.90); RDW 14.9 % (11.5-15.5); WBC 9.3 k/uL (3.8-10.6)
[2023-06-16] MEDS: FUROSEMIDE 40 MG TAB PO SCH ×2 (08:17→15:09)
[2023-06-16] MEDS: POTASSIUM CHLORIDE ER 20 MEQ TAB.ER PO SCH (08:17)
[2023-06-16] MEDS: TICAGRELOR 90 MG TAB PO SCH ×2 (08:17→20:36)
[2023-06-16] MEDS: HEPARIN SODIUM,PORCINE 5,000 UNIT/ML 1 ML VIAL SQ SCH ×2 (08:17→20:37)
[2023-06-16] MEDS: ASPIRIN 81 MG PO SCH (08:17)
[2023-06-16] MEDS: GABAPENTIN 100 MG CAP PO SCH ×2 (08:17→20:36)
[2023-06-16 08:21] LABS: African American GFR (CKD) 23 (>60 ml/min/1.73 sqM); Anion Gap 9 mmol/L; Blood Urea Nitrogen 54 mg/dL (9-20); Calcium 8.5 mg/dL (8.4-10.2); Carbon Dioxide 24 mmol/L (22-30); Chloride 101 mmol/L (98-107); Glucose 104 mg/dL (74-99); Magnesium 2.4 mg/dL (1.6-2.3); Non-African American GFR(CKD) 20 (>60 ml/min/1.73 sqM); Potassium 3.8 mmol/L (3.5-5.1); Sodium 134 mmol/L (137-145)
--- NOTE | 2023-06-16 10:23 | P.PN ---
Subjective Patient is seen in follow-up for acute kidney injury on chronic kidney disease. Renal function slightly worse. Has Potts catheter for urinary retention. Nonoliguric. Vital signs are stable. General: No acute distress. HEENT: Head exam is unremarkable. LUNGS: No audible rhonchi or wheezes. HEART: Rate and Rhythm are regular. ABDOMEN: Nontender. EXTREMITITES: No edema. Objective - Vital Signs Vital signs: Vital Signs Temp 97.7 F 06/16/23 08:16 Pulse 84 06/16/23 08:23 Resp 16 06/16/23 08:16 BP 102/66 06/16/23 08:16 Pulse Ox 98 06/16/23 08:16 FiO2 Intake & Output 06/15/23 06/16/23 06/16/23 18:59 06:59 18:59 Intake Total 120 180 225 Output Total 400 600 Balance -280 -420 225 Weight 79.379 kg 77.8 kg Intake: Oral 120 180 225 Output: Urine 400 600 Other: Voiding Method Toilet Indwelling Catheter Indwelling Catheter Urinal # Voids 1 - Labs CBC & Chem 7: 06/16/23 07:24 06/16/23 07:24 Labs: Abnormal Lab Results - Last 24 Hours (Table) 06/15/23 06/16/23 06/16/23 Range/Units 11:00 07:24 07:24 RBC 3.71 L (4.30-5.90) m/uL Hgb 10.3 L (13.0-17.5) gm/dL Hct 31.8 L (39.0-53.0) % Plt Count 132 L (150-450) k/uL Sodium 134 L (137-145) mmol/L BUN 54 H (9-20) mg/dL Creatinine 2.75 H (0.66-1.25) mg/dL Glucose 104 H (74-99) mg/dL Magnesium 2.4 H (1.6-2.3) mg/dL Urine Protein Trace H (Negative) Urine Glucose (UA) 3+ H (Negative) Assessment and Plan Plan: Assessment: 1. Acute kidney injury secondary to ATN secondary to cardiorenal syndrome. Creatinine slightly worse at 2.75 today. CAT scan from earlier this month showed no evidence of hydronephrosis. UA fairly benign. 2. Chronic kidney disease stage IV with baseline creatinine near 2.2 secondary to nephrosclerosis and cardiorenal syndrome. 3. Urinary retention. Has Potts catheter. On doxazosin. 4. Hypokalemia from diuresis. Replaced. Better. 5. Coronary artery disease with cardiac stents. 6. Fluid overload. Improved with diuresis. 7. Acute on chronic systolic CHF with ejection fraction of 20-25% and mild to moderate mitral and tricuspid regurgitation. 8. Anemia of chronic kidney disease. Rule out iron deficiency. Plan: Maintain oral Lasix. Avoid nephrotoxins. Continue to monitor renal function and urine output. Stop Flomax as he is already on doxazosin. Maintain midodrine. Hold for systolic blood pressure greater than 110. Check iron studies.
--- NOTE | 2023-06-16 11:19 | P.PN ---
Subjective Progress Note Date: 06/16/23 * 83-year-old gentleman with past medical history significant for congestive heart failure systolic dysfunction, BPH, history of CVA, gastroesophageal reflux disease, degenerative disease of spine, was recently hospitalized with colitis and discharged home on 06/04/23 with plan to complete 10 day course of a ntibiotic * Patient presents back to the emergency department with complains of weakness, chest pain, shortness of breath, dizziness and generalized weakness * Workup initiated in ER included WBC count of 8.1 hemoglobin 11.6 platelet count of 156, serum chemistry showed sodium of 134 potassium 2.8 carbon dioxide 24 BU and 40 2.5 to magnesium of 2.5 ALT of 15 AST 26 N-terminal proBNP of 26,000 albumin of 3.8 initial troponin obtained in ER was 0.066, EKG obtained negative for acute ST segment changes * Patient has previously followed up with cardiology and had echocardiogram done April 2023 which showed ejection fraction of 20-25% and mild pulmonary hypertension and valvular heart disease * Chest x-ray obtained this admission shows pulmonary vascular congestion * Patient was started on IV Lasix and admitted to medical floor with consultation from cardiology as well as nephrology * 06/15/2023: Patient seen and evaluated bedside, patient is alert and oriented to person and situation. Patient states her breathing has improved, chest pain has improved as well and resolved. Blood work reviewed hemoglobin 10.7 WBC 7.7 serum chemistry showed sodium 135 creatinine 2.55 magnesium 2.4 patient seen by nephrology as well as cardiology * 06/16/2023: patient seen and evaluated at bedside, follow-up renal profile ordered creatinine 2.75, appreciate input from Cardiology as well as Nephrology patient will need physical therapy evaluation will likely need placement. Patient remains on room air at this point expected length of stay another 48 hours. Patient was noted to be hypotensive started on Midodrin PHYSICAL EXAMINATION: GENERAL: The patient is alert and oriented x3, chronically ill appearance , Potts catheter in place HEENT: Pupils are round and equally reacting to light. EOMI Normocephalic, atraumatic. No pharyngeal erythema. No thyromegaly. CARDIOVASCULAR: S1 and S2 present. No murmurs, rubs, or gallops. PULMONARY: Decreased breath sounds bilaterally ABDOMEN: Soft, nontender, nondistended, normoactive bowel sounds. No palpable organomegaly. MUSCULOSKELETAL: No joint swelling or deformity. EXTREMITIES: No cyanosis, clubbing, or pedal edema. NEUROLOGICAL: Gross neurological examination did not reveal any focal deficits. SKIN: No rashes. Objective - Vital Signs Vital signs: Vital Signs Temp 97.8 F 06/15/23 20:08 Pulse 94 06/16/23 02:00 Resp 17 06/15/23 23:19 BP 110/72 06/15/23 23:19 Pulse Ox 98 06/15/23 23:19 FiO2 Intake & Output 06/15/23 06/15/23 06/16/23 06:59 18:59 06:59 Intake Total 120 180 Output Total 400 300 Balance -280 -120 Weight 79.379 kg Intake: Oral 120 180 Output: Urine 400 300 Other: Voiding Method Toilet Indwelling Catheter Urinal # Voids 3 1 - Labs CBC & Chem 7: 06/16/23 07:24 06/16/23 07:24 Labs: Abnormal Lab Results - Last 24 Hours (Table) 06/15/23 06/15/23 06/15/23 Range/Units 07:58 07:58 11:00 RBC 3.89 L (4.30-5.90) m/uL Hgb 10.7 L (13.0-17.5) gm/dL Hct 33.8 L (39.0-53.0) % Plt Count 134 L (150-450) k/uL Sodium 135 L (137-145) mmol/L BUN 44 H (9-20) mg/dL Creatinine 2.55 H (0.66-1.25) mg/dL Glucose 151 H (74-99) mg/dL Magnesium 2.4 H (1.6-2.3) mg/dL Urine Protein Trace H (Negative) Urine Glucose (UA) 3+ H (Negative) Assessment and Plan Assessment: Assessment and plan * Acute on chronic congestive heart failure systolic dysfunction * Valvular heart disease, pulmonary hypertension mild * Acute kidney injury on Chronic kidney disease stage IV with hyponatremia hypokalemia * Coronary artery disease with history of PCI Chronically elevated troponin * Dyslipidemia * Hypertension * History of BPH * Recent hospitalization for colitis * In regards to congestive heart failure acute exacerbation, continue patient on Lasix>> IV transitioned to oral, continue to monitor intake and output and daily weights * In regards to chronic kidney disease, nephrology consulted appreciate input * In regards to history of coronary artery disease, troponin minimally elevated, flat, EKG no changes for acute ischemia cardiology consulted continue medical management aspirin, Lipitor, Coreg, Brilanta , * In regards to history of hypertension continue Coreg, on Lasix * In regards to history of BPH continue terazosin, Flomax discontinued by nephrology * expected length of stay at least another 48-72 hours * CODE STATUS is FULL CODE Time with Patient: Greater than 30
--- NOTE | 2023-06-16 14:19 | P.PN ---
Subjective Progress Note Date: 06/16/23 PROGRESS NOTE BP 104/69, heart rate 86 kidney function is stable, tolerating by mouth diuretic. No new chest pain shortness of breath. HISTORY OF PRESENTING ILLNESS 73-year-old with PMH of CHF, ischemic adenopathy, CVA, was recently hospitalized for colitis and discharged home 10 days ago. He presented to the hospital because of shortness of breath dizziness and generalized weakness. WBC count of 8.1 hemoglobin 11.6 platelet count of 156, serum chemistry showed sodium of 134 potassium 2.8 carbon dioxide 24 BU and 40 2.5 to magnesium of 2.5 ALT of 15 AST 26 N-terminal proBNP of 26,000 ECG shows sinus rhythm with left bundle-branch block which is unchanged essentially LVEF 30-35% inferior hypokinesia from February 2023 Heart cath showed proximal mid LAD PCI, diagonal PCI by Dr. Rittre. 40-50% disease in mid RCA. REVIEW OF SYSTEMS 14 point review of system is negative except what is mentioned above in HPI. PHYSICAL EXAMINATION BP 108/64, heart rate 81 Lungs: Reduced air entry bilateral lower lung saini Heart: Regular rate and rhythm, S1-S2, no S3, no murmur or rub. Abdomen: Soft, mildly distended, mild tenderness Extremities: 1+ pitting edema. Neuro: Alert, oritented, detailed neuro exam was not performed ASSESSMENT Mild elevation of troponin at 0.06 with a flat pattern. 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 Continue Lasix 40 mg twice a day Increase Coreg to 6.25 mg twice a day. We are unable to intensify further heart failure medication as we are limited with blood pressure and kidney function. Objective - Vital Signs Vital signs: Vital Signs Temp 97.7 F 06/16/23 08:16 Pulse 86 06/16/23 11:29 Resp 17 06/16/23 11:29 BP 104/69 06/16/23 11:29 Pulse Ox 98 06/16/23 11:29 FiO2 Intake & Output 06/15/23 06/16/23 06/16/23 18:59 06:59 18:59 Intake Total 120 180 560 Output Total 400 600 Balance -280 -420 560 Weight 79.379 kg 77.8 kg Intake: Oral 120 180 560 Output: Urine 400 600 Other: Voiding Method Toilet Indwelling Catheter Indwelling Catheter Urinal # Voids 1 - Labs CBC & Chem 7: 06/16/23 07:24 06/16/23 07:24 Labs: Abnormal Lab Results - Last 24 Hours (Table) 06/16/23 06/16/23 Range/Units 07:24 07:24 RBC 3.71 L (4.30-5.90) m/uL Hgb 10.3 L (13.0-17.5) gm/dL Hct 31.8 L (39.0-53.0) % Plt Count 132 L (150-450) k/uL Sodium 134 L (137-145) mmol/L BUN 54 H (9-20) mg/dL Creatinine 2.75 H (0.66-1.25) mg/dL Glucose 104 H (74-99) mg/dL Magnesium 2.4 H (1.6-2.3) mg/dL
[2023-06-16] MEDS: carvediloL 6.25 MG TAB PO SCH (16:56)
[2023-06-16] MEDS: ATORVASTATIN 40 MG TAB PO SCH (20:36)
[2023-06-16] MEDS: DOXAZOSIN 1 MG TAB PO SCH (20:39)
[2023-06-17] MEDS: MIDODRINE 5 MG TAB PO SCH ×3 (06:20→16:32)
[2023-06-17] MEDS: PANTOPRAZOLE 40 MG TABLET PO SCH (06:20)
[2023-06-17] MEDS: carvediloL 6.25 MG TAB PO SCH ×2 (06:20→16:32)
[2023-06-17] MEDS: TICAGRELOR 90 MG TAB PO SCH ×2 (08:45→19:58)
[2023-06-17] MEDS: POTASSIUM CHLORIDE ER 20 MEQ TAB.ER PO SCH (08:45)
[2023-06-17] MEDS: GABAPENTIN 100 MG CAP PO SCH ×2 (08:45→19:58)
[2023-06-17] MEDS: ASPIRIN 81 MG PO SCH (08:45)
[2023-06-17] MEDS: FUROSEMIDE 40 MG TAB PO SCH ×2 (08:45→16:32)
[2023-06-17] MEDS: HEPARIN SODIUM,PORCINE 5,000 UNIT/ML 1 ML VIAL SQ SCH ×2 (08:45→19:58)
[2023-06-17 09:06] LABS: African American GFR (CKD) 25 (>60 ml/min/1.73 sqM); Anion Gap 9 mmol/L; Blood Urea Nitrogen 62 mg/dL (9-20); Calcium 8.5 mg/dL (8.4-10.2); Carbon Dioxide 25 mmol/L (22-30); Chloride 101 mmol/L (98-107); Glucose 94 mg/dL (74-99); Magnesium 2.3 mg/dL (1.6-2.3); Non-African American GFR(CKD) 21 (>60 ml/min/1.73 sqM); Potassium 4.1 mmol/L (3.5-5.1); Sodium 135 mmol/L (137-145)
[2023-06-17 09:15] LABS: Ferritin 78.9 ng/mL (22.0-322.0)
[2023-06-17 11:09] LABS: % Iron Saturation 8.85 (15.00-50.00)
--- NOTE | 2023-06-17 11:13 | P.PN ---
Subjective Patient is seen for follow-up for acute kidney injury and chronic kidney disease Diuretics switched to oral Creatinine slightly improved to 2.6 today No significant complaints today. Objective - Vital Signs Vital signs: Vital Signs Temp 98.1 F 06/17/23 08:00 Pulse 74 06/17/23 08:00 Resp 16 06/17/23 08:00 BP 107/67 06/17/23 08:00 Pulse Ox 98 06/17/23 08:00 FiO2 Intake & Output 06/16/23 06/17/23 06/17/23 18:59 06:59 18:59 Intake Total 785 10 360 Output Total 800 1125 Balance -15 -1115 360 Weight 78.2 kg Intake: IV 10 Invasive Line 1 10 Oral 785 360 Output: Urine 800 1125 Other: Voiding Method Indwelling Catheter Indwelling Catheter - Exam Patient is awake, comfortable, no acute distress Examination of the heart S1 and S2 Examination the lungs bilateral breath sounds are heard Abdomen is soft nontender Examination lower extremity shows no evidence of edema [employer] exam grossly intact - Labs CBC & Chem 7: 06/16/23 07:24 06/17/23 06:58 Labs: Abnormal Lab Results - Last 24 Hours (Table) 06/16/23 06/17/23 Range/Units 07:24 06:58 Sodium 135 L (137-145) mmol/L BUN 62 H (9-20) mg/dL Creatinine 2.62 H (0.66-1.25) mg/dL Iron 27 L (65-175) UG/DL % Saturation 8.85 L (15.00-50.00) Assessment and Plan Assessment: 1. Acute kidney injury secondary to ATN secondary to cardiorenal syndrome. Creatinine at 2.6 today. Diuretics have been switched to oral. CAT scan from earlier this month showed no evidence of hydronephrosis. UA fairly benign. 2. Chronic kidney disease stage IV with baseline creatinine near 2.2 secondary to nephrosclerosis and cardiorenal syndrome. 3. Urinary retention. Has Potts catheter. On doxazosin. 4. Hypokalemia from diuresis. Replaced. Better. 5. Coronary artery disease with cardiac stents. 6. Fluid overload. Improved with diuresis. 7. Acute on chronic systolic CHF with ejection fraction of 20-25% and mild to moderate mitral and tricuspid regurgitation. 8. Anemia of chronic kidney disease. Significant iron deficiency noted. Plan: Continue oral Lasix Add IV iron
[2023-06-17] MEDS ORDERED: SODIUM FERRIC GLUCONAT-SUCROSE 125 MG in SODIUM CHLORIDE 0.9% 100 ML IVPB ONE (12:00)
--- NOTE | 2023-06-17 12:32 | P.PN ---
Subjective HISTORY OF PRESENT ILLNESS: This is an 83-year-old male who follows in the office with Dr. Ritter. Patient examined this morning at the bedside. He is sitting up in the chair. Patient denies any chest pain or pressure. He denies any shortness of breath. He reports feeling mildly dizzy this morning. Telemetry reveals sinus mechanism. Vital signs are stable. PHYSICAL EXAM: VITAL SIGNS: Reviewed. GENERAL: Well-developed in no acute distress. NECK: Supple. No JVD or thyromegaly LUNGS: Respirations even and unlabored. Lungs essentially clear to auscultation bilaterally. HEART: Regular rate and rhythm. S1 and S2 heard. Systolic murmur noted. EXTREMITIES: Normal range of motion. No clubbing or cyanosis. Peripheral pulses intact. No lower extremity edema ASSESSMENT: Shortness of breath Acute on chronic heart failure with reduced EF, 2024% Ischemic relapse Coronary artery disease with PCI of the diagonal branch, proximal LAD, and mid LAD, February 2023 Hypertension Hyperlipidemia Acute on chronic kidney disease Abnormal troponins, likely secondary to above, no evidence of acute coronary syndrome Mild pulmonary hypertension PLAN: Continue to antiplatelet therapy secondary to recent stenting Continue high-intensity statin Patient has been transitioned to oral diuretics on 06/15/2023 Continue additional cardiac medications Patient not on a PARKER/ARB secondary to kidney function Repeat kidney function in a.m. If stable tomorrow, will add Farxiga Further recommendations pending patient's course Nurse practitioner note has been reviewed by physician. Signing provider agrees with the documented findings, assessment, and plan of care. Objective - Vital Signs Vital signs: Vital Signs Temp 98.1 F 06/17/23 08:00 Pulse 87 06/17/23 08:00 Resp 16 06/17/23 08:00 BP 107/67 06/17/23 08:00 Pulse Ox 98 06/17/23 08:00 FiO2 Intake & Output 06/16/23 06/17/23 06/17/23 18:59 06:59 18:59 Intake Total 785 10 360 Output Total 800 1125 Balance -15 1115 360 Weight 78.2 kg Intake: IV 10 Invasive Line 1 10 Oral 785 360 Output: Urine 800 1125 Other: Voiding Method Indwelling Catheter Indwelling Catheter Indwelling Catheter - Labs CBC & Chem 7: 06/16/23 07:24 06/17/23 06:58 Labs: Abnormal Lab Results - Last 24 Hours (Table) 06/16/23 06/17/23 Range/Units 07:24 06:58 Sodium 135 L (137-145) mmol/L BUN 62 H (9-20) mg/dL Creatinine 2.62 H (0.66-1.25) mg/dL Iron 27 L (65-175) UG/DL % Saturation 8.85 L (15.00-50.00)
[2023-06-17] MEDS: DOXAZOSIN 1 MG TAB PO SCH (19:58)
[2023-06-17] MEDS: ATORVASTATIN 40 MG TAB PO SCH (19:58)
[2023-06-18] MEDS: carvediloL 6.25 MG TAB PO SCH ×2 (06:30→17:40)
[2023-06-18] MEDS: PANTOPRAZOLE 40 MG TABLET PO SCH (06:30)
[2023-06-18] MEDS: MIDODRINE 5 MG TAB PO SCH ×3 (06:30→17:40)
[2023-06-18 09:03] LABS: African American GFR (CKD) 27 (>60 ml/min/1.73 sqM); Anion Gap 10 mmol/L; Blood Urea Nitrogen 64 mg/dL (9-20); Calcium 8.8 mg/dL (8.4-10.2); Carbon Dioxide 23 mmol/L (22-30); Chloride 102 mmol/L (98-107); Glucose 109 mg/dL (74-99); Non-African American GFR(CKD) 23 (>60 ml/min/1.73 sqM); Sodium 135 mmol/L (137-145)
[2023-06-18] MEDS: GABAPENTIN 100 MG CAP PO SCH ×2 (09:26→20:57)
[2023-06-18] MEDS: TICAGRELOR 90 MG TAB PO SCH ×2 (09:26→20:58)
[2023-06-18] MEDS: FUROSEMIDE 40 MG TAB PO SCH ×2 (09:26→17:40)
[2023-06-18] MEDS: HEPARIN SODIUM,PORCINE 5,000 UNIT/ML 1 ML VIAL SQ SCH ×2 (09:26→20:58)
[2023-06-18] MEDS: ASPIRIN 81 MG PO SCH (09:26)
[2023-06-18] MEDS: POTASSIUM CHLORIDE ER 20 MEQ TAB.ER PO SCH (09:26)
--- NOTE | 2023-06-18 09:53 | P.PN ---
Subjective HISTORY OF PRESENT ILLNESS: This is an 83-year-old male who follows in the office with Dr. Ritter. Patient examined this morning at the bedside. He is sitting up in the chair. Patient denies any chest pain or pressure. He denies any shortness of breath. He reports feeling mildly dizzy this morning. Telemetry reveals sinus mechanism. Vital signs are stable. June 18, 2023 Patient examined this morning at the bedside. Patient denies chest pain or pressure. He denies shortness of breath. Vital signs are stable. He remains on oral diuretics. Kidney function remained stable. Creatinine 2.43 today. Vital signs are stable. Blood pressure 110/69. PHYSICAL EXAM: VITAL SIGNS: Reviewed. GENERAL: Well-developed in no acute distress. NECK: Supple. No JVD or thyromegaly LUNGS: Respirations even and unlabored. Lungs with mild wheezing at the bases HEART: Regular rate and rhythm. S1 and S2 heard. Systolic murmur noted. EXTREMITIES: Normal range of motion. No clubbing or cyanosis. Peripheral pulses intact. No lower extremity edema ASSESSMENT: Shortness of breath Acute on chronic heart failure with reduced EF, 20-25% Ischemic cardiomyopathy Coronary artery disease with PCI of the diagonal branch, proximal LAD, and mid LAD, February 2023 Hypertension Hyperlipidemia Acute on chronic kidney disease Abnormal troponins, likely secondary to above, no evidence of acute coronary syndrome Mild pulmonary hypertension PLAN: Continue dual antiplatelet therapy secondary to recent stenting Continue high-intensity statin Patient not on a PARKER/ARB secondary to kidney function Will add Farxiga 10 mg daily Patient is currently stable for discharge from a cardiac standpoint Patient to follow-up postdischarge in the office with Dr. Ritter Nurse practitioner note has been reviewed by physician. Signing provider agrees with the documented findings, assessment, and plan of care. Objective - Vital Signs Vital signs: Vital Signs Temp 98.2 F 06/17/23 20:00 Pulse 96 06/18/23 04:00 Resp 18 06/18/23 04:00 BP 110/69 06/18/23 04:00 Pulse Ox 97 06/18/23 04:00 FiO2 Intake & Output 06/17/23 06/18/23 06/18/23 18:59 06:59 18:59 Intake Total 840 10 361 Output Total 400 734 648 Balance 440 -724 -287 Weight 77.7 kg Intake: IV 10 Invasive Line 2 10 Oral 840 361 Output: Urine 400 500 250 Straight 400 Post Void Residual 234 398 Other: Voiding Method Indwelling Catheter Urinal # Voids 1 # Bowel Movements 1 - Labs CBC & Chem 7: 06/16/23 07:24 06/18/23 07:46 Labs: Abnormal Lab Results - Last 24 Hours (Table) 06/16/23 06/18/23 Range/Units 07:24 07:46 Sodium 135 L (137-145) mmol/L BUN 64 H (9-20) mg/dL Creatinine 2.43 H (0.66-1.25) mg/dL Glucose 109 H (74-99) mg/dL Iron 27 L (65-175) UG/DL % Saturation 8.85 L (15.00-50.00)
--- NOTE | 2023-06-18 10:55 | P.PN ---
Subjective Progress Note Date: 06/17/23 * 83-year-old gentleman with past medical history significant for congestive heart failure systolic dysfunction, BPH, history of CVA, gastroesophageal reflux disease, degenerative disease of spine, was recently hospitalized with colitis and discharged home on 06/04/23 with plan to complete 10 day course of a ntibiotic * Patient presents back to the emergency department with complains of weakness, chest pain, shortness of breath, dizziness and generalized weakness * Workup initiated in ER included WBC count of 8.1 hemoglobin 11.6 platelet count of 156, serum chemistry showed sodium of 134 potassium 2.8 carbon dioxide 24 BU and 40 2.5 to magnesium of 2.5 ALT of 15 AST 26 N-terminal proBNP of 26,000 albumin of 3.8 initial troponin obtained in ER was 0.066, EKG obtained negative for acute ST segment changes * Patient has previously followed up with cardiology and had echocardiogram done April 2023 which showed ejection fraction of 20-25% and mild pulmonary hypertension and valvular heart disease * Chest x-ray obtained this admission shows pulmonary vascular congestion * Patient was started on IV Lasix and admitted to medical floor with consultation from cardiology as well as nephrology * 06/15/2023: Patient seen and evaluated bedside, patient is alert and oriented to person and situation. Patient states her breathing has improved, chest pain has improved as well and resolved. Blood work reviewed hemoglobin 10.7 WBC 7.7 serum chemistry showed sodium 135 creatinine 2.55 magnesium 2.4 patient seen by nephrology as well as cardiology * 06/16/2023: patient seen and evaluated at bedside, follow-up renal profile ordered creatinine 2.75, appreciate input from Cardiology as well as Nephrology patient will need physical therapy evaluation will likely need placement. Patient remains on room air at this point expected length of stay another 48 hours. Patient was noted to be hypotensive started on Midodrin * 06/17/2023. Patient is resting in the bed. Awake alert and oriented 3. On room air. No complaints of chest pain or worsening shortness of breath. Lasix has been changed to by mouth. No nausea vomiting abdominal pain or diarrhea. Tolerating oral diet. Laboratory data showed sodium 135, BUN 62 and creatinine 2.6 to. Nephrology and cardiology is on board. Patient is on Coreg 6.25 mg twice a day and Lasix 40 mg twice a day and Midodrin 10 mg 3 times a day before meals. Patient was started on IV iron. Objective - Vital Signs Vital signs: Vital Signs Temp 98.1 F 06/17/23 08:00 Pulse 74 06/17/23 08:00 Resp 16 06/17/23 08:00 BP 107/67 06/17/23 08:00 Pulse Ox 98 06/17/23 08:00 FiO2 Intake & Output 06/16/23 06/17/23 06/17/23 18:59 06:59 18:59 Intake Total 785 10 360 Output Total 800 1125 Balance -15 -1115 360 Weight 78.2 kg Intake: IV 10 Invasive Line 1 10 Oral 785 360 Output: Urine 800 1125 Other: Voiding Method Indwelling Catheter Indwelling Catheter - Exam PHYSICAL EXAMINATION: GENERAL: The patient is alert and oriented x3, chronically ill appearance , Potts catheter in place HEENT: Pupils are round and equally reacting to light. EOMI Normocephalic, atraumatic. No pharyngeal erythema. No thyromegaly. CARDIOVASCULAR: S1 and S2 present. No murmurs, rubs, or gallops. PULMONARY: Decreased breath sounds bilaterally ABDOMEN: Soft, nontender, nondistended, normoactive bowel sounds. No palpable organomegaly. MUSCULOSKELETAL: No joint swelling or deformity. EXTREMITIES: No cyanosis, clubbing, or pedal edema. NEUROLOGICAL: Gross neurological examination did not reveal any focal deficits. SKIN: No rashes. - Labs CBC & Chem 7: 06/16/23 07:24 06/18/23 07:46 Labs: Abnormal Lab Results - Last 24 Hours (Table) 06/17/23 Range/Units 06:58 Sodium 135 L (137-145) mmol/L BUN 62 H (9-20) mg/dL Creatinine 2.62 H (0.66-1.25) mg/dL Assessment and Plan Assessment: Assessment and plan * Acute on chronic congestive heart failure systolic dysfunction. Ejection fraction 20-25%. * Valvular heart disease, pulmonary hypertension mild * Acute kidney injury on Chronic kidney disease stage IV with hyponatremia hypokalemia * Coronary artery disease with history of PCI Chronically elevated troponin * Dyslipidemia * Hypertension * History of BPH * Recent hospitalization for colitis * In regards to congestive heart failure acute exacerbation, continue patient on Lasix>> IV transitioned to oral, continue to monitor intake and output and daily weights. Patient is on Midodrin * In regards to chronic kidney disease, nephrology consulted appreciate input * In regards to history of coronary artery disease, troponin minimally elevated, flat, EKG no changes for acute ischemia cardiology consulted continue medical management aspirin, Lipitor, Coreg, Brilanta , * In regards to history of hypertension continue Coreg, on Lasix * In regards to history of BPH continue terazosin, Flomax discontinued by nephrology * expected length of stay at least another 24-48 hours * CODE STATUS is FULL CODE Time with Patient: Greater than 30
--- NOTE | 2023-06-18 11:02 | P.PN ---
Subjective Patient is seen for follow-up for acute kidney injury and chronic kidney disease Diuretics switched to oral Creatinine improved to 2.4 today No significant complaints today. Objective - Vital Signs Vital signs: Vital Signs Temp 97.6 F 06/18/23 08:00 Pulse 76 06/18/23 08:00 Resp 16 06/18/23 08:00 BP 108/68 06/18/23 08:00 Pulse Ox 95 06/18/23 08:00 FiO2 Intake & Output 06/17/23 06/18/23 06/18/23 18:59 06:59 18:59 Intake Total 840 10 361 Output Total 851 673 1583 Balance 912 -706 -291 Weight 77.7 kg Intake: IV 10 Invasive Line 2 10 Oral 840 361 Output: Urine 400 500 450 Straight 400 Post Void Residual 234 853 Other: Voiding Method Indwelling Catheter Urinal Urinal # Voids 1 # Bowel Movements 1 - Exam Patient is awake, comfortable, no acute distress Examination of the heart S1 and S2 Examination the lungs bilateral breath sounds are heard Abdomen is soft nontender Examination lower extremity shows no evidence 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 Acute kidney injury secondary to ATN secondary to cardiorenal syndrome. Creatinine at 2.4 today. Diuretics have been switched to oral. CAT scan from earlier this month showed no evidence of hydronephrosis. UA fairly benign. 2. Chronic kidney disease stage IV with baseline creatinine near 2.2 secondary to nephrosclerosis and cardiorenal syndrome. 3. Urinary retention. Has Potts catheter. On doxazosin. 4. Hypokalemia from diuresis. Replaced. Better. 5. Coronary artery disease with cardiac stents. 6. Fluid overload. Improved with diuresis. 7. Acute on chronic systolic CHF with ejection fraction of 20-25% and mild to moderate mitral and tricuspid regurgitation. 8. Anemia of chronic kidney disease. Significant iron deficiency noted. Plan: Continue oral Lasix Repeat IV iron today
[2023-06-18] MEDS ORDERED: SODIUM FERRIC GLUCONAT-SUCROSE 125 MG in SODIUM CHLORIDE 0.9% 100 ML IVPB ONE (11:03)
[2023-06-18] MEDS: DAPAGLIFLOZIN PROPANEDIOL 10 MG TABLET PO SCH (11:25)
[2023-06-18 13:20] VITALS: BMI 24.5
--- NOTE | 2023-06-18 14:16 | P.GSCN ---
History of Present Illness Consult date: 06/18/23 Reason for Consult: Urinary retention History of present illness: This is an 83-year-old male admitted to the hospital with CHF exacerbation. Urology is consulted for urinary retention. Patient did have friend placed on admission for urinary retention, and subsequently Friend catheter was removed yesterday. His postvoid residual this morning was greater than 800 mL, subsequent a Friend catheter was reinserted. He does have history of BPH and is on doxazosin at baseline. He does have previous history of urinary retention last year following his carotid endarterectomy. Undergo a CT approximately 2 weeks ago that showed evidence of prostatomegaly, but no evidence of any kidney stones. He does complain of obstructive urinary symptoms at baseline, with straining with urination and urinary frequency. Denies any gross hematuria or d ysuria. Review of Systems - Constitutional Denies fever, Denies weight loss - EENT Ears, nose, mouth and throat: Denies dysphagia - Cardiovascular Reports leg edema, Reports shortness of breath - Respiratory Reports dyspnea - Gastrointestinal Reports as per HPI - Genitourinary Reports nocturia, Reports urinary retention, Denies dysuria, Denies hematuria - Integumentary Denies rash, Denies unusual bruising Past Medical History Past Medical History: Coronary Artery Disease (CAD), Heart Failure, CVA/TIA, GERD/Reflux, Hyperlipidemia, Hypertension, Myocardial Infarction (GA), Musculoskeletal Disorder, Osteoarthritis (OA), Prostate Disorder, Skin Disorder, Thyroid Disorder Additional Past Medical History / Comment(s): Lumbar disc disease, HERNIATED DISC IN BACK. Diverticular disease with diverticulosis, BPH, GA X2, unknown dates. lft leg weakness post cva (NO ASSISTED DEVICES). SHINGLES IN LEFT EYE. 03/19 cardiac stents Last Myocardial Infarction Date:: 03/2023 History of Any Multi-Drug Resistant Organisms: None Reported Past Surgical History: Adenoidectomy, Heart Catheterization With Stent, Joint Replacement, Tonsillectomy Additional Past Surgical History / Comment(s): Chato KNEE REPLACMENT. Colonoscopy with polypectomy, epidural steroid injections. carotid stents-23 Past Anesthesia/Blood Transfusion Reactions: No Reported Reaction Date of Last Stent Placement:: UNK Past Psychological History: No Psychological Hx Reported Smoking Status: Former smoker Past Alcohol Use History: Rare Additional Past Alcohol Use History / Comment(s): Quit smoking in 1966. Past Drug Use History: None Reported - Past Family History Sister(s) Family Medical History: Cancer Additional Family Medical History / Comment(s): Pancreatic cancer. Father History Unknown: Yes Family Medical History: Cancer Mother History Unknown: Yes Family Medical History: Congestive Heart Failure (CHF) Additional Family Medical History / Comment(s): AT AGE 94. Medications and Allergies Home Medications Medication Instructions Recorded Confirmed Type Atorvastatin [Lipitor] 40 mg PO HS #30 tab 11/21/22 06/14/23 Rx Aspirin 81 mg PO DAILY tab 03/22/23 06/14/23 Rx Ticagrelor [Brilinta] 90 mg PO BID #180 tab 03/22/23 06/14/23 Rx Gabapentin [Neurontin] 200 mg PO BID 04/25/23 06/14/23 History Lactulose 10 gm PO DAILY PRN 06/02/23 06/14/23 History Nitroglycerin Sl Tabs [Nitrostat] 0.4 mg SL Q5M PRN 06/02/23 06/14/23 History Omeprazole [PriLOSEC] 20 mg PO AC-BRKFST #30 cap 06/04/23 06/14/23 Rx Terazosin [Hytrin] 1 mg PO HS #30 cap 06/04/23 06/14/23 Rx Acetaminophen Tab [Tylenol] 650 mg PO Q6HR PRN tab 06/18/23 Rx Dapagliflozin Propanediol [Farxiga] 10 mg PO DAILY #30 tab 06/18/23 Rx Furosemide [Lasix] 40 mg PO BID@0900,1600 #60 tab 06/18/23 Rx Midodrine [ProAmatine] 10 mg PO AC-TID #90 tab 06/18/23 Rx carvediloL [Coreg] 6.25 mg PO BID-W/MEALS #60 tab 06/18/23 Rx Allergies Allergy/AdvReac Type Severity Reaction Status Date / Time No Known Allergies Allergy Verified 06/14/23 08:56 Surgical - Exam Vital Signs Temp Pulse Resp BP Pulse Ox 97.7 F 77 18 113/73 98 06/14/23 08:15 06/14/23 08:15 06/14/23 08:15 06/14/23 08:15 06/14/23 08:15 - General no distress, no pain - Eyes normal ocular movement, no pale - ENT normal nares, normal mucosa - Respiratory normal expansion, normal respiratory effort - Abdomen Abdomen: soft, non tender, no distended Results - Labs 06/16/23 07:24 06/18/23 07:46 Abnormal Lab Results - Last 24 Hours (Table) 06/18/23 Range/Units 07:46 Sodium 135 L (137-145) mmol/L BUN 64 H (9-20) mg/dL Creatinine 2.43 H (0.66-1.25) mg/dL Glucose 109 H (74-99) mg/dL Diabetes panel 06/18/23 Range/Units 07:46 Sodium 135 L (137-145) mmol/L Potassium 4.0 (3.5-5.1) mmol/L Chloride 102 (98-107) mmol/L Carbon Dioxide 23 (22-30) mmol/L BUN 64 H (9-20) mg/dL Creatinine 2.43 H (0.66-1.25) mg/dL Glucose 109 H (74-99) mg/dL Calcium 8.8 (8.4-10.2) mg/dL Calcium panel 06/18/23 Range/Units 07:46 Calcium 8.8 (8.4-10.2) mg/dL Pituitary panel 06/18/23 Range/Units 07:46 Sodium 135 L (137-145) mmol/L Potassium 4.0 (3.5-5.1) mmol/L Chloride 102 (98-107) mmol/L Carbon Dioxide 23 (22-30) mmol/L BUN 64 H (9-20) mg/dL Creatinine 2.43 H (0.66-1.25) mg/dL Glucose 109 H (74-99) mg/dL Calcium 8.8 (8.4-10.2) mg/dL Adrenal panel 06/18/23 Range/Units 07:46 Sodium 135 L (137-145) mmol/L Potassium 4.0 (3.5-5.1) mmol/L Chloride 102 (98-107) mmol/L Carbon Dioxide 23 (22-30) mmol/L BUN 64 H (9-20) mg/dL Creatinine 2.43 H (0.66-1.25) mg/dL Glucose 109 H (74-99) mg/dL Calcium 8.8 (8.4-10.2) mg/dL - Imaging CT scan - abdomen: image reviewed (No evidence of hydronephrosis, kidney stones. A large prostate) Assessment and Plan Assessment: 83-year-old male with underlying BPH on medical therapy, does have obstructive urinary symptoms at baseline. Most likely urinary retention his chronic. postvoid residuals greater than 800 mL's. Is on doxazosin a baseline. At this point recommend keeping Friend catheter, can have a repeat trial of void in 1 week. Given previous history urinary retention and recurrent urinary retention we will start on Proscar
[2023-06-18] MEDS: DOXAZOSIN 1 MG TAB PO SCH (20:58)
[2023-06-18] MEDS: ATORVASTATIN 40 MG TAB PO SCH (20:58)
[2023-06-18] MEDS: ACETAMINOPHEN TAB 325 MG TAB PO PRN (23:30)
[2023-06-19] MEDS: PANTOPRAZOLE 40 MG TABLET PO SCH (06:24)
[2023-06-19] MEDS: MIDODRINE 5 MG TAB PO SCH ×2 (06:24→11:56)
[2023-06-19] MEDS: carvediloL 6.25 MG TAB PO SCH (06:24)
[2023-06-19 08:39] VITALS: RESP 16
[2023-06-19 08:40] LABS: African American GFR (CKD) 25 (>60 ml/min/1.73 sqM); Anion Gap 10 mmol/L; Blood Urea Nitrogen 64 mg/dL (9-20); Calcium 8.7 mg/dL (8.4-10.2); Carbon Dioxide 24 mmol/L (22-30); Chloride 103 mmol/L (98-107); Glucose 88 mg/dL (74-99); Non-African American GFR(CKD) 22 (>60 ml/min/1.73 sqM); Potassium 3.8 mmol/L (3.5-5.1); Sodium 137 mmol/L (137-145)
[2023-06-19] MEDS ORDERED: FINASTERIDE 5 MG TAB PO SCH (09:00)
[2023-06-19] MEDS: GABAPENTIN 100 MG CAP PO SCH (09:04)
[2023-06-19] MEDS: HEPARIN SODIUM,PORCINE 5,000 UNIT/ML 1 ML VIAL SQ SCH (09:04)
[2023-06-19] MEDS: ASPIRIN 81 MG PO SCH (09:04)
[2023-06-19] MEDS: FUROSEMIDE 40 MG TAB PO SCH (09:04)
[2023-06-19] MEDS: TICAGRELOR 90 MG TAB PO SCH (09:05)
[2023-06-19] MEDS: DAPAGLIFLOZIN PROPANEDIOL 10 MG TABLET PO SCH (09:05)
[2023-06-19] MEDS: POTASSIUM CHLORIDE ER 20 MEQ TAB.ER PO SCH (09:05)
--- NOTE | 2023-06-19 10:41 | P.PN ---
Subjective Patient is seen for follow-up for acute kidney injury and chronic kidney disease Diuretics switched to oral Potts catheter was inserted as patient continued to have urine retention. Evaluated by urology and advised to continue with Potts catheter. Serum creatinine at 2.6 today. No significant complaints. Objective - Vital Signs Vital signs: Vital Signs Temp 98 F 06/19/23 08:00 Pulse 75 06/19/23 08:00 Resp 16 06/19/23 08:00 BP 113/61 06/19/23 08:00 Pulse Ox 94 L 06/19/23 08:00 FiO2 Intake & Output 06/18/23 06/19/23 06/19/23 18:59 06:59 18:59 Intake Total 959 10 225 Output Total 1728 1400 Balance -769 -1390 225 Weight 77.7 kg Intake: IV 10 Invasive Line 2 10 Oral 959 225 Output: Urine 875 1400 Uretheral (Potts) 425 Post Void Residual 853 Other: Voiding Method Urinal Indwelling Catheter Indwelling Catheter # Bowel Movements 1 2 - Exam Patient is awake, comfortable, no acute distress Examination of the heart S1 and S2 Examination the lungs bilateral breath sounds are heard Abdomen is soft nontender Examination lower extremity shows no evidence of edema 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 Acute kidney injury secondary to ATN secondary to cardiorenal syndrome. Creatinine at 2.6 today. Diuretics have been switched to oral. CAT scan from earlier this month showed no evidence of hydronephrosis. UA fairly benign. Significant urine retention noted again and Potts catheter was reinserted. 2. Chronic kidney disease stage IV with baseline creatinine near 2.2 secondary to nephrosclerosis and cardiorenal syndrome. 3. Urinary retention. Has Potts catheter. On doxazosin. 4. Hypokalemia from diuresis. Replaced. Better. 5. Coronary artery disease with cardiac stents. 6. Fluid overload. Improved with diuresis. 7. Acute on chronic systolic CHF with ejection fraction of 20-25% and mild to moderate mitral and tricuspid regurgitation. 8. Anemia of chronic kidney disease. Significant iron deficiency noted. Plan: Continue oral Lasix Repeat IV iron today Continue with Potts catheter. Follow-up with outpatient wound to 2 weeks.
--- NOTE | 2023-06-19 11:23 | P.PN ---
Subjective HISTORY OF PRESENT ILLNESS: This is an 83-year-old male who follows in the office with Dr. Ritter. Patient examined this morning at the bedside. He is sitting up in the chair. Patient denies any chest pain or pressure. He denies any shortness of breath. He reports feeling mildly dizzy this morning. Telemetry reveals sinus mechanism. Vital signs are stable. June 18, 2023 Patient examined this morning at the bedside. Patient denies chest pain or pressure. He denies shortness of breath. Vital signs are stable. He remains on oral diuretics. Kidney function remained stable. Creatinine 2.43 today. Vital signs are stable. Blood pressure 110/69. June 19, 2023 Patient examined this morning at bedside. Patient denies chest pain or pressure. He denies shortness of breath. He remains on oral diuretics. Creatinine today is stable at 2.6. Vital signs are stable. Patient was initially cleared for discharge yesterday. However this was canceled secondary to urinary retention. PHYSICAL EXAM: VITAL SIGNS: Reviewed. GENERAL: Well-developed in no acute distress. NECK: Supple. No JVD or thyromegaly LUNGS: Respirations even and unlabored. Lungs with mild wheezing at the bases HEART: Regular rate and rhythm. S1 and S2 heard. Systolic murmur noted. EXTREMITIES: Normal range of motion. No clubbing or cyanosis. Peripheral pulses intact. No lower extremity edema ASSESSMENT: Shortness of breath Acute on chronic heart failure with reduced EF, 20-25% Ischemic cardiomyopathy Coronary artery disease with PCI of the diagonal branch, proximal LAD, and mid LAD, February 2023 Hypertension Hyperlipidemia Acute on chronic kidney disease Abnormal troponins, likely secondary to above, no evidence of acute coronary syndrome Mild pulmonary hypertension Urinary retention PLAN: Continue dual antiplatelet therapy secondary to recent stenting Continue high-intensity statin Patient not on a PARKER/ARB secondary to kidney function Patient is currently stable for discharge from a cardiac standpoint Patient to follow-up postdischarge in the office with Dr. Ritter Nurse practitioner note has been reviewed by physician. Signing provider agrees with the documented findings, assessment, and plan of care. Objective - Vital Signs Vital signs: Vital Signs Temp 98 F 06/19/23 08:00 Pulse 75 06/19/23 08:00 Resp 16 06/19/23 08:00 BP 113/61 06/19/23 08:00 Pulse Ox 94 L 06/19/23 08:00 FiO2 Intake & Output 06/18/23 06/19/23 06/19/23 18:59 06:59 18:59 Intake Total 959 10 225 Output Total 1728 1400 Balance -769 -1390 225 Weight 77.7 kg Intake: IV 10 Invasive Line 2 10 Oral 959 225 Output: Urine 875 1400 Uretheral (Potts) 425 Post Void Residual 853 Other: Voiding Method Urinal Indwelling Catheter Indwelling Catheter # Bowel Movements 1 2 - Labs CBC & Chem 7: 06/16/23 07:24 06/19/23 07:29 Labs: Abnormal Lab Results - Last 24 Hours (Table) 06/19/23 Range/Units 07:29 BUN 64 H (9-20) mg/dL Creatinine 2.60 H (0.66-1.25) mg/dL
[2023-06-19] MEDS ORDERED: SODIUM FERRIC GLUCONAT-SUCROSE 125 MG in SODIUM CHLORIDE 0.9% 100 ML IVPB ONE (11:30)
[2023-06-19 12:02] VITALS: BP 112/61; PULSE 76; TEMP 97.5
--- NOTE | 2023-06-19 22:20 | P.PN ---
Subjective Progress Note Date: 06/18/23 * 83-year-old gentleman with past medical history significant for congestive heart failure systolic dysfunction, BPH, history of CVA, gastroesophageal reflux disease, degenerative disease of spine, was recently hospitalized with colitis and discharged home on 06/04/23 with plan to complete 10 day course of a ntibiotic * Patient presents back to the emergency department with complains of weakness, chest pain, shortness of breath, dizziness and generalized weakness * Workup initiated in ER included WBC count of 8.1 hemoglobin 11.6 platelet count of 156, serum chemistry showed sodium of 134 potassium 2.8 carbon dioxide 24 BU and 40 2.5 to magnesium of 2.5 ALT of 15 AST 26 N-terminal proBNP of 26,000 albumin of 3.8 initial troponin obtained in ER was 0.066, EKG obtained negative for acute ST segment changes * Patient has previously followed up with cardiology and had echocardiogram done April 2023 which showed ejection fraction of 20-25% and mild pulmonary hypertension and valvular heart disease * Chest x-ray obtained this admission shows pulmonary vascular congestion * Patient was started on IV Lasix and admitted to medical floor with consultation from cardiology as well as nephrology * 06/15/2023: Patient seen and evaluated bedside, patient is alert and oriented to person and situation. Patient states her breathing has improved, chest pain has improved as well and resolved. Blood work reviewed hemoglobin 10.7 WBC 7.7 serum chemistry showed sodium 135 creatinine 2.55 magnesium 2.4 patient seen by nephrology as well as cardiology * 06/16/2023: patient seen and evaluated at bedside, follow-up renal profile ordered creatinine 2.75, appreciate input from Cardiology as well as Nephrology patient will need physical therapy evaluation will likely need placement. Patient remains on room air at this point expected length of stay another 48 hours. Patient was noted to be hypotensive started on Midodrin * 06/17/2023. Patient is resting in the bed. Awake alert and oriented 3. On room air. No complaints of chest pain or worsening shortness of breath. Lasix has been changed to by mouth. No nausea vomiting abdominal pain or diarrhea. Tolerating oral diet. Laboratory data showed sodium 135, BUN 62 and creatinine 2.6 to. Nephrology and cardiology is on board. Patient is on Coreg 6.25 mg twice a day and Lasix 40 mg twice a day and Midodrin 10 mg 3 times a day before meals. Patient was started on IV iron. 06/18/2023 Patient is currently resting in bed. Awake alert and oriented x 3. No complaints of chest pain or shortness of breath. No fever no chills. Renal function is stable. Otherwise patient is retaining urine with bladder scan showing greater than 450 cc. Potts catheter was placed. Urology was consulted and recommended continue Potts catheter for now and recommend to start on Proscar tomorrow. Patient able to tolerate oral diet. No nausea or vomiting abdominal pain or diarrhea. Objective - Vital Signs Vital signs: Vital Signs Temp 97.3 F L 06/18/23 16:00 Pulse 82 06/18/23 16:00 Resp 18 06/18/23 16:00 BP 152/74 06/18/23 16:00 Pulse Ox 97 06/18/23 16:00 FiO2 Intake & Output 06/18/23 06/18/23 06/19/23 06:59 18:59 06:59 Intake Total 10 959 Output Total 734 1728 Balance -724 -769 Weight 77.7 kg 77.7 kg Intake: IV 10 Invasive Line 2 10 Oral 959 Output: Urine 500 875 Uretheral (Potts) 425 Post Void Residual 234 853 Other: Voiding Method Urinal Urinal # Bowel Movements 1 - Exam PHYSICAL EXAMINATION: GENERAL: The patient is alert and oriented x3, chronically ill appearance , Potts catheter in place HEENT: Pupils are round and equally reacting to light. EOMI Normocephalic, atraumatic. No pharyngeal erythema. No thyromegaly. CARDIOVASCULAR: S1 and S2 present. No murmurs, rubs, or gallops. PULMONARY: Decreased breath sounds bilaterally ABDOMEN: Soft, nontender, nondistended, normoactive bowel sounds. No palpable organomegaly. MUSCULOSKELETAL: No joint swelling or deformity. EXTREMITIES: No cyanosis, clubbing, or pedal edema. NEUROLOGICAL: Gross neurological examination did not reveal any focal deficits. SKIN: No rashes. - Labs CBC & Chem 7: 06/16/23 07:24 06/19/23 07:29 Labs: Abnormal Lab Results - Last 24 Hours (Table) 06/18/23 Range/Units 07:46 Sodium 135 L (137-145) mmol/L BUN 64 H (9-20) mg/dL Creatinine 2.43 H (0.66-1.25) mg/dL Glucose 109 H (74-99) mg/dL Assessment and Plan Assessment: Assessment and plan * Acute on chronic congestive heart failure systolic dysfunction. Ejection fraction 20-25%. * Acute urinary retention * Valvular heart disease, pulmonary hypertension mild * Acute kidney injury on Chronic kidney disease stage IV with hyponatremia hypokalemia * Coronary artery disease with history of PCI Chronically elevated troponin * Dyslipidemia * Hypertension * History of BPH * Recent hospitalization for colitis * In regards to congestive heart failure acute exacerbation, continue patient on Lasix>> IV transitioned to oral, continue to monitor intake and output and daily weights. Patient is on Midodrin * In regards to chronic kidney disease, nephrology consulted appreciate input * In regards to history of coronary artery disease, troponin minimally elevated, flat, EKG no changes for acute ischemia cardiology consulted continue medical management aspirin, Lipitor, Coreg, Brilanta , * In regards to history of hypertension continue Coreg, on Lasix * In regards to history of BPH continue terazosin, Flomax discontinued by nephrology.Potts catheter was placed due to urinary retention. Urology was consulted in the morning starting on close Tomorrow. Trial of void in a week. * expected length of stay at least another 24-48 hours * CODE STATUS is FULL CODE Time with Patient: Greater than 30
== END 2023-06-19 15:05 | disposition home health service (06) | DRG 291 ==
LOC: EC 08:03 → 3SCARD 10:27
PROVIDERS: ADMIT Internal Medicine; ATTEND Internal Medicine
DX: I13.0 Hypertensive heart and chronic kidney disease with heart failure and stage 1 through stage 4 chronic kidney disease, or unspecified chronic kidney disease (principal); I50.23 Acute on chronic systolic (congestive) heart failure; N17.0 Acute kidney failure with tubular necrosis; E87.1 Hypo-osmolality and hyponatremia; N18.4 Chronic kidney disease, stage 4 (severe); I25.110 Atherosclerotic heart disease of native coronary artery with unstable angina pectoris; I08.1 Rheumatic disorders of both mitral and tricuspid valves; D63.1 Anemia in chronic kidney disease; E11.22 Type 2 diabetes mellitus with diabetic chronic kidney disease; E61.1 Iron deficiency; E78.5 Hyperlipidemia, unspecified; E87.6 Hypokalemia; I25.2 Old myocardial infarction; I25.5 Ischemic cardiomyopathy; I27.20 Pulmonary hypertension, unspecified; I44.7 Left bundle-branch block, unspecified; K21.9 Gastro-esophageal reflux disease without esophagitis; M51.36 Other intervertebral disc degeneration, lumbar region; T50.2X5A Adverse effect of carbonic-anhydrase inhibitors, benzothiadiazides and other diuretics, initial encounter; Z96.653 Presence of artificial knee joint, bilateral; M19.90 Unspecified osteoarthritis, unspecified site; K57.90 Diverticulosis of intestine, part unspecified, without perforation or abscess without bleeding; R79.89 Other specified abnormal findings of blood chemistry; N40.1 Benign prostatic hyperplasia with lower urinary tract symptoms; R33.8 Other retention of urine; Z79.02 Long term (current) use of antithrombotics/antiplatelets; Z79.82 Long term (current) use of aspirin; Z79.84 Long term (current) use of oral hypoglycemic drugs; Z79.899 Other long term (current) drug therapy; Z82.49 Family history of ischemic heart disease and other diseases of the circulatory system; Z86.73 Personal history of transient ischemic attack (TIA), and cerebral infarction without residual deficits; Z95.5 Presence of coronary angioplasty implant and graft; Z86.19 Personal history of other infectious and parasitic diseases
CPT/HCPCS: 36415; 71045; 71046; 80048; 80053; 81003; 82728; 83540; 83550; 83735; 83880; 84132; 84484; 85025; 85027; 85610; 85730; 93005

== ENCOUNTER 2023-06-25 14:22 | Inpatient (IN) | payer MEDICARE, BC ==
[2023-06-25] MEDS ORDERED: ASPIRIN 81 MG PO STA (14:40)
[2023-06-25] MEDS ORDERED: NITROGLYCERIN OINT 1 INCH/GM PACKET TOPICAL STA (14:40)
--- NOTE | 2023-06-25 14:43 | ED ---
General Adult HPI - General Chief complaint: Chest Pain Stated complaint: Chest Pain Time Seen by Provider: 06/25/23 14:26 Source: patient, RN notes reviewed, old records reviewed Mode of arrival: EMS Limitations: no limitations - History of Present Illness Initial comments: Patient is a pleasant 83-year-old male presenting to the emergency department w ith concerns with chest pain. Onset of symptoms was prior to arrival. Discomfort was severe and felt like an ache in the anterior chest. No radiation. Symptoms now resolved. Patient does have history of similar symptoms previously. Patient does have some associated dyspnea however this is chronic and unchanged. No associated nausea or diaphoresis. Currently patient is symptom-free. - Related Data Home Medications Medication Instructions Recorded Confirmed Gabapentin [Neurontin] 200 mg PO BID 04/25/23 06/14/23 Lactulose 10 gm PO DAILY PRN 06/02/23 06/14/23 Nitroglycerin Sl Tabs [Nitrostat] 0.4 mg SL Q5M PRN 06/02/23 06/14/23 Previous Rx's Medication Instructions Recorded Atorvastatin [Lipitor] 40 mg PO HS #30 tab 11/21/22 Aspirin 81 mg PO DAILY tab 03/22/23 Ticagrelor [Brilinta] 90 mg PO BID #180 tab 03/22/23 Omeprazole [PriLOSEC] 20 mg PO AC-BRKFST #30 cap 06/04/23 Terazosin [Hytrin] 1 mg PO HS #30 cap 06/04/23 Acetaminophen Tab [Tylenol] 650 mg PO Q6HR PRN tab 06/18/23 Furosemide [Lasix] 40 mg PO BID@0900,1600 #60 tab 06/18/23 Midodrine [ProAmatine] 10 mg PO AC-TID #90 tab 06/18/23 carvediloL [Coreg] 6.25 mg PO BID-W/MEALS #60 tab 06/18/23 Finasteride [Proscar] 5 mg PO DAILY #30 tab 06/19/23 Allergies Allergy/AdvReac Type Severity Reaction Status Date / Time No Known Allergies Allergy Verified 06/25/23 14:27 Review of Systems ROS Statement: Those systems with pertinent positive or pertinent negative responses have been documented in the HPI. ROS Other: All systems not noted in ROS Statement are negative. Constitutional: Denies: fever Eyes: Denies: eye pain ENT: Denies: ear pain Respiratory: Reports: as per HPI. Denies: cough Cardiovascular: Reports: as per HPI, chest pain Endocrine: Denies: fatigue Gastrointestinal: Denies: abdominal pain Past Medical History Past Medical History: Coronary Artery Disease (CAD), Heart Failure, CVA/TIA, GERD/Reflux, Hyperlipidemia, Hypertension, Myocardial Infarction (NH), Musculoskeletal Disorder, Osteoarthritis (OA), Prostate Disorder, Skin Disorder, Thyroid Disorder Additional Past Medical History / Comment(s): Lumbar disc disease, HERNIATED DISC IN BACK. Diverticular disease with diverticulosis, BPH, [place] X2, unknown dates. lft leg weakness post cva (NO ASSISTED DEVICES). SHINGLES IN LEFT EYE. 03/19 cardiac stents Last Myocardial Infarction Date:: 03/2023 History of Any Multi-Drug Resistant Organisms: None Reported Past Surgical History: Adenoidectomy, Heart Catheterization With Stent, Joint Re placement, Tonsillectomy Additional Past Surgical History / Comment(s): Chato KNEE REPLACMENT. Colonoscopy with polypectomy, epidural steroid injections. carotid stents-23 Past Anesthesia/Blood Transfusion Reactions: No Reported Reaction Date of Last Stent Placement:: UNK Past Psychological History: No Psychological Hx Reported Smoking Status: Former smoker Past Alcohol Use History: Rare Past Drug Use History: None Reported - Past Family History Sister(s) Family Medical History: Cancer Additional Family Medical History / Comment(s): Pancreatic cancer. Father History Unknown: Yes Family Medical History: Cancer Mother History Unknown: Yes Family Medical History: Congestive Heart Failure (CHF) Additional Family Medical History / Comment(s): AT AGE 94. General Exam Limitations: no limitations General appearance: alert, in no apparent distress Head exam: Present: normocephalic Eye exam: Present: normal appearance Neck exam: Present: normal inspection Respiratory exam: Present: normal lung sounds bilaterally Cardiovascular Exam: Present: regular rate, normal rhythm Expanded Peripheral pulses: 2+: Radial (R), Radial (L), Dorsalis Pedis (R), Dorsalis Pedis (L) GI/Abdominal exam: Present: soft. Absent: tenderness Extremities exam: Present: normal inspection. Absent: pedal edema, calf tenderness Neurological exam: Present: alert Psychiatric exam: Present: normal affect, normal mood Skin exam: Present: normal color Course Vital Signs 01/30/24 01/30/24 14:24 15:45 Temperature 97.6 F Pulse Rate 73 66 Respiratory 16 16 Rate Blood Pressure 133/85 129/85 O2 Sat by Pulse 95 100 Oximetry EKG Findings - EKG Results: EKG: interpreted by PRESTON (Left axis. Left bundle branch block. Septal Q waves.), sinus rhythm Medical Decision Making - Medical Decision Making Was pt. sent in by a medical professional or institution (, PA, SOLAR INSTALLATION MANAGER, urgent c are, hospital, or [place] [facility] care facility...) When possible be specific @ -No Did you speak to anyone other than the patient for history (EMS, parent, family, police, friend...)? What history was obtained from this source @ -No Did you review nursing and triage notes (agree or disagree)? Why? @ -I reviewed and agree with nursing and triage notes Were old charts reviewed (outside hosp., previous admission, EMS record, old EKG, old radiological studies, urgent care reports/EKG's, [place] health care facility records)? Report findings @ -Previous chest x-ray reviewed Differential Diagnosis (chest pain, altered mental status, abdominal pain women, abdominal pain men, vaginal bleeding, weakness, fever, dyspnea, syncope, headache, dizziness, GI bleed, back pain, seizure, CVA, palpatations, mental health, musculoskeletal)? @ -Differential Chest Pain: Stable Angina, Unstable Angina, STEMI, NSTEMI Aortic Dissection, Pneumothorax, Musculoskeletal, Esophageal Spasm GERD, Cholecystitis, Pancreatitis, Zoster, this is not meant to be an all-inclusive list. EKG interpreted by me (3pts min.). @ -As above X-rays interpreted by me (1pt min.). @ -Chest x-ray shows question will change his right lower lobe CT interpreted by me (1pt min.). @ -None done U/S interpreted by me (1pt. min.). @ -None done What testing was considered but not performed or refused? (CT, X-rays, U/S, labs)? Why? @ -Consider CT angiogram however renal function will not allow this. We'll order a VQ scan. What meds were considered but not given or refused? Why? @ -None Did you discuss the management of the patient with other professionals (professionals i.e. , DEMETRIUS, SOLAR INSTALLATION MANAGER, lab, RT, psych nurse, social service agency director, body repairer, teacher, alumni relations officer, family caseworker)? Give summary @ -Case was discussed with Dr. horvath, who will admit covering Dr. Adames Was smoking cessation discussed for >3mins.? @ -No Was critical care preformed (if so, how long)? @ -33 minutes critical care time Were there social determinants of health that impacted care today? How? (Homelessness, low income, unemployed, alcoholism, drug addiction, transportation, low edu. Level, literacy, decrease access to med. care, alf, rehab)? @ -No Was there de-escalation of care discussed even if they declined (Discuss DNR or withdrawal of care, Hospice)? DNR status @ -No What co-morbidities impacted this encounter? (DM, HTN, Smoking, COPD, CAD, Cancer, CVA, ARF, Chemo, Hep., AIDS, mental health diagnosis, sleep apnea, morbid obesity)? @ -None Was patient admitted / discharged? Hospital course, mention meds given and route, prescriptions, significant lab abnormalities, going to OR and other pertinent info. @ -Patient reevaluated and resting comfortably in bed. Patient symptom free at this time. Patient will be admitted with cardiac consult. Heart enzymes will be rechecked. Admission orders written. Undiagnosed new problem with uncertain prognosis? @ -No Drug Therapy requiring intensive monitoring for toxicity (Heparin, Nitro, I nsulin, Cardizem)? @ -Patient will be started on heparin secondary to mild change of troponin and pending VQ scan. Were any procedures done? @ -No Diagnosis/symptom? @ -Chest pain Acute, or Chronic, or Acute on Chronic? @ -Acute Uncomplicated (without systemic symptoms) or Complicated (systemic symptoms)? @ -default Side effects of treatment? @ -No Exacerbation, Progression, or Severe Exacerbation? @ -No Poses a threat to life or bodily function? How? (Chest pain, USA, NH, pneumonia, PE, COPD, DKA, ARF, appy, cholecystitis, CVA, Diverticulitis, Homicidal, Suicidal, threat to staff... and all critical care pts) @ -No - Lab Data Result diagrams: 06/25/23 14:51 06/25/23 14:51 Lab Results 06/25/23 06/25/23 06/25/23 Range/Units 14:51 14:51 14:51 WBC 7.0 (3.8-10.6) k/uL RBC 3.68 L (4.30-5.90) m/uL Hgb 10.4 L (13.0-17.5) gm/dL Hct 31.2 L (39.0-53.0) % MCV 84.7 (80.0-100.0) fL MCH 28.3 (25.0-35.0) pg MCHC 33.3 (31.0-37.0) g/dL RDW 16.1 H (11.5-15.5) % Plt Count 180 (150-450) k/uL MPV 9.3 Neutrophils % 60 % Lymphocytes % 27 % Monocytes % 6 % Eosinophils % 4 % Basophils % 0 % Neutrophils # 4.2 (1.3-7.7) k/uL Lymphocytes # 1.9 (1.0-4.8) k/uL Monocytes # 0.4 (0-1.0) k/uL Eosinophils # 0.3 (0-0.7) k/uL Basophils # 0.0 (0-0.2) k/uL Anisocytosis Slight PT 10.9 (10.0-12.5) sec INR 1.0 (<1.2) APTT 26.0 (22.0-30.0) sec D-Dimer 1.57 H (<0.60) mg/L FEU Sodium 133 L (137-145) mmol/L Potassium 3.8 (3.5-5.1) mmol/L Chloride 99 (98-107) mmol/L Carbon Dioxide 24 (22-30) mmol/L Anion Gap 10 mmol/L BUN 54 H (9-20) mg/dL Creatinine 2.51 H (0.66-1.25) mg/dL Est GFR (CKD-EPI)AfAm 26 (>60 ml/min/1.73 sqM) Est GFR (CKD-EPI)NonAf 23 (>60 ml/min/1.73 sqM) Glucose 104 H (74-99) mg/dL Calcium 8.5 (8.4-10.2) mg/dL Magnesium 2.4 H (1.6-2.3) mg/dL Total Bilirubin 0.6 (0.2-1.3) mg/dL AST 21 (17-59) U/L ALT 22 (4-49) U/L Alkaline Phosphatase 89 (38-126) U/L Troponin I (0.000-0.034) ng/mL Total Protein 6.1 L (6.3-8.2) g/dL Albumin 3.4 L (3.5-5.0) g/dL 06/25/23 Range/Units 14:51 WBC (3.8-10.6) k/uL RBC (4.30-5.90) m/uL Hgb (13.0-17.5) gm/dL Hct (39.0-53.0) % MCV (80.0-100.0) fL MCH (25.0-35.0) pg MCHC (31.0-37.0) g/dL RDW (11.5-15.5) % Plt Count (150-450) k/uL MPV Neutrophils % % Lymphocytes % % Monocytes % % Eosinophils % % Basophils % % Neutrophils # (1.3-7.7) k/uL Lymphocytes # (1.0-4.8) k/uL Monocytes # (0-1.0) k/uL Eosinophils # (0-0.7) k/uL Basophils # (0-0.2) k/uL Anisocytosis PT (10.0-12.5) sec INR (<1.2) APTT (22.0-30.0) sec D-Dimer (<0.60) mg/L FEU Sodium (137-145) mmol/L Potassium (3.5-5.1) mmol/L Chloride (98-107) mmol/L Carbon Dioxide (22-30) mmol/L Anion Gap mmol/L BUN (9-20) mg/dL Creatinine (0.66-1.25) mg/dL Est GFR (CKD-EPI)AfAm (>60 ml/min/1.73 sqM) Est GFR (CKD-EPI)NonAf (>60 ml/min/1.73 sqM) Glucose (74-99) mg/dL Calcium (8.4-10.2) mg/dL Magnesium (1.6-2.3) mg/dL Total Bilirubin (0.2-1.3) mg/dL AST (17-59) U/L ALT (4-49) U/L Alkaline Phosphatase (38-126) U/L Troponin I 0.040 H* (0.000-0.034) ng/mL Total Protein (6.3-8.2) g/dL Albumin (3.5-5.0) g/dL Disposition Clinical Impression: Chest pain Disposition: ADMITTED IP TO THIS HOSP Is patient prescribed a controlled substance at d/c from ED?: No Referrals: Armen Adames MD [Primary Care Provider] - 1-2 days Time of Disposition: 16:02
[2023-06-25 15:06] LABS: Anisocytosis Slight; Basophils % (A) 0 %; Eosinophils # (A) 0.3 k/uL (0-0.7); Eosinophils % (A) 4 %; HCT 31.2 % (39.0-53.0); HGB 10.4 gm/dL (13.0-17.5); Lymphocytes # (A) 1.9 k/uL (1.0-4.8); Lymphocytes % (A) 27 %; MCH 28.3 pg (25.0-35.0); MCHC 33.3 g/dL (31.0-37.0); MCV 84.7 fL (80.0-100.0); Mean Platelet Volume 9.3; Monocytes # (A) 0.4 k/uL (0-1.0); Monocytes % (A) 6 %; Neutrophils # (A) 4.2 k/uL (1.3-7.7); Neutrophils % (A) 60 %; Platelet Count 180 k/uL (150-450); RBC 3.68 m/uL (4.30-5.90); RDW 16.1 % (11.5-15.5)
[2023-06-25 15:23] LABS: Prothrombin Time 10.9 sec (10.0-12.5)
[2023-06-25 15:41] LABS: ALT 22 U/L (4-49); AST 21 U/L (17-59); African American GFR (CKD) 26 (>60 ml/min/1.73 sqM); Albumin 3.4 g/dL (3.5-5.0); Alkaline Phosphatase 89 U/L (38-126); Anion Gap 10 mmol/L; Blood Urea Nitrogen 54 mg/dL (9-20); Calcium 8.5 mg/dL (8.4-10.2); Carbon Dioxide 24 mmol/L (22-30); Chloride 99 mmol/L (98-107); Glucose 104 mg/dL (74-99); Magnesium 2.4 mg/dL (1.6-2.3); Non-African American GFR(CKD) 23 (>60 ml/min/1.73 sqM); Potassium 3.8 mmol/L (3.5-5.1); Sodium 133 mmol/L (137-145); Total Bilirubin 0.6 mg/dL (0.2-1.3); Total Protein 6.1 g/dL (6.3-8.2)
[2023-06-25] MEDS ORDERED: HEPARIN SODIUM 1,000 UN/ML (10ML VL) IV PRN (16:03)
[2023-06-25] MEDS ORDERED: HEPARIN SODIUM 1,000 UN/ML (10ML VL) IV ONE (16:03)
[2023-06-25] MEDS ORDERED: NITROGLYCERIN SL TABS 0.4 MG TAB SUBLINGUAL PRN ×2 (16:04→21:59)
--- NOTE | 2023-06-25 16:04 | XR ---
EXAMINATION TYPE: XR chest 2V DATE OF EXAM: 06/25/2023 COMPARISON: 06/16/2023 HISTORY: 83-year-old male with chest pain TECHNIQUE: AP and lateral views FINDINGS: Heart mildly enlarged. Diffuse interstitial opacity. Scattered Heather B lines in the lower lungs. Sma ll bilateral pleural effusions. IMPRESSION: CHF with early interstitial pulmonary edema. Small bilateral pleural effusions.
[2023-06-25 16:14] LABS: NT-Pro-B-Type Natriuretic Pept 38600 pg/mL
[2023-06-25] MEDS ORDERED: HEPARIN SOD,PORK IN 0.45% NACL 25,000 UNIT in 0.45% NACL 1 250ML.BAG IV SCH (16:15)
[2023-06-25] MEDS: NITROGLYCERIN OINT 1 INCH/GM PACKET TOPICAL SCH ×2 (17:21→23:35)
--- NOTE | 2023-06-25 21:17 | NM ---
EXAMINATION TYPE: NM pul perfusion DATE OF EXAM: 06/25/2023 COMPARISON: Same day 2V chest x-ray 3:56 PM CLINICAL INDICATION: Male, 83 years old with history of dyspnea; TECHNIQUE: Following IV administration of 5.14 mCi Tc 99m MAA, perfusion images obtained post injection in multi ple projections. The patient was unable to tolerate ventilation study. FINDINGS: Mildly decreased activity at the lung bases seems to correlate to the small pleural effusions. Somewh at heterogeneous tracer activity is seen with no large or moderate segmental defects seen. Small segm ental defects could be present. IMPRESSION: Nondiagnostic (low or intermediate probability), pulmonary perfusion-only scan. Note: Interpretation is based on perfusion-only modified PIOPED 2 criteria.
--- NOTE | 2023-06-25 22:12 | P.HPIM ---
History of Present Illness This is a pleasant 83 years old male with past medical history of coronary artery disease status post PCI to diagonal branch, proximal LAD and mid LAD in February 2023. Chronic systolic CHF with low ejection fraction, chronic kidney disease stage IV. Patient presents because of chest pain started 2 hours ago about 10/10 in severity and the middle of the chest going all over the front part felt like DL and then sharp With her shortness of breath but no coughing He states he is on Plavix and WAS at home and he was taking them Currently he feels generally weak. 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 Zuniga He denies smoking alcohol or illicit drugs No change in urine or bowel habits or weakness dizziness numbness. Blood pressure is 1:30/96, rest of vital signs stable Hemoglobin 10.4, creatinine at baseline 2.5 D-dimer elevated at 1.5 but perfusion scan showing nondiagnostic results Elevated troponin Elevated proBNP 97304. Chest x-ray showing CHF EKG shows sinus rhythm at [address]-T changes Review of Systems Review of systems CONSTITUTIONAL: No fever, no malaise, no fatigue. HEENT: No recent visual problems or hearing problems. Denied any sore throat. CARDIOVASCULAR: No orthopnea, PND, no palpitations, no syncope. PULMONARY: no cough, no hemoptysis. GASTROINTESTINAL: No diarrhea, no nausea, no vomiting, no abdominal pain. Normoactive bowel sounds. NEUROLOGICAL: No headaches, no weakness, no numbness. HEMATOLOGICAL: Denies any bleeding or petechiae. GENITOURINARY: Denies any burning micturition, frequency, or urgency. MUSCULOSKELETAL/RHEUMATOLOGICAL: Denies any joint pain, swelling, or any muscle pain. ENDOCRINE: Denies any polyuria or polydipsia. 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 Diverticular disease with diverticulosis, BPH, PR X2, unknown dates. lft leg weakness post cva (NO ASSISTED DEVICES). SHINGLES IN LEFT EYE. 03/19 cardiac stents Last Myocardial Infarction Date:: 03/2023 History of Any Multi-Drug Resistant Organisms: None Reported Past Surgical History: Adenoidectomy, Heart Catheterization With Stent, Joint Replacement, Tonsillectomy Additional Past Surgical History / Comment(s): Chato KNEE REPLACMENT. Colonoscopy with polypectomy, epidural steroid injections. carotid stents-23 Past Anesthesia/Blood Transfusion Reactions: No Reported Reaction Date of Last Stent Placement:: UNK Past Psychological History: No Psychological Hx Reported Smoking Status: Former smoker Past Alcohol Use History: Rare Past Drug Use History: None Reported - Past Family History Sister(s) Family Medical History: Cancer Additional Family Medical History / Comment(s): Pancreatic cancer. Father History Unknown: Yes Family Medical History: Cancer Mother History Unknown: Yes Family Medical History: Congestive Heart Failure (CHF) Additional Family Medical History / Comment(s): AT AGE 94. Medications and Allergies Home Medications Medication Instructions Recorded Confirmed Type Atorvastatin [Lipitor] 40 mg PO HS #30 tab 11/21/22 06/25/23 Rx Aspirin 81 mg PO DAILY tab 03/22/23 06/25/23 Rx Gabapentin [Neurontin] 200 mg PO BID 04/25/23 06/25/23 History Lactulose 10 gm PO DAILY PRN 06/02/23 06/25/23 History Nitroglycerin Sl Tabs [Nitrostat] 0.4 mg SL Q5M PRN 06/02/23 06/25/23 History Omeprazole [PriLOSEC] 20 mg PO AC-BRKFST #30 cap 06/04/23 06/25/23 Rx Acetaminophen Tab [Tylenol] 650 mg PO Q6HR PRN tab 06/18/23 06/25/23 Rx Furosemide [Lasix] 40 mg PO BID@0900,1600 #60 tab 06/18/23 06/25/23 Rx Midodrine [ProAmatine] 10 mg PO AC-TID #90 tab 06/18/23 06/25/23 Rx carvediloL [Coreg] 6.25 mg PO BID-W/MEALS #60 tab 06/18/23 06/25/23 Rx Finasteride [Proscar] 5 mg PO DAILY #30 tab 06/19/23 06/25/23 Rx Clopidogrel [Plavix] 75 mg PO DAILY 06/25/23 06/25/23 History Terazosin [Hytrin] 5 mg PO HS 06/25/23 06/25/23 History Allergies Allergy/AdvReac Type Severity Reaction Status Date / Time No Known Allergies Allergy Verified 06/25/23 16:56 Physical Exam Vitals: Vital Signs Temp Pulse Resp BP Pulse Ox 06/25/23 21:16 95 06/25/23 19:00 90 18 131/96 92 L 06/25/23 16:16 70 18 127/94 99 06/25/23 15:45 66 16 129/85 100 06/25/23 14:24 97.6 F 73 16 133/85 95 Intake and Output 06/25/23 06/25/23 06/25/23 06:59 14:59 22:59 Other: Weight 77.111 kg GENERAL: The patient is alert and oriented x3, not in any acute distress. Well developed, well nourished. HEENT: Pupils are round and equally reacting to light. EOMI. No scleral icterus. No conjunctival pallor. Normocephalic, atraumatic. No pharyngeal erythema. No thyromegaly. CARDIOVASCULAR: S1 and S2 present. No murmurs, rubs, or gallops. -PULMONARY: Chest is clear to auscultation, no wheezing , bilateral basal crackles. ABDOMEN: Soft, nontender, nondistended, normoactive bowel sounds. No palpable organomegaly. MUSCULOSKELETAL: No joint swelling or deformity. -EXTREMITIES: No cyanosis, clubbing, , bilateral pitting leg edema. NEUROLOGICAL: Gross neurological examination did not reveal any focal deficits. SKIN: No rashes. no petechiae. Results CBC & Chem 7: 06/25/23 14:51 06/25/23 14:51 Labs: Abnormal Lab Results - Last 24 Hours (Table) 06/25/23 06/25/23 06/25/23 Range/Units 14:51 14:51 14:51 RBC 3.68 L (4.30-5.90) m/uL Hgb 10.4 L (13.0-17.5) gm/dL Hct 31.2 L (39.0-53.0) % RDW 16.1 H (11.5-15.5) % D-Dimer 1.57 H (<0.60) mg/L FEU Sodium 133 L (137-145) mmol/L BUN 54 H (9-20) mg/dL Creatinine 2.51 H (0.66-1.25) mg/dL Glucose 104 H (74-99) mg/dL Magnesium 2.4 H (1.6-2.3) mg/dL Troponin I (0.000-0.034) ng/mL Total Protein 6.1 L (6.3-8.2) g/dL Albumin 3.4 L (3.5-5.0) g/dL 06/25/23 06/25/23 Range/Units 14:51 18:06 RBC (4.30-5.90) m/uL Hgb (13.0-17.5) gm/dL Hct (39.0-53.0) % RDW (11.5-15.5) % D-Dimer (<0.60) mg/L FEU Sodium (137-145) mmol/L BUN (9-20) mg/dL Creatinine (0.66-1.25) mg/dL Glucose (74-99) mg/dL Magnesium (1.6-2.3) mg/dL Troponin I 0.040 H* 0.046 H* (0.000-0.034) ng/mL Total Protein (6.3-8.2) g/dL Albumin (3.5-5.0) g/dL Assessment and Plan Assessment: None STEMI versus unstable angina Acute and chronic with ejection fraction 20-25% Coronary artery disease with PCI of the diagonal branch, proximal LAD, and mid LAD, February D stage IV Elevated d-dimer with non-diagnostic perfusion scan for PE History of CVA Diabetes mellitus Hypertension Hyperlipidemia History of osteoarthritis Hypothyroidism Plan: Continue with heparin drip Continue with IV Lasix 40 mg twice daily Continue on aspirin 325 mg Cardiology consult Labs and medication were reviewed.. Continue same treatment. Continue with symptomatic treatment. Resume home medication. Monitor labs and vitals. DVT and GI prophylaxis. Further recommendations as per clinical course of the patient DVT prophylaxis: heparin GI Prophylaxis: Pepcid Prognosis is guarded
[2023-06-25] MEDS: ATORVASTATIN 40 MG TAB PO SCH (22:15)
[2023-06-25] MEDS: FUROSEMIDE 10 MG/ML 4 ML VIAL IV SCH (22:15)
[2023-06-25] MEDS: carvediloL 6.25 MG TAB PO SCH (22:15)
--- NOTE | 2023-06-25 23:38 | US ---
EXAMINATION TYPE: US venous doppler duplex LE BI DATE OF EXAM: 06/25/2023 10:22 PM COMPARISON: Prior left lower extremity ultrasound April 04, 2023 CLINICAL INDICATION: Male, 83 years old with history of leg swelling; Leg swelling. No hx of DVT. Not on blood thinners SIDE PERFORMED: Bilateral TECHNIQUE: The lower extremity deep venous system is examined utilizing real time linear array sonog melvi with graded compression, doppler sonography and color-flow sonography. VESSELS IMAGED: Common Femoral Vein Deep Femoral Vein Greater Saphenous Vein * Femoral Vein Popliteal Vein Small Saphenous Vein * Proximal Calf Veins (* superficial vessels) Right Leg: Negative for DVT Left Leg: Negative for DVT Grayscale, color doppler, spectral doppler imaging performed of the deep veins of the bilateral lower extremities. There is normal flow, compressibility, vascular waveforms. IMPRESSION: No ultrasound evidence for acute DVT in either lower extremity.
[2023-06-26] MEDS: NITROGLYCERIN OINT 1 INCH/GM PACKET TOPICAL SCH ×3 (06:01→17:03)
[2023-06-26] MEDS: carvediloL 6.25 MG TAB PO SCH ×2 (06:47→20:36)
[2023-06-26] MEDS: MIDODRINE 5 MG TAB PO SCH ×3 (06:47→20:36)
[2023-06-26] MEDS: ASPIRIN 81 MG PO SCH (08:52)
[2023-06-26] MEDS: hydrALAZINE HCL 25 MG TAB PO SCH ×2 (08:52→17:57)
[2023-06-26] MEDS: FUROSEMIDE 10 MG/ML 4 ML VIAL IV SCH ×2 (08:53→20:36)
[2023-06-26] MEDS: CLOPIDOGREL 75 MG TAB PO SCH (08:53)
[2023-06-26] MEDS: FINASTERIDE 5 MG TAB PO SCH (08:53)
[2023-06-26] MEDS: GABAPENTIN 100 MG CAP PO SCH ×2 (08:53→20:35)
[2023-06-26] MEDS ORDERED: ASPIRIN 325 MG TAB PO SCH (09:00)
[2023-06-26] MEDS ORDERED: LACTULOSE 20 GM/30 ML CUP PO PRN (09:00)
[2023-06-26] MEDS ORDERED: FUROSEMIDE 40 MG TAB PO SCH (09:00)
--- NOTE | 2023-06-26 09:46 | P.PN ---
Subjective This is a pleasant 83 years old male with past medical history of coronary artery disease status post PCI to diagonal branch, proximal LAD and mid LAD in February 2023. Chronic systolic CHF with low ejection fraction, chronic kidney disease stage IV. Patient presents because of chest pain started 2 hours ago about 10/10 in severity and the middle of the chest going all over the front part felt like DL and then sharp With her shortness of breath but no coughing He states he is on Plavix and WAS at home and he was taking them Currently he feels generally weak. 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 Zuniga He denies smoking alcohol or illicit drugs No change in urine or bowel habits or weakness dizziness numbness. Blood pressure is 1:30/96, rest of vital signs stable Hemoglobin 10.4, creatinine at baseline 2.5 D-dimer elevated at 1.5 but perfusion scan showing nondiagnostic results Elevated troponin Elevated proBNP 09913. Chest x-ray showing CHF EKG shows sinus rhythm at [address]-T changes 06/26/2023 Patient denies chest pain today, his total tachypneic and have dyspnea but states is improving No other new complaints He is hemodynamically stable and blood pressure is the same No labs from today and is still pending Bartolo swelling aspirin 81 mg, IV Lasix 40 mg twice daily His and heparin drip Cartilage team are evaluating him in the mid him nothing by mouth after midnight tonight. He has a Potts catheter in a Place. I check ultrasound of the neck ordered yesterday was negative for acute DVT. Review of systems CONSTITUTIONAL: No fever, no malaise, no fatigue. HEENT: No recent visual problems or hearing problems. Denied any sore throat. CARDIOVASCULAR: No orthopnea, PND, no palpitations, no syncope. HEMATOLOGICAL: Denies any bleeding or petechiae. GENITOURINARY: Denies any burning micturition, frequency, or urgency. MUSCULOSKELETAL/RHEUMATOLOGICAL: Denies any joint pain, swelling, or any muscle pain. ENDOCRINE: Denies any polyuria or polydipsia. Active Medications Generic Name Dose Route Start Last Admin Trade Name Freq PRN Reason Stop Dose Admin Acetaminophen 650 mg 06/25/23 21:59 Acetaminophen Tab 325 Mg Tab PO Q6HR PRN Mild Pain or Fever > 100.5 Aspirin 81 mg 06/26/23 09:00 06/26/23 08:52 Aspirin 81 Mg PO 81 mg DAILY [facility] Administration Atorvastatin Calcium 40 mg 06/25/23 22:00 06/25/23 22:15 Atorvastatin 40 Mg Tab PO 40 mg HS [facility] Administration Carvedilol 6.25 mg 06/25/23 22:00 06/26/23 06:47 Carvedilol 6.25 Mg Tab PO 6.25 mg BID-W/MEALS ROSEANNA Administration Clopidogrel Bisulfate 75 mg 06/26/23 09:00 06/26/23 08:53 Clopidogrel 75 Mg Tab PO 75 mg DAILY [facility] Administration Finasteride 5 mg 06/26/23 09:00 06/26/23 08:53 Finasteride 5 Mg Tab PO 5 mg DAILY [facility] Administration Furosemide 40 mg 06/25/23 22:15 06/26/23 08:53 Furosemide 10 Mg/Ml 4 Ml Vial IV 40 mg Q12HR [facility] Administration Gabapentin 200 mg 06/26/23 09:00 06/26/23 08:53 Gabapentin 100 Mg Cap PO 200 mg BID [facility] Administration Hydralazine HCl 25 mg 06/26/23 09:00 06/26/23 08:52 Hydralazine Hcl 25 Mg Tab PO 25 mg TID [facility] Administration Lactulose 10 gm 06/26/23 09:00 Lactulose 20 Gm/30 Ml Cup PO DAILY PRN Constipation Midodrine 10 mg 06/26/23 07:30 06/26/23 06:47 Midodrine 5 Mg Tab PO Not Given AC-TID [facility] Nitroglycerin 1 inch 06/25/23 18:00 06/26/23 06:01 Nitroglycerin Oint 1 Inch/Gm Packet TOPICAL Not Given Q6HR [facility] Nitroglycerin 0.4 mg 06/25/23 21:59 Nitroglycerin Sl Tabs 0.4 Mg Tab SUBLINGUAL Q5M PRN Chest Pain Objective - Vital Signs Vital signs: Vital Signs Temp 97.6 F 06/25/23 14:24 Pulse 71 06/26/23 08:00 Resp 18 06/26/23 08:00 BP 130/96 06/26/23 08:00 Pulse Ox 97 06/26/23 08:42 FiO2 Intake & Output 06/25/23 06/26/23 06/26/23 18:59 06:59 18:59 Weight 77.111 kg - Exam GENERAL: The patient is alert and oriented x3, not in any acute distress. Well developed, well nourished. HEENT: Pupils are round and equally reacting to light. EOMI. No scleral icterus. No conjunctival pallor. Normocephalic, atraumatic. No pharyngeal erythema. No thyromegaly. CARDIOVASCULAR: S1 and S2 present. No murmurs, rubs, or gallops. -PULMONARY: Chest is clear to auscultation, no wheezing , bilateral middle and distal crackles. -ABDOMEN: Soft, nontender, nondistended, normoactive bowel sounds. No palpable organomegaly. Potts catheter in place MUSCULOSKELETAL: No joint swelling or deformity. EXTREMITIES: No cyanosis, clubbing, or pedal or leg edema. NEUROLOGICAL: Gross neurological examination did not reveal any focal deficits. SKIN: No rashes. no petechiae. - Labs CBC & Chem 7: 06/25/23 14:51 06/25/23 14:51 Labs: Abnormal Lab Results - Last 24 Hours (Table) 06/25/23 06/25/23 06/25/23 Range/Units 14:51 14:51 14:51 RBC 3.68 L (4.30-5.90) m/uL Hgb 10.4 L (13.0-17.5) gm/dL Hct 31.2 L (39.0-53.0) % RDW 16.1 H (11.5-15.5) % APTT (22.0-30.0) sec D-Dimer 1.57 H (<0.60) mg/L FEU Sodium 133 L (137-145) mmol/L BUN 54 H (9-20) mg/dL Creatinine 2.51 H (0.66-1.25) mg/dL Glucose 104 H (74-99) mg/dL Magnesium 2.4 H (1.6-2.3) mg/dL Troponin I (0.000-0.034) ng/mL Total Protein 6.1 L (6.3-8.2) g/dL Albumin 3.4 L (3.5-5.0) g/dL 06/25/23 06/25/23 06/25/23 Range/Units 14:51 18:06 21:22 RBC (4.30-5.90) m/uL Hgb (13.0-17.5) gm/dL Hct (39.0-53.0) % RDW (11.5-15.5) % APTT (22.0-30.0) sec D-Dimer (<0.60) mg/L FEU Sodium (137-145) mmol/L BUN (9-20) mg/dL Creatinine (0.66-1.25) mg/dL Glucose (74-99) mg/dL Magnesium (1.6-2.3) mg/dL Troponin I 0.040 H* 0.046 H* 0.050 H* (0.000-0.034) ng/mL Total Protein (6.3-8.2) g/dL Albumin (3.5-5.0) g/dL 06/25/23 Range/Units 21:22 RBC (4.30-5.90) m/uL Hgb (13.0-17.5) gm/dL Hct (39.0-53.0) % RDW (11.5-15.5) % APTT 53.9 H (22.0-30.0) sec D-Dimer (<0.60) mg/L FEU Sodium (137-145) mmol/L BUN (9-20) mg/dL Creatinine (0.66-1.25) mg/dL Glucose (74-99) mg/dL Magnesium (1.6-2.3) mg/dL Troponin I (0.000-0.034) ng/mL Total Protein (6.3-8.2) g/dL Albumin (3.5-5.0) g/dL Assessment and Plan Assessment: None STEMI versus unstable angina Acute and chronic with ejection fraction 20-25% Coronary artery disease with PCI of the diagonal branch, proximal LAD, and mid LAD, February D stage IV Elevated d-dimer with non-diagnostic perfusion scan for PE History of CVA Diabetes mellitus Hypertension Hyperlipidemia History of osteoarthritis Hypothyroidism Plan: Continue with heparin drip Continue with IV Lasix 40 mg twice daily Continue on aspirin 81 mg Cardiology consult Labs and medication were reviewed.. Continue same treatment. Continue with symptomatic treatment. Resume home medication. Monitor labs and vitals. DVT and GI prophylaxis. Further recommendations as per clinical course of the patient DVT prophylaxis: heparin GI Prophylaxis: Pepcid Prognosis is guarded
[2023-06-26 10:00] LABS: Basophils % (A) 0 %; Eosinophils # (A) 0.3 k/uL (0-0.7); Eosinophils % (A) 3 %; HCT 32.2 % (39.0-53.0); HGB 10.3 gm/dL (13.0-17.5); Hypochromasia Slight; Lymphocytes # (A) 1.6 k/uL (1.0-4.8); Lymphocytes % (A) 19 %; MCH 27.8 pg (25.0-35.0); MCHC 32.2 g/dL (31.0-37.0); MCV 86.5 fL (80.0-100.0); Mean Platelet Volume 9.7; Monocytes # (A) 0.4 k/uL (0-1.0); Monocytes % (A) 5 %; Neutrophils # (A) 5.8 k/uL (1.3-7.7); Neutrophils % (A) 71 %; Platelet Count 158 k/uL (150-450); RBC 3.72 m/uL (4.30-5.90); WBC 8.3 k/uL (3.8-10.6)
[2023-06-26 10:10] LABS: African American GFR (CKD) 30 (>60 ml/min/1.73 sqM); Anion Gap 12 mmol/L; Blood Urea Nitrogen 52 mg/dL (9-20); Calcium 8.8 mg/dL (8.4-10.2); Carbon Dioxide 24 mmol/L (22-30); Chloride 99 mmol/L (98-107); Glucose 86 mg/dL (74-99); Non-African American GFR(CKD) 26 (>60 ml/min/1.73 sqM); Sodium 135 mmol/L (137-145)
--- NOTE | 2023-06-26 12:52 | P.CRDCN ---
History of Present Illness Consult date: 06/26/23 Consult reason: chest pain History of present illness: History of present illness: This is an 83-year-old male patient of Dr. RIK Ferrer with past medical history of coronary artery disease status post PCI with recent ischemic cardiomyopathy, hypertension, CVA status post carotid surgery, chronic kidney disease, hyperlipidemia, remote history of tobacco use and dependence. We have been asked to evaluate the patient for chest pain. Patient is seen today in the emergency center waiting for bed on the cardiac stepdown unit. Patient had a r ecent hospitalization and discharged on 06/19/2023 at which time he was seen by cardiology for acute on chronic heart failure with reduced EF 20 to 25%. Patient was discharged home on 06/19. He states he felt well when he left. He has intermittent dull chest pain in the mid area and feels his main problem is shortness of breath. He does not know if he has gained weight or is retaining fluid. He has a friend catheter in place. Patient has been started on heparin drip and IV Lasix 40 mg every 12 hours. EKG sinus rhythm with left bundle branch block Chest x-ray: CHF with early interstitial pulmonary edema. Small bilateral pleural effusions VQ scan nondiagnostic (low or intermediate probability), pulmonary perfusion only scan. Venous duplex bilateral lower extremity negative for DVT. WBC 7, hemoglobin 10.4, platelet count 180. D-dimer 1.57. Sodium 133, potassium 3.8, BUN 54 and creatinine 2.51 troponin 0.04, 0.046, 0.05. proBNP 3 38,600. Home cardiac medications: Aspirin 81 mg daily, atorvastatin 40 mg daily, Coreg 6.25 mg twice daily, Plavix 75 mg daily Lasix 40 mg twice daily, midodrine 10 mg 3 times daily, Nitrostat as needed. Patient also on Hytrin 5 mg at bedtime Echocardiogram performed on 05/16/2023 revealed technically difficult study. Inadequate visualization of 2 or more contiguous segments. EF 20 to 25%. Mild to moderate mitral regurgitation and mild to moderate tricuspid regurgitation and mild pulmonary hypertension. PCI performed 03/21/2023 with PTCA and stenting of the proximal and mid LAD and major diagonal branch. Transit diagonal occlusion with periprocedure IN chest pain resolved. Echo revealed EF of 35%. No new hypokinesia in the LAD or diagonal distribution. Cardiac catheterization performed 02/28/2023 revealed elevated filling pressures. No gradient across the valve. RCA 55% mid lesion distal to the stent and 40% proximal lesion before the stent. LM 10 to 50% narrowing. LAD with long 80% lesion from the ostium to the mid portions. Circumflex stented segment patent. High OM 70% narrowing in 80% groove branch narrow. Review Of Systems: At the time of my evaluation: Constitutional: No fever, no chills. No weakness, fatigue or lethargy. EENT: No headache. No dizziness. Lungs: + shortness of breath, cough, no sputum production. No wheezing. + LEYVA. Cardiovascular: No chest pain, no lower extremity edema. No palpitations. No p aroxysmal nocturnal dyspnea. No orthopnea. No lightheadedness or dizziness. No syncopal episodes. Abdominal: No abdominal pain. No nausea, vomiting. No diarrhea. No constipation. No bloody or tarry stools. Genitourinary: No dysuria. possible urinary retention-friend. Musculoskeletal: No myalgias. No muscle weakness, no frequent falls. Integumentary: No wounds. No rash. No unusual bruising. Neurologic: No aphasia. No facial droop. No change in mentation. Physical examination: Gen: This is an 83-year-old male resting in and appears to be in no acute distress VS: reviewed 134/95, heart rate 70s and 80s. HEENT: Head is atraumatic, normocephalic. Pupils equal, round. Sclerae is an icteric. NECK: Supple. No JVD. LUNGS: Clear to auscultation. No wheezes or rhonchi. No intercostal retractions. HEART: Regular rate and rhythm. No murmur. ABDOMEN: Soft No tenderness. EXTREMITIES: No pedal edema. No calf tenderness. NEUROLOGICAL: Patient is awake, alert and oriented x3. Assessment: NSTEMI Known history of coronary artery disease Ischemic cardiomyopathy Hypertension History of CVA with right-sided carotid endarterectomy Chronic kidney disease Hyperlipidemia Remote history of tobacco use and dependence Plan: Continue patient's home cardiac medications noted that Plavix and midodrine were not resumed Resume Plavix and aspirin. Continue heparin drip for 24 hours Most of symptoms appear related to heart failure and we will monitor response to diuresis. Continue IV Lasix 40 mg every 12 hours Monitor YUDY, daily weight, electrolytes and renal function Patient is not on PARKER inhibitor or ARB secondary to abnormal kidney function Not a good interventional candidate secondary to chronic kidney disease Further recommendations to follow based upon clinical course Thank you kindly for this consultation. Nurse practitioner note has been reviewed, I agree with documented findings and plan of care. Patient was seen and examined. Past Medical History Past Medical History: Coronary Artery Disease (CAD), Heart Failure, CVA/TIA, G ERD/Reflux, Hyperlipidemia, Hypertension, Myocardial Infarction (IN), Musculoskeletal Disorder, Osteoarthritis (OA), Prostate Disorder, Skin Disorder, Thyroid Disorder Additional Past Medical History / Comment(s): Lumbar disc disease, HERNIATED DISC IN BACK. Diverticular disease with diverticulosis, BPH, IN X2, unknown dates. lft leg weakness post cva (NO ASSISTED DEVICES). SHINGLES IN LEFT EYE. 03/19 cardiac stents Last Myocardial Infarction Date:: 03/2023 History of Any Multi-Drug Resistant Organisms: None Reported Past Surgical History: Adenoidectomy, Heart Catheterization With Stent, Joint Replacement, Tonsillectomy Additional Past Surgical History / Comment(s): Chato KNEE REPLACMENT. Colonoscopy with polypectomy, epidural steroid injections. carotid stents-23 Past Anesthesia/Blood Transfusion Reactions: No Reported Reaction Date of Last Stent Placement:: UNK Past Psychological History: No Psychological Hx Reported Smoking Status: Former smoker Past Alcohol Use History: Rare Past Drug Use History: None Reported - Past Family History Sister(s) Family Medical History: Cancer Additional Family Medical History / Comment(s): Pancreatic cancer. Father History Unknown: Yes Family Medical History: Cancer Mother History Unknown: Yes Family Medical History: Congestive Heart Failure (CHF) Additional Family Medical History / Comment(s): AT AGE 94. Medications and Allergies Home Medications Medication Instructions Recorded Confirmed Type Atorvastatin [Lipitor] 40 mg PO HS #30 tab 11/21/22 06/25/23 Rx Aspirin 81 mg PO DAILY tab 03/22/23 06/25/23 Rx Gabapentin [Neurontin] 200 mg PO BID 04/25/23 06/25/23 History Lactulose 10 gm PO DAILY PRN 06/02/23 06/25/23 History Nitroglycerin Sl Tabs [Nitrostat] 0.4 mg SL Q5M PRN 06/02/23 06/25/23 History Omeprazole [PriLOSEC] 20 mg PO AC-BRKFST #30 cap 06/04/23 06/25/23 Rx Acetaminophen Tab [Tylenol] 650 mg PO Q6HR PRN tab 06/18/23 06/25/23 Rx Furosemide [Lasix] 40 mg PO BID@0900,1600 #60 tab 06/18/23 06/25/23 Rx Midodrine [ProAmatine] 10 mg PO AC-TID #90 tab 06/18/23 06/25/23 Rx carvediloL [Coreg] 6.25 mg PO BID-W/MEALS #60 tab 06/18/23 06/25/23 Rx Finasteride [Proscar] 5 mg PO DAILY #30 tab 06/19/23 06/25/23 Rx Clopidogrel [Plavix] 75 mg PO DAILY 06/25/23 06/25/23 History Terazosin [Hytrin] 5 mg PO HS 06/25/23 06/25/23 History Allergies Allergy/AdvReac Type Severity Reaction Status Date / Time No Known Allergies Allergy Verified 06/25/23 16:56 Physical Exam Vitals: Vital Signs Temp Pulse Resp BP Pulse Ox 06/26/23 07:17 76 18 134/95 97 06/26/23 06:07 81 18 121/83 96 06/26/23 04:00 69 16 118/81 95 06/25/23 23:26 85 24 119/77 97 06/25/23 21:16 95 06/25/23 19:00 90 18 131/96 92 L 06/25/23 16:16 70 18 127/94 99 06/25/23 15:45 66 16 129/85 100 06/25/23 14:24 97.6 F 73 16 133/85 95 Results 06/26/23 09:39 06/27/23 08:12 Cardiac Enzymes 06/25/23 06/25/23 06/25/23 Range/Units 14:51 14:51 18:06 AST 21 (17-59) U/L Troponin I 0.040 H* 0.046 H* (0.000-0.034) ng/mL 06/25/23 Range/Units 21:22 AST (17-59) U/L Troponin I 0.050 H* (0.000-0.034) ng/mL Coagulation 06/25/23 06/25/23 Range/Units 14:51 21:22 PT 10.9 (10.0-12.5) sec APTT 26.0 53.9 H (22.0-30.0) sec CBC 06/25/23 Range/Units 14:51 WBC 7.0 (3.8-10.6) k/uL RBC 3.68 L (4.30-5.90) m/uL Hgb 10.4 L (13.0-17.5) gm/dL Hct 31.2 L (39.0-53.0) % Plt Count 180 (150-450) k/uL Comprehensive Metabolic Panel 06/25/23 Range/Units 14:51 Sodium 133 L (137-145) mmol/L Potassium 3.8 (3.5-5.1) mmol/L Chloride 99 (98-107) mmol/L Carbon Dioxide 24 (22-30) mmol/L BUN 54 H (9-20) mg/dL Creatinine 2.51 H (0.66-1.25) mg/dL Glucose 104 H (74-99) mg/dL Calcium 8.5 (8.4-10.2) mg/dL AST 21 (17-59) U/L ALT 22 (4-49) U/L Alkaline Phosphatase 89 (38-126) U/L Total Protein 6.1 L (6.3-8.2) g/dL Albumin 3.4 L (3.5-5.0) g/dL Current Medications Generic Name Dose Route Start Last Admin Trade Name Freq PRN Reason Stop Dose Admin Acetaminophen 650 mg 06/25/23 21:59 Acetaminophen Tab 325 Mg Tab PO Q6HR PRN Mild Pain or Fever > 100.5 Aspirin 325 mg 06/26/23 09:00 Aspirin 325 Mg Tab PO DAILY [facility] Atorvastatin Calcium 40 mg 06/25/23 22:00 06/25/23 22:15 Atorvastatin 40 Mg Tab PO 40 mg HS ROSEANNA Administration Carvedilol 6.25 mg 06/25/23 22:00 06/26/23 06:47 Carvedilol 6.25 Mg Tab PO 6.25 mg BID-W/MEALS ROSEANNA Administration Finasteride 5 mg 06/26/23 09:00 Finasteride 5 Mg Tab PO DAILY [facility] Furosemide 40 mg 06/25/23 22:15 06/25/23 22:15 Furosemide 10 Mg/Ml 4 Ml Vial IV 40 mg Q12HR ROSEANNA Administration Gabapentin 200 mg 06/26/23 09:00 Gabapentin 100 Mg Cap PO BID ROSEANNA Heparin Sodium (Porcine) 0 unit 06/25/23 16:03 Heparin Sodium 1,000 Un/Ml (10ml Vl) IV PER PROTOCOL PRN Low PTT Protocol Heparin Sodium/Sodium Chloride 250 mls @ 9.253 mls/hr 06/25/23 16:15 06/25/23 16:14 25,000 unit/ Sodium Chloride IV 12 units/kg/hr .Q24H ROSEANNA 9.253 mls/hr Administration Protocol 12 UNITS/KG/HR Lactulose 10 gm 06/26/23 09:00 Lactulose 20 Gm/30 Ml Cup PO DAILY PRN Constipation Midodrine 10 mg 06/26/23 07:30 06/26/23 06:47 Midodrine 5 Mg Tab PO Not Given AC-TID [facility] Nitroglycerin 1 inch 06/25/23 18:00 06/26/23 06:01 Nitroglycerin Oint 1 Inch/Gm Packet TOPICAL Not Given Q6HR [facility] Nitroglycerin 0.4 mg 06/25/23 21:59 Nitroglycerin Sl Tabs 0.4 Mg Tab SUBLINGUAL Q5M PRN Chest Pain 06/25/23 14:51 06/25/23 14:51
[2023-06-26] MEDS: ACETAMINOPHEN TAB 325 MG TAB PO PRN ×2 (13:08→22:02)
[2023-06-26 16:24] LABS: Chol/HDL Ratio 4.43 Ratio; LDL Cholesterol,Calculated 57.9 mg/dL (0.0-131.0)
[2023-06-26] MEDS: HEPARIN SODIUM,PORCINE 5,000 UNIT/ML 1 ML VIAL SQ SCH (20:36)
[2023-06-26] MEDS: ATORVASTATIN 40 MG TAB PO SCH (20:36)
[2023-06-27] MEDS: hydrALAZINE HCL 25 MG TAB PO SCH ×4 (01:26→21:15)
[2023-06-27] MEDS: NITROGLYCERIN OINT 1 INCH/GM PACKET TOPICAL SCH ×4 (01:27→18:40)
[2023-06-27] MEDS: carvediloL 6.25 MG TAB PO SCH ×2 (05:59→17:29)
[2023-06-27] MEDS: MIDODRINE 5 MG TAB PO SCH ×4 (05:59→18:40)
[2023-06-27 09:42] LABS: African American GFR (CKD) 24 (>60 ml/min/1.73 sqM); Anion Gap 10 mmol/L; Blood Urea Nitrogen 56 mg/dL (9-20); Calcium 8.7 mg/dL (8.4-10.2); Carbon Dioxide 28 mmol/L (22-30); Chloride 97 mmol/L (98-107); Glucose 111 mg/dL (74-99); Non-African American GFR(CKD) 21 (>60 ml/min/1.73 sqM); Potassium 4.3 mmol/L (3.5-5.1); Sodium 135 mmol/L (137-145)
[2023-06-27] MEDS: FUROSEMIDE 10 MG/ML 4 ML VIAL IV SCH ×2 (09:48→20:15)
[2023-06-27] MEDS: GABAPENTIN 100 MG CAP PO SCH ×2 (09:48→21:15)
[2023-06-27] MEDS: ASPIRIN 81 MG PO SCH (09:48)
[2023-06-27] MEDS: HEPARIN SODIUM,PORCINE 5,000 UNIT/ML 1 ML VIAL SQ SCH ×2 (09:48→21:15)
[2023-06-27] MEDS: CLOPIDOGREL 75 MG TAB PO SCH (09:49)
[2023-06-27] MEDS: FINASTERIDE 5 MG TAB PO SCH (09:49)
[2023-06-27 10:20] LABS: NT-Pro-B-Type Natriuretic Pept 45800 pg/mL
--- NOTE | 2023-06-27 15:40 | P.PN ---
Subjective This is a pleasant 83 years old male with past medical history of coronary artery disease status post PCI to diagonal branch, proximal LAD and mid LAD in February 2023. Chronic systolic CHF with low ejection fraction, chronic kidney disease stage IV. Patient presents because of chest pain started 2 hours ago about 10/10 in severity and the middle of the chest going all over the front part felt like DL and then sharp With her shortness of breath but no coughing He states he is on Plavix and WAS at home and he was taking them Currently he feels generally weak. 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 Zuniga He denies smoking alcohol or illicit drugs No change in urine or bowel habits or weakness dizziness numbness. Blood pressure is 1:30/96, rest of vital signs stable Hemoglobin 10.4, creatinine at baseline 2.5 D-dimer elevated at 1.5 but perfusion scan showing nondiagnostic results Elevated troponin Elevated proBNP 20361. Chest x-ray showing CHF EKG shows sinus rhythm at [address]-T changes 06/26/2023 Patient denies chest pain today, his total tachypneic and have dyspnea but states is improving No other new complaints He is hemodynamically stable and blood pressure is the same No labs from today and is still pending Bartolo swelling aspirin 81 mg, IV Lasix 40 mg twice daily His and heparin drip Cartilage team are evaluating him in the mid him nothing by mouth after midnight tonight. He has a Potts catheter in a Place. I check ultrasound of the neck ordered yesterday was negative for acute DVT. 06/27/2023 Patient with no chest pain Breathing is improving, his still has basal crepitation but they are improving. No leg edema. He remains on IV Lasix 40 mg twice daily. Patient is tolerated by song writer and found another good candidate for surgical intervention or cardiac cath. Currently he status post heparin drip 24 hours. Currently of heparin drip. Also he is on aspirin and Plavix. No other new complaints. Creatinine slightly on the high side baseline 2.6. We'll keep monitoring Objective - Vital Signs Vital signs: Vital Signs Temp 97.3 F L 06/27/23 12:00 Pulse 63 06/27/23 12:00 Resp 20 06/27/23 12:00 BP 132/83 06/27/23 12:00 Pulse Ox 97 06/27/23 12:00 FiO2 Intake & Output 06/26/23 06/27/23 06/27/23 18:59 06:59 18:59 Output Total 870 Balance -870 Weight 78.1 kg Output: Urine 870 Other: Voiding Method Indwelling Catheter Indwelling Catheter Indwelling Catheter # Voids 1 - Exam GENERAL: The patient is alert and oriented x3, not in any acute distress. Well developed, well nourished. HEENT: Pupils are round and equally reacting to light. EOMI. No scleral icterus. No conjunctival pallor. Normocephalic, atraumatic. No pharyngeal erythema. No thyromegaly. CARDIOVASCULAR: S1 and S2 present. No murmurs, rubs, or gallops. -PULMONARY: Chest is clear to auscultation, no wheezing , bilateral middle and distal crackles. -ABDOMEN: Soft, nontender, nondistended, normoactive bowel sounds. No palpable organomegaly. Potts catheter in place MUSCULOSKELETAL: No joint swelling or deformity. EXTREMITIES: No cyanosis, clubbing, or pedal or leg edema. NEUROLOGICAL: Gross neurological examination did not reveal any focal deficits. SKIN: No rashes. no petechiae. - Labs CBC & Chem 7: 06/26/23 09:39 06/27/23 08:12 Labs: Abnormal Lab Results - Last 24 Hours (Table) 06/26/23 06/27/23 Range/Units 09:34 08:12 Sodium 135 L (137-145) mmol/L Chloride 97 L (98-107) mmol/L BUN 56 H (9-20) mg/dL Creatinine 2.65 H (0.66-1.25) mg/dL Glucose 111 H (74-99) mg/dL HDL Cholesterol 23.50 L (40.00-60.00) mg/dL Assessment and Plan Assessment: None STEMI versus unstable angina Acute and chronic with ejection fraction 20-25% Coronary artery disease with PCI of the diagonal branch, proximal LAD, and mid LAD, February D stage IV Elevated d-dimer with non-diagnostic perfusion scan for PE History of CVA Diabetes mellitus Hypertension Hyperlipidemia History of osteoarthritis Hypothyroidism Plan: Stopped heparin drip Continue with IV Lasix 40 mg twice daily Continue on aspirin 81 mg and Plavix Cardiology consult Labs and medication were reviewed.. Continue same treatment. Continue with symptomatic treatment. Resume home medication. Monitor labs and vitals. DVT and GI prophylaxis. Further recommendations as per clinical course of the patient DVT prophylaxis: heparin GI Prophylaxis: Pepcid Prognosis is guarded
--- NOTE | 2023-06-27 19:39 | P.PN ---
Subjective Progress Note Date: 06/27/23 History of present illness: This is an 83-year-old male patient of Dr. RIK Ferrer with past medical history of coronary artery disease status post PCI with recent ischemic cardiomyopathy, hypertension, CVA status post carotid surgery, chronic kidney disease, hyperlipidemia, remote history of tobacco use and dependence. We have been asked to evaluate the patient for chest pain. Patient is seen today in the emergency center waiting for bed on the cardiac stepdown unit. Patient had a recent hospitalization and discharged on 06/19/2023 at which time he was seen by cardiology for acute on chronic heart failure with reduced EF 20 to 25%. Patient was discharged home on 06/19. He states he felt well when he left. He has intermittent dull chest pain in the mid area and feels his main problem is shortness of breath. He does not know if he has gained weight or is retaining fluid. He has a friend catheter in place. Patient has been started on heparin drip and IV Lasix 40 mg every 12 hours. EKG sinus rhythm with left bundle branch block Chest x-ray: CHF with early interstitial pulmonary edema. Small bilateral pleural effusions VQ scan nondiagnostic (low or intermediate probability), pulmonary perfusion only scan. Venous duplex bilateral lower extremity negative for DVT. WBC 7, hemoglobin 10.4, platelet count 180. D-dimer 1.57. Sodium 133, potassium 3.8, BUN 54 and creatinine 2.51 troponin 0.04, 0.046, 0.05. proBNP 3 38,600. Home cardiac medications: Aspirin 81 mg daily, atorvastatin 40 mg daily, Coreg 6.25 mg twice daily, Plavix 75 mg daily Lasix 40 mg twice daily, midodrine 10 mg 3 times daily, Nitrostat as needed. Patient also on Hytrin 5 mg at bedtime Echocardiogram performed on 05/16/2023 revealed technically difficult study. Inadequate visualization of 2 or more contiguous segments. EF 20 to 25%. Mild to moderate mitral regurgitation and mild to moderate tricuspid regurgitation and mild pulmonary hypertension. PCI performed 03/21/2023 with PTCA and stenting of the proximal and mid LAD and major diagonal branch. Transit diagonal occlusion with periprocedure MD chest pain resolved. Echo revealed EF of 35%. No new hypokinesia in the LAD or diagonal distribution. Cardiac catheterization performed 02/28/2023 revealed elevated filling pressures. No gradient across the valve. RCA 55% mid lesion distal to the stent and 40% proximal lesion before the stent. LM 10 to 50% narrowing. LAD with long 80% lesion from the ostium to the mid portions. Circumflex stented segment patent. High OM 70% narrowing in 80% groove branch narrow. 06/27/2023 He denies any chest pain or pressure. His shortness of breath is unchanged. He has been walking to the bathroom and feels a littel better overall today. Creat 2.65. Physical examination: Gen: This is an 83-year-old male resting in and appears to be in no acute distress VS: reviewed 134/95, heart rate 70s and 80s. HEENT: Head is atraumatic, normocephalic. Pupils equal, round. Sclerae is anicteric. NECK: Supple. No JVD. LUNGS: Clear to auscultation. No wheezes or rhonchi. No intercostal retractions. HEART: Regular rate and rhythm. No murmur. ABDOMEN: Soft No tenderness. EXTREMITIES: No pedal edema. No calf tenderness. NEUROLOGICAL: Patient is awake, alert and oriented x3. Assessment: NSTEMI Known history of coronary artery disease Ischemic cardiomyopathy Hypertension History of CVA with right-sided carotid endarterectomy Chronic kidney disease Hyperlipidemia Remote history of tobacco use and dependence Plan: Continue current regimen. Most of symptoms appear related to heart failure and we will monitor response to diuresis. Continue IV Lasix 40 mg every 12 hours. Monitor I&O, daily weight, electrolytes and renal function. Patient is not on PARKER inhibitor or ARB secondary to abnormal kidney function. Not a good interventional candidate secondary to chronic kidney disease. Recommend medical management. We will continue to follow, anticipate possible discharge in 1-2 days. Nurse practitioner note has been reviewed, I agree with documented findings and plan of care. Patient was seen and examined. Objective - Vital Signs Vital signs: Vital Signs Temp 97.7 F 06/27/23 15:26 Pulse 75 06/27/23 16:18 Resp 20 06/27/23 16:18 BP 122/79 06/27/23 16:15 Pulse Ox 98 06/27/23 16:15 FiO2 Intake & Output 06/27/23 06/27/23 06/28/23 06:59 18:59 06:59 Intake Total 600 Output Total 870 400 Balance -870 200 Weight 78.1 kg Intake: Oral 600 Output: Urine 870 400 Other: Voiding Method Indwelling Catheter Indwelling Catheter # Voids 1 - Labs CBC & Chem 7: 06/26/23 09:39 06/27/23 08:12 Labs: Abnormal Lab Results - Last 24 Hours (Table) 06/27/23 Range/Units 08:12 Sodium 135 L (137-145) mmol/L Chloride 97 L (98-107) mmol/L BUN 56 H (9-20) mg/dL Creatinine 2.65 H (0.66-1.25) mg/dL Glucose 111 H (74-99) mg/dL
[2023-06-27] MEDS ORDERED: HEPARIN SODIUM,PORCINE 5,000 UNIT/ML 1 ML VIAL SQ SCH (21:00)
[2023-06-27] MEDS: ATORVASTATIN 40 MG TAB PO SCH (21:16)
[2023-06-28] MEDS: NITROGLYCERIN OINT 1 INCH/GM PACKET TOPICAL SCH ×5 (00:08→23:23)
[2023-06-28] MEDS: MIDODRINE 5 MG TAB PO SCH ×3 (05:58→17:00)
[2023-06-28] MEDS: carvediloL 6.25 MG TAB PO SCH ×2 (05:58→17:07)
[2023-06-28 08:54] LABS: Anisocytosis Slight; Basophils % (A) 0 %; Eosinophils # (A) 0.2 k/uL (0-0.7); Eosinophils % (A) 2 %; HCT 34.1 % (39.0-53.0); HGB 10.7 gm/dL (13.0-17.5); Hypochromasia Slight; Lymphocytes # (A) 2.4 k/uL (1.0-4.8); Lymphocytes % (A) 27 %; MCH 27.2 pg (25.0-35.0); MCHC 31.3 g/dL (31.0-37.0); MCV 86.8 fL (80.0-100.0); Mean Platelet Volume 9.6; Monocytes # (A) 0.4 k/uL (0-1.0); Monocytes % (A) 5 %; Neutrophils # (A) 5.9 k/uL (1.3-7.7); Neutrophils % (A) 65 %; Platelet Count 229 k/uL (150-450); RBC 3.93 m/uL (4.30-5.90); RDW 16.2 % (11.5-15.5)
[2023-06-28] MEDS: FINASTERIDE 5 MG TAB PO SCH (09:48)
[2023-06-28] MEDS: FUROSEMIDE 10 MG/ML 4 ML VIAL IV SCH (09:48)
[2023-06-28] MEDS: HEPARIN SODIUM,PORCINE 5,000 UNIT/ML 1 ML VIAL SQ SCH ×2 (09:48→22:09)
[2023-06-28] MEDS: CLOPIDOGREL 75 MG TAB PO SCH (09:48)
[2023-06-28] MEDS: ASPIRIN 81 MG PO SCH (09:48)
[2023-06-28] MEDS: hydrALAZINE HCL 25 MG TAB PO SCH ×2 (09:48→17:08)
[2023-06-28] MEDS: GABAPENTIN 100 MG CAP PO SCH ×2 (09:48→22:09)
[2023-06-28 11:28] LABS: African American GFR (CKD) 23 (>60 ml/min/1.73 sqM); Anion Gap 9 mmol/L; Blood Urea Nitrogen 56 mg/dL (9-20); Calcium 8.9 mg/dL (8.4-10.2); Carbon Dioxide 27 mmol/L (22-30); Chloride 99 mmol/L (98-107); Glucose 114 mg/dL (74-99); Non-African American GFR(CKD) 20 (>60 ml/min/1.73 sqM); Potassium 4.3 mmol/L (3.5-5.1); Sodium 135 mmol/L (137-145)
--- NOTE | 2023-06-28 14:21 | P.PN ---
Subjective Progress Note Date: 06/28/23 History of present illness: This is an 83-year-old male patient of Dr. RIK Ferrer with past medical history of coronary artery disease status post PCI with recent ischemic cardiomyopathy, hypertension, CVA status post carotid surgery, chronic kidney disease, hyperlipidemia, remote history of tobacco use and dependence. We have been asked to evaluate the patient for chest pain. Patient is seen today in the emergency center waiting for bed on the cardiac stepdown unit. Patient had a recent hospitalization and discharged on 06/19/2023 at which time he was seen by cardiology for acute on chronic heart failure with reduced EF 20 to 25%. Patient was discharged home on 06/19. He states he felt well when he left. He has intermittent dull chest pain in the mid area and feels his main problem is shortness of breath. He does not know if he has gained weight or is retaining fluid. He has a friend catheter in place. Patient has been started on heparin drip and IV Lasix 40 mg every 12 hours. EKG sinus rhythm with left bundle branch block Chest x-ray: CHF with early interstitial pulmonary edema. Small bilateral pleural effusions VQ scan nondiagnostic (low or intermediate probability), pulmonary perfusion only scan. Venous duplex bilateral lower extremity negative for DVT. WBC 7, hemoglobin 10.4, platelet count 180. D-dimer 1.57. Sodium 133, potassium 3.8, BUN 54 and creatinine 2.51 troponin 0.04, 0.046, 0.05. proBNP 3 38,600. Home cardiac medications: Aspirin 81 mg daily, atorvastatin 40 mg daily, Coreg 6.25 mg twice daily, Plavix 75 mg daily Lasix 40 mg twice daily, midodrine 10 mg 3 times daily, Nitrostat as needed. Patient also on Hytrin 5 mg at bedtime Echocardiogram performed on 05/16/2023 revealed technically difficult study. Inadequate visualization of 2 or more contiguous segments. EF 20 to 25%. Mild to moderate mitral regurgitation and mild to moderate tricuspid regurgitation and mild pulmonary hypertension. PCI performed 03/21/2023 with PTCA and stenting of the proximal and mid LAD and major diagonal branch. Transit diagonal occlusion with periprocedure PA chest pain resolved. Echo revealed EF of 35%. No new hypokinesia in the LAD or diagonal distribution. Cardiac catheterization performed 02/28/2023 revealed elevated filling pressures. No gradient across the valve. RCA 55% mid lesion distal to the stent and 40% proximal lesion before the stent. LM 10 to 50% narrowing. LAD with long 80% lesion from the ostium to the mid portions. Circumflex stented segment patent. High OM 70% narrowing in 80% groove branch narrow. 06/27/2023 He denies any chest pain or pressure. His shortness of breath is unchanged. He has been walking to the bathroom and feels a littel better overall today. Creat 2.65. 06/28 Patient continues to deny having any chest pain, no shortness of breath. His oxygen saturation is dropping with ambulation and home oxygen has been arranged. He has a Friend catheter in place which is chronic. Blood pressure 124/72, heart rate in the 70s. Repeat blood work reveals hemoglobin 10.7, potassium 4.3, BUN 56 and creatinine 2.73. Physical examination: Gen: This is an 83-year-old male resting in and appears to be in no acute distress VS: reviewed 134/95, heart rate 70s and 80s. HEENT: Head is atraumatic, normocephalic. Pupils equal, round. Sclerae is anicteric. NECK: Supple. No JVD. LUNGS: Clear to auscultation. No wheezes or rhonchi. No intercostal retractions. HEART: Regular rate and rhythm. No murmur. ABDOMEN: Soft No tenderness. EXTREMITIES: No pedal edema. No calf tenderness. NEUROLOGICAL: Patient is awake, alert and oriented x3. Assessment: NSTEMI Known history of coronary artery disease Ischemic cardiomyopathy Hypertension History of CVA with right-sided carotid endarterectomy Chronic kidney disease Hyperlipidemia Remote history of tobacco use and dependence Plan: Continue patient's home cardiac medications Transition IV Lasix to oral 80 mg twice daily and plan to continue this dose at the time of discharge Monitor I&O, daily weight, electrolytes and renal function. Patient is not on PARKER inhibitor or ARB secondary to abnormal kidney function. Not a good interventional candidate secondary to chronic kidney disease. Recommend medical management. Nurse practitioner note has been reviewed, I agree with documented findings and plan of care. Patient was seen and examined. Objective - Vital Signs Vital signs: Vital Signs Temp 97.6 F 06/28/23 04:00 Pulse 74 06/28/23 10:35 Resp 21 06/28/23 04:00 BP 119/79 06/28/23 04:00 Pulse Ox 95 06/28/23 10:35 FiO2 Intake & Output 06/27/23 06/28/23 06/28/23 18:59 06:59 18:59 Intake Total 600 100 240 Output Total 400 140 Balance 200 -40 240 Weight 77.9 kg Intake: Oral 600 100 240 Output: Urine 400 140 Other: Voiding Method Indwelling Catheter Indwelling Catheter # Voids 1 1 - Labs CBC & Chem 7: 06/28/23 08:12 06/28/23 08:12 Labs: Abnormal Lab Results - Last 24 Hours (Table) 06/28/23 Range/Units 08:12 RBC 3.93 L (4.30-5.90) m/uL Hgb 10.7 L (13.0-17.5) gm/dL Hct 34.1 L (39.0-53.0) % RDW 16.2 H (11.5-15.5) %
[2023-06-28] MEDS: FUROSEMIDE 80 MG TAB PO SCH (16:34)
[2023-06-28] MEDS: ACETAMINOPHEN TAB 325 MG TAB PO PRN (22:01)
[2023-06-28] MEDS: ATORVASTATIN 40 MG TAB PO SCH (22:09)
[2023-06-29] MEDS: NITROGLYCERIN OINT 1 INCH/GM PACKET TOPICAL SCH ×2 (05:47→12:11)
[2023-06-29] MEDS: MIDODRINE 5 MG TAB PO SCH ×2 (05:53→12:11)
[2023-06-29] MEDS: carvediloL 6.25 MG TAB PO SCH (06:22)
[2023-06-29] MEDS: FINASTERIDE 5 MG TAB PO SCH (08:38)
[2023-06-29] MEDS: GABAPENTIN 100 MG CAP PO SCH (08:38)
[2023-06-29] MEDS: CLOPIDOGREL 75 MG TAB PO SCH (08:38)
[2023-06-29] MEDS: ASPIRIN 81 MG PO SCH (08:38)
[2023-06-29] MEDS: HEPARIN SODIUM,PORCINE 5,000 UNIT/ML 1 ML VIAL SQ SCH (08:39)
[2023-06-29] MEDS: FUROSEMIDE 80 MG TAB PO SCH (08:39)
--- NOTE | 2023-06-29 09:58 | P.PN ---
Subjective Progress Note Date: 06/28/23 This is a pleasant 83 years old male with past medical history of coronary artery disease status post PCI to diagonal branch, proximal LAD and mid LAD in February 2023. Chronic systolic CHF with low ejection fraction, chronic kidney disease stage IV. Patient presents because of chest pain started 2 hours ago about 10/10 in severity and the middle of the chest going all over the front part felt like DL and then sharp With her shortness of breath but no coughing He states he is on Plavix and WAS at home and he was taking them Currently he feels generally weak. 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 Zuniga He denies smoking alcohol or illicit drugs No change in urine or bowel habits or weakness dizziness numbness. Blood pressure is 1:30/96, rest of vital signs stable Hemoglobin 10.4, creatinine at baseline 2.5 D-dimer elevated at 1.5 but perfusion scan showing nondiagnostic results Elevated troponin Elevated proBNP 41372. Chest x-ray showing CHF EKG shows sinus rhythm at [address]-T changes Objective - Vital Signs Vital signs: Vital Signs Temp 97.8 F 06/29/23 04:00 Pulse 62 06/29/23 04:00 Resp 21 06/29/23 04:00 BP 115/62 06/29/23 04:00 Pulse Ox 98 06/29/23 04:00 FiO2 Intake & Output 06/28/23 06/29/23 06/29/23 18:59 06:59 18:59 Intake Total 480 0 Output Total 475 400 Balance 5 -400 Weight 75 kg Intake: Oral 480 0 Output: Urine 475 400 Uretheral (Potts) 200 Other: Voiding Method Indwelling Catheter Indwelling Catheter # Voids 1 - Exam GENERAL: The patient is alert and oriented x3, not in any acute distress. Well developed, well nourished. HEENT: Pupils are round and equally reacting to light. EOMI. No scleral icterus. No conjunctival pallor. Normocephalic, atraumatic. No pharyngeal erythema. No thyromegaly. CARDIOVASCULAR: S1 and S2 present. No murmurs, rubs, or gallops. -PULMONARY: Chest is clear to auscultation, no wheezing , bilateral middle and distal crackles. -ABDOMEN: Soft, nontender, nondistended, normoactive bowel sounds. No palpable organomegaly. Potts catheter in place MUSCULOSKELETAL: No joint swelling or deformity. EXTREMITIES: No cyanosis, clubbing, or pedal or leg edema. NEUROLOGICAL: Gross neurological examination did not reveal any focal deficits. SKIN: No rashes. no petechiae. - Labs CBC & Chem 7: 06/28/23 08:12 06/28/23 08:12 Labs: Abnormal Lab Results - Last 24 Hours (Table) 06/28/23 Range/Units 08:12 Sodium 135 L (137-145) mmol/L BUN 56 H (9-20) mg/dL Creatinine 2.73 H (0.66-1.25) mg/dL Glucose 114 H (74-99) mg/dL Assessment and Plan Assessment: None STEMI versus unstable angina Acute and chronic with ejection fraction 20-25% Coronary artery disease with PCI of the diagonal branch, proximal LAD, and mid LAD, FebruaryK D stage IV Elevated d-dimer with non-diagnostic perfusion scan for PE History of CVA Diabetes mellitus Hypertension Hyperlipidemia History of osteoarthritis Hypothyroidism Plan: Stopped heparin drip Continue with IV Lasix 40 mg twice daily Continue on aspirin 81 mg and Plavix Cardiology consult Labs and medication were reviewed.. Continue same treatment. Continue with symptomatic treatment. Resume home medication. Monitor labs and vitals. DVT and GI prophylaxis. Further recommendations as per clinical course of the patient DVT prophylaxis: heparin GI Prophylaxis: Pepcid Prognosis is guarded
[2023-06-29 09:59] LABS: Potassium 4.1 mmol/L (3.5-5.1)
[2023-06-29 10:00] LABS: African American GFR (CKD) 25 (>60 ml/min/1.73 sqM); Anion Gap 12 mmol/L; Blood Urea Nitrogen 59 mg/dL (9-20); Calcium 8.9 mg/dL (8.4-10.2); Carbon Dioxide 23 mmol/L (22-30); Chloride 99 mmol/L (98-107); Glucose 104 mg/dL (74-99); Non-African American GFR(CKD) 22 (>60 ml/min/1.73 sqM); Sodium 134 mmol/L (137-145)
--- NOTE | 2023-06-29 10:06 | P.PN ---
Subjective Progress Note Date: 06/29/23 History of present illness: This is an 83-year-old male patient of Dr. RIK Ferrer with past medical history of coronary artery disease status post PCI with recent ischemic cardiomyopathy, hypertension, CVA status post carotid surgery, chronic kidney disease, hyperlipidemia, remote history of tobacco use and dependence. We have been asked to evaluate the patient for chest pain. Patient is seen today in the emergency center waiting for bed on the cardiac stepdown unit. Patient had a recent hospitalization and discharged on 06/19/2023 at which time he was seen by cardiology for acute on chronic heart failure with reduced EF 20 to 25%. Patient was discharged home on 06/19. He states he felt well when he left. He has intermittent dull chest pain in the mid area and feels his main problem is shortness of breath. He does not know if he has gained weight or is retaining fluid. He has a friend catheter in place. Patient has been started on heparin drip and IV Lasix 40 mg every 12 hours. EKG sinus rhythm with left bundle branch block Chest x-ray: CHF with early interstitial pulmonary edema. Small bilateral pleural effusions VQ scan nondiagnostic (low or intermediate probability), pulmonary perfusion only scan. Venous duplex bilateral lower extremity negative for DVT. WBC 7, hemoglobin 10.4, platelet count 180. D-dimer 1.57. Sodium 133, potassium 3.8, BUN 54 and creatinine 2.51 troponin 0.04, 0.046, 0.05. proBNP 3 38,600. Home cardiac medications: Aspirin 81 mg daily, atorvastatin 40 mg daily, Coreg 6.25 mg twice daily, Plavix 75 mg daily Lasix 40 mg twice daily, midodrine 10 mg 3 times daily, Nitrostat as needed. Patient also on Hytrin 5 mg at bedtime Echocardiogram performed on 05/16/2023 revealed technically difficult study. Inadequate visualization of 2 or more contiguous segments. EF 20 to 25%. Mild to moderate mitral regurgitation and mild to moderate tricuspid regurgitation and mild pulmonary hypertension. PCI performed 03/21/2023 with PTCA and stenting of the proximal and mid LAD and major diagonal branch. Transit diagonal occlusion with periprocedure WI chest pain resolved. Echo revealed EF of 35%. No new hypokinesia in the LAD or diagonal distribution. Cardiac catheterization performed 02/28/2023 revealed elevated filling pressures. No gradient across the valve. RCA 55% mid lesion distal to the stent and 40% proximal lesion before the stent. LM 10 to 50% narrowing. LAD with long 80% lesion from the ostium to the mid portions. Circumflex stented segment patent. High OM 70% narrowing in 80% groove branch narrow. 06/27/2023 He denies any chest pain or pressure. His shortness of breath is unchanged. He has been walking to the bathroom and feels a littel better overall today. Creat 2.65. 06/28 Patient continues to deny having any chest pain, no shortness of breath. His oxygen saturation is dropping with ambulation and home oxygen has been arranged. He has a Friend catheter in place which is chronic. Blood pressure 124/72, heart rate in the 70s. Repeat blood work reveals hemoglobin 10.7, potassium 4.3, BUN 56 and creatinine 2.73. 06/29 Yesterday, we transition IV Lasix to oral at 80 mg twice daily with plan to continue this at the time of discharge. Blood pressure 115/62, heart rate in the 60s and 70s, pulse ox 90% on 2 L nasal cannula. Yesterday, we added parameters for midodrine to hold if systolic blood pressures greater than 110. BUN 59 creatinine 2.58. Patient would like to go home today. Physical examination: Gen: This is an 83-year-old male resting in and appears to be in no acute distress VS: reviewed HEENT: Head is atraumatic, normocephalic. Pupils equal, round. Sclerae is anicteric. NECK: Supple. No JVD. LUNGS: Clear to auscultation. No wheezes or rhonchi. No intercostal retractions. HEART: Regular rate and rhythm. No murmur. ABDOMEN: Soft No tenderness. EXTREMITIES: No pedal edema. No calf tenderness. NEUROLOGICAL: Patient is awake, alert and oriented x3. Assessment: NSTEMI Known history of coronary artery disease Ischemic cardiomyopathy Hypertension History of CVA with right-sided carotid endarterectomy Chronic kidney disease Hyperlipidemia Remote history of tobacco use and dependence Plan: Continue patient's home cardiac medications Continue oral Lasix 80 mg twice daily Monitor I&O, daily weight, electrolytes and renal function. Patient is not on PARKER inhibitor or ARB secondary to abnormal kidney function. Not a good interventional candidate secondary to chronic kidney disease. Recomm end medical management. Patient is cleared for discharge from cardiology and may follow-up with Dr. RIK Ritter in 1 to 2 weeks. Nurse practitioner note has been reviewed, I agree with documented findings and plan of care. Patient was seen and examined. Objective - Vital Signs Vital signs: Vital Signs Temp 97.8 F 06/29/23 04:00 Pulse 62 06/29/23 04:00 Resp 21 06/29/23 04:00 BP 115/62 06/29/23 04:00 Pulse Ox 98 06/29/23 04:00 FiO2 Intake & Output 06/28/23 06/29/23 06/29/23 18:59 06:59 18:59 Intake Total 480 0 Output Total 475 400 Balance 5 -400 Weight 75 kg Intake: Oral 480 0 Output: Urine 475 400 Uretheral (Friend) 200 Other: Voiding Method Indwelling Catheter Indwelling Catheter # Voids 1 - Labs CBC & Chem 7: 06/28/23 08:12 06/29/23 07:10 Labs: Abnormal Lab Results - Last 24 Hours (Table) 06/28/23 06/28/23 Range/Units 08:12 08:12 RBC 3.93 L (4.30-5.90) m/uL Hgb 10.7 L (13.0-17.5) gm/dL Hct 34.1 L (39.0-53.0) % RDW 16.2 H (11.5-15.5) % Sodium 135 L (137-145) mmol/L BUN 56 H (9-20) mg/dL Creatinine 2.73 H (0.66-1.25) mg/dL Glucose 114 H (74-99) mg/dL
[2023-06-29 11:05] VITALS: RESP 20; TEMP 97.5
[2023-06-29 12:25] VITALS: BP 138/91; PULSE 72
== END 2023-06-29 13:37 | disposition home or self-care (01) | DRG 280 ==
LOC: EC 14:22 → 3SCARD 16:05 → OBSVTOIN 06-27 08:20
PROVIDERS: ADMIT Internal Medicine; ATTEND Internal Medicine
DX: I21.4 Non-ST elevation (NSTEMI) myocardial infarction (principal); I50.23 Acute on chronic systolic (congestive) heart failure; I13.0 Hypertensive heart and chronic kidney disease with heart failure and stage 1 through stage 4 chronic kidney disease, or unspecified chronic kidney disease; N18.4 Chronic kidney disease, stage 4 (severe); I27.20 Pulmonary hypertension, unspecified; E11.22 Type 2 diabetes mellitus with diabetic chronic kidney disease; I25.110 Atherosclerotic heart disease of native coronary artery with unstable angina pectoris; I69.344 Monoplegia of lower limb following cerebral infarction affecting left non-dominant side; E03.9 Hypothyroidism, unspecified; I08.1 Rheumatic disorders of both mitral and tricuspid valves; I44.7 Left bundle-branch block, unspecified; M19.90 Unspecified osteoarthritis, unspecified site; I25.5 Ischemic cardiomyopathy; M51.36 Other intervertebral disc degeneration, lumbar region; N40.0 Benign prostatic hyperplasia without lower urinary tract symptoms; K21.9 Gastro-esophageal reflux disease without esophagitis; E78.5 Hyperlipidemia, unspecified; Z96.653 Presence of artificial knee joint, bilateral; Z87.891 Personal history of nicotine dependence; Z79.891 Long term (current) use of opiate analgesic; Z79.82 Long term (current) use of aspirin; Z79.02 Long term (current) use of antithrombotics/antiplatelets; Z82.49 Family history of ischemic heart disease and other diseases of the circulatory system; Z95.5 Presence of coronary angioplasty implant and graft; I25.2 Old myocardial infarction; Z79.899 Other long term (current) drug therapy; Z87.19 Personal history of other diseases of the digestive system; Z86.19 Personal history of other infectious and parasitic diseases
CPT/HCPCS: 36415; 71046; 78580; 80048; 80053; 80061; 83735; 83880; 84484; 85025; 85379; 85610; 85730; 93005; 93970; 94760; 96365; 96366; 96375; 96376; 99291

== ENCOUNTER 2023-07-06 09:15 | Inpatient (IN) | payer MEDICARE, BC ==
--- NOTE | 2023-07-06 09:29 | ED ---
General Adult HPI - General Chief complaint: Shortness of Breath Stated complaint: dizziness,sob Time Seen by Provider: 07/06/23 09:16 Source: patient, EMS, RN notes reviewed, old records reviewed Mode of arrival: EMS - History of Present Illness Initial comments: This is an 83-year-old male who presents to the emergency department with a past medical history significant for cardiac stents and a carotid stent. Patient also has a 5-month history of dizziness. Patient states he has not been worked up for this by a doctor that he knows of. Patient states he does not like to wear his oxygen at night because he gets tangled up in the cord so he has been without his oxygen overnight for about 12 to 14 hours. Patient woke up and was short of breath his called the ambulance but according to EMS his lungs were clear and he is oxygenating in the 95-97 range. Patient does not complain of any chest pain or palpitations patient denies any fever chills or cough. Patient states he feels a little dry but other than that he states is breathing he thinks is normal and the dizziness is about the same as it always is. - Related Data Home Medications Medication Instructions Recorded Confirmed Gabapentin [Neurontin] 200 mg PO BID 04/25/23 06/25/23 Lactulose 10 gm PO DAILY PRN 06/02/23 06/25/23 Nitroglycerin Sl Tabs [Nitrostat] 0.4 mg SL Q5M PRN 06/02/23 06/25/23 Clopidogrel [Plavix] 75 mg PO DAILY 06/25/23 06/25/23 Terazosin [Hytrin] 5 mg PO HS 06/25/23 06/25/23 Previous Rx's Medication Instructions Recorded Atorvastatin [Lipitor] 40 mg PO HS #30 tab 11/21/22 Aspirin 81 mg PO DAILY tab 03/22/23 Omeprazole [PriLOSEC] 20 mg PO AC-BRKFST #30 cap 06/04/23 Acetaminophen Tab [Tylenol] 650 mg PO Q6HR PRN tab 06/18/23 Midodrine [ProAmatine] 10 mg PO AC-TID #90 tab 06/18/23 carvediloL [Coreg] 6.25 mg PO BID-W/MEALS #60 tab 06/18/23 Finasteride [Proscar] 5 mg PO DAILY #30 tab 06/19/23 Furosemide [Lasix] 80 mg PO BID@0900,1600 30 Days #30 06/29/23 tab Allergies Allergy/AdvReac Type Severity Reaction Status Date / Time No Known Allergies Allergy Verified 06/25/23 16:56 Review of Systems ROS Statement: Those systems with pertinent positive or pertinent negative responses have been documented in the HPI. ROS Other: All systems not noted in ROS Statement are negative. Past Medical History Past Medical History: Coronary Artery Disease (CAD), Heart Failure, CVA/TIA, GERD/Reflux, Hyperlipidemia, Hypertension, Myocardial Infarction (OK), Musculoskeletal Disorder, Osteoarthritis (OA), Prostate Disorder, Skin Disorder, Thyroid Disorder Additional Past Medical History / Comment(s): Lumbar disc disease, HERNIATED DISC IN BACK. Diverticular disease with diverticulosis, BPH, [place] X2, unknown dates. lft leg weakness post cva (NO ASSISTED DEVICES). SHINGLES IN LEFT EYE. 03/19 cardiac stents Last Myocardial Infarction Date:: 03/2023 History of Any Multi-Drug Resistant Organisms: None Reported Past Surgical History: Adenoidectomy, Heart Catheterization With Stent, Joint Replacement, Tonsillectomy Additional Past Surgical History / Comment(s): Chato KNEE REPLACMENT. Colonoscopy with polypectomy, epidural steroid injections. carotid stents-23 Past Anesthesia/Blood Transfusion Reactions: No Reported Reaction Date of Last Stent Placement:: UNK Past Psychological History: No Psychological Hx Reported Smoking Status: Former smoker Past Alcohol Use History: Rare Past Drug Use History: None Reported - Past Family History Sister(s) Family Medical History: Cancer Additional Family Medical History / Comment(s): Pancreatic cancer. Father History Unknown: Yes Family Medical History: Cancer Mother History Unknown: Yes Family Medical History: Congestive Heart Failure (CHF) Additional Family Medical History / Comment(s): AT AGE 94. General Exam - General Exam Comments Initial Comments: GENERAL: Patient is well-developed and well-nourished. Patient is nontoxic and well- hydrated and is in mild distress. ENT: Neck is soft and supple. No significant lymphadenopathy is noted. Oropharynx is clear. Moist mucous membranes. Neck has full range of motion without eliciting any pain. EYES: Patient states he had shingles in his left eye and has been unable to see out of his left eye except for some shadows and he states that is not changed. The is more red than the left eye. Patient also has what appears to be some defect of the cornea. Patient states his defect is normal for him. PULMONARY: Unlabored respirations. Good breath sounds bilaterally. No audible rales rhonchi or wheezing was noted. CARDIOVASCULAR: There is a regular rate and rhythm without any murmurs gallops or rubs. ABDOMEN: Soft and nontender with normal bowel sounds. SKIN: Skin is clear with no lesions or rashes and otherwise unremarkable. NEUROLOGIC: Patient is alert and oriented x3. Cranial nerves II through XII are grossly intact. Motor and sensory are also intact. Normal speech, volume and content. Symmetrical smile. MUSCULOSKELETAL: Normal extremities with adequate strength and full range of motion. LYMPHATICS: No significant lymphadenopathy is noted PSYCHIATRIC: Normal psychiatric evaluation. Course Vital Signs 07/06/23 09:16 Temperature 97.2 F L Pulse Rate 71 Respiratory 22 Rate Blood Pressure 131/106 O2 Sat by Pulse 98 Oximetry Medical Decision Making - Medical Decision Making EKG is interpreted by myself. EKG shows a sinus rhythm at 65 bpm WI interval is 120 QRS 166 QT interval is 478 QTc is 490. Patient's EKG has a left bundle branch block Was pt. sent in by a medical professional or institution (, PA, SLASHER TENDER, urgent care, hospital, or fpc...) When possible be specific @ -No Did you speak to anyone other than the patient for history (EMS, parent, family, police, friend...)? What history was obtained from this source @ -EMS gave us quite a bit of history from the who is yet to arrive Did you review nursing and triage notes (agree or disagree)? Why? @ -I reviewed and agree with nursing and triage notes Were old charts reviewed (outside hosp., previous admission, EMS record, old EKG , old radiological studies, urgent care reports/EKG's, fpc records)? Report findings @ -I reviewed prior charts prior lab work and prior radiological studies Differential Diagnosis (chest pain, altered mental status, abdominal pain women, abdominal pain men, vaginal bleeding, weakness, fever, dyspnea, syncope, headache, dizziness, GI bleed, back pain, seizure, CVA, palpatations, mental h ealth, musculoskeletal)? @ -Differential Dyspnea: Coronary syndrome, arrhythmia, tamponade, asthma, COPD, pulmonary embolism, pneumonia, pneumothorax, pulmonary effusion, anaphylaxis, diabetic ketoacidosis, flailed chest, pulmonary contusion, diaphragmatic rupture, anemia, neuromuscular, this is not meant to be an all-inclusive list. EKG interpreted by me (3pts min.). @ -As above X-rays interpreted by me (1pt min.). @ -X-ray showed right-sided pleural effusion and signs of vascular congestion CT interpreted by me (1pt min.). @ -None done U/S interpreted by me (1pt. min.). @ -None done What testing was considered but not performed or refused? (CT, X-rays, U/S, labs)? Why? @ -None What meds were considered but not given or refused? Why? @ -None Did you discuss the management of the patient with other professionals (professionals i.e. , PA, SLASHER TENDER, lab, RT, psych nurse, social media designer, tonguer, teacher, worldwide chief creative officer, hospice case manager)? Give summary @ -I spoke with Dr. Marshall and he agreed to admit the patient I admitted the patient wrote admitting orders Was smoking cessation discussed for >3mins.? @ -No Was critical care preformed (if so, how long)? @ -No Were there social determinants of health that impacted care today? How? (Homelessness, low income, unemployed, alcoholism, drug addiction, transportation, low edu. Level, literacy, decrease access to med. care, snf, rehab)? @ -No Was there de-escalation of care discussed even if they declined (Discuss DNR or withdrawal of care, Hospice)? DNR status @ -No What co-morbidities impacted this encounter? (DM, HTN, Smoking, COPD, CAD, Cancer, CVA, ARF, Chemo, Hep., AIDS, mental health diagnosis, sleep apnea, morbid obesity)? @ -None Was patient admitted / discharged? Hospital course, mention meds given and route, prescriptions, significant lab abnormalities, going to OR and other pertinent info. @ -Patient was given Lasix in the emergency department his troponin came back elevated potassium came back low. Patient was then given potassium orally. Troponins were ordered for repeat. Patient remained chest pain-free. Patient will be admitted to Dr. Marshall and cardiology will be consulted Undiagnosed new problem with uncertain prognosis? @ -No Drug Therapy requiring intensive monitoring for toxicity (Heparin, Nitro, Insulin, Cardizem)? @ -No Were any procedures done? @ -No Diagnosis/symptom? @ -Acute pulmonary edema Acute, or Chronic, or Acute on Chronic? @ -Acute Uncomplicated (without systemic symptoms) or Complicated (systemic symptoms)? @ -Complicated Side effects of treatment? @ -No Exacerbation, Progression, or Severe Exacerbation? @ -Yes this is an exacerbation Poses a threat to life or bodily function? How? (Chest pain, [place], [place], pneumonia, PE, COPD, DKA, ARF, appy, cholecystitis, CVA, Diverticulitis, Homicidal, Suicidal, threat to staff... and all critical care pts) @ -Yes this could lead to hypoxia and endorgan dysfunction - Lab Data Result diagrams: 07/06/23 09:30 07/06/23 09:30 Lab Results 07/06/23 07/06/23 07/06/23 Range/Units 09:30 09:30 09:30 WBC 7.5 (3.8-10.6) k/uL RBC 3.45 L (4.30-5.90) m/uL Hgb 9.5 L (13.0-17.5) gm/dL Hct 29.7 L (39.0-53.0) % MCV 86.1 (80.0-100.0) fL MCH 27.6 (25.0-35.0) pg MCHC 32.1 (31.0-37.0) g/dL RDW 16.9 H (11.5-15.5) % Plt Count 165 (150-450) k/uL MPV 9.7 Neutrophils % 63 % Lymphocytes % 28 % Monocytes % 6 % Eosinophils % 2 % Basophils % 0 % Neutrophils # 4.7 (1.3-7.7) k/uL Lymphocytes # 2.1 (1.0-4.8) k/uL Monocytes # 0.5 (0-1.0) k/uL Eosinophils # 0.1 (0-0.7) k/uL Basophils # 0.0 (0-0.2) k/uL Hypochromasia Moderate Anisocytosis Slight PT 13.4 H (10.0-12.5) sec INR 1.3 H (<1.2) APTT 26.8 (22.0-30.0) sec Sodium 136 L (137-145) mmol/L Potassium 2.7 L* (3.5-5.1) mmol/L Chloride 105 (98-107) mmol/L Carbon Dioxide 22 (22-30) mmol/L Anion Gap 9 mmol/L BUN 48 H (9-20) mg/dL Creatinine 2.02 H (0.66-1.25) mg/dL Est GFR (CKD-EPI)AfAm 34 (>60 ml/min/1.73 sqM) Est GFR (CKD-EPI)NonAf 29 (>60 ml/min/1.73 sqM) Glucose 102 H (74-99) mg/dL Plasma Lactic Acid Hunter (0.7-2.0) mmol/L Calcium 7.3 L (8.4-10.2) mg/dL Magnesium 1.9 (1.6-2.3) mg/dL Total Bilirubin 0.6 (0.2-1.3) mg/dL AST 24 (17-59) U/L ALT 27 (4-49) U/L Alkaline Phosphatase 97 (38-126) U/L Troponin I (0.000-0.034) ng/mL NT-Pro-B Natriuret Pep 43166 pg/mL Total Protein 5.2 L (6.3-8.2) g/dL Albumin 2.8 L (3.5-5.0) g/dL 07/06/23 07/06/23 Range/Units 09:30 09:30 WBC (3.8-10.6) k/uL RBC (4.30-5.90) m/uL Hgb (13.0-17.5) gm/dL Hct (39.0-53.0) % MCV (80.0-100.0) fL MCH (25.0-35.0) pg MCHC (31.0-37.0) g/dL RDW (11.5-15.5) % Plt Count (150-450) k/uL MPV Neutrophils % % Lymphocytes % % Monocytes % % Eosinophils % % Basophils % % Neutrophils # (1.3-7.7) k/uL Lymphocytes # (1.0-4.8) k/uL Monocytes # (0-1.0) k/uL Eosinophils # (0-0.7) k/uL Basophils # (0-0.2) k/uL Hypochromasia Anisocytosis PT (10.0-12.5) sec INR (<1.2) APTT (22.0-30.0) sec Sodium (137-145) mmol/L Potassium (3.5-5.1) mmol/L Chloride (98-107) mmol/L Carbon Dioxide (22-30) mmol/L Anion Gap mmol/L BUN (9-20) mg/dL Creatinine (0.66-1.25) mg/dL Est GFR (CKD-EPI)AfAm (>60 ml/min/1.73 sqM) Est GFR (CKD-EPI)NonAf (>60 ml/min/1.73 sqM) Glucose (74-99) mg/dL Plasma Lactic Acid Hunter 1.3 (0.7-2.0) mmol/L Calcium (8.4-10.2) mg/dL Magnesium (1.6-2.3) mg/dL Total Bilirubin (0.2-1.3) mg/dL AST (17-59) U/L ALT (4-49) U/L Alkaline Phosphatase (38-126) U/L Troponin I 0.042 H* (0.000-0.034) ng/mL NT-Pro-B Natriuret Pep pg/mL Total Protein (6.3-8.2) g/dL Albumin (3.5-5.0) g/dL Disposition Clinical Impression: Acute pulmonary edema Disposition: ADMITTED IP TO THIS HOSP Referrals: Armen Adames MD [Primary Care Provider] - 1-2 days Time of Disposition: 10:52
[2023-07-06] MEDS: MECLIZINE 25 MG TAB PO STA (09:34)
[2023-07-06 09:39] LABS: Anisocytosis Slight; Basophils % (A) 0 %; Eosinophils # (A) 0.1 k/uL (0-0.7); Eosinophils % (A) 2 %; HCT 29.7 % (39.0-53.0); HGB 9.5 gm/dL (13.0-17.5); Hypochromasia Moderate; Lymphocytes # (A) 2.1 k/uL (1.0-4.8); Lymphocytes % (A) 28 %; MCH 27.6 pg (25.0-35.0); MCHC 32.1 g/dL (31.0-37.0); MCV 86.1 fL (80.0-100.0); Mean Platelet Volume 9.7; Monocytes # (A) 0.5 k/uL (0-1.0); Monocytes % (A) 6 %; Neutrophils # (A) 4.7 k/uL (1.3-7.7); Neutrophils % (A) 63 %; Platelet Count 165 k/uL (150-450); RBC 3.45 m/uL (4.30-5.90); RDW 16.9 % (11.5-15.5); WBC 7.5 k/uL (3.8-10.6)
[2023-07-06 09:49] LABS: ALT 27 U/L (4-49); AST 24 U/L (17-59); African American GFR (CKD) 34 (>60 ml/min/1.73 sqM); Albumin 2.8 g/dL (3.5-5.0); Alkaline Phosphatase 97 U/L (38-126); Anion Gap 9 mmol/L; Blood Urea Nitrogen 48 mg/dL (9-20); Calcium 7.3 mg/dL (8.4-10.2); Carbon Dioxide 22 mmol/L (22-30); Chloride 105 mmol/L (98-107); Glucose 102 mg/dL (74-99); INR 1.3 (<1.2); Magnesium 1.9 mg/dL (1.6-2.3); Non-African American GFR(CKD) 29 (>60 ml/min/1.73 sqM); Partial Thromboplastin Time 26.8 sec (22.0-30.0); Prothrombin Time 13.4 sec (10.0-12.5); Sodium 136 mmol/L (137-145); Total Bilirubin 0.6 mg/dL (0.2-1.3); Total Protein 5.2 g/dL (6.3-8.2)
--- NOTE | 2023-07-06 09:53 | XR ---
EXAMINATION TYPE: XR chest 2V DATE OF EXAM: 07/06/2023 COMPARISON: 06/25/2023 HISTORY: Shortness of breath TECHNIQUE: Frontal and lateral views of the chest are obtained. FINDINGS: There is probable cardiomegaly. There are small bilateral pleural effusions and mild pulmonary vascul ar congestion. Findings are most consistent with CHF comparable to that seen on the prior study of . The osseous structures are intact. IMPRESSION: Findings most consistent with [id number] CHF.
[2023-07-06] MEDS: ONDANSETRON 4 MG/2 ML VIAL IVP STA (09:54)
[2023-07-06] MEDS: SODIUM CHLORIDE 0.9% 1,000 ML IV STA (09:57)
[2023-07-06 09:58] LABS: Potassium 2.7 mmol/L (3.5-5.1)
--- NOTE | 2023-07-06 10:13 | CT ---
EXAMINATION TYPE: CT brain wo con DATE OF EXAM: 07/06/2023 COMPARISON: 11/12/2022 HISTORY: Dizziness, pt dealing with vertigo x5 months. Hx CVA/TIA CT DLP: 1183.4 mGycm Automated exposure control for dose reduction was used. FINDINGS: The ventricles, basal cisterns and sulci over the convexities are moderately enlarged consistent with moderate age-appropriate atrophy. No abnormal density is seen throughout the brain parenchyma. There is no acute intra or extra-axial hemorrhage. There is no mass effect or shift of midline structures. Intraorbital contents appear normal symmetric. Visualized paranasal sinuses and mastoid air cells are well aerated. IMPRESSION: NO ACUTE BLEED OR MASS EFFECT. AGE-APPROPRIATE ATROPHY.
[2023-07-06] MEDS: POTASSIUM CHLORIDE ER 20 MEQ TAB.ER PO STA (10:20)
[2023-07-06 10:30] LABS: NT-Pro-B-Type Natriuretic Pept 44700 pg/mL
[2023-07-06] MEDS: FUROSEMIDE 10 MG/ML 4 ML VIAL IV STA (10:36)
[2023-07-06] MEDS: NITROGLYCERIN OINT 1 INCH/GM PACKET TOPICAL SCH (11:55)
--- NOTE | 2023-07-06 12:59 | P.HPIM ---
History of Present Illness H&P Date: 07/06/23 History of present illness; patient is a 83-year-old gentleman with past medical history significant for congestive heart failure systolic dysfunction, BPH, history of CVA, gastroesophageal reflux disease, degenerative disease of spine who presented to hospital for shortness of breath.. Patient accompanied by his according to her patient was all right yesterday when he started noticing shortness of breath. Shortness of breath was present at rest as well as on exertion. There was no complaint of chest pain .patient was complaining of orthopnea. There was no complaint of PND. There was no comment of fever or chills. Because shortness of breath, patient came to the ER Initial lab work done in the ER showed WBC 7.5, hemoglobin 9.5, platelet count 165, sodium 136, potassium 2.7, BUN 48, creatinine 2.02, troponin 0.042 EKG done in the ER showed heart rate of 65 , no ST segment elevation or depression seen, no T-wave inversions seen. Chest x-ray done in the ER shows mild to moderate CHF CT head done showed no acute intracranial process Patient admitted to internal medicine service REVIEW OF SYSTEMS: CONSTITUTIONAL: No fever, no malaise, no fatigue. HEENT: No recent visual problems or hearing problems. Denied any sore throat. CARDIOVASCULAR: As mentioned HPI PULMONARY: Mentioned HPI GASTROINTESTINAL: No diarrhea, no nausea, no vomiting, no abdominal pain. NEUROLOGICAL: No headaches, no weakness, no numbness. HEMATOLOGICAL: Denies any bleeding or petechiae. GENITOURINARY: Denies any burning micturition, frequency, or urgency. MUSCULOSKELETAL/RHEUMATOLOGICAL: Denies any joint pain, swelling, or any muscle pain. ENDOCRINE: Denies any polyuria or polydipsia. The rest of the 14-point review of systems is negative. PHYSICAL EXAMINATION: GENERAL: The patient is alert and oriented x3, not in any acute distress. Well developed, well nourished. HEENT: Pupils are round and equally reacting to light. EOMI. No scleral icterus. No conjunctival pallor. Normocephalic, atraumatic. No pharyngeal erythema. No thyromegaly. CARDIOVASCULAR: S1 and S2 present. No murmurs, rubs, or gallops. PULMONARY: Diminished breath sounds bases bilaterally,, crackles audible ABDOMEN: Soft, nontender, nondistended, normoactive bowel sounds. No palpable organomegaly. MUSCULOSKELETAL: No joint swelling or deformity. EXTREMITIES: No cyanosis, clubbing, or pedal edema. NEUROLOGICAL: Gross neurological examination did not reveal any focal deficits. SKIN: No rashes. Assessment and plan Acute on chronic heart failure with reduced EF, 20-25% Hypokalemia Ischemic cardiomyopathy Coronary artery disease with PCI of the diagonal branch, proximal LAD, and mid LAD, February 2023 Hypertension Hyperlipidemia Acute on chronic kidney disease Abnormal troponins, likely secondary to above, no evidence of acute coronary syndrome Mild pulmonary hypertension Monitor vital signs Monitor CBC Monitor CMP Continue telemetry monitoring Strict I's and O's Daily weights Continue IV Lasix 40 mg 3 times daily Trend troponins Resume home meds Consult cardiology Consult nephrology Labs and medication were reviewed.. Continue same treatment. Continue with symptomatic treatment. Resume home medication. Monitor labs and vitals. DVT and GI prophylaxis. Further recommendations as per clinical course of the patient Dictation was produced using [employer] dictation software. please excuse any grammatical, word or spelling errors. Past Medical History Past Medical History: Coronary Artery Disease (CAD), Heart Failure, CVA/TIA, GERD/Reflux, Hyperlipidemia, Hypertension, Myocardial Infarction ([place]), Musculoskeletal Disorder, Osteoarthritis (OA), Prostate Disorder, Skin Disorder, Thyroid Disorder Additional Past Medical History / Comment(s): Lumbar disc disease, HERNIATED DISC IN BACK. Diverticular disease with diverticulosis, BPH, [place] X2, unknown dates. lft leg weakness post cva (NO ASSISTED DEVICES). SHINGLES IN LEFT EYE. 03/19 cardiac stents Last Myocardial Infarction Date:: 03/2023 History of Any Multi-Drug Resistant Organisms: None Reported Past Surgical History: Adenoidectomy, Heart Catheterization With Stent, Joint Replacement, Tonsillectomy Additional Past Surgical History / Comment(s): Chato KNEE REPLACMENT. Colonoscopy with polypectomy, epidural steroid injections. carotid stents- Past Anesthesia/Blood Transfusion Reactions: No Reported Reaction Date of Last Stent Placement:: UNK Past Psychological History: No Psychological Hx Reported Smoking Status: Former smoker Past Alcohol Use History: Rare Past Drug Use History: None Reported - Past Family History Sister(s) Family Medical History: Cancer Additional Family Medical History / Comment(s): Pancreatic cancer. Father History Unknown: Yes Family Medical History: Cancer Mother History Unknown: Yes Family Medical History: Congestive Heart Failure (CHF) Additional Family Medical History / Comment(s): AT AGE 94. Medications and Allergies Home Medications Medication Instructions Recorded Confirmed Type Atorvastatin [Lipitor] 40 mg PO HS #30 tab 11/21/22 07/06/23 Rx Aspirin 81 mg PO DAILY tab 03/22/23 07/06/23 Rx Gabapentin [Neurontin] 200 mg PO BID 04/25/23 07/06/23 History Lactulose 10 gm PO DAILY PRN 06/02/23 07/06/23 History Nitroglycerin Sl Tabs [Nitrostat] 0.4 mg SL Q5M PRN 06/02/23 07/06/23 History Omeprazole [PriLOSEC] 20 mg PO AC-BRKFST #30 cap 06/04/23 07/06/23 Rx Acetaminophen Tab [Tylenol] 650 mg PO Q6HR PRN tab 06/18/23 07/06/23 Rx Midodrine [ProAmatine] 10 mg PO AC-TID #90 tab 06/18/23 07/06/23 Rx carvediloL [Coreg] 6.25 mg PO BID-W/MEALS #60 tab 06/18/23 07/06/23 Rx Finasteride [Proscar] 5 mg PO DAILY #30 tab 06/19/23 07/06/23 Rx Clopidogrel [Plavix] 75 mg PO DAILY 06/25/23 07/06/23 History Terazosin [Hytrin] 5 mg PO HS 06/25/23 07/06/23 History Furosemide [Lasix] 80 mg PO BID@0900,1600 30 Days #30 06/29/23 07/06/23 Rx tab Ciprofloxacin HCl [Cipro] 250 mg PO Q12HR 07/06/23 07/06/23 History Allergies Allergy/AdvReac Type Severity Reaction Status Date / Time No Known Allergies Allergy Verified 07/06/23 11:34 Physical Exam Vitals: Vital Signs Temp Pulse Pulse Resp BP BP Pulse Ox 07/06/23 11:53 97.6 F 95 20 127/86 97 07/06/23 11:49 97.4 F L 73 19 131/83 95 07/06/23 09:16 97.2 F L 71 22 131/106 98 Intake and Output 07/05/23 07/06/23 07/06/23 22:59 06:59 14:59 Other: # Voids 1 Weight 78.018 kg Results CBC & Chem 7: 07/06/23 09:30 07/06/23 09:30 Labs: Abnormal Lab Results - Last 24 Hours (Table) 07/06/23 07/06/23 07/06/23 Range/Units 09:30 09:30 09:30 RBC 3.45 L (4.30-5.90) m/uL Hgb 9.5 L (13.0-17.5) gm/dL Hct 29.7 L (39.0-53.0) % RDW 16.9 H (11.5-15.5) % PT 13.4 H (10.0-12.5) sec INR 1.3 H (<1.2) Sodium 136 L (137-145) mmol/L Potassium 2.7 L* (3.5-5.1) mmol/L BUN 48 H (9-20) mg/dL Creatinine 2.02 H (0.66-1.25) mg/dL Glucose 102 H (74-99) mg/dL Calcium 7.3 L (8.4-10.2) mg/dL Troponin I (0.000-0.034) ng/mL Total Protein 5.2 L (6.3-8.2) g/dL Albumin 2.8 L (3.5-5.0) g/dL 07/06/23 07/06/23 Range/Units 09:30 11:55 RBC (4.30-5.90) m/uL Hgb (13.0-17.5) gm/dL Hct (39.0-53.0) % RDW (11.5-15.5) % PT (10.0-12.5) sec INR (<1.2) Sodium (137-145) mmol/L Potassium (3.5-5.1) mmol/L BUN (9-20) mg/dL Creatinine (0.66-1.25) mg/dL Glucose (74-99) mg/dL Calcium (8.4-10.2) mg/dL Troponin I 0.042 H* 0.053 H* (0.000-0.034) ng/mL Total Protein (6.3-8.2) g/dL Albumin (3.5-5.0) g/dL
--- NOTE | 2023-07-06 15:29 | P.CRDCN ---
History of Present Illness History of present illness: History of present illness: This is an 83-year-old male patient of Dr. RIK Ferrer with past medical history of coronary artery disease status post PCI with recent ischemic cardiomyopathy, hypertension, CVA status post carotid surgery, chronic kidney disease, hyperlipidemia, remote history of tobacco use and dependence. We have been asked to evaluate the patient for shortness of breath. He apparently did not wear his oxygen overnight and woke up short of breath. EMS was called and he was brought in. He is sleeping laying flat in bed now looking comfortable with his and daughter at the bedside. He has been started on IV lasix BID. EKG sinus rhythm with left bundle branch block Chest x-ray: Consistent with mild to moderate CHF. Laboratory data reviewed, hemoglobin 9.5, platelets 165, sodium 136, potassium 2.7, creatinine 2.02, magnesium 1.9, troponin 0.0 42, 0.0 53, NT proBNP 44,700. Home cardiac medications: Aspirin 81 mg daily, atorvastatin 40 mg daily, Coreg 6.25 mg twice daily, Plavix 75 mg daily Lasix 40 mg twice daily, midodrine 10 mg 3 times daily, Nitrostat as needed. Patient also on Hytrin 5 mg at bedtime Echocardiogram performed on 05/16/2023 revealed technically difficult study. Inadequate visualization of 2 or more contiguous segments. EF 20 to 25%. Mild to moderate mitral regurgitation and mild to moderate tricuspid regurgitation and mild pulmonary hypertension. PCI performed 03/21/2023 with PTCA and stenting of the proximal and mid LAD and major diagonal branch. Transit diagonal occlusion with periprocedure UT chest pain resolved. Echo revealed EF of 35%. No new hypokinesia in the LAD or diagonal distribution. Cardiac catheterization performed 02/28/2023 revealed elevated filling pressures. No gradient across the valve. RCA 55% mid lesion distal to the stent and 40% proximal lesion before the stent. LM 10 to 50% narrowing. LAD with long 80% lesion from the ostium to the mid portions. Circumflex stented segment patent. High OM 70% narrowing in 80% groove branch narrow. Review Of Systems: At the time of my evaluation: Constitutional: No fever, no chills. No weakness, fatigue or lethargy. EENT: No headache. No dizziness. Lungs: + shortness of breath, cough, no sputum production. No wheezing. + LEYVA. Cardiovascular: No chest pain, no lower extremity edema. No palpitations. No paroxysmal nocturnal dyspnea. No orthopnea. No lightheadedness or dizziness. No syncopal episodes. Abdominal: No abdominal pain. No nausea, vomiting. No diarrhea. No constipation. No bloody or tarry stools. Genitourinary: No dysuria. possible urinary retention-friend. Musculoskeletal: No myalgias. No muscle weakness, no frequent falls. Integumentary: No wounds. No rash. No unusual bruising. Neurologic: No aphasia. No facial droop. No change in mentation. Physical examination: Gen: This is an 83-year-old male resting in and appears to be in no acute distress Vital signs, blood pressure 131/83 heart rate 73 afebrile maintaining oxygen saturation on nasal cannula. HEENT: Head is atraumatic, normocephalic. Pupils equal, round. Sclerae is anicteric. NECK: Supple. Positive JVD. LUNGS: Clear to auscultation. No wheezes or rhonchi. No intercostal retractions. HEART: Regular rate and rhythm. No murmur. ABDOMEN: Soft No tenderness. EXTREMITIES: No pedal edema. No calf tenderness. NEUROLOGICAL: Patient is awake, alert and oriented x3. Assessment: Acute on chronic systolic heart failure Known history of coronary artery disease Ischemic cardiomyopathy Hypertension History of CVA with right-sided carotid endarterectomy Chronic kidney disease Hyperlipidemia Remote history of tobacco use and dependence Plan: Continue patient's home cardiac medications noted that Plavix and midodrine were not resumed Continue IV Lasix 40 mg every 12 hours BMP in the morning Monitor I&O, daily weight, electrolytes and renal function Patient is not on PARKER inhibitor or ARB secondary to abnormal kidney function Further recommendations to follow based upon clinical course Thank you kindly for this consultation. Nurse practitioner note has been reviewed, I agree with documented findings and plan of care. Patient was seen and examined. Past Medical History Past Medical History: Coronary Artery Disease (CAD), Heart Failure, CVA/TIA, GERD/Reflux, Hyperlipidemia, Hypertension, Myocardial Infarction ([place]), Musculoskeletal Disorder, Osteoarthritis (OA), Prostate Disorder, Skin Disorder, Thyroid Disorder Additional Past Medical History / Comment(s): Lumbar disc disease, HERNIATED DISC IN BACK. Diverticular disease with diverticulosis, BPH, [place] X2, unknown dates. lft leg weakness post cva (NO ASSISTED DEVICES). SHINGLES IN LEFT EYE. 03/19 cardiac stents Last Myocardial Infarction Date:: 03/2023 History of Any Multi-Drug Resistant Organisms: None Reported Past Surgical History: Adenoidectomy, Heart Catheterization With Stent, Joint Replacement, Tonsillectomy Additional Past Surgical History / Comment(s): Chato KNEE REPLACMENT. Colonoscopy with polypectomy, epidural steroid injections. carotid stents- Past Anesthesia/Blood Transfusion Reactions: No Reported Reaction Date of Last Stent Placement:: UNK Past Psychological History: No Psychological Hx Reported Smoking Status: Former smoker Past Alcohol Use History: Rare Past Drug Use History: None Reported - Past Family History Sister(s) History Unknown: Yes Family Medical History: Cancer Additional Family Medical History / Comment(s): Pancreatic cancer. Father History Unknown: Yes Family Medical History: Cancer Mother History Unknown: Yes Family Medical History: Congestive Heart Failure (CHF) Additional Family Medical History / Comment(s): AT AGE 94. Medications and Allergies Home Medications Medication Instructions Recorded Confirmed Type Atorvastatin [Lipitor] 40 mg PO HS #30 tab 11/21/22 07/06/23 Rx Aspirin 81 mg PO DAILY tab 03/22/23 07/06/23 Rx Gabapentin [Neurontin] 200 mg PO BID 04/25/23 07/06/23 History Lactulose 10 gm PO DAILY PRN 06/02/23 07/06/23 History Nitroglycerin Sl Tabs [Nitrostat] 0.4 mg SL Q5M PRN 06/02/23 07/06/23 History Omeprazole [PriLOSEC] 20 mg PO AC-BRKFST #30 cap 06/04/23 07/06/23 Rx Acetaminophen Tab [Tylenol] 650 mg PO Q6HR PRN tab 06/18/23 07/06/23 Rx Midodrine [ProAmatine] 10 mg PO AC-TID #90 tab 06/18/23 07/06/23 Rx carvediloL [Coreg] 6.25 mg PO BID-W/MEALS #60 tab 06/18/23 07/06/23 Rx Finasteride [Proscar] 5 mg PO DAILY #30 tab 06/19/23 07/06/23 Rx Clopidogrel [Plavix] 75 mg PO DAILY 06/25/23 07/06/23 History Terazosin [Hytrin] 5 mg PO HS 06/25/23 07/06/23 History Furosemide [Lasix] 80 mg PO BID@0900,1600 30 Days #30 06/29/23 07/06/23 Rx tab Ciprofloxacin HCl [Cipro] 250 mg PO Q12HR 07/06/23 07/06/23 History Allergies Allergy/AdvReac Type Severity Reaction Status Date / Time No Known Allergies Allergy Verified 07/06/23 11:34 Physical Exam Vitals: Vital Signs Temp Pulse Pulse Resp BP BP Pulse Ox 07/06/23 12:51 97.4 F L 73 19 131/83 95 07/06/23 11:53 97.6 F 95 20 127/86 97 07/06/23 11:49 97.4 F L 73 19 131/83 95 07/06/23 09:16 97.2 F L 71 22 131/106 98 Intake and Output 07/06/23 07/06/23 07/06/23 06:59 14:59 22:59 Intake Total 400 Balance 400 Intake: Oral 400 Other: Voiding Method Toilet Urinal # Voids 2 Weight 78.018 kg Results 07/06/23 09:30 07/06/23 09:30 Cardiac Enzymes 07/06/23 07/06/23 07/06/23 Range/Units 09:30 09:30 11:55 AST 24 (17-59) U/L Troponin I 0.042 H* 0.053 H* (0.000-0.034) ng/mL Coagulation 07/06/23 Range/Units 09:30 PT 13.4 H (10.0-12.5) sec APTT 26.8 (22.0-30.0) sec CBC 07/06/23 Range/Units 09:30 WBC 7.5 (3.8-10.6) k/uL RBC 3.45 L (4.30-5.90) m/uL Hgb 9.5 L (13.0-17.5) gm/dL Hct 29.7 L (39.0-53.0) % Plt Count 165 (150-450) k/uL Comprehensive Metabolic Panel 07/06/23 Range/Units 09:30 Sodium 136 L (137-145) mmol/L Potassium 2.7 L* (3.5-5.1) mmol/L Chloride 105 (98-107) mmol/L Carbon Dioxide 22 (22-30) mmol/L BUN 48 H (9-20) mg/dL Creatinine 2.02 H (0.66-1.25) mg/dL Glucose 102 H (74-99) mg/dL Calcium 7.3 L (8.4-10.2) mg/dL AST 24 (17-59) U/L ALT 27 (4-49) U/L Alkaline Phosphatase 97 (38-126) U/L Total Protein 5.2 L (6.3-8.2) g/dL Albumin 2.8 L (3.5-5.0) g/dL Current Medications Generic Name Dose Route Start Last Admin Trade Name Freq PRN Reason Stop Dose Admin Acetaminophen 650 mg 07/06/23 12:46 Acetaminophen Tab 325 Mg Tab PO Q6HR PRN Mild Pain or Fever > 100.5 Aspirin 81 mg 07/07/23 09:00 Aspirin 81 Mg PO DAILY [facility] Atorvastatin Calcium 40 mg 07/06/23 21:00 Atorvastatin 40 Mg Tab PO HS [facility] Carvedilol 6.25 mg 07/06/23 17:30 Carvedilol 6.25 Mg Tab PO BID-W/MEALS [facility] Clopidogrel Bisulfate 75 mg 07/07/23 09:00 Clopidogrel 75 Mg Tab PO DAILY [facility] Doxazosin Mesylate 4 mg 07/06/23 21:00 Doxazosin 4 Mg Tab PO HS [facility] Finasteride 5 mg 07/07/23 09:00 Finasteride 5 Mg Tab PO DAILY [facility] Furosemide 40 mg 07/06/23 19:00 Furosemide 10 Mg/Ml 4 Ml Vial IV Q8H [facility] Gabapentin 200 mg 07/06/23 21:00 Gabapentin 100 Mg Cap PO BID [facility] Midodrine 10 mg 07/06/23 17:30 Midodrine 5 Mg Tab PO AC-TID [facility] Nitroglycerin 1 inch 07/06/23 12:00 07/06/23 11:55 Nitroglycerin Oint 1 Inch/Gm Packet TOPICAL 07/07/23 12:01 1 inch Q6HR [facility] Administration Pantoprazole Sodium 40 mg 07/07/23 07:30 Pantoprazole 40 Mg Tablet PO AC-BRKFST [facility] Potassium Chloride 20 meq 07/06/23 21:00 Potassium Chloride Er 20 Meq Tab.Er PO BID [facility] Intake and Output 07/06/23 07/06/2324 06:59 14:59 22:59 Intake Total 400 Balance 400 Intake: Oral 400 Other: Voiding Method Toilet Urinal # Voids 2 Weight 78.018 kg Patient Weight 07/07/23 06:59 Weight 78.018 kg 07/06/23 09:30 07/06/23 09:30
[2023-07-06] MEDS: ALPRAZolam 0.25 MG TAB PO PRN (16:33)
[2023-07-06] MEDS: carvediloL 6.25 MG TAB PO SCH (16:33)
[2023-07-06] MEDS: ACETAMINOPHEN TAB 325 MG TAB PO PRN (17:16)
[2023-07-06] MEDS: MIDODRINE 5 MG TAB PO SCH (17:30)
[2023-07-06] MEDS: FUROSEMIDE 10 MG/ML 4 ML VIAL IV SCH (18:36)
[2023-07-06] MEDS ORDERED: PROPRANOLOL 10 MG TAB PO PRN (19:12)
--- NOTE | 2023-07-06 19:16 | P.CN ---
Psychiatric Consult - . Consult date: 07/06/23 Consult:: 07/06/23 18:58 IDENTIFYING DATA: This patient is a 83-year-old male REASON FOR REFERRAL: Psychiatry was consulted for "thoughts about suicide " HISTORY OF PRESENT ILLNESS: The patient presented to the hospital for CHF exacerbation. Per RN: "on the suicide part of the admission patient said yes to wishing to be and suicidal thoughts. But stated he promised with he wouldn't do anything and dose not have a plan or hasn't thought about how he would do it. He only said yes to those questions because he has been so sick and in the hospital." Patient was seen bedside this evening. He had been given Xanax 0.25 mg at 1633. He appeared to be sedated and needed to be aroused for the interview numerous times. Patient states that he had been doing relatively well until needing hospitalization. He states that he is "horrible "since he has been hospitalized. However, he reports having "great" mood while at home. He reports enjoying spending time with his and likes to mow the lawn. He smiles as he talks about this. He denies having depression or having low mood, apart from the past 2 days since there has been a decline in his medical health. 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 He also denies passive suicidal ideation, active suicidal ideation, intent or plan. Quite to the opposite, he states that he has been trying to recover his medical and physical health. He denies having anxiety but it appears that he has been started on Xanax 0.25 mg every 8 hours when necessary for anxiety/restlessness. RN states that patient has been restless and fidgeting in his bed. Patient reports sleeping well and eating well. He reports good energy well at home although this is currently declined since he's been hospitalized. At this time patient denies any suicidal or homicidal ideation, intent or plan. He is future oriented and would like to improve his health and get back home to his family. Patient denies any auditory, visual hallucinations and denies any paranoia or delusions. PAST PSYCHIATRIC HISTORY: Patient denies being on any psychiatric medications. Patient denies any previous psychiatric hospitalizations. Patient denies any psychiatric outpatient follow-up. Patient denies any history of suicide attempts in the past. PAST MEDICAL HISTORY: Past Medical History: Coronary Artery Disease (CAD), Heart Failure, CVA/TIA, GERD/Reflux, Hyperlipidemia, Hypertension, Myocardial Infarction ([place]), Musculoskeletal Disorder, Osteoarthritis (OA), Prostate Disorder, Skin Disorder, Thyroid Disorder Additional Past Medical History / Comment(s): Lumbar disc disease, HERNIATED DISC IN BACK. Diverticular disease with diverticulosis, BPH, [place] X2, unknown dates. lft leg weakness post cva (NO ASSISTED DEVICES). SHINGLES IN LEFT EYE. 03/19 cardiac stents Last Myocardial Infarction Date:: 03/2023 History of Any Multi-Drug Resistant Organisms: None Reported Past Surgical History: Adenoidectomy, Heart Catheterization With Stent, Joint R eplacement, Tonsillectomy Additional Past Surgical History / Comment(s): Chato KNEE REPLACMENT. Colonoscopy with polypectomy, epidural steroid injections. carotid stents- Past Anesthesia/Blood Transfusion Reactions: No Reported Reaction Date of Last Stent Placement:: UNK Past Psychological History: No Psychological Hx Reported Smoking Status: Former smoker Past Alcohol Use History: Rare Past Drug Use History: None Reported ALLERGIES: as per EMR. CHEMICAL DEPENDENCY HISTORY: Denies all FAMILY PSYCHIATRIC/SUBSTANCE USE HISTORY: Denies SOCIAL HISTORY: Patient reports having been for 61 years. He currently resides with his . He has one child. He reports having worked in [employer] for number of years MENTAL STATUS EXAM: General Appearance: Patient appears to be stated age is somnolent, cooperative. Patient appears to have fair hygiene and grooming wearing hospital gown with poor eye contact (eyes closing from sedation) Behavior: Slightly restless and wanting to move his bed up and down Speech: Patient's speech is fluent and nonpressured. Mood/Affect: Patient reports their mood is "oh fine", affect is congruent Suicidality/Homicidality: Patient denies having any suicidal or homicidal ideation intent or plan. Perceptions: Patient denies any visual hallucinations and denies any auditory hallucinations Though content/process: There is no evidence of any delusional thought content and thought process is linear and goal-directed. Memory and concentration: Grossly oriented to the interview Judgment and insight: Fair IMPRESSIONS: Mood disorder due to general medical condition PLAN: -At this time patient DOES NOT meet criteria for inpatient psychiatric admission. -Delirium precautions recommended with patient including - avoiding use of narcotics and SECURITY EXPERT sedatives, limit anticholinergic medications when possible, frequent re-orientation, minimize use of restraints, open window shades during the day and close them at night -Would recommend the following medication changes/additions: Recommend discontinuing Xanax 0.25 mg every 8 hours when necessary for anxiety due to risk of causing delirium Recommend Propranolol 10 mg BID PRN for anxiety/restlessness. Discontinue in case of hypotension/dizziness. This is not to be continued outpatient May consider Zoloft 25 mg daily to be initiated in the future to prevent anxiety if pt is continuing to experience anxiety -Can discontinue 1:1 sitter at this time as patient is not currently an imminent threat to themselves -Communicated plan to patient's nurse -Psychiatry will sign off at this time -Please contact with any questions. 07/06/23 19:16
[2023-07-06] MEDS: ATORVASTATIN 40 MG TAB PO SCH (20:33)
[2023-07-06] MEDS: GABAPENTIN 100 MG CAP PO SCH (20:34)
[2023-07-06] MEDS: POTASSIUM CHLORIDE ER 20 MEQ TAB.ER PO SCH (20:34)
[2023-07-06] MEDS: DOXAZOSIN 4 MG TAB PO SCH (20:34)
[2023-07-07] MEDS: PANTOPRAZOLE 40 MG TABLET PO SCH (06:06)
[2023-07-07 07:44] LABS: Anisocytosis Slight; Basophils % (A) 0 %; Eosinophils # (A) 0.3 k/uL (0-0.7); Eosinophils % (A) 4 %; HCT 35.5 % (39.0-53.0); HGB 11.1 gm/dL (13.0-17.5); Hypochromasia Moderate; Lymphocytes % (A) 28 %; MCH 27.4 pg (25.0-35.0); MCHC 31.4 g/dL (31.0-37.0); MCV 87.3 fL (80.0-100.0); Mean Platelet Volume 9.1; Monocytes # (A) 0.4 k/uL (0-1.0); Monocytes % (A) 6 %; Neutrophils # (A) 4.3 k/uL (1.3-7.7); Neutrophils % (A) 60 %; Platelet Count 168 k/uL (150-450); RBC 4.06 m/uL (4.30-5.90); RDW 16.7 % (11.5-15.5)
[2023-07-07 07:58] LABS: ALT 66 U/L (4-49); AST 57 U/L (17-59); African American GFR (CKD) 25 (>60 ml/min/1.73 sqM); Albumin 3.4 g/dL (3.5-5.0); Alkaline Phosphatase 201 U/L (38-126); Anion Gap 10 mmol/L; Blood Urea Nitrogen 54 mg/dL (9-20); Calcium 8.8 mg/dL (8.4-10.2); Carbon Dioxide 28 mmol/L (22-30); Chloride 100 mmol/L (98-107); Glucose 116 mg/dL (74-99); Non-African American GFR(CKD) 22 (>60 ml/min/1.73 sqM); Potassium 3.5 mmol/L (3.5-5.1); Sodium 138 mmol/L (137-145); Total Bilirubin 0.7 mg/dL (0.2-1.3)
[2023-07-07 09:49] LABS: Glucose,Whole Blood 103 mg/dL (70-110)
[2023-07-07 10:04] LABS: ABG Oxygen Saturation 97.6 % (94-97); ABG PCO2 31 mmHg (35-45); Allen Test Performed? Yes
[2023-07-07 10:11] LABS: ABG HCO3 31 mmol/L (21-25); ABG PO2 126 mmHg (83-108); ABG TCO2 32 mmol/L (19-24)
[2023-07-07 10:12] LABS: ABG Base Excess 9.4 mmol/L
--- NOTE | 2023-07-07 10:40 | CT ---
EXAMINATION TYPE: CT brain wo con DATE OF EXAM: 07/07/2023 COMPARISON: 07/06/2023 HISTORY: AMS from yesterday, scan from 07/06/[address] DLP: 1197.4 mGycm Automated exposure control for dose reduction was used. FINDINGS: The ventricles, basal cisterns and sulci over convexities are moderately enlarged consistent with mod erate generalized atrophy appropriate for the patient's age. There is no mass effect or shift of the midline structures. There is a remote lacunar infarct in left basal ganglia There is no acute intra or extra-axial hemorrhage. The posterior fossa and within the brainstem, fourth ventricle and cerebellopontine angles appear robina ssly normal. The intraorbital contents appear normal and symmetric. Visualized paranasal sinuses and mastoid air cells are well aerated and the calvarium is intact. IMPRESSION: 1. No acute bleed or mass effect. 2. Small remote lacunar infarct in the left basal ganglia. 3. Moderate age-appropriate atrophy.
[2023-07-07] MEDS: FINASTERIDE 5 MG TAB PO SCH (11:38)
--- NOTE | 2023-07-07 11:48 | P.NPCON ---
History of Present Illness - Reason for Consult chronic renal failure - History of Present Illness Patient is a 83-year-old male with history of coronary artery disease, ischemic cardiomyopathy with ejection fraction of 20-25%, hypertension, chronic kidney disease NKF stage IV with baseline creatinine around 2.2-2.5 mg/dL. Patient is admitted to the hospital with complaints of shortness of breath. Patient apparently did not with the oxygen at night and was significantly short of breath in the morning and therefore came into the hospital. No complaints of fever chills nausea vomiting or abdominal pain. Currently with indwelling Potts catheter. Chest x-ray shows evidence of CHF and patient is currently maintained on IV Lasix twice a day. Serum creatinine at 2.6 mg/dL today. 50 ML of urine charted Review of Systems As per HPI Past Medical History Past Medical History: Coronary Artery Disease (CAD), Heart Failure, CVA/TIA, GERD/Reflux, Hyperlipidemia, Hypertension, Myocardial Infarction ([place]), Musculoskeletal Disorder, Osteoarthritis ([place]), Prostate Disorder, Skin Disorder, Thyroid Disorder Additional Past Medical History / Comment(s): Lumbar disc disease, HERNIATED DISC IN BACK. Diverticular disease with diverticulosis, BPH, [place] X2, unknown dates. lft leg weakness post cva (NO ASSISTED DEVICES). SHINGLES IN LEFT EYE. 03/19 cardiac stents Last Myocardial Infarction Date:: 03/2023 History of Any Multi-Drug Resistant Organisms: None Reported Past Surgical History: Adenoidectomy, Heart Catheterization With Stent, Joint Replacement, Tonsillectomy Additional Past Surgical History / Comment(s): Chato KNEE REPLACMENT. Colonoscopy with polypectomy, epidural steroid injections. carotid stents- Past Anesthesia/Blood Transfusion Reactions: No Reported Reaction Date of Last Stent Placement:: UNK Past Psychological History: No Psychological Hx Reported Smoking Status: Former smoker Past Alcohol Use History: Rare Past Drug Use History: None Reported - Past Family History Sister(s) History Unknown: Yes Family Medical History: Cancer Additional Family Medical History / Comment(s): Pancreatic cancer. Father History Unknown: Yes Family Medical History: Cancer Mother History Unknown: Yes Family Medical History: Congestive Heart Failure (CHF) Additional Family Medical History / Comment(s): AT AGE 94. Medications and Allergies Home Medications Medication Instructions Recorded Confirmed Type Atorvastatin [Lipitor] 40 mg PO HS #30 tab 11/21/22 07/06/23 Rx Aspirin 81 mg PO DAILY tab 03/22/23 07/06/23 Rx Gabapentin [Neurontin] 200 mg PO BID 04/25/23 07/06/23 History Lactulose 10 gm PO DAILY PRN 06/02/23 07/06/23 History Nitroglycerin Sl Tabs [Nitrostat] 0.4 mg SL Q5M PRN 06/02/23 07/06/23 History Omeprazole [PriLOSEC] 20 mg PO AC-BRKFST #30 cap 06/04/23 07/06/23 Rx Acetaminophen Tab [Tylenol] 650 mg PO Q6HR PRN tab 06/18/23 07/06/23 Rx Midodrine [ProAmatine] 10 mg PO AC-TID #90 tab 06/18/23 07/06/23 Rx carvediloL [Coreg] 6.25 mg PO BID-W/MEALS #60 tab 06/18/23 07/06/23 Rx Finasteride [Proscar] 5 mg PO DAILY #30 tab 06/19/23 07/06/23 Rx Clopidogrel [Plavix] 75 mg PO DAILY 06/25/23 07/06/23 History Terazosin [Hytrin] 5 mg PO HS 06/25/23 07/06/23 History Furosemide [Lasix] 80 mg PO BID@0900,1600 30 Days #30 06/29/23 07/06/23 Rx tab Ciprofloxacin HCl [Cipro] 250 mg PO Q12HR 07/06/23 07/06/23 History Allergies Allergy/AdvReac Type Severity Reaction Status Date / Time No Known Allergies Allergy Verified 07/06/23 11:34 Physical Exam Vitals: Vital Signs Temp Pulse Pulse Resp BP BP Pulse Ox 07/07/23 08:00 98 F 66 16 116/74 97 07/07/23 03:20 68 18 133/84 90 L 07/06/23 23:07 75 20 127/87 90 L 07/06/23 19:40 73 18 131/77 95 07/06/23 15:31 88 19 141/89 98 07/06/23 12:51 97.4 F L 73 19 131/83 95 07/06/23 11:53 97.6 F 95 20 127/86 97 07/06/23 11:49 97.4 F L 73 19 131/83 95 Intake and Output 07/06/23 07/07/23 07/07/23 22:59 06:59 14:59 Output Total 950 Balance -950 Output: Urine 950 Other: Voiding Method Toilet Toilet Toilet Urinal Urinal Urinal # Voids 3 Weight 78 kg Patient is awake, comfortable, no acute distress Examination of the heart S1 and S2 Examination the lungs bilateral breath sounds are heard Abdomen is soft nontender Examination lower extremity shows no significant edema METALWORKER exam shows patient is moving all 4 extremities. He was confused this morning. Results - Lab Results Most recent lab results ABG pH 7.60 (7.35-7.45) H* 07/07/23 10:01 ABG pCO2 31 mmHg (35-45) L 07/07/23 10:01 ABG pO2 126 mmHg (83-108) H 07/07/23 10:01 ABG HCO3 31 mmol/L (21-25) H 07/07/23 10:01 ABG O2 Saturation 97.6 % (94-97) H 07/07/23 10:01 Calcium 8.8 mg/dL (8.4-10.2) 07/07/23 07:27 Magnesium 2.3 mg/dL (1.6-2.3) 07/07/23 07:27 07/07/23 07:27 07/07/23 07:27 Assessment and Plan Assessment: 1. Chronic kidney disease NKF stage IV secondary to nephrosclerosis and cardiorenal syndrome with baseline creatinine now staying at about 2.2-2.5 mg/dL 2. Acute on chronic systolic CHF 3. Volume overload 4. Cardiomyopathy with EF of 20-25% 5. Hypokalemia status post replacement Plan: Continue current dose of IV Lasix Continue midodrine Replace potassium Repeat labs in a.m. Hold midodrine for systolic blood pressure more than 110 mmHg Thank you for the consultation. We will continue to follow the patient with you during his hospitalization.
[2023-07-07] MEDS: ASPIRIN 81 MG PO SCH (11:49)
[2023-07-07] MEDS: CLOPIDOGREL 75 MG TAB PO SCH (11:50)
--- NOTE | 2023-07-07 11:54 | P.PN ---
Subjective Progress Note Date: 07/07/23 patient is a 83-year-old gentleman with past medical history significant for congestive heart failure systolic dysfunction, BPH, history of CVA, gastroesophageal reflux disease, degenerative disease of spine who presented to hospital for shortness of breath.. Patient accompanied by his according to her patient was all right yesterday when he started noticing shortness of breath. Shortness of breath was present at rest as well as on exertion. There was no complaint of chest pain .patient was complaining of orthopnea. There was no complaint of PND. There was no comment of fever or chills. Because shortness of breath, patient came to the ER Initial lab work done in the ER showed WBC 7.5, hemoglobin 9.5, platelet count 165, sodium 136, potassium 2.7, BUN 48, creatinine 2.02, troponin 0.042 EKG done in the ER showed heart rate of 65 , no ST segment elevation or depression seen, no T-wave inversions seen. Chest x-ray done in the ER shows mild to moderate CHF CT head done showed no acute intracranial process Patient admitted to internal medicine service 07/07. Patient seen examined. Lab work done this morning showed WBC 7, hemoglobin 11.1, sodium 138, potassium 3.5, BUN 54, creatinine 2.60. Patient was lethargic this morning, moving all extremities, responding to questions. On telemetry, patient was bradycardic. Start EKG, CT head and ABGs were ordered. Patient became more arousable during the course of testing REVIEW OF SYSTEMS: Denies any chest pain. Denies nausea or vomiting. Denies any shortness of breath. PHYSICAL EXAMINATION: GENERAL: The patient is lethargic, not in any acute distress. Well developed, well nourished. HEENT: Pupils are round and equally reacting to light. EOMI. No scleral icterus. No conjunctival pallor. Normocephalic, atraumatic. No pharyngeal erythema. No thyromegaly. CARDIOVASCULAR: S1 and S2 present. No murmurs, rubs, or gallops. PULMONARY: Chest is clear to auscultation, no wheezing or crackles. ABDOMEN: Soft, nontender, nondistended, normoactive bowel sounds. No palpable organomegaly. MUSCULOSKELETAL: No joint swelling or deformity. EXTREMITIES: No cyanosis, clubbing, or pedal edema. NEUROLOGICAL: Gross neurological examination did not reveal any focal deficits. Moving all extremities SKIN: No rashes. Assessment and plan Acute on chronic heart failure with reduced EF, 20-25% Hypokalemia Ischemic cardiomyopathy Coronary artery disease with PCI of the diagonal branch, proximal LAD, and mid LAD, February 2023 Hypertension Hyperlipidemia Acute on chronic kidney disease Abnormal troponins, likely secondary to above, no evidence of acute coronary syndrome Mild pulmonary hypertension CVA status post carotid surgery, Mood disorder due to general medical condition Monitor vital signs Monitor CBC Monitor CMP Continue telemetry monitoring Strict I's and O's Daily weights Continue IV Lasix 40 mg 3 times daily Continue aspirin, Plavix, Lipitor Hold beta-laya Continue Cardura and finasteride Ordered CT head Ordered ABG Ordered EEG Cardiology following Nephrology following Neurology consulted Psychiatry eval the patient recommended following Recommend discontinuing Xanax 0.25 mg every 8 hours when necessary for anxiety due to risk of causing delirium Recommend Propranolol 10 mg BID PRN for anxiety/restlessness. At this time we will not give propranolol because of bradycardia May consider Zoloft 25 mg daily to be initiated in the future to prevent anxiety if pt is continuing to experience anxiety Labs and medication were reviewed.. Continue same treatment. Continue with symptomatic treatment. Resume home medication. Monitor labs and vitals. DVT and GI prophylaxis. Further recommendations as per clinical course of the patient Dictation was produced using [employer] dictation software. please excuse any grammatical, word or spelling errors. Objective - Vital Signs Vital signs: Vital Signs Temp 98 F 07/07/23 08:00 Pulse 66 07/07/23 08:00 Resp 16 07/07/23 08:00 BP 116/74 07/07/23 08:00 Pulse Ox 97 07/07/23 08:00 FiO2 Intake & Output 07/06/23 07/07/23 07/07/23 18:59 06:59 18:59 Intake Total 400 Output Total 950 Balance 400 -950 Weight 78.018 kg 78 kg Intake: Oral 400 Output: Urine 950 Other: Voiding Method Toilet Toilet Urinal Urinal # Voids 2 3 - Labs CBC & Chem 7: 07/07/23 07:27 07/07/23 07:27 Labs: Abnormal Lab Results - Last 24 Hours (Table) 07/06/23 07/06/23 07/06/23 Range/Units 09:30 09:30 09:30 RBC 3.45 L (4.30-5.90) m/uL Hgb 9.5 L (13.0-17.5) gm/dL Hct 29.7 L (39.0-53.0) % RDW 16.9 H (11.5-15.5) % PT 13.4 H (10.0-12.5) sec INR 1.3 H (<1.2) Sodium 136 L (137-145) mmol/L Potassium 2.7 L* (3.5-5.1) mmol/L BUN 48 H (9-20) mg/dL Creatinine 2.02 H (0.66-1.25) mg/dL Glucose 102 H (74-99) mg/dL Calcium 7.3 L (8.4-10.2) mg/dL ALT (4-49) U/L Alkaline Phosphatase (38-126) U/L Troponin I (0.000-0.034) ng/mL Total Protein 5.2 L (6.3-8.2) g/dL Albumin 2.8 L (3.5-5.0) g/dL 07/06/23 07/06/23 07/06/23 Range/Units 09:30 11:55 15:07 RBC (4.30-5.90) m/uL Hgb (13.0-17.5) gm/dL Hct (39.0-53.0) % RDW (11.5-15.5) % PT (10.0-12.5) sec INR (<1.2) Sodium (137-145) mmol/L Potassium (3.5-5.1) mmol/L BUN (9-20) mg/dL Creatinine (0.66-1.25) mg/dL Glucose (74-99) mg/dL Calcium (8.4-10.2) mg/dL ALT (4-49) U/L Alkaline Phosphatase (38-126) U/L Troponin I 0.042 H* 0.053 H* 0.055 H* (0.000-0.034) ng/mL Total Protein (6.3-8.2) g/dL Albumin (3.5-5.0) g/dL 07/07/23 07/07/23 Range/Units 07:27 07:27 RBC 4.06 L (4.30-5.90) m/uL Hgb 11.1 L (13.0-17.5) gm/dL Hct 35.5 L (39.0-53.0) % RDW 16.7 H (11.5-15.5) % PT (10.0-12.5) sec INR (<1.2) Sodium (137-145) mmol/L Potassium (3.5-5.1) mmol/L BUN 54 H (9-20) mg/dL Creatinine 2.60 H (0.66-1.25) mg/dL Glucose 116 H (74-99) mg/dL Calcium (8.4-10.2) mg/dL ALT 66 H (4-49) U/L Alkaline Phosphatase 201 H (38-126) U/L Troponin I (0.000-0.034) ng/mL Total Protein 6.0 L (6.3-8.2) g/dL Albumin 3.4 L (3.5-5.0) g/dL
[2023-07-07] MEDS ORDERED: MIDODRINE 5 MG TAB PO PRN (12:06)
--- NOTE | 2023-07-07 13:46 | P.PN ---
Subjective History of present illness: This is an 83-year-old male patient of Dr. RIK Ferrer with past medical history of coronary artery disease status post PCI with recent ischemic cardiomyopathy, hypertension, CVA status post carotid surgery, chronic kidney disease, hyperlipidemia, remote history of tobacco use and dependence. We have been asked to evaluate the patient for shortness of breath. He apparently did not wear his oxygen overnight and woke up short of breath. EMS was called and he was brought in. He is sleeping laying flat in bed now looking comfortable with his and daughter at the bedside. He has been started on IV lasix BID. EKG sinus rhythm with left bundle branch block Chest x-ray: Consistent with mild to moderate CHF. Laboratory data reviewed, hemoglobin 9.5, platelets 165, sodium 136, potassium 2.7, creatinine 2.02, magnesium 1.9, troponin 0.0 42, 0.0 53, NT proBNP 44,700. Home cardiac medications: Aspirin 81 mg daily, atorvastatin 40 mg daily, Coreg 6.25 mg twice daily, Plavix 75 mg daily Lasix 40 mg twice daily, midodrine 10 mg 3 times daily, Nitrostat as needed. Patient also on Hytrin 5 mg at bedtime Echocardiogram performed on 05/16/2023 revealed technically difficult study. Inadequate visualization of 2 or more contiguous segments. EF 20 to 25%. Mild to moderate mitral regurgitation and mild to moderate tricuspid regurgitation and mild pulmonary hypertension. PCI performed 03/21/2023 with PTCA and stenting of the proximal and mid LAD and major diagonal branch. Transit diagonal occlusion with periprocedure RI chest pain resolved. Echo revealed EF of 35%. No new hypokinesia in the LAD or diagonal distribution. Cardiac catheterization performed 02/28/2023 revealed elevated filling pressures. No gradient across the valve. RCA 55% mid lesion distal to the stent and 40% proximal lesion before the stent. LM 10 to 50% narrowing. LAD with long 80% lesion from the ostium to the mid portions. Circumflex stented segment patent. High OM 70% narrowing in 80% groove branch narrow. 07/07/2023 Patient seen and examined resting comfortably laying flat in bed with family at the bedside. He is a bit more lethargic today. Blood pressure 125/78 heart rate 68 afebrile maintaining oxygen saturation on nasal cannula. Laboratory data reviewed, WBC 7, hemoglobin 11.1, platelets 168, sodium 138, potassium 3.5, creatinine 2.6 and magnesium 2.3. Family is tearful at the bedside. His states that the patient has verbalized to her he is tired. Physical examination: Gen: This is an 83-year-old male resting in and appears to be in no acute distress Vital signs, blood pressure 131/83 heart rate 73 afebrile maintaining oxygen saturation on nasal cannula. HEENT: Head is atraumatic, normocephalic. Pupils equal, round. Sclerae is anicteric. NECK: Supple. Positive JVD. LUNGS: Clear to auscultation. No wheezes or rhonchi. No intercostal retractions. HEART: Regular rate and rhythm. No murmur. ABDOMEN: Soft No tenderness. EXTREMITIES: No pedal edema. No calf tenderness. NEUROLOGICAL: Patient is lethargic. Assessment: Acute on chronic systolic heart failure Known history of coronary artery disease Ischemic cardiomyopathy Hypertension History of CVA with right-sided carotid endarterectomy Chronic kidney disease Hyperlipidemia Remote history of tobacco use and dependence Plan: Transition to oral diuretics, changed to Bumex 1 mg p.o. twice daily. Make midodrine as needed. BMP in the morning. No need to repeat echo on this admission, he just had one done revealing poor LV systolic function. Patient is not on PARKER inhibitor or ARB secondary to abnormal kidney function. Prognosis guarded, discussed with family considering possible palliative/hospice care. They seem receptive. Further recommendations to follow based upon clinical course Nurse practitioner note has been reviewed, I agree with documented findings and plan of care. Patient was seen and examined. Objective - Vital Signs Vital signs: Vital Signs Temp 98 F 07/07/23 11:45 Pulse 68 07/07/23 11:45 Resp 16 07/07/23 11:45 BP 125/78 07/07/23 11:45 Pulse Ox 96 07/07/23 11:45 FiO2 Intake & Output 07/06/23 07/07/23 07/07/23 18:59 06:59 18:59 Intake Total 400 Output Total 950 Balance 400 -950 Weight 78.018 kg 78 kg Intake: Oral 400 Output: Urine 950 Other: Voiding Method Toilet Toilet Toilet Urinal Urinal Urinal # Voids 2 3 - Labs CBC & Chem 7: 07/07/23 07:27 07/07/23 07:27 Labs: Abnormal Lab Results - Last 24 Hours (Table) 07/06/23 07/07/23 07/07/23 Range/Units 15:07 07:27 07:27 RBC 4.06 L (4.30-5.90) m/uL Hgb 11.1 L (13.0-17.5) gm/dL Hct 35.5 L (39.0-53.0) % RDW 16.7 H (11.5-15.5) % ABG pH (7.35-7.45) ABG pCO2 (35-45) mmHg ABG pO2 (83-108) mmHg ABG HCO3 (21-25) mmol/L ABG Total CO2 (19-24) mmol/L ABG O2 Saturation (94-97) % BUN 54 H (9-20) mg/dL Creatinine 2.60 H (0.66-1.25) mg/dL Glucose 116 H (74-99) mg/dL ALT 66 H (4-49) U/L Alkaline Phosphatase 201 H (38-126) U/L Troponin I 0.055 H* (0.000-0.034) ng/mL Total Protein 6.0 L (6.3-8.2) g/dL Albumin 3.4 L (3.5-5.0) g/dL 07/07/23 Range/Units 10:01 RBC (4.30-5.90) m/uL Hgb (13.0-17.5) gm/dL Hct (39.0-53.0) % RDW (11.5-15.5) % ABG pH 7.60 H* (7.35-7.45) ABG pCO2 31 L (35-45) mmHg ABG pO2 126 H (83-108) mmHg ABG HCO3 31 H (21-25) mmol/L ABG Total CO2 32 H (19-24) mmol/L ABG O2 Saturation 97.6 H (94-97) % BUN (9-20) mg/dL Creatinine (0.66-1.25) mg/dL Glucose (74-99) mg/dL ALT (4-49) U/L Alkaline Phosphatase (38-126) U/L Troponin I (0.000-0.034) ng/mL Total Protein (6.3-8.2) g/dL Albumin (3.5-5.0) g/dL
[2023-07-07] MEDS: BUMETANIDE 1 MG TAB PO SCH (16:43)
[2023-07-07] MEDS: MECLIZINE 12.5 MG TAB PO PRN (16:43)
--- NOTE | 2023-07-08 01:23 | P.CNNES ---
History of Present Illness Consult date: 07/07/23 Requesting physician: Dyllan Marshall Reason for Consult: AMS History of Present Illness: Patient is a 83-year-old male with history of CHF, came to the hospital by ambulance yesterday at 9:15 AM. Patient tells me that he has been having shortness of breath for couple days. He also has been having dizziness for couple days before he came to the hospital. The nurse Amanda who is taking care of patient mentions that he has been in and out of the hospital multiple times in the last 3 weeks for CHF exacerbation and also had an acute UT recently. Patient is very vibrant, very jolly, but today he has been altered, very leth argic therefore neurology consulted for altered mental status. Today he was difficult to arouse although he is holding conversations. He is recognizing staff members. Patient has been able to walk to the bathroom by himself. Patient at present denies any headache. He is legally blind in the left eye. As per EMS flow sheet, when they arrived, patient was complaining of dizziness and low oxygen saturations. Patient is reported to be noncompliant with his home oxygen and does not appear it at night because he "gets tangled up". Patient's dizziness has been going on for last 5 months and he has been seeing multiple times for it. Patient has rapid and labored respiration. Patient denies dyspnea initially when asked. Patient lung sounds are clear and equal bilaterally. Patient's blood pressure at the scene was 135/85 pulse rate 77 respiration 24 saturation 99%. Blood test with WBC 7.5 hemoglobin 9.5, platelets are normal. INR 1.3. Sodium 136 potassium 2.7, which is now normal 3.5. BUN 48, creatinine 2.02. Hepatic panel is normal. Troponins are mildly elevated. Patient's ABG with pH 7.60, pCO2 31, pO2 126, saturation 97%. CT head showed no acute bleed or mass effect. Small remote lacunar infarct in the left basal ganglia. Moderate age-related atrophy. I personally reviewed CT head, agree with the findings. Chest x-ray revealed findings most consistent with [id number] CHF. EKG shows atrial fibrillation, which apparently has been reviewed, crossed out and mentioned sinus rhythm. Cardiology on board. Patient has history of smoking 1 pack per day for 30 years, quit in 1967. Patient has chronic pain in the right shoulder. Also has chronic low back pain. Patient's last 2-D echo from 05/16/2023 revealed moderately increased left ventricular wall thickness. Severely increased left-ventricular systolic volume. Severely decreased left ventricular ejection fraction with EF 20-25%. Severe global hypokinesis with anterior apical and anterior septal akinesis. Severely increased left atrial volume. Mildly increased left atrial area. Review of Systems Constitutional: Reports weight loss, Denies chills, Denies fever Eyes: left loss of vision (chronic), denies blurred vision, denies pain Ears: right: decreased hearing, tinnitus, deny: earache Ears, nose, mouth and throat: Reports vertigo, Denies headache, Denies sore throat Cardiovascular: Reports orthopnea, Reports shortness of breath, Denies chest pain, Denies lightheadedness, Denies syncope Respiratory: Denies cough, Denies excessive sputum Gastrointestinal: Reports nausea, Denies abdominal pain, Denies diarrhea, Denies vomiting Genitourinary: Denies dysuria, Denies incontinence Musculoskeletal: Reports low back pain, Denies neck pain Integumentary: Denies pruritus, Denies rash Neurological: Reports as per HPI Psychiatric: Reports depression, Denies anxiety Endocrine: Reports fatigue, Reports weight change Hematologic/Lymphatic: Reports easy bruising, Denies easy bleeding Past Medical History Past Medical History: Coronary Artery Disease (CAD), Heart Failure, CVA/TIA, GERD/Reflux, Hyperlipidemia, Hypertension, Myocardial Infarction (UT), Musculoskeletal Disorder, Osteoarthritis (OA), Prostate Disorder, Skin Disorder, Thyroid Disorder Additional Past Medical History / Comment(s): Lumbar disc disease, HERNIATED DISC IN BACK. Diverticular disease with diverticulosis, BPH, UT X2, unknown dates. lft leg weakness post cva (NO ASSISTED DEVICES). SHINGLES IN LEFT EYE. 03/19 cardiac stents Last Myocardial Infarction Date:: 03/2023 History of Any Multi-Drug Resistant Organisms: None Reported Past Surgical History: Adenoidectomy, Heart Catheterization With Stent, Joint Replacement, Tonsillectomy Additional Past Surgical History / Comment(s): Chato KNEE REPLACMENT. Colonoscopy with polypectomy, epidural steroid injections. carotid stents-23 Past Anesthesia/Blood Transfusion Reactions: No Reported Reaction Date of Last Stent Placement:: UNK Past Psychological History: No Psychological Hx Reported Smoking Status: Former smoker Past Alcohol Use History: Rare Past Drug Use History: None Reported - Past Family History Sister(s) History Unknown: Yes Family Medical History: Cancer Additional Family Medical History / Comment(s): Pancreatic cancer. Father History Unknown: Yes Family Medical History: Cancer Mother History Unknown: Yes Family Medical History: Congestive Heart Failure (CHF) Additional Family Medical History / Comment(s): AT AGE 94. Medications and Allergies Home Medications Medication Instructions Recorded Confirmed Type Atorvastatin [Lipitor] 40 mg PO HS #30 tab 11/21/22 07/06/23 Rx Aspirin 81 mg PO DAILY tab 03/22/23 07/06/23 Rx Gabapentin [Neurontin] 200 mg PO BID 04/25/23 07/06/23 History Lactulose 10 gm PO DAILY PRN 06/02/23 07/06/23 History Nitroglycerin Sl Tabs [Nitrostat] 0.4 mg SL Q5M PRN 06/02/23 07/06/23 History Omeprazole [PriLOSEC] 20 mg PO AC-BRKFST #30 cap 06/04/23 07/06/23 Rx Acetaminophen Tab [Tylenol] 650 mg PO Q6HR PRN tab 06/18/23 07/06/23 Rx Midodrine [ProAmatine] 10 mg PO AC-TID #90 tab 06/18/23 07/06/23 Rx carvediloL [Coreg] 6.25 mg PO BID-W/MEALS #60 tab 06/18/23 07/06/23 Rx Finasteride [Proscar] 5 mg PO DAILY #30 tab 06/19/23 07/06/23 Rx Clopidogrel [Plavix] 75 mg PO DAILY 06/25/23 07/06/23 History Terazosin [Hytrin] 5 mg PO HS 06/25/23 07/06/23 History Furosemide [Lasix] 80 mg PO BID@0900,1600 30 Days #30 06/29/23 07/06/23 Rx tab Ciprofloxacin HCl [Cipro] 250 mg PO Q12HR 07/06/23 07/06/23 History Allergies Allergy/AdvReac Type Severity Reaction Status Date / Time No Known Allergies Allergy Verified 07/06/23 11:34 Physical Examination - Vital Signs Vital Signs: Vital Signs Temp Pulse Resp BP Pulse Ox 07/07/23 11:45 98 F 68 16 125/78 96 02/11/24 08:00 98 F 66 16 116/74 97 07/07/23 03:20 68 18 133/84 90 L 07/06/23 23:07 75 20 127/87 90 L 07/06/23 19:40 73 18 131/77 95 07/06/23 15:31 88 19 141/89 98 Intake and Output 07/07/23 07/07/23 07/07/23 06:59 14:59 22:59 Intake Total 120 Output Total 950 Balance -950 120 Intake: Oral 120 Output: Urine 950 Other: Voiding Method Toilet Toilet Urinal Urinal Weight 78 kg Patient is an elderly male, very pleasant, who is in moderate respiratory distress, with difficulty breathing. Patient is alert awake oriented to time place and person. Patient knows it is June is 2023, and that he is in [facility] and name of the current president and the name of the nurse. Speech and language functions are normal. Patient can name and repeat very well. No aphasia or dysarthria. Attention, concentration is slightly impaired and fund of knowledge is adequate. On cranial nerve examination, his left cornea is completely hazy and is legally blind in the left eye. His right pupil is round and reacting to light. His visual saini are full on confrontation, with no neglect on double simultaneous stimulation. Extraocular muscles are intact with no nystagmus. Face is symmet johnathan, tongue protrudes to the midline. Palatal elevation and sensation normal, hearing is severely decreased in the right ear and shoulder shrug normal, facial sensation normal. On muscle strength testing, there is no pronator drift and the strength is normal in arms and legs distally and proximally, except right shoulder which is weak from chronic arthritis issues. Deep tendon reflexes are symmetric 1+ to 2 and symmetric and plantars downgoing. Sensory to touch is equal with no neglect on double simultaneous stimulation. Cerebellar function showed no ataxia for [id number] testing. No dysdiadochokinesia. No ataxia for [id number] testing on either side. Tone and bulk of muscles normal. Gait deferred.. On general examination, there is no carotid bruit or murmur, S1-S2 audible. Chest is clear on consultation. Abdomen is soft nontender. No organomegaly, bowel sounds present. Peripheral pulses are present. No peripheral edema. Results - Laboratory Findings CBC and BMP: 07/07/23 07:27 07/07/23 07:27 Abnormal Lab Findings: Abnormal Labs 07/06/23 07/06/23 07/06/23 09:30 09:30 09:30 RBC 3.45 L Hgb 9.5 L Hct 29.7 L RDW 16.9 H PT 13.4 H INR 1.3 H ABG pH ABG pCO2 ABG pO2 ABG HCO3 ABG Total CO2 ABG O2 Saturation Sodium 136 L Potassium 2.7 L* BUN 48 H Creatinine 2.02 H Glucose 102 H Calcium 7.3 L ALT Alkaline Phosphatase Troponin I Total Protein 5.2 L Albumin 2.8 L 07/06/23 07/06/23 07/06/23 09:30 11:55 15:07 RBC Hgb Hct RDW PT INR ABG pH ABG pCO2 ABG pO2 ABG HCO3 ABG Total CO2 ABG O2 Saturation Sodium Potassium BUN Creatinine Glucose Calcium ALT Alkaline Phosphatase Troponin I 0.042 H* 0.053 H* 0.055 H* Total Protein Albumin 07/07/23 07/07/23 07/07/23 07:27 07:27 10:01 RBC 4.06 L Hgb 11.1 L Hct 35.5 L RDW 16.7 H PT INR ABG pH 7.60 H* ABG pCO2 31 L ABG pO2 126 H ABG HCO3 31 H ABG Total CO2 32 H ABG O2 Saturation 97.6 H Sodium Potassium BUN 54 H Creatinine 2.60 H Glucose 116 H Calcium ALT 66 H Alkaline Phosphatase 201 H Troponin I Total Protein 6.0 L Albumin 3.4 L Assessment and Plan Assessment: * Altered mental status, likely due to metabolic encephalopathy. Reasons multifactorial as mentioned below. * Chronic dizziness, probably from peripheral vestibular dysfunction. Patient has chronic right hearing loss. Rule out Mnire's. No significant wax impaction. Rule out other cardiopulmonary causes of dizziness. * Acute on chronic systolic CHF with volume overload * Metabolic alkalosis. * Chronic renal disease * Severe cardiomyopathy, with EF 25-30% * Hypokalemia * CAD * Hypertension * History of CVA 11/14/2022, with right sided TCAR * History of left ICA stenosis 70% * Hyperlipidemia * Legally blind left eye. * X tobacco use Plan: * Carotid Doppler, follow-up on left ICA stenosis. Patient has history of right T-CAR in October 2022. * Continue aspirin 81 mg, Plavix 75 mg and Lipitor 40 mg * Try meclizine 12.5 mg 3 times a day when necessary. * Check B12, folate * Other medical management as per IM and other specialties on board. * Primary has ordered EEG. * 2-D echo pending. * Telemetry monitoring reporting sinus arrhythmia. * Dr. Moe Samano Will resume neurology service the morning. * Thank you for the consult.
[2023-07-08 07:00] LABS: Anisocytosis Slight; Basophils % (A) 0 %; Eosinophils % (A) 1 %; HCT 35.7 % (39.0-53.0); Hypochromasia Moderate; Lymphocytes # (A) 1.8 k/uL (1.0-4.8); Lymphocytes % (A) 20 %; MCH 26.8 pg (25.0-35.0); MCHC 30.8 g/dL (31.0-37.0); MCV 86.8 fL (80.0-100.0); Mean Platelet Volume 8.2; Monocytes # (A) 0.5 k/uL (0-1.0); Monocytes % (A) 6 %; Neutrophils # (A) 6.3 k/uL (1.3-7.7); Neutrophils % (A) 72 %; Platelet Count 179 k/uL (150-450); RBC 4.12 m/uL (4.30-5.90); RDW 16.9 % (11.5-15.5); WBC 8.8 k/uL (3.8-10.6)
[2023-07-08 07:19] LABS: ALT 137 U/L (4-49); AST 136 U/L (17-59); African American GFR (CKD) 24 (>60 ml/min/1.73 sqM); Albumin 3.6 g/dL (3.5-5.0); Alkaline Phosphatase 268 U/L (38-126); Anion Gap 10 mmol/L; Blood Urea Nitrogen 56 mg/dL (9-20); Calcium 9.1 mg/dL (8.4-10.2); Carbon Dioxide 26 mmol/L (22-30); Chloride 100 mmol/L (98-107); Glucose 131 mg/dL (74-99); Non-African American GFR(CKD) 21 (>60 ml/min/1.73 sqM); Potassium 4.5 mmol/L (3.5-5.1); Sodium 136 mmol/L (137-145); Total Bilirubin 0.7 mg/dL (0.2-1.3); Total Protein 6.2 g/dL (6.3-8.2)
--- NOTE | 2023-07-08 08:34 | US ---
EXAMINATION TYPE: US carotid duplex BILAT DATE OF EXAM: 07/08/2023 Exam done portable COMPARISON: US 2022 CLINICAL INDICATION: Male, 83 years old with history of dizziness; TECHNIQUE: Carotid duplex ultrasound examination. Indirect Doppler criteria was utilized. FINDINGS: EXAM MEASUREMENTS: RIGHT: Peak Systolic Velocity (PSV) cm/sec ----- Right CCA: 46.9 ----- Right ICA: 55.0 ----- Right ECA: 75.0 ICA/CCA ratio: 1.2 RIGHT: End Diastole cm/sec ----- Right CCA: 16.2 ----- Right ICA: 20.5 ----- Right ECA: 6.4 LEFT: Peak Systolic Velocity (PSV) cm/sec ----- Left CCA: 40.3 ----- Left ICA: 136.9 ----- Left ECA: 33.6 ICA/CCA ratio: 3.4 LEFT: End Diastole cm/sec ----- Left CCA: 14.1 ----- Left ICA: 52.8 ----- Left ECA: 0.0 VERTEBRALS (direction of flow): Right Vertebral: unable to visualize Left Vertebral: Antegrade Rhythm: Normal Technically difficult study due to patient's heavy breathing IMPRESSION: * 50-69 % stenosis of the left carotid bifurcation. * Less than 50% stenosis of the right carotid bifurcation Criteria for Assigning % of Stenosis / Diameter reduction (Estimation based on the indirect measurements of the internal carotid artery velocities (ICA PSV). 1. Normal (no stenosis)=ICA PSV < 125 cm/s: ratio < 2.0: ICA EDV<40 cm/s. 2. Less than 50% stenosis=ICA PSV < 125 cm/s: ratio < 2.0: ICA EDV<40 cm/s. 3. 50 to 69% stenosis=ICA PSV of 125 to 230 cm/s: ration 2.0 ? 4.0: ICA EDV 40-100 cm/s. 4. Greater than 70% stenosis to near occlusion= ICA PSV > 230 cm/s: ratio > 4.0: ICA EDV > 100 cm/s. 5. Near occlusion= ICA PSV velocities may be low or undetectable: variable ratio and ICA EDV. 6. Total occlusion=unable to detect flow.
--- NOTE | 2023-07-08 11:07 | P.PN ---
Subjective Patient is seen in follow-up for acute kidney injury on chronic kidney disease. Renal function stable. On IV Lasix. Admits to good urine output. Denies chest pain or shortness of breath. Vital signs are stable. General: No acute distress. HEENT: Head exam is unremarkable. LUNGS: No audible rhonchi or wheezes. HEART: Rate and Rhythm are regular. ABDOMEN: Nontender. EXTREMITITES: Trace edema. Objective - Vital Signs Vital signs: Vital Signs Temp 97.4 F L 07/08/23 08:45 Pulse 96 07/08/23 08:45 Resp 20 07/08/23 08:45 BP 142/46 07/08/23 08:45 Pulse Ox 96 07/08/23 08:45 FiO2 Intake & Output 07/07/23 07/08/23 07/08/23 18:59 06:59 18:59 Intake Total 720 120 Output Total 300 1600 Balance 420 -1480 Weight 77.9 kg Intake: Oral 720 120 Output: Urine 300 1600 Other: Voiding Method Toilet Toilet Urinal Urinal # Voids 3 1 1 # Bowel Movements 1 - Labs CBC & Chem 7: 07/08/23 06:07 07/08/23 06:07 Labs: Abnormal Lab Results - Last 24 Hours (Table) 07/08/23 07/08/23 07/08/23 Range/Units 01:43 06:07 06:07 RBC 4.12 L (4.30-5.90) m/uL Hgb 11.0 L (13.0-17.5) gm/dL Hct 35.7 L (39.0-53.0) % MCHC 30.8 L (31.0-37.0) g/dL RDW 16.9 H (11.5-15.5) % Sodium 136 L (137-145) mmol/L BUN 56 H (9-20) mg/dL Creatinine 2.66 H (0.66-1.25) mg/dL Glucose 131 H (74-99) mg/dL AST 136 H (17-59) U/L ALT 137 H (4-49) U/L Alkaline Phosphatase 268 H (38-126) U/L Total Protein 6.2 L (6.3-8.2) g/dL Vitamin B12 1300.0 H (200.0-944.0) pg/mL Assessment and Plan Plan: Assessment: 1. Acute kidney injury secondary to ATN secondary to cardiorenal syndrome. Creatinine stable at 2.66 today. CAT scan from May 2023 showed no evidence of hydronephrosis. 2. Acute on chronic systolic CHF ejection fraction of 20 to 25% with mild to moderate mitral and tricuspid regurgitation. 3. Volume overload. 4. Chronic kidney disease stage IV baseline creatinine 2.2-2.5 secondary to cardiorenal syndrome. Plan: Maintain IV Lasix. Repeat chest x-ray tomorrow morning. Avoid nephrotoxins. Continue to monitor renal function and urine output.
[2023-07-08 11:34] VITALS: BMI 24.6
--- NOTE | 2023-07-08 12:49 | P.PN ---
Subjective Progress Note Date: 07/08/23 History of present illness: This is an 83-year-old male patient of Dr. RIK Ferrer with past medical history of coronary artery disease status post PCI with recent ischemic cardiomyopathy, hypertension, CVA status post carotid surgery, chronic kidney disease, hyperlipidemia, remote history of tobacco use and dependence. We have been asked to evaluate the patient for shortness of breath. He apparently did not wear his oxygen overnight and woke up short of breath. EMS was called and he was brought in. He is sleeping laying flat in bed now looking comfortable with his and daughter at the bedside. He has been started on IV lasix BID. EKG sinus rhythm with left bundle branch block Chest x-ray: Consistent with mild to moderate CHF. Laboratory data reviewed, hemoglobin 9.5, platelets 165, sodium 136, potassium 2.7, creatinine 2.02, magnesium 1.9, troponin 0.0 42, 0.0 53, NT proBNP 44,700. Home cardiac medications: Aspirin 81 mg daily, atorvastatin 40 mg daily, Coreg 6.25 mg twice daily, Plavix 75 mg daily Lasix 40 mg twice daily, midodrine 10 mg 3 times daily, Nitrostat as needed. Patient also on Hytrin 5 mg at bedtime Echocardiogram performed on 05/16/2023 revealed technically difficult study. Inadequate visualization of 2 or more contiguous segments. EF 20 to 25%. Mild to moderate mitral regurgitation and mild to moderate tricuspid regurgitation and mild pulmonary hypertension. PCI performed 03/21/2023 with PTCA and stenting of the proximal and mid LAD and major diagonal branch. Transit diagonal occlusion with periprocedure DE chest pain resolved. Echo revealed EF of 35%. No new hypokinesia in the LAD or diagonal distribution. Cardiac catheterization performed 02/28/2023 revealed elevated filling pressures. No gradient across the valve. RCA 55% mid lesion distal to the stent and 40% proximal lesion before the stent. LM 10 to 50% narrowing. LAD with long 80% lesion from the ostium to the mid portions. Circumflex stented segment patent. High OM 70% narrowing in 80% groove branch narrow. 07/07/2023 Patient seen and examined resting comfortably laying flat in bed with family at the bedside. He is a bit more lethargic today. Blood pressure 125/78 heart ra te 68 afebrile maintaining oxygen saturation on nasal cannula. Laboratory data reviewed, WBC 7, hemoglobin 11.1, platelets 168, sodium 138, potassium 3.5, creatinine 2.6 and magnesium 2.3. Family is tearful at the bedside. His states that the patient has verbalized to her he is tired. 07/08 Yesterday, IV diuretics changed to Bumex 1 mg oral twice daily and midodrine was changed to as needed. Patient denies any new concerns today. Dr. Chow discussed the concern for patient's prognosis and plan is he will discuss hospice care with the family. Blood pressure 142/56, heart rate 96, pulse ox 96% on 2 L nasal cannula. Telemetry is sinus rhythm. Physical examination: Gen: This is an 83-year-old male resting in and appears to be in no acute distress Vital signs, blood pressure 131/83 heart rate 73 afebrile maintaining oxygen saturation on nasal cannula. HEENT: Head is atraumatic, normocephalic. Pupils equal, round. Sclerae is anicteric. NECK: Supple. Positive JVD. LUNGS: Clear to auscultation. No wheezes or rhonchi. No intercostal retractions. HEART: Regular rate and rhythm. No murmur. ABDOMEN: Soft No tenderness. EXTREMITIES: No pedal edema. No calf tenderness. NEUROLOGICAL: Patient is lethargic. Assessment: Acute on chronic systolic heart failure Known history of coronary artery disease Ischemic cardiomyopathy Hypertension History of CVA with right-sided carotid endarterectomy Chronic kidney disease Hyperlipidemia Remote history of tobacco use and dependence Plan: Continue Bumex 1 mg p.o. twice daily. Continue midodrine as needed. No need to repeat echo on this admission, he just had one done revealing poor LV systolic function. Patient is not on PARKER inhibitor or ARB secondary to abnormal kidney function. Prognosis guarded, discussed with family considering possible palliative/hospice care. They seem receptive. Tried to speak with family in more detail. Further recommendations to follow based upon clinical course Nurse practitioner note has been reviewed, I agree with documented findings and plan of care. Patient was seen and examined. Objective - Vital Signs Vital signs: Vital Signs Temp 97.4 F L 07/07/23 20:35 Pulse 98 07/08/23 03:15 Resp 22 07/08/23 03:15 BP 153/95 07/08/23 03:15 Pulse Ox 91 L 07/08/23 03:15 FiO2 Intake & Output 07/07/23 07/08/23 07/08/23 18:59 06:59 18:59 Intake Total 720 120 Output Total 300 1600 Balance 420 -1480 Weight 77.9 kg Intake: Oral 720 120 Output: Urine 300 1600 Other: Voiding Method Toilet Toilet Urinal Urinal # Voids 3 1 1 # Bowel Movements 1 - Labs CBC & Chem 7: 07/08/23 06:07 07/08/23 06:07 Labs: Abnormal Lab Results - Last 24 Hours (Table) 07/07/23 07/08/23 07/08/23 Range/Units 10:01 01:43 06:07 RBC 4.12 L (4.30-5.90) m/uL Hgb 11.0 L (13.0-17.5) gm/dL Hct 35.7 L (39.0-53.0) % MCHC 30.8 L (31.0-37.0) g/dL RDW 16.9 H (11.5-15.5) % ABG pH 7.60 H* (7.35-7.45) ABG pCO2 31 L (35-45) mmHg ABG pO2 126 H (83-108) mmHg ABG HCO3 31 H (21-25) mmol/L ABG Total CO2 32 H (19-24) mmol/L ABG O2 Saturation 97.6 H (94-97) % Sodium (137-145) mmol/L BUN (9-20) mg/dL Creatinine (0.66-1.25) mg/dL Glucose (74-99) mg/dL AST (17-59) U/L ALT (4-49) U/L Alkaline Phosphatase (38-126) U/L Total Protein (6.3-8.2) g/dL Vitamin B12 1300.0 H (200.0-944.0) pg/mL 07/08/23 Range/Units 06:07 RBC (4.30-5.90) m/uL Hgb (13.0-17.5) gm/dL Hct (39.0-53.0) % MCHC (31.0-37.0) g/dL RDW (11.5-15.5) % ABG pH (7.35-7.45) ABG pCO2 (35-45) mmHg ABG pO2 (83-108) mmHg ABG HCO3 (21-25) mmol/L ABG Total CO2 (19-24) mmol/L ABG O2 Saturation (94-97) % Sodium 136 L (137-145) mmol/L BUN 56 H (9-20) mg/dL Creatinine 2.66 H (0.66-1.25) mg/dL Glucose 131 H (74-99) mg/dL AST 136 H (17-59) U/L ALT 137 H (4-49) U/L Alkaline Phosphatase 268 H (38-126) U/L Total Protein 6.2 L (6.3-8.2) g/dL Vitamin B12 (200.0-944.0) pg/mL
--- NOTE | 2023-07-08 19:59 | P.PN ---
Subjective Progress Note Date: 07/08/23 I am seeing the patient for the first time during this admission. Please refer to Dr. Norton's notes for further details. It seems patient has AMS due to metabolic encephalopathy. He feels he is doing well. He has shortness of breath and states it is not new. Objective - Vital Signs Vital signs: Vital Signs Temp 97.4 F L 07/08/23 16:24 Pulse 50 L 07/08/23 16:24 Resp 18 07/08/23 16:24 BP 130/95 07/08/23 16:24 Pulse Ox 93 L 07/08/23 16:24 FiO2 Intake & Output 07/08/23 07/08/23 07/09/23 06:59 18:59 06:59 Intake Total 840 Output Total 2400 Balance -1560 Weight 77.9 kg 77.9 kg Intake: Oral 840 Output: Urine 2400 Other: Voiding Method Toilet Urinal # Voids 1 1 # Bowel Movements 1 - Exam General: Lying in bed and is not in acute distress. Neuro: Limited. Initially was sleeping but was briefly awakeable to voice. She is oriented to self and place. Patient is following simple commands. He has dysarthria No facial weakness. Right her extremities old and it's Limited because of the shoulder issues here otherwise lifted all extremities above gravity. - Labs CBC & Chem 7: 07/08/23 06:07 07/08/23 06:07 Labs: Abnormal Lab Results - Last 24 Hours (Table) 07/08/23 07/08/23 07/08/23 Range/Units 01:43 06:07 06:07 RBC 4.12 L (4.30-5.90) m/uL Hgb 11.0 L (13.0-17.5) gm/dL Hct 35.7 L (39.0-53.0) % MCHC 30.8 L (31.0-37.0) g/dL RDW 16.9 H (11.5-15.5) % Sodium 136 L (137-145) mmol/L BUN 56 H (9-20) mg/dL Creatinine 2.66 H (0.66-1.25) mg/dL Glucose 131 H (74-99) mg/dL AST 136 H (17-59) U/L ALT 137 H (4-49) U/L Alkaline Phosphatase 268 H (38-126) U/L Total Protein 6.2 L (6.3-8.2) g/dL Vitamin B12 1300.0 H (200.0-944.0) pg/mL Assessment and Plan Assessment: * Altered mental status, likely due to metabolic encephalopathy. Reasons multifactorial as mentioned below. * Chronic dizziness, probably from peripheral vestibular dysfunction. Patient has chronic right hearing loss. Rule out Mnire's. No significant wax impaction. Rule out other cardiopulmonary causes of dizziness. * Acute on chronic systolic CHF with volume overload * Metabolic alkalosis. * Chronic renal disease * Severe cardiomyopathy, with EF 25-30% * Hypokalemia * CAD * Hypertension * History of CVA 11/14/2022, with right sided TCAR * History of left ICA stenosis 70% * Hyperlipidemia * Legally blind left eye. * X tobacco use Plan: * Carotid Doppler, follow-up on left ICA stenosis. Patient has history of right T-CAR in October 2022. Carotid duplex: reported as 50-69% stenosis of the lefor carotid bifurcation. Less than 50% stenosis of right carotid bifurcation. I recommend the patient to consider vascular consult if lengthy stay and if not follow-up with vascular surgery as outpatient within 1-2 weeks. * Continue aspirin 81 mg, Plavix 75 mg and Lipitor 40 mg * Try meclizine 12.5 mg 3 times a day when necessary. * B12: 1300 * Serum folate: 5.30 (normal is 4.4-31). Is severely low normal, so I started him on folic acid 1mg daily. * Other medical management as per IM and other specialties on board. * Primary has ordered EEG: Preliminary report is normal. * 2-D echo pending per Dr. Norton. But I do not see order or report. * Telemetry monitoring reporting sinus arrhythmia. The plan is discussed with his nurse. Time with Patient: Less than 30
[2023-07-08] MEDS: FOLIC ACID 1 MG TAB PO SCH (20:24)
--- NOTE | 2023-07-08 21:18 | P.PN ---
Subjective Progress Note Date: 07/08/23 Principal diagnosis: Severe dyspnea and shortness of breath, respiratory failure, ischemic cardiomyopathy, acute on chronic systolic congestive heart failure, coronary artery disease, 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 History of present illness: 83-year-old male known to my office patient with multimedical problems known to have history of coronary artery disease postangioplasty and stent placement with severe ischemic cardiomyopathy with ejection fraction 20-25 percentile does not have a history of acute on chronic systolic congestive heart failure, history of CVA post carotid surgery, history of chronic kidney disease, history of hypertension, history of hyperlipidemia, history of COPD with remote smoking history, patient has been in and out of the hospital last few weeks multiple times secondary to complication related to chest pain and angina along with elevated troponin with non-ST ND along with worsening dyspnea and shortness of breath secondary to ischemic cardiomyopathy with supported echocardiogram last time was done May 16, 2023 with ejection fraction of 20-23 percentile. Patient had coronary angioplasty and stent placement back in March 21, 2023 involve the proximal and mid LAD and diagonal branch and since then he ended up going back to the [employer] [employer] at least 2 different time found to have blockage of the LAD 80%. He was in the hospital 2 weeks ago for dyspnea and shortness of breath was discharged and return to the emergency room This time on July 06 with significant dyspnea and shortness of breath patient has been on oxygen 17/12 lately despite all his medication medical management continue to have underlying of severe dyspnea and shortness of breath was observed in the emergency department with testing at the time performed shows respiration of 22 percentile with pulse oximetry still 98% on 3 L. Worsening kidney function with severe hypokalemia and recurrent elevated troponin. Chest x-ray provided shows s ignificant pulmonary edema at the time most likely from systolic congestive heart failure. He was hospitalized and seen cardiology for the above diagnosis decided to continue medical management with IV Lasix every 12 hours along with midodrine. His blood pressure and continue with secondary prevention for his stent placement remain on antiplatelet agent along with statin beta-laya and ARB. Patient also has slight altered mental status and slightly with worsening confusion consult neurology apparently early on psych the patient was seen psych and manage for mood disorders due to his poor medical condition making patient extremely depressed. Neurology overall has seen patient as well for his altered mental status due to metabolic encephalopathy and mild hypoxia most likely from his heart failure also was seen for severe dizziness most likely peripheral vestibular dysfunction. With the significant change in kidney function worsening stage IIIb chronic kidney disease patient was seen nephrology as well and decided this is acute kidney injury secondary to ATN most likely from cardiogenic syndrome especially with his low ejection fraction and severe valvular heart disease with moderate mitral and tricuspid regurgitation. To continue gentle hydration watch his kidney function carefully. I have seen patient today he continues to have severe decline in overall condi tion specially physically and mentally addressed with him initially and then family furthermore the extreme high mortality despite all current management and this time to change his CODE STATUS probably to DO NOT RESUSCITATE/think about end-of-life and hospice care and recommend family to think about it and does need to meet in person to Meet me in the afternoon. The who is the decision-maker at this point will talk to the case and probably in their plan to see if they are able to do hospice at home or they have to do hospice and senior living on the hospice house. REVIEW OF SYSTEMS: CONSTITUTIONAL: Elderly laying in bed and quite with distress slightly confused. 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 EARS, NOSE, MOUTH, THROAT, and FACE: No sore throat, lymphadenopathy, carotid bruits or deformity. RESPIRATORY: Mild dyspnea and shortness of breath. CARDIOVASCULAR: Worsening cardiomyopathy and congestive heart failure exacerbation. GASTROINTESTINAL: No Abd pain, Nausea or vomiting, no Diarrhea or constipation, No GI Bleed, no distention or masses. GENITOURINARY: Negative for Hematuria or UTI, no kidney stones. INTEGUMENT/BREAST: Negative for any muscular injury with mild osteoarthritis.. HEMATOLOGIC/LYMPHATIC: Negative for bleed or purpura. MUSCULOSKELTAL: Negative for Myalgia or arthralgia. NEURLOGICAL: Significant confusion and altered mental status with slight left- sided weakness. BEHAVIORAL/PSYCH: Mild systemic depression. ENDOCRINE: Negative. Physical Examination: General Appearance: Alert, slightly confused cooperative and looks in mild distress. Neck HEENT: Supple, no lymphadenopathy, no thyroid enlargement, no carotid bruits. Blind in the left eye. Lungs: Decreased breath sound bilaterally with fine rhonchi and mild expiratory wheezes with crackles in the bases. Chest Wall: Chest wall normal expansion with deep inspiration no tenderness and no deformity was found on exam, no costochondral pain or discomfort. Heart: Irregular rhythm and rate S1-S2 positive S3 positive pelvis ejection systolic murmur in the apex. Back: Symmetric, no curvature, ROM normal, no CVA tenderness. Abdomen: Soft, non-tender, bowel sounds active all four quadrants, no masses, no organomegaly. Extremities: Extremities normal, atraumatic, no cyanosis significant peripheral edema. Pulses: 2+ and symmetric. Skin: Skin color, texture, tugor normal, no rashes or lesions. Neurologic: Alert oriented with slight confusion still have slight weakness on the left side. Assessment and plan: 1 severe dyspnea and shortness of breath: Combination of severe cardiomyopathy along with worsening systolic congestive heart failure, will continue diuretics at this point continue midodrine for supportive of his blood pressure he is not able to tolerate or being on PARKER or ARB for his kidney function and for his hypertension eventually patient might benefit from being on Entresto if the blood pressure will allow. Still seen and managed with cardiology as well. 2 severe hypoxia and tachypnea: Most likely from his ischemic cardiomyopathy and heart failure with low ejection fraction, continue oxygen and again talked to the patient about end-of-life and possible hospice care secondary to his cardiomyopathy and advanced heart disease. 3 ischemic cardiomyopathy with low ejection fraction at 20 percentile with multiple angioplasty and stent placement currently medical management only. 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 5 acute kidney injury with stage III chronic kidney disease: Still seeing nephrology avoid any nephrotoxic agent, continue to support his blood pressure repeat chemistry and creatinine daily. 6 acute hepatic abnormality significant abnormal liver function test mostly from hypoperfusion secondary to heart failure at this point. 7 Severe hypertension: Mostly not been able to advance heart failure medication remain currently on midodrine 10 mg 3 times a day. 8 anasarca mostly from heart failure and cardiomyopathy will remain on advanced diuretic management. 9 chronic neuropathy: Has been on gabapentin 200 mg twice a day since his shingles recently. Severe BPH with no sign of obstruction catheter is out at this point but remain on Hytrin 5 mg at bedtime along with finasteride 5 mg daily. Plan debility with worsening physical debility secondary to his advanced heart disease patient will probably benefit from doing palliative care and hospice at this point. CODE STATUS remain up to today full code. Discharge planning: Long discussion with patient and family most likely will end up doing palliative and hospice care in the next 48 hours. Objective - Vital Signs Vital signs: Vital Signs Temp 97.4 F L 07/08/23 16:24 Pulse 50 L 07/08/23 16:24 Resp 18 07/08/23 16:24 BP 130/95 07/08/23 16:24 Pulse Ox 93 L 07/08/23 16:24 FiO2 Intake & Output 07/08/23 07/08/23 07/09/23 06:59 18:59 06:59 Intake Total 840 Output Total 2400 Balance -1560 Weight 77.9 kg 77.9 kg Intake: Oral 840 Output: Urine 2400 Other: Voiding Method Toilet Urinal # Voids 1 1 # Bowel Movements 1 - Labs CBC & Chem 7: 07/08/23 06:07 07/08/23 06:07 Labs: Abnormal Lab Results - Last 24 Hours (Table) 07/08/23 07/08/23 07/08/23 Range/Units 01:43 06:07 06:07 RBC 4.12 L (4.30-5.90) m/uL Hgb 11.0 L (13.0-17.5) gm/dL Hct 35.7 L (39.0-53.0) % MCHC 30.8 L (31.0-37.0) g/dL RDW 16.9 H (11.5-15.5) % Sodium 136 L (137-145) mmol/L BUN 56 H (9-20) mg/dL Creatinine 2.66 H (0.66-1.25) mg/dL Glucose 131 H (74-99) mg/dL AST 136 H (17-59) U/L ALT 137 H (4-49) U/L Alkaline Phosphatase 268 H (38-126) U/L Total Protein 6.2 L (6.3-8.2) g/dL Vitamin B12 1300.0 H (200.0-944.0) pg/mL
--- NOTE | 2023-07-09 00:37 | EEG ---
ELECTROENCEPHALOGRAM REPORT CLINICAL HISTORY: This is an 83-year-old gentleman with altered mental status. The video EEG is obtained to evaluate for seizure epileptiform activity. RELEVANT MEDICATION: Gabapentin. EEG TYPE: A routine 21-channel EEG with video using the 10/20 electrode placement system. DESCRIPTION: Wakefulness is only obtained. During awake state the posterior-dominant rhythm consists of pdn-ed-pluynetr voltage of 8.5-9.5 hertz activity that is well modulated well sustained. There is no physiological stage 2 sleep architecture. There is no focal slowing. Interictal and ictal is none. ACTIVATION PROCEDURE: Photic stimulation did not evoke a posterior driving response. There is no abnormality during the photic stimulation. Hyperventilation is not performed. CLINICAL INTERPRETATION: This is a normal routine EEG. There is no focal slowing, epileptiform discharge, or seizure on the EEG. A normal routine EEG does not rule out underlying epilepsy. Clinical correlation is recommended. ORQUIDEA / FERMÍNN: [id number] / MTDD
[2023-07-09 07:06] LABS: African American GFR (CKD) 25 (>60 ml/min/1.73 sqM); Anion Gap 9 mmol/L; Blood Urea Nitrogen 60 mg/dL (9-20); Carbon Dioxide 25 mmol/L (22-30); Chloride 100 mmol/L (98-107); Glucose 119 mg/dL (74-99); Magnesium 2.4 mg/dL (1.6-2.3); Non-African American GFR(CKD) 21 (>60 ml/min/1.73 sqM); Potassium 4.5 mmol/L (3.5-5.1); Sodium 134 mmol/L (137-145)
[2023-07-09 08:58] LABS: Anisocytosis Slight; Basophils % (A) 1 %; Eosinophils # (A) 0.1 k/uL (0-0.7); Eosinophils % (A) 2 %; HCT 33.5 % (39.0-53.0); HGB 10.6 gm/dL (13.0-17.5); Hypochromasia Marked; Lymphocytes # (A) 1.5 k/uL (1.0-4.8); Lymphocytes % (A) 22 %; MCH 27.4 pg (25.0-35.0); MCHC 31.5 g/dL (31.0-37.0); MCV 87.1 fL (80.0-100.0); Mean Platelet Volume 10.3; Monocytes # (A) 0.3 k/uL (0-1.0); Monocytes % (A) 5 %; Neutrophils % (A) 71 %; Platelet Count 163 k/uL (150-450); RBC 3.85 m/uL (4.30-5.90); RDW 16.8 % (11.5-15.5); WBC 7.1 k/uL (3.8-10.6)
--- NOTE | 2023-07-09 09:11 | XR ---
EXAMINATION TYPE: XR chest 1V DATE OF EXAM: 07/09/2023 7:31 AM CLINICAL INDICATION:Male, 83 years old with history of sob; [facility] COMPARISON: Chest radiographs from 07/06/2023 TECHNIQUE: XR chest 1V Frontal view of the chest. FINDINGS: Lungs/Pleura: No evidence of focal consolidation or pneumothorax. Blunting of the costophrenic angles is present. Pulmonary vascularity: Pulmonary vascular congestion. Heart/mediastinum: Cardiomediastinal silhouette is enlarged and stable. Musculoskeletal: No acute osseous pathology. Other findings: None IMPRESSION: Cardiomegaly, pulmonary vascular congestion and bilateral pleural effusions. Correlate with BNP for c ongestive heart failure.
[2023-07-09 09:18] LABS: ALT 104 U/L (4-49); AST 64 U/L (17-59); African American GFR (CKD) 26 (>60 ml/min/1.73 sqM); Albumin 3.4 g/dL (3.5-5.0); Alkaline Phosphatase 217 U/L (38-126); Anion Gap 9 mmol/L; Blood Urea Nitrogen 63 mg/dL (9-20); Carbon Dioxide 28 mmol/L (22-30); Chloride 99 mmol/L (98-107); Glucose 143 mg/dL (74-99); Non-African American GFR(CKD) 22 (>60 ml/min/1.73 sqM); Potassium 4.6 mmol/L (3.5-5.1); Sodium 136 mmol/L (137-145); Total Bilirubin 0.8 mg/dL (0.2-1.3)
--- NOTE | 2023-07-09 11:10 | P.PN ---
Subjective Patient is seen in follow-up for acute kidney injury on chronic kidney disease. Renal function stable. On IV Lasix. Admits to good urine output. Denies chest pain or shortness of breath. Vital signs are stable. General: No acute distress. HEENT: Head exam is unremarkable. On 2 L nasal cannula. LUNGS: No audible rhonchi or wheezes. HEART: Rate and Rhythm are regular. ABDOMEN: Nontender. EXTREMITITES: Trace edema. Objective - Vital Signs Vital signs: Vital Signs Temp 97 F L 07/09/23 08:00 Pulse 78 07/09/23 08:00 Resp 24 07/09/23 08:00 BP 121/78 07/09/23 08:00 Pulse Ox 93 L 07/09/23 08:08 FiO2 Intake & Output 07/08/23 07/09/23 07/09/23 18:59 06:59 18:59 Intake Total 840 594 Output Total 2400 900 Balance -1560 -900 594 Weight 77.9 kg 78.7 kg Intake: Oral 840 594 Output: Urine 2400 900 Other: Voiding Method Toilet Urinal # Voids 1 - Labs CBC & Chem 7: 07/09/23 08:47 07/09/23 08:47 Labs: Abnormal Lab Results - Last 24 Hours (Table) 07/09/23 07/09/23 07/09/23 Range/Units 06:23 08:47 08:47 RBC 3.85 L (4.30-5.90) m/uL Hgb 10.6 L (13.0-17.5) gm/dL Hct 33.5 L (39.0-53.0) % RDW 16.8 H (11.5-15.5) % Sodium 134 L 136 L (137-145) mmol/L BUN 60 H 63 H (9-20) mg/dL Creatinine 2.63 H 2.53 H (0.66-1.25) mg/dL Glucose 119 H 143 H (74-99) mg/dL Magnesium 2.4 H (1.6-2.3) mg/dL AST 64 H (17-59) U/L ALT 104 H (4-49) U/L Alkaline Phosphatase 217 H (38-126) U/L Total Protein 6.0 L (6.3-8.2) g/dL Albumin 3.4 L (3.5-5.0) g/dL Assessment and Plan Plan: Assessment: 1. Acute kidney injury secondary to ATN secondary to cardiorenal syndrome. Creatinine stable at 2.53 today. CAT scan from May 2023 showed no evidence of hydronephrosis. 2. Acute on chronic systolic CHF ejection fraction of 20 to 25% with mild to moderate mitral and tricuspid regurgitation. 3. Volume overload. Improving with diuresis. 4. Chronic kidney disease stage IV baseline creatinine 2.2-2.5 secondary to cardiorenal syndrome. Plan: Patient changed from IV Lasix to oral Bumex by cardiology today. Maintain low-salt diet. Add 1200 cc fluid restriction. Avoid nephrotoxins. Continue to monitor renal function and urine output. Hospice being considered.
--- NOTE | 2023-07-09 12:57 | P.DS ---
Providers Date of admission: 07/06/23 10:52 Attending physician: Armen Adames Consults: 07/06/23 10:52 Consult Physician Routine Consulting Provider: [facility] Consult Reason/Comments: Acute pulmonary edema Do you want consulting provider notified?: Yes 07/06/23 12:53 Consult Physician Routine Consulting Provider: Juju Doty Consult Reason/Comments: Acute on chronic kidney disease Do you want consulting provider notified?: Yes 07/06/23 13:34 Consult Physician Routine Consulting Provider: Familia Hdez Consult Reason/Comments: Thoughts about suicide Do you want consulting provider notified?: Yes 07/07/23 09:33 Consult Physician Routine Consulting Provider: Nohemy Norton Consult Reason/Comments: AMS Do you want consulting provider notified?: Yes Primary care physician: Armen Adames [place] [facility] Course: Principal diagnosis: Severe dyspnea and shortness of breath, respiratory failure, ischemic cardiomyopathy, acute on chronic systolic congestive heart failure, coronary artery disease, 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 History of present illness: 83-year-old male known to my office patient with multimedical problems known to have history of coronary artery disease postangioplasty and stent placement with severe ischemic cardiomyopathy with ejection fraction 20-25 percentile does not have a history of acute on chronic systolic congestive heart failure, history of CVA post carotid surgery, history of chronic kidney disease, history of hy pertension, history of hyperlipidemia, history of COPD with remote smoking history, patient has been in and out of the hospital last few weeks multiple times secondary to complication related to chest pain and angina along with elevated troponin with non-ST AL along with worsening dyspnea and shortness of breath secondary to ischemic cardiomyopathy with supported echocardiogram last time was done May 16, 2023 with ejection fraction of 20-23 percentile. Patient had coronary angioplasty and stent placement back in March 21, 2023 involve the proximal and mid LAD and diagonal branch and since then he ended up going back to the [facility] at least 2 different time found to have blockage of the LAD 80%. He was in the hospital 2 weeks ago for dyspnea and shortness of breath was discharged and return to the emergency room This time on July 06 with significant dyspnea and shortness of breath patient has been on oxygen 17/12 lately despite all his medication medical management continue to have underlying of severe dyspnea and shortness of breath was observed in the emergency department with testing at the time performed shows respiration of 22 percentile with pulse oximetry still 98% on 3 L. Worsening kidney function with severe hypokalemia and recurrent elevated troponin. Chest x-ray provided shows significant pulmonary edema at the time most likely from systolic congestive heart failure. He was hospitalized and seen cardiology for the above diagnosis decided to continue medical management with IV Lasix every 12 hours along with midodrine. His blood pressure and continue with secondary prevention for his stent placement remain on antiplatelet agent along with statin beta-laya and ARB. Patient also has slight altered mental status and slightly with worsening confusion consult neurology apparently early on psych the patient was seen psych and manage for mood disorders due to his poor medical condition making patient extremely depressed. Neurology overall has seen patient as well for his altered mental status due to metabolic encephalopathy and mild hypoxia most likely from his heart failure also was seen for severe dizziness most likely peripheral vestibular dysfunction. With the significant change in kidney function worsening stage IIIb chronic kidney disease patient was seen nephrology as well and decided this is acute kidney injury secondary to ATN most likely from cardiogenic syndrome especially with his low ejection fraction and severe valvular heart disease with moderate mitral and tricuspid regurgitation. To continue gentle hydration watch his kidney function carefully. I have seen patient today he continues to have severe decline in overall condition specially physically and mentally addressed with him initially and then family furthermore the extreme high mortality despite all current management and this time to change his CODE STATUS probably to DO NOT RESUSCITATE/think about end-of-life and hospice care and recommend family to think about it and does need to meet in person to Meet me in the afternoon. The who is the decision-maker at this point will talk to the case and probably in their plan to see if they are able to do hospice at home or they have to do hospice and fpc on the hospice house. REVIEW OF SYSTEMS: CONSTITUTIONAL: Elderly laying in bed and quite with distress slightly confused. 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 EARS, NOSE, MOUTH, THROAT, and FACE: No sore throat, lymphadenopathy, carotid bruits or deformity. RESPIRATORY: Mild dyspnea and shortness of breath. CARDIOVASCULAR: Worsening cardiomyopathy and congestive heart failure exa cerbation. GASTROINTESTINAL: No Abd pain, Nausea or vomiting, no Diarrhea or constipation, No GI Bleed, no distention or masses. GENITOURINARY: Negative for Hematuria or UTI, no kidney stones. INTEGUMENT/BREAST: Negative for any muscular injury with mild osteoarthritis.. HEMATOLOGIC/LYMPHATIC: Negative for bleed or purpura. MUSCULOSKELTAL: Negative for Myalgia or arthralgia. NEURLOGICAL: Significant confusion and altered mental status with slight left- sided weakness. BEHAVIORAL/PSYCH: Mild systemic depression. ENDOCRINE: Negative. Physical Examination: General Appearance: Alert, slightly confused cooperative and looks in mild distress. Neck HEENT: Supple, no lymphadenopathy, no thyroid enlargement, no carotid bruits. Blind in the left eye. Lungs: Decreased breath sound bilaterally with fine rhonchi and mild expiratory wheezes with crackles in the bases. Chest Wall: Chest wall normal expansion with deep inspiration no tenderness and no deformity was found on exam, no costochondral pain or discomfort. Heart: Irregular rhythm and rate S1-S2 positive S3 positive pelvis ejection systolic murmur in the apex. Back: Symmetric, no curvature, ROM normal, no CVA tenderness. Abdomen: Soft, non-tender, bowel sounds active all four quadrants, no masses, no organomegaly. Extremities: Extremities normal, atraumatic, no cyanosis significant peripheral edema. Pulses: 2+ and symmetric. Skin: Skin color, texture, tugor normal, no rashes or lesions. Neurologic: Alert oriented with slight confusion still have slight weakness on the left side. Assessment and plan: 1 severe dyspnea and shortness of breath: Combination of severe cardiomyopathy along with worsening systolic congestive heart failure, will continue diuretics at this point continue midodrine for supportive of his blood pressure he is not able to tolerate or being on PARKER or ARB for his kidney function and for his hypertension eventually patient might benefit from being on Entresto if the blood pressure will allow. Still seen and managed with cardiology as well. 2 severe hypoxia and tachypnea: Most likely from his ischemic cardiomyopathy and heart failure with low ejection fraction, continue oxygen and again talked to the patient about end-of-life and possible hospice care secondary to his cardiomyopathy and advanced heart disease. 3 ischemic cardiomyopathy with low ejection fraction at 20 percentile with multiple angioplasty and stent placement currently medical management only. 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 5 acute kidney injury with stage III chronic kidney disease: Still seeing nephrology avoid any nephrotoxic agent, continue to support his blood pressure repeat chemistry and creatinine daily. 6 acute hepatic abnormality significant abnormal liver function test mostly from hypoperfusion secondary to heart failure at this point. 7 Severe hypertension: Mostly not been able to advance heart failure medication remain currently on midodrine 10 mg 3 times a day. 8 anasarca mostly from heart failure and cardiomyopathy will remain on advanced diuretic management. 9 chronic neuropathy: Has been on gabapentin 200 mg twice a day since his shingles recently. Severe BPH with no sign of obstruction catheter is out at this point but remain on Hytrin 5 mg at bedtime along with finasteride 5 mg daily. Plan debility with worsening physical debility secondary to his advanced heart disease patient will probably benefit from doing palliative care and hospice at this point. Consult to the hospice care family and patient are agreeable to it and the plan to take him home today on hospice care with current medication as an adjusted management including having to use oxygen 24/7, having to have him on addition morphine and lorazepam on as-needed basis for anxiety and pain. Patient mortality from his severe dyspnea hypoxic ischemic cardiomyopathy is extremely high with or without hospice care his mortality will be very high in the next few weeks and explanation family were giving changing his CODE STATUS DO NOT RESUSCITATE and family were agreeable to hospice. Patient be discharged home today on hospice care. Plan - Discharge Summary Discharge Rx Participant: No New Discharge Prescriptions: New Meclizine [Antivert] 12.5 mg PO TID PRN #60 tab PRN Reason: Vertigo Folic Acid 1 mg PO DAILY #30 tab Potassium Chloride ER [K-Dur 20] 20 meq PO BID tab Continue Aspirin 81 mg PO DAILY tab Lactulose 10 gm PO DAILY PRN PRN Reason: Constipation Omeprazole [PriLOSEC] 20 mg PO AC-BRKFST #30 cap Finasteride [Proscar] 5 mg PO DAILY #30 tab Terazosin [Hytrin] 5 mg PO HS Clopidogrel [Plavix] 75 mg PO DAILY Atorvastatin [Lipitor] 40 mg PO HS #30 tab Gabapentin [Neurontin] 200 mg PO BID Nitroglycerin Sl Tabs [Nitrostat] 0.4 mg SL Q5M PRN PRN Reason: Chest Pain carvediloL [Coreg] 6.25 mg PO BID-W/MEALS #60 tab Midodrine [ProAmatine] 10 mg PO AC-TID #90 tab Acetaminophen Tab [Tylenol] 650 mg PO Q6HR PRN tab PRN Reason: Mild Pain Or Fever > 100.5 Furosemide [Lasix] 80 mg PO BID@0900,1600 30 Days #30 tab Ciprofloxacin HCl [Cipro] 250 mg PO Q12HR Discharge Medication List Atorvastatin [Lipitor] 40 mg PO HS #30 tab 11/21/22 [Rx] Aspirin 81 mg PO DAILY tab 03/22/23 [Rx] Gabapentin [Neurontin] 200 mg PO BID 04/25/23 [History] Lactulose 10 gm PO DAILY PRN 06/02/23 [History] Nitroglycerin Sl Tabs [Nitrostat] 0.4 mg SL Q5M PRN 06/02/23 [History] Omeprazole [PriLOSEC] 20 mg PO AC-BRKFST #30 cap 06/04/23 [Rx] Acetaminophen Tab [Tylenol] 650 mg PO Q6HR PRN tab 06/18/23 [Rx] Midodrine [ProAmatine] 10 mg PO AC-TID #90 tab 06/18/23 [Rx] carvediloL [Coreg] 6.25 mg PO BID-W/MEALS #60 tab 06/18/23 [Rx] Finasteride [Proscar] 5 mg PO DAILY #30 tab 06/19/23 [Rx] Clopidogrel [Plavix] 75 mg PO DAILY 06/25/23 [History] Terazosin [Hytrin] 5 mg PO HS 06/25/23 [History] Furosemide [Lasix] 80 mg PO BID@0900,1600 30 Days #30 tab 06/29/23 [Rx] Ciprofloxacin HCl [Cipro] 250 mg PO Q12HR 07/06/23 [History] Folic Acid 1 mg PO DAILY #30 tab 07/09/23 [Rx] Meclizine [Antivert] 12.5 mg PO TID PRN #60 tab 07/09/23 [Rx] Potassium Chloride ER [K-Dur 20] 20 meq PO BID tab 07/09/23 [Rx] Follow up Appointment(s)/Referral(s): Hospice,[facility] [NON-STAFF] - Armen Adames MD [Primary Care Provider] - 1-2 days [facility], [NON-STAFF] -
[2023-07-09 13:04] VITALS: BP 137/82; PULSE 89; RESP 20; TEMP 97.5
--- NOTE | 2023-07-09 14:52 | P.PN ---
Subjective Progress Note Date: 07/09/23 History of present illness: This is an 83-year-old male patient of Dr. RIK Ferrer with past medical history of coronary artery disease status post PCI with recent ischemic cardiomyopathy, hypertension, CVA status post carotid surgery, chronic kidney disease, hyperlipidemia, remote history of tobacco use and dependence. We have been asked to evaluate the patient for shortness of breath. He apparently did not wear his oxygen overnight and woke up short of breath. EMS was called and he was brought in. He is sleeping laying flat in bed now looking comfortable with his and daughter at the bedside. He has been started on IV lasix BID. EKG sinus rhythm with left bundle branch block Chest x-ray: Consistent with mild to moderate CHF. Laboratory data reviewed, hemoglobin 9.5, platelets 165, sodium 136, potassium 2.7, creatinine 2.02, magnesium 1.9, troponin 0.0 42, 0.0 53, NT proBNP 44,700. Home cardiac medications: Aspirin 81 mg daily, atorvastatin 40 mg daily, Coreg 6.25 mg twice daily, Plavix 75 mg daily Lasix 40 mg twice daily, midodrine 10 mg 3 times daily, Nitrostat as needed. Patient also on Hytrin 5 mg at bedtime Echocardiogram performed on 05/16/2023 revealed technically difficult study. Inadequate visualization of 2 or more contiguous segments. EF 20 to 25%. Mild to moderate mitral regurgitation and mild to moderate tricuspid regurgitation and mild pulmonary hypertension. PCI performed 03/21/2023 with PTCA and stenting of the proximal and mid LAD and major diagonal branch. Transit diagonal occlusion with periprocedure PR chest pain resolved. Echo revealed EF of 35%. No new hypokinesia in the LAD or diagonal distribution. Cardiac catheterization performed 02/28/2023 revealed elevated filling pressures. No gradient across the valve. RCA 55% mid lesion distal to the stent and 40% proximal lesion before the stent. LM 10 to 50% narrowing. LAD with long 80% lesion from the ostium to the mid portions. Circumflex stented segment patent. High OM 70% narrowing in 80% groove branch narrow. 07/07/2023 Patient seen and examined resting comfortably laying flat in bed with family at the bedside. He is a bit more lethargic today. Blood pressure 125/78 heart ra te 68 afebrile maintaining oxygen saturation on nasal cannula. Laboratory data reviewed, WBC 7, hemoglobin 11.1, platelets 168, sodium 138, potassium 3.5, creatinine 2.6 and magnesium 2.3. Family is tearful at the bedside. His states that the patient has verbalized to her he is tired. 07/08 Yesterday, IV diuretics changed to Bumex 1 mg oral twice daily and midodrine was changed to as needed. Patient denies any new concerns today. Dr. Chow discussed the concern for patient's prognosis and plan is he will discuss hospice care with the family. Blood pressure 142/56, heart rate 96, pulse ox 96% on 2 L nasal cannula. Telemetry is sinus rhythm. 07/09 Patient is maintained on oral medications including Bumex 1 mg twice daily and midodrine as needed. He denies any new concerns. Blood pressure 137/82, heart rate in the 70s to 80s. Pulse ox 97% on 2 L nasal cannula. WBC 7.1, hemoglobin 10.6, sodium 136, potassium 4.6, BUN 63 creatinine 2.53. Physical examination: Gen: This is an 83-year-old male resting in and appears to be in no acute distress Vital signs, blood pressure 131/83 heart rate 73 afebrile maintaining oxygen saturation on nasal cannula. HEENT: Head is atraumatic, normocephalic. Pupils equal, round. Sclerae is anicteric. NECK: Supple. Positive JVD. LUNGS: Clear to auscultation. No wheezes or rhonchi. No intercostal retractions. HEART: Regular rate and rhythm. No murmur. ABDOMEN: Soft No tenderness. EXTREMITIES: No pedal edema. No calf tenderness. NEUROLOGICAL: Patient is lethargic. Assessment: Acute on chronic systolic heart failure Known history of coronary artery disease Ischemic cardiomyopathy Hypertension History of CVA with right-sided carotid endarterectomy Chronic kidney disease Hyperlipidemia Remote history of tobacco use and dependence Plan: Continue Bumex 1 mg p.o. twice daily. Continue midodrine as needed. No need to repeat echo on this admission, he just had one done revealing poor LV systolic function. Patient is not on PARKER inhibitor or ARB secondary to abnormal kidney function. Patient is cleared for cardiology for discharge and may follow-up with Dr. RIK Ritter in 1 to 2 weeks if he does not go into hospice care. Nurse practitioner note has been reviewed, I agree with documented findings and plan of care. Patient was seen and examined. Objective - Vital Signs Vital signs: Vital Signs Temp 97 F L 07/09/23 08:00 Pulse 78 07/09/23 08:00 Resp 24 07/09/23 08:00 BP 121/78 07/09/23 08:00 Pulse Ox 93 L 07/09/23 08:08 FiO2 Intake & Output 07/08/23 07/09/23 07/09/23 18:59 06:59 18:59 Intake Total 840 594 Output Total 2400 900 Balance -1560 -900 594 Weight 77.9 kg 78.7 kg Intake: Oral 840 594 Output: Urine 2400 900 Other: Voiding Method Toilet Urinal # Voids 1 - Labs CBC & Chem 7: 07/09/23 08:47 07/09/23 08:47 Labs: Abnormal Lab Results - Last 24 Hours (Table) 07/09/23 07/09/23 07/09/23 Range/Units 06:23 08:47 08:47 RBC 3.85 L (4.30-5.90) m/uL Hgb 10.6 L (13.0-17.5) gm/dL Hct 33.5 L (39.0-53.0) % RDW 16.8 H (11.5-15.5) % Sodium 134 L 136 L (137-145) mmol/L BUN 60 H 63 H (9-20) mg/dL Creatinine 2.63 H 2.53 H (0.66-1.25) mg/dL Glucose 119 H 143 H (74-99) mg/dL Magnesium 2.4 H (1.6-2.3) mg/dL AST 64 H (17-59) U/L ALT 104 H (4-49) U/L Alkaline Phosphatase 217 H (38-126) U/L Total Protein 6.0 L (6.3-8.2) g/dL Albumin 3.4 L (3.5-5.0) g/dL
== END 2023-07-09 15:20 | disposition home or self-care (01) | DRG 291 ==
LOC: EC 09:15 → 3SCARD 10:52
PROVIDERS: ADMIT Internal Medicine Geriatric Medicine; ATTEND Internal Medicine Geriatric Medicine
PROC: 4A10X4Z Monitoring of Central Nervous Electrical Activity, External Approach (ICD-10-PCS; principal; 2023-07-08)
DX: I13.0 Hypertensive heart and chronic kidney disease with heart failure and stage 1 through stage 4 chronic kidney disease, or unspecified chronic kidney disease (principal); G93.41 Metabolic encephalopathy; I50.23 Acute on chronic systolic (congestive) heart failure; N17.0 Acute kidney failure with tubular necrosis; N18.4 Chronic kidney disease, stage 4 (severe); E87.3 Alkalosis; Z66 Do not resuscitate; Z51.5 Encounter for palliative care; R42 Dizziness and giddiness; R06.02 Shortness of breath; I08.1 Rheumatic disorders of both mitral and tricuspid valves; I25.10 Atherosclerotic heart disease of native coronary artery without angina pectoris; I25.2 Old myocardial infarction; H91.91 Unspecified hearing loss, right ear; E11.22 Type 2 diabetes mellitus with diabetic chronic kidney disease; E78.5 Hyperlipidemia, unspecified; F06.30 Mood disorder due to known physiological condition, unspecified; Z95.5 Presence of coronary angioplasty implant and graft; Z91.199 Patient's noncompliance with other medical treatment and regimen due to unspecified reason; Z86.73 Personal history of transient ischemic attack (TIA), and cerebral infarction without residual deficits; E87.6 Hypokalemia; H54.8 Legal blindness, as defined in USA; I25.5 Ischemic cardiomyopathy; F17.210 Nicotine dependence, cigarettes, uncomplicated; G89.29 Other chronic pain; E11.42 Type 2 diabetes mellitus with diabetic polyneuropathy; Z82.49 Family history of ischemic heart disease and other diseases of the circulatory system; Z80.0 Family history of malignant neoplasm of digestive organs; Z79.899 Other long term (current) drug therapy; Z79.82 Long term (current) use of aspirin; Z79.02 Long term (current) use of antithrombotics/antiplatelets; I27.20 Pulmonary hypertension, unspecified; I44.7 Left bundle-branch block, unspecified; I48.91 Unspecified atrial fibrillation; N40.0 Benign prostatic hyperplasia without lower urinary tract symptoms; Z99.81 Dependence on supplemental oxygen; Z96.653 Presence of artificial knee joint, bilateral
CPT/HCPCS: 36415; 36600; 70450; 71045; 71046; 80048; 80053; 82607; 82746; 82805; 83605; 83735; 83880; 84484; 85025; 85610; 85730; 93005; 93880; 94760; 95816; 96361; 96374; 96375; 99285